=== PATIENT | female | born 1980 | race Caucasian/White ===

== ENCOUNTER 2019-08-09 13:34 | Emergency (ER) | payer MEDICAID, SELFPAY ==
[2019-08-09 13:36] VITALS: BP 127/89; PULSE 105; RESP 20; TEMP 36.6; O2SAT 99
--- NOTE | 2019-08-09 13:45 | DI.RAD_ITS ---
EXAM: XR CHEST 2V PA LATERAL CLINICAL HISTORY: cough, right sided CP, SOb TECHNIQUE: 2D digital imaging was performed. COMPARISON: No exams were available for comparison FINDINGS: MEDIASTINUM: Normal. HEART: Normal. PULMONARY VASCULATURE: Normal. LUNGS: Clear. PLEURAL SPACE: No pleural effusion or pneumothorax. BONE:Normal. OTHER FINDINGS:Normal. IMPRESSION: No acute pulmonary findings. DATA REPOSITORY: RADIATION DOSE DELIVERED:
[2019-08-09 14:00] VITALS: PULSE 96; RESP 16; O2SAT 0
[2019-08-09] MEDS: Albuterol/Ipratropium 3 ML UPD VIAL UPD (14:00)
--- NOTE | 2019-08-09 14:15 | W.ED.GENAD ---
Discharge Plan Disposition Patient Disposition: HOME Condition: Good Discharge Details Chief Complaint: RespSymp Clinical Impression: URI (upper respiratory infection), Cough, Viral URI with cough Primary Care Provider: Aneta Perez ED Provider: Connor Kern Home Meds and New Rx's Prescriptions: New ipratropium-albuterol 0.5 mg-3 mg(2.5 mg base)/3 mL solution for nebulization 3 ml IH Q6H Qty: 90 RF: 0 No Action metformin 500 mg Tablet 500 mg PO BID RF: 0 lamotrigine [Lamictal] 200 mg Tablet 275 mg PO DAILY RF: 0 clonazepam [Klonopin] 0.5 mg Tablet 0.25 mg PO QHS RF: 0 clonidine HCl 0.3 mg Tablet 0.3 mg PO QHS RF: 0 Discharge Instructions Instructions: Upper Respiratory Infection (ED), Acute Cough (ED) Additional Instructions: At this time your symptoms are consistent with a viral upper respiratory infection. It is very unlikely that this is from coronavirus. Your influenza test is negative. At this time you do not have the indications that the CDC would recommend for testing for coronavirus. Please use the breathing treatments every 4-6 hours for the next 2 to 3 days. It would be prudent to wear a mask at all times, always wash your hands frequently, follow-up closely with your primary care provider. You can always call their office first. If you notice any worsening of your symptoms, or any new symptoms such as vomiting, diarrhea, fever, chills, shortness of breath, chest pain, numbness, weakness, or fainting , please CALL and then return immediately to the emergency department for reevaluation. Please CALL first and then follow up with your primary care provider as soon as possible for reassessment and reevaluation. As always, it was a pleasure participating in your medical care today. Stand Alone Forms: Work Release Referrals: Aneta Perez [Primary Care Provider] - Discharge Data Discharge Date/Time-TO BE ENTERED AT DEPARTURE: 08/09/19 16:16 Medical Decision Making 38-year-old female with no significant past medical history except for tobacco abuse, who did get her flu shot this year, who presents today for evaluation of cough, chills, fatigue and myalgias. Patient states that for the last 3 to 4 days she has been having these symptoms. She does currently smoke, she does have occasional clear or yellow sputum. She denies any headache, she denies any neck pain. The patient denies any recent foreign travel or contact with recent immigrants, Travelers, or peoples of [place] or [facility]. The patient denies any recent travel to high risk countries, or other areas of noted or significant coronavirus infection. 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 They have seen a tremendous amount of influenza recently. Patient denies any other complaints at this time. Denies PE risk factors such as recent long car rides, immobilization, recent surgery, prior history of DVT or PE, family history of PE or DVT, morbid obesity, exogenous estrogen and smoking, hemoptysis, history of cancer. Physical exam demonstrates minimal wheezes in the bases, no crackles or rhonchi, vital signs stable. No signs of hypoxemia or significant respiratory distress. Patient does not appear to be at risk for coronavirus at this time. Based on CDC recommendations no indication for testing. I am certainly concerned for influenza. Will give a breathing treatment, get a chest x-ray to rule out pneumonia, EKG is unremarkable. Symptoms inconsistent with cardiac ischemia. Will monitor closely. Suspect viral etiology. 4 PM Patient's vital signs have completely normalized, she is feeling much better after the breathing treatments. Chest x-ray results demonstrate no acute pulmonary process or evidence of pneumonia. Patient's wheezes have resolved with breathing treatments. She continues to demonstrate no signs of hypoxemia, respiratory distress. Influenza testing is negative. Currently the patient denies any concerning travel history to a high risk area, direct or known indirect exposure to an area and/or patient's with known coronavirus activity. The patient has none of the concerning red flags recommended by the CDC for coronavirus including fever, cough, or shortness of breath. The patient looks notably clinically well, and does not demonstrate evidence of respiratory distress, significant or severe illness, or sepsis. At this time with the patient's history, clinical exam, and clinical symptoms, they are not in line or congruent with current CDC recommendations for testing. Additionally patient currently does not demonstrate symptoms indicative of admission or further observation here. At this time based on the patient's current clinical picture symptoms are likely secondary to a non-coronavirus viral illness. Out of an abundance of precaution taking into account the current level of national concern, the patient's entire clinical picture, and CDC recommendations, the patient can be discharged home. The option will be given for a 14-day quarantine, however at this time there is no clinical indication for this is the patient's clinical picture is not consistent with coronavirus. I do feel that if the patient symptoms improve she can return to work in the next 72 hours. She has elected for this course. I have recommended to the patient wearing of a mask for the next 14 days, as well as good handwashing techniques. I have extensively reviewed the treatment plan and discharge instructions with the patient. I have addressed all patient concerns at this time. The patient was made aware of what symptoms to monitor for that would warrant a return to the emergency department. I also discussed the importance of calling the patient's PCP, as well as the ED for any concerns or prior to return. Discussed the plan with the patient, they demonstrate verbal understanding and agreement with our assessment and plan at this time. EKG 14: 03 Rate 89, intervals normal, sinus rhythm, no significant ST elevations or depression, no concerning significant T wave inversions, no evidence of STEMI. FINDINGS: MEDIASTINUM: Normal. HEART: Normal. PULMONARY VASCULATURE: Normal. LUNGS: Clear. PLEURAL SPACE: No pleural effusion or pneumothorax. BONE:Normal. OTHER FINDINGS:Normal. IMPRESSION: No acute pulmonary findings. HPI General Date/Time Provider Initiated Documentation: 08/09/19 13:37. HPI Narrative: 38-year-old female with no significant past medical history except for tobacco abuse, who did get her flu shot this year, who presents today for evaluation of cough, chills, fatigue and myalgias. Patient states that for the last 3 to 4 days she has been having these symptoms. She does currently smoke, she does have occasional clear or yellow sputum. She denies any headache, she denies any neck pain. The patient denies any recent foreign travel or contact with recent immigrants, Travelers, or peoples of [place] or [facility]. The patient denies any recent travel to high risk countries, or other areas of noted or significant coronavirus infection. 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 They have seen a tremendous amount of influenza recently. Patient denies any other complaints at this time. Denies PE risk factors such as recent long car rides, immobilization, recent surgery, prior history of DVT or PE, family history of PE or DVT, morbid obesity, exogenous estrogen and smoking, hemoptysis, history of cancer. Related Data Home Medications Medication Instructions Recorded Confirmed clonazepam [Klonopin] 0.25 mg PO QHS 08/09/19 08/09/19 clonidine HCl 0.3 mg PO QHS 08/09/19 08/09/19 ipratropium-albuterol 3 ml IH Q6H #90 ml 08/09/19 lamotrigine [Lamictal] 275 mg PO DAILY 08/09/19 08/09/19 metformin 500 mg PO BID 08/09/19 08/09/19 Previous Rx's Medication Instructions Recorded ipratropium-albuterol 3 ml IH Q6H #90 ml 08/09/19 Allergies Allergy/AdvReac Type Severity Reaction Status Date / Time Penicillins Allergy Skin Rash Unverified 08/09/19 13:38 General Stated Complaint: RespSymp HAYLEY: 4 Review of Systems All systems reviewed & are unremarkable except as noted in HPI and below PFSH Medical History (Updated 08/09/19 @ 16:06 by Connor Kern DO) Anxiety (Chronic) Arthritis (Acute) Depression (Chronic) Diabetes mellitus, type 2 (Acute) Surgical History (Updated 08/09/19 @ 13:39 by Isela Joseph) H/O tubal ligation (Chronic) Social History Smoking/Tobacco Use Status: Current every day Tobacco Type: cigarettes Alcohol Intake: never Drug use: Never Substance use type: does not use Do you feel safe at home: Yes Do you feel safe in your relationship?: Yes Exam Narrative Exam Narrative: 1.Const: Well-nourished, Well-developed, appearing stated age 2.Eyes: PERRL, no conjunctival injection, and symmetrical lids. 3.ENT: Atraumatic external nose and ears. Moist MM. Neck: Symmetric, trachea midline, No thyromegaly. Patient demonstrates good movement of cervical neck. There is no nuchal rigidity, no nuchal tenderness. Patient is able to flex the neck without any difficulty or significant pain. Negative Kernig's and Brudzinski sign. 4.CVS: +S1/S2, No murmurs or gallops. Peripheral pulses 2+ and equal in all extremities. Brisk capillary refill in all extremities. 5.RESP: Unlabored respiratory effort. Minimal wheezes in the bases, no rhonchi or rales. 6.GI: Soft, Nontender/Nondistended, No hepatosplenomegaly. No guarding or rebound. 7.MSK: Normocephalic/Atraumatic, Extremities w/o deformity or ttp No cyanosis or clubbing, Normal movement of all extremities 8.Skin: Warm, Dry. No rashes or lesions. 9.Neuro: payment manager II-XII grossly intact. Sensation grossly intact, no focal neurologic deficits. 10.Psych: (AAO) x3. Appropriate mood and affect Course Vital Signs Vital signs: Vital Signs Temperature 36.6 C 08/09/19 13:36 Pulse 105 H 08/09/19 13:36 Respiratory Rate 20 08/09/19 13:36 Blood Pressure 127/89 08/09/19 13:36 Pulse Oximetry 99 08/09/19 13:36 Temperature 36.6 C 08/09/19 13:36 Temperature Source Skin 08/09/19 13:36 Pulse 96 H 08/09/19 14:00 Respiratory Rate 16 08/09/19 14:00 Respiratory Effort Non-Labored 08/09/19 13:44 Blood Pressure 127/89 08/09/19 13:36 Blood Pressure Position Sitting 08/09/19 13:36 Pulse Oximetry 0 L 08/09/19 14:00 Oxygen Delivery Method Room Air 08/09/19 14:00 Oxygen Flow Rate 0 08/09/19 14:00 Pain Level 4 08/09/19 13:36 Lab/Test Results Lab/Test Results: 08/09/19 14:00 Nasopharynx Influenza Types A,B Antigen - Pending
[2019-08-09 14:36] VITALS: BP 104/57; PULSE 91; RESP 18; TEMP 36.8; O2SAT 96
[2019-08-09 16:15] VITALS: BP 120/81; PULSE 87; RESP 18; TEMP 36.8; O2SAT 98
== END 2019-08-09 16:16 | disposition home or self-care (01) ==
PROVIDERS: Emergency Provider Student in an Organized Health Care Education/Training Program; PCP Physician Assistant Medical
DX: J06.9 Acute upper respiratory infection, unspecified (principal); R05 Cough; M79.10 Myalgia, unspecified site; E11.9 Type 2 diabetes mellitus without complications; Z79.84 Long term (current) use of oral hypoglycemic drugs; F17.210 Nicotine dependence, cigarettes, uncomplicated
CPT/HCPCS: 87449; 93005; 94640; 99284; 71046; 93010; J7620

== ENCOUNTER 2019-11-16 19:44 | Emergency (ER) | payer MEDICAID, SELFPAY ==
[2019-11-16 19:44] VITALS: BP 136/87; PULSE 117; RESP 29; O2SAT 96
--- NOTE | 2019-11-16 19:53 | ED.GENADUL_ITS ---
Discharge Plan Disposition Patient Disposition: HOME Condition: Improving Discharge Details Chief Complaint: PsychEval Clinical Impression: Suicidal behavior Primary Care Provider: Aneta Perez ED Provider: Yessica Luna Home Meds and New Rx's Prescriptions: No Action metformin 500 mg Tablet 500 mg PO BID RF: 0 clonazepam [Klonopin] 0.5 mg Tablet 0.25 mg PO QHS RF: 0 clonidine HCl 0.3 mg Tablet 0.3 mg PO QHS RF: 0 ipratropium-albuterol 0.5 mg-3 mg(2.5 mg base)/3 mL solution for nebulization 3 ml IH Q6H Qty: 90 RF: 0 lamotrigine [Lamictal] 25 mg Tablet 50 mg PO DAILY RF: 0 lamotrigine [Lamictal] 25 mg Tablet 75 mg PO HS RF: 0 amitriptyline 100 mg Tablet 100 mg PO QHS RF: 0 Discharge Instructions Instructions: Depression (ED), Suicide Prevention (ED) Additional Instructions: Please return to the ED or call emergency suicide prevention hotline if any recurrence of suicidal thoughts. Call [facility] emergency hotline at for any worsening or concerns. Follow up with primary care provider in 3-5 days. Return to ED sooner if any worsening suicidal thoughts or concerns. Increase oral fluids. Stay with someone tonight keep your appointment tomorrow. Stand Alone Forms: Work Release Referrals: Aneta Perez [Primary Care Provider] - Discharge Data Discharge Date/Time-TO BE ENTERED AT DEPARTURE: 11/17/19 00:20 Medical Decision Making <Yessica Luna - Last Filed: 11/19/19 16:14> 39-year-old female presents via EMS for overdose. Patient allegedly took eight 0.5 mg tablets of clonazepam, two 0.25 mg half tablets of clonazepam. And drinks 612 ounce beers prior to arrival. Patient was combative, and uncooperative on scene. Patient was given 250 mg ketamine prior to arrival by EMS. She is answering questions somewhat appropriately. When asked about suicidal ideations patient states what is the point of living. Unknown if took any other medications. She is tachycardic mildly upon arrival at 117. No significant signs of trauma noted. 2057: EKG was reviewed by Dr. Chris Estevez MD ER attending, sinus tachycardia, no ST elevation or depression, no ectopy rate of 110 MO interval 156, QT 348 QTC 471. Old EKG was available for review from July [id number]: 2 restraints taken off per staff mechanical engineer, patient is more alert and oriented, is talking, is tearful. Is able to answer questions appropriately. Restraint debriefing performed. Patient [id number] reevaluation, discussed removal of all restraints at this time, instructed that patient is not able to leave at this time and verbalized understanding if patient does attempt to leave that we will re-restrain her. Verbalized understanding. staff mechanical engineer to let patient up to the bedside commode and patient is requesting to call her family which will be allowed at this time. At this time plan is to admit patient, pending metabolization of substances, medical clearance, and behavioral health eval in a.m. 2132: Spoke with [place] at poison control center regarding patient, she recommends observation for at least 5 to 6 hours. Repeating a salicylate level now, since for salicylate level is 6.5. Poison control's recommendation is to repeat Tylenol level in 2 to 4 hours. Plan is to admit patient to the hospital for overdose and observation with repeat serial salicylate levels and behavioral health eval after patient is more sober. 2144: Spoke with Dr. Damian who is on-call for hospitalist at this time, discussed patient case in details, he agrees to come down and perform patient evaluation bedside for possible admission. 2158: Dr. Damian at bedside for patient evaluation. 2250: Patient getting more and more agitated and is demanding to leave. When asked why she took these medications patient states I have been asking for help for a long time, I been battling depression for a long time, there is only so much person can take what else was I supposed to do?. She is alert and oriented x3. States I want to go home. Spoke with Maria Elena with [facility] who agrees to do patient evaluation now. Discussed patient case and details with her. 2331: Spoke again Maria Elena with [facility], patient is displaying some future thinking and states that she does not want to lose her job, she has a doctor's appointment tomorrow, plan is to possibly have her discharged with a friend. At this time, a care plan is in place to have her friend Matias come and pick her up. Scott with [facility] spoke with friend on the phone, and friend did verify that she will call them with any change in patient condition, will make sure that she follows up with her doctor tomorrow, and [facility] human services will follow up with her tomorrow as well. At this time patient is to be discharged home in care of a friend. Will give suicide precautions and emergency hotline and strict return instructions. <Yogesh Estevez MD - Last Filed: 11/17/19 00:41> Patient seen and evaluated by me. Case discussed and plan made with nurse practitioner Jeremy. Agree with note and management as documented. Plan for admission overnight for mental status to clear and then be evaluated by mental health in morning. Lab Data Lab results reviewed: Yes I reviewed the patient's lab results. HPI <Yessica Luna - Last Filed: 11/19/19 16:14> General Mode of arrival: EMS . Date/Time Provider Initiated Documentation: 11/16/19 19:52 . Limitations to Documentation: altered mental status . Information obtained by: EMS . HPI Narrative: 39-year-old female presents via EMS for overdose. Patient allegedly took eight 0.5 mg tablets of clonazepam, two 0.25 mg half tablets of clonazepam. And drinks 612 ounce beers prior to arrival. Patient was combative, and uncooperative on scene. Patient was given 250 mg ketamine prior to arrival by EMS. She is answering questions somewhat appropriately. When asked about suicidal ideations patient states what is the point of living. Unknown if took any other medications. She is tachycardic mildly upon arrival at 117. No significant signs of trauma noted. Related Data Home Medications Medication Instructions Recorded Confirmed clonazepam [Klonopin] 0.25 mg PO QHS 08/09/19 11/16/19 clonidine HCl 0.3 mg PO QHS 08/09/19 11/16/19 ipratropium-albuterol 3 ml IH Q6H #90 ml 08/09/19 11/16/19 metformin 500 mg PO BID 08/09/19 11/16/19 amitriptyline 100 mg PO QHS 11/16/19 11/16/19 lamotrigine [Lamictal] 50 mg PO DAILY 11/16/19 11/16/19 lamotrigine [Lamictal] 75 mg PO HS 11/16/19 11/16/19 Previous Rx's Medication Instructions Recorded ipratropium-albuterol 3 ml IH Q6H #90 ml 08/09/19 Allergies Allergy/AdvReac Type Severity Reaction Status Date / Time Penicillins Allergy Skin Rash Unverified 08/09/19 13:38 General Stated Complaint: PsychEval HAYLEY: 2 Review of Systems <Yessica [place] Last Filed: 11/19/19 16:14> All systems reviewed & are unremarkable except as noted in HPI and below and Unobtainable due to mental status (Intoxicated and sedated upon arrival) Psychiatric Psychiatric: Reports suicidal ideation [facility] <Yessicashelby [place] Last Filed: 11/19/19 16:14> Medical History Anxiety (Chronic) Arthritis (Acute) Depression (Chronic) Diabetes mellitus, type 2 (Acute) Surgical History H/O tubal ligation (Chronic) Social History Smoking/Tobacco Use Status: Current every day Tobacco Type: cigarettes Alcohol Intake: current Drug use: Never Substance use type: does not use Do you feel safe at home: Yes Do you feel safe in your relationship?: Yes Exam <Yessica Luna Last Filed: 11/19/19 16:14> Const General: well developed, combative (Asking to go home) and intoxicated appearing Nutritional Appearance: average body habitus and well nourished Orientation: awake Limitations: altered mental status Eyes Eyelids: eyelid abnormality (Bilateral upper eyelid swollen) Pupils: pupil size bilaterally 5 (Round bilaterally, sluggish) EOM: nystagmus (Most likely due to ketamine) Chest Chest: normal inspection of the chest and no tenderness Resp Effort & Inspection: normal respiratory effort Auscultation: clear to auscultation bilaterally, no rhonchi and no wheezes Cardio Palpation: normal PMI Rate: tachycardic Rhythm: regular rhythm Heart Sounds: S1 normal and S2 normal GI Inspection: normal to inspection Palpation: soft Auscultation: normal bowel sounds Neuro Cranial Nerves: nystagmus (Most likely due to ketamine) Psych Speech and Movement: slowed movement and slurred speech Affect: sad Attitude: belligerent Thought Content: suicidality (Suicide attempt via overdose) Insight: poor Judgment: poor Course <Yessica Luna - Last Filed: 11/19/19 16:14> Vital Signs Vital signs: Vital Signs Pulse 117 H 11/16/19 19:44 Respiratory Rate 29 H 11/16/19 19:44 Blood Pressure 136/87 11/16/19 19:44 Pulse Oximetry 96 11/16/19 19:44 Pulse 117 H 11/16/19 19:44 Respiratory Rate 29 H 11/16/19 19:44 Blood Pressure 136/87 11/16/19 19:44 Blood Pressure Position Supine 11/16/19 19:44 Pulse Oximetry 96 11/16/19 19:44 Oxygen Delivery Method Room Air 11/16/19 19:44 Oxygen Flow Rate 0 11/16/19 19:44 <Yogesh Estevez MD - Last Filed: 11/17/19 00:41> Time of Face to Face 2nd Face to Face: Time of Face to Face: 21:10 Patient's Immediate Situation Requiring Restraints/Seclusion: Harm to Staff & Others Patient Response to Restraints: Tolerating without Problems Patient's Medical & Behavioral Condition: Patient taken down from four- point restraints to two-point restraints. Patient requesting to be discharged. Discussed with patient that her attempt at harming herself as well as the medications and alcohol she has on board precludes discharge or even mental health eval. Explained to patient that if she can stay calm and cooperative we will plan on removing rest of restraints within 30 minutes. Patient made aware that she will be admitted to the ICU until mental status clears and then will need mental health evaluation. Need for Continuation of Restraints Has Been Assessed: Restraints Continued
--- NOTE | 2019-11-16 19:53 | PDOC.CMSAFED ---
- If Service Date Differs Date of service: 11/16/19 Time of Service: 19:53 Care Management Safety Plan Chief complaint: Suhail is a 39 year old female who resides in [place], [place]. A review of her medical records reveal a history of anxiety and depression. This evening, she presents in the ED via EMS after taking an overdose of medications and drinking several beers. Her SKIP shortly after her arrival at hospital is 113.9. Suhail was given ketamine by EMS due to being combative and uncooperative on scene. She continued to be agitated at the hospital and had to be placed in restraints. CM will respond to ED to assess patient after patient has been medically cleared and assessed by screener. If screener deems patient meets criteria for psychiatric stabilization CM will facilitate interdepartmental huddle with [facility] screener for safety planning considerations and meet with patient to review [facility] policy and safety plan, establish individual wishes for treatment and maintain patient rights. In the interim; please note safety plan below to guide patient care while awaiting further assessment in the ED. SAFETY PLAN: 1. Will remain on suicide precautions and in paper clothes. 2. Will remain in room under direct supervision of one-on-one staff at all times provided by [employer], [employer], [employer] social staff worker. 3. May have paper cups, plates, finger foods as well as a cardboard spoon with which to eat meals. 4. Follow [facility] Management of the Admitted Behavioral Health Patient policy. 5. Comfort bath system only. 6. No personal belongings 7. No visitors. 8. Activities: None at this time. 8. No telephone privileges at this time. 9. Due to VOLUNTARY status, if patient wishes to leave [facility], the [facility] rebar worker must be contacted to evaluate patient prior to patient exiting the building. If deemed appropriate for inpatient psychiatric care, safety plan will be established with patient, and care team, to adhere to patient goals, identify restrictions based on behavioral status, address nutrition, and determine allowed personal belongings, tools for hygiene and personal care. As well plan will determine level of activity including ambulation, level of supervision, visitors, and determine privileges based on level of acuity, behaviors and level of engagement by patient.
[2019-11-16 20:06] VITALS: BP 136/87; PULSE 112; RESP 18
[2019-11-16 20:26] LABS: Abs Immature Grans 0.01 k/cumm (0.0-0.09); Absolute Basophil Count 0.07 k/cumm (0.0-0.2); Absolute Eosinophil Count 0.84 k/cumm (0.0-0.7); Absolute Lymphocyte Count 2.91 k/cumm (1.2-3.4); Absolute Monocyte Count 0.61 k/cumm (0.11-0.7); Absolute Neutrophil Count 5.52 k/cumm (1.2-6.7); Basophils % 0.7; Eosinophils % 8.4; HCT 39.4 % (36.0-46.0); HGB 13.7 g/dL (12.0-15.5); Immature Grans % 0.1 %; Lymphocytes % 29.2; Mean Corp. HGB Concentration 34.8 g/dL (32.0-36.0); Mean Corpuscular Hemoglobin 32.4 pg (27.0-33.0); Mean Corpuscular Volume 93.1 fL (80-95); Mean Platelet Volume 9.5 fL (8.0-11.0); Monocytes % 6.1; Neutrophils % 55.5; Platelet Count 423 x1000/uL (130-400); RBC 4.23 m/cumm (4.00-5.20); RBC Distribution Width 13.6 % (11.7-14.6); White Blood Cell Count 9.96 k/cumm (4.4-10.8)
[2019-11-16 20:33] VITALS: BP 125/91; PULSE 109; RESP 23; O2SAT 97
[2019-11-16 20:46] LABS: ALT 25 U/L (14-59); AST 14 U/L (15-37); Albumin 3.8 g/dL (3.4-5.0); Alkaline Phosphatase 107 U/L (46-116); Anion Gap 12.7 mmol/L (3-11); BUN 7 mg/dL (7-18); Bilirubin, Total 0.3 mg/dL (0.2-1.0); CO2 23.3 mmol/L (21.0-32.0); CREATININE 0.81 mg/dL (0.55-1.02); Calcium 8.7 mg/dL (8.5-10.1); Chloride 101 mmol/L (98-107); ETHANOL BLOOD 113.9 mg/dL (<3); Glucose 116 mg/dL (74-106); Potassium 3.4 mmol/L (3.5-5.1); Sodium 137 mmol/L (136-145); Total Protein 7.6 g/dL (6.4-8.2)
[2019-11-16 21:04] LABS: Salicylate 6.5 mg/dL (2.8-20.0)
[2019-11-16 21:17] LABS: Acetaminophen < 2 ug/mL (10-30)
[2019-11-16] MEDS: Normal Saline 1,000 ML 1000 ML IV (21:30)
[2019-11-16 21:57] LABS: Bilirubin Negative (Negative); Blood Negative (Negative); Clarity Clear (Clear); Glucose Negative (Negative); Ketones Negative (Negative); Leukocyte Esterase Negative (Negative); Nitrite Negative (Negative); Urobilinogen 0.2 EU/dL (Up TO 0.2)
[2019-11-16 21:58] VITALS: BP 139/97; PULSE 102; RESP 17; O2SAT 97
--- NOTE | 2019-11-16 22:10 | W.PM.HP.N ---
Date of service: 11/16/19 Time of Service: 22:10 Assessment and Plan Assessment and plan (1) Suicidal behavior: Status: Acute Assessment and plan: Suicidal ideation with drug OD. Effects appear modest at present, and apparently abating. I otherwise see no specific medical issues at present (I cannot account for salicycylates in tox screen, but will be rechecking to assure stable). Will monitor overnight, hydrate and plan on eval in AM. History of Present Illness History of Present Illness Chief Complaint: overdose Narrative: 39 female with h/o depression, anxiety. Brought by EMS for combative behavior, Ketamine in field. Reports took eight 0.5 Klonopin, plus alcohol. Stated to ER no point to living. Tells me there is a lot going on but does not elaborate. In ER w/u of note for EtOH 113, +salicylates 6.5 (denies taking) and neg Tylenol; remainder of tox screen pending. Was initially groggy, now alert and demanding to go home. Advised will not be able to leave until cleared by , and will not be able to do so until medically cleared and sober. Review of Systems All systems reviewed & are unremarkable except as noted in HPI and below PFSH Medical History Anxiety (Chronic) Arthritis (Acute) Depression (Chronic) Diabetes mellitus, type 2 (Acute) Surgical History H/O tubal ligation (Chronic) Social History Smoking/Tobacco Use Status: Current every day Tobacco Type: cigarettes Alcohol Intake: current Drug use: Never Substance use type: does not use Do you feel safe at home: Yes Do you feel safe in your relationship?: Yes Meds Home Medications and Allergies Home Medications Medication Instructions Recorded Confirmed Type clonazepam [Klonopin] 0.25 mg PO QHS 08/09/19 11/16/19 History clonidine HCl 0.3 mg PO QHS 08/09/19 11/16/19 History ipratropium-albuterol 3 ml IH Q6H #90 ml 08/09/19 11/16/19 Rx metformin 500 mg PO BID 08/09/19 11/16/19 History amitriptyline 100 mg PO QHS 11/16/19 11/16/19 History lamotrigine [Lamictal] 50 mg PO DAILY 11/16/19 11/16/19 History lamotrigine [Lamictal] 75 mg PO HS 11/16/19 11/16/19 History Allergies Allergy/AdvReac Type Severity Reaction Status Date / Time Penicillins Allergy Skin Rash Unverified 08/09/19 13:38 Exam Narrative Exam Narrative: 1239/97, 102; 17, 36.8, 97% RA. HEENT atraumatic; neck supple; lunhs clear5; heart RRR w/o MRG; abdomen soft and NT; extremities w/o edema; neuro alert, on phone, moves all 4s. Results EKG sinus tach, otherwise WNL Labs Result diagrams: 11/16/19 19:45 11/16/19 19:45 Labs: Laboratory Results - last 24 hr 11/16/19 11/16/19 11/16/19 19:45 19:45 19:45 WBC 9.96 RBC 4.23 Hgb 13.7 Hct 39.4 MCV 93.1 MCH 32.4 MCHC 34.8 RDW 13.6 Plt Count 423 H MPV 9.5 Immature Gran % 0.1 Neutrophils % 55.5 Lymphocytes % 29.2 Monocytes % 6.1 Eosinophils % 8.4 Basophils % 0.7 Absolute Neutrophils 5.52 Absolute Lymphocytes 2.91 Absolute Monocytes 0.61 Absolute Eosinophils 0.84 H Absolute Basophils 0.07 Sodium 137 Potassium 3.4 L Chloride 101 Carbon Dioxide 23.3 Anion Gap 12.7 H BUN 7 Creatinine 0.81 Estimated GFR/1.73 m2 >= 60.00 Glucose 116 H Calcium 8.7 Total Bilirubin 0.3 AST 14 L ALT 25 Alkaline Phosphatase 107 Total Protein 7.6 Albumin 3.8 TSH 1.20 Urine Color Urine Clarity Urine pH Ur Specific [place] Urine Protein Urine Ketones Urine Blood Urine Nitrite Urine Bilirubin Urine Urobilinogen Ur Leukocyte Esterase Urine Glucose Salicylates 6.5 Acetaminophen < 2 Ethyl Alcohol 113.9 11/16/19 21:15 WBC RBC Hgb Hct MCV MCH MCHC RDW Plt Count MPV Immature Gran % Neutrophils % Lymphocytes % Monocytes % Eosinophils % Basophils % Absolute Neutrophils Absolute Lymphocytes Absolute Monocytes Absolute Eosinophils Absolute Basophils Sodium Potassium Chloride Carbon Dioxide Anion Gap BUN Creatinine Estimated GFR/1.73 m2 Glucose Calcium Total Bilirubin AST ALT Alkaline Phosphatase Total Protein Albumin TSH Urine Color Yellow Urine Clarity Clear Urine pH 6.0 Ur Specific [place] 1.010 Urine Protein Negative Urine Ketones Negative Urine Blood Negative Urine Nitrite Negative Urine Bilirubin Negative Urine Urobilinogen 0.2 Ur Leukocyte Esterase Negative Urine Glucose Negative Salicylates Acetaminophen Ethyl Alcohol Last Vital Signs Pulse 102 H 11/16/19 21:58 Resp 17 11/16/19 21:58 BP 139/97 H 11/16/19 21:58 Pulse Ox 97 11/16/19 21:58
[2019-11-16 22:14] LABS: *AMPHETAMINES SCREEN URINE Negative (Negative); *BARBITURATES SCREEN URINE Negative (Negative); *BENZODIAZEPINES SCREEN URINE Negative (Negative); Cannabinoids THC Negative (Negative); Cocaine Screen,Urine Negative (Negative); METHADONE URINE SCREEN Negative (Negative); OPIATES URINE SCREEN Negative (Negative)
[2019-11-16 22:17] LABS: Salicylate 6.4 mg/dL (2.8-20.0)
[2019-11-16 22:18] LABS: Tricyclic Antidepressants POSITIVE (Negative)
[2019-11-16 22:30] VITALS: BP 129/90; PULSE 99; RESP 16; O2SAT 97
--- NOTE | 2019-11-16 22:35 | NUR.NOTE ---
Pt refusing IVF. APPRENTICESHIP TRAINING REPRESENTATIVE Jeremy aware. Pt states she wants to leave. Discussed multiple times with pt that she is unable to leave.
--- NOTE | 2019-11-16 23:42 | PDOC.MHCN ---
Date of service: 11/16/19 Time of Service: 23:42 Mental Health Crisis Note Presenting Issue How did you arrive at the ED and why did you come: Client arrived at ED by ambulance after son called 911 reporting client took 10 clonazepam and drinking 6 beers. Precipitating Factors Client reports no SI or HI. Client reported that she took the clonazepam to kill herself because what is the point of living. Client feels like she is reaching out for support, but is unable to get the support she needs. Client would like counseling and some help getting her on the right meds. Client reported seeing her PCP on Thursday, and has an appointment tomorrow. Client does not want hospitalization but would like outreach support moving forward. Disposition BEHAVIOR: slightly agitated but cooperative EYE CONTACT: minimal eye contact over the ipad MOOD: irritable AFFECT: normal APPETITE: not good SLEEP(trouble falling/staying asleep: none reported Plan This clinician and client came up with a safety plan. This clinician spoke to clients friend who was going to pick her up and stay with her for the night. Client will call ES when she wakes in the morning to check in. [facility] will contact clients PCP before her appointment tomorrow afternoon to inform them of her hospital stay and coordinate supports moving forward. This rfp writer spoke to Yessica and it was agreed that client would be discharged following the safety plan. Client will be given the ES number to call if she needs support. Signature Clinician's Name/Title: Lynette Levin [facility] Emergency Clinician
[2019-11-16 23:52] VITALS: BP 119/83; PULSE 99; RESP 16; TEMP 36.8; O2SAT 100
--- NOTE | 2019-11-16 23:52 | NUR.NOTE ---
Pt A&Ox3, requeting to go home. eval by NESTOR Luna. Pt cleared for mental health eval. Mental health spoke with pt, cleared for DC home. Friend Neda to picker and packer and take home. IV removed. Pt denies SI. Feels safe to go home. Belongings returned.
[2019-11-17 12:27] LABS: COVID-19 RT-PCR UVMMC Result Negative (Negative)
== END 2019-11-17 00:20 | disposition home or self-care (01) ==
PROVIDERS: Emergency Medicine; Emergency Provider Registered Nurse Emergency; PCP Physician Assistant Medical
DX: T42.4X2A Poisoning by benzodiazepines, intentional self-harm, initial encounter (principal); F41.8 Other specified anxiety disorders; E11.9 Type 2 diabetes mellitus without complications; Z79.84 Long term (current) use of oral hypoglycemic drugs; Z78.1 Physical restraint status; R45.1 Restlessness and agitation
CPT/HCPCS: 36415; 80053; 80307; 81025; 93005; 99222; 99283; 99285; U0003; 80320; 80329; 81003; 84443; 85025; 93010; 99284

== ENCOUNTER 2020-01-31 14:19 | Emergency (ER) | payer MEDICAID, SELFPAY ==
[2020-01-31 14:27] VITALS: BP 129/99; PULSE 95; RESP 16; TEMP 36.5; O2SAT 96
--- NOTE | 2020-01-31 14:45 | DI.CT_ITS ---
EXAM: CT ABDOMEN PELVIS W CLINICAL HISTORY: epigastric abd pain, constipation, r/o SBO TECHNIQUE: Imaging Protocol: Axial computed tomography images with coronal and sagittal reformatted images were created and reviewed CONTRAST MATERIAL: Intravenous: Omnipaque 350 Contrast volume:100 mL Oral: No COMPARISON: No exams were available for comparison FINDINGS: ABDOMEN: Lung Bases: Basilar atelectasis. Liver: Normal density. No measurable mass. Portal, Superior Mesenteric, and Splenic Veins: Unremarkable. Gallbladder and Biliary Tract: No radiodense calculus or dilation. Pancreas: Normal density, no abnormal calcifications or inflammatory process. Spleen: Normal. Adrenals: No masses seen. Kidneys: Normal size, contour and axis. No radiodense stones or obstructive uropathy. No masses seen. Abdominal Aorta: Abdominal portion non-dilated. Bowel: No obstruction. There is bowel wall thickening seen in the distal stomach duodenum and proxim al small bowel. The findings are suspicious for gastroenteritis. Appendix is unremarkable. Peritoneal Cavity: No ascites, collection or mesenteric inflammatory response. Lymph Nodes: Within normal limits. Bones: Unremarkable. Soft Tissues: Unremarkable. PELVIS: Bladder: Symmetric distention, no gross wall thickening. Reproductive Organs: Unremarkable as visualized. Lymph Nodes: Within normal limits. Bones: Within normal limits. IMPRESSION: Bowel wall thickening involving the stomach duodenum and proximal small bowel suspicious for gastroen teritis. Findings were discussed with the emergency department on the date of the examination. RADIATION DOSE DELIVERED: 888.63mGy.cm Total DLP DATA REPOSITORY: All CT scans at this facility are submitted to the National Radiology Data Registry (NRDR) Dose Index Registry (DIR) with the [employer] (ACR). RADIATION OPTIMIZATION: All CT scans at this facility use at least one of these dose optimization te chniques: automated exposure control; mA and/or kV adjustment per patient size (includes targeted exa ms where dose is matched to clinical indication); or iterative reconstruction.
--- NOTE | 2020-01-31 14:45 | DI.US_ITS ---
EXAM: US ABDOMEN LIMITED CLINICAL HISTORY: epigastric abdominal pain/r/o cholecystitis TECHNIQUE: Ultrasound abdomen performed using standard protocol. COMPARISON: No exams were available for comparison FINDINGS: IVC: Visualized portions normal caliber. PANCREAS: Normal where visualized. LIVER: Normal. Hepatopedal flow in the Portal Vein. GALLBLADDER: No evidence of cholelithiasis. No evidence of wall thickening. No pericholecystic fluid identified. BILIARY SYSTEM: Common bile duct measures < 7 mm. No intrahepatic biliary ductal dilation. TREVINO'S SIGN: Negative. Right kidney: No evidence of renal calculi. No evidence of hydronephrosis. No renal mass or cyst iden tified. ASCITES: None seen. IMPRESSION: Normal sonographic appearance of the upper abdomen. DATA REPOSITORY:
--- NOTE | 2020-01-31 14:45 | RT.EKG_ITS ---
APPROVED REPORT Exam: Resting ECG Patient Location: E HR:81 bpm ECG Measurements Heart Rate 81 AXIS SD 161 P 57 QRSd 86 QRS -7 QT 379 T 23 QTc 442 Conclusion Sinus rhythm...normal P axis, V-rate 60- 99 Low voltage, precordial leads...precordial leads <1.0mV. No STEMI. Nondiagnostic.
--- NOTE | 2020-01-31 14:59 | W.ED.GENAD ---
Discharge Plan Disposition Patient Disposition: HOME Condition: Improving Discharge Details Chief Complaint: Abd Prob Clinical Impression: Epigastric abdominal pain, NSAID long-term use, Gastroenteritis Primary Care Provider: Aneta Perez ED Provider: Sylwia Zheng Home Meds and New Rx's Prescriptions: Continued metformin 500 mg Tablet 500 mg PO BID RF: 0 clonazepam [Klonopin] 0.5 mg Tablet 0.25 mg PO QHS RF: 0 clonidine HCl 0.3 mg Tablet 0.3 mg PO QHS RF: 0 ipratropium-albuterol 0.5 mg-3 mg(2.5 mg base)/3 mL solution for nebulization 3 ml IH Q6H Qty: 90 RF: 0 lamotrigine [Lamictal] 25 mg Tablet 50 mg PO DAILY RF: 0 lamotrigine [Lamictal] 25 mg Tablet 75 mg PO HS RF: 0 amitriptyline 100 mg Tablet 100 mg PO QHS RF: 0 Discharge Instructions Instructions: Gastroenteritis (ED), Epigastric Pain (ED) Additional Instructions: Hold on taking your naproxen until follow-up with general surgery. Take no more than 3000 mg of Tylenol and call your arthritis doctor for any other recommendations for your chronic arthritis pain. You can try [id number] Pepcid or Prilosec or Prevacid to help for protection against a possible ulcer. Call the general surgery office tomorrow to schedule a follow-up appointment for reevaluation within the next 1 to 2 weeks. Return immediately to the emergency department if you develop any worsening or new concerning symptoms. Referrals: Micaela Abraham DO [OSTEOPATHIC DOCTOR] - Discharge Data Discharge Date/Time-TO BE ENTERED AT DEPARTURE: 01/31/20 17:05 Discharge Physician: Sylwia Zheng Medical Decision Making [id number] -- 39-year-old female with a history of anxiety, diabetes, depression who presents for epigastric gas like pain and a sensation of a lump in her upper abdomen for the past week. She admits to an episode of loose stools the other day as well as intermittent nausea. EKG notes a rate of 81, sinus with no acute ST-T wave ischemic changes. Her vitals are within normal limits and she appears nontoxic. She has right upper quadrant, epigastric and left upper quadrant tenderness but her abdomen is otherwise soft without guarding or rigidity. Differential diagnosis includes GERD, PUD, gastritis, cholelithiasis, cholecystitis, gastroenteritis or less likely small bowel obstruction. Will place an IV, bolus IV fluids, screening labs, urine and obtain gallbladder ultrasound and CT abdomen and pelvis and give a GI cocktail and Pepcid and Zofran and reassess. 1600 -- Labs and imaging reviewed. Ultrasound negative. CT notes findings consistent with possible gastroenteritis. No other acute findings on work-up. Patient reassessed and her pain is significantly improved. Patient placed on surgery follow-up list for further evaluation and consideration for outpatient endoscopy if symptoms persist. She was advised to hold her naproxen until follow-up with surgery and to start an [id number] H2 alejandro or PPI. Usual and customary return precautions given prior to discharge. Medical Records Medical records reviewed: Yes I reviewed the patient's medical records. Imaging Data Radiologic Study: Radiologist's impression: US ABDOMEN LIMITED CLINICAL HISTORY: epigastric abdominal pain/r/o cholecystitis TECHNIQUE: Ultrasound abdomen performed using standard protocol. COMPARISON: No exams were available for comparison FINDINGS: IVC: Visualized portions normal caliber. PANCREAS: Normal where visualized. LIVER: Normal. Hepatopedal flow in the Portal Vein. GALLBLADDER: No evidence of cholelithiasis. No evidence of wall thickening. No pericholecystic fluid identified. BILIARY SYSTEM: Common bile duct measures < 7 mm. No intrahepatic biliary ductal dilation. TREVINO'S SIGN: Negative. Right kidney: No evidence of renal calculi. No evidence of hydronephrosis. No renal mass or cyst identified. ASCITES: None seen. IMPRESSION: Normal sonographic appearance of the upper abdomen. CT ABDOMEN PELVIS W CLINICAL HISTORY: epigastric abd pain, constipation, r/o SBO TECHNIQUE: Imaging Protocol: Axial computed tomography images with coronal and sagittal reformatted images were created and reviewed CONTRAST MATERIAL: Intravenous: Omnipaque 350 Contrast volume:100 mL Oral: No COMPARISON: No exams were available for comparison FINDINGS: ABDOMEN: Lung Bases: Basilar atelectasis. Liver: Normal density. No measurable mass. Portal, Superior Mesenteric, and Splenic Veins: Unremarkable. Gallbladder and Biliary Tract: No radiodense calculus or dilation. Pancreas: Normal density, no abnormal calcifications or inflammatory process. Spleen: Normal. Adrenals: No masses seen. Kidneys: Normal size, contour and axis. No radiodense stones or obstructive uropathy. No masses seen. Abdominal Aorta: Abdominal portion non-dilated. Bowel: No obstruction. There is bowel wall thickening seen in the distal stomach duodenum and proximal small bowel. The findings are suspicious for gastroenteritis. Appendix is unremarkable. Peritoneal Cavity: No ascites, collection or mesenteric inflammatory response. Lymph Nodes: Within normal limits. Bones: Unremarkable. Soft Tissues: Unremarkable. PELVIS: Bladder: Symmetric distention, no gross wall thickening. Reproductive Organs: Unremarkable as visualized. Lymph Nodes: Within normal limits. Bones: Within normal limits. IMPRESSION: Bowel wall thickening involving the stomach duodenum and proximal small bowel suspicious for gastroenteritis. Lab Data Lab results reviewed: Yes I reviewed the patient's lab results. Labs: Laboratory Tests Range/Units 01/31/20 01/31/20 01/31/20 15:14 15:14 15:14 WBC (4.4-10.8) 10^3/uL 8.83 RBC (3.93-5.22) 10^6/uL 3.85 L Hgb (11.2-15.7) g/dL 12.9 Hct (36.0-46.0) % 37.5 MCV (80-95) fL 97.4 H MCH (27.0-33.0) pg 33.5 H MCHC (32.0-36.0) % 34.4 RDW (11.7-14.6) % 12.4 Plt Count (130-400) 10^3/uL 383 MPV (8.0-11.0) fL 9.2 Immature Gran % 0.2 Neutrophils % 62.9 Lymphocytes % 21.9 Monocytes % 6.0 Eosinophils % 7.9 Basophils % 1.1 Nucleated RBC % % 0 Absolute Neutrophils (1.2-6.7) 10^3/uL 5.55 Absolute Lymphocytes (1.2-3.4) 10^3/uL 1.93 Absolute Monocytes (0.1-0.8) 10^3/uL 0.53 Absolute Eosinophils (0.0-0.7) 10^3/uL 0.70 Absolute Basophils (0.0-0.2) 10^3/uL 0.10 Sodium (136-145) mmol/L 135 L Potassium (3.5-5.1) mmol/L 3.8 Chloride (98-107) mmol/L 102 Carbon Dioxide (21.0-32.0) mmol/L 22.1 Anion Gap (3-11) mmol/L 10.9 BUN (7-18) mg/dL 21 H Creatinine (0.55-1.02) mg/dL 0.86 Estimated GFR/1.73 m2 (mL/min/1.73m2) >= 60.00 Glucose (74-106) mg/dL 132 H Calcium (8.5-10.1) mg/dL 8.5 Magnesium (1.8-2.4) mg/dL 1.8 Total Bilirubin (0.2-1.0) mg/dL 0.2 AST (15-37) U/L 11 L ALT (14-59) U/L 17 Alkaline Phosphatase (46-116) U/L 118 H Troponin I (<0.06) ng/mL < 0.05 Total Protein (6.4-8.2) g/dL 6.9 Albumin (3.4-5.0) g/dL 3.4 Lipase (73-393) U/L 101 ECG Data Attestation: I personally reviewed and interpreted this ECG (s) as follows: Interpretation: Rate of 81, sinus, no acute ST elevation or depression. NC 161. QRS 86. QTc 442. HPI General Mode of arrival: ambulatory. Date/Time Provider Initiated Documentation: 01/31/20 14:26. Limitations to Documentation: no limitations. Information obtained by: patient. HPI Narrative: Patient is a 39-year-old female with a history of arthritis, anxiety, depression, diabetes who presents with upper abdominal pain for the past week. Patient states the pain is constant, aching without radiation. She also describes feeling a lump within her upper abdomen and epigastric region for the past week. She denies any aggravating or alleviating factors. She states she takes naproxen twice daily for the past several years for her chronic arthritis. She denies any fever, cough, chest pain, shortness of breath, nausea, vomiting or urinary symptoms. She states she normally has constipation with a small hard bowel movement every few days and that her last bowel movement was watery and brown a few days ago. She denies any recent travel, known sick contacts, rectal bleeding or change in appetite or diet. Related Data Home Medications Medication Instructions Recorded Confirmed clonazepam [Klonopin] 0.25 mg PO QHS 08/09/19 01/31/20 clonidine HCl 0.3 mg PO QHS 08/09/19 01/31/20 ipratropium-albuterol 3 ml IH Q6H #90 ml 08/09/19 01/31/20 metformin 500 mg PO BID 08/09/19 01/31/20 amitriptyline 100 mg PO QHS 11/16/19 01/31/20 lamotrigine [Lamictal] 50 mg PO DAILY 11/16/19 01/31/20 lamotrigine [Lamictal] 75 mg PO HS 11/16/19 01/31/20 Previous Rx's Medication Instructions Recorded ipratropium-albuterol 3 ml IH Q6H #90 ml 08/09/19 Allergies Allergy/AdvReac Type Severity Reaction Status Date / Time acetaminophen Allergy Unverified 01/31/20 14:30 [From Tylenol-Codeine] amoxicillin Allergy Unverified 01/31/20 14:30 codeine Allergy Unverified 01/31/20 14:30 [From Tylenol-Codeine] Penicillins Allergy Skin Rash Unverified 08/09/19 13:38 General Stated Complaint: Abd Prob HAYLEY: 3 Review of Systems All systems reviewed & are unremarkable except as noted in HPI and below Constitutional Constitutional: Reports as per HPI, Denies chills and Denies fever(s) Eyes Eyes: Denies blurry vision ENT Ears, Nose, Mouth, and Throat: Denies dizziness, Denies sore throat and Denies throat swelling Cardiovascular Cardiovascular: Denies chest pain and Denies dyspnea Respiratory Respiratory: Denies cough and Denies dyspnea Gastrointestinal Gastrointestinal: Reports abdominal pain, Reports diarrhea and Denies vomiting Genitourinary Genitourinary: Denies hematuria and Denies dysuria Musculoskeletal Musculoskeletal: Denies back pain and Denies numbness Integumentary/Breasts Skin/Breast: Denies lesions and Denies rash Neurologic Neurologic: Denies dizziness, Denies localized weakness and Denies numbness Allergic/Immunologic Allergic/Immunologic: Denies throat swelling [facility] Medical History (Updated 01/31/20 @ 16:48 by Sylwia Zheng DO) Anxiety (Chronic) Arthritis (Acute) Depression (Chronic) Diabetes mellitus, type 2 (Acute) Surgical History H/O tubal ligation (Chronic) Social History Smoking/Tobacco Use Status: Current every day Tobacco Type: cigarettes Alcohol Intake: never Drug use: Never Substance use type: does not use Do you feel safe at home: Yes Do you feel safe in your relationship?: Yes Exam Const General: cooperative, healthy appearing and no acute distress HENMT Head: normal to inspection Face and sinus: normal facial exam Eyes General: appearance normal, both eyes and all related structures EOM: EOM intact bilaterally Neck Neck: normal visual inspection and No submandibular swelling Lymphatic: no lymphadenopathy noted Chest Chest: normal inspection of the chest and no tenderness Resp Effort & Inspection: normal respiratory effort and able to speak in complete sentences Auscultation: clear to auscultation bilaterally Cardio Rate: regular rate Rhythm: regular rhythm GI Inspection: normal to inspection Palpation: soft, not firm, not rigid and tender in the epigastrum, in the LUQ and in the RUQ Auscultation: normal bowel sounds Skin General skin exam: no rashes or lesions noted Neuro General: patient alert, patient awake and patient oriented x3 Cognition: normal cognition Speech: speech normal Motor: muscle tone normal throughout Sensory Exam: no sensory deficits noted Extrem General: normal to inspection, full ROM, capillary refill normal, no calf tenderness bilaterally and no edema Psych Appearance: grossly normal Mental Status: mental status grossly normal Speech and Movement: speech and movement normal Affect: normal affect Course Vital Signs Vital signs: Vital Signs Temperature 97.7 F 01/31/20 14:27 Pulse 95 H 01/31/20 14:27 Respiratory Rate 16 01/31/20 14:27 Blood Pressure 129/99 H 01/31/20 14:27 Pulse Oximetry 96 01/31/20 14:27 Temperature 97.7 F 01/31/20 14:27 Temperature Source Tympanic 01/31/20 14:27 Pulse 95 H 01/31/20 14:27 Respiratory Rate 16 01/31/20 14:27 Respiratory Effort Non-Labored 01/31/20 14:29 Blood Pressure 129/99 H 01/31/20 14:27 Blood Pressure Position Sitting 01/31/20 14:27 Pulse Oximetry 96 01/31/20 14:27 Oxygen Delivery Method Room Air 01/31/20 14:27 Oxygen Flow Rate 0 01/31/20 14:27 Pain Level 5 01/31/20 14:27
[2020-01-31 15:19] LABS: Abs Immature Grans 0.02 10^3/uL (0.0-0.06); Absolute Lymphocyte Count 1.93 10^3/uL (1.2-3.4); Absolute Monocyte Count 0.53 10^3/uL (0.1-0.8); Absolute Neutrophil Count 5.55 10^3/uL (1.2-6.7); Basophils % 1.1; Eosinophils % 7.9; HCT 37.5 % (36.0-46.0); HGB 12.9 g/dL (11.2-15.7); Immature Grans % 0.2; Lymphocytes % 21.9; MCH 33.5 pg (27.0-33.0); MCHC 34.4 % (32.0-36.0); MCV 97.4 fL (80-95); MPV 9.2 fL (8.0-11.0); Neutrophils % 62.9; Nucleated RBC 0 %; Platelet Count 383 10^3/uL (130-400); RBC 3.85 10^6/uL (3.93-5.22); RDW 12.4 % (11.7-14.6); RDW-SD 44.3 fL; WBC 8.83 10^3/uL (4.4-10.8)
[2020-01-31 15:51] LABS: Lipase 101 U/L (73-393); Magnesium 1.8 mg/dL (1.8-2.4)
[2020-01-31] MEDS: Normal Saline 1,000 ML 1000 ML IV (16:05)
[2020-01-31] MEDS: Ondansetron 4 MG/2 ML VIAL IVP (16:05)
[2020-01-31] MEDS: FAMOTIDINE 20 MG/50 ML BAG 200 MG IVPB (16:06)
[2020-01-31 16:14] LABS: ALT 17 U/L (14-59); AST 11 U/L (15-37); Albumin 3.4 g/dL (3.4-5.0); Alkaline Phosphatase 118 U/L (46-116); Anion Gap 10.9 mmol/L (3-11); BUN 21 mg/dL (7-18); Bilirubin, Total 0.2 mg/dL (0.2-1.0); CO2 22.1 mmol/L (21.0-32.0); CREATININE 0.86 mg/dL (0.55-1.02); Calcium 8.5 mg/dL (8.5-10.1); Chloride 102 mmol/L (98-107); Glucose 132 mg/dL (74-106); Potassium 3.8 mmol/L (3.5-5.1); Sodium 135 mmol/L (136-145); Total Protein 6.9 g/dL (6.4-8.2); Troponin I < 0.05 ng/mL (<0.06)
[2020-01-31 16:22] VITALS: BP 127/90; PULSE 79; RESP 16; O2SAT 100
--- NOTE | 2020-01-31 17:01 | NUR.NOTE ---
Nursing Note: Referral sent to [facility] for follow up faxed. Velia Griffith
== END 2020-01-31 17:05 | disposition home or self-care (01) ==
PROVIDERS: Emergency Provider Physician Assistant; PCP Physician Assistant Medical
DX: K52.89 Other specified noninfective gastroenteritis and colitis (principal); R10.13 Epigastric pain; R11.0 Nausea; E11.9 Type 2 diabetes mellitus without complications; Z79.84 Long term (current) use of oral hypoglycemic drugs
CPT/HCPCS: 36415; 80053; 81025; 83690; 93005; 96361; 96365; 96375; 99285; 74177; 76705; 83735; 84484; 85025; 93010; J2405

== ENCOUNTER 2020-02-06 15:10 | Emergency (ER) | payer MEDICAID, SELFPAY ==
--- NOTE | 2020-02-06 15:00 | RT.EKG_ITS ---
APPROVED REPORT Exam: Resting ECG Patient Location: E HR:100 bpm ECG Measurements Heart Rate 100 AXIS TX 143 P 57 QRSd 91 QRS 5 QT 373 T 46 QTc 480 Conclusion Sinus tachycardia...rate> 99 Probable left atrial enlargement...P >50mS, <-0.10mV V1 Low voltage, precordial leads...precordial leads <1.0mV non-specific ST changes, no STEMI, non-diagnostic EKG
[2020-02-06 15:07] VITALS: BP 135/93; PULSE 100; RESP 20; TEMP 36.5; O2SAT 97
--- NOTE | 2020-02-06 15:15 | DI.CT_ITS ---
EXAM: CT ABDOMEN PELVIS W CLINICAL HISTORY: epigastric abd pain, severe. TECHNIQUE: Imaging Protocol: Axial computed tomography images with coronal and sagittal reformatted images were created and reviewed CONTRAST MATERIAL: Intravenous: Omnipaque 350 Contrast volume:91 cc Oral: no COMPARISON: CT CT ABDOMEN PELVIS W from 01/31/2020 FINDINGS: ABDOMEN: Lung Bases: Mild dependent changes. Liver: Normal density. No measurable mass. Gallbladder and biliary tract: No radiodense calculus or dilation. Pancreas: Normal density, no abnormal calcifications or inflammatory process. Spleen: Normal. Kidneys: Normal size, contour and axis. No radiodense stones or obstructive uropathy. No masses seen. Adrenal glands: No masses seen. Abdominal Aorta: Abdominal portion non-dilated. PELVIS: Bladder: Symmetric distention, no gross wall thickening. Bowel: Some interval improvement of the previously noted wall thickening of the antrum of the stomach . Large quantity of stool. Normal appendix. Peritoneal cavity: No ascites, collection or mesenteric inflammatory response. Bones: Within normal limits. Reproductive organs: Within normal limits. Lymph nodes: Unremarkable. Impression: Some interval improvement in gastric wall thickening. Increased stool. RADIATION DOSE DELIVERED: Total DLP DATA REPOSITORY: All CT scans at this facility are submitted to the National Radiology Data Registry (NRDR) Dose Index Registry (DIR) with the [employer] (A[employer]). RADIATION OPTIMIZATION: All CT scans at this facility use at least one of these dose optimization te chniques: automated exposure control; mA and/or kV adjustment per patient size (includes targeted exa ms where dose is matched to clinical indication); or iterative reconstruction.
--- NOTE | 2020-02-06 15:39 | ED.GENADUL_ITS ---
Discharge Plan Disposition Patient Disposition: HOME Discharge Details Clinical Impression: Epigastric abdominal pain, Gastric wall thickening Primary Care Provider: Aneta Perez ED Provider: Fab Weaver Home Meds and New Rx's Prescriptions: New famotidine [Pepcid] 20 mg tablet 20 mg PO BID Qty: 30 RF: 0 pantoprazole 40 mg tablet,delayed release (DR/EC) 40 mg PO DAILY Qty: 30 RF: 0 Continued metformin 500 mg Tablet 500 mg PO BID RF: 0 clonazepam [Klonopin] 0.5 mg Tablet 0.25 mg PO QHS RF: 0 ipratropium-albuterol 0.5 mg-3 mg(2.5 mg base)/3 mL solution for nebulization 3 ml IH Q6H Qty: 90 RF: 0 clonidine HCl 0.2 mg Tablet 0.2 mg PO QHS RF: 0 lamotrigine [Lamictal] 100 mg Tablet 225 mg PO HS RF: 0 amitriptyline 100 mg Tablet 100 mg PO QHS RF: 0 No Action fluoxetine [Prozac] 20 mg capsule 20 mg PO DAILY RF: 0 sucralfate [Carafate] 1 gram tablet 1 g PO QACHS Qty: 120 RF: 12 Discharge Instructions Instructions: Gastritis (ED), Diet for Stomach Ulcers and Gastritis (ED) Additional Instructions: There is wall thickening of your stomach wall and proximal duodenum with inflammation of the surrounding tissue. Please follow-up with general surgery this week. Call tomorrow to schedule/confirm appointment. Please take medication both Pepcid and pantoprazole as prescribed. Maintain a clear liquid diet today. You may advance to a bland diet tomorrow as tolerated. Please avoid alcoholic beverages, caffeinated beverages, spicy or acidic foods. Please contact your primary care physician to arrange follow-up. Return to the ER for any worsening or new concerning symptoms. Referrals: Aneta Perez [Primary Care Provider] - Micaela Abraham DO [OSTEOPATHIC DOCTOR] - Discharge Data Discharge Date/Time-TO BE ENTERED AT DEPARTURE: 02/06/20 18:35 Medical Decision Making 1540??39-year-old female here with severe epigastric abdominal pain. Was seen here 1 week ago and had negative CT and ultrasound of her abdomen. She was diagnosed with gastritis and does have follow-up scheduled with general surgery for likely endoscopy. She has not been taking PPI or H2 alejandro. Pain is persisting, worse when she sits up. Today she has focal tenderness in her epigastrium with guarding. Turn for gastric ulcer and consider perforation or other acute surgical pathology. Plan to obtain CT of the abdomen pelvis. I will give Pepcid 20 mg IV as well as Protonix 40 mg IV. Patient will be given Dilaudid 1 mg IV for analgesia for severe pain. --Labs reviewed and nondiagnostic. CT of the abdomen pelvis was interpreted by radiology: FINDINGS: Lungs: Mild bibasilar atelectasis. Mediastinal space: Hiatal hernia. Liver: Normal. No mass. Gallbladder and bile ducts: Normal. No calcified stones. No ductal dilation. Pancreas: Normal. No ductal dilation. Spleen: Normal. No splenomegaly. Adrenals: Normal. No mass. Kidneys and ureters: Normal. No hydronephrosis. Stomach and bowel: Food and fluid distended stomach. Large solid stool volume similar to prior study. Similar to prior study January 31 2020 again noted is mild thickening of the gastric wall with infiltration of the perigastric fat of the antrum. Thickening of the proximal duodenum similar to prior study. Mild thickening of the proximal small bowel wall left upper quadrant. Appendix: No evidence of appendicitis. Intraperitoneal space: Unremarkable. No free air. No significant fluid collection. Vasculature: Unremarkable. No abdominal aortic aneurysm. Lymph nodes: Unremarkable. No enlarged lymph nodes. Bladder: Unremarkable as visualized. Reproductive: Unremarkable as visualized. Bones/joints: Partial sacralization of L5 on the left. Soft tissues: Umbilical hernia with omental fat. IMPRESSION: 1. No significant interval change compared with prior study January 31, 2020. Again seen is gastric wall thickening of the distal stomach and proximal duodenum with mild the infiltration of the surrounding mesenteric fat. 2. Constipation with large solid stool volume. 3. Additional findings as discussed above. Patient reassessed and is remained stable. Plan to discharge on Pepcid and Protonix and have her follow-up with surgery as scheduled later this week for likely endoscopy. HPI General Mode of arrival: EMS . Date/Time Provider Initiated Documentation: 02/06/20 15:16 . Limitations to Documentation: no limitations . Information obtained by: EMS . HPI Narrative: 39-year-old female presents with chief complaint of abdominal pain. Patient notes epigastric abdominal pain started over a week ago and has persisted. Pain is severe. Patient notes it feels like a golf ball is being shoved into her epigastric area. Pain is worse sitting up. No associated fever. No shortness of breath. Patient states that she has been somewhat constipated. No bright red blood per rectum or melena. Patient was seen here in the emergency department 1 week ago for same abdominal complaint and had CT of her abdomen pelvis as well as ultrasound of her abdomen and was discharged with concern for gastritis and plan for follow-up for endoscopy. She has been taking Maalox and Tums but is not regularly taking H2 alejandro or PPI. Related Data Home Medications Medication Instructions Recorded Confirmed clonazepam [Klonopin] 0.25 mg PO QHS 08/09/19 02/13/20 ipratropium-albuterol 3 ml IH Q6H #90 ml 08/09/19 02/10/20 metformin 500 mg PO BID 08/09/19 02/13/20 amitriptyline 100 mg PO QHS 11/16/19 02/13/20 clonidine HCl 0.2 mg PO QHS 02/06/20 02/13/20 famotidine [Pepcid] 20 mg PO BID #30 tab 02/06/20 02/13/20 lamotrigine [Lamictal] 225 mg PO HS 02/06/20 02/13/20 pantoprazole 40 mg PO DAILY #30 tab 02/06/20 02/13/20 fluoxetine 20 mg capsule 20 mg PO DAILY 02/10/20 02/13/20 sucralfate 1 gram tablet 1 g PO QACHS #120 tab 02/10/20 02/13/20 Previous Rx's Medication Instructions Recorded ipratropium-albuterol 3 ml IH Q6H #90 ml 08/09/19 famotidine [Pepcid] 20 mg PO BID #30 tab 02/06/20 pantoprazole 40 mg PO DAILY #30 tab 02/06/20 sucralfate 1 gram tablet 1 g PO QACHS #120 tab 02/10/20 Allergies Allergy/AdvReac Type Severity Reaction Status Date / Time amoxicillin Allergy Intermediate rash Unverified 02/13/20 08:21 Penicillins Allergy Skin Rash Unverified 02/13/20 08:21 codeine AdvReac hallucinati Unverified 02/13/20 08:21 [From Tylenol-Codeine] ons General Stated Complaint: Abd Prob HAYLEY: 3 Review of Systems All systems reviewed & are unremarkable except as noted in HPI and below Constitutional Constitutional: Denies fever(s) Gastrointestinal Gastrointestinal: Reports as per HPI, Reports nausea and Denies vomiting PFSH Medical History Acute duodenitis Anxiety Arthritis Chemical gastritis Depression Diabetes mellitus, type 2 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 Intractable nausea and vomiting Postprandial RUQ pain Rheumatoid aortitis Rheumatoid arthritis Smoker Surgical History H/O tubal ligation Social History Smoking/Tobacco Use Status: Current every day Tobacco Type: cigarettes Alcohol Intake: current Drug use: Never Substance use type: does not use Do you feel safe at home: Yes Do you feel safe in your relationship?: Yes Exam Const General: cooperative and no acute distress HENMT Mouth: moist mucous membranes Eyes Conjunctivae: normal conjunctivae Sclera: normal sclerae Neck Neck: trachea midline and supple Resp Auscultation: clear to auscultation bilaterally, no rales, no rhonchi and no wheezes Cardio Jugular venous pressure: no JVD Rate: regular rate and not tachycardic Rhythm: regular rhythm GI Palpation: soft, not firm, guarding other (Epigastric), no masses, not rigid and tender in the epigastrum Auscultation: normal bowel sounds Skin General skin exam: no rashes or lesions noted Neuro General: patient alert, patient awake and tone normal Extrem General: no edema Psych Appearance: grossly normal Mental Status: mental status grossly normal Course Vital Signs Vital signs: Vital Signs Temperature 36.5 C 02/06/20 15:07 Pulse 100 H 02/06/20 15:07 Respiratory Rate 02/06/20 15:07 Blood Pressure 135/93 H 02/06/20 15:07 Pulse Oximetry 97 02/06/20 15:07 Temperature 36.5 C 02/06/20 15:07 Temperature Source Temporal Artery Scan 02/06/20 15:07 Pulse 100 H 02/06/20 15:07 Respiratory Rate 02/06/20 15:07 Respiratory Effort Non-Labored 02/06/20 15:18 Blood Pressure 135/93 H 02/06/20 15:07 Blood Pressure Position Supine 02/06/20 15:07 Pulse Oximetry 97 02/06/20 15:07 Oxygen Delivery Method Room Air 02/06/20 15:07 Oxygen Flow Rate 0 02/06/20 15:07 Pain Level 7 02/06/20 15:07
[2020-02-06 15:49] LABS: Bilirubin Negative (Negative); Blood Negative (Negative); Clarity Clear (Clear); Glucose Negative (Negative); Ketones Negative (Negative); Leukocyte Esterase Negative (Negative); Nitrite Negative (Negative); Specific Gravity 1.015 (1.005-1.025); Urobilinogen 0.2 EU/dL (Up TO 0.2); pH 6.5 (5-8)
[2020-02-06 16:09] LABS: Abs Immature Grans 0.02 10^3/uL (0.0-0.06); Absolute Basophil Count 0.17 10^3/uL (0.0-0.2); Absolute Eosinophil Count 0.74 10^3/uL (0.0-0.7); Absolute Lymphocyte Count 2.43 10^3/uL (1.2-3.4); Absolute Monocyte Count 0.63 10^3/uL (0.1-0.8); Absolute Neutrophil Count 6.24 10^3/uL (1.2-6.7); Basophils % 1.7; Eosinophils % 7.2; HGB 14.3 g/dL (11.2-15.7); Immature Grans % 0.2; Lymphocytes % 23.8; MCH 32.9 pg (27.0-33.0); MCV 96.6 fL (80-95); MPV 9.3 fL (8.0-11.0); Monocytes % 6.2; Neutrophils % 60.9; Nucleated RBC 0 %; Platelet Count 399 10^3/uL (130-400); RBC 4.35 10^6/uL (3.93-5.22); RDW-SD 42.7 fL; WBC 10.23 10^3/uL (4.4-10.8)
[2020-02-06] MEDS: FAMOTIDINE 20 MG/50 ML BAG 200 MG IVPB (16:12)
[2020-02-06] MEDS: Lactated Ringers 1,000 ML 125 ML IV (16:12)
[2020-02-06] MEDS: Pantoprazole 40 MG VIAL IVP (16:12)
[2020-02-06] MEDS: HYDROmorphone 2 MG/ML VIAL 1 MG IVP (16:13)
[2020-02-06 16:22] LABS: ALT 20 U/L (14-59); AST 15 U/L (15-37); Albumin 3.8 g/dL (3.4-5.0); Alkaline Phosphatase 130 U/L (46-116); Anion Gap 9.3 mmol/L (3-11); BUN 11 mg/dL (7-18); Bilirubin, Total 0.2 mg/dL (0.2-1.0); CO2 26.7 mmol/L (21.0-32.0); CREATININE 0.89 mg/dL (0.55-1.02); Calcium 9.4 mg/dL (8.5-10.1); Chloride 97 mmol/L (98-107); Glucose 164 mg/dL (74-106); Lipase 104 U/L (73-393); Potassium 4.2 mmol/L (3.5-5.1); Sodium 133 mmol/L (136-145); Total Protein 7.8 g/dL (6.4-8.2)
[2020-02-06 16:24] LABS: Troponin I < 0.05 ng/mL (<0.06)
[2020-02-06] MEDS: Omnipaque 350 MG/ML 100 ML BTL IJ (16:31)
[2020-02-06] MEDS: Normal Saline Flush 10 ML SYR IVP (16:33)
[2020-02-06] MEDS: Normal Saline - Diluent 50 ML VIAL IV (16:33)
--- NOTE | 2020-02-06 17:39 | DI.VRAD_ITS ---
PROCEDURE INFORMATION: Exam: CT Abdomen And Pelvis With Contrast Exam date and time: 02/06/2020 3:21 PM Age: 39 years old Clinical indication: Abdominal pain TECHNIQUE: Imaging protocol: Computed tomography of the abdomen and pelvis with intravenous contrast. COMPARISON: CT ABDOMEN PELVIS W 06/09/2019 15:42 FINDINGS: Lungs: Mild bibasilar atelectasis. Mediastinal space: Hiatal hernia. Liver: Normal. No mass. Gallbladder and bile ducts: Normal. No calcified stones. No ductal dilation. Pancreas: Normal. No ductal dilation. Spleen: Normal. No splenomegaly. Adrenals: Normal. No mass. Kidneys and ureters: Normal. No hydronephrosis. Stomach and bowel: Food and fluid distended stomach. Large solid stool volume similar to prior study. Similar to prior study January 31 2020 again noted is mild thickening of the gastric wall with infiltration of the perigastric fat of the antrum. Thickening of the proximal duodenum similar to prior study. Mild thickening of the proximal small bowel wall left upper quadrant. Appendix: No evidence of appendicitis. Intraperitoneal space: Unremarkable. No free air. No significant fluid collection. Vasculature: Unremarkable. No abdominal aortic aneurysm. Lymph nodes: Unremarkable. No enlarged lymph nodes. Bladder: Unremarkable as visualized. Reproductive: Unremarkable as visualized. Bones/joints: Partial sacralization of L5 on the left. Soft tissues: Umbilical hernia with omental fat. IMPRESSION: 1. No significant interval change compared with prior study January 31, 2020. Again seen is gastric wall thickening of the distal stomach and proximal duodenum with mild the infiltration of the surrounding mesenteric fat. 2. Constipation with large solid stool volume. 3. Additional findings as discussed above. Dictated and Authenticated by: Jeanine Shine MD. Ordering:LELAND Sanon MD
[2020-02-06 18:28] VITALS: BP 129/82; PULSE 101; RESP 18; TEMP 36.1; O2SAT 98
== END 2020-02-06 18:35 | disposition home or self-care (01) ==
PROVIDERS: Emergency Provider Student in an Organized Health Care Education/Training Program; PCP Physician Assistant Medical
DX: R10.13 Epigastric pain (principal); K31.89 Other diseases of stomach and duodenum; E11.9 Type 2 diabetes mellitus without complications; Z79.84 Long term (current) use of oral hypoglycemic drugs
CPT/HCPCS: 80053; 81025; 83690; 93005; 96361; 96365; 96375; 99285; 74177; 81003; 84484; 85025; 93010; 99284; J3490

== ENCOUNTER 2020-02-10 10:37 | Outpatient (CLI) | payer MEDICAID, SELFPAY ==
[2020-02-11 18:13] LABS: COVID-19 RT-PCR Result NEGATIVE (Negative)
== END 2020-02-10 10:57 ==
PROVIDERS: PCP Physician Assistant Medical; Visit Provider Surgery
DX: Z01.818 Encounter for other preprocedural examination (principal)
CPT/HCPCS: U0003

== ENCOUNTER 2020-02-13 08:14 | Day surgery (SDC) | payer MEDICAID, SELFPAY ==
[2020-02-13 08:25] VITALS: BP 118/88; PULSE 87; RESP 16; TEMP 36.4; O2SAT 99
[2020-02-13] MEDS: Lactated Ringers 1,000 ML 80 ML IV (08:43)
--- NOTE | 2020-02-13 10:56 | STOM_PTH ---
PATIENT: Caryl Hager LOC: [facility] U#:[id number] AGE/SX: 39/F ROOM: RE02/13/[address]: Micaela Abraham : 1980 BED: DIS: 02/13/2020 SPEC #: [id number] RECD: 02/13/20 12:45 STATUS: MAYDA RE #: [id number] HITESH: 02/13/20 10:[address]: Micaela Abraham DEPT: Surgical Specimen RECD BY: Concetta Guevara ENTERED: 02/13/20 12:48 SP TYPE: STOMACH OTHR DR: Aneta Perez Tissues: 1 - BIOPSY BOWEL 2 - STOMACH BIOPSY 3 - STOMACH BIOPSY 4 - STOMACH BIOPSY 5 - ESOPHAGUS BIOPSY 6 - ESOPHAGUS BIOPSY Procedures: GROSS AND MICRO LEVEL 4 IMMUNOPEROXIDASE STAIN Comments: [id number]
--- NOTE | 2020-02-13 11:07 | ENDO_ITS ---
Date of service: 02/13/20 Time of Service: 11:07 Endoscopy Report DATE OF PROCEDURE: 02/13/20 PRE-OP DIAGNOSIS: epigsatric pain POST-OP DIAGNOSIS: other (Duodenitis, gastritis, gastric ulcer) PROCEDURE: EGD with biopsy SURGEON: Micaela Abraham ANESTHESIA: MAC ESTIMATED BLOOD LOSS: 1 PATHOLOGY: other COMPLICATIONS: None DISPOSITION: same day PROCEDURE DESCRIPTION: After informed consent was obtained the patient was take to the procedure room and placed in a supine position. Monitors were applied and a time out was done. The patients name, date of , procedure type, allergies to medications and metal in their body was reviewed. A bite block was placed and the patient was sedated. Once sedated and comfortable the gastroscope was advanced through the oropharynx which was grossly normal into the esophagus. The proximal and mid-esophagus were normal . In the distal esophagus there was nomral noted. There is no esophageal ulcers strictures diverticulum or varices noted. The scope was advanced into the stomach and through the pylorus into the 3rd portion of the duodenum. The duodenum was noted to be severe duodenitis. There are no ulcers. No active or old bleeding.. Biopsies were done. All specimens retrieved and no bleeding is noted. The scope was retracted back into the stomach and biopsies were done to rule out H. pylori. She has severe gastritis in the antrum and distal one third of the stomach. She has a small ulcer on the dependent portion of the stomach/greater curve?3 mm. It has a white eschar on it appears to be in the processes of healing. There is no signs of active bleeding. Biopsies taken of the antrum near the ulcer crater and of the cardia. All specimen is retrieved and no bleeding is noted. The scope was retroflexed. The cardia and fundus were noted to be normal. There no a hiatal hernia noted. The scope was retracted back into the esophagus and biopsies were done of the GE junction to rule out De Jesus's. The scope was removed and the patient was woken up and taken back to [facility] in stable condition. Follow up: 2 wks time
--- NOTE | 2020-02-13 11:11 | W.PM.DSUDISC ---
Discharge Plan Disposition Patient Disposition: HOME Condition: Good Discharge Details Reason For Visit: EPIGASTRIC PAIN + NAUSEA Attending Provider: Micaela Abraham Primary Care Provider: Aneta Perez Home Meds and New Rx's Prescriptions: No Action fluoxetine [Prozac] 20 mg capsule 20 mg PO DAILY RF: 0 sucralfate [Carafate] 1 gram tablet 1 g PO QACHS Qty: 120 RF: 12 metformin 500 mg Tablet 500 mg PO BID RF: 0 clonazepam [Klonopin] 0.5 mg Tablet 0.25 mg PO QHS RF: 0 ipratropium-albuterol 0.5 mg-3 mg(2.5 mg base)/3 mL solution for nebulization 3 ml IH Q6H Qty: 90 RF: 0 clonidine HCl 0.2 mg Tablet 0.2 mg PO QHS RF: 0 lamotrigine [Lamictal] 100 mg Tablet 225 mg PO HS RF: 0 famotidine [Pepcid] 20 mg tablet 20 mg PO BID Qty: 30 RF: 0 pantoprazole 40 mg tablet,delayed release (DR/EC) 40 mg PO DAILY Qty: 30 RF: 0 amitriptyline 100 mg Tablet 100 mg PO QHS RF: 0 Discharge Instructions Additional Instructions: Findings: Duodenitis, gastritis, gastric ulcer -stop smoking -no ASA/NSAID's -Continue with lifestyle modifications: no alcohol, tobacco products, Aspirin or NSAID's (ibuprofen, Motrin, Naprosyn, aleve, etc), soda pop/any carbonated beverages, caffeine (including tea & chocolate), and acidic foods, (tomatoes, citrus, onions, peppermints) spicy or fried/fatty foods. Do not lie down for 30 minutes after eating, and do not eat 2 hours prior to bedtime. Avoid wearing tight fitting clothing/ belts Follow up: 2 weeks Please call if you develop: fevers >101.5 Nausea or Vomiting Abdominal pain that is not transient DAY SURGERY UNIT POST COLONOSCOPY INSTRUCTIONS 1. Because there will be medication in your system for the next 24 hours, you may feel a little sleepy. Your coordination will be affected. Therefore: a. Do not drive or operate dangerous equipment for 24 hours. b. Do not drink alcohol beverages for 24 hours (not even beer). c. Plan to go home and rest for the day. 2. Generally there are no restrictions on your activity after a day or so has gone by, but you may feel a bit fatigued for a few days. 3 After you arrive home you may have a light meal and return to a normal diet as you can tolerate it without feeling sick to your stomach. 4. After surgery, you may feel pain or discomfort. This should be only transient, but if it persists please contact your doctor. 5. If there are any questions regarding the findings of your procedure, please feel free to contact your doctor. 6. If you are unable to contact your doctor with a problem, contact the hospital at [phone]. 7. Continue all your regular medications unless directed otherwise. I understand the above instructions and have no questions. 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
[2020-02-13 11:45] VITALS: BP 120/94; PULSE 74; RESP 16; TEMP 36; O2SAT 98
[2020-02-13] MEDS: Sucralfate 1 GM TAB PO (12:25)
[2020-02-13] MEDS: Normal Saline Flush 10 ML SYR IV (12:25)
[2020-02-13] MEDS: Pantoprazole 40 MG VIAL IVP (12:25)
== END 2020-02-13 12:45 | disposition home or self-care (01) ==
PROVIDERS: PCP Physician Assistant Medical; Visit Provider Surgery
PROC: 0DJ68ZZ Inspection of Stomach, Via Natural or Artificial Opening Endoscopic (ICD-10-PCS; CPT 43235; principal; 2020-02-13 09:00)
DX: K29.60 Other gastritis without bleeding (principal); F17.210 Nicotine dependence, cigarettes, uncomplicated; R11.2 Nausea with vomiting, unspecified; R10.13 Epigastric pain; K29.80 Duodenitis without bleeding; K25.9 Gastric ulcer, unspecified as acute or chronic, without hemorrhage or perforation
CPT/HCPCS: 43239; 81025; 88305; 88361; J2001

== ENCOUNTER 2020-07-31 11:27 | Emergency (ER) | payer MEDICAID, SELFPAY ==
--- NOTE | 2020-07-31 11:23 | ED.GENADUL_ITS ---
Discharge Plan Disposition Patient Disposition: HOME Condition: Stable Discharge Details Clinical Impression: Chronic pain, Depression, Hx of rheumatoid arthritis, Difficulty coping with pain Primary Care Provider: Aneta Perez ED Provider: Sylwia Zheng Home Meds and New Rx's Prescriptions: New tramadol 50 mg tablet 50 mg PO TID PRN (Reason: pain) Qty: 7 RF: 0 Continued sucralfate [Carafate] 1 gram tablet 1 g PO QACHS Qty: 120 RF: 12 pantoprazole 40 mg tablet,delayed release (DR/EC) 40 mg PO DAILY Qty: 30 RF: 12 metformin 500 mg Tablet 500 mg PO BID RF: 0 clonazepam [Klonopin] 0.5 mg Tablet 0.25 mg PO QHS RF: 0 ipratropium-albuterol 0.5 mg-3 mg(2.5 mg base)/3 mL solution for nebulization 3 ml IH Q6H Qty: 90 RF: 0 clonidine HCl 0.2 mg Tablet 0.2 mg PO QHS RF: 0 lamotrigine [Lamictal] 100 mg Tablet 200 mg PO HS RF: 0 amitriptyline 100 mg Tablet 100 mg PO QHS RF: 0 trazodone 100 mg Tablet 200 mg PO QHS RF: 0 Discharge Instructions Instructions: Chronic Pain (ED), Depression (ED) Additional Instructions: Call your primary care doctor and nurse practitioner today to schedule a follow- up appointment for reevaluation. You will receive a call from [facility] [employer] regarding a follow-up appointment. You are given 2 tabs of tramadol to go, take these as needed and directed for pain. Do not take more than 4000 mg of Tylenol daily. That means do not take more than 2 tabs of 500 mg extra strength tylenol every 6 hours in a 24-hour period. Follow-up with pain management for further evaluation of your chronic pain. Return immediately to the emergency department if you develop any worsening or new concerning symptoms. Discharge Data Discharge Date/Time-TO BE ENTERED AT DEPARTURE: 07/31/20 15:08 Discharge Physician: Sylwia Zheng Medical Decision Making 39-year-old female with a history of rheumatoid arthritis with chronic pain in her bilateral hands knees and back, depression, gastric ulcer secondary to long- term NSAID use, previous suicide attempt in May who presents for feeling like she is better off due to her chronic pain and need for continual surgery for her rheumatoid arthritis. Vitals within normal limits. Left hand flexor tendon contracted but no evidence of cellulitis or trauma. Knees normal to inspection bilaterally. Back normal to inspection. Patient had resistance to getting into paper close. She also threatened to leave. She states she does not want a change because she is cold. She eventually got into a gown with warm blankets. CPSO outside of room to monitor pt. Case discussed with mental health who will evaluate at bedside. We will check screening labs in addition to Tylenol level due to her long-term overuse of Tylenol. Labs reviewed. Alcohol level negative. Normal acetaminophen level. Salicylate level 5.1, has been 6.4 and 6.5 in October 2019, do not see any aspirin or salicylate derivatives on her list but as this is decreased and with normal renal function, no acute recommendations at this time. Case discussed with mental health who cleared patient for discharge. They found that patient was appropriate and is not currently suicidal. Patient had expressed frustration with her pain in addition to her phone not working today. She agrees she has no coping skills. Plan will be for [facility] human services to set up follow-up appointment. I also called patient's flight readiness technician at [facility] Dr. Lee and he agreed with plan for a prescription for tramadol and will follow up with her for reevaluation and additional pain medication. Patient placed on care management's list to help arrange for a follow-up appointment with pain management. Medical Records Medical records reviewed: Yes I reviewed the patient's medical records. Lab Data Lab results reviewed: Yes I reviewed the patient's lab results. Labs: Laboratory Tests Range/Units 07/31/20 07/31/20 07/31/20 12:00 12:55 12:55 WBC (4.4-10.8) 10^3/uL RBC (3.93-5.22) 10^6/uL Hgb (11.2-15.7) g/dL Hct (36.0-46.0) % MCV (80-95) fL MCH (27.0-33.0) pg MCHC (32.0-36.0) % RDW (11.7-14.6) % Plt Count (130-400) 10^3/uL MPV (8.0-11.0) fL Immature Gran % Neutrophils % Lymphocytes % Monocytes % Eosinophils % Basophils % Nucleated RBC % % Absolute Neutrophils (1.2-6.7) 10^3/uL Absolute Lymphocytes (1.2-3.4) 10^3/uL Absolute Monocytes (0.1-0.8) 10^3/uL Absolute Eosinophils (0.0-0.7) 10^3/uL Absolute Basophils (0.0-0.2) 10^3/uL Sodium (136-145) mmol/L 136 Potassium (3.5-5.1) mmol/L 4.0 Chloride (98-107) mmol/L 100 Carbon Dioxide (21.0-32.0) mmol/L 25.4 Anion Gap (3-11) mmol/L 10.6 BUN (7-18) mg/dL 10 Creatinine (0.55-1.02) mg/dL 0.8 Estimated GFR/1.73 m2 (mL/min/1.73m2) >= 60.00 Glucose (74-106) mg/dL 133 H Calcium (8.5-10.1) mg/dL 8.5 Total Bilirubin (0.2-1.0) mg/dL 0.3 AST (15-37) U/L 9 L ALT (14-59) U/L 18 Alkaline Phosphatase (46-116) U/L 112 Total Protein (6.4-8.2) g/dL 7.5 Albumin (3.4-5.0) g/dL 3.5 Salicylates (<2.8) mg/dL 5.1 Urine Opiates Screen (Negative) Negative Urine Methadone Screen (Negative) Negative Acetaminophen (10-30) ug/mL < 2 Ur Barbiturates Screen (Negative) Negative Ur Tricyclics Screen (Negative) Positive A Ur Amphetamines Screen (Negative) Negative U Benzodiazepines Scrn (Negative) Negative Urine Cocaine Screen (Negative) Negative Ur THC Screen (Negative) Negative Ethyl Alcohol (<3) mg/dL < 3.0 Range/Units 07/31/20 12:55 WBC (4.4-10.8) 10^3/uL 11.23 H RBC (3.93-5.22) 10^6/uL 4.04 Hgb (11.2-15.7) g/dL 13.0 Hct (36.0-46.0) % 38.2 MCV (80-95) fL 94.6 MCH (27.0-33.0) pg 32.2 MCHC (32.0-36.0) % 34.0 RDW (11.7-14.6) % 11.7 Plt Count (130-400) 10^3/uL 364 MPV (8.0-11.0) fL 9.0 Immature Gran % 0.3 Neutrophils % 65.1 Lymphocytes % 22.4 Monocytes % 5.1 Eosinophils % 6.1 Basophils % 1.0 Nucleated RBC % % 0 Absolute Neutrophils (1.2-6.7) 10^3/uL 7.31 H Absolute Lymphocytes (1.2-3.4) 10^3/uL 2.52 Absolute Monocytes (0.1-0.8) 10^3/uL 0.57 Absolute Eosinophils (0.0-0.7) 10^3/uL 0.69 Absolute Basophils (0.0-0.2) 10^3/uL 0.11 Sodium (136-145) mmol/L Potassium (3.5-5.1) mmol/L Chloride (98-107) mmol/L Carbon Dioxide (21.0-32.0) mmol/L Anion Gap (3-11) mmol/L BUN (7-18) mg/dL Creatinine (0.55-1.02) mg/dL Estimated GFR/1.73 m2 (mL/min/1.73m2) Glucose (74-106) mg/dL Calcium (8.5-10.1) mg/dL Total Bilirubin (0.2-1.0) mg/dL AST (15-37) U/L ALT (14-59) U/L Alkaline Phosphatase (46-116) U/L Total Protein (6.4-8.2) g/dL Albumin (3.4-5.0) g/dL Salicylates (<2.8) mg/dL Urine Opiates Screen (Negative) Urine Methadone Screen (Negative) Acetaminophen (10-30) ug/mL Ur Barbiturates Screen (Negative) Ur Tricyclics Screen (Negative) Ur Amphetamines Screen (Negative) U Benzodiazepines Scrn (Negative) Urine Cocaine Screen (Negative) Ur THC Screen (Negative) Ethyl Alcohol (<3) mg/dL HPI General Mode of arrival: EMS . Date/Time Provider Initiated Documentation: 07/31/20 11:32 . Limitations to Documentation: no limitations . Information obtained by: patient . HPI Narrative: Patient is a 39-year-old female with a history of rheumatoid arthritis and chronic bilateral hand, bilateral knee and back pain, diabetes, depression, gastric ulcer secondary to long-term NSAID use, multiple hand surgeries secondary to her rheumatoid arthritis who presents for feeling I am better off due to her chronic pain associated with her rheumatoid arthritis. Patient states he was diagnosed with rheumatoid arthritis 4 years ago and has had continual pain since then. She states she is about to have her 6 surgery on her left hand soon and is tired of the pain. She states she has been on oxycodone or percocet but this was stopped in March. She states she saw her primary care doctor a week ago and he referred her to pain management but she has not seen them yet. She states she has been on naproxen but developed a gastric ulcer due to this. She states he has been taking 2000 mg of Tylenol 3-4 times daily for the past 8 months. She denies taking any Tylenol today. She denies any alcohol or drug use. She states she does not feel actively suicidal but feels that she is better off due to the pain. She states she feels she cannot go on if this pain continues. She became so frustrated with the pain today that she started breaking little Knick Knacks on her phone today at home when she began throwing them. She states her daughter became concerned and called 911. She denies any homicidal ideation. She denies any visual or auditory hallucinations. Related Data Home Medications Medication Instructions Recorded Confirmed clonazepam [Klonopin] 0.25 mg PO QHS 08/09/19 07/31/20 ipratropium-albuterol 3 ml IH Q6H #90 ml 08/09/19 07/31/20 metformin 500 mg PO BID 08/09/19 07/31/20 amitriptyline 100 mg PO QHS 11/16/19 07/31/20 clonidine HCl 0.2 mg PO QHS 02/06/20 07/31/20 lamotrigine [Lamictal] 200 mg PO HS 02/06/20 07/31/20 sucralfate 1 gram tablet 1 g PO QACHS #120 tab 02/10/20 07/31/20 pantoprazole 40 mg tablet,delayed 40 mg PO DAILY #30 tab 02/29/20 07/31/20 release tramadol 50 mg PO TID PRN #7 tab 07/31/20 trazodone 200 mg PO QHS 07/31/20 07/31/20 Previous Rx's Medication Instructions Recorded ipratropium-albuterol 3 ml IH Q6H #90 ml 08/09/19 sucralfate 1 gram tablet 1 g PO QACHS #120 tab 02/10/20 pantoprazole 40 mg tablet,delayed 40 mg PO DAILY #30 tab 02/29/20 release tramadol 50 mg PO TID PRN #7 tab 07/31/20 Allergies Allergy/AdvReac Type Severity Reaction Status Date / Time amoxicillin Allergy Intermediate rash Unverified 07/31/20 11:40 Penicillins Allergy Skin Rash Unverified 07/31/20 11:40 naproxen AdvReac Intermediate That's Verified 07/31/20 11:40 how I ended up with an ulcer codeine AdvReac hallucinati Unverified 07/31/20 11:40 [From Tylenol-Codeine] ons General HAYLEY: 3 Review of Systems All systems reviewed & are unremarkable except as noted in HPI and below Constitutional Constitutional: Reports as per HPI, Denies chills and Denies fever(s) Eyes Eyes: Denies blurry vision ENT Ears, Nose, Mouth, and Throat: Denies dizziness, Denies sore throat and Denies throat swelling Cardiovascular Cardiovascular: Denies chest pain and Denies dyspnea Respiratory Respiratory: Denies cough and Denies dyspnea Gastrointestinal Gastrointestinal: Denies abdominal pain, Denies diarrhea and Denies vomiting Genitourinary Genitourinary: Denies hematuria and Denies dysuria Musculoskeletal Musculoskeletal: Reports back pain, Denies numbness and Reports other (b/l hand pain, b/l knee pain) Integumentary/Breasts Skin/Breast: Denies lesions and Denies rash Neurologic Neurologic: Denies dizziness, Denies localized weakness and Denies numbness Allergic/Immunologic Allergic/Immunologic: Denies throat swelling PFSH Medical History Acute duodenitis Anxiety Arthritis Chemical gastritis Depression Diabetes mellitus, type 2 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 Intractable nausea and vomiting Postprandial RUQ pain Rheumatoid aortitis Rheumatoid arthritis Smoker Surgical History (Updated 04/12/20 @ 10:08 by Kamilla Schulz RN) H/O tubal ligation History of esophagogastroduodenoscopy (EGD) (~02/13/20) Social History Smoking/Tobacco Use Status: Current every day Tobacco Type: cigarettes Smoking risk assessment performed?: Yes Alcohol Intake: never Drug use: Never Substance use type: does not use Do you feel safe at home: Yes Do you feel safe in your relationship?: Yes Exam Const General: cooperative, healthy appearing and no acute distress HENMT Head: normal to inspection Face and sinus: normal facial exam Eyes General: appearance normal, both eyes and all related structures EOM: EOM intact bilaterally Neck Neck: normal visual inspection and No submandibular swelling Lymphatic: no lymphadenopathy noted Chest Chest: normal inspection of the chest and no tenderness Resp Effort & Inspection: normal respiratory effort and able to speak in complete sentences Auscultation: clear to auscultation bilaterally Cardio Rate: regular rate Rhythm: regular rhythm GI Inspection: normal to inspection Palpation: soft, not firm, not rigid and nontender Auscultation: normal bowel sounds Back/Spine/Pelvis Thoracic/Lumbar Spine: thoracic and lumbar spine normal to inspection Pelvis: no pain with anterior-posterior compression Skin General skin exam: no rashes or lesions noted Neuro General: patient alert, patient awake and patient oriented x3 Cognition: normal cognition Speech: speech normal Motor: muscle tone normal throughout Sensory Exam: no sensory deficits noted Extrem General: capillary refill normal Other: Contracted flexor tendon L 2nd volar finger. No erythema, edema, ecchymosis, crepitus. Bilateral knees normal to inspection without erythema, edema, ecchymosis, with normal range of motion. Psych Appearance: grossly normal Mental Status: mental status grossly normal Speech and Movement: speech and movement normal Affect: normal affect
[2020-07-31 11:33] VITALS: BP 117/87; PULSE 99; RESP 16; TEMP 36.8; O2SAT 99
--- NOTE | 2020-07-31 12:06 | CMSP_ITS ---
- If Service Date Differs Date of service: 07/31/20 Time of Service: 12:06 Care Management Safety Plan Status: Voluntary DISPOSITION: Muriel is assessed via zoom by [facility] crisis screener. She is able to enter in a safety plan, so she is being discharged home. She will follow up outpatient with [facility], her PCP, and the Pain Clinic. Chief Complaint: Muriel is a 39 year old female who presents to the ED via EMS. Per RN note, family called EMS because Muriel was making suicidal statements, destroying things in the home, and throwing herself around. Muriel reportedly has Rheumatoid Arthritis and is frustrated with the ongoing pain and her inability to find relief. Per patient, the naproxen she was prescribed for pain was recently discontinued, as it caused a gastric ulcer. She additionally was prescribed either oxycodone or percocet but the pain medication was discontinued in March by the provider. CM will respond to ED to assess patient after patient has been medically cleared and assessed by screener. If screener deems patient meets criteria for psychiatric stabilization CM will facilitate interdepartmental huddle with [facility] screener for safety planning considerations and meet with patient to review [facility] policy and safety plan, establish individual wishes for treatment and maintain patient rights. In the interim; please note safety plan below to guide patient care while awaiting further assessment in the ED. SAFETY PLAN: 1. Will remain on suicide precautions and in paper clothes. 2. Will remain in room under direct supervision of one-on-one staff at all times provided by [employer], RISK CONSULTING TREASURY DIRECTOR, GRAIN ELEVATOR MOTOR STARTER disc recordist. 3. May have paper cups, plates, finger foods as well as a cardboard spoon with which to eat meals. 4. Follow [facility] Management of the Admitted Behavioral Health Patient policy. 5. Comfort bath system only. 6. No personal belongings 7. No visitors. 8. Phone use at nursing discretion. 9. Due to VOLUNTARY status, if patient wishes to leave [facility], staff will contact [facility] Crisis Screener ([phone]) and On-Call [employer] Production Liaison ([phone]) as soon as possible. In the event of elopement, notify [facility] Police ([phone]). If deemed appropriate for inpatient psychiatric care, safety plan will be established with patient, and care team, to adhere to patient goals, identify restrictions based on behavioral status, address nutrition, and determine allowed personal belongings, tools for hygiene and personal care. As well plan will determine level of activity including ambulation, level of supervision, visitors, and determine privileges based on level of acuity, behaviors and level of engagement by patient.
[2020-07-31 12:39] LABS: *AMPHETAMINES SCREEN URINE Negative (Negative); *BARBITURATES SCREEN URINE Negative (Negative); *BENZODIAZEPINES SCREEN URINE Negative (Negative); Cannabinoids THC Negative (Negative); Cocaine Screen,Urine Negative (Negative); METHADONE URINE SCREEN Negative (Negative); OPIATES URINE SCREEN Negative (Negative)
[2020-07-31 12:44] LABS: Tricyclic Antidepressants POSITIVE (Negative)
[2020-07-31 12:58] LABS: Abs Immature Grans 0.03 10^3/uL (0.0-0.06); Absolute Basophil Count 0.11 10^3/uL (0.0-0.2); Absolute Eosinophil Count 0.69 10^3/uL (0.0-0.7); Absolute Monocyte Count 0.57 10^3/uL (0.1-0.8); Eosinophils % 6.1; HCT 38.2 % (36.0-46.0); Immature Grans % 0.3; Lymphocytes % 22.4; MCH 32.2 pg (27.0-33.0); MCV 94.6 fL (80-95); Monocytes % 5.1; Neutrophils % 65.1; Nucleated RBC 0 %; Platelet Count 364 10^3/uL (130-400); RBC 4.04 10^6/uL (3.93-5.22); RDW 11.7 % (11.7-14.6); RDW-SD 40.6 fL; WBC 11.23 10^3/uL (4.4-10.8)
[2020-07-31 13:03] LABS: Absolute Lymphocyte Count 2.52 10^3/uL (1.2-3.4); Absolute Neutrophil Count 7.31 10^3/uL (1.2-6.7)
[2020-07-31 13:09] LABS: ALT 18 U/L (14-59); AST 9 U/L (15-37); Albumin 3.5 g/dL (3.4-5.0); Alkaline Phosphatase 112 U/L (46-116); Anion Gap 10.6 mmol/L (3-11); BUN 10 mg/dL (7-18); Bilirubin, Total 0.3 mg/dL (0.2-1.0); CO2 25.4 mmol/L (21.0-32.0); CREATININE 0.8 mg/dL (0.55-1.02); Calcium 8.5 mg/dL (8.5-10.1); Chloride 100 mmol/L (98-107); Glucose 133 mg/dL (74-106); Sodium 136 mmol/L (136-145); Total Protein 7.5 g/dL (6.4-8.2)
[2020-07-31 13:17] LABS: ETHANOL BLOOD < 3.0 mg/dL (<3)
[2020-07-31 13:26] LABS: Acetaminophen < 2 ug/mL (10-30); Salicylate 5.1 mg/dL (<2.8)
[2020-07-31] MEDS: traMADol 50 MG TAB PO (14:30)
--- NOTE | 2020-07-31 14:54 | PDOC.MHCN ---
Date of service: 07/31/20 Time of Service: 14:55 Mental Health Crisis Note Presenting Issue How did you arrive at the ED and why did you come: Pt arrived via ambulance after her boyfriend called because she was flipping out. Precipitating Factors Pt denied SI and HI. She is not showing any signs of delusions. Disposition BEHAVIOR: Pt is cooperative but anxious that she is going to be held involuntarily. EYE CONTACT: Pt makes eye contact but does so with looking down at the screen as she lays in bed. MOOD: Pt is anxious and depressed. She reports she has anger issues because of the physical pain she is in. AFFECT: Her affect is hard to family advocate based on how she is holding the screen. APPETITE: Pt reports her appetite is good. SLEEP(trouble falling/staying asleep: Pt reported her sleep is poor. Plan Pt engaged in a proactive plan for safety, noted to be as follows: Pt reported that she knows she is in crisis when she gets angry, has jumbled thoughts and shuts down. She handles these crisis' by having angry outbursts. Pt identified her daughter as her natural support and her professional ones are her therapist and psychiatrist in [place]. She cancelled her follow up appointments for them this morning when she got angry. She also identified her primary care doctor as a professional support as well as her plastic surgeon who is planning on her 4th surgery on her hand to repair damage. She reported that she has not self-care skills/activities initially then said she does play games on her phone. She identified my kids as one thing worth living for. Pt agrees to re-schedule her appointments she cancelled this morning. She will talk with the ER doctor about her questions regarding medications she is already on and if they contribute to anger. She was informed that [facility] has a 24/7 crisis line and if she feels she is struggling or in crisis she can outreach to [facility] at [phone] for support and guidance. She will follow up with her primary care doctor about when she is going to get in with the pain clinic. Dr. Zheng the ER doctor serving the Pt today is outreaching to her primary doctor to see if there is any medication changes that could be made to give the Pt some relief from her pain. Signature Clinician's Name/Title: Nidhi Lawton MS, [facility] Emergency Services Clinician
--- NOTE | 2020-07-31 16:38 | NUR.NOTE ---
Nursing Note: Referral to Care Management to assist pt to get an appt with pain clinic. Velia Griffith
--- NOTE | 2020-08-20 18:23 | PDOC.ERCMACT ---
- If Service Date Differs Date of service: 08/02/20 Time of Service: 18:23 Care Management Activity Note CM receives a request from ED provider to assist patient in obtaining an appointment with the pain clinic. CM telephones Muriel to offer assistance but patient is on her way to an appointment and cannot talk. CM provides her with contact information and requests that she call me at a time that is more convenient for her.
== END 2020-07-31 15:08 | disposition home or self-care (01) ==
LOC: ER 14:53
PROVIDERS: Emergency Provider Physician Assistant; PCP Physician Assistant Medical
DX: F43.23 Adjustment disorder with mixed anxiety and depressed mood (principal); M06.89 Other specified rheumatoid arthritis, multiple sites; G89.29 Other chronic pain
CPT/HCPCS: 36415; 80053; 80307; 81025; 99283; 80320; 80329; 85025

== ENCOUNTER 2020-08-02 22:11 | Emergency (ER) | payer MEDICAID, SELFPAY ==
[2020-08-02 22:15] VITALS: BP 109/82; PULSE 107; RESP 16; TEMP 36.1; O2SAT 96
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
== END 2020-08-02 23:03 | disposition home or self-care (01) ==
PROVIDERS: Emergency Provider Student in an Organized Health Care Education/Training Program; PCP Physician Assistant Medical
DX: F41.8 Other specified anxiety disorders (principal)
CPT/HCPCS: 99285; 99283

== ENCOUNTER 2020-08-23 09:14 | Outpatient (CLI) | payer MEDICAID, SELFPAY ==
[2020-08-23 10:04] LABS: Source Nasal/Nares
[2020-08-23 14:32] LABS: COVID-19 PCR Negative (Negative)
== END 2020-08-23 09:15 | disposition home or self-care (01) ==
PROVIDERS: PCP Physician Assistant Medical; Visit Provider Surgery
DX: Z20.822 Contact with and (suspected) exposure to COVID-19 (principal); Z01.818 Encounter for other preprocedural examination
CPT/HCPCS: 87635

== ENCOUNTER 2020-08-24 06:11 | Day surgery (SDC) | payer MEDICAID, SELFPAY ==
[2020-08-24 06:34] VITALS: BP 107/77; PULSE 97; RESP 16; TEMP 36.6; O2SAT 95
[2020-08-24] MEDS: Lactated Ringers 1,000 ML 80 ML IV (07:16)
--- NOTE | 2020-08-24 07:39 | STOM_PTH ---
PATIENT: Caryl Hager LOC: [facility] U#:[id number] AGE/SX: 39/F ROOM: RE08/24/[address]: Micaela Abraham : 1980 BED: DIS: 08/24/2020 SPEC #: [id number] RECD: 08/24/20 12:33 STATUS: MAYDA RE #: [id number] HITESH: 08/24/20 07:[address]: Micaela Abraham DEPT: Surgical Specimen RECD BY: Concetta Guevara ENTERED: 08/24/20 12:34 SP TYPE: STOMACH OTHR DR: Aneta Perez Tissues: 1 - BIOPSY BOWEL 2 - STOMACH BIOPSY 3 - STOMACH BIOPSY 4 - ESOPHAGUS BIOPSY Procedures: GROSS AND MICRO LEVEL 4 Comments: [id number]
--- NOTE | 2020-08-24 07:53 | W.PM.ENDDOP ---
Date of service: 08/24/20 Time of Service: 07:53 Endoscopy Report DATE OF PROCEDURE: 08/24/20 PRE-OP DIAGNOSIS: hx of duodenal ulcer POST-OP DIAGNOSIS: other (hiatal hernia/schatzkis ring ) SURGEON: Micaela Abraham ANESTHESIA TYPE: General:No Airway ESTIMATED BLOOD LOSS: 1 PATHOLOGY: other COMPLICATIONS: None DISPOSITION: same day PROCEDURE DESCRIPTION: After informed consent was obtained the patient was take to the procedure room and placed in a supine position. Monitors were applied and a time out was done. The patients name, date of , procedure type, allergies to medications and metal in their body was reviewed. A bite block was placed and the patient was sedated. Once sedated and comfortable the gastroscope was advanced through the oropharynx which was grossly normal into the esophagus. The proximal and mid-esophagus were nl. In the distal esophagus there was: No esophageal erosions varices, diverticula, or strictures apparent. She does have a small hiatal hernia. She does have a Schatzki's ring but it is not causing any obstruction/stenosis. Gastric mucosa is pink and healthy. There is no polyps. There is no gastritis. There is no ulcers. There is no mass.. The scope was advanced into the stomach and through the pylorus into the 3rd portion of the duodenum. The duodenum was noted to be nl. Biopsies were done-all specimens are retrieved and no bleeding is noted.. The scope was retracted back into the stomach and biopsies were done to rule out H. pylori. The scope was retroflexed. The cardia and fundus were noted to be normal. There is a small a hiatal hernia noted. The scope was retracted back into the esophagus and biopsies were done of the GE junction to rule out De Jesus's. The Z line was regular. The scope was removed and the patient was woken up and taken back to [facility] in stable condition. Follow up:
--- NOTE | 2020-08-24 07:55 | W.PM.DSUDISC ---
Discharge Plan Disposition Patient Disposition: HOME Condition: Good Discharge Details Reason For Visit: stomach scope Attending Provider: Micaela Abraham Primary Care Provider: Aneta Perez Home Meds and New Rx's Prescriptions: No Action sucralfate [Carafate] 1 gram tablet 1 g PO QACHS Qty: 120 RF: 12 pantoprazole 40 mg tablet,delayed release (DR/EC) 40 mg PO DAILY Qty: 30 RF: 12 metformin 500 mg Tablet 1,000 mg PO BID RF: 0 ipratropium-albuterol 0.5 mg-3 mg(2.5 mg base)/3 mL solution for nebulization 3 ml IH Q6H Qty: 90 RF: 0 clonidine HCl 0.2 mg Tablet 0.1 mg PO QHS RF: 0 lamotrigine [Lamictal] 100 mg Tablet 100 mg PO BID RF: 0 venlafaxine 75 mg Capsule,Extended Release 24hr 75 mg PO DAILY RF: 0 atorvastatin 20 mg Tablet 20 mg PO DAILY RF: 0 clonazepam 1 mg tablet 1 mg PO BID PRN (Reason: Anxiety) RF: 0 ondansetron 4 mg Tablet,Disintegrating 4 mg PO PRN PRNRF: 0 benzocaine-allantoin 20 % Gel 1 applic MUCOUS MEMBRANE QID PRNRF: 0 amitriptyline 100 mg Tablet 150 mg PO QHS RF: 0 trazodone 100 mg Tablet 200 mg PO QHS RF: 0 tramadol 50 mg tablet 50 mg PO TID PRN (Reason: pain) Qty: 7 RF: 0 Discharge Instructions Additional Instructions: Findings:small hiatal hernia. No active ulcers or bleeding Follow up: will send a copy of the biopsy in 2-3 weeks Please call if you develop: fevers >101.5 Nausea or Vomiting Abdominal pain that is not transient DAY SURGERY UNIT POST EGD INSTRUCTIONS 1. Because there will be medication in your system for the next 24 hours, you may feel a little sleepy. Your coordination will be affected. Therefore: a. Do not drive or operate dangerous equipment for 24 hours. b. Do not drink alcohol beverages for 24 hours (not even beer). c. Plan to go home and rest for the day. 2. Generally there are no restrictions on your activity after a day or so has gone by, but you may feel a bit fatigued for a few days. 3 After you arrive home you may have a light meal and return to a normal diet as you can tolerate it without feeling sick to your stomach. 4. After surgery, you may feel pain or discomfort. This should be only transient, but if it persists please contact your doctor. 5. If there are any questions regarding the findings of your procedure, please feel free to contact your doctor. 6. If you are unable to contact your doctor with a problem, contact the hospital at [phone]. 7. Continue all your regular medications unless directed otherwise. I understand the above instructions and have no questions. Signature of Patient or Responsible Adult Escort Date/Time Name of Responsible Adult Escort Signature of Nurse Date/Time Activity:: No strenuous activity or heavy lifting x24 hours Diet:: Small light meals x24 hours. 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
[2020-08-24 08:22] VITALS: BP 86/51; PULSE 82; RESP 16; TEMP 36.9; O2SAT 96
== END 2020-08-24 08:43 | disposition home or self-care (01) ==
PROVIDERS: PCP Physician Assistant Medical; Visit Provider Surgery
PROC: 0DJ68ZZ Inspection of Stomach, Via Natural or Artificial Opening Endoscopic (ICD-10-PCS; CPT 43235; principal; 2020-08-24 07:30)
DX: Z87.19 Personal history of other diseases of the digestive system (principal); K44.9 Diaphragmatic hernia without obstruction or gangrene; K22.2 Esophageal obstruction; K31.89 Other diseases of stomach and duodenum
CPT/HCPCS: 43239; 81025; 88305; J2001

== ENCOUNTER 2020-09-05 01:41 | Outpatient (CLI) | payer OTHER, MEDICAID, SELFPAY ==
--- NOTE | 2020-09-05 | DI.RAD_ITS ---
EXAM: XR LUMBAR SPINE AP, LAT CLINICAL HISTORY: DISABILITY DETERMINATION, LOW BACK PAIN, ARTHRITIS. TECHNIQUE: 2D digital imaging was performed. COMPARISON: CT CT ABDOMEN PELVIS W from 02/06/[address] ABDOMEN PELVIS W from 02/06/2020 FINDINGS: BONES: There is a transitional type vertebral body at the lumbosacral junction. There is sacralizati on of the L5 transverse processes. There is sclerosis at the articulation between the left transvers e process and the sacrum. No fracture or destructive lesion. Vertebral bodies are unremarkable. No f acet hypertrophy identified. Mild degenerative changes are visible in SI joints. DISKS: Intervertebral disc spaces are maintained. ALIGNMENT: Lumbar spinal alignment is within normal limits. SOFT TISSUE: Normal. IMPRESSION: Partial sacralization of L5 with degenerative changes present between the left L5 transverse process and sacrum. DATA REPOSITORY: RADIATION DOSE DELIVERED:
== END 2020-09-05 02:01 ==
PROVIDERS: PCP Physician Assistant Medical; Visit Provider Pediatrics Pediatric Rheumatology
DX: M54.5 Low back pain (principal); M53.3 Sacrococcygeal disorders, not elsewhere classified; Z02.71 Encounter for disability determination
CPT/HCPCS: 72100

== ENCOUNTER 2021-02-04 19:33 | Emergency (ER) | payer MEDICAID, SELFPAY ==
--- NOTE | 2021-02-04 19:15 | RT.EKG_ITS ---
APPROVED REPORT Exam: Resting ECG Reason for Exam: overdose Patient Location: E HR:94 bpm ECG Measurements Heart Rate 94 AXIS NH 155 P 51 QRSd 90 QRS -9 QT 360 T 52 QTc 450 Conclusion Sinus rhythm...normal P axis, V-rate 60- 99 Low voltage, precordial leads...precordial leads <1.0mV Physician: intervals stable, no stemi.
[2021-02-04 19:34] VITALS: BP 115/87; PULSE 100; RESP 16; O2SAT 98
--- NOTE | 2021-02-04 20:07 | NUR.NOTE ---
Pt arrived via EMS [place] at approx 1930. Per report from EMS pt had 60tabs of clonazepam rx filled on 01/28. When EMS arrived there were 6 tabs left in the bottle. Per pt spouse, pt had her medications changed last week and since then she has been acting erratic. Pt demanding her cell phone upon being placed into a safe room. Initially pt was refusing to be changed into paper scrubs. multiple staff into discuss policy with pt. LOI Agudelo and Shanda discussed hospital policy and attempted to have pt change into safety scrubs. Pt making statements to LOI Land Why the fuck do I need to change, my clothes arent going to hurt anyone. Pt noted to be increasingly agitated with staff and swearing, pt blankets removed until more cooperative. Pt then decided to throw the rest of the bedding on the floor and walked out to the hallway, only to be redirected by LOI Escobar and LOI Agudelo. After ~45min and the DO Concha in to discuss POC, pt was willing to allow for blood work and specimens to be obtained. LOI Land in to place IV and draw labs, pt then stated No, you are not putting an IV in me, I do not want it! RN out to grab a straight stick kit, in once again to obtain labs. Pt again agitated and swearing You only get one fucking shot at this, no digging around! RN asked to look at the patients other arm for labs. Pt stated I had fucking surgeries on the other arm, so no you are not using it! RN requested to utilize the patients hand and once again yelled at staff. Staff was able to obtain blood specimens and urine. VSP called to assist staff. Pt refused covid swab, again staff attempted to redirect and discuss the plan of care. Pt then stated Fine! this is fucking it! you have poked me enough. Will continue to monitor. VSP remained during MH evaluation. Awaiting plan of care. Nursing Note:
[2021-02-04 20:26] LABS: BE (Venous) 4 mmol/L (-2-3); HCO3 (Venous) 29 mmol/L (23-28); O2 Sat (Venous) 50 %; TCO2 (Venous) 26 mmol/L (24-29); pCO2 (Venous) 44 mmHg (41-51); pH (Venous) 7.42 (7.31-7.41); pO2 (Venous) 23 mmHg
[2021-02-04 20:30] LABS: Abs Immature Grans 0.05 10^3/uL (0.0-0.06); Absolute Basophil Count 0.09 10^3/uL (0.0-0.2); Absolute Eosinophil Count 0.76 10^3/uL (0.0-0.7); Absolute Lymphocyte Count 3.17 10^3/uL (1.2-3.4); Absolute Monocyte Count 0.68 10^3/uL (0.1-0.8); Basophils % 0.7; Eosinophils % 5.7; HCT 41.9 % (36.0-46.0); Immature Grans % 0.4; Lymphocytes % 23.8; MCH 31.6 pg (27.0-33.0); MCHC 33.4 % (32.0-36.0); MCV 94.6 fL (80-95); MPV 9.2 fL (8.0-11.0); Monocytes % 5.1; Neutrophils % 64.3; Nucleated RBC 0 %; Platelet Count 402 10^3/uL (130-400); RBC 4.43 10^6/uL (3.93-5.22); RDW 11.8 % (11.7-14.6); RDW-SD 41.3 fL; WBC 13.34 10^3/uL (4.4-10.8)
[2021-02-04 20:32] LABS: Absolute Neutrophil Count 8.58 10^3/uL (1.2-6.7)
[2021-02-04 20:36] LABS: Source Nasal/Nares
[2021-02-04 20:51] LABS: Bilirubin Negative (Negative); Blood Negative (Negative); Clarity Clear (Clear); Glucose >=1000 mg/dL (Negative); Ketones Negative (Negative); Leukocyte Esterase Trace (Negative); Nitrite Negative (Negative); Urobilinogen 0.2 EU/dL (Up TO 0.2); pH 5.5 (5-8)
--- NOTE | 2021-02-04 20:55 | W.ED.GENAD ---
Discharge Plan Disposition Patient Disposition: OTHER Condition: Good Discharge Details Clinical Impression: Depression Primary Care Provider: Aneta Perez ED Provider: Connor Kern Home Meds and New Rx's Prescriptions: Continued sucralfate [Carafate] 1 gram tablet 1 g PO QACHS Qty: 120 RF: 12 pantoprazole 40 mg tablet,delayed release (DR/EC) 40 mg PO DAILY Qty: 30 RF: 12 metformin 500 mg Tablet 1,000 mg PO BID RF: 0 ipratropium-albuterol 0.5 mg-3 mg(2.5 mg base)/3 mL solution for nebulization 3 ml IH Q6H Qty: 90 RF: 0 clonidine HCl 0.2 mg Tablet 0.1 mg PO QHS RF: 0 lamotrigine [Lamictal] 100 mg Tablet 100 mg PO BID RF: 0 venlafaxine 75 mg Capsule,Extended Release 24hr 75 mg PO DAILY RF: 0 atorvastatin 20 mg Tablet 20 mg PO DAILY RF: 0 clonazepam 1 mg tablet 1 mg PO BID PRN (Reason: Anxiety) RF: 0 ondansetron 4 mg Tablet,Disintegrating 4 mg PO PRN PRNRF: 0 benzocaine-allantoin 20 % Gel 1 applic MUCOUS MEMBRANE QID PRNRF: 0 amitriptyline 100 mg Tablet 150 mg PO QHS RF: 0 trazodone 100 mg Tablet 200 mg PO QHS RF: 0 tramadol 50 mg tablet 50 mg PO TID PRN (Reason: pain) Qty: 7 RF: 0 Discharge Instructions Instructions: Depression (ED) Additional Instructions: Please utilize the resources that you have with your mental health advocate. Please go directly with them to the crisis care bed. If you notice any worsening of your symptoms, or any new symptoms such as vomiting, diarrhea, fever, chills, shortness of breath, chest pain, numbness, weakness, or fainting , please return immediately to the emergency department for reevaluation. Please follow up with your primary care provider as soon as possible for reassessment and reevaluation. As always, it was a pleasure participating in your medical care today. Referrals: Aneta Perez [Primary Care Provider] - Medical Decision Making 40-year-old female with past medical history of Graves' disease, type 2 diabetes, anxiety, depression, rheumatoid arthritis, tubal ligation, who presents today for evaluation for mental health reasons. Patient is uncooperative with history. To me only states that she took some clonazepam, and just wanted to get my head right. She states that there have been recent changes in her medications, and aside for the clonazepam she is not sure which one. Currently she denies any auditory or visual hallucinations. She denies any homicidal ideations. She does not specifically say she wants to end her life. She did also cut herself earlier this evening on her left arm. Patient has attempted suicide before by overdosing on clonazepam. Additionally she has had episodes of notable depression and suicidal ideation in the past. Per nursing initial assessment, the patient stated that she was trying to get more intimate with her significant other, this was not reciprocated, and this led to a notable confrontation and discord that brought her to the point of taking her extra medications. Patient otherwise has no other complaints. She denies taking any extra Tylenol, Motrin, or other medications. Her bilateral for clonazepam was filled 1 week ago with a count of 60, now currently there are only pills left. The patient is unwilling to discuss how many she took specifically. She denies any IV or illicit drug use. She denies any alcohol use. Physical exam demonstrates superficial abrasions over the left forearm. No abdominal tenderness, no neurologic deficits. On my initial assessment the patient with flat affect, stated that she just wanted help getting her mind right again, and stated that she wants to go home. When I did ask about her attempt of ending her life by taking all the medication she does not want to speak any further about this. Patient initially after multiple requests refused changing to blue scrubs or get wanded down. Eventually we made it clear to the patient that for her own safety and the safety of the staff of the department this was part of our protocol. She eventually agreed, after which point she refused all other interventions including EKG and labs. It was at this point that the patient became notably confrontational, began screaming, yelling, and hitting various things in the room. Since no security is present at [facility] at this time, the [facility] police were called. By the time they did arrive we are able to verbally redirect the patient and she did not require chemical or physical restraints. I made it clear to the patient that with the medication that she took and the uncertainty if she took anything else that could be potentially life-threatening or harmful to her self we did need to medically evaluate her with labs and EKG to determine if she is safe for herself medically, and otherwise clear of potentially life-threatening intoxicants or overdose from other medications. Patient did have a sheet covering her at this time, and demanded more blankets. We offered additional blankets but stated that we needed to make sure she was safe to medically clear first. She then agreed to allow the blood draw and EKG to be performed. Mental health was contacted and they have come to evaluate the patient. We will continue to monitor the patient closely. EKG demonstrates normal intervals, no significant abnormalities. QRS normal. QTc stable/unremarkable 5:46 PM Laboratory work-up has returned, patient does demonstrate a mild white count of 13, urinalysis is negative for infection, lungs are clear, no clinical evidence of pneumonia. No fever. Symptoms appear inconsistent with infectious etiology, elevated white count likely reactive at this stage clinically. pH stable, bicarb minimally elevated. Electrolytes normal, magnesium minimally low at 1.4, thyroid function normal. Drug screen is negative aside for being positive for TCAs, however EKG shows no QRS prolongation. Drug screen is also negative for benzodiazepines. Acetaminophen level negative, alcohol negative, salicylates minimal at 6. Patient states that she did take 1 NSAID and potential aspirin earlier, but denies any additional ones. She states that this is much earlier in the day which would correlate well with that value. We were able to discuss again some of the details of the initial assessment when the patient was seen by her boyfriend and EMS. It appears that the patient had some pills in her mouth which were the Klonopin, and the boyfriend took these out, and when EMS arrived they also found a few more pills in her mouth that they took out. With her UDS being negative for benzos, and it being greater than 1 to 2 hours since she potentially would have taken them, I feel that significant overdose from benzodiazepines is unlikely, especially given the clinical outburst that she had earlier here today which certainly did not show evidence of a sedated individual from taking over 40 clonazepam. At this time we had a long discussion with the mental health colleagues, and they have had a significant discussion with the patient. Currently the patient is now denying any homicidal or suicidal ideations, she regrets what she did, she would like help and support. At this time mental health does feel this patient is safe for discharge, and would like to bring her to the crisis bed where she can continue to be monitored and supported and help. Patient agrees to this. Patient will be discharged per safety plan and mental health plan. Patient medically cleared at this time. I have addressed all patient concerns at this time. The patient was made aware of what symptoms to monitor for that would warrant a return to the emergency department. Discussed the plan with the patient, they demonstrate verbal understanding and agreement with our assessment and plan at this time. The documentation in this chart was dictated using [employer] dictation software. Please excuse any dictation errors. HPI General Date/Time Provider Initiated Documentation: 02/04/21 19:36. HPI Narrative: 40-year-old female with past medical history of Graves' disease, type 2 diabetes, anxiety, depression, rheumatoid arthritis, tubal ligation, who presents today for evaluation for mental health reasons. Patient is uncooperative with history. To me only states that she took some clonazepam, and just wanted to get my head right. She states that there have been recent changes in her medications, and aside for the clonazepam she is not sure which one. Currently she denies any auditory or visual hallucinations. She denies any homicidal ideations. She does not specifically say she wants to end her life. She did also cut herself earlier this evening on her left arm. Patient has attempted suicide before by overdosing on clonazepam. Additionally she has had episodes of notable depression and suicidal ideation in the past. Per nursing initial assessment, the patient stated that she was trying to get more intimate with her significant other, this was not reciprocated, and this led to a notable confrontation and discord that brought her to the point of taking her extra medications. Patient otherwise has no other complaints. She denies taking any extra Tylenol, Motrin, or other medications. Her bilateral for clonazepam was filled 1 week ago with a count of 60, now currently there are only pills left. The patient is unwilling to discuss how many she took specifically. She denies any IV or illicit drug use. She denies any alcohol use. Related Data Home Medications Medication Instructions Recorded Confirmed ipratropium-albuterol 3 ml IH Q6H #90 ml 08/09/19 08/24/20 metformin 1,000 mg PO BID 08/09/19 08/24/20 amitriptyline 150 mg PO QHS 11/16/19 08/24/20 clonidine HCl 0.1 mg PO QHS 02/06/20 08/24/20 lamotrigine [Lamictal] 100 mg PO BID 02/06/20 08/24/20 sucralfate 1 gram tablet 1 g PO QACHS #120 tab 02/10/20 08/24/20 pantoprazole 40 mg tablet,delayed 40 mg PO DAILY #30 tab 02/29/20 08/24/20 release tramadol 50 mg PO TID PRN #7 tab 07/31/20 08/24/20 trazodone 200 mg PO QHS 07/31/20 08/24/20 atorvastatin 20 mg PO DAILY 08/02/20 08/24/20 benzocaine-allantoin 1 applic MUCOUS MEMBRANE QID PRN 08/02/20 08/24/20 clonazepam 1 mg PO BID PRN 08/02/20 08/24/20 ondansetron 4 mg PO PRN PRN 08/02/20 08/24/20 venlafaxine 75 mg PO DAILY 08/02/20 08/24/20 Previous Rx's Medication Instructions Recorded ipratropium-albuterol 3 ml IH Q6H #90 ml 08/09/19 sucralfate 1 gram tablet 1 g PO QACHS #120 tab 02/10/20 pantoprazole 40 mg tablet,delayed 40 mg PO DAILY #30 tab 02/29/20 release tramadol 50 mg PO TID PRN #7 tab 07/31/20 Allergies Allergy/AdvReac Type Severity Reaction Status Date / Time amoxicillin Allergy Intermediate rash Unverified 08/24/20 06:23 Penicillins Allergy Skin Rash Unverified 08/24/20 06:23 naproxen AdvReac Intermediate That's Verified 08/24/20 06:23 how I ended up with an ulcer codeine AdvReac hallucinati Unverified 08/24/20 06:23 [From Tylenol-Codeine] ons General Stated Complaint: PsychEval HAYLEY: 2 Review of Systems All systems reviewed & are unremarkable except as noted in HPI and below PFSH Medical History Acute duodenitis Anxiety Arthritis Chemical gastritis Depression Diabetes mellitus, type 2 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 Intractable nausea and vomiting pt. denies this Postprandial RUQ pain Rheumatoid aortitis Rheumatoid arthritis Smoker Surgical History H/O tubal ligation History of esophagogastroduodenoscopy (EGD) (~02/13/20) History of surgery x4 surgeries to left hand Social History Smoking/Tobacco Use Status: Current every day Tobacco Type: cigarettes Smoking risk assessment performed?: Yes Alcohol Intake: never Drug use: Never Substance use type: does not use Do you feel safe at home: Yes (Unable to assess privately) Do you feel safe in your relationship?: Yes Exam Narrative Exam Narrative: 1.Const: Well-nourished, Well-developed, appearing stated age 2.Eyes: PERRL, no conjunctival injection, and symmetrical lids. 3.ENT: Atraumatic external nose and ears. Moist MM. Neck: Symmetric, trachea midline, No thyromegaly. 4.CVS: +S1/S2, No murmurs or gallops. Peripheral pulses 2+ and equal in all extremities. Brisk capillary refill in all extremities. 5.RESP: Unlabored respiratory effort. Clear to auscultation bilaterally. No wheezes rales or rhonchi 6.GI: Soft, Nontender/Nondistended, No hepatosplenomegaly. No guarding or rebound. 7.MSK: Normocephalic/Atraumatic, Extremities w/o deformity or ttp No cyanosis or clubbing, Normal movement of all extremities 8.Skin: Warm, Dry. Small superficial abrasions over the left forearm, no deep lacerations or cuts requiring suturing or bandaging. 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 Sensation grossly intact, no focal neurologic deficits. 10.Psych: (AAO) x3. Patient has a notably flat affect. Course Vital Signs Vital signs: Vital Signs Pulse 100 H 02/04/21 19:34 Respiratory Rate 16 02/04/21 19:34 Blood Pressure 115/87 02/04/21 19:34 Pulse Oximetry 98 02/04/21 19:34 Pulse 100 H 02/04/21 19:34 Respiratory Rate 16 02/04/21 19:34 Respiratory Effort Non-Labored 02/04/21 19:40 Blood Pressure 115/87 02/04/21 19:34 Blood Pressure Position Sitting 02/04/21 19:34 Pulse Oximetry 98 02/04/21 19:34 Oxygen Delivery Method Room Air 02/04/21 19:34 Oxygen Flow Rate 0 02/04/21 19:34 Pain Level 0 02/04/21 19:34 Lab/Test Results Lab/Test Results: Laboratory Tests Range/Units 02/04/21 02/04/21 02/04/21 20:20 20:20 20:25 WBC (4.4-10.8) 10^3/uL 13.34 H RBC (3.93-5.22) 10^6/uL 4.43 Hgb (11.2-15.7) g/dL 14.0 Hct (36.0-46.0) % 41.9 MCV (80-95) fL 94.6 MCH (27.0-33.0) pg 31.6 MCHC (32.0-36.0) % 33.4 RDW (11.7-14.6) % 11.8 Plt Count (130-400) 10^3/uL 402 H MPV (8.0-11.0) fL 9.2 Immature Gran % 0.4 Neutrophils % 64.3 Lymphocytes % 23.8 Monocytes % 5.1 Eosinophils % 5.7 Basophils % 0.7 Nucleated RBC % % 0 Absolute Neutrophils (1.2-6.7) 10^3/uL 8.58 H Absolute Lymphocytes (1.2-3.4) 10^3/uL 3.17 Absolute Monocytes (0.1-0.8) 10^3/uL 0.68 Absolute Eosinophils (0.0-0.7) 10^3/uL 0.76 H Absolute Basophils (0.0-0.2) 10^3/uL 0.09 VBG pH (7.31-7.41) 7.42 H VBG pCO2 (41-51) mmHg 44 VBG pO2 mmHg 23 VBG HCO3 (23-28) mmol/L 29 H VBG Total CO2 (24-29) mmol/L 26 VBG O2 Saturation % 50 VBG Base Excess (-2-3) mmol/L 4 H COVID-19 Source Nasal/Nares
[2021-02-04 20:56] LABS: Magnesium 1.4 mg/dL (1.8-2.4)
[2021-02-04 20:56] LABS: *AMPHETAMINES SCREEN URINE Negative (Negative); *BARBITURATES SCREEN URINE Negative (Negative); *BENZODIAZEPINES SCREEN URINE Negative (Negative); Cannabinoids THC Negative (Negative); Cocaine Screen,Urine Negative (Negative); METHADONE URINE SCREEN Negative (Negative); OPIATES URINE SCREEN Negative (Negative)
[2021-02-04 21:02] LABS: Tricyclic Antidepressants Positive (Negative)
[2021-02-04 21:02] LABS: ALT 33 U/L (14-59); AST 12 U/L (15-37); Albumin 3.8 g/dL (3.4-5.0); Alkaline Phosphatase 130 U/L (46-116); Anion Gap 7.9 mmol/L (3-11); BUN 17 mg/dL (7-18); Bilirubin, Total 0.3 mg/dL (0.2-1.0); CO2 28.1 mmol/L (21.0-32.0); CREATININE 0.9 mg/dL (0.55-1.02); Calcium 9.5 mg/dL (8.5-10.1); Chloride 101 mmol/L (98-107); Glucose 241 mg/dL (74-106); Sodium 137 mmol/L (136-145)
[2021-02-04 21:03] LABS: Bacteria Few HPF (Negative); C & S Indicated? Yes; Casts Negative LPF (Negative); Crystals Negative HPF (Negative); Epithelial Cells Few HPF (Negative); Mucus Negative (Negative); RBC Negative HPF (0-2); WBC 0-2 HPF (0-5)
[2021-02-04 21:24] LABS: ETHANOL BLOOD < 3.0 mg/dL (<3)
[2021-02-04 21:28] LABS: Acetaminophen < 2 ug/mL (10-30)
[2021-02-04 21:32] LABS: TSH (W/Ref FT4) 1.46 uIU/mL (0.36-3.74)
[2021-02-04 21:34] LABS: HCG Quant, Pregnancy < 1 mIU/mL (1-3)
--- NOTE | 2021-02-04 21:34 | PDOC.MHCN ---
Date of service: 02/04/21 Time of Service: 20:30 Mental Health Crisis Note Presenting Issue How did you arrive at the ED and why did you come: [facility] paged this screener to evaluate the patient. THis com writer arrived at [facility] at 8:30 p.m. to assess the patient. Precipitating Factors Patient stated that they have been struggling with fleeting suicidal thoughts since a recent medication change - patient reported that this happened on January 18, 2021. They reported that Seun Aronld, their provider added a new medication and the patient believes that the new med has been increasing thoughts of SI and SIB. The patient stated that she just wants to get help, for her and her relationship. Patient reported that their plan was to overdose on prescribed medications but, the labs indicate that despite self reporting taking a vial of their Clonazepam, however their was no evidence of benzodiazepines in the patients system. Disposition BEHAVIOR: Patient was tearful, apologetic and cooperative. MOOD: Expansive AFFECT: Anxious APPETITE: Patient reported to have decreased appetite over the last few weeks but, reported to normally eat one meal a day. SLEEP(trouble falling/staying asleep: Patient reported that they sleep a lot and lay in bed most of the day when they are not working. Plan Once patient is medically cleared the patient will be admitted to the [facility] bed (Hospital diversion bed/Crisis bed). Provisional Diagnosis Patient Reports: Major Depressive Disorder, Anxiety and PTSD Signature Clinician's Name/Title: Liss Kerr -Emergency Services Screener (after hours)
[2021-02-04 21:46] LABS: COVID-19 PCR Negative (Negative)
[2021-02-04 22:23] VITALS: BP 115/87; PULSE 100; RESP 16; TEMP 36.4; O2SAT 98
== END 2021-02-04 22:24 | disposition other institution (70) ==
PROVIDERS: Emergency Medicine; Emergency Provider Student in an Organized Health Care Education/Training Program; PCP Physician Assistant Medical
DX: F32.9 Major depressive disorder, single episode, unspecified (principal); R45.851 Suicidal ideations
CPT/HCPCS: 80053; 80307; 82805; 87635; 93005; 99285; 80320; 80329; 81003; 81015; 83735; 84443; 84702; 85025; 87086; 93010; 99284

== ENCOUNTER 2021-02-12 01:30 | Outpatient (CLI) | payer MEDICAID, SELFPAY ==
[2021-02-12 11:31] LABS: Abs Immature Grans 0.03 10^3/uL (0.0-0.06); Absolute Eosinophil Count 0.75 10^3/uL (0.0-0.7); Absolute Lymphocyte Count 2.33 10^3/uL (1.2-3.4); Absolute Monocyte Count 0.58 10^3/uL (0.1-0.8); Absolute Neutrophil Count 7.23 10^3/uL (1.2-6.7); Basophils % 0.9; Eosinophils % 6.8; HCT 39.1 % (36.0-46.0); HGB 13.5 g/dL (11.2-15.7); Immature Grans % 0.3; Lymphocytes % 21.1; MCH 31.9 pg (27.0-33.0); MCHC 34.5 % (32.0-36.0); MCV 92.4 fL (80-95); MPV 9.6 fL (8.0-11.0); Monocytes % 5.3; Neutrophils % 65.6; Nucleated RBC 0 %; Platelet Count 368 10^3/uL (130-400); RBC 4.23 10^6/uL (3.93-5.22); RDW 11.4 % (11.7-14.6); RDW-SD 38.6 fL; WBC 11.02 10^3/uL (4.4-10.8)
[2021-02-12 12:36] LABS: ALT 37 U/L (14-59); AST 9 U/L (15-37); Albumin 3.7 g/dL (3.4-5.0); Alkaline Phosphatase 181 U/L (46-116); Anion Gap 12.1 mmol/L (3-11); BUN 13 mg/dL (7-18); Bilirubin, Total 0.2 mg/dL (0.2-1.0); CO2 25.9 mmol/L (21.0-32.0); Calcium 9.1 mg/dL (8.5-10.1); Calculated LDL 103 mg/dL (<100); Chloride 101 mmol/L (98-107); Cholesterol 184 mg/dL (<200); Glucose 205 mg/dL (74-106); HDL Cholesterol 62 mg/dL (40-60); Potassium 4.2 mmol/L (3.5-5.1); Sodium 139 mmol/L (136-145); Total Protein 7.3 g/dL (6.4-8.2); Triglyceride 99 mg/dL (<150)
== END 2021-02-12 01:31 | disposition home or self-care (01) ==
LOC: LBO 01:30
PROVIDERS: Nurse Practitioner Psychiatric/Mental Health; PCP Physician Assistant Medical
DX: F43.23 Adjustment disorder with mixed anxiety and depressed mood (principal)
CPT/HCPCS: 36415; 80053; 80061; 85025

== ENCOUNTER 2021-02-13 03:17 | Outpatient (CLI) | payer MEDICAID, SELFPAY ==
[2021-02-15 17:18] LABS: Nortriptyline 94 ng/mL (70-170)
== END 2021-02-13 03:18 | disposition home or self-care (01) ==
LOC: LBO 03:18
PROVIDERS: PCP Physician Assistant Medical; Visit Provider Nurse Practitioner Psychiatric/Mental Health
DX: F43.23 Adjustment disorder with mixed anxiety and depressed mood (principal)
CPT/HCPCS: 80335

== ENCOUNTER 2021-05-06 10:45 | Outpatient (REF) | payer MEDICAID, SELFPAY ==
--- NOTE | 2021-05-06 10:30 | PAPFT_PTH ---
PATIENT: Caryl Hager LOC: [facility] U#:[id number] AGE/SX: 40/F ROOM: RE05/06/[address]: Do Parisi APRN : 1980 BED: DIS: 05/06/2021 SPEC #: [id number] RECD: 05/06/21 18:39 STATUS: MAYDA REQ #: [id number] HITESH: 05/06/21 10:[address]: Do Parisi DEPT: [facility] Cytology RECD BY: Concetta Guevara Tissues: 1 - CX/ENDOCX FOR PAP SMEARS Procedures: PAP THIN PREP/UVM Screening HPV DNA PROBE Comments: [id number]
== END 2021-05-06 10:46 | disposition home or self-care (01) ==
LOC: LBN 10:45
PROVIDERS: PCP Nurse Practitioner Adult Health; Visit Provider Nurse Practitioner Adult Health
DX: Z12.4 Encounter for screening for malignant neoplasm of cervix (principal); Z11.51 Encounter for screening for human papillomavirus (HPV)
CPT/HCPCS: 88142; 87624

== ENCOUNTER 2021-05-10 15:09 | Outpatient (REF) | payer MEDICAID, SELFPAY ==
[2021-05-13 15:27] LABS: Chlamydia Result Negative (Negative); GC Result Negative (Negative)
== END 2021-05-10 15:10 | disposition home or self-care (01) ==
LOC: NCHCN 15:09
PROVIDERS: PCP Nurse Practitioner Adult Health; Visit Provider Nurse Practitioner Adult Health
DX: N76.0 Acute vaginitis (principal); Z11.3 Encounter for screening for infections with a predominantly sexual mode of transmission
CPT/HCPCS: 87491; 87591; 87480; 87510; 87660

== ENCOUNTER 2021-07-31 01:41 | Outpatient (CLI) | payer MEDICAID, SELFPAY ==
[2021-07-31 14:05] LABS: Microalb ug/mg Crea 22.3 ug/mg Cr
[2021-07-31 14:16] LABS: ALT 60 U/L (14-59); AST 30 U/L (15-37); Albumin 4.1 g/dL (3.4-5.0); Alkaline Phosphatase 133 U/L (46-116); Anion Gap 12.9 mmol/L (3-11); BUN 15 mg/dL (7-18); Bilirubin, Total 0.4 mg/dL (0.2-1.0); CO2 25.1 mmol/L (21.0-32.0); CREATININE 0.8 mg/dL (0.55-1.02); Calcium 9.5 mg/dL (8.5-10.1); Calculated LDL 127 mg/dL (<100); Chloride 97 mmol/L (98-107); Cholesterol 205 mg/dL (<200); Glucose 161 mg/dL (74-106); HDL Cholesterol 53 mg/dL (40-60); Sodium 135 mmol/L (136-145); TSH (W/Ref FT4) 0.73 uIU/mL (0.36-3.74); Total Protein 7.9 g/dL (6.4-8.2); Triglyceride 128 mg/dL (<150)
[2021-08-01 10:11] LABS: Hepatitis C Ab w Rflx HCV PCR Negative (Negative)
[2021-08-01 10:36] LABS: HIV-1/2 Ag & Ab Screen Negative (Negative)
== END 2021-07-31 01:42 | disposition home or self-care (01) ==
LOC: LBO 01:41
PROVIDERS: PCP Nurse Practitioner Adult Health; Visit Provider Nurse Practitioner Adult Health
DX: E11.9 Type 2 diabetes mellitus without complications (principal); Z86.39 Personal history of other endocrine, nutritional and metabolic disease; Z11.4 Encounter for screening for human immunodeficiency virus [HIV]; Z11.59 Encounter for screening for other viral diseases
CPT/HCPCS: 36415; 80053; 80061; 86803; 87389; 82043; 82570; 83036; 84443

== ENCOUNTER 2021-08-16 01:02 | Outpatient (CLI) | payer MEDICAID, SELFPAY ==
--- NOTE | 2021-08-16 11:00 | NS.NUTBLAN_ITS ---
Liset Mcmillan was referred for diabetes self management education. 5'4 138 lbs BMI: 23. Stable weight. with long standing hx of Rheumatoid Arthritis (s/p multiple surgeries), Dm2, Graves Disease, Depression. Was diagnosed with Dm about 4 years ago after being on daily prednisone. Unable to check her blood sugars due to dexterity issues with hands secondary to RA. DM meds: 1000 mg metformin BID, 10 mg jardiance qd. Most recent A1C: 10% (07/31/21) indicating sugars averaging 250 mg/dl most days. Uncontrolled diabetes contributing to increased inflammation and pain for Liset Mcmillan. In view of dexterity issues, will need a continuous glucose monitor. Currently has iphone that can communicate with a Dexcom G6 sensor/transmitter. Liset Mcmillan reports stopping Jardiance as it made her feel tired. Referred Liset Mcmillan to Marvin Starkey, AnaliD to recommend ideal insulin dosage for glycemic management. Current Diet Plan contributing to high blood sugars. Tends to eat 2 donuts for breakfast and have take out for dinner, skips lunch. Today's session reviewed how to follow an anti inflammatory diet with complex carbs, lean protein and healthy fats. Provided meal plan. ALso, encouraged her to continue to take medications as prescribed as it will take time for her body to get used to blood sugars wnl. Fatigue is expected as blood sugars normalize. Plan: Liset Mcmillan to follow up next week with meal plan changes Will place Dexcom 6 continuous glucose monitor and help program iphone at next meeting Liset Mcmillan to follow up with Dr. Montero for medication adjustment and script for Dexcom G6
--- NOTE | 2021-08-23 13:51 | W.DIABETESNO ---
Date of service: 08/23/21 Time of Service: 13:52 Diabetes Note Reason for Visit: dm NOTE: Liset Mcmillan came back to outpatient counseling to have training on how to place a Dexcom 6 continuous glucose monitor. Reports no hypoglycemic events, however, continues to have blood sugars > 250 mg/dl much of the time. Iphone programed to read sensors. Agreed to remote monitoring by [facility]. will follow up on Thursday08/27/21 for data. Expect she will need basal insulin to help lower blood sugars. Time Spent in Nutritional Counseling and Treatment: 15
== END 2021-08-16 01:03 | disposition home or self-care (01) ==
LOC: DS 01:02
PROVIDERS: PCP Nurse Practitioner Adult Health; Visit Provider Dietitian, Registered
DX: E11.69 Type 2 diabetes mellitus with other specified complication (principal); Z79.84 Long term (current) use of oral hypoglycemic drugs; Z71.3 Dietary counseling and surveillance
CPT/HCPCS: 97802

== ENCOUNTER 2021-09-02 05:12 | Outpatient (CLI) | payer MEDICAID, SELFPAY ==
--- NOTE | 2021-09-02 14:00 | NS.NUTBLAN_ITS ---
Liset Mcmillan returns for diabetes self management education. Brings in her Tresiba pen for education. She also needs to replace her Dexcom 6 sensor. Current DM medication: 1 g metformin am, 1.5 g metformin pm. Jardiance discontinued, 10 units Tresiba qd Provided education on how inject long acting insulin. Liset Mcmillan demonstrated her ability to place needle on pen, prime and inject. Ambulatory Glucose Profile 09/02/20-August 23, 2001 Average Glucose: 188 mg/dl Time in Range (70-180 mg/dl): 46.8% Goal= >70% Below ideal range 180-250 mg/dl: 53% Goal = <25% of time >250 mg/dl: 11% of time Goal = <5% Blood sugars currently not at target but has not started tresiba until today during our session. Liset Mcmillan placed another sensor and linked to her phone. Has agreed to remote monitoring by consumer loan underwriter. Reports a lot of stress as kicked out her boy friend due to drinking. Reports not eating and has lost 4 lbs. Reviewed foods she is able to eat for glycemic regulation with long acting insulin. Willing to drink 3 muscle milks dailya nd 3 cups almond millk. Dexcom will alert her if she starts to trend down. Follow up scheduled for 09/09/21 at 2 pm via phone.
--- NOTE | 2021-09-03 09:36 | W.NUTRFU ---
Date of service: 09/03/21 Time of Service: 09:36 Nutrition Note NOTE: Spoke to Liset Mcmillan on phone. She reports frequent low blood sugars overnight, however, no symptoms of hypoglycemia. Did not take her blood sugar to verify hypoglycemia. Started 10 units Tresiba yesterday. Requested that she take her blood sugars when CGM alerts hypoglycemia. Requested that she reduce evening Tresiba dose tonight to 5 units and increase by 1 unit per day until fasting sugars are < 140 mg/dl. Will follow in next couple of days. Time Spent in Nutritional Counseling and Treatment: 5
--- NOTE | 2021-09-12 12:15 | W.DIABETESNO ---
Date of service: 09/12/21 Time of Service: 12:15 Diabetes Note Reason for Visit: dm NOTE: Liset Mcmillan returns to receive another sample Dexcom 6 CGM sensor, awaiting approval for insurance coverage. DM meds: 1000 mg metformin Am/1500 mg metformin PM, Tresiba 5 units qd. In last 14 days, average blood sugars: 166 mg/dl. Time in Range improved to 58.9% with frequent hyperglycemia (38% 180-250, 6.5% > 250 mg/dl). No hypoglycemia at this time. Blood sugars improving over all, CGM has been a great tool for Liset Mcmillan. Recommend that Liset Mcmillan increase her Tresiba by 1 unit every 3 days until fasting blood sugars < 140 mg/dl. Liset Mcmillan reports extreme fatigue as her blood sugars get into better control. Reassurred her that was expected. Will continue to follow and support. Time Spent in Nutritional Counseling and Treatment: 10
== END 2021-09-02 05:13 | disposition home or self-care (01) ==
PROVIDERS: PCP Nurse Practitioner Adult Health; Visit Provider Dietitian, Registered
DX: E11.9 Type 2 diabetes mellitus without complications (principal); Z79.84 Long term (current) use of oral hypoglycemic drugs; Z71.3 Dietary counseling and surveillance
CPT/HCPCS: 97803

== ENCOUNTER 2021-09-12 23:27 | Outpatient (CLI) | payer MEDICAID, SELFPAY | END 2021-09-12 23:28 | disposition home or self-care (01) | LOC: DS 23:27 | PROVIDERS: PCP Nurse Practitioner Adult Health; Visit Provider Dietitian, Registered ==

== ENCOUNTER 2021-10-29 02:43 | Outpatient (CLI) | payer MEDICAID, SELFPAY ==
[2021-10-29 09:07] LABS: ALT 44 U/L (14-59); AST 20 U/L (15-37); Albumin 3.3 g/dL (3.4-5.0); Alkaline Phosphatase 160 U/L (46-116); Bilirubin, Direct 0.1 mg/dL (0.0-0.2); Bilirubin, Total 0.2 mg/dL (0.2-1.0); Calculated LDL 93 mg/dL (<100); Cholesterol 165 mg/dL (<200); HDL Cholesterol 54 mg/dL (40-60); Total Protein 6.7 g/dL (6.4-8.2); Triglyceride 93 mg/dL (<150)
[2021-10-30 17:14] LABS: C-Peptide 0.6 ng/mL (1.1 - 4.4)
[2021-10-30 18:05] LABS: Hemoglobin A1C 7.1 % (<5.7)
[2021-11-05 13:02] LABS: Anti GAD65 Abs 20.8 nmol/L (<= 0.02); IA-2 Autoantibodies 0.45 nmol/L (<=0.02); ZnT8 Antibodies 284 U/mL (<15.0)
== END 2021-10-29 02:44 | disposition home or self-care (01) ==
LOC: LBO 02:43
PROVIDERS: PCP Nurse Practitioner Adult Health; Referring Provider Nurse Practitioner Adult Health; Visit Provider Nurse Practitioner Adult Health
DX: E11.65 Type 2 diabetes mellitus with hyperglycemia (principal); E78.5 Hyperlipidemia, unspecified; R74.01 Elevation of levels of liver transaminase levels
CPT/HCPCS: 36415; 80061; 80076; 86337; 86341; 83036; 84681

== ENCOUNTER → 2022-05-23 00:28 | Outpatient (CLI) | payer MEDICAID, SELFPAY ==
--- NOTE | 2022-05-23 | DI.RAD_ITS ---
Exam(s) XR THORACIC SPINE COMPLETE EXAM: XR THORACIC SPINE COMPLETE CLINICAL HISTORY: UPPER BACK PAIN, M54.9, MID T SPINE TO LOWER CERVICAL, ? COMP FX. TECHNIQUE: 2D digital imaging was performed of the thoracic spine. Three views were obtained. AP, swimmer's and lateral views were obtained. COMPARISON: CR XR CHEST 2V PA LATERAL from 08/09/2019 FINDINGS: BONES: There is no fracture or destructive lesion. The vertebral bodies and posterior elements are un remarkable. DISKS:Alignment is within normal limits. Interverebral disc spaces are maintained. SOFT TISSUE: Visualized lungs are clear. IMPRESSION: Unremarkable radiographs of the thoracic spine. DATA REPOSITORY: RADIATION DOSE DELIVERED:
--- NOTE | 2022-05-23 | DI.RAD_ITS ---
Exam(s) XR CERVICAL SP GAMBLE TRAUMA 2-3V EXAM: XR CERVICAL SP GAMBLE TRAUMA 2-3V CLINICAL HISTORY: UPPER BACK PAIN, M54.9, MID T SPINE TO LOWER CERVICAL, ? COMP FX. TECHNIQUE: 2D digital imaging was performed. Four images were obtained. COMPARISON: No exams were available for comparison FINDINGS: BONES: No fracture or destructive lesion. Vertebral bodies are unremarkable. DISKS: Intervertebral disc spaces are maintained. ALIGNMENT: Cervical spinal alignment is within normal limits. The odontoid and atlantoaxial articulat ions are normal. SOFT TISSUE: Normal. The lung apices are clear. IMPRESSION: Unremarkable radiographs of the cervical spine. DATA REPOSITORY: RADIATION DOSE DELIVERED:
== END ==
PROVIDERS: PCP Nurse Practitioner Adult Health; Visit Provider Internal Medicine Rheumatology
DX: M54.6 Pain in thoracic spine (principal); M54.2 Cervicalgia
CPT/HCPCS: 72040; 72072

== ENCOUNTER 2022-11-03 03:35 | Outpatient (CLI) | payer MEDICARE, SELFPAY ==
[2022-11-03 07:55] LABS: Hemoglobin A1C 7.1 % (<5.7)
[2022-11-03 08:08] LABS: Microalb ug/mg Crea 6.3 ug/mg Cr
[2022-11-03 08:21] LABS: Anion Gap 11.2 mmol/L (3-11); BUN 20 mg/dL (7-18); CO2 22.8 mmol/L (21.0-32.0); CREATININE 0.8 mg/dL (0.55-1.02); Calcium 8.7 mg/dL (8.5-10.1); Calculated LDL 80 mg/dL (<100); Chloride 101 mmol/L (98-107); Cholesterol 144 mg/dL (<200); Estimated GFR 94.87 (mL/min/1.73m2); Glucose 85 mg/dL (74-106); HDL Cholesterol 50 mg/dL (40-60); Potassium 3.8 mmol/L (3.5-5.1); Sodium 135 mmol/L (136-145); TSH (W/Ref FT4) 1.92 uIU/mL (0.36-3.74); Triglyceride 73 mg/dL (<150)
== END 2022-11-03 03:36 | disposition home or self-care (01) ==
LOC: LBO 03:35
PROVIDERS: PCP Nurse Practitioner Adult Health; Visit Provider Nurse Practitioner Adult Health
DX: E13.9 Other specified diabetes mellitus without complications (principal); E78.2 Mixed hyperlipidemia; F32.A Depression, unspecified; F41.9 Anxiety disorder, unspecified; K21.00 Gastro-esophageal reflux disease with esophagitis, without bleeding; M06.9 Rheumatoid arthritis, unspecified
CPT/HCPCS: 80048; 80061; 82043; 82570; 83036; 84443

== ENCOUNTER 2022-12-26 01:23 | Outpatient (CLI) | payer MEDICARE, SELFPAY ==
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
[2022-12-26 07:42] LABS: Abs Immature Grans 0.05 10^3/uL (0.0-0.06); Absolute Basophil Count 0.14 10^3/uL (0.0-0.2); Absolute Eosinophil Count 0.72 10^3/uL (0.0-0.7); Absolute Lymphocyte Count 1.82 10^3/uL (1.2-3.4); Absolute Monocyte Count 0.72 10^3/uL (0.1-0.8); Absolute Neutrophil Count 9.35 10^3/uL (1.2-6.7); Basophils % 1.1; Eosinophils % 5.6; HCT 38.4 % (36.0-46.0); HGB 13.3 g/dL (11.2-15.7); Immature Grans % 0.4; Lymphocytes % 14.2; MCH 31.2 pg (27.0-33.0); MCHC 34.6 % (32.0-36.0); MCV 90 fL (80-95); MPV 9.1 fL (8.0-11.0); Monocytes % 5.6; Neutrophils % 73.1; Platelet Count 435 10^3/uL (130-400); RBC 4.26 10^6/uL (3.93-5.22); RDW 13.3 % (11.7-14.6); RDW-SD 43.9 fL; WBC 12.79 10^3/uL (4.4-10.8)
[2022-12-26 08:00] LABS: ESR 29 mm/hr (0-20)
[2022-12-26 08:35] LABS: Hemoglobin A1C 7.1 % (<5.7)
[2022-12-26 08:53] LABS: ALT 39 U/L (14-59); AST 16 U/L (15-37); Albumin 3.6 g/dL (3.4-5.0); Alkaline Phosphatase 164 U/L (46-116); Anion Gap 11.7 mmol/L (3-11); BUN 11 mg/dL (7-18); Bilirubin, Total 0.4 mg/dL (0.2-1.0); CO2 24.3 mmol/L (21.0-32.0); CREATININE 0.8 mg/dL (0.55-1.02); Calculated LDL 78 mg/dL (<100); Chloride 101 mmol/L (98-107); Cholesterol 143 mg/dL (<200); Estimated GFR 94.87 (mL/min/1.73m2); Glucose 178 mg/dL (74-106); HDL Cholesterol 44 mg/dL (40-60); Potassium 3.8 mmol/L (3.5-5.1); Sodium 137 mmol/L (136-145); T4 7.2 ug/dL (4.7-13.3); TSH 1.02 uIU/mL (0.36-3.74); Total Protein 7.1 g/dL (6.4-8.2); Triglyceride 109 mg/dL (<150); Vitamin B12 681 pg/mL (193-986)
[2022-12-26 09:09] LABS: C-Reactive Protein 0.21 mg/dL (0.0-0.3); FREE T4 1.01 ng/dL (0.76-1.46)
[2022-12-29 10:08] LABS: IgG 734 mg/dL (610-1616)
[2022-12-29 11:25] LABS: C-Peptide 1.6 ng/mL (1.1 - 4.4)
[2022-12-29 15:48] LABS: CD19 <1 % (6-24); CD20 <1 % (6-24)
== END 2022-12-26 01:24 | disposition home or self-care (01) ==
LOC: LBO 01:23
PROVIDERS: PCP Nurse Practitioner Adult Health; Visit Provider Counselor Addiction (Substance Use Disorder)
DX: M05.79 Rheumatoid arthritis with rheumatoid factor of multiple sites without organ or systems involvement (principal); Z79.899 Other long term (current) drug therapy; E05.00 Thyrotoxicosis with diffuse goiter without thyrotoxic crisis or storm; F43.23 Adjustment disorder with mixed anxiety and depressed mood; F41.1 Generalized anxiety disorder; F43.10 Post-traumatic stress disorder, unspecified; F06.4 Anxiety disorder due to known physiological condition; F06.34 Mood disorder due to known physiological condition with mixed features
CPT/HCPCS: 36415; 80053; 80061; 82784; 85652; 88184; 88185; 82607; 83036; 84436; 84439; 84443; 84681; 85025; 86140

== ENCOUNTER 2023-01-27 13:00 | Outpatient (REF) | payer MEDICARE, MEDICAID, SELFPAY ==
[2023-01-28 13:53] LABS: Chlamydia Result Negative (Negative); GC Result Negative (Negative)
== END 2023-01-27 13:01 | disposition home or self-care (01) ==
LOC: LBN 13:00
PROVIDERS: PCP Nurse Practitioner Adult Health; Visit Provider Nurse Practitioner Family
DX: N89.8 Other specified noninflammatory disorders of vagina (principal); A59.01 Trichomonal vulvovaginitis
CPT/HCPCS: 87491; 87591; 87480; 87510; 87660

== ENCOUNTER 2023-05-03 07:28 | Emergency (ER) | payer MEDICARE, SELFPAY ==
[2023-05-03 07:31] VITALS: BP 119/83; PULSE 109; RESP 18; TEMP 37.2; O2SAT 99
[2023-05-03 07:38] VITALS: RESP 18
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
== END 2023-05-03 08:11 | disposition home or self-care (01) ==
LOC: ER 08:07
PROVIDERS: Emergency Provider Student in an Organized Health Care Education/Training Program; PCP Nurse Practitioner Adult Health
DX: U07.1 COVID-19 (principal)
CPT/HCPCS: 87426; 99282; 99283

== ENCOUNTER 2023-07-15 19:07 | Outpatient (REF) | payer MEDICARE, SELFPAY | END 2023-07-15 19:08 | disposition home or self-care (01) | LOC: NCHCN 19:07 | PROVIDERS: PCP Nurse Practitioner Adult Health; Referring Provider Nurse Practitioner Family; Visit Provider Nurse Practitioner Family | DX: N89.8 Other specified noninflammatory disorders of vagina (principal) | CPT/HCPCS: 87480; 87510; 87660 ==

== ENCOUNTER 2023-07-17 21:23 | Outpatient (REF) | payer MEDICARE, SELFPAY ==
[2023-07-19 14:26] LABS: Chlamydia Result Negative (Negative); GC Result Negative (Negative)
== END 2023-07-17 21:24 | disposition home or self-care (01) ==
LOC: LBN 21:23
PROVIDERS: PCP Nurse Practitioner Adult Health; Visit Provider Physician Assistant Medical
DX: N89.8 Other specified noninflammatory disorders of vagina (principal); A59.01 Trichomonal vulvovaginitis
CPT/HCPCS: 87491; 87591; 87480; 87510; 87660

== ENCOUNTER 2023-11-20 14:21 | Emergency (ER) | payer MEDICARE, SELFPAY ==
[2023-11-20 14:24] VITALS: BP 116/84; PULSE 95; RESP 16; TEMP 36.3; O2SAT 98
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
--- NOTE | 2023-11-20 14:45 | RT.EKG_ITS ---
APPROVED REPORT Exam: Resting ECG Reason for Exam: Epigastric pain Patient Location: E HR:84 bpm ECG Measurements Heart Rate 84 AXIS NJ 162 P 45 QRSd 91 QRS -6 QT 366 T 30 QTc 433 Conclusion Sinus rhythm...normal P axis, V-rate 60- 99 Low voltage, precordial leads...precordial leads <1.0mV Narrow complex normal sinus rhythm at a rate of 84. Left axis deviation no signs of LVH. Intervals within normal limits. Low voltage chest wall leads. Inferior T wave flattening. Compared to prior dated 3 years ago inferior T wave flattening is persistent. Low voltage is also persistent. No acut e injury pattern. no ST segment abnormalities.
--- NOTE | 2023-11-20 14:45 | DI.CT_ITS ---
Exam(s) CT ABDOMEN PELVIS W EXAM: CT ABDOMEN PELVIS W CLINICAL HISTORY: Right lower quadrant tenderness. TECHNIQUE: Imaging Protocol: Axial computed tomography images with coronal and sagittal reformatted images were created and reviewed CONTRAST MATERIAL: Intravenous: Omnipaque-350 100cc Oral: None COMPARISON: CT CT ABDOMEN PELVIS W from 02/06/2020 FINDINGS: VISUALIZED LUNG BASES: Mild increased subpleural markings in both lung bases slightly further increas ed from 2020. No associated pleural effusions. No rib destruction.. ABDOMEN: There is no ascites. LIVER: There are no focal hepatic lesions evident. No dilated intrahepatic ducts. GALLBLADDER/BILIARY: No obvious gallbladder pathology. CBD is not dilated. PANCREAS: No evidence of pancreatic mass nor dilatation of the pancreatic duct. SPLEEN: Spleen is not enlarged. No obvious intrasplenic lesions. Splenic and portal veins are paten t. ADRENALS: There are no significant adrenal masses. KIDNEYS:No cysts evident. No solid renal masses. No calculi nor hydronephrosis.. ABDOMINAL AORTA: Incidentally noted is independent origin of the splenic and common hepatic arteries off the anterior wall of the aorta instead of a common celiac trunk. The superior mesenteric artery appears unremarkable. DARRELL is also patent. No aneurysms. Iliac arteries unremarkable. LYMPH NODES:There is no retroperitoneal nor paraaortic adenopathy. ABDOMINAL WALL: There is a fat only containing umbilical hernia. No inguinal hernias evident. GI: There fluid-filled small bowel loops which exhibit normal diameters. There is circumferential thickening of the wall of most of the sigmoid, possibly significant. No lia rounding streaking. No adjacent lymphadenopathy. PELVIS: GI: Appendix is not seen and may be surgically absent.No evidence of sigmoid diverticulitis. LYMPH NODES: There is no intrapelvic nor inguinal adenopathy. REPRODUCTIVE: Uterus size normal.. There is a cyst in the right ovary which measures 2.3 by 2.2 cm. Left adnexa appears unremarkable. URINARY BLADDER: No calculi nor obvious masses evident OSSEOUS: No fractures and no significant osseous lesions. Partial sacralization of the L5 segment with articulation to the sacrum on the left side again noted IMPRESSION: 1. Appendix not able to be identified. No evidence of obvious appendicitis. 2. There appears to be uniform circumferential thickening of the wall of the recto sigmoid length. T his may be related to under distension but cannot exclude colitis pattern. There is no evidence of d iverticular disease in the sigmoid. 3. No evidence of bowel obstruction, free air, nor abscess. 4. Some increased subpleural markings are again noted in the bilateral lung bases. No associated ple ural effusions. Discussed by phone with ER physician. RADIATION DOSE DELIVERED: 1,009.44mGy.cm Total DLP DATA REPOSITORY: All CT scans at this facility are submitted to the National Radiology Data Registry (NRDR) Dose Index Registry (DIR) with the [employer] (ACR). RADIATION OPTIMIZATION: All CT scans at this facility use at least one of these dose optimization te chniques: automated exposure control; mA and/or kV adjustment per patient size (includes targeted exa ms where dose is matched to clinical indication); or iterative reconstruction.
[2023-11-20 15:39] LABS: Abs Immature Grans 0.05 10^3/uL (0.0-0.06); Absolute Eosinophil Count 0.95 10^3/uL (0.0-0.7); Absolute Lymphocyte Count 2.98 10^3/uL (1.2-3.4); Absolute Monocyte Count 0.58 10^3/uL (0.1-0.8); Basophils % 0.9 %; Eosinophils % 8.5 %; HCT 42.8 % (36.0-46.0); HGB 14.8 g/dL (11.2-15.7); Immature Grans % 0.4 %; Lymphocytes % 26.7 %; MCHC 34.6 % (32.0-36.0); MCV 92 fL (80-95); Monocytes % 5.2 %; Neutrophils % 58.3 %; Platelet Count 330 10^3/uL (130-400); RBC 4.63 10^6/uL (3.93-5.22); RDW 12.3 % (11.7-14.6); RDW-SD 41.7 fL; WBC 11.15 10^3/uL (4.4-10.8)
[2023-11-20] MEDS: Normal Saline 500 ML IV (15:46)
[2023-11-20] MEDS: Mylanta Suspension 30 ML CUP PO (15:46)
[2023-11-20] MEDS: Famotidine 20 MG/2 ML VIAL 40 MG IVP (15:46)
[2023-11-20 15:49] LABS: ALT 44 U/L (14-59); AST 22 U/L (15-37); Albumin 3.5 g/dL (3.4-5.0); Alkaline Phosphatase 185 U/L (46-116); Anion Gap 9.3 mmol/L (3-11); BUN 11 mg/dL (7-18); Bilirubin, Total 0.25 mg/dL (0.2-1.0); CO2 26.7 mmol/L (21.0-32.0); CREATININE 0.8 mg/dL (0.55-1.02); Calcium 8.6 mg/dL (8.5-10.1); Chloride 101 mmol/L (98-107); Estimated GFR 94.28 (mL/min/1.73m2); Glucose 194 mg/dL (74-106); Lipase 35 U/L (16-77); Potassium 4.6 mmol/L (3.5-5.1); Sodium 137 mmol/L (136-145); Total Protein 7.4 g/dL (6.4-8.2)
[2023-11-20 15:53] LABS: HCG Qual (Serum) Negative
[2023-11-20 17:00] VITALS: BP 145/60; PULSE 68; RESP 18; O2SAT 96
[2023-11-20] MEDS: Omnipaque 350 MG/ML 100 ML BTL IJ (17:05)
[2023-11-20] MEDS: Normal Saline - Diluent 50 ML VIAL IJ (17:05)
[2023-11-20] MEDS: Ketorolac 15 MG/ML VIAL IVP (17:19)
[2023-11-20 17:20] LABS: Troponin I < 50 ng/L (< or =60)
[2023-11-20 18:54] VITALS: BP 130/68; PULSE 72; RESP 18; O2SAT 96
== END 2023-11-20 19:20 | disposition home or self-care (01) ==
PROVIDERS: Emergency Provider Emergency Medicine; PCP Nurse Practitioner Adult Health
DX: R10.31 Right lower quadrant pain (principal); E11.9 Type 2 diabetes mellitus without complications; F17.210 Nicotine dependence, cigarettes, uncomplicated; Z79.4 Long term (current) use of insulin; Z79.84 Long term (current) use of oral hypoglycemic drugs
CPT/HCPCS: 80053; 81025; 83690; 93005; 96360; 96361; 99285; 74177; 84484; 84703; 85025; 93010; 99284; J1885; J3490

== ENCOUNTER → 2023-12-02 13:19 | Outpatient (BNVA) | payer MEDICARE, SELFPAY | PROVIDERS: PCP Nurse Practitioner Adult Health; Referring Provider Nurse Practitioner Adult Health; Visit Provider Surgery | DX: K25.9 Gastric ulcer, unspecified as acute or chronic, without hemorrhage or perforation (principal); K21.00 Gastro-esophageal reflux disease with esophagitis, without bleeding; R10.31 Right lower quadrant pain; K22.2 Esophageal obstruction; K44.9 Diaphragmatic hernia without obstruction or gangrene | CPT/HCPCS: 99214 ==

== ENCOUNTER → 2023-12-11 00:07 | Outpatient (CLI) | payer MEDICARE, SELFPAY ==
--- OUTSIDE RECORDS SUMMARY | 2023-12-11 00:09 | XMS_ITS | Encounter Summary ---
Author Organization [facility] [place] [address] Care Team Providers Care Creative Perfumer Name Role Phone Aneta Perez Primary Care Provider [phone] Encounter Details Date Type Department Care Team (Late st Contact Info) Description 01/14/2023 [place] [phone] Juan Manuel Sapp RN Social History Tobacco Use Types Packs/Day Years Used Date Smoking Tobacco: Every Day Cigarettes 1 15 Smokeless Tobacco: Never Alcohol Use Standard Drinks/Week Comments Not Currently 0 (1 standard drink = 0.6 oz pur e alcohol) Sex and Gender Information Value Date Recorded Sex Assigned at Not on file Gender Identity Not on file Sexual Orientation Not on file documented as of this encounter Miscellaneous Notes * Telephone Encounter - Juan Manuel Sapp RN - 01/14/2023 11:11 AM EDT Enrique Corado/Zak Lee are unavailable on line. This patient did not show for appointment [facility] or at [facility] in [facility]. I am notifying you. I wrote a note in [facility]. NOTE ABOVE BY ZACARIAS ARBOLEDA RN documented in this encounter Plan of Treatment Not on file documented as of this encounter Visit Diagnoses Not on filedocumented in this encounter Care Teams Creative Perfumer Relationship Specialty Start Date End Date Aneta Perez PA [address] [place] [address] [id number] PCP - General Family Medicine 10/17/19 documented as of this encounter
--- OUTSIDE RECORDS SUMMARY | 2023-12-11 00:09 | XMS_ITS | Encounter Summary ---
Author Organization [facility] [place] [address] Care Team Providers Care Corn Detasseler Name Role Phone Aneta Perez Primary Care Provider [phone] Encounter Details Date Type Department Care Team (Latest Contact Info) Description 08/20/2022 Travel Social History Tobacco Use Types Packs/Day Years [...] on file documented as of this encounter Plan of Treatment Not on file documented as of this encounter Visit Diagnoses Not on filedocumented in this encounter Care Teams Corn Detasseler Relationship Specialty Start Date End Date Aneta Perez PA [address] [place] [id number] PCP - General Family Medicine 10/17/19 documented as of this encounter
--- OUTSIDE RECORDS SUMMARY | 2023-12-11 00:09 | XMS_ITS | Data Portability ---
Author Organization [place] [facility] Address [place] [address] Care Team Providers Care Extruder Tender Name Role Phone TERRA OCASIOICA Primary Care Provider Assessment No assessment recorded. Plan of Treatment Reminders Order Date Submit Date Provider Last Modified By Organization Details Last Modified Time Details Appointments None recorded. Lab urinalysis, dipstick [email or web address], [facility] [address], [address], 4 15:06:32 test, urine 2023 [email or web address], [address], [address], 4 15:06:32 bacterial vaginosis + vaginitis panel, vaginal 2023 024 ALONZO [facility] (Registration ), [address] [place] [address] [place], [address], 4 13:55:37 urinalysis, dipstick 2023 [email or web address], [facility] [address], [address], 4 16:23:38 bacterial vaginosis + vaginitis panel, vaginal 2023 [facility] (Registration ), [address] [place] [address] [place], [address], 4 10:13:57 CT + NG RNA, PCR, unspecified specimen 2023 [facility] (Registration ), [address] [place] [address] [place], [address], 4 08:58:36 influenza virus A + B + SARS-CoV-2 (COVID19) Ag panel, rapid IA, upper respiratory specimen 2023 024 [email or web address] [facility], [address] [place] [address], [facility] [address], [place], [address], 4 18:02:42 rapid strep group A, throat 2023 024 [email or web address] [facility], [address] [place] [address], [address], [place], [address], 4 18:02:43 Referral None recorded. Procedures None recorded. Surgeries None recorded. Imaging None recorded. Medication Orders azithromyci n 250 mg tablet 2023 [place] [facility], [address] [place], [address], 4 18:02:42 Patient TargetsNo targets recorded. Patient Instructions Encounter Date Encounter Id Patient Instructions Last Modified By Organization Details Last Modified Time 07/17/2023 [id number] 1. Today we did a vaginal exam and I sent 2 swabs for testing. I will have the vaginal pathogen screen back tomorrow and I will communicate those results as soon as we are available to do so. This test is for yeast, bacterial vaginosis and trichomonas. 2. The other test was for gonorrhea chlamydia. That is a send out to [facility] and back and does take an additional few days. As soon as that returns we will communicate results to you as well. [email or web address] Not available 07/17/2023 16:29:58 09/14/2023 [id number] strep throat: care instructions Not available 09/14/2023 18:10:40 Reason for Referral None Reported. Results Created Date Observation Date Name Description Value Unit Range Abnormal Flag LastModifiedBy Organization Detail LastModifiedTime 07/15/19 24 07/15/2023 VAGIN AL PATHO GEN SCREE N vaginal pathogen screen Not Available [facility] (Registration ) [address], [place], [address], 07/15/2023 22:40:20 07/15/19 24 07/15/2023 urina lysis , dipst ick Leukocytes Modera te Not Available [address] [address], [place], [address], 07/15/2023 14:39:24 07/15/19 24 07/15/2023 urina lysis , dipst ick Nitrite negati ve Not Available [address] [address], [place], [address], 07/15/2023 14:39:24 07/15/19 24 07/15/2023 urina lysis , dipst ick Urobilinogen .2 Not Available [address] [address], [place], [address], 07/15/2023 14:39:24 07/15/19 24 07/15/2023 urina lysis , dipst ick Protein Negati ve Not Available [address] [address], [place], [address], 07/15/2023 14:39:24 07/15/19 24 07/15/2023 urina lysis , dipst ick pH 5.0 Not Available [address] [address], [place], [address], 07/15/2023 14:39:24 07/15/19 24 07/15/2023 urina lysis , dipst ick Blood Negati ve Not Available [address], [place], [address], 07/15/2023 14:39:24 07/15/19 24 07/15/2023 urina lysis , dipst ick Specific Machias 1.005 Not Available [address], [place], [address], 07/15/2023 14:39:24 07/15/19 24 07/15/2023 urina lysis , dipst ick Ketone Negati ve Not Available [address], [place], [address], 07/15/2023 14:39:24 07/15/19 24 07/15/2023 urina lysis , dipst ick Bilirubin Negati ve Not Available [address], [place], [address], 07/15/2023 14:39:24 07/15/19 24 07/15/2023 urina lysis , dipst ick Glucose Negati ve Not Available [address], [place], [address], 07/15/2023 14:39:24 07/15/19 24 07/15/2023 urina lysis , dipst ick Appearance Clear Not Available [address], [place], [address], 07/15/2023 14:39:24 07/15/19 24 07/15/2023 urina lysis , dipst ick Color Yellow Not Available [address], [place], [address], 07/15/2023 14:39:24 07/15/19 24 07/15/2023 pregn alex test, urine HCG negati ve Not Available [address], [place], [address], 07/15/2023 14:39:25 07/17/19 24 07/17/2023 VAGIN AL PATHO GEN SCREE N vaginal pathogen screen abnormal Not Available [facility] (Registration ) [address] [place] [address] [place], [address], 07/17/2023 23:09:00 07/17/19 24 07/19/2023 CHLAM YDIA/ GC AMPLI FIED RNA chlamydia result Negati ve negati ve Not Available [facility] (Registration ) [address] [place] [address] [place], [address], 07/20/2023 08:48:10 07/17/19 24 07/19/2023 CHLAM YDIA/ GC AMPLI FIED RNA GC result Negati ve negati ve Not Available [facility] (Registration ) [address] [place] [address] [place], [address], 07/20/2023 08:48:10 07/17/19 24 07/17/2023 urina lysis , dipst ick Leukocytes Large Not Available [address], [place], [address], 07/17/2023 15:40:32 07/17/19 24 07/17/2023 urina lysis , dipst ick Nitrite negati ve Not Available [address], [place], [address], 07/17/2023 15:40:32 07/17/19 24 07/17/2023 urina lysis , dipst ick Urobilinogen .2 Not Available Hilario taylor[address], [place], [address], 07/17/2023 15:40:32 07/17/19 24 07/17/2023 urina lysis , dipst ick Protein Trace Not Available Fernanda rodriguez [address], [place], [address], 07/17/2023 15:40:32 07/17/19 24 07/17/2023 urina lysis , dipst ick pH 5.0 Not Available Fernanda rodriguez [address], [place], [address], 07/17/2023 15:40:32 07/17/19 24 07/17/2023 urina lysis , dipst ick Blood Small Not Available [facility] [address], [place], [address], 07/17/2023 15:40:32 07/17/19 24 07/17/2023 urina lysis , dipst ick Specific Machias 1.005 Not Available [address], [place], [address], 07/17/2023 15:40:32 07/17/19 24 07/17/2023 urina lysis , dipst ick Ketone Negati ve Not Available [address], [place], [address], 07/17/2023 15:40:32 07/17/19 24 07/17/2023 urina lysis , dipst ick Bilirubin Negati ve Not Available [address], [place], [address], 07/17/2023 15:40:32 07/17/19 24 07/17/2023 urina lysis , dipst ick Glucose 250 Not Available [facility] [address], [place], [address], 07/17/2023 15:40:32 07/17/19 24 07/17/2023 urina lysis , dipst ick Appearance Cloudy Not Available Gennaro schneider [address], [place], [address], 07/17/2023 15:40:32 07/17/19 24 07/17/2023 urina lysis , dipst ick Color Yellow Not Available [facility] [address] [address], [place], [address], 07/17/2023 15:40:32 09/14/19 24 09/14/2023 influ olivia virus A + B + SARS- CoV-2 (COVI D19) Ag panel , rapid IA, upper respi rator y speci men Influenza A negati ve Not Available [address] [address], [place], [address], 09/14/2023 17:39:51 09/14/19 24 09/14/2023 influ olivia virus A + B + SARS- CoV-2 (COVI D19) Ag panel , rapid IA, upper respi rator y speci men Influenza B negati ve Not Available [address], [place], [address], 09/14/2023 17:39:51 09/14/19 24 09/14/2023 influ olivia virus A + B + SARS- CoV-2 (COVI D19) Ag panel , rapid IA, upper respi rator y speci men SARS-COV-2 negati ve Not Available [address], [place], [address], 09/14/2023 17:39:51 09/14/19 24 09/14/2023 rapid strep group A, throa t Strep positi ve Not Available [address], [place], [address], 09/14/2023 17:40:19 Result Notes None recorded. Problems Name Status Onset Date Resolution Date Notes Provider Name and Address Organization Details Recorded Time Otitis externa of right ear Active 021 Problem Code: H60.91; Problem Code Type: ICD-10; Not Available [facility] 3 06:00:40 Acute sinusitis Active 022 Problem Code: J01.90; Problem Code Type: ICD-10; Not Available [facility] 3 06:00:40 Disorder of nasal sinus Active 023 Not Available [facility] 3 06:00:40 Noninflammatory disorder of the vagina Completed 023 02/27/2023 Problem Code: N89.8; Problem Code Type: ICD-10; Not Available [facility] 3 06:00:40 Acute vaginitis Completed 023 02/03/2023 Problem Code: N76.0; Problem Code Type: ICD-10; Not Available [facility] 3 06:00:41 Vaginal discharge Active [address], [place], [address] , [facility] 4 16:45:08 Problem Notes None recorded. Medical Equipment None Reported. Allergies Allergen ID Allergen Name Allergen Category Reaction Reaction Severity Criticality Documentation Date Start Date Code Code System Note Provider Name and Address Organization Details Recorded Time 03714 amoxicill in trihydrat e medicatio n rash mild Not available 04/10/20232020 11644 8 RxNorm Bethany Pabon RN [facility], [facility] 4 14:32:51 52186 Medicinal product containin g penicilli n and acting as antibacte rial agent (product) medicatio n rash mild Not available 04/10/20232020 17012 05 SNOMED Bethany Pabon RN null, [facility] 4 14:32:48 01291 codeine medicatio n hallucina tions severe Not available 04/10/20232020 2670 RxNorm Bethany Pabon RN null, [facility] 4 14:32:43 32697 naproxen medicatio n other mild low 07/15/2023 7258 RxNorm Ulcer s Bethany Pabon RN null, [facility] 4 14:33:13 Medications Name Sig Start Date Stop Date Status Note LastModified by Organization Details LastModified Time atorvastati n 40 mg tablet active Not Available Not Available Not Available metformin 500 mg tablet TAKE ONE TABLET BY MOUTH TWICE DAILY active Not Available Not Available No t Available atorvastati n 20 mg tablet TAKE ONE TABLET BY MOUTH EVERY DAY FOR CHOLESTER OL 05/22 completed Not Available Not Available Not Available lamotrigine 200 mg tablet TAKE ONE TABLET BY MOUTH TWICE DAILY active Not Available Not Available No t Available amitriptyli ne 150 mg tablet TAKE ONE TABLET BY MOUTH AT BEDTIME 05/22 completed Not Available Not Available Not Available azithromyci n 250 mg tablet TAKE 2 TABLETS (500 MG) BY ORAL ROUTE ONCE DAILY FOR 1 DAY THEN 1 TABLET (250 MG) BY ORAL ROUTE ONCE DAILY FOR 4 DAYS 2023 active Not Available Not Available Not Avai lable prazosin 1 mg capsule active Not Available Not Available N ot Available Ativan 1 mg tablet Take 1 tablet twice a day by oral route. active Not Available Not Available No t Available clonazepam 1 mg tablet take one tablet by mouth twice daily as needed for anxiety. Administe r 30 minutes before bed 05/22 completed Not Available Not Available Not Available pseudoephed rine ER 120 mg tablet,exte nded release Take 1 tablet by mouth every morning as needed 10/15 completed Not Available Not Available Not Available metronidazo le 500 mg tablet Take 1 tablet every 12 hours by oral route for 7 days. 2023 active Not Available Not Available Not Avai lable amitriptyli ne 25 mg tablet active Not Available Not Available Not Available trazodone 100 mg tablet take two tablets by mouth at bedtime as needed for sleep active Not Available Not Available No t Available esomeprazol e magnesium 40 mg capsule,del ayed release active Not Available Not Available Not Available ziprasidone 40 mg capsule TAKE ONE CAPSULE BY MOUTH TWICE DAILY. TAKE WITH FOOD, MEAL OR SNACK 05/22 completed Not Available Not Available Not Available fluticasone propionate 50 mcg/actuati on nasal spray,suspe nsion [place] 1 spray into both nostrils twice a day 10/08 completed Not Available Not Available Not Available amitriptyli ne 100 mg tablet active Not Available Not Available Not Available acetaminoph en 500 mg capsule Take 2 capsule by mouth every six hours as needed for pain 03/07 completed Not Available Not Available Not Available neomycin-po lymyxin-hyd rocort 3.5 mg-10,000 unit/mL-1 % ear drops,susp Instill 4 drop into affected ear four times a day for 7 to 10 days. May discontin ue in 7 days if has complete resolutio n. 02/17 completed Not Available Not Available Not Available Bactrim DS 800 mg-160 mg tablet Take 1 tablet by mouth twice a day 01/27 completed Not Available Not Available Not Available aripiprazol e 2 mg tablet 01/27 completed Not Available Not Available Not Available quetiapine 50 mg tablet TAKE TWO TABLETS BY MOUTH DAILY AT BEDTIME NEEDED FOR INSOMNIA active Not Available Not Available No t Available BD Ultra-Fine Yajaira Pen Needle 32 gauge x active Not Available Not Available Not Available Vitals Date Recorded Body height Body mass index (BMI) Body weight Body temperature Respiratory rate Oxygen saturation Oxygen saturation in Arterial blood by Pulse oximetry Heart rate Systolic blood pressure Diastolic blood pressure Provider Name and Address Organization Details Last Updated DateTime 4 162.56 cm 27.5 kg/m2 98839.7 8 g 97.7 [degF] 17 /min 99 % 99 % 97 /min 127 mm[Hg] 88 mm[Hg] Bethany Pabon RN [facility] 4 14:32:26 Date Recorded Body height Body mass index (BMI) Body weight Respiratory rate Oxygen saturation Oxygen saturation in Arterial blood by Pulse oximetry Heart rate Body temperature Systolic blood pressure Diastolic blood pressure Provider Name and Address Organization Details Last Updated DateTime 4 162.56 cm 27.5 kg/m2 86235.7 8 g 20 /min 98 % 98 % 96 /min 97.7 [degF] 123 mm[Hg] 88 mm[Hg] Jerman Sargent MA [facility] 4 15:38:40 Date Recorded Body height Body mass index (BMI) Body weight Body temperature Oxygen saturation Oxygen saturation in Arterial blood by Pulse oximetry Heart rate Respiratory rate Systolic blood pressure Diastolic blood pressure Provider Name and Address Organization Details Last Updated DateTime 162.56 cm 26.9 kg/m2 14268 g 98.5 [degF] 99 % 99 % 97 /min 18 /min 109 mm[Hg] 73 mm[Hg] Alie Dudley MA [facility] 4 17:19:54 Social History Question Answer Notes LastModified by Organizat ion Details LastModified Time Tobacco Smoking Status Current Every Day Smoker Bethany Pabon RN [facility], [facility] 07/15/2023 14:35:48 What Was The Date Of Your Most Recent Tobacco Screening? 07/15/2023 Information not available 07/15/2023 How Much Tobacco Do You Smoke? 1 PPD Information not available 07/15/2023 Has Tobacco Cessation Counseling Been Provided? Yes Information not available 07/15/2023 On What Date Was Tobacco Cessation Counseling Provided? 07/15/2023 Information not available 07/15/2023 Do You Or Have You Ever Used Any Other Forms Of Tobacco Or Nicotine? No Information not available 07/15/2023 Sex: Female Functional Status None recorded. Mental Status None recorded. Family History Nothing Reported. Medical History No medical history recorded. Gynecological HistoryNo gynecological history recorded. Obstetrics History GPAL:G 0 P 0 0 0 0 Immunizations Vaccine Type Date Status Provider Name and Address Organization Details Recorded Time Tdap 04/20/2014 completed Not Available [facility] 06:11:15 pneumococcal polysaccharide PPV23 04/01/2021 completed Not Available [facility] 2022 06:11:16 influenza, unspecified formulation 06/30/2022 completed Not Available [facility] 04/10/2023 06:11:16 influenza, unspecified formulation 02/27/2023 completed Bethany Pabon RN [facility], [place] [facility] 07/15/2023 14:18:05 Past Encounters Encounter ID Performer Location Encounter Start Date Encounter Closed Date Diagnosis/Indication Diagnosis SNOMED-CT Code [id number] JERMAN HUYNH [employer] [address] [place] [address] 07/15/2023 14:12:42 07/15/2023 15:37:29 Vaginal irritation [id number] JOON PERAZA PA-C [address] [place] [address] 07/17/2023 14:14:57 07/17/2023 16:33:37 Vaginal discharge [id number] JERMAN HUYNH [address] [place] [address] 09/14/2023 16:51:45 09/14/2023 18:36:33 Streptococcal sore throat [id number] Health Concerns Section Related Observation LastModified by Organization Detai ls LastModified Time None Recorded Concern Status LastModified by Organization Details LastModified Time None Recorded Advance Directives Directive None Recorded Payers Encounter Date Sequence Insurance Name Policy Number Policy [place] Covered Member ID [place] Member ID Guarantor Name 07/15/2023 1 [place] [employer] Bobbijo L Fissette [id number] 2 Bobbijo Fissette 07/17/2023 1 [place] [employer] Bobbijo L Fissette [id number] 2 Bobbijo Fissette 09/14/2023 1 [place] [id number] 2 Muriel Hager Notes Date Note Type Note Provider Name and Address Organization Details Recorded Time 07/15/2023 text/html HPI Notes: Patie nt with new onset vaginal discharge, per patient, very light green in color, more discharge than normal, but no odor, and vulvar/labial itching, with redness to R inguinal fold. Denies pelvic pain, dysuria, urinary frequency. Patient recently completed antibiotic treatment (Zithromax) for sinus infection in the last few weeks. No new sexual partners. Has had tubal ligation for contraception. Reports amenorrhea X 1 year, had uterine ablation 10 years ago. Patient reports she had what she thinks was BV diagnosed 6 months ago, treated with oral Flagyl X 7 days, and did seem to be completely resolved. Upon review, patient was seen at this clinic 12/2022, and tested + for trichomoniasis, and completed PO Flagyl treatment. TOI KING [address], [place], [address], [facility]. 07/15/2023 15:22:46 07/17/2023 text/html HPI Notes: Liset is a 42-year-old female who presents for reevaluation of continued vaginal irritation despite negative vaginal pathogen screen obtained 2 days ago. She states on Thursday she noted some sludgy green vaginal discharge which was itchy but has improved a bit. States it feels similar to when she had BV. She has not had fevers or chills. No nausea or vomiting. No urinary complaints. She does endorse she did not have vaginal exam done 2 days ago would prefer to have that done today. She does not think she has had any recent exposures to sexually transmitted infections but is agreeable to testing. JOON PERAZA PA-C [address], [place], [address], [facility]. 07/17/2023 16:45:26 09/14/2023 text/html HPI Notes: Patie nt with onset of symptoms approximately 1 week ago, with facial/sinus pressure, with post nasal drip, worse when laying down. Has had some ear aching, and decreased hearing, but no ear drainage. Does report some mild anterior neck tenderness. Denies sore throat, no cough. No fevers, body aches, sweats, or chills. Patient has taken OTC Benadryl for symptoms. Has not used any nasal saline rinses. Patient is current smoker, she reports a history of sinus infections. JERMAN HUYNH, TOI [address], [place], [address], [facility]. 09/14/2023 18:11:23 OBGyn Episode No OBEpisode recorded.
--- OUTSIDE RECORDS SUMMARY | 2023-12-11 00:09 | XMS_ITS | Continuity of Care Document ---
Author Organization [place] [facility], [facility] Address [address] [place] [address] Care Team Providers Care Call Center Support Representative Name Role Phone JERMAN OCASIO Primary Care Provider Assessment No assessment recorded. Plan of Treatment Reminders Order Date Submit Date Provider Last Modified By Organization Details Last Modified Time Details Appointments None recorded. Lab influenza virus A + B + SARS-CoV-2 (COVID19) Ag panel, rapid IA, upper respiratory specimen 2023 024 [email or web address] [facility], [address] [place] [address], [address] [address], [place], [address], 18:02:42 rapid strep group A, throat 2023 024 [facility], [address] [place] [address], [address] [address], [place], [address], 18:02:43 Referral None recorded. Procedures None recorded. Surgeries None recorded. Imaging None recorded. Medication Orders azithromyci n 250 mg tablet 2023 024 [facility], [address] [place], [address], 18:02:42 Patient TargetsNo targets recorded. Patient Instructions Encounter Date Encounter Id Patient Instructions Last Modified By Organization Details Last Modified Time 09/14/2023 [id number] strep throat: care instructions [email or web address] Not available 09/14/2023 18:10:40 Reason for Referral None Reported. Results Created Date Observation Date Name Description Value Unit Range Abnormal Flag LastModifiedBy Organization Detail LastModifiedTime 09/14/19 24 09/14/2023 influ olivia virus A + B + SARS- CoV-2 (COVI D19) Ag panel , rapid IA, upper respi rator y speci men Influenza A negati ve Not Available [address] [address], [place], [address], 09/14/2023 17:39:51 09/14/19 24 09/14/2023 influ olivia virus A + B + SARS- CoV-2 (COVI D19) Ag panel , rapid IA, upper respi rator y speci men Influenza B negati ve Not Available [address] [address], [place], [address], 09/14/2023 17:39:51 09/14/19 24 09/14/2023 influ olivia virus A + B + SARS- CoV-2 (COVI D19) Ag panel , rapid IA, upper respi rator y speci men SARS-COV-2 negati ve Not Available [address], [place], [address], 09/14/2023 17:39:51 09/14/19 24 09/14/2023 rapid strep group A, throa t Strep positi ve Not Available [address] [address], [place], [address], 09/14/2023 17:40:19 Result Notes None recorded. Problems Name Status Onset Date Resolution Date Notes Provider Name and Address Organization Details Recorded Time Otitis externa of right ear Active 021 Problem Code: H60.91; Problem Code Type: ICD-10; Not Available [facility] 06:[facility]:40 Acute sinusitis Active 022 Problem Code: J01.90; Problem Code Type: ICD-10; Not Available [facility] 3 06:00:40 Disorder of nasal sinus Active 023 Not Available [facility] 3 06:00:40 Noninflammatory disorder of the vagina Completed 023 02/27/2023 Problem Code: N89.8; Problem Code Type: ICD-10; Not Available [facility] 3 06:00:40 Acute vaginitis Completed 023 02/03/2023 Problem Code: N76.0; Problem Code Type: ICD-10; Not Available [facility] 3 06:00:41 Vaginal discharge Active [address], [place], [address] [facility] 4 16:45:08 Problem Notes None recorded. Medical Equipment None Reported. Allergies Allergen ID Allergen Name Allergen Category Reaction Reaction Severity Criticality Documentation Date Start Date Code Code System Note Provider Name and Address Organization Details Recorded Time 07185 amoxicill in trihydrat e medicatio n rash mild Not available 04/10/20232020 22991 8 RxNorm Bethany Pabon RN null, [facility] 4 14:32:51 20822 Medicinal product containin g penicilli n and acting as antibacte rial agent (product) medicatio n rash mild Not available 04/10/20232020 97442 05 SNOMED Bethany Pabon RN null, [facility] 4 14:32:48 42181 codeine medicatio n hallucina tions severe Not available 04/10/20232020 2670 RxNorm Bethany Pabon RN null, [facility] 4 14:32:43 87463 naproxen medicatio n other mild low 07/15/2023 7258 RxNorm Ulcer s Bethany Pabon RN null, [facility] 4 14:33:13 Medications Name Sig [...] propionate 50 mcg/actuati on nasal spray,suspe nsion [facility] 1 spray into both nostrils twice a [...] Last Updated DateTime 162.56 cm 26.9 kg/m2 83414 g 98.5 [degF] 99 % 99 % 97 /min 18 /min 109 mm[Hg] 73 mm[Hg] Alie Dudley MA [facility] 17:19:54 Social History Question Answer Notes LastModified by Organizat ion Details LastModified Time Tobacco Smoking Status Current Every Day Smoker Bethany Pabon RN null, [facility] 07/15/2023 14:35:48 What Was The [...] Recorded Time Tdap 04/20/2014 completed Not Available [facility] 06:11:15 pneumococcal polysaccharide PPV23 04/01/2021 completed Not Available [facility] 2022 06:11:16 influenza, unspecified formulation 06/30/2022 completed Not Available [facility] 04/10/2023 06:11:16 influenza, unspecified formulation 02/27/2023 completed Bethany Pabon RN [facility] 07/15/2023 14:18:05 Past Encounters Encounter ID Performer Location Encounter Start Date Encounter Closed Date Diagnosis/Indication Diagnosis SNOMED-CT Code [id number] [facility]TI [facility]ING [address] [place] [address] 09/14/2023 16:51:45 09/14/2023 18:36:33 Streptococcal sore throat 43720067 Health Concerns Section Related Observation LastModified by Organization Detai ls LastModified Time None Recorded Concern Status LastModified by Organization Details LastModified Time None Recorded Payers Encounter Date Sequence Insurance Name Policy Number Policy Dupont Covered Member ID Dupont Member ID Guarantor Name 09/14/2023 1 MEDICARE [place]: [employer] Bobaaron L Fissette [id number] 2 Muriel Fissette Notes Date Note Type Note Provider Name and Address Organization Details Recorded Time 09/14/2023 text/html HPI Notes: Patie nt with [...] infections. JERMAN HUYNH, TOI [address], [place], [address], [facility]. 09/14/2023 18:11:23 OBGyn Episode No OBEpisode recorded.
--- OUTSIDE RECORDS SUMMARY | 2023-12-11 00:09 | XMS_ITS | Encounter Summary ---
Author Organization [facility] Address [facility] [place] [address] Care Team Providers Care Top Tile Decorator Name Role Phone Aneta Perez Primary Care Provider [phone] Reason for Visit * Reason Comments Follow Up Surgery Encounter Details Date Type Department Care Team (Late st Contact Info) Description 08/20/2022 10:45 AM EDT Office Visit Plastic Surgery at [facility] [address] [place] [address] Ulises Parry MD [facility] [place] [address] Surgery follow-up Social History Tobacco Use Types Packs/Day Years [...] on file documented as of this encounter Progress Notes * Ulises Parry MD - 08/20/2022 10:45 AM EDT Plastic Surgery Follow Up Note Provider: Ulises Parry MD Reason for visit: F/U status post procedure Date of surgery: 07/22/22 Procedure(s): kat reconstruction, redo FTP (Sohan) Complications: None reported Date of surgery: 10/02/20 Procedure(s): A1 kat reconstructed with PL tendon from R wrist. Dense scar tissue in palm released. Z-plasty performed. Complications: None reported Date of surgery: 03/27/2020 Procedure(s): Left FDP tendon transfer from middle to index finger performed at wrist.??Index lumbricals released with Dr. Parry/Rachel Complications: None reported ?? Date of surgery: 12/05/2019 Procedure(s): Left index finger tenolysis. Complications: None reported ?? HPI: Pt reports she still hasn't been able to get more motion in her left hand. Examination: There were no vitals taken for this visit. Patient is alert, conversant, comfortable, ambulating Splint removed. Incision: CDI, healing well. No collection, no erythema, no evidence of cellulitis. Long finger in more flexion that index, minimal motion at index PIP/DIP. Hand n/v intact. Impression: Liset Hager is a 41 y.o. female who was seen today for follow- up after the above procedure. Please see the operative note for details. She is recovering, she cannot take NSIADs due to her hx of gastric ulcers. I recommend that the patient see Dr. Berger to get a second opinion, I have tried all the surgical maneuvers that I can think of to improve her motion. I feel her case is in need of a new perspective. Plan: Follow up with Dr. Berger Patient may apply lotion to her hand Patient may discontinue use of the brace OT to continue for Lala DELGADO, have performed the documentation for this encounter in the presence of and acting as a scribe for Ulises Parry MD. documented in this encounter Plan of Treatment Not on file documented as of this encounter Visit Diagnoses Diagnosis Surgery follow-up Follow-up examination, following unspecified surgery documented in this encounter Care Teams Top Tile Decorator Relationship Specialty Start Date End Date Aneta Perez PA [address] [place], [place] [id number] PCP - General Family Medicine 10/17/19 documented as of this encounter
--- OUTSIDE RECORDS SUMMARY | 2023-12-11 00:09 | XMS_ITS | Encounter Summary ---
Author Organization [facility] [place] [address] Care Team Providers Care Unionmelt Operator Name Role Phone Aneta Perez Primary Care Provider [phone] Encounter Details Date Type Department Care Team (Late st Contact Info) Description 07/28/2022 Telephone [place] [phone] Krissy De Leon RN Social History Tobacco Use Types Packs/Day [...] encounter Miscellaneous Notes * Telephone Encounter - Krissy De Leon RN - 07/29/2022 4:32 PM EST TC from August at the [facility] asking for new orders and PA for the Rituxan. Fax to Facility. documented in this encounter Plan of Treatment Not on file documented as of this encounter Visit Diagnoses Not on filedocumented in this encounter Care Teams Unionmelt Operator Relationship Specialty Start Date End Date Aneta Perez PA [address] [place] [address] PCP - General Family Medicine 10/17/19 documented as of this encounter
--- OUTSIDE RECORDS SUMMARY | 2023-12-11 00:09 | XMS_ITS | Clinical Summary ---
Author Organization [facility] Address [facility] [place] [address] Care Team Providers Care Customizer Name Role Phone Aneta Perez Primary Care Provider [phone] Allergies Active Allergy Reactions Criticality Noted Date Comments Amoxicillin Rash 10/05/2019 Doxycycline 04/30/2020 Other reaction(s): unknown Egg Nausea Only 07/15/2016 Milk Other (See Comments) High 07/15/2016 Upset stomach Naproxen Other (See Comments) 02/16/2020 Gastric ulcer Nitrofurantoin 04/30/2020 Other reaction(s): unknown Omeprazole 04/30/2020 Other reaction(s): unknown Penicillin V Potassium 04/30/2020 Other reaction(s): rash Penicillins Rash 07/15/2016 Acetaminophen-Codeine Other (See Comments) 07/02 Don't know where I am, or what I'm doing Medications Medication Sig Dispensed Refills Start Date End Date Status metFORMIN (GLUCOPHAGE) 500 mg Tablet Take 500 mg by mouth 2 times daily (with meals). Active amitriptyline (ELAVIL) 100 mg Tablet Take 1 tablet by mouth daily. 05/13/2018 Active ONETOUCH ULTRA BLUE TEST STRIP Strip as needed. 01/25/2018 Active ONETOUCH ULTRA2 Kit as needed. 01/25/2018 Activ e lamoTRIgine (LAMICTAL) 100 mg Tablet Take 200 mg by mouth 2 times daily. In am 04/28/2018 Active lamoTRIgine (LAMICTAL) 25 mg Tablet Take 50 mg by mouth every evening. 05/13/2018 Active albuterol (PROVENTIL) 2.5 mg /3 mL (0.083 %) Solution for Nebulization prn 09/29/2018 Active rituximab (RITUXAN IV) Inject into the vein. Active diclofenac (Voltaren) 1 % Gel Apply 2 g topically 4 times daily. 1 Tube 11 04/03/2020 Active acetaminophen (Tylenol) 325 mg Tablet 2 tabs Active esomeprazole (NexIUM) 40 mg Capsule, Delayed Release(E.C.) 05/13/2022 Active Insulin Tresiba FlexTouch U-100 100 unit/mL (3 mL) Insulin Pen 03/11/2022 Active LORazepam (Ativan) 1 mg Tablet 1 mg. 05/06/2022 Active QUEtiapine (SEROquel) 50 mg Tablet 05/05/2022 Active traZODone (Desyrel) 100 mg Tablet Take 200 mg by mouth nightly. 05/06/2022 Active amitriptyline (Elavil) 25 mg Tablet 05/06/2022 Active atorvastatin (Lipitor) 40 mg Tablet 05/06/2022 Active lamoTRIgine (LaMICtal) 200 mg Tablet Take 200 mg by mouth 2 times daily. 05/06/2022 Active metFORMIN XR (Glucophage XR) 500 mg Tablet Sustained Release 24 hr Take 500 mg by mouth 2 times daily. 3 tablets at night, 2 tablets in AM, pt reported 05/06/2022 Active traMADoL (Ultram) 50 mg TabletIndications:Rh eumatoid arthritis involving multiple sites with positive rheumatoid factor,Other secondary osteoarthritis of multiple sites Take 1-2 tablets by mouth every 8 hours as needed for Pain. 100 tablet 1 05/23/2022 Active ondansetron ODT (Zofran-ODT) 4 mg Tablet, Rapid DissolveIndications: High risk medication use,Infusion reaction, subsequent encounter,Drug-induc ed nausea and vomiting Take 1 tablet by mouth every 8 hours as needed for Nausea. 20 tablet 3 07/17/2022 Active oxyCODONE (Roxicodone) 5 mg TabletIndications:H/ O hand surgery Take 1 tablet by mouth every 4 hours as needed for Pain. 10 tablet 07/30/2022 Active Additional Information Patient not taking.Reported on 08/20/2022 Active Problems Problem Noted Date Diagnosed Date Rupture of flexor tendon of finger 05/26/2022 Pain in finger of left hand 10/03/2020 Surgery follow-up 09/06/2020 Overview (09/06/2020): Added automatically from request for surgery [id number] Other specified diabetes gennaro litus with other specified complication 08/18/2020 Chronic pain of both knees 08/18/2020 Tendon rupture of wrist 02/16/2020 Overview (02/16/2020): Added automatically from request for surgery [id number] Tendon dysfunction 10/06/2019 Rheumatoid arthritis involvi ng multiple sites with positive rheumatoid factor 06/02/2018 High risk medication use 06/02/2018 Degenerative joint disease involving multiple mari ints 06/02/2018 Cigarette smoker 06/02/2018 Graves disease 06/02/2018 Depression 01/04/2011 Anxiety 01/04/2011 Social History Tobacco Use Types Packs/Day Years Used Date Smoking Tobacco: Every Day Cigarettes 1 15 Smokeless Tobacco: Never Tobacco Cessation:Ready to Q uit: No; Counseling Given: Not Answered Alcohol Use Standard Drinks/Week Comments Not Currently 0 (1 standard drink = 0.6 oz pur e alcohol) DH IPV Inpatient Questions Answer Date Recorded Prevent Contact with Others no 07/02 Feels Threatened by Someone no 07/02 Feels Unsafe at Home no 07/11/2023 Physical Signs of Abuse Present no 07/11/2023 Sex and Gender Information Value Date Recorded Sex Assigned at Not on file Gender Identity Not on file Sexual Orientation Not on file Last Filed Vital Signs Vital Sign Reading Time Taken Comments Blood Pressure 109/63 07/22/2022 1:00 PM EST Pulse 91 07/22/2022 1:00 PM EST Temperature 36.5 ??C (97.7 ??F) 07/22/2022 12:[address] Respiratory Rate 16 07/22/2022 1:00 PM EST Oxygen Saturation 94% 07/22/2022 1:00 PM EST Inhaled Oxygen Concentration - - Weight 63.5 kg (140 lb) 07/22/2022 9:52 AM EST Height 157.5 cm (5' 2) 07/22/2022 9:52 AM EST Body Mass Index 25.61 07/22/2022 9:52 AM EST Plan of Treatment Health Maintenance Due Date Last Done Comments Pneumococcal Vaccine: At-Ris k 5-64yrs (1 of 2 - PCV) 09/23/1987 DM Opthalmology Exam 09/23/1991 DM Urine Microalbumin yearly 09/23/1991 HIV screen 09/23/1999 Hepatitis C Screening 09/23/1999 Tdap adult 2000 Tetanus vaccine 2000 HPV test 09/23/2011 PAP Smear 09/23/2011 DM Hemoglobin A1c 07/12/2020 04/11/2020 DM Creatinine yearly 04/11/2021 04/11/2020, 06/02/19 Breast Cancer Share Decision Needed 2021 Breast Cancer screening 2021 Covid-19 Vaccine ( - season) 2023 Influenza (Flu) vaccine (1 o f 1 - Influenza standard series) 01/31/2024 Procedures Procedure Name Priority Date/Time Associated Diagnosis Comments HC HEMOGLOBIN A1C Routine 04/11/2020 1:1 0 PM EST Other specified diabetes mellitus with other specified complication, unspecified whether bed bug exterminator insulin use COMPREHENSIVE METABOLIC PANEL (NON-FASTING) Routine 04/11/2020 1:10 PM EST High risk medication use Rheumatoid arthritis involving multiple sites with positive rheumatoid factor Other specified diabetes mellitus with other specified complication, unspecified whether residential insulin use from Last 3 Months or Most Recently Relevant to Health Maintenance Results * (ABNORMAL) Hemoglobin A1c (04/11/2020 1:10 PM EST) Hemoglobin A1C 7.5(H) 4.3 - 5.6 % [facility] Comment: Reference Range: 4.3 - 5.6% 5.7 - 6.4% - Increased Risk of Developing Diabetes Mellitus >= 6.5% - Consistent with diagnosis of Diabetes Mellitus In the absence of hyperglycemia (i.e. plasma glucose > 200 mg/dL) or classic symptoms of hyperglycemia a repeat measurement of HbA1c should be performed on a separate sample to confirm the diagnosis. Diagnosis and Classification of Diabetes Mellitus, Diabetes Care 2013; 36: Suppl. 1, A57-24 Est Avg Gluc 168 mg/dL [facility] Comment: eAG equivalents for HbA1c percentages: HbA1c(%) ?eAG(mg/dL) 6.0 ?126 6.5 ?140 7.0 ?154 7.5 ?169 8.0 ?183 8.5 ?197 9.0 ?212 9.5 ?226 10.0 ? 240 Limitations: The eAG calculation has not been validated on women, individuals below 18 years old and above 70 years old, and individuals with hemoglobinopathies. Additional resources are available on the ADA website. Christian LOPEZ, Jerman J, Ara R, et al. ??Translating the A1C assay into estimated average glucose values. ??Diabetes Care 2008:31(8):4821-6546. Blood specimen (specimen) 04/11/2020 1:10 PM EST 04/11/2020 1:15 PM EST Narrative Resulting Agency Comment Spec In Lab Zak Lee MD CHEMISTRY ORDERAB LES [facility] [place] [address] * (ABNORMAL) Comprehensive metabolic panel (non-fasting) (04/11/2020 1:10 PM EST) Glucose Lvl 312(H) 65 - 199 mg/dL [facility] Comment:Diabetes: >=200 mg/d L plus symptoms BUN 10 8 - 18 mg/dL [facility] Creatinine 0.81 0.70 - 1.20 mg/dL [facility] Sodium 136 135 - 145 mmol/L [facility] Potassium 3.9 3.5 - 5.0 mmol/L [facility] Comment: Please note: ??Patients with WBC >100,000 may have falsely elevated Potassium levels. ??For accurate Potassium quantification in these patients send serum separator tube (gold top) for subsequent determinations. ??Contact the Clinical Chemistry Laboratory if there are any questions. Chloride 99 98 - 107 mmol/L [facility] CO2 21(L) 22 - 31 mmol/L [facility] Anion Gap 16(H) 5 - 15 mmol/L [facility] Calcium 9.7 8.5 - 10.5 mg/dL [facility] Total Protein 8.1(H) 6.1 - 8.0 gm/dL [facility] Albumin 4.6 3.2 - 5.2 gm/dL [facility] AST 12 0 - 30 unit/L [facility] ALT 24 0 - 30 unit/L [facility] Alk Phos 148(H) 35 - 105 unit/L [facility] Total Bilirubin 0.2 0.2 - 1.3 mg/dL [facility] Estimated GFR 92 >=60 mL/min/1. 73 m?? [facility] Comment: The eGFR was calculated using the CKD-EPI equation. As with all creatinine based estimates of kidney function, eGFR values calculated with the CKD-EPI equation are not accurate in patients with acute kidney failure, extremes of body mass or the acutely ill. [email or web address]/[facility] CITYnkf eGFR 107 >=60 mL/min/1. 73 m?? [facility] Comment: The eGFR was calculated using the CKD-EPI equation. As with all creatinine based estimates of kidney function, eGFR values calculated with the CKD-EPI equation are not accurate in patients with acute kidney failure, extremes of body mass or the acutely ill. [email or web address]/[facility] CITYnkf Blood specimen (specimen) 04/11/2020 1:10 PM EST 04/11/2020 1:15 PM EST Narrative Resulting Agency Comment Spec In Lab Zak Lee MD [place] [address] from Last 3 Months or Most Recently Relevant to Health Maintenance Care Teams Customizer Relationship Specialty Start Date End Date Aneta Perez PA [address] [place] [address] PCP - General Family Medicine 10/17/19
--- OUTSIDE RECORDS SUMMARY | 2023-12-11 00:09 | XMS_ITS | Encounter Summary ---
Author Organization [facility] [address] Care Team Providers Care Email Marketing Processor Name Role Phone Aneta Perez Primary Care Provider [phone] Encounter Details Date Type Department Care Team (Latest Contact Info) Description 03/10/2023 Travel Social History Tobacco Use Types Packs/Day [...] on filedocumented in this encounter Care Teams Email Marketing Processor Relationship Specialty Start Date End Date Aneta Perez PA [address] [place] [address] PCP - General Family Medicine 10/17/19 documented as of this encounter
--- OUTSIDE RECORDS SUMMARY | 2023-12-11 00:09 | XMS_ITS | Encounter Summary ---
Author Organization [facility] Address [facility] [place] [address] Care Team Providers Care Youth Nutritional Monitor Name Role Phone Aneta Perez Primary Care Provider [phone] Reason for Visit * Occupational Therapy (Routine) - Closed Specialty Diagnoses / Procedures Referred By Roberto palomares Referred To Contact Occupational Therapy Diagnoses Surgery follow-up DOS Pending Ulises Parry MD [facility] [address] [place] [address] [address] Rehab [address] [place] [address] Referral ID Status Reason Start Date Expiration Date V isits Requested Visits Authorized [id number] Closed Evaluate and Treat 06/25/2022 06/25/2023 30 30 Encounter Details Date Type Department Care Team (Late st Contact Info) Description 07/30/2022 2:30 PM EST Office Visit Occupational Therapy at [facility] [address] [place] [address] Shyanne Brar OT Pain in finger of left hand Social History Tobacco Use Types Packs/Day Years [...] as of this encounter Miscellaneous Notes * Initial Evaluation - Shyanne Brar OT - 07/30/2022 2:30 PM EST OCCUPATIONAL THERAPY ORTHOTIC EVALUATION Referral Source: Dr. Sohan Christian MD Follow-up: 3/wks Total Treatment time: 60 Minutes Timed Code Treatment Time: 0 minutes OCCUPATIONAL PROFILE: Liset Hager is a 41 y.o. year old Right hand dominant female who underwent L A4 kat reconstruction and revision of FDP tendon transfer. Liset Hager is referred toOupational Therapy for evaluation and treatment to include fabrication of a custom orthosis. Patient presents today accompanied by patient and friend. Date of onset of symptoms: Progressive Date of surgery: 07/22/22 03/27/2020: L FDP tendon transfer from MF to IF performed at the wrist with index lumbricals released (Dr. Parry) 12/05/2019: L IF tenolysis (Dr. Parry) Pertinent History and/or Co-morbidities: 1. 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 Global Mental Function: With gross screening of patient???s global mental functions, patient demonstrates orientation to person, place, time, and situation. Patient???s affect/behavior is appropriateand cooperative today. Disabilities of the Arm, Shoulder, and Hand (DASH): THE DISABILITIES OF THE ARM,SHOULDER AND HAND SCORE (DASH) 07/30/2022 1. Open a tight or new jar Unable 2. Write No difficulty 3. Turn a albert No difficulty 4. Prepare a meal Unable 5. Push open a heavy door Moderate difficulty 6. Place an object on a shelf above your head No difficulty 7. Do heavy on air personality (eg wash morrison, wash floors) Unable 8. Garden or do yard work Unable 9. Make a bed Unable 10. Carry a shopping bag or briefcase Moderate difficulty 11. Carry a heavy object (over 10 lbs) Severe difficulty 12. Change a lightbulb overhead Mild difficulty 13. Wash or blow dry your hair Unable 14. Wash your back Unable 15. Put on a pullover sweater Severe difficulty 16. Use a knife to cut food Unable 17. Recreational activities which require little effort (eg cardplaying, knitting, etc) Unable 18. Recreational activities in which you take some force or impact through your arm, shoulder or hand (eg golf, hammering, tennis, etc) Unable 19. Recreational activities in which you move your arm freely (eg playing frisbee, badTeachernowton, etc) Unable 20. Manage transportation needs (getting from one place to another) No difficulty 21. Sexual activities No difficulty 22. During the past week, to what extent has your arm, shoulder or hand problem interfered with your normal social activities with family, friends, neighbours or groups? Not at all 23. During the past week, were you limited in your work or other regular daily activities as a result of your arm, shoulder or hand problem? Unable 24. Arm, shoulder or hand pain Moderate 25. Arm, shoulder or hand pain when you performed any specific activity Severe 26. Tingling (pins and needles) in your arm, shoulder or hand None 27. Weakness in your arm, shoulder or hand Severe 28. Stiffness in your arm, shoulder or hand Moderate 29. During the past week, how much difficulty have you had sleeping because of the pain in your arm, shoulder or hand? Moderate difficulty 30. I feel less capable, less confident or less useful because of my arm, shoulder or hand problem Agree If you play more than one sport or instrument (or play both), please answer with respect to that activity which is most important to you. Do you currently play a sport or an instrument? No DASH Score 61.67 Standardized measurement of functional limitation related to an upper extremity disability, using 0-100 scale indicating percent of perceived functional impairment. Pain: (Assessed using the Visual Analog Pain Scale) At Rest: 10 With Activity: 12/08 Treatment Today: Orthosis - Aikwx-Nvtr-Gxiwlb Orthotic, Rigid, WO Jts, Custom Fit & Adj (L3690) Educated patient in etiology and biomechanics as related to patient's symptoms Fabricated forearm based dorsal blocking orthosis for digits 2-5, thumb free Instructed in orthosis wear and care real time analyst Range of Motion Exercises: PROM DIP flex/ext PROM PIP flex/ext PROM MP flex/ext PROM composite fist Active scratching across IF with * Have timoteo straps to the MF in place during the exercises and only extend back to the orthosis CLINICAL DECISION MAKING: Liset Hager has a well fitting orthosis post therapy. Liset Hager is able to independently verbalize and demonstrate the recommended home program following instructions today. Liset Hager has fair potential for gains with therapy/home program use. Patientknows to call with any questions or concerns. Short Term Goals (to be met by end of the visit today): Date Goal Met: Today 1. Liset Hager will demonstrate independence with donning and doffing of her orthosis and verbalization of purpose. Goal Status: Meets. Today 2. Liset Hager will be independent with home exercises as evident with demonstration intherapy. Goal Status: Meets PLAN: Pt is planning to f/u with outpatient hand therapy at [facility] ([facility]) Liset Hager participated in the evaluation, collaborated on treatment goals, and agrees to the treatment plan. documented in this encounter Plan of Treatment Scheduled Referrals Name Type Priority Associated Diagnoses Order Schedule Referral to Occupational Therapy Outpatient Referral Routine Surgery follow-up Ordered: 06/25/2022 documented as of this encounter Visit Diagnoses Diagnosis Pain in finger of left hand Pain in limb documented in this encounter Care Teams Youth Nutritional Monitor Relationship Specialty Start Date End Date Aneta Perez PA [address] [place] [id number] PCP - General Family Medicine 10/17/19 documented as of this encounter
--- OUTSIDE RECORDS SUMMARY | 2023-12-11 00:09 | XMS_ITS | Encounter Summary ---
[place] [address] Care Team Providers Care Restoration Officer Name Role Phone Aneta Perez Primary Care Provider [phone] Reason for Visit * Reason Onset Date Comments Medication Problem 01/09/2023 Encounter Details Date Type Department Care Team (Late st Contact Info) Description 01/09/2023 Telephone [place] [phone] Juan Manuel Sapp platform architect Problem Social History Tobacco Use Types Packs/Day Years [...] Encounter - Juan Manuel Sapp RN - 01/09/2023 10:39 AM EDT Call received from Lubna @ [facility] stating she is having problems getting any information on infusions for patient after leaving several messages for Rheumatology staff. Lubna states that she was never advised this patient was changed to [facility] for Rituxan infusions, states she place 5 calls and no one ever called her back. documented in this encounter Plan of Treatment Not on file documented as of this encounter Visit Diagnoses Not on filedocumented in this encounter Care Teams Restoration Officer Relationship Specialty Start Date End Date Aneta Perez PA [address] [place] [phone] PCP - General Family Medicine 10/17/19 documented as of this encounter
--- OUTSIDE RECORDS SUMMARY | 2023-12-11 00:09 | XMS_ITS | Encounter Summary ---
Author Organization [facility] Address [facility] [place] [address] Care Team Providers Care Cold Roll Packer Sheet Iron Name Role Phone Aneta Perez Primary Care Provider [phone] Encounter Details Date Type Department Care Team (Late st Contact Info) Description 09/05/2022 12:00 PM EDT TH Visit (TeleHealth) [place] [address] Zak Lee MD [facility] [place] [address] High risk medication use; Rheumatoid arthritis involving multiple sites with positive rheumatoid factor; Upper back pain; Other secondary osteoarthritis of multiple sites; Rupture of flexor tendon of finger; Cigarette smoker; Chronic pain of both knees; Other specified diabetes mellitus with other specified complication, unspecified whether terminal superintendent insulin use Social History Tobacco Use Types Packs/Day Years [...] as of this encounter Progress Notes * Zak Lee MD - 09/05/2022 12:00 PM EDT Rheumatology Clinic: Dr. Lee 09/05/2022 [id number] This is a TeleHealth telephone visit for Liset Hager in follow-up ofher difficult rheumatoid arthritis. At her most recent visit on 05/21/2022, she felt that she was breaking through early on her every 6-month cycle of Rituxan, 2 infusions each. We therefore had her go to a single infusion every 4 months. She tells me today that that was delayed and it was only until recently that she received that four month single infusion, about a month ago, and by her estimate probably more like 6 months since her last infusion. Unfortunately she feels it was inadequate. In particular, she is having a lot of trouble with her knees lately. They're not warm or swollen, but they are very painful and stiff in the morning and it takes a while for them to loosen up. She has a particular hard time when she goes from sitting to standing position, when they are very painful. She also notices that there is a popping sensation in the right knee. She has some problems with her other joints, but the knee are clearly the biggest issue. She has underlying diabetes, and because of the that and a varietyof other concerns, she does not like going on corticosteroids, although they are generally effective for calming things down. Her sugars have been in reasonable control lately, by her account. She now wonders if it would be possible to get another Rituxan infusion quickly. She would like to get that done up in [place], where she generally has her infusions. We'll will look into whether that is possible and how quickly it can be done. She is also due for lab work and we will have that done in [place] as well. Finally, we decided to get knee x-rays at [place]. However, if it appears that it is going to take a while to get the Rituxan infusion done in [place], we'll probably have her come down here for an in-person visit, get the labs and x-rays here, do a good exam, and possibly inject both knees. She brought up the possibility of getting the next Rituxan infusion down here, but I told her it was extremely unlikely that they would be able to get it done here more quickly than at [place]. In terms of her other medications, at her last visit because of her residual pain and desire to avoid NSAIDs because she had a previous NSAID-induced ulcer, we recommended that she liberalize her useof tramadol. She was only taking one a day with only minor efficacy. She now reports that as we hadsuggested she increased that to 2 tablets twice a day and it does work better. She tolerates that well. At her last visit, her upper back and neck were bothering her. We had x-rays that showed some mild degenerative changes. Fortunately, the back and neck have been relatively quiet lately. She continues to have problems with her left hand related to a ruptured tendon. She has had a number of procedures by Dr. Parry here. After her last visit with him on 08/20/2022, he referred her to Dr. Rudi Berger for another opinion as to where to go from here. It is a difficult situation, obviously. Patient Active Problem List Diagnosis Code ??? Depression F32.A ??? Anxiety F41.9 ??? Rheumatoid arthritis involving multiple sites with positive rheumatoid factor M05.79 ??? High risk medication use Z79.899 ??? Degenerative joint disease involving multiple joints M15.9 ??? Cigarette smoker F17.210 ??? Graves disease E05.00 ??? Tendon dysfunction M67.90 ??? Tendon rupture of wrist S66.919A ??? Other specified diabetes mellitus with other specified complication E13.69 ??? Chronic pain of both knees M25.561, M25.562, G89.29 ??? Surgery follow-up Z09 ??? Pain in finger of left hand M79.645 ??? Rupture of flexor tendon of finger S56.119A Medications 08/20/22 1106 Medication Sig Taking? oxyCODONE (Roxicodone) 5 mg Tablet Take 1 tablet by mouth every 4 hours as needed for Pain. Patient not taking: Reported on 08/20/2022 ondansetron ODT (Zofran-ODT) 4 mg Tablet, Rapid Dissolve Take 1 tablet by mouth every 8 hours as needed for Nausea. traMADoL (Ultram) 50 mg Tablet Take 1-2 tablets by mouth every 8 hours as needed for Pain. acetaminophen (Tylenol) 325 mg Tablet 2 tabs esomeprazole (NexIUM) 40 mg Capsule, Delayed Release(E.C.) Insulin Tresiba FlexTouch U-100 100 unit/mL (3 mL) Insulin Pen LORazepam (Ativan) 1 mg Tablet 1 mg. QUEtiapine (SEROquel) 50 mg Tablet traZODone (Desyrel) 100 mg Tablet Take 200 mg by mouth nightly. amitriptyline (Elavil) 25 mg Tablet atorvastatin (Lipitor) 40 mg Tablet lamoTRIgine (LaMICtal) 200 mg Tablet Take 200 mg by mouth 2 times daily. metFORMIN XR (Glucophage XR) 500 mg Tablet Sustained Release 24 hr Take 500 mg by mouth 2 times daily. 3 tablets at night, 2 tablets in AM, pt reported diclofenac (Voltaren) 1 % Gel Apply 2 g topically 4 times daily. rituximab (RITUXAN IV) Inject into the vein. albuterol (PROVENTIL) 2.5 mg /3 mL (0.083 %) Solution for Nebulization prn amitriptyline (ELAVIL) 100 mg Tablet Take 1 tablet by mouth daily. ONETOUCH ULTRA BLUE TEST STRIP Strip as needed. ONETOUCH ULTRA2 Kit as needed. lamoTRIgine (LAMICTAL) 100 mg Tablet Take 200 mg by mouth 2 times daily. In am lamoTRIgine (LAMICTAL) 25 mg Tablet Take 50 mg by mouth every evening. metFORMIN (GLUCOPHAGE) 500 mg Tablet Take 500 mg by mouth 2 times daily (with meals). Physical Exam: Phone visit only. She sounds well on the phone. Assessment: After a discussion, we decided to move ahead with another Rituxan infusion. Part of theproblem here is timing. When we tried to go to a single infusion every 4 months, that was approved,but it ended up being 6 months before that effusion went in, so she was basically underdosed. We'llsee if we can get her another dose now and then 4 months from now try the single dose experiment again. Meantime we'll check labs and the x-rays at [place]. We may have her come down here for further evaluation and possible knee injections depending on how long it takes to get the next infusion of Rituxan scheduled in [place]. She understood the plan. I'll see her in follow-up in 6 months regardless. Patient recommendations: 1. Single RTX infusion at [place] as soon as can be arranged. 2. Labs and knee x-rays while there. 3. No prednisone. 4. Consider cortisone injections if delay for RTX or if knees don't respond to RTX. 5. Consider adding Arava if ongoing issues. 6. Follow-up in 3 months. Total visit time: 50 minutes. Visit level: 82205. Visit Diagnoses: 1. High risk medication use 2. Rheumatoid arthritis involving multiple sites with positive rheumatoid factor 3. Upper back pain 4. Other secondary osteoarthritis of multiple sites 5. Rupture of flexor tendon of finger 6. Cigarette smoker 7. Chronic pain of both knees documented in this encounter Plan of Treatment Not on file documented as of this encounter Visit Diagnoses Diagnosis High risk medication use Encounter for long-term (current) use of other medications Rheumatoid arthritis involving multiple sites with positive rheumatoid factor Upper back pain Other secondary osteoarthritis of multiple sites Rupture of flexor tendon of finger Cigarette smoker Tobacco use disorder Chronic pain of both knees Other specified diabetes mellitus with other specified complication, unspecified whether terminal superintendent insulin use documented in this encounter Care Teams Cold Roll Packer Sheet Iron Relationship Specialty Start Date End Date Aneta Perez PA [address] [place] [id number] PCP - General Family Medicine 10/17/19 documented as of this encounter
--- OUTSIDE RECORDS SUMMARY | 2023-12-11 00:09 | XMS_ITS | Encounter Summary ---
Author Organization [facility] [place] [address] Care Team Providers Care Domestic Technician Name Role Phone Aneta Perez Primary Care Provider [phone] Encounter Details Date Type Department Care Team (Late st Contact Info) Description 09/05/2022 Telephone [place] [phone] Krissy De Leon RN Social History Tobacco [...] Encounter - Krissy De Leon RN - 09/05/2022 1:[address] Lee: Hi, I would like to schedule her for a rituximab infusion up in [facility]. Would you please contact their infusion suite and see if we can just schedule it or do we need another PA. When was her last infusion up there AND when was the one prior to that? I think we've talked with [facility] up there before. Used to be able to message them, but can't find them in Epic right now. Thanks, Krzysztof documented in this encounter Plan of Treatment Not on file documented as of this encounter Visit Diagnoses Not on filedocumented in this encounter Care Teams Domestic Technician Relationship Specialty Start Date End Date Aneta Perez PA [address] [place] [id number] PCP - General Family Medicine 10/17/19 documented as of this encounter
--- OUTSIDE RECORDS SUMMARY | 2023-12-11 00:09 | XMS_ITS | Encounter Summary ---
Author Organization [facility] [place] [address] Care Team Providers Care Tassel Clipper Name Role Phone Aneta Perez Primary Care Provider [phone] Encounter Details Date Type Department Care Team (Late st Contact Info) Description 09/30/2022 Telephone [place] [phone] Krissy De Leon RN Social History Tobacco [...] Encounter - Krissy De Leon RN - 09/30/2022 2:10 PM EDT TC to the patient to check on how she was and status of infusions from Facility up [place]. Asked the patient to return my call. documented in this encounter Plan of Treatment Not on file documented as of this encounter Visit Diagnoses Not on filedocumented in this encounter Care Teams Tassel Clipper Relationship Specialty Start Date End Date Aneta Perez PA [address] [place] [id number] PCP - General Family Medicine 10/17/19 documented as of this encounter
--- OUTSIDE RECORDS SUMMARY | 2023-12-11 00:09 | XMS_ITS | Encounter Summary ---
[place] [address] Care Team Providers Care Medical Billing Clerk Name Role Phone Aneta Perez Primary Care Provider [phone] Encounter Details Date Type Department Care Team (Late st Contact Info) Description 09/26/2022 Telephone [place] [phone] Krissy De Leon RN Social History Tobacco [...] Encounter - Krissy De Leon RN - 10/08/2022 1:30 PM EDT Images from the original note were not included. Zak Lee MD to [facility] Rheumatology Nurse ?? 9:53 PM Labs look fine. Hgb-A1c is 7.6, though. Knee x-rays normal. That and the fact that the knees are better with the Rituxan makes me think it was the RA causing her knee pain. Thanks, Nurse reviewed with the patient above message from Dr Lee. Patient very thankful for the information. * Telephone Encounter - Krissy De Leon RN - 10/07/2022 10:48 AM EDT TC to patient. Patient is doing okay and had the Rituxan Infusion. States her knees feel much better. We have the results from labs and X-rays from [place]. Patient would like to know if any changes needed based on results. Message sent to Dr Lee to review. * Telephone Encounter - Krissy De Leon RN - 09/26/2022 4:51 PM EDT TC from patient asking for the results of the labs/xrays done [place]. Message sent to Dr Lee/junior legal secretary for results. documented in this encounter Plan of Treatment Not on file documented as of this encounter Visit Diagnoses Not on filedocumented in this encounter Care Teams Medical Billing Clerk Relationship Specialty Start Date End Date Aneta Perez PA [address] [place] [id number] PCP - General Family Medicine 10/17/19 documented as of this encounter
--- OUTSIDE RECORDS SUMMARY | 2023-12-11 00:09 | XMS_ITS | Encounter Summary ---
Author Organization [facility] [place] [address] Care Team Providers Care Senior System Operator Name Role Phone Aneta Perez Primary Care Provider [phone] Encounter Details Date Type Department Care Team (Late st Contact Info) Description 01/14/2023 Notes Only [address] [place] [address] Funmi Parker RN Social History Tobacco Use Types Packs/Day [...] as of this encounter Progress Notes * Funmi Parker RN - 01/14/2023 10:47 AM EDT [facility] Outreach Treatment Note - [place] Babitaabhijit Hager [id number] [phone] Allergies Allergen Reactions Milk Other (See Comments) Upset stomach Amoxicillin Rash Doxycycline Other reaction(s): unknown Egg Nausea Only Naproxen Other (See Comments) Gastric ulcer Nitrofurantoin Other reaction(s): unknown Omeprazole Other reaction(s): unknown Penicillin V Potassium Other reaction(s): rash Penicillins Rash Tylenol W Codeine [Acetaminophen-Codeine] Other (See Comments) Don't know where I am, or what I'm doing 0900-Patient scheduled for Appointment in Oncology Infusion for Rituxan 0945-Patient has not arrived for appointment-Call placed to patient no answer/voicemail left 1050-No return call from patient, [facility] Enrique Corado MD/Zak carrasco, Juan Manuel Juarez RNnotified & patient removed from schedule. documented in this encounter Plan of Treatment Not on file documented as of this encounter Visit Diagnoses Not on filedocumented in this encounter Care Teams Senior System Operator Relationship Specialty Start Date End Date Aneta Perez PA [address] [place] [id number] PCP - General Family Medicine 10/17/19 documented as of this encounter
--- OUTSIDE RECORDS SUMMARY | 2023-12-11 00:09 | XMS_ITS | Encounter Summary ---
Author Organization [place] [address] Care Team Providers Care Utilities Estimator And Drafter Name Role Phone Aneta Perez Primary Care Provider [phone] Encounter Details Date Type Department Care Team (Late st Contact Info) Description 09/04/2022 [place] [phone] Krissy De Leon RN Social History Tobacco [...] Encounter - Krissy De Leon RN - 09/04/2022 3:08 PM EDT 3 months this has gone on. Both knees bothering her, Right is worse than left. They pop when sitting and then when she brings them up in the air. Patient says it feels like its burning, no swelling, no warmth nor redness. No rashes. Denied f/c/n/v/d. Has RA everywhere.Mainly her knees are the issue. Have tried Tramadol, Tylenol, but not able to take Naproxen products. Patient wonder if the Rituxan needs to be done. Had one infusion, but not the othjer 16 days later. Patient also wants to know if she could take other things, like to restart the Celebrex. She was not told she could from the hand surgery MD. Message sent to Dr Lee for review. documented in this encounter Plan of Treatment Not on file documented as of this encounter Visit Diagnoses Not on filedocumented in this encounter Care Teams Utilities Estimator And Drafter Relationship Specialty Start Date End Date Aneta Perez PA [address] [place] [address] PCP - General Family Medicine 10/17/19 documented as of this encounter
--- OUTSIDE RECORDS SUMMARY | 2023-12-11 00:09 | XMS_ITS | Encounter Summary ---
[facility] [place] [address] Care Team Providers Care Pharmaceutical Worker Name Role Phone Aneta Perez Primary Care Provider [phone] Encounter Details Date Type Department Care Team (Latest Contact Info) Description 07/30/2022 Travel Social History Tobacco Use Types Packs/Day [...] on filedocumented in this encounter Care Teams Pharmaceutical Worker Relationship Specialty Start Date End Date Aneta Perez PA [address] [place] [address] PCP - General Family Medicine 10/17/19 documented as of this encounter
--- OUTSIDE RECORDS SUMMARY | 2023-12-11 00:09 | XMS_ITS | Encounter Summary ---
[place] [address] Care Team Providers Care Evening Anchor Name Role Phone Aneta Perez Primary Care Provider [phone] Encounter Details Date Type Department Care Team (Late st Contact Info) Description 09/03/2022 Telephone [place] [phone] Lala Holloway Social History Tobacco Use Types Packs/Day Years [...] on filedocumented in this encounter Care Teams Evening Anchor Relationship Specialty Start Date End Date Aneta Perez PA [address] [place] [id number] PCP - General Family Medicine 10/17/19 documented as of this encounter
--- OUTSIDE RECORDS SUMMARY | 2023-12-11 00:09 | XMS_ITS | Encounter Summary ---
Author Organization [facility] Address [facility] [place] [address] Care Team Providers Care Farm Crops Teacher Name Role Phone Aneta Perez Primary Care Provider [phone] Encounter Details Date Type Department Care Team (Late st Contact Info) Description 07/30/2022 2:30 PM EST Office Visit Plastic Surgery at [facility] [address] [place] [address] Ulises Parry MD [facility] [place] [address] H/O hand surgery Social History Tobacco Use Types Packs/Day Years [...] as of this encounter Progress Notes * Lala Holloway - 07/30/2022 2:30 PM EST Plastic Surgery Post Op Note Provider: Ulises Parry MD Reason for visit: F/U status post procedure; coordinated with OT--Maria T Date of surgery: 07/22/22 Procedure(s): kat reconstruction, redo FTP (Sohan) Complications: None reported Date of surgery: 03/27/2020 Procedure(s): Left FDP tendon transfer from middle to index finger performed at wrist.??Index lumbricals released with Dr. Parry/Zamudio-Gilbert Complications: None reported ?? Date of surgery: 12/05/2019 Procedure(s): Left index finger tenolysis. Complications: None reported HPI: Pt reports she had has more pain after this surgery and request more narcotic pain medication. Examination: LMP 07/02/2022 (Approximate) Comment: denies chance of being Patient is alert, conversant, comfortable, ambulating Splint removed. Incision: CDI, healing well. No collection, no erythema, no evidence of cellulitis. Long finger in more flexion that index, minimal motion at index limited by pain. Impression: Liset Hager is a 41 y.o. female who was seen today for follow- up after the above procedure. Please see the operative note for details. She is recovering, she cannot take NSIADs due to her hx of gastric ulcers. Plan: 10 more oxycodone OT for AAROM Follow up: 3 weeks I, Lala Holloway, have performed the documentation for this encounter in the presence of and acting as a scribe for Ulises Parry MD. documented in this encounter Plan of Treatment Not on file documented as of this encounter Visit Diagnoses Diagnosis H/O hand surgery Personal history of surgery to other organs documented in this encounter Care Teams Farm Crops Teacher Relationship Specialty Start Date End Date Aneta Perez PA [address] [place] [address] PCP - General Family Medicine 10/17/19 documented as of this encounter
--- OUTSIDE RECORDS SUMMARY | 2023-12-11 00:09 | XMS_ITS | Encounter Summary ---
[place] [address] Care Team Providers Care Nuclear Weapons Mechanical Specialist Name Role Phone Aneta Perez Primary Care Provider [phone] Encounter Details Date Type Department Care Team (Late st Contact Info) Description 11/25/2022 Telephone [place] [phone] Krissy De Leon RN Social History Tobacco [...] encounter Miscellaneous Notes * Telephone Encounter - Tamara Domingo - 12/04/2022 11:16 AM EDT Reaching out to [place] for last infusion note. Will send to [facility] at [phone] once I get it to get it scheduled at [facility] for pt. * Telephone Encounter - Krissy De Leon RN - 11/25/2022 4:20 PM EDT Call from [facility] Infusion asking for the dates of the last Infusion of Rituxam/Ruxience and if a PA is required? Has infusions every 4 months? Perla asking for call back with the information at [phone]. Message sent to Tamara Domingo, Pay Clerk who handles infusions. documented in this encounter Plan of Treatment Not on file documented as of this encounter Visit Diagnoses Not on filedocumented in this encounter Care Teams Nuclear Weapons Mechanical Specialist Relationship Specialty Start Date End Date Aneta Perez PA [address] [place] [address] PCP - General Family Medicine 10/17/19 documented as of this encounter
--- OUTSIDE RECORDS SUMMARY | 2023-12-11 00:10 | XMS_ITS | Encounter Summary ---
Author Organization [facility] Address [facility] [place] [address] Care Team Providers Care Research Attorney Name Role Phone Aneta Perez Primary Care Provider [phone] Reason for Referral * Occupational Therapy (Routine) - Closed Specialty Diagnoses / Procedures Referred By Roberto palomares Referred To Contact Occupational Therapy Diagnoses Surgery follow-up DOS Pending Ulises Parry MD [facility] [address] [facility] [address] [place] [address] Referral ID Status Reason Start Date Expiration Date V isits Requested Visits Authorized [id number] Closed Evaluate and Treat 06/25/2022 06/25/2023 30 30 Reason for Visit * Consultation (Routine) - Closed Specialty Diagnoses / Procedures Referred By Roberto palomares Referred To Contact Plastic Surgery Diagnoses Rheumatoid arthritis involving multiple sites with positive rheumatoid factor Rupture of extensor tendon of hand, unspecified laterality, sequela LeeZak MD [facility] [place] [address] Ulises Parry MD [facility] [place] [address] Referral ID Status Reason Start Date Expiration Date V isits Requested Visits Authorized [id number] Closed Consult, Test & Treat 05/26/2022 05/26/2023 1 1 Encounter Details Date Type Department Care Team (Late st Contact Info) Description 06/25/2022 1:30 PM EST Office Visit Plastic Surgery at [address] [place] [address] Ulises Parry MD [facility] [place] [address] Surgery follow-up Social History Tobacco Use Types Packs/Day Years Used Date Smoking Tobacco: Every Day Cigarettes Smokeless Tobacco: Never Alcohol Use Standard Drinks/Week Comments Yes 3 (1 standard drink = 0.6 oz pur e alcohol) Sex and Gender Information Value Date Recorded Sex Assigned at Not on file Gender Identity Not on file Sexual Orientation Not on file documented as of this encounter Patient Instructions * Patient Instructions* Lubna Edward, Ayah - 06/25/2022 1:30 PM EST Preoperative Instructions You have been scheduled to have plast a mammogram with in one year prior to your upcoming breast reduction surgery as we advise not having one for at least six months after surgery.ic surgery. The instructions below are specific to your procedure. If you are a smoker, we ask that you stop at least 2 months prior to your surgical date and remain nicotine free for at least a month after surgery. Smoking can impair healing and increase your chance of infection. One Month prior to Surgery Schedule a pre-operative physical with your primary care doctor YOU DO NOT NEED TO STOP any aspirin or ibuprofen products before your surgery. If you need medication for pain, you may take Tylenol or extra strength Tylenol during this two week period. Medication Specific Instructions One Week prior to Surgery Do not take any Aspirin or aspirin containing products for the 1 week leading up to surgery. You may resume taking 48 hours after surgery. Please call if you feel ill, have cold or fever, have a rash or breaks in the skin near your surgical site. Stay hydrated. Avoid alcohol and recreational drugs Three Days before Surgery Do not shave near your surgical site One Day before Surgery Hand Surgery - Scrub your hand with an antibacterial soap for several minutes the night before and morning of surgery. Trim your fingernails and scrub them with a nail brush. DO NOT wear any rings, nail albanian or artifical nails. The Same Day Surgery Team will call you the business day before your surgery to give you instructions specific to your procedure and your surgical time. Generally, you will be asked not to eat any solids after midnight. You are allowed clear liquids (water, lowell henrik, apple juice, black coffee andplain tea) until 2 hours prior to your surgery. Day of Surgery A rail car driver is required at time of discharge. If you are a Same Day procedure and do not have a driveryour surgery will be canceled. DO NOT wear any jewelry, makeup or artificial nails the day of surgery. DO NOT apply any lotions, powders or deodorants on or near the surgical site the day of surgery. Do wear comfortable, loose fitting clothes. Anesthesia will meet with you the morning of surgery. They will perform an assessment and review your history with you. Contact Information: During regular office hours (Thursday- Thursday, non-holiday 8:00 am- 5:00 pm) For an appointment or insurance questions For questions pertaining to your surgical date [phone] For nursing related questions [phone] On weekends, holidays or after office hours: Call and ask the grinder setup operator to page the Plastic Surgery Resident fabrication engineer. documented in this encounter Progress Notes * Do Esposito H - 06/25/2022 1:30 PM EST Plastic Surgery Follow Up Note Provider: Ulises Parry M.D. Reason for visit: F/U status post procedure Date of surgery: 10/02/20 Procedure(s): A1 kat [...] tenolysis. Complications: None reported ?? HPI: Pt returns to clinic for a follow up visit. She would like to consider surgery for her right hand. Patient reports that she's been told that her hand contractures are from the arthritis and it blew the tendons. On a previous surgery, it was performed while she was semi-conscious. Patient genaro like to proceed again with surgery on her left hand and then latter move forward with surgery on the right. Examination Patient is alert, conversant, comfortable, ambulating R wrist: PL harvest site healing well, mild hand swelling from tight PRACHI at wrist. L hand: Incision: CDI, healing well. Scar band relieved by z-plasty. No bowstringing, no PIP or DIPactive flexion, good MP flexion. Fingertips warm/pink/grossly intact sensation. No collection, no erythema, no evidence of cellulitis. No AROM at PIP, PROM near full. Impression: Liset Hager is a 41 y.o. 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 Plan: Schedule surgery for left hand: exploration and tenolysis possible revision of FDP index to long plan to do under MAC with local tumescent technique. Follow with surgery on right hand 3-6 months Surgical Grid Surgeon: Sohan Duration: 60 min Timeframe: elective (mid-July) Procedure: kat reconstruction, redo FTP CPT: 07032, 99633 Surgical site: hand Side: left Anesthesia: Mac Follow up: 7 Days THHF: Y/N: yes H&P: Yes Implants needed: tendon harvester OT needed at post op visit: yes hand base splint No covid testing ?? I, Lala Holloway, have performed the documentation [...] surgery documented in this encounter Care Teams Research Attorney Relationship Specialty Start Date End Date Aneta Perez PA [address] [place] [address] PCP - General Family Medicine 10/17/19 documented as of this encounter
--- OUTSIDE RECORDS SUMMARY | 2023-12-11 00:10 | XMS_ITS | Encounter Summary ---
Author Organization [facility] [place] [address] Care Team Providers Care Waterside Worker Name Role Phone Aneta Perez Primary Care Provider [phone] Encounter Details Date Type Department Care Team (Late st Contact Info) Description 07/31/2020 [place] [phone] Zak Lee MD [facility] DR RHEUMAT[place]Y [place] [address] Social History Tobacco Use Types Packs/Day Years Used Date Smoking Tobacco: Every Day Cigarettes Smokeless Tobacco: Never Sex and Gender Information Value Date Recorded Sex Assigned at Not on file Gender Identity Not on file Sexual Orientation Not on file documented as of this encounter Miscellaneous Notes * Telephone Encounter - Zak Lee MD - 07/31/2020 2:42 PM EST Spoke with Sylwia Jackson MD, ER doctor at [facility], . Patient presented with a lot of pain, especially hands, back, and knee. RA apparently out of control, but also has pain from secondary damage. Can't take NDAIDs due to gastric ulcer. Has been taking a lot of Tylenol, but blood level low in ED. Was positive for salicylates, surprisingly. Has had worsening depression, some suicidal thoughts, but no plan. Pysch risk cleared by Dr. Jackson.Pt sees [address] Jackson gave her a few tramadol for pain, which patient accepted without complaint. She has already taken one and is waiting on effect. She saw Dr. Parry in plastic surgery here on 07/25/2020. He referred her to the pain clinic. No appt on record yet. He also noted patient's frustration, depression, and anxiety, and her history of [facility] admit for attempted suicide. Last round of Rituxan in [place] In April, so at least 4 months out. Currently, hands bothering, low back, right knee cap pops. ? How much is RA. After discussion, she agreed to a follow-up tomorrow at [address] [facility]. I sent in Rx for tramadol, #30, 1 refill to [facility] in [place]. Further recommendations after visit tomorrow. Will probably switch Rituxan to single infusion every4 months. She would be due around now. Consider adding leflunomide as well if most of this current pain is related to active RA.. 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 We'll discuss steroid bridging tomorrow. She understood the plan. documented in this encounter Plan of Treatment Not on file documented as of this encounter Visit Diagnoses Diagnosis Other secondary osteoarthritis of multiple sites Rheumatoid arthritis involving multiple sites with positive rheumatoid factor documented in this encounter Care Teams Waterside Worker Relationship Specialty Start Date End Date Aneta Perez PA [address] [place] [address] PCP - General Family Medicine 10/17/19 documented as of this encounter
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
--- OUTSIDE RECORDS SUMMARY | 2023-12-11 00:10 | XMS_ITS | Encounter Summary ---
Author Organization [facility] Address [facility] [place] [address] Care Team Providers Care Energy Manager Name Role Phone Aneta Perez Primary Care Provider [phone] Encounter Details Date Type Department Care Team (Late st Contact Info) Description 10/03/2020 10:30 AM EDT Office Visit Plastic Surgery at [facility] [address] [place] [address] Ulises Parry MD [facility] [place] [address] Surgery follow-up Social History Tobacco Use Types [...] Progress Notes * Ulises Parry MD - 10/03/2020 10:30 AM EDT Plastic Surgery Post Op Note Provider: Ulises Parry M.D. Reason for visit: F/U status post procedure Date of surgery: 10/02/20 Procedure(s): A1 kat reconstructed with PL tendon from R wrist. Dense scar tissue in palm released. Z-plasty performed. Complications: None reported Reason for visit: F/U status post procedure Date of surgery: 03/27/2020 Procedure(s): Left FDP tendon transfer from middle to index finger performed at wrist.??Index lumbricals released with Dr. Parry/Rachel Complications: None reported ?? Reason for visit: F/U status post procedure Date of surgery: 12/05/2019 Procedure(s): Left index finger tenolysis. Complications: None reported ?? HPI: Pt returns to clinic for her first post operative follow up. Primarily here to have her dressings removed and begin working with OT. Examination: Patient is alert, conversant, comfortable, ambulating R wrist: PL harvest site healing well, mild hand swelling from tight PRACHI at wrist. L hand: Incision: CDI, healing well. Scar band relieved by z-plasty. Some paraesthesias at tip of index and long fingers. Fingertips warm/pink/grossly intact sensation. No collection, no erythema, no evidence of cellulitis. Impression: Liset Hager is a 40 y.o. female who was seen today for follow- up after the above procedure. Please see the operative note for details. Healing well, no signs or concerns for infection. Plan: OT L hand based splint to allow PIP ROM, MP at neutral. May begin AROM May washing hands daily. Follow up 3-4 weeks coordinate with OT. IDo, have performed the documentation for this encounter in the presence of and acting as a scribe for Ulises Parry MD. documented in this encounter Plan of Treatment Not on file documented as of this encounter Visit Diagnoses Diagnosis Surgery follow-up Follow-up examination, following unspecified surgery documented in this encounter Care Teams Energy Manager Relationship Specialty Start Date End Date Aneta Perez PA [address] [place] [id number] PCP - General Family Medicine 10/17/19 documented as of this encounter
--- OUTSIDE RECORDS SUMMARY | 2023-12-11 00:10 | XMS_ITS | Encounter Summary ---
Author Organization [facility] [place] [address] Care Team Providers Care Practice Performance Manager Name Role Phone Aneta Perez Primary Care Provider [phone] Encounter Details Date Type Department Care Team (Late st Contact Info) Description 02/11/2021 Telephone [place] [phone] Juan Manuel Sapp RN Social History Tobacco [...] Encounter - Juan Manuel Sapp RN - 02/11/2021 10:51 AM EDT Call received from [facility] asking if Liset can start Celebrex. RTC and spoke with Liset, she states she is in a [facility] Institution. Liset states her and Dr. Leespjarrett about the Celebrex and reports that the ulcer is healed and she is taking Prilosec 20 mg daily. I advised I will check with Dr. Lee and get back to her. Liset sates if ordered it will need to be faxed to facility @ [phone]. Rx Faxed REQUESTED. documented in this encounter Plan of Treatment Not on file documented as of this encounter Visit Diagnoses Not on filedocumented in this encounter Care Teams Practice Performance Manager Relationship Specialty Start Date End Date Aneta Perez PA [address] [place] [id number] PCP - General Family Medicine 10/17/19 documented as of this encounter
--- OUTSIDE RECORDS SUMMARY | 2023-12-11 00:10 | XMS_ITS | Encounter Summary ---
Author Organization [facility] [place] [address] Care Team Providers Care Machine Fastener Name Role Phone Aneta Perez Primary Care Provider Reason for Visit * Reason Onset Date Comments Medication Refill 05/22/2021 Encounter Details Date Type Department Care Team (Late st Contact Info) Description 05/22/2021 [place] [address] Zak Lee MD [facility] [place] [address] High risk medication use; Infusion reaction, subsequent encounter; Drug-induced nausea and vomiting Social History Tobacco Use Types Packs/Day Years [...] for long-term (current) use of other medications Infusion reaction, subsequent encounter Drug-induced nausea and vomiting Nausea with vomiting documented in this encounter Care Teams Machine Fastener Relationship Specialty Start Date End Date Aneta Perez PA [address] [place] [phone] PCP - General Family Medicine 10/17/19 documented as of this encounter
--- OUTSIDE RECORDS SUMMARY | 2023-12-11 00:10 | XMS_ITS | Encounter Summary ---
[place] [address] Care Team Providers Care Environmental Maintenance Worker Name Role Phone Aneta Perez Primary Care Provider [phone] Encounter Details Date Type Department Care Team (Late st Contact Info) Description 05/23/2022 5:05 PM EST Ancillary Procedure [place] [address] Aneta Perez PA [address] [place] [phone] Social History Tobacco Use Types Packs/Day Years [...] on file documented as of this encounter Procedures Procedure Name Priority Date/Time Associated Diagnosis Comments FILM LIBRARY STORAGE ONLY DX SPINE Routine 05/23/2022 5:00 PM EST documented in this encounter Results * Film Library- Storage Only DX Spine (05/23/2022 5:00 PM EST) Narrative RAD - 05/23/2022 5:00 PM EST This exam is auto-finalizing. It's purpose is for storage only. Aneta [place] [facility]RARY ORD ERABLES [facility] [place], [place] documented in this encounter Visit Diagnoses Not on filedocumented in this encounter Care Teams Environmental Maintenance Worker Relationship Specialty Start Date End Date Aneta Perez PA [address] [place] [id number] PCP - General Family Medicine 10/17/19 documented as of this encounter
--- OUTSIDE RECORDS SUMMARY | 2023-12-11 00:10 | XMS_ITS | Encounter Summary ---
Author Organization [facility] [place] [address] Care Team Providers Care Nail Kegger Name Role Phone Aneta Perez Primary Care Provider [phone] Reason for Visit * Auth/Cert (Routine) Specialty Diagnoses / Procedures Referred By Roberto t Referred To Contact Diagnoses Encounter for follow-up examination after completed treatment for conditions other than malignant neoplasm tendon/flexor rupture Procedures PRO TRANSPLANT PALM TENDON PRO RELEASE MUSCLES OF HAND TRANSFER OR TRANSPLANT TENDON, PALMAR, W/O FREE TENDON GRAFT, EACH (WRVU 7.89) RELEASE, INTRINSIC MUSCLES OF HAND, EACH MUSCLE (WRVU 5.5) Ulises Parry MD [facility] [place] [address] [facility] Referral ID Status Reason Start Date Expiration Date Visits Re quested Visits Authorized [id number] 1 1 Encounter Details Date Type Department Care Team (Late st Contact Info) Description 07/22/2022 10:40 AM EST Anesthesia Event [place] [address] Haley Taylor MD [facility] [address] Nelsy Sanches CRNA [facility] [address] Anesthesia Record Procedure Summary Procedure Name Responsible Anesthesiologist Anesthesia Start Time Anesthesia Stop Time TRANSFER OR TRANSPLANT TENDON, PALMAR, W/O FREE TENDON GRAFT, EACH (WRVU 7.89) (Left: Hand) Haley Taylor MD 07/22/22 1040 07/22/22 1221 Events Date Time Event Comment 07/22/2022 1002 1040 Start 1043 AN Verify 1043 An Start Data 1049 Anesthesia Ready 1058 Procedure Start 1058 Skin Incision 1203 Break/Relief In I assumed ca re for Break Relief before which we: 1. Identified the patient 2. Identified the responsible provider(s) 3. Reviewed the pertinent medical history 4. Discussed the surgical plan and course 5. Reviewed intra-op anesthesia management and issues during anesthesia 6. Set expectations for the relief (and/or post-procedure) period 7. Allowed opportunity for questions and acknowledgement of understanding Susana Castañeda CRNA 1221 an stop data 1221 Recovery or ICU Handoff Rosa ent care was transferred to the destination unit staff after review of the patient's medical history, current anesthetic/surgical status and plan, according to the Provider Handoff Checklist. 1221 Stop Meds Name Total Midazolam 4 mg fentaNYL 100 mcg IV Lidocaine 50 mg Propofol 250 mg Propofol INF 323.85 mg Dexmedetomidine INF 30.9 mcg Dexmedetomidine 12 mcg Ketamine 10 mg/mL 10 mg Dexamethasone 4 mg Ondansetron 4 mg lactated ringers infusion 0 mL * Agents Name O2 Air N2O O2 Auxiliary Flowmeter 1 * Blood No blood administrations on file. Lines, Drains, and Airways Type Details Placement Removal Incision 07/22/22; 1104; Left ; hand 07/22/22 1104 by Yudelka Escobar RN (RETIRED) Peripheral IV Line - Single Lumen 07/22/22; 1000; metacarpal vein (top of hand), right; [id number] catheter system; 22 gauge; Ashkan Caballero RN; intradermal injection, tolerated well, appears comfortable; 07/22/22; 1311 07/22/22 1000 by Kenia Caballero RN 07/22/22 1311 by Sandrine Ritchie RN documented in this encounter Social History Tobacco Use Types Packs/Day Years [...] on file documented as of this encounter OR Notes * Anesthesia Postprocedure Evaluation - Haley Taylor MD - 07/22/2022 3:44 PM EST Department of Anesthesiology Post-procedure Note Patient: Liset Hager Procedure Summary Date: 07/22/22 Room / Location: [address] Anesthesia Start: 1040 Anesthesia Stop: 1221 Procedures: TRANSFER OR TRANSPLANT TENDON, PALMAR, W/O FREE TENDON GRAFT, EACH (WRVU 7.89) (Left: Hand) RELEASE, INTRINSIC MUSCLES OF HAND, EACH MUSCLE (WRVU 5.5) (Left: Hand) Diagnosis: Surgery follow-up (tendon/flexor rupture) Surgeons: Ulises Parry MD Responsible Provider: Haley Taylor MD Anesthesia Type: MAC ASA Status: 2 All Anesthesia Providers: Anesthesiologist: Haley Taylor MD SENIOR DESIGN ENGINEER: Nelsy Sanches CRNA Vitals Value Taken Time BP 109/63 07/22/22 1300 Temp 36.5 ??C (97.7 ??F) 07/22/22 1224 Pulse 90 07/22/22 1305 Resp 16 07/22/22 1300 SpO2 95 % 07/22/22 1305 Pain Level 0 07/22/22 1300 Vitals shown include unvalidated device data. Patient Location: PACU/[facility] Level of Consciousness: Awake and Alert Pain Management: Satisfactory Analgesia PONV: None Cardiovascular Status: At Baseline Respiratory Status: Room Air and Stable Respiratory Status Postoperative Fluid Status: Intravascular EUvolemia Possible Anesthetic Complications: NONE apparent at time of evaluation Final Primary Anesthesia Type: MAC (The anesthetic type performed was the same as planned.) Comments: Ms. Hager tolerated the procedure well and without complication. VSS. * Anesthesia Preprocedure Evaluation - Haley Taylor MD - 07/22/2022 9:47 AM EST Pre-Anesthesia Evaluation for: Liset Hager a 41 y.o. female. Procedure(s): TRANSFER OR TRANSPLANT TENDON, PALMAR, W/O FREE TENDON GRAFT, EACH (WRVU 7.89) RELEASE, INTRINSIC MUSCLES OF HAND, EACH MUSCLE (WRVU 5.5) Patient Active Problem List Diagnosis Date Noted ??? Rupture of flexor tendon of finger 05/26/2022 ??? Pain in finger of left hand 10/03/2020 ??? Surgery follow-up 09/06/2020 ??? Other specified diabetes mellitus with other specified complication 08/18/2020 ??? Chronic pain of both knees 08/18/2020 ??? Tendon rupture of wrist 02/16/2020 ??? Tendon dysfunction 10/06/2019 ??? Rheumatoid arthritis involving multiple sites with positive rheumatoid factor 06/02/2018 ??? High risk medication use 06/02/2018 ??? Degenerative joint disease involving multiple joints 06/02/2018 ??? Cigarette smoker 06/02/2018 ??? Graves disease 06/02/2018 ??? Depression 01/04/2011 ??? Anxiety 01/04/2011 History reviewed. No pertinent past medical history. Past Surgical History: Procedure Laterality Date ? ? PRO ADJ TISS XFER HEAD, FAC, HAND <10SQCM Left 03/26/2020 ADJ.TISSUE TRANSFER, REARRANGEMENT, 10SQ.CM OR LESS, HANDS (WRVU 8.6) performed by Monique Parry MD at [facility] ? ? PRO ADJ TISS XFER HEAD, FAC, HAND <10SQCM Left 10/01/2020 ADJ.TISSUE TRANSFER, REARRANGEMENT, 10SQ.CM OR LESS, HANDS (WRVU 8.6) performed by Monique Parry MD at [facility] ??? PRO HAND TENDON KETTY RECONST, GRAFT Left 10/01/2020 RECONSTRUCT TENDON KETTY, EA TENDON, W/ TENDON OR FASCIAL GRAFT (WRVU 7.31) performed by Ulises Parry MD at [facility] ? ? PRO TENOLYSIS FLEX TENDON, PALM & FINGER, EA Left 12/05/2019 TENOLYSIS, FLEXOR TENDON, PALM AND FINGER EACH (WRVU 9.75) performed by Ulises Parry MD at [facility] ??? PRO TENOLYSIS, FLEX TENDON, PALM/FINGER, EA Left 03/26/2020 TENOLYSIS, FLEXOR TENDON, PALM OR FINGER, EACH (WRVU 5.16) performed by Ulises Parry MD at [facility] ??? PRO TRANSPLANT FOREARM/WRIST TENDON Left 03/26/2020 TENDON TRANSPLANT OR TRANSFER, FOREARM &,OR WRIST, SINGLE; EA (WRVU 8.08) performed by Ulises Parry MD at [facility] Social History Tobacco Use ??? Smoking status: Every Day Packs/day: 1.00 Years: 15.00 Pack years: 15.00 Types: Cigarettes ??? Smokeless tobacco: Never Substance Use Topics ??? Alcohol use: Not Currently Social History Substance and Sexual Activity Drug Use Not Currently Allergies Allergen Reactions ??? Milk Other (See Comments) Upset stomach ??? Amoxicillin Rash ??? Doxycycline Other reaction(s): unknown ??? Egg Nausea Only ??? Naproxen Other (See Comments) Gastric ulcer ??? Nitrofurantoin Other reaction(s): unknown ??? Omeprazole Other reaction(s): unknown ??? Penicillin V Potassium Other reaction(s): rash ??? Penicillins Rash ??? Tylenol W Codeine [Acetaminophen-Codeine] Other (See Comments) Don't know where I am, or what I'm doing Medications: MAR and/or home medications have been reviewed. Physical Exam: Preprocedure Vitals Current as of 07/22/22 0947 No BP, pulse, respiration, SpO2, or temperature recorded. Height: 157.5 cm (5' 2) (07/22/22) Weight: 63.5 kg (140 lb) (07/22/22) BMI: 25.6 IBW: 50.1 kg (110 lb 7.8 oz) Airway Assessment: Mallampati: II TM distance: >3 FB Neck ROM: full Cardiovascular Assessment: system normal Pulmonary Assessment: pulmonary exam normal Dental Assessment: - normal exam Misc Assessment: Patient is wearing No contact(s). IV access: Peripheral line Last Filed Perioperative Cognitive Screening None Anesthesia Plan: ASA 2 MAC, with a(n) intravenous induction Ms. Hager is a 41 year old female with PMhx of RA, tobacco abuse, anxiety, depression, Graves disease, and tendon/flexor rupture scheduled for tendon transfer. Allergies reviewed. Plan for preoperative Tylenol, MAC. Risks were discussed at length, and all questions and concerns were addressed. Consent was obtained, and the appropriate paperwork was placed in the patient's chart. Region - Other Informed Consent: Anesthetic plan and risks discussed with patient. Plan discussed with SENIOR DESIGN ENGINEER. Anesthesia Screening documented in this encounter Plan of Treatment Not on file documented as of this encounter Visit Diagnoses Not on filedocumented in this encounter Administered Medications Inactive Administered Medications - up to 3 most recent administrations Medication Order MAR Action Action Date Dose Rate Site dexAMETHasone (Decadron) injection Intravenous, PRN, Starting on Thu07/22/22 at 1104, Until Thu07/22/22 at 1221, Anesthesia Intra-op, Routine Given 07/22/2022 11:04 AM EST 4 mg dexmedeTOMIDine (Precedex) (4 mcg/mL) bolus injection (Anesthsia) Intravenous, PRN, Starting on Thu07/22/22 at 1058, Until Thu07/22/22 at 1221, Anesthesia Intra-op, Routine Given 07/22/2022 11:17 AM EST 8 mcg Given 07/22/2022 10:58 AM EST 4 mcg dexmedeTOMIDine (Precedex) (4 mcg/mL) in sodium chloride 0.9% 50 mL infusion Intravenous, CONTINUOUS PRN, Starting on Thu07/22/22 at 1046, Until Thu07/22/22 at 1221, Anesthesia Intra-op New Bag 07/22/2022 10:46 AM EST 0.4 mcg/kg/hr 6.35 mL/hr fentaNYL (pf) (50 mcg/mL) multi-dose injection Intravenous, PRN, Starting on Thu07/22/22 at 1045, Until Thu07/22/22 at 1221, Anesthesia Intra-op, Routine Given 07/22/2022 11:15 AM EST 25 mcg Given 07/22/2022 11:04 AM EST 25 mcg Given 07/22/2022 10:45 AM EST 50 mcg ketamine (Ketalar) (10 mg/mL) IV bolus injection (Anesthesia) Intravenous, PRN, Starting on Thu07/22/22 at 1149, Until Thu07/22/22 at 1221, Anesthesia Intra-op Given 07/22/2022 11:49 AM EST 10 mg lactated ringers infusion 1,000 mL, at 100 mL/hr, Intravenous, CONTINUOUS, Starting on Thu07/22/22 at 0945, Until Thu07/22/22 at 1310, Day of Surgery (Day of Procedure) New Bag 07/22/2022 10:43 AM EST lidocaine (pf) (Xylocaine) (20 mg/mL) 2% injection syringe Intravenous, PRN, Starting on Thu07/22/22 at 1046, Until Thu07/22/22 at 1221, Anesthesia Intra-op, Routine Given 07/22/2022 10:46 AM EST 50 mg midazolam (pf) (Versed) (1 mg/mL) multi-dose injection Intravenous, PRN, Starting on Thu07/22/22 at 1043, Until Thu07/22/22 at 1221, Anesthesia Intra-op, Routine Given 07/22/2022 11:47 AM EST 2 mg Given 07/22/2022 10:43 AM EST 2 mg ondansetron (pf) (Zofran) (2 mg/mL) injection Intravenous, PRN, Starting on Thu07/22/22 at 1217, Until Thu07/22/22 at 1221, Anesthesia Intra-op, Routine Given 07/22/2022 12:17 PM EST 4 mg propofoL (Diprivan) (10 mg/mL) infusion Intravenous, CONTINUOUS PRN, Starting on Thu07/22/22 at 1117, Until Thu07/22/22 at 1221, Anesthesia Intra-op, Routine Restarted 07/22/2022 11:47 AM EST 100 mcg/kg/min 38.1 mL/hr New Bag 07/22/2022 11:17 AM EST 100 mcg/kg/min 38.1 mL/ hr propofoL (Diprivan) 10 mg/mL bolus injection (Anesthesia) Intravenous, PRN, Starting on Thu07/22/22 at 1046, Until Thu07/22/22 at 1221, Anesthesia Intra-op Given 07/22/2022 11:17 AM EST 50 mg Given 07/22/2022 10:58 AM EST 50 mg Given 07/22/2022 10:56 AM EST 50 mg documented in this encounter Care Teams Nail Kegger Relationship Specialty Start Date End Date Aneta Perez PA [address] [place] [id number] PCP - General Family Medicine 10/17/19 documented as of this encounter
--- OUTSIDE RECORDS SUMMARY | 2023-12-11 00:10 | XMS_ITS | Encounter Summary ---
Author Organization [facility] [place] [address] Care Team Providers Care Kennel Worker Name Role Phone Aneta Perez Primary Care Provider [phone] Encounter Details Date Type Department Care Team (Late st Contact Info) Description 02/22/2021 [place] [address] Zak Lee MD [facility] [place] [address] Rheumatoid arthritis involving multiple sites with positive rheumatoid factor Social History Tobacco Use Types Packs/Day Years [...] factor documented in this encounter Care Teams Kennel Worker Relationship Specialty Start Date End Date Aneta Perez PA [address] [place] [id number] PCP - General Family Medicine 10/17/19 documented as of this encounter
--- OUTSIDE RECORDS SUMMARY | 2023-12-11 00:10 | XMS_ITS | Encounter Summary ---
Author Organization [facility] [place] [address] Care Team Providers Care University Librarian Name Role Phone Aneta Perez Primary Care Provider Encounter Details Date Type Department Care Team (Late st Contact Info) Description 02/11/2021 Orders [place] [address] Zak Lee MD [facility] [place] [address] Rheumatoid arthritis involving multiple sites with positive [...] factor documented in this encounter Care Teams University Librarian Relationship Specialty Start Date End Date Aneta Perez PA [address] [place] [address] PCP - General Family Medicine 10/17/19 documented as of this encounter
--- OUTSIDE RECORDS SUMMARY | 2023-12-11 00:10 | XMS_ITS | Encounter Summary ---
Author Organization [facility] [place] [address] Care Team Providers Care Climatology Teacher Name Role Phone Aneta Perez Primary Care Provider [phone] Reason for Visit * Reason Onset Date Comments Medication Refill 07/17/2022 Encounter Details Date Type Department Care Team (Late st Contact Info) Description 07/17/2022 Refill [place] [address] Zak Lee MD [facility] DR [place] [address] High risk medication use; Infusion reaction, subsequent [...] vomiting documented in this encounter Care Teams Climatology Teacher Relationship Specialty Start Date End Date Aneta Perez PA [address] [place] [id number] PCP - General Family Medicine 10/17/19 documented as of this encounter
--- OUTSIDE RECORDS SUMMARY | 2023-12-11 00:10 | XMS_ITS | Encounter Summary ---
Author Organization [facility] [place] [address] Care Team Providers Care Precinct Commanding Officer Name Role Phone Aneta Perez Primary Care Provider [phone] Encounter Details Date Type Department Care Team (Late st Contact Info) Description 10/08/2020 Telephone [place] [phone] Do Esposito Social History Tobacco Use Types Packs/Day Years [...] encounter Miscellaneous Notes * Telephone Encounter - Do Esposito - 10/08/2020 3:06 PM EDT Faxed referral to [facility] for patient to have OT closer to home. documented in this encounter Plan of Treatment Not on file documented as of this encounter Visit Diagnoses Not on filedocumented in this encounter Care Teams Precinct Commanding Officer Relationship Specialty Start Date End Date Aneta Perez PA [address] [place] [id number] PCP - General Family Medicine 10/17/19 documented as of this encounter
--- OUTSIDE RECORDS SUMMARY | 2023-12-11 00:10 | XMS_ITS | Encounter Summary ---
Author Organization [facility] Address [facility] [place] [address] Care Team Providers Care Trencher Driver Name Role Phone Aneta Perez Primary Care Provider [phone] Reason for Visit * Reason Comments Follow Up Surgery left hand Encounter Details Date Type Department Care Team (Late st Contact Info) Description 10/31/2020 8:00 AM EDT Office Visit Plastic Surgery at [facility] [address] [place] [address] Ulises Parry MD [facility] [place] [address] Postop check Social History Tobacco Use Types Packs/Day Years [...] Progress Notes * Ulises Parry MD - 10/31/2020 8:00 AM EDT Plastic Surgery Post Op Note [...] returns to clinic for a follow up visit since proceeding with surgery back in early September. She has seen some improvement since her last visit. She continues to have decrease ROM with her index finger. She has been actively working with OT and wearing her custom molded splint. She is wondering about the timing of her next surgery to address her right index finger. She has questions about why both of her index fingers have difficulty with bending. As she approaches proceeding with surgery she is hoping to delay this until next year. She has thought about possibly proceeding with amputation but isn't sure. Examination Patient is alert, conversant, comfortable, ambulating [...] near full. Impression: Liset Hager is a 40 y.o. female who was seen today for follow- up after the above procedure. Please see the operative note for details. Since her last visit, there has been overall improvement with the contour and less bow stringing. She continues to have decreased AROM likey from adhesions to the kat reconstruction. Discussed with patient that when it comes time to proceed with repairing her FDS/FDP rupture to theright index finger that my overall goal is to help gain improvement with her function and decrease her discomfort. May consider muscle transfer/tendon balancing/possible ray amputation. As for now, she will continue focusing on PROM and gliding. She will contact my office when she is ready to proceed. Plan: May increased AAROM of index and wean from brace. Patient will call to schedule a follow up when ready to proceed with surgery. I, Do Esposito, have performed the documentation for this encounter in the presence of and acting as a scribe for Ulises Parry MD. documented in this encounter Plan of Treatment Not on file documented as of this encounter Visit Diagnoses Diagnosis Postop check Follow-up examination, following unspecified surgery documented in this encounter Care Teams Trencher Driver Relationship Specialty Start Date End Date Aneta Perez PA [address] [place] [id number] PCP - General Family Medicine 10/17/19 documented as of this encounter
--- OUTSIDE RECORDS SUMMARY | 2023-12-11 00:10 | XMS_ITS | Encounter Summary ---
[facility] [place] [address] Care Team Providers Care Supervisor Nurse Name Role Phone Aneta Perez Primary Care Provider [phone] Encounter Details Date Type Department Care Team (Late st Contact Info) Description 05/22/2021 Telephone [place] [phone] Brandee Francis Social History Tobacco Use Types Packs/Day Years [...] * Telephone Encounter - Tamara Domingo - 05/28/2021 2:41 PM EST She still has [place] Medicaid so no PA is needed! (From [facility]) * Telephone Encounter - Brandee Francis - 05/22/2021 11:20 AM EST Call from [facility] stating a new auth is required for patient's Rituxan order documented in this encounter Plan of Treatment Not on file documented as of this encounter Visit Diagnoses Not on filedocumented in this encounter Care Teams Supervisor Nurse Relationship Specialty Start Date End Date Aneta Perez PA [address] [place] [address] PCP - General Family Medicine 10/17/19 documented as of this encounter
--- OUTSIDE RECORDS SUMMARY | 2023-12-11 00:10 | XMS_ITS | Encounter Summary ---
Author Organization [facility] [place] [address] Care Team Providers Care Miniature Set Builder Name Role Phone Aneta Perez Primary Care Provider [phone] Encounter Details Date Type Department Care Team (Late st Contact Info) Description 07/25/2021 Telephone [place] [phone] Juan Manuel Sapp RN Social History Tobacco [...] Encounter - Juan Manuel Sapp RN - 07/25/2021 4:10 PM EST Liset calls to advise that [facility] does not have her infusion and they were advised it will not be delivered until next Thursday. Wants Rheumatology to do something about this. RTC to Liset and the infusion arrived today sooner than expected. documented in this encounter Plan of Treatment Not on file documented as of this encounter Visit Diagnoses Not on filedocumented in this encounter Care Teams Miniature Set Builder Relationship Specialty Start Date End Date Aneta Perez PA [address] [place] [address] PCP - General Family Medicine 10/17/19 documented as of this encounter
--- OUTSIDE RECORDS SUMMARY | 2023-12-11 00:10 | XMS_ITS | Encounter Summary ---
Author Organization [facility] [place] [address] Care Team Providers Care Picture Frames Inspector Name Role Phone Aneta Perez Primary Care Provider [phone] Encounter Details Date Type Department Care Team (Late st Contact Info) Description 10/17/2020 Orders [place] [address] Zak Lee MD [facility] [place] [address] Social History Tobacco Use Types Packs/Day Years [...] on filedocumented in this encounter Care Teams Picture Frames Inspector Relationship Specialty Start Date End Date Aneta Perez PA [address] [place] [id number] PCP - General Family Medicine 10/17/19 documented as of this encounter
--- OUTSIDE RECORDS SUMMARY | 2023-12-11 00:10 | XMS_ITS | Encounter Summary ---
Author Organization [facility] [place] [address] Care Team Providers Care Rental Clerk Tool And Equipment Name Role Phone Aneta Perez Primary Care Provider [phone] Encounter Details Date Type Department Care Team (Late st Contact Info) Description 09/06/2020 Orders Only [place] [address] Zak Lee MD [facility] [place] [address] Social History Tobacco Use Types Packs/Day Years [...] on filedocumented in this encounter Care Teams Rental Clerk Tool And Equipment Relationship Specialty Start Date End Date Aneta Perez PA [address] [place] [address] PCP - General Family Medicine 10/17/19 documented as of this encounter
--- OUTSIDE RECORDS SUMMARY | 2023-12-11 00:10 | XMS_ITS | Encounter Summary ---
Author Organization [facility] Address [facility] [place] [address] Care Team Providers Care Heel Cementer Machine Name Role Phone Aneta Perez Primary Care Provider [phone] Reason for Visit * Occupational Therapy (Routine) - Closed Specialty Diagnoses / Procedures Referred By Roberto palomares Referred To Contact Occupational Therapy Diagnoses Surgery follow-up Surgery follow-up Procedures Evaluate and Treat Ulises Parry MD [facility] [place] [address] [facility] [address] [place] [address] Referral ID Status Reason Start Date Expiration Date V isits Requested Visits Authorized [id number] Closed Evaluate and Treat 09/06/2020 09/06/2021 30 30 Encounter Details Date Type Department Care Team (Late st Contact Info) Description 10/03/2020 10:30 AM EDT Office Visit Occupational Therapy at [facility] [address] [place] [address] Tucker Wiggins OT [facility] [place] [address] Pain in finger of left hand Social [...] encounter Miscellaneous Notes * Initial Evaluation - Tucker Wiggins, OT - 10/03/2020 10:30 AM EDT OCCUPATIONAL THERAPY ORTHOTIC EVALUATION Certification Period: 07/25/20-10/21/20 Referral Source: Dr. Ulises Christian MD Follow-up: 3-4 weeks Total Treatment time: 30 Minutes Timed Code Treatment Time: 30 minutes OCCUPATIONAL PROFILE: Liset Hager is a 40 y.o. year old Right hand dominant female who has rheumatoid arthritis impacting multiple body joints, but both hands it has impacted her flexor tendonsto her index fingers. She has had 4 surgeries to her left hand to address the index finger function. Most recently she had a tendon transfer to address FDS function. Due to years of flexion occurringfrom the MP from Lumbrical function she is still posturing with in a resting MP flexion position. MD referred to OT today to attain a custom molded orthosis to increase extension at the MP joint. Liset has had previous splinting to position her hand and reports her dog ate the splint. Liset Hager is referred to Occupational Therapy for evaluation and treatment to include fabrication of a custom orthosis. Patient presents today alone. Liset requested the orthosis incorporate all of her fingers as in the past it was uncomfortable to the ones not supported in the orthosis. 10/03/20: Liset Mcmillan returns to OT today post op her left hand index finger A1 kat reconstruction and lumbrical release. Liset is familiar to this therapist from other orhtosis fabrication needs. Today she is referred for a hand based orthosis to block the MP and allow IP to be free. She lives far away from this facility and has received OT from [facility]. The MD will set up an external OT referral for her to attain follow up OT services. Liset reports she is pretty sore at theleft index finger, and the donor tendon site on her right wrist is sore as well. She was wearing anace wrap that appears to have been a bit too tight, as her right hand is moderately swollen. Date of onset of symptoms: Ongoing gradually getting worse for years Date of surgery: 10/01/20 Pertinent History and/or Co-morbidities: 1. Pain in finger of left hand Occupation: Currently not working and has applied for disability Vocational status: not working Avocational Activities: Time with her teenage daughter and new puppy OCCUPATIONAL PERFORMANCE DEFICITS: Liset Hager is limited with current performance due to swelling, stiffness, limited mobility/range of motion and limited strength. Global Mental Function: With gross screening of patient???s global mental functions, patient demonstrates orientation to person, place, time, and situation. Patient???s affect/behavior is appropriateand cooperative today. Pain: (Assessed using the Visual Analog Pain Scale) At Rest: 5-6/10 With Activity: 5-6/10 Treatment Today: Orthosis - Hand Finger Orthotic, W/O Jts, Custom, Fit & Adj ([id number]) Educated patient in etiology and biomechanics as related to patient's symptoms Fabricated hand based orthosis with MP's in neutral and IP joints free for her left index finger Instructed in orthosis wear and care to wear all the time except for hand hygiene and exercise CLINICAL DECISION MAKING: Liset Hager has a well fitting orthosis post therapy. Liset Hager is able to independently verbalize and demonstrate the recommended home program following instructions today. Liset Hager has good to fair potential for gains with therapy/home program use.Patient knows to call with any questions or concerns. Short Term Goals (to be met by end of the visit today): Date Goal Met: Today 1. Liset Hager will demonstrate independence with donning and doffing of her orthosis and verbalization of purpose. Goal Status: Meets. PLAN: one time visit for orthotic fabrication. Zulema Mcmillan will call this clinic if she needs an orthosis adjustment. She plans to return to her hand therapist in her home town. MD will send external hand therapy referral. She will follow up with hand surgeon in 3-4 weeks. (X) Liset Hager participated in the evaluation, collaborated on treatment goals, and agrees to the treatment plan. documented in this encounter Plan of Treatment Not on file documented as of this encounter Visit Diagnoses Diagnosis Pain in finger of left hand Pain in limb documented in this encounter Care Teams Heel Cementer Machine Relationship Specialty Start Date End Date Aneta Perez PA [address] [place] [id number] PCP - General Family Medicine 10/17/19 documented as of this encounter
--- OUTSIDE RECORDS SUMMARY | 2023-12-11 00:10 | XMS_ITS | Encounter Summary ---
Author Organization [facility] [place] [address] Care Team Providers Care Case Therapist Name Role Phone Aneta Perez Primary Care Provider [phone] Encounter Details Date Type Department Care Team (Late st Contact Info) Description 07/11/2022 Telephone [place] [id number] Uzma Ocasio Social History Tobacco Use Types Packs/Day Years [...] encounter Miscellaneous Notes * Telephone Encounter - Uzma Ocasio - 07/11/2022 10:37 AM EST Call to pt to confirm Pre op was done- pt said she had it done at the end of Jun- provided the fax number. She is having PCP fax over today. CI documented in this encounter Plan of Treatment Not on file documented as of this encounter Visit Diagnoses Not on filedocumented in this encounter Care Teams Case Therapist Relationship Specialty Start Date End Date Aneta Perez PA [address] [place] [id number] PCP - General Family Medicine 10/17/19 documented as of this encounter
--- OUTSIDE RECORDS SUMMARY | 2023-12-11 00:10 | XMS_ITS | Encounter Summary ---
Author Organization [facility] [place] [address] Care Team Providers Care Model Making Supervisor Name Role Phone Aneta Perez Primary Care Provider [phone] Encounter Details Date Type Department Care Team (Late st Contact Info) Description 08/17/2020 External Results [place] [address] Zak Lee MD [facility] [place] [address] Social History Tobacco Use Types Packs/Day Years [...] Procedure Name Priority Date/Time Associated Diagnosis Comments INFUSION THERAPY Routine 08/17/2020 documented in this encounter Results * Infusion therapy (08/17/2020) Zak Lee MD INFUSION - IV ORD ERABLES documented in this encounter Visit Diagnoses Not on filedocumented in this encounter Care Teams Model Making Supervisor Relationship Specialty Start Date End Date Aneta Perez PA [address] [place] [id number] PCP - General Family Medicine 10/17/19 documented as of this encounter
--- OUTSIDE RECORDS SUMMARY | 2023-12-11 00:10 | XMS_ITS | Encounter Summary ---
Author Organization [facility] Address [facility] [place] [address] Care Team Providers Care Valve Inserter Name Role Phone Aneta Perez Primary Care Provider [phone] Encounter Details Date Type Department Care Team (Late st Contact Info) Description 08/14/2020 10:30 AM EDT TH Visit (TeleHealth) [place] [address] Zak Lee MD [facility] [place] [address] Rheumatoid arthritis involving multiple sites with positive rheumatoid factor; Other secondary osteoarthritis of multiple sites; High risk medication use; Tendon dysfunction; Other specified diabetes mellitus with other specified complication, unspecified whether mcc insulin use; Depression, unspecified depression type; Anxiety; Chronic pain of both knees Social History Tobacco Use Types Packs/Day Years Used Date Smoking Tobacco: Every Day Cigarettes Smokeless Tobacco: Never Sex and Gender Information Value Date Recorded Sex Assigned at Not on file Gender Identity Not on file Sexual Orientation Not on file documented as of this encounter Patient Instructions * Patient Instructions* Zak Lee MD - 08/14/2020 10:30 AM EDT 1. We will see her in the clinic next 08/24/2020 to get a better idea of the status of her joint issues. 2. We will continue to try and get the Rituxan infusion scheduled as quickly as possible up at [facility]. Again, we will be giving her 1 infusion every 4 months going forward. As before, we will not give her any steroids with the infusion as that spikes her blood sugars. 3. We will continue to prescribe the tramadol for her pain, which has been effective and she is notabusing it. 4. She will contact her GI specialist about a possible repeat of her EGD to make sure she has healed her ulcers before we resume NSAIDs, specifically Celebrex. We would still keep her on gastroprotective's, either omeprazole or sucralfate or both. 5. We will fill out her disability forms to the best of our ability. 6. She will continue to work with Dr. Arnold on her mental health issues. They are still in the process of adjusting her medications. Again, Dr. Arnold is okay with her being on tramadol. 7. We did not have a chance to talk about her COVID-19 vaccination status. We will discuss that next week. documented in this encounter Progress Notes * Zak Lee MD - 08/14/2020 10:30 AM EDT Rheumatology Clinic: Dr. Lee 08/14/2020 [id number] This is a TeleHealth telephone visit for Liset Hager in follow-up of her seropositive rheumatoid arthritis with quite a bit of secondary damage already. When we assumed her care, we started brad Rituxan, 2 infusions every 6 months. That has worked well for her, but after her last set of infusions done at [facility] about 4 months ago, she has broken through early. She has had a lot of pain, particularly in her hands, shoulders, low back, and knee caps. When I specifically asked her today which of these pains does she expect to get better with the Rituxan based on her previous experience, she said all of them except the kneecaps. This sounds like more mechanical pain. She describes a lot of popping and cracking and pain when she stands up. She denies any swelling, erythema,warmth, or any other indication of inflammation in the knees. Unfortunately, she has been having a very difficult time in terms of psychosocial issues. Her 17-year-old daughter just became . Her son has been combative. Her has been helpful and supportive, but the situation seems overwhelming at times. In fact, she was recently in her local hospital for 16 days for a suicide attempt. We did not know about this until we got a call from an ER physician, Dr. Sylwia Jackson, up but [facility] on 07/31/2020 when the patient came back there after discharge with increasing pain and some suicidal ideation. We discussed with Dr. Jackson that it would be okay to have her go on tramadol once she was cleared psychiatrically. Since then, the patient has s poken to her counselor, Dr. Arnold, who agreed with that assessment. We talked to her after she wenthome from the emergency room that evening and sent in a prescription for tramadol and also set up an appointment for the following day here at [facility] with the intention of switching her Rituxan infusions to every 4 weeks. Unfortunately she canceled the appointment early the following day. We have still been communicating with her and have begun the process for getting her another infusion of Rituxan up at [facility] as soon as possible. We went over that again today and she wants to proceed. In the meantime, she has found the tramadol to be very helpful. She is only taking 1 a day, so she has been good about that. She has been using Voltaren gel with some benefit. We also brought up possibly of going on Celebrex, something I had brought up at her last visit in early April. The storythere was she was taking naproxen regularly and developed a gastric ulcer by EGD. Of course, the naproxen was stopped and she was put on sucralfate and omeprazole and her symptoms are better. She told me that the outside maintenance worker did not want to repeat her EGD unless we wanted to resume anti-inflammatories. We decided today that she will contact her GI person and let them know that were thinking about starting her on Celebrex, which will definitely be more GI safe than naproxen, but it still might be best to confirm that she's healed her ulcers before doing that. No matter what that shows,we would keep her on one or both of her antiacid medications, omeprazole and sucralfate. A couple of new issues have come up. She has some deformity and swelling to her right first and second toe. She does not remember any trauma there. Oddly enough, this is not at all painful. There areno signs of infection. She is a diabetic. I told her it was difficult to diagnose this over the phone. We agreed to an in-person visit next week. The other thing we discussed is that Dr. Parry says she is going to need another operation on herright hand, where she has had some problem with her left index finger. With all of these issues, she has been out of work and she is now applying for disability. She has some forms she would like me to fill out and I asked her to send them along or bring them in next week. She also reports that sheis going to have a brain MRI soon. She is waiting for that to be scheduled. This is in follow-up ofa cyst that was seen in her left brain back in 2010. She has been having more headaches lately and her primary wants to make sure nothing has changed there. This will be done at [facility]. Patient Active Problem List Diagnosis Code ??? Depression F32.9 ??? Anxiety F41.9 ??? Rheumatoid arthritis involving multiple sites with positive rheumatoid factor M05.79 ??? High risk medication use Z79.899 ??? Degenerative joint disease involving multiple joints M15.9 ??? Cigarette smoker F17.210 ??? Graves disease E05.00 ??? Tendon dysfunction M67.90 ??? Tendon rupture of wrist S66.919A Medications 07/25/20 0833 Medication Sig Taking? traMADoL (Ultram) 50 mg Tablet Take 1 tablet by mouth every 8 hours as needed for Pain. venlafaxine XR (Effexor-XR) 75 mg Capsule, Sust. Release 24 hr Take 75 mg by mouth daily. ondansetron ODT (Zofran-ODT) 4 mg Tablet, Rapid Dissolve Take 1 tablet by mouth every 8 hours as needed for Nausea. diclofenac (Voltaren) 1 % Gel Apply 2 g topically 4 times daily. omeprazole (PriLOSEC) 20 mg Capsule, Delayed Release(E.C.) Take 20 mg by mouth daily. Indications: gastroesophageal reflux disease atorvastatin (Lipitor) 20 mg Tablet rituximab (RITUXAN IV) Inject into the vein. albuterol (PROVENTIL) 2.5 mg /3 mL (0.083 %) Solution for Nebulization prn clonazePAM (KLONOPIN) 0.5 mg Tablet Take 1/2 tablet nightly amitriptyline (ELAVIL) 100 mg Tablet Take 1 tablet by mouth daily. ONETOUCH ULTRA BLUE TEST STRIP Strip as needed. ONETOUCH ULTRA2 Kit as needed. clonazePAM (KLONOPIN) 0.125 mg Tablet, Rapid Dissolve Take 1 tablet by mouth daily. cloNIDine (CATAPRES) 0.1 mg Tablet Take 1 tablet by mouth daily. lamoTRIgine (LAMICTAL) 100 mg Tablet Take 1 tablet by mouth 2 times daily. In am lamoTRIgine (LAMICTAL) 25 mg Tablet Take 50 mg by mouth every evening. cholecalciferol, Vitamin D3, (CHOLECALCIFEROL, VITAMIN D3,) 2,000 unit Capsule Take 2,000 Units by mouth daily. metFORMIN (GLUCOPHAGE) 500 mg Tablet Take 500 mg by mouth daily. cloNIDine (CATAPRES) 0.2 mg tablet Take 0.2 mg by mouth 3 times daily. Physical Exam: Phone visit only. She sounds well on the phone her although a little bit sleepy. Assessment: We had a long discussion about her situation. She is describing a combination of activerheumatoid arthritis, particularly in her hands and shoulders, but also some mechanical/degenerative type pain in the low back and knees. I am not sure what to make of the right first and second toe.We agreed to the following course of action. She understood the plan. I will see her next 08/24/2020. We gave the patient the following specific instructions: 1. We will see her in the clinic next 08/24/2020 to get a better idea of the status of her joint issues. 2. We will continue to try and get the Rituxan infusion scheduled as quickly as possible up at [facility]. Again, we will be giving her 1 infusion every 4 months going forward. As before, we will not give her any steroids with the infusion as that spikes her blood sugars. 3. We will continue to prescribe the tramadol for her pain, which has been effective and she is notabusing it. 4. She will contact her GI specialist about a possible repeat of her EGD to make sure she has healed her ulcers before we resume NSAIDs, specifically Celebrex. We would still keep her on gastroprotective's, either omeprazole or sucralfate or both. 5. We will fill out her disability forms to the best of our ability. 6. She will continue to work with Dr. Arnold on her mental health issues. They are still in the process of adjusting her medications. Again, Dr. Arnold is okay with her being on tramadol. 7. We did not have a chance to talk about her COVID-19 vaccination status. We will discuss that next week. Total phone time: 16 min, 47 sec. Total visit time: 40 minutes. Visit level: 22068. Visit Diagnoses: 1. Rheumatoid arthritis involving multiple sites with positive rheumatoid factor 2. Other secondary osteoarthritis of multiple sites 3. High risk medication use 4. Tendon dysfunction 5. Other specified diabetes mellitus with other specified complication, unspecified whether mcc insulin use 6. Depression, unspecified depression type 7. Anxiety 8. 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
--- OUTSIDE RECORDS SUMMARY | 2023-12-11 00:10 | XMS_ITS | Encounter Summary ---
Author Organization [facility] Address [facility] [place] [address] Care Team Providers Care Assistant Producer Name Role Phone Aneta Perez Primary Care Provider [phone] Reason for Referral * Occupational Therapy (Routine) - Closed Specialty Diagnoses / Procedures Referred By Roberto palomares Referred To Contact Diagnoses Tendon rupture of wrist, left, initial encounter Ulises Parry MD [facility] [place] [address] Unknown None Referral ID Status Reason Start Date Expiration Date V isits Requested Visits Authorized [id number] Closed Evaluate and Treat 10/04/2020 04/02/2021 12 12 Encounter Details Date Type Department Care Team (Late st Contact Info) Description 10/04/2020 Orders [place] [address] Ulises Parry MD [facility] [address] Tendon rupture of wrist, left, initial encounter Social History Tobacco Use Types Packs/Day [...] as of this encounter Plan of Treatment Scheduled Referrals Name Type Priority Associated Diagnoses Order Schedule Referral to Occupational Therapy Outpatient Referral Routine Tendon rupture of wrist, left, initial encounter Ordered: 10/04/2020 documented as of this encounter Visit Diagnoses Diagnosis Tendon rupture of wrist, left, initial encounter documented in this encounter Care Teams Assistant Producer Relationship Specialty Start Date End Date Aneta Perez PA [address] [place] [id number] PCP - General Family Medicine 10/17/19 documented as of this encounter
--- OUTSIDE RECORDS SUMMARY | 2023-12-11 00:10 | XMS_ITS | Encounter Summary ---
Author Organization [facility] Address [facility] [place] [address] Care Team Providers Care Gore Stitcher Name Role Phone Aneta Perez Primary Care Provider [phone] Reason for Referral * Occupational Therapy (Routine) - Closed Specialty Diagnoses / Procedures Referred By Roberto palomares Referred To Contact Occupational Therapy Diagnoses Surgery follow-up Surgery follow-up Procedures Evaluate and Treat Ulises Parry MD [facility] [place] [address] [facility] [address] [address] [place] [address] Referral ID Status Reason Start Date Expiration Date V isits Requested Visits Authorized [id number] Closed Evaluate and Treat 09/06/2020 09/06/2021 30 30 Reason for Visit * Reason Comments Follow Up Surgery Encounter Details Date Type Department Care Team (Late st Contact Info) Description 09/06/2020 8:45 AM EDT Office [place] [address] Ulises Parry MD [facility] [place] [address] Surgery follow-up Social History Tobacco Use Types Packs/Day Years Used Date Smoking Tobacco: Every Day Cigarettes Smokeless Tobacco: Never Sex and Gender Information Value Date Recorded Sex Assigned at Not on file Gender Identity Not on file Sexual Orientation Not on file documented as of this encounter Patient Instructions * Patient Instructions* Charlene Taylor RN - 09/06/2020 8:45 AM EDT Preoperative Instructions You have been scheduled to have plastic surgery. The instructions below are specific to your procedure. If you are a smoker, we ask that you stop at least 2 months prior to your surgical date and remain nicotine free for at least a month after surgery. Smoking can impair healing and increase your chance of infection. Two Weeks prior to Surgery YOU DO NOT NEED TO STOP any aspirin or ibuprofen products before your surgery. If you need medication for pain, you may take Tylenol or extra strength Tylenol during this two week period. One Week prior to Surgery Please call if you feel ill, have [...] brush. DO NOT wear any rings, nail danish or artifical nails. The Same Day Surgery [...] to your surgery. Day of Surgery A services delivery driver is required at time of discharge. [...] For questions pertaining to your surgical date [phone] For nursing related questions [phone] On weekends, holidays or after office hours: Call and ask the paper cap machine operator to page the Plastic Surgery Resident provider relations manager. documented in this encounter Progress Notes * Ulises Parry MD - 09/06/2020 8:45 AM EDT Plastic Surgery Post Op Note Reason for visit: F/U status post procedure Date of surgery: 03/27/2020 Procedure(s): Left FDP tendon transfer from middle to index finger performed at wrist. Index lumbricals released with Dr. Parry/Rachel Complications: None reported Reason for visit: F/U status post procedure Date of surgery: 12/05/2019 Procedure(s): Left index finger tenolysis. Complications: None reported ?? HPI: Pt returns to clinic for follow up s/p left FDP tendon transfer from middle to index finger and index lumbricals release. She reports no new changes since her last visit. She has had some personal difficulties in the last few months but is still wanting to proceed with kat reconstruction and zplasty. She continues to work with Rheumatology and has been proceeding with infusions due to her seropositive rheumatoid arthritis. Examination: There were no vitals taken for this visit. Patient is alert, conversant, comfortable, ambulating Left upper extremity Incision: CDI, healing well. No collection, no erythema, no evidence of cellulitis. Still in lumbrical + position, bowstringing at A2, PIP AROM with MP in extension 0-50, tender with passive index finger extension. Impression: Liset Hager is a 39 y.o. female who was seen today for follow- up after the above procedure please see op note for details. Revisited with patient the next stage of surgery which consists of a A2 kat reconstruction/zplasty however, I did express that I am a bit concerned about th e timing of her procedure with all of her recent life challenges but she does indicate that she hasproper post op help. I will touch base with her [employer] in regards to her infusions and pre- op/post op planning. Surgical Grid Surgeon: Sohan Duration: 60 min Timeframe: next available Procedure: kat reconstruction/zplasty CPT: 72783,19698 Surgical site: hand Side: left Anesthesia: General Follow up: 7 Days THHF: Y/N: yes H&P: no Implants needed: tendon harvester OT needed at post op visit: yes hand base splint No covid testing Plan: Proceed with kat reconstruction and zplasty Follow up in one week coordinate with OT for hand base splint. IDo, have performed the documentation for this encounter in the presence of and acting as a scribe for Ulises Parry MD. documented in this encounter Plan of Treatment Scheduled Referrals Name Type Priority Associated Diagnoses Order Schedule Referral to Occupational Therapy Outpatient Referral Routine Surgery follow-up Ordered: 09/06/2020 documented as of this encounter Visit Diagnoses Diagnosis Surgery follow-up Follow-up examination, following unspecified surgery documented in this encounter Care Teams Gore Stitcher Relationship Specialty Start Date End Date Aneta Perez PA [address] [place] [id number] PCP - General Family Medicine 10/17/19 documented as of this encounter
--- OUTSIDE RECORDS SUMMARY | 2023-12-11 00:10 | XMS_ITS | Encounter Summary ---
[place] [address] Care Team Providers Care Manual Training Teacher Name Role Phone Aneta Perez Primary Care Provider Encounter Details Date Type Department Care Team ([facility] st Contact Info) Description 05/20/2022 Telephone [place] [phone] Anna Rodriguez MA Social History Tobacco Use Types Packs/Day Years [...] encounter Miscellaneous Notes * Telephone Encounter - Anna Rodriguez RMA - 05/20/2022 4:09 PM EST Called patient for pre-charting, no answer. FREDRICK RAI documented in this encounter Plan of Treatment Not on file documented as of this encounter Visit Diagnoses Not on filedocumented in this encounter Care Teams Manual Training Teacher Relationship Specialty Start Date End Date Aneta Perez PA [address] [place] [id number] PCP - General Family Medicine 10/17/19 documented as of this encounter
--- OUTSIDE RECORDS SUMMARY | 2023-12-11 00:10 | XMS_ITS | Encounter Summary ---
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 Name Role Phone Aneta Perez Primary Care Provider [phone] Reason for Visit * Auth/Cert Specialty Diagnoses / Procedures Referred By Roberto t Referred To Contact Diagnoses finger issue Procedures PRO HAND TENDON KETTY RECONST, GRAFT RECONSTRUCT TENDON KETTY, EA TENDON, W/ TENDON OR FASCIAL GRAFT (WRVU 7.31) Referral ID Status Reason Start Date Expiration Date Visits Re quested Visits Authorized [id number] 1 1 Encounter Details Date Type Department Care Team (Late st Contact Info) Description 10/01/2020 8:50 AM EDT - 10/01/2020 10:10 AM EDT Surgery [place] [address] Ulises Parry MD [facility] [place] [address] RECONSTRUCT TENDON KETTY, EA TENDON, W/ TENDON OR FASCIAL GRAFT (WRVU 7.31) Social History Tobacco Use Types Packs/Day Years [...] Sign Reading Time Taken Comments Blood Pressure 132/90 10/01/2020 7:39 AM EDT Pulse 104 10/01/2020 7:39 AM EDT Temperature 36.4 ??C (97.5 ??F) 10/01/2020 7:39 AM ED T Respiratory Rate 18 10/01/2020 7:39 AM EDT Oxygen Saturation 97% 10/01/2020 7:39 AM EDT Inhaled Oxygen Concentration - - Weight 69.9 kg (154 lb) 10/01/2020 7:39 AM EDT Height 162.6 cm (5' 4) 10/01/2020 7:39 AM EDT Body Mass Index 26.43 10/01/2020 7:39 AM EDT documented in this encounter Discharge Instructions * Discharge Instructions* Kim Rascon RN - 10/01/2020 7:55 AM EDT General Anesthesia Discharge Instructions Go home and rest. You may be sleepy for several hours. Take it easy as sudden position changes may cause nausea and/or dizziness. Use caution on stairs. Do not smoke if you are alone. Follow a light to regular diet as tolerated today. If nausea occurs, start with clear liquids, and progress slowly to a regular diet. Do not drive, operate machinery, drink alcoholic beverages or make any legal decisions after havinggeneral anesthesia. The medications given change your reaction time and alter your judgement. IV site -- slight redness is normal, you can use warm compresses. If tenderness and redness increases or foul drainage occurs, please contact your M.D. Patients who have had endotracheal tubes/LMA (tubes used by the anesthesia staff to ensure a safe airway during your operation) may have a sore throat. This is normal and cold liquids or soothing lozenges will help ease this discomfort. Narcotic pain medications can cause constipation, please ask the surgeons office what they recommend for prevention of this. Some non-pharmaceutical means of constipation prevention include increasing intake of fluids, eating more fruits and vegetables as well as fruit juices. If you are uncomfortable and/or unable to urinate within 8 hours of discharge and it is before 5 pm, call your physician. If it is after 5pm go to the closest emergency room or call the hospital cable operator at [phone] and ask for physician admissions manager rn covering for your physician. Questions or problems after 5pm or on a weekend: Call the [facility] cable operator at and ask for the physician admissions manager rn covering for your doctor. At 0800 am you received 1000 mg of acetaminophen- Your next dose should not be taken before 8 hourshave passed. Next dose not before- 4:00 pm You should not take more than a total of 3000 mg of acetaminophen in a 24 hour period. * Patient Instructions* Molly Ramos MD - 10/01/2020 10:17 AM EDT Images from the original note were not included. Hand Discharge Instructions: Keep dressings on and dry at all times until your follow-up appointment. Cover dressings with a plastic bag to shower. Ok to move fingers on right hand. Avoid heavy lifting or strenuous activity until cleared by your surgeon. Do not use left hand until cleared by Dr. Parry. Keep hands elevated at all times until your follow-up appointment. We recommend you take tylenol for pain. You may take 1000 mg every 6 hours as needed. Do not take more than 3000 mg in a 24 hour period. Be careful if you are taking tylenol and a narcotic medication, as some narcotics contain tylenol. You may also take motrin/ibuprofen/aleve for pain. You may hyft958 mg of motrin every 6-8 hours for pain. If your pain is still not controlled, you may take the narcotic pain medication prescribed for you. Do not drive or operate machinery while taking narcotic pain medications. If taking narcotics, we recommend taking an [id number] stool softener to prevent constipation. Call our office if: ??? Fingers in splint are white, numb or cold. ??? You have signs of infection o A temperature over 100.4 F. o Redness of the incision lines that is beginning to spread away from the incision. o Yellow pus-like or foul smelling drainage from the incision or drain site. o Increase pain/discomfort that is not relieved by your pain medication. To make an appointment or for questions about scheduling, please contact our administrative officesat [phone] For clinical questions, please call our nurses at [phone] Both offices are open Thursday thru Thursday 8a - 5p. With emergencies after hours, call the hospital cable operator at [phone] and ask for the Plastic Surgery Resident admissions manager rn. Our office will contact you to schedule a follow up appointment for this Thursday. MEDICATIONS: Your Medications New Medications Dose Details oxyCODONE 5 mg Tab Commonly known as: Roxicodone Take 1 tablet by mouth every 4 hours as needed. 5 mg Quantity: 8 tablet Refills: 0 Continued medications, unchanged Dose Details albuteroL 2.5 mg /3 mL (0.083 %) Nebu Commonly known as: PROVENTIL prn Refills: 0 amitriptyline 100 mg Tab Commonly known as: Elavil Take 1 tablet by mouth daily. 1 tablet Refills: 0 atorvastatin 20 mg Tab Commonly known as: Lipitor Refills: 0 cholecalciferol (Vitamin D3) 50 mcg (2,000 unit) Cap Take 2,000 Units by mouth daily. Generic drug: cholecalciferol (Vitamin D3) 2,000 Units Refills: 0 * clonazePAM 0.125 mg Tbdl Commonly known as: KlonoPIN Take 1 tablet by mouth daily. 1 tablet Refills: 0 * clonazePAM 0.5 mg Tab Commonly known as: KlonoPIN Take 1/2 tablet nightly Refills: 0 * cloNIDine 0.2 mg Tab Commonly known as: Catapres Take 0.2 mg by mouth 3 times daily. 0.2 mg Refills: 0 * cloNIDine 0.1 mg Tab Commonly known as: Catapres Take 1 tablet by mouth daily. 1 tablet Refills: 0 diclofenac 1 % Gel Commonly known as: Voltaren Apply 2 g topically 4 times daily. 2 g Quantity: 1 Tube Refills: 11 * lamoTRIgine 100 mg Tab Commonly known as: LaMICtal Take 1 tablet by mouth 2 times daily. In am 1 tablet Refills: 0 * lamoTRIgine 25 mg Tab Commonly known as: LaMICtal Take 50 mg by mouth every evening. 50 mg Refills: 0 metFORMIN 500 mg Tab Commonly known as: Glucophage Take 500 mg by mouth daily. 500 mg Refills: 0 omeprazole 20 mg Cpdr Commonly known as: PriLOSEC Take 20 mg by mouth daily. Indications: gastroesophageal reflux disease 20 mg Refills: 0 ondansetron ODT 4 mg Tbdl Commonly known as: Zofran-ODT Take 1 tablet by mouth every 8 hours as needed for Nausea. 4 mg Quantity: 20 tablet Refills: 0 OneTouch Ultra Blue Test Strip Strp as needed. Generic drug: blood sugar diagnostic strips Refills: 0 OneTouch Ultra2 Meter Kit as needed. Generic drug: blood-glucose meter Refills: 0 RITUXAN IV Inject into the vein. Refills: 0 traMADoL 50 mg Tab Commonly known as: Ultram Take 1 tablet by mouth every 8 hours as needed for Pain. 50 mg Quantity: 30 tablet Refills: 1 venlafaxine XR 75 mg Cp24 Commonly known as: Effexor-XR Take 75 mg by mouth daily. 75 mg Refills: 0 * This list has 6 medication(s) that are the same as other medications prescribed for you. Read thedirections carefully, and ask your doctor or other care provider to review them with you. documented in this encounter Medications at Time of Discharge Medication Sig Dispensed Refills Start Date End Date diclofenac (Voltaren) 1 % Gel Apply 2 g topically 4 times daily. 1 Tube 11 04/03/2020 rituximab (RITUXAN IV) Inject into the vein. albuterol (PROVENTIL) 2.5 mg /3 mL (0.083 %) Solution for Nebulization prn 09/29/2018 amitriptyline (ELAVIL) 100 mg Tablet Take 1 tablet by mouth daily. 05/13/2018 ONETOUCH ULTRA BLUE TEST STRIP Strip as needed. 01/25/2018 ONETOUCH ULTRA2 Kit as needed. 01/25/2018 lamoTRIgine (LAMICTAL) 100 mg Tablet Take 200 mg by mouth 2 times daily. In am 04/28/2018 lamoTRIgine (LAMICTAL) 25 mg Tablet Take 50 mg by mouth every evening. 05/13/2018 metFORMIN (GLUCOPHAGE) 500 mg Tablet Take 500 mg by mouth 2 times daily (with meals). oxyCODONE (Roxicodone) 5 mg Tablet Take 1 tablet by mouth every 4 hours as needed. 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 30 tablet 1 07/31/2020 05/21/2022 venlafaxine XR (Effexor-XR) 75 mg Capsule, Sust. Release 24 hr Take 75 mg by mouth daily. 06/25/2022 ondansetron ODT (Zofran-ODT) 4 mg Tablet, Rapid DissolveIndications:H igh risk medication use,Infusion reaction, subsequent encounter,Drug-induce d nausea and vomiting Take 1 tablet by mouth every 8 hours as needed for Nausea. 20 tablet 05/03/2020 05/22/2021 omeprazole (PriLOSEC) 20 mg Capsule, Delayed Release(E.C.)Indicati ons:gastroesophageal reflux disease Take 20 mg by mouth daily. Indications: gastroesophageal reflux disease 07/22/2022 atorvastatin (Lipitor) 20 mg Tablet Take 40 mg by mouth daily. 09/27/2019 07/22/2022 clonazePAM (KLONOPIN) 0.5 mg Tablet Take 1/2 tablet nightly 11/29/2018 clonazePAM (KLONOPIN) 0.125 mg Tablet, Rapid Dissolve Take 1 tablet by mouth daily. 05/04/2018 06/25/2022 cloNIDine (CATAPRES) 0.1 mg Tablet Take 1 tablet by mouth daily. 04/13/2018 06/25/2022 cholecalciferol, Vitamin D3, 50 mcg (2,000 unit) Capsule Take 2,000 Units by mouth daily. 07/22/2022 cloNIDine (CATAPRES) 0.2 mg tablet Take 0.2 mg by mouth 3 times daily. 06/25/2022 documented as of this encounter Progress Notes * Kim Rascon RN - 10/01/2020 12:07 PM EDT Pt denies pain, reports numbness/tingling in bilateral forearms/hands. Forearm dressings CDI, fingers pink, warm on both hands. All D/C instructions reviewed with pt and her partner Everett; both verbalized understanding. Call to Dr. Parry' s office to confirm appt on 10/01 at 10:15 am. Pt to home in good condition. Patient ambulated to car for discharge accompanied by [facility] staff member. 1215: Pt aborted D/C as she reported she was not able to void. Requested her partner to assist her in the bathroom. Still unable. Returned to the room, bladder scanned for 350 cc. Discussion re staying to monitor vs D/C to home with understanding that if she is not able to void by 2:00 pm she may require I&O catheterization and a visit to the local ER. Both pt and her boyfriend elect to head home. Both verbalize understanding of plan * Allie Robb RN - 09/28/2020 4:06 PM EDT During this call the patient was questioned regarding travel outside of [place], fever, cough, SOB or other illness in the last 14 days. Patient also questioned regarding any exposure to aCOVID positive person, a person awaiting results from testing or a person in quarantine.Patient also denies attending a gathering of 50 people indoors or 100 people outdoors where a mask was unable to be worn.Patient denies any positive responses to the above questions for themselves or their escort for the day of procedure. Patient informed of procedure to be followed upon arrival to the [facility]. That being, COVID questions will be asked again, temperature will be taken, patient and caregiver/tank driver will be given a mask to wear the entire time they are in the [facility] building. * Yudelka Toro RN - 09/24/2020 3:57 PM EDT During this call the patient was questioned regarding travel outside of [place], fever, cough, SOB or other illness in the last 14 days. Patient also questioned regarding any exposure to aCOVID positive person, a person awaiting results from testing or a person in quarantine.Patient also denies attending a gathering of 50 people indoors or 100 people outdoors where a mask was unable to be worn.Patient denies any positive responses to the above questions for themselves or their escort for the day of procedure. Patient informed of procedure to be followed upon arrival to the [facility]. That being, COVID questions will be asked again, temperature will be taken, patient and caregiver/tank driver will be given a mask to wear the entire time they are in the [facility] building. documented in this encounter H&P Notes * Molly Ramos MD - 10/01/2020 8:23 AM EDT Plastic Surgery Preoperative H&P: Patient Name: Liset Hager Patient : [id number] Today's Date: 10/01/2020 Liset Hager is a 40 y.o. female here for ketty reconstruction of left index finger. No changes since last seen. History reviewed. No pertinent past medical history. Past Surgical History: Procedure Laterality Date ? ? PRO ADJ TISS XFER HEAD, FAC, HAND <10SQCM Left 03/26/2020 ADJ.TISSUE TRANSFER, REARRANGEMENT, 10SQ.CM OR LESS, HANDS (WRVU 8.6) performed by Monique Parry MD at [facility] ? ? PRO TENOLYSIS FLEX TENDON, PALM & FINGER, EA Left 12/05/2019 TENOLYSIS, FLEXOR TENDON, PALM AND FINGER EACH (WRVU 9.75) performed by Ulises Parry MD at [facility] ??? PRO TENOLYSIS, FLEX TENDON, PALM/FINGER, EA Left 03/26/2020 TENOLYSIS, FLEXOR TENDON, PALM OR FINGER, EACH (WRVU 5.16) performed by Ulises Parry MD at [facility] ??? PRO TRANSPLANT FOREARM/WRIST TENDON Left 03/26/2020 TENDON TRANSPLANT OR TRANSFER, FOREARM &,OR WRIST, SINGLE; EA (WRVU 8.08) performed by Ulises Parry MD at [facility] History reviewed. No pertinent family history. Social History Socioeconomic History ??? Marital status: Spouse name: Not on file ??? Number of children: Not on file ??? Years of education: Not on file ??? Highest education level: Not on file Occupational History ??? Not on file Tobacco Use ??? Smoking status: Current Every Day Smoker Packs/day: 1.00 Types: Cigarettes ??? Smokeless tobacco: Never Used Substance and Sexual Activity ??? Alcohol use: Yes Alcohol/week: 3.0 standard drinks Types: 3 Cans of beer per week ??? Drug use: Not Currently ??? Sexual activity: Not on file Other Topics Concern ??? Do You live alone? Not Asked ??? Tobacco in Home Not Asked Social History Narrative ??? Not on file Social Determinants of Health Financial Resource Strain: ??? Difficulty of Paying Living Expenses: Food Insecurity: ??? Worried About Running Out of Food in the Last Year: ??? Ran Out of Food in the Last Year: Transportation Needs: ??? Lack of Transportation (Medical): ??? Lack of Transportation (Non-Medical): Physical Activity: ??? Days of Exercise per Week: ??? Minutes of Exercise per Session: Stress: ??? Feeling of Stress : Social Connections: ??? Frequency of Communication with Friends and Family: ??? Frequency of Social Gatherings with Friends and Family: ??? Attends Sikhism Services: ??? Active Member of Clubs or Organizations: ??? Attends Club or Organization Meetings: ??? Marital Status: Intimate Partner Violence: ??? Fear of Current or Ex-Partner: ??? Emotionally Abused: ??? Physically Abused: ??? Sexually Abused: Allergies Allergen Reactions ??? Milk Other (See Comments) Upset stomach ??? Amoxicillin Rash ??? Egg Nausea Only ??? Naproxen Other (See Comments) Gastric ulcer ??? Penicillins Rash ??? Tylenol W Codeine [Acetaminophen-Codeine] Other (See Comments) Don't know where I am, or what I'm doing Review of systems: As per HPI, otherwise non-contributory. Exam: General: NAD, alert, oriented Resp: CTAB CV: normal rate, regular rhythm A/P: Liset Hager is a 40 y.o. female here for ketty reconstruction of left index finger. - Proceed to OR. The risks, benefits and indications were reviewed with the patient and there remains an indication for surgery. Consent signed. Molly Ramos MD Plastic Surgery Resident P# [id number] documented in this encounter Miscellaneous Notes * Brief Op Note - Molly Ramos MD - 10/01/2020 10:19 AM EDT Brief Operative Note Patient Name: Liset Hager : [id number] MR#: [id number] Case Date: 10/01/2020 Surgeon: Surgeon(s) and Role: * Ulises Parry MD - Primary * Molly Ramos MD - Resident Preoperative diagnosis: finger issue Postoperative diagnosis: finger issue Procedure(s) (LRB): RECONSTRUCT TENDON KETTY, EA TENDON, W/ TENDON OR FASCIAL GRAFT (WRVU 7.31) (Left) ADJ.TISSUE TRANSFER, REARRANGEMENT, 10SQ.CM OR LESS, HANDS (WRVU 8.6) (Left) Anesthesia: General Local Findings: tourniquet time 58 minutes. A2 ketty intact. A1 ketty reconstructed with PL tendon fromR wrist. Dense scar tissue in palm released and radial lumbrical released. Z-plasty performed. Complications: none Estimated Blood Loss: 2 cc Specimens removed during surgery: None Fluids: 800 cc crystalloid PRBCs: none (See Anesthesia Record/Report for Other Blood Products) Urine Output: (no urine output recorded) Drains: none Disposition: awakened from anesthesia, extubated and taken to the recovery room in a stable condition, having suffered no apparent untoward event. Condition: doing well without problems (Please see the Surgical Encounter Summary for any Implant and Specimen details pertinent to this patient.) Infection Bundle used? N/A Post-Op Plan: - Follow up in: 10/[address] Parry/OT - Wound Check - Suture removal: None - Dressings: remove dressings - OT coordinating appointments needed: eval * Op Note - Ulises Parry MD - 10/01/2020 9:07 AM EDT [facility] [place] Patient Name: Liset Hager : [id number] MR#: [id number] Case Date: 10/01/2020 Surgeon: Surgeon(s) and Role: * Ulises Parry MD - Primary * Molly Ramos MD - Resident Preoperative diagnosis: bowstringing of left index finger Postoperative diagnosis: same Procedure(s) (LRB): RECONSTRUCT TENDON KETTY, EA TENDON, W/ TENDON OR FASCIAL GRAFT (WRVU 7.31) (Left) ADJ.TISSUE TRANSFER, REARRANGEMENT, 10SQ.CM OR LESS, HANDS (WRVU 8.6) (Left) Findings: tourniquet time 58 minutes. A2 ketty intact. A1 ketty reconstructed with PL tendon fromR wrist. Dense scar tissue in palm released. Z-plasty performed. Anesthesia: General Estimated Blood Loss: 2 cc Specimens removed during surgery: None Drains: none Surgical Closure: Primary Closure - skin incision is completely closed without any wires, kristi, drains or other devices Disposition: awakened from anesthesia, extubated and taken to the recovery room in a stable condition, having suffered no apparent untoward event. Condition: doing well without problems (Please see the Surgical Encounter Summary for any Implant and Specimen details pertinent to this patient.) HPI/Surgical Indications: Liset Hager is a 40 y.o. F who presented today for left index finger tendon ketty reconstruction with Z-plasty. The risks, benefits, and indications were reviewed andinformed consent was obtained. Procedure Description: The patient was brought to the operating room after informed consent was obtained. She was placed supine on the OR table, SCDs were applied and anesthesia was induced. She was prepped and draped in the usual sterile fashion and a timeout was held. An Esmarch was used to exsanguinate the left arm and a tourniquet was inflated to 250 mmHg. A z-plasty incision was made over her prior surgical scar on the left index finger. The skin flaps were elevated and tacked back. There was dense scar over and around the flexor tendon and a tenolysis in the palm was performed. Care wastaken to identify and protect the digital nerves. The radial lumbrical muscle was identified and released. On further exploration, the A2 ketty was identified and did appear to be intact. There was no A1 ketty present and with passive range of motion, there was some bowstringing present in this area. At this point, we then proceeded to the right wrist PL tendon harvest for A1 ketty reconstruction. Two transverse incisions were made proximally and distally over the PL tendon location on the right wrist. Dissection proceeded until the PL tendon was identified and freed along its length. The tendon was then divided proximally and distally and the incisions were closed with 4-0 Vicryl and 5-0 Chromic suture. The PL tendon was then used to reconstruct the A1 ketty on the left index finger.Two 3-0 Fiber wire sutures were secured to remnant volar plate on either side of the flexor tendon.Each suture was then passed in a Magaña-type fashion through the PL tendon graft to recreate the ketty in two layers. The sutures were secured and appropriate tension was ensured in the ketty. Theflexor tendon passed without restriction with passive range of motion. At this point the wounds were closed with 4-0 Vicryl and 4-0 Chromic, transposing the z-plasty flaps and correcting the soft tissue contracture. The tourniquet was released after 58 minutes. A dressing of band-aids and an PRACHI was applied to the right hand and xeroform, fluffs and PRACHI wrap were applied to the left. The patient tolerated the procedure well. Instrument and needle counts were correct at the end of the procedure. The patient was awakened from anesthesia and taken to recovery in stable condition. Dr. Parry was present throughout. Infection Bundle used? N/A Attestation: Case Date: 10/01/2020 I was present and I participated during the entire procedure (does not need to include opening and closing). Ulises Parry MD 10/01/2020 documented in this encounter Plan of Treatment Not on file documented as of this encounter Procedures Procedure Name Priority Date/Time Associated Diagnosis Comments ADJ.TISSUE TRANSFER, REARRANGEMENT, 10SQ.CM OR LESS, HANDS Routine 10/01/2020 10:20 AM EDT Surgery follow-up Adj Tiss Transfer Head, Fac, Hand <10Sqcm ([id number]) 10/01/2020 8:44 AM EDT Surgery follow-up Hand Tendon Ketty Reconst, Graft ([id number]) 10/01/2020 8:44 AM EDT Surgery follow-up RECONSTRUCT TENDON KETTY, EA TENDON, W/ TENDON OR FASCIAL GRAFT Routine 10/01/2020 7:36 AM EDT Surgery follow-up documented in this encounter Visit Diagnoses Diagnosis Surgery follow-up- Primary Follow-up examination, following unspecified surgery Surgery follow-up Follow-up examination, following unspecified surgery documented in this encounter Admitting Diagnoses Diagnosis Surgery follow-up Follow-up examination, following unspecified surgery documented in this encounter Administered Medications Inactive Administered Medications - up to 3 most recent administrations Medication Order MAR Action Action Date Dose Rate Site acetaminophen (Tylenol) tablet 1,000 mg 1,000 mg, Oral, ONCE, 1 dose, On Thu10/01/20 at 0800, Day of Surgery (Day of Procedure), Routine Given 10/01/2020 7:53 AM EDT 1,000 mg BUpivacaine (pf) (Marcaine) (2.5 mg/mL) 0.25% injection ONCE PRN, Starting on Thu10/01/20 at 1010, Until Thu10/01/20 at 1417, Intra-Operative (Intra-Procedure), Routine Given 10/01/2020 10:10 AM EDT 8 mLs 19- Surgical Site ketorolac (Toradol) (30 mg/mL) injection 30 mg 30 mg, Intravenous, EVERY 6 HOURS PRN, Starting on Thu10/01/20 at 1043, Until Thu10/01/20 at 1211, Pain, Day of Surgery (Day of Procedure), Routine Given 10/01/2020 10:46 AM EDT 30 mg lactated ringers infusion 1,000 mL, at 100 mL/hr, Intravenous, CONTINUOUS, Starting on Thu10/01/20 at 0800, Until Thu10/01/20 at 1211, Day of Surgery (Day of Procedure) Restarted 10/01/2020 10:28 AM EDT New Bag 10/01/2020 8:09 AM EDT 1,000 mLs 100 mL/hr lidocaine-EPINEPHrine (1% - 1:100,000) injection ONCE PRN, Starting on Thu10/01/20 at 0945, Until Thu10/01/20 at 1417, Intra-Operative (Intra-Procedure), Routine Given 10/01/2020 9:45 AM EDT 5 mLs 19- Surgical Site documented in this encounter Active and Recently Administered Medications Times are shown in EDT. Scheduled Medication Order 09/29/2020 09/30/2020 10/01/2020 acetaminophen (Tylenol) tablet 1,000 mg (COMPLETED) 1,000 mg, Oral, ONCE, 1 dose, On Thu10/01/20 at 0800, Day of Surgery (Day of Procedure), Routine 0753 (Given - Provid er: Kim Rascon RN) Continuous Medication Order 09/29/2020 09/30/2020 10/01/2020 lactated ringers infusion (CANCELED) 1,000 mL, at 100 mL/hr, Intravenous, CONTINUOUS, Starting on Thu10/01/20 at 0800, Until Thu10/01/20 at 1211, Day of Surgery (Day of Procedure) 0809 (New Bag - Prov ider: Kim Rascon RN)1027 (Paused - Provider: Nelsy Sanches CRNA - Comment: Switch to gravity)1028 (Restarted - Provider: Nelsy Sanches CRNA) PRN Medication Order 09/29/2020 09/30/2020 10/01/2020 BUpivacaine (pf) (Marcaine) (2.5 mg/mL) 0.25% injection (CANCELED) ONCE PRN, Starting on Thu10/01/20 at 1010, Until Thu10/01/20 at 1417, Intra-Operative (Intra-Procedure), Routine 1010 (Given - Provid er: Ulises Parry MD - Comment: given to left finger/hand surgical site) ketorolac (Toradol) (30 mg/mL) injection 30 mg (CANCELED) 30 mg, Intravenous, EVERY 6 HOURS PRN, Starting on Thu10/01/20 at 1043, Until Thu10/01/20 at 1211, Pain, Day of Surgery (Day of Procedure), Routine 1046 (Given - Provid er: Kim Rascon RN) lidocaine-EPINEPHrine (1% - 1:100,000) injection (CANCELED) ONCE PRN, Starting on Thu10/01/20 at 0945, Until Thu10/01/20 at 1417, Intra-Operative (Intra-Procedure), Routine 0945 (Given - Provid er: Ulises Parry MD - Comment: administered to right distal arm surgical site) documented in this encounter Care Teams Weaving Machine Operator Relationship Specialty Start Date End Date Aneta Perez PA [address] [place] [address] PCP - General Family Medicine 10/17/19 documented as of this encounter
--- OUTSIDE RECORDS SUMMARY | 2023-12-11 00:10 | XMS_ITS | Encounter Summary ---
Author Organization [facility] [place] [address] Care Team Providers Care Coding Coordinator Name Role Phone Aneta Perez Primary Care Provider [phone] Encounter Details Date Type Department Care Team (Late st Contact Info) Description 10/04/2020 Telephone [place] [phone] Do Esposito Social History Tobacco Use Types [...] * Telephone Encounter - Do Esposito - 10/04/2020 7:37 AM EDT Tucker from [facility] (Occupational Therapy) asked if we could place a referral for patient to have OT closer to home per pt request. ([facility] pt) I have sent an inbasket to our nurses asking to place an external referral. documented in this encounter Plan of Treatment Not on file documented as of this encounter Visit Diagnoses Not on filedocumented in this encounter Care Teams Coding Coordinator Relationship Specialty Start Date End Date Aneta Perez PA [address] [place] [id number] PCP - General Family Medicine 10/17/19 documented as of this encounter
--- OUTSIDE RECORDS SUMMARY | 2023-12-11 00:10 | XMS_ITS | Encounter Summary ---
[facility] Organization [facility] [place] [address] Care Team Providers Care Crimp Setter Name Role Phone Aneta Perez Primary Care Provider [phone] Encounter Details Date Type Department Care Team (Latest Contact Info) Description 05/21/2022 Travel Social History Tobacco Use Types Packs/Day [...] on filedocumented in this encounter Care Teams Crimp Setter Relationship Specialty Start Date End Date Aneta Perez PA [address] [place] [id number] PCP - General Family Medicine 10/17/19 documented as of this encounter
--- OUTSIDE RECORDS SUMMARY | 2023-12-11 00:10 | XMS_ITS | Encounter Summary ---
[place] [address] Care Team Providers Care Medical Concierge Name Role Phone Aneta Perez Primary Care Provider [phone] Reason for Visit * Auth/Cert Specialty Diagnoses / Procedures Referred By Roberto palomares Referred To Contact Diagnoses finger issue Procedures PRO HAND TENDON KETTY RECONST, GRAFT RECONSTRUCT TENDON KETTY, EA TENDON, W/ TENDON OR FASCIAL GRAFT (WRVU 7.31) Referral ID Status Reason Start Date Expiration Date Visits Re quested Visits Authorized [id number] 1 1 Encounter Details Date Type Department Care Team (Late st Contact Info) Description 10/01/2020 8:45 AM EDT Anesthesia Event [place] [address] Rianna Ramírez DO [facility] [place] [address] Mariano Soares MD [facility] [place] [address] Anesthesia Record Procedure Summary Procedure Name Responsible Anesthesiologist Anesthesia Start Time Anesthesia Stop Time RECONSTRUCT TENDON KETTY, EA TENDON, W/ TENDON OR FASCIAL GRAFT (WRVU 7.31) (Left: Hand) Rianna Ramírez DO 10/01/20 0845 10/01/20 1028 Events Date Time Event Comment 10/01/2020 0759 0845 AN Verify 0845 Start 0845 An Start Data 0848 An Induction 0849 An Intubation 0851 Anesthesia Ready 0856 Break/Relief In I assumed ca re for Break Relief before which we: 1. Identified the patient 2. Identified the responsible provider(s) 3. Reviewed the pertinent medical history 4. Discussed the surgical plan and course 5. Reviewed intra-op anesthesia management and issues during anesthesia 6. Set expectations for the relief (and/or post-procedure) period 7. Allowed opportunity for questions and acknowledgement of understanding T Walker, DO 0906 An Tourn Inflated 0908 Procedure Start 0913 Break/Relief Out 0938 Quick Note Local injection , 1% lidocaine with epi, right wrist 1003 Quick Note Local injection , 0.25% marcaine plain, left hand 1005 An Tourn Deflated 1021 Extubation/LMA Out 1021 an stop data 1028 Recovery or ICU Handoff Rosa ent care was transferred to the destination unit staff after review of the patient's medical history, current anesthetic/surgical status and plan, according to the Provider Handoff Checklist. 1028 Stop Meds Name Total Midazolam 2 mg fentaNYL 100 mcg IV Lidocaine 30 mg Propofol 200 mg Propofol INF 322 mg Dexmedetomidine 12 mcg Dexamethasone 8 mg Ondansetron 8 mg HYDROmorphone 1 mg lactated ringers infusion 800 mL * Agents Name O2 Air N2O Sevoflurane (et) * Blood No blood administrations on file. Lines, Drains, and Airways Type Details Placement Removal Incision 12/05/19; 1128; [place] finger; 01/27/22 (LDA cleanup utility RA#[id number]); 1715 (LDA cleanup utility RA#[id number]) 12/05/19 1128 by Verna Oliver RN 01/27/22 1715 by Heidy Kearns Incision 12/05/19; 1140; wris t; 01/27/22 (LDA cleanup utility RA#[id number]); 1715 (LDA cleanup utility RA#[id number]) 12/05/19 1140 by Verna Oliver RN 01/27/22 1715 by Heidy Kearns Incision 03/26/20; 1221; hand ; 01/27/22 (LDA cleanup utility RA#[id number]); 1715 (LDA cleanup utility RA#[id number]) 03/26/20 1221 by Johnathon Watt RN 01/27/22 1715 by Heidy Kearns (RETIRED) Peripheral IV Line - Single Lumen 05/03/21; 0808; cephalic vein (lateral side of arm), right; [id number] catheter system; Anatomical Landmarks; 22 gauge, 3/4 in length; Sheila Ramírez MD; intradermal injection, distraction, tolerated well; 10/01/20; 1210 10/01/20 0808 by Kim Rascon RN 10/01/20 1210 by Kim Rascon RN Supraglottic Mask Ventilation: Ea sy (1); LMA Type: iGel; LMA Size: 3; Inserted by: CAMILA Esquivel; Removal Date: 10/01/20; Removal Time: 1021 10/01/20 0849 by Nelsy Sanches EDITORIAL MANAGER 10/01/20 1021 by Nelsy Sanches CRNA Incision 10/01/20; 0908; Left , anterior; second finger; 01/27/22 (LDA cleanup utility RA#[id number]); 1715 (LDA cleanup utility RA#[id number]) 10/01/20 0908 by Rashmi Antoine RN 01/27/22 1715 by Heidy Kearns Incision 10/01/20; 0945; anterior, distal, lower; arm (two small incisions); 01/27/22 (LDA cleanup utility RA#[id number]); 1715 (LDA cleanup utility RA#[id number]) 10/01/20 0945 by Rashmi Antoine RN 01/27/22 1715 by Heidy Kearns documented in this encounter Social History Tobacco [...] OR Notes * Anesthesia Postprocedure Evaluation - Rianna Ramírez DO - 10/01/2020 2:54 PM EDT Department of Anesthesiology Post-procedure Note Patient: Liset Hager Procedure Summary Date: 10/01/20 Room / Location: [address] [facility] Anesthesia Start: 844 Anesthesia Stop: 1028 Procedures: RECONSTRUCT TENDON KETTY, EA TENDON, W/ TENDON OR FASCIAL GRAFT (WRVU 7.31) (Left Hand) ADJ.TISSUE TRANSFER, REARRANGEMENT, 10SQ.CM OR LESS, HANDS (WRVU 8.6) (Left Hand) Diagnosis: Surgery follow-up (finger issue) Surgeons: Ulises Parry MD Responsible Provider: Rianna Ramírez DO Anesthesia Type: general ASA Status: 2 All Anesthesia Providers: Anesthesiologist: Rianna Ramírez DO EDITORIAL MANAGER: Nelsy Sanches CRNA Vitals Value Taken Time BP 144/79 10/01/20 1145 Temp Pulse 87 10/01/20 1156 Resp 20 10/01/20 1030 SpO2 95 % 10/01/20 1156 Pain Level 0 10/01/20 1200 Vitals shown include unvalidated device data. Patient Location: PACU/[facility] Level of Consciousness: Awake and Alert Pain Management: Satisfactory Analgesia PONV: None Cardiovascular Status: At Baseline and Hemodynamically Stable Respiratory Status: At Baseline and Room Air Postoperative Fluid Status: Intravascular EUvolemia Possible Anesthetic Complications: NONE apparent at time of evaluation Final Primary Anesthesia Type: General (The anesthetic type performed was the same as planned.) Comments: Rianna Ramírez DO * Anesthesia Preprocedure Evaluation - Rianan Ramírez DO - 10/01/2020 7:17 AM EDT Pre-Anesthesia Evaluation for: Liset Hager a 40 y.o. female. Procedure(s): RECONSTRUCT TENDON KETTY, EA TENDON, W/ TENDON OR FASCIAL GRAFT (WRVU 7.31) Patient Active Problem List Diagnosis ??? Surgery follow-up Added automatically from request for surgery [id number] ??? Other specified diabetes mellitus with other specified complication ??? Chronic pain of both knees ??? Tendon rupture of wrist Added automatically from request for surgery [id number] ??? Tendon dysfunction ??? Rheumatoid arthritis involving multiple sites with positive rheumatoid factor ??? High risk medication use ??? Degenerative joint disease involving multiple joints ??? Cigarette smoker ??? Graves disease ??? Depression ??? Anxiety History reviewed. No pertinent past medical history. Past Surgical History: Procedure Laterality Date ? ? PRO ADJ TISS XFER HEAD, FAC, HAND <10SQCM Left 03/26/2020 ADJ.TISSUE TRANSFER, REARRANGEMENT, 10SQ.CM OR LESS, HANDS (WRVU 8.6) performed by Monique Parry MD at [facility] ? ? PRO TENOLYSIS FLEX TENDON, PALM & FINGER, EA Left 12/05/2019 TENOLYSIS, FLEXOR TENDON, PALM AND FINGER EACH (WRVU 9.75) performed by Ulises Parry MD at [facility] ??? PRO TENOLYSIS, FLEX TENDON, PALM/FINGER, EA Left 03/26/2020 TENOLYSIS, FLEXOR TENDON, PALM OR FINGER, EACH (WRVU 5.16) performed by Ulises Parry MD at [facility] ??? PRO TRANSPLANT FOREARM/WRIST TENDON Left 03/26/2020 TENDON TRANSPLANT OR TRANSFER, FOREARM &,OR WRIST, SINGLE; EA (WRVU 8.08) performed by Ulises Parry MD at [facility] Social History Tobacco Use ??? Smoking status: Current Every Day Smoker Packs/day: 1.00 Types: Cigarettes ??? Smokeless tobacco: Never Used Substance Use Topics ??? Alcohol use: Not on file Social History Substance and Sexual Activity Drug Use Not on file Allergies Allergen Reactions ??? Milk Other (See Comments) Upset stomach ??? Amoxicillin Rash ??? Egg Nausea Only ??? Naproxen Other (See Comments) Gastric ulcer ??? Penicillins Rash ??? Tylenol W Codeine [Acetaminophen-Codeine] Other (See Comments) Don't know where I am, or what I'm doing Medications: MAR and/or home medications have been reviewed. Physical Exam: Preprocedure Vitals Current as of 10/01/20 0717 No BP, pulse, respiration, SpO2, or temperature recorded. Height: Weight: BMI: IBW: Airway Assessment: Mallampati: II TM distance: >3 FB Neck ROM: full Cardiovascular Assessment: Rhythm: regular Pulmonary Assessment: breath sounds clear to auscultation Dental Assessment: - normal exam Misc Assessment: Patient is wearing No contact(s). IV access: Peripheral line Last Filed Perioperative Cognitive Screening None Anesthesia Plan: ASA 2 general, with a(n) intravenous induction 40 Y/o female for Reconstruction Tendon L Hand No hx of difficulty w anesthesia Hx sig for Depression/Anxiety, RA, Tob use, Graves Dz Denies CP/SOB/Orthopnea/Active DAMON ss/Acute illness or direct COVID19 exposure Appears and feels well today Plan GA/LMA/EVA/VA and IV maint/p op pacu care and IV pain control w local per surgical service. Antiemetics The patient was informed of the risks, benefits and alternatives of anesthesia. These risks included, but were not limited to, post-operative nausea and/or vomiting, pain, sore throat, dental/lip trauma, and other rare but serious complications such as major organ damage, awareness, severe allergicreactions, position-related nerve injuries, and need blood transfusions. All questions were sought and answered. Consent was signed and placed in chart. Region - Other Informed Consent: Anesthetic plan and risks discussed with patient. Plan discussed with EDITORIAL MANAGER. PAT Clinic Note documented in this encounter Plan of Treatment Not on file documented as of this encounter Visit Diagnoses Not on filedocumented in this encounter Administered Medications Inactive Administered Medications - up to 3 most recent administrations Medication Order MAR Action Action Date Dose Rate Site dexamethasone (Decadron) injection Intravenous, PRN, Starting on Thu10/01/20 at 0849, Until Thu10/01/20 at 1030, Anesthesia Intra-op, Routine Given 10/01/2020 8:49 AM EDT 8 mg dexmedetomidine (Precedex) (4 mcg/mL) bolus injection (Anesthsia) Intravenous, PRN, Starting on Thu10/01/20 at 0921, Until Thu10/01/20 at 1030, Anesthesia Intra-op, Routine Given 10/01/2020 9:29 AM EDT 4 mcg Given 10/01/2020 9:24 AM EDT 4 mcg Given 10/01/2020 9:21 AM EDT 4 mcg fentaNYL (pf) (50 mcg/mL) multi-dose injection Intravenous, PRN, Starting on Thu10/01/20 at 0845, Until Thu10/01/20 at 1030, Anesthesia Intra-op, Routine Given 10/01/2020 8:55 AM EDT 50 mcg Given 10/01/2020 8:45 AM EDT 50 mcg HYDROmorphone (Dilaudid) (2 mg/mL) multi-dose injection solution Intravenous, PRN, Starting on Thu10/01/20 at 0915, Until Thu10/01/20 at 1030, Anesthesia Intra-op, Routine Given 10/01/2020 9:37 AM EDT 0.5 mg Given 10/01/2020 9:15 AM EDT 0.5 mg lactated ringers infusion 1,000 mL, at 100 mL/hr, Intravenous, CONTINUOUS, Starting on Thu10/01/20 at 0800, Until Thu10/01/20 at 1211, Day of Surgery (Day of Procedure) Restarted 10/01/2020 10:28 AM EDT New Bag 10/01/2020 8:09 AM EDT 1,000 mLs 100 mL/hr lidocaine (pf) (Xylocaine) (20 mg/mL) 2% injection syringe Intravenous, PRN, Starting on Thu10/01/20 at 0848, Until Thu10/01/20 at 1030, Anesthesia Intra-op, Routine Given 10/01/2020 8:48 AM EDT 30 mg midazolam (pf) (Versed) (1 mg/mL) multi-dose injection Intravenous, PRN, Starting on Thu10/01/20 at 0845, Until Thu10/01/20 at 1030, Anesthesia Intra-op, Routine Given 10/01/2020 8:46 AM EDT 1 mg Given 10/01/2020 8:45 AM EDT 1 mg ondansetron (pf) (Zofran) (2 mg/mL) injection Intravenous, PRN, Starting on Thu10/01/20 at 0856, Until Thu10/01/20 at 1030, Anesthesia Intra-op, Routine Given 10/01/2020 10:09 AM EDT 8 mg propofoL (Diprivan) 10 mg/mL bolus injection (Anesthesia) Intravenous, PRN, Starting on Thu10/01/20 at 0848, Until Thu10/01/20 at 1030, Anesthesia Intra-op Given 10/01/2020 8:48 AM EDT 200 mg propofoL (Diprivan) infusion Intravenous, CONTINUOUS PRN, Starting on Thu10/01/20 at 0851, Until Thu10/01/20 at 1030, Anesthesia Intra-op, Routine Rate/Dose Change 10/01/2020 9:39 AM EDT 50 mcg/kg/min 21 mL/hr Rate/Dose Change 10/01/2020 9:11 AM EDT 75 mcg/kg/min 31.5 mL/hr New Bag 10/01/2020 8:51 AM EDT 50 mcg/kg/min 21 mL/hr documented in this encounter Care Teams Medical Concierge Relationship Specialty Start Date End Date Aneta Perez PA [address] [place] [address] PCP - General Family Medicine 10/17/19 documented as of this encounter
--- OUTSIDE RECORDS SUMMARY | 2023-12-11 00:10 | XMS_ITS | Encounter Summary ---
[facility] [place] [address] Care Team Providers Care Pipe Recovery Specialist Name Role Phone Aneta Perez Primary Care Provider [phone] Encounter Details Date Type Department Care Team (Latest Contact Info) Description 06/25/2022 Travel Social History Tobacco Use Types Packs/Day [...] on filedocumented in this encounter Care Teams Pipe Recovery Specialist Relationship Specialty Start Date End Date Aneta Perez PA [address] [place] [id number] PCP - General Family Medicine 10/17/19 documented as of this encounter
--- OUTSIDE RECORDS SUMMARY | 2023-12-11 00:10 | XMS_ITS | Encounter Summary ---
Author [place] [address] Care Team Providers Care Mine Administrator Supervisor Name Role Phone Aneta Perez Primary Care Provider [phone] Encounter Details Date Type Department Care Team (Late st Contact Info) Description 07/23/2022 Telephone [place] [phone] Adrianna Castillo Social History Tobacco Use Types Packs/Day Years [...] on filedocumented in this encounter Care Teams Mine Administrator Supervisor Relationship Specialty Start Date End Date Aneta Perez PA [address] [place] [id number] PCP - General Family Medicine 10/17/19 documented as of this encounter
--- OUTSIDE RECORDS SUMMARY | 2023-12-11 00:10 | XMS_ITS | Encounter Summary ---
Author Organization [facility] Address [facility] [place] [address] Care Team Providers Care Blind Aide Name Role Phone Aneta Perez Primary Care Provider [phone] Reason for Visit * Auth/Cert (Routine) Specialty [...] EACH MUSCLE (WRVU 5.5) Ulises Parry MD [facility] [place] [address] [facility] Referral ID Status Reason Start Date Expiration Date Visits Re quested Visits Authorized [id number] 1 1 Encounter Details Date Type Department Care Team (Latest Contact Info) Description 07/22/2022 8:45 AM EST - 07/22/2022 1:20 PM EST Hospital Encounter [place] [address] Ulises Parry MD [facility] [place] [address] Surgery follow-up Discharge Disposition: Home Social History Tobacco Use Types Packs/Day Years [...] Mass Index 25.61 07/22/2022 9:52 AM EST documented in this encounter Discharge Instructions * Discharge Instructions* Sandrine Ritchie RN - 07/22/2022 12:45 PM EST General Anesthesia Discharge Instructions Go home and [...] closest emergency room or call the hospital needle punch machine operator at [phone] operations clerk covering for your physician. Questions or problems after 5pm or on a weekend: Call the [facility] needle punch machine operator at and ask for the physician court operations clerk covering for your doctor. At 10:00 am you received 1000 mg of acetaminophen- Your next dose should not be taken before 8 hours have passed. Next dose not before- 6:00 p.m. You should not take more than a total of 3000 mg of acetaminophen in a 24 hour period. * Patient Instructions* Ulises Steel MD - 07/22/2022 12:27 PM EST Hand Discharge Instructions Keep splint on and dry at all times until your follow-up appointment. For fingers not included in the splint: OK to move your fingers. Do not use your fingers. Keep hand elevated at all times until your follow-up appointment. Take Ibuprofen (Motrin, Advil) and acetaminophen (Tylenol) around the clock for pain relief. Take narcotic pain medication as needed for breakthrough pain. Call our office if: Fingers in splint are white, numb or cold. You have signs of infection A temperature over 100.4 F. Redness of the incision lines that is beginning to spread away from the incision. Yellow pus-like or foul smelling drainage from the incision. Increase pain/discomfort that is not relieved by your pain medication. To make an appointment or for questions about scheduling, please contact our administrative officesat [phone] For clinical questions, please call our nurses at [phone] Both offices are open Thursday thru Thursday 8a - 5p. With emergencies after hours, call the hospital needle punch machine operator at [phone] and ask for the Plastic Surgery Resident court operations clerk. DISCHARGE INSTRUCTIONS CONTACT INFORMATION: During office hours (Thursday through Thursday 8 am to 5 pm): Call [phone]. On weekends or after hours: Call [phone] and ask the needle punch machine operator to speak to the Plastic Surgery Resident on-call. FOLLOW-UP APPOINTMENTS: You follow-up appointment has been scheduled. Please call [phone] if you have not received a phone call or letter with your appointment in a timely fashion. Your follow-up has been scheduled: Future Appointments Date Time Provider Department Center 07/30/2022 2:30 PM Ulises Parry MD [facility] 07/30/2022 2:30 PM Shyanne Brar, MARIA L [facility] OT [facility] 11/25/2022 10:30 AM Zak Lee MD [facility] documented in this encounter Medications at Time of Discharge Medication Sig Dispensed Refills Start Date End Date ondansetron ODT (Zofran-ODT) 4 mg Tablet, Rapid DissolveIndications:High risk medication use,Infusion reaction, subsequent encounter,Drug-induced nausea and vomiting Take 1 tablet by mouth every 8 hours as needed for Nausea. 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 100 tablet 1 05/23/2022 acetaminophen (Tylenol) 325 mg Tablet 2 tabs esomeprazole (NexIUM) 40 mg Capsule, Delayed Release(E.C.) 05/13/2022 Insulin Tresiba FlexTouch U-100 100 unit/mL (3 mL) Insulin Pen 03/11/2022 LORazepam (Ativan) 1 mg Tablet 1 mg. 05/06/2022 QUEtiapine (SEROquel) 50 mg Tablet 05/05/2022 traZODone (Desyrel) 100 mg Tablet Take 200 mg by mouth nightly. 05/06/2022 amitriptyline (Elavil) 25 mg Tablet 05/06/2022 atorvastatin (Lipitor) 40 mg Tablet 05/06/2022 lamoTRIgine (LaMICtal) 200 mg Tablet Take 200 mg by mouth 2 times daily. 05/06/2022 metFORMIN XR (Glucophage XR) 500 mg Tablet Sustained Release 24 hr Take 500 mg by mouth 2 times daily. 3 tablets at night, 2 tablets in AM, pt reported 05/06/2022 diclofenac (Voltaren) 1 % Gel Apply 2 [...] hours as needed for Pain. 10 tablet 07/22/2022 07/30/2022 documented as of this encounter Progress Notes * Sandrine Ritchie RN - 07/22/2022 12:22 PM EST Discharge instructions and medications reviewed with patient and Jills. All questions answered and written copy sent home with patient. Refreshments, snacks, bathroom offered prior to discharge. Patient has sling as needed. Patient ambulated to car for discharge accompanied by [facility] staff member. documented in this encounter H&P Notes * Ulises Steel MD - 07/22/2022 10:35 AM EST Patient Name: Liset Hager Patient Age: 41 y.o. Birthdate: 1980 Admit date: 07/22/2022 Attending Physician: Ulises Parry MD Plastic Surgery Preoperative H&P: Patient Name: Liset Hager Patient : 1980 Today's Date: 07/22/2022 Liset Hager is a 41 y.o. female who presents today for left index finger tenolysis and possible tendon transfer No changes since last seen. History reviewed. No pertinent past medical history. Past Surgical History: Procedure Laterality Date ? ? PRO ADJ TISS XFER HEAD, FAC, HAND <10SQCM Left 03/26/2020 ADJ.TISSUE TRANSFER, REARRANGEMENT, 10SQ.CM OR LESS, HANDS (WRVU 8.6) performed by Monique Parry MD at [facility] ? ? PRO ADJ TISS XFER HEAD, FAC, HAND <10SQCM Left 10/01/2020 ADJ.TISSUE TRANSFER, REARRANGEMENT, 10SQ.CM OR LESS, HANDS (WRVU 8.6) performed by Monique Parry MD at [facility] ??? PRO HAND TENDON KETTY RECONST, GRAFT Left 10/01/2020 RECONSTRUCT TENDON KETTY, EA TENDON, W/ TENDON OR FASCIAL GRAFT (WRVU 7.31) performed by Ulises Parry MD at [facility] ? ? PRO TENOLYSIS FLEX TENDON, PALM & FINGER, EA Left 12/05/2019 TENOLYSIS, FLEXOR TENDON, PALM AND FINGER EACH (WRVU 9.75) performed by Ulises Parry MD at [facility] ??? PRO TENOLYSIS, FLEX TENDON, PALM/FINGER, EA Left 03/26/2020 TENOLYSIS, FLEXOR TENDON, PALM OR FINGER, EACH (WRVU 5.16) performed by Ulises Parry MD at [facility] ??? PRO TRANSPLANT FOREARM/WRIST TENDON Left 03/26/2020 TENDON TRANSPLANT OR TRANSFER, FOREARM &,OR WRIST, SINGLE; EA (WRVU 8.08) performed by Ulises Parry MD at [facility] History reviewed. No pertinent family history. Social History Socioeconomic History ??? Marital status: Spouse name: Not on file ??? Number of children: Not on file ??? Years of education: Not on file ??? Highest education level: Not on file Occupational History ??? Not on file Tobacco Use ??? Smoking status: Every Day Packs/day: 1.00 Years: 15.00 Pack years: 15.00 Types: Cigarettes ??? Smokeless tobacco: Never Substance and Sexual Activity ??? Alcohol use: Not Currently ??? Drug use: Not Currently ??? Sexual activity: Not on file Other Topics Concern ??? Do You live alone? Not Asked ??? Tobacco in Home Not Asked Social History Narrative ??? Not on file Social Determinants of Health Financial Resource Strain: Not on file Food Insecurity: Not on file Transportation Needs: Not on file Physical Activity: Not on file Housing Stability: Not on file Allergies Allergen Reactions ??? [...] As per HPI, otherwise non-contributory. Exam: General: NAD Resp: CTAB CV: normal rate, regular rhythm A/P: Liset Hager is a 41 y.o. female who presents today for left index finger tenolysis and possible tendon transfer No changes since last seen. - Proceed to OR. The risks, benefits and indications were reviewed with the patient and there remains an indication for surgery. Consent signed. - Preoperative abx not required - Surgical site marked Ulises Steel MD Plastic Surgery Resident documented in this encounter Miscellaneous Notes * Brief Op Note - Ulises Parry MD - 07/22/2022 12:19 PM EST Brief Operative Note Patient Name: Liset Hager : [id number] MR#: [id number] Case Date: 07/22/2022 Surgeon: Surgeon(s) and Role: * Ulises Parry MD - Primary * Ulises Steel MD - Resident - Assisting Preoperative diagnosis: tendon/flexor rupture Postoperative diagnosis: tendon/flexor rupture Procedure(s) (LRB): TRANSFER OR TRANSPLANT TENDON, PALMAR, W/O FREE TENDON GRAFT, EACH (WRVU 7.89) (Left)-FDS long to FDP index (side to side) Tenolysis flexor tendon finger and palm Anesthesia: Local , Conscious sedation Findings: Left index finger FDP tenolysis, tenodesis of left index FDP to long FDS, A2 ketty recon, severe amount of scar tissue encountered, prior A1 ketty recon intact Complications: None Estimated Blood Loss: 2 mL Specimens removed during surgery: None Fluids: Intraprocedure Crystalloid Total Output Blood Loss 2 mL Total Output 2 mL PRBCs: none (See Anesthesia Record/Report for Other Blood Products) Urine Output: (no urine output recorded) Drains: None Disposition: aroused from sedation, and taken to the recovery room in a stable condition Condition: doing well without problems (Please see the Surgical Encounter Summary for any Implant and Specimen details pertinent to this patient.) Surgical Infection Prevention Bundle Used? No Post-Op Plan: - Follow up in: 3/ days with attending - Wound Check - Suture removal: None - Dressings: remove dressings - Casting Needs: OT for thermoplastic dorsal blocking splint - Other coordinating appointments needed: OT Future Appointments Date Time Provider Department Center 07/30/2022 2:30 PM Ulises Parry MD [facility] 07/30/2022 2:30 PM Shyanne Brar OT [facility] 11/25/2022 10:30 AM Zak Lee MD [facility] * Op Note - Ulises Parry MD - 07/22/2022 10:57 AM EST [facility] Operative Note Patient Name: Liset Hager : [id number] MR#: [id number] Case Date: 07/22/2022 Surgeon: Surgeon(s) and Role: * Ulises Parry MD - Primary * Ulises Steel MD - Resident - Assisting Preoperative diagnosis: tendon/flexor rupture L index finger Postoperative diagnosis: tendon/flexor rupture L index finger Procedure(s) (LRB): TRANSFER OR TRANSPLANT TENDON, PALMAR, W/O FREE TENDON GRAFT, EACH (WRVU 7.89) (Left) Tenolysis flexor tendon A2 ketty repair Anesthesia: MAC Estimated Blood Loss: 2 mL Specimens removed during surgery: None Drains: * No LDAs found * Surgical Closure: Primary Closure - skin incision is completely closed without any wires, kristi, drains or other devices Disposition: awakened from anesthesia, extubated and taken to the recovery room in a stable condition, having suffered no apparent untoward event. Condition: doing well without problems (Please see the Surgical Encounter Summary for any Implant and Specimen details pertinent to this patient.) HPI/Surgical Indications: 41-year-old female status post multiple procedures of the left hand with left index finger FDP tenolysis and FDP to FDP transfer and prior A1 ketty repair. She continues to have poor motion at the index finger PIP and DIP joints, risks, benefits, alternatives of exploration tenolysis and revision tendon transfer were discussed with the patient and informed consent obtained. Procedure Description: Once informed consent has been obtained the left hand was marked for surgery. Patient desired to proceed. She was subsequently back to the operating room, placed supine operating table, and after adequate sedation infiltration of the left index finger palm and carpal tunnel was performed. After adequate time was allowed for numbing and hemostasis we began opening the prior incisions in the distalpalm and base of the index finger. The radial ulnar neurovascular bundles were identified and protected. The profundus tendon was identified the previous A1 ketty reconstruction had held and was intact. There is dense scarring of the profundus tendon at the level of the A2 ketty. Extensive tenolysis revealed dense adhesions to the ketty and required full release which we did an oblique manner.Once this was done traction of the profundus tendon in the palm led to flexion of the PIP joint. Since the A2 ketty was divided in oblique manner was repaired with 4-0 Tycron suture. Once again traction was applied at the profundus tendon to the level of the mid palm and good PIP flexion was noted. No bowstringing was noted at the A1 or A2 pulleys. The patient was lightened from her sedation andattempt to flex the index finger revealed an adequate motion of the profundus tendon therefore an incision was made at the prior carpal tunnel extending into the proximal forearm with the previous FDP along the FDP of index repair was performed this repair was completely intact full motion was noted at both these tendons. Many of the profundus tendons appear to be weakened. Therefore decision wasmade to do a FDS of the long the FDP of the index transfer. Unfortunately the patient was unable tofully tolerate lying of the sedation and therefore was unable to comply with commands. The tension was set with the index finger and slight increase flexion to parents's into the long. This was done in a cytocide fashion utilizing 3-0 FiberWire suture. All wounds were then copiously irrigated with saline solution. Skin was closed with deep 4- 0 Vicryl and superficial 4-0 Chromic Gut suture. The end the case all fingers warm pink with decent cap refill. She was placed on dorsal blocking splint and delivered to PACU in stable condition. I was present for and performed entire procedure with the resident. Surgical Infection Prevention Bundle Used? No Attestation: Case Date: 07/22/2022 I was present and I participated during the entire procedure (does not need to include opening and closing). Ulises Parry MD 07/23/2022 documented in this encounter Plan of Treatment Not on file documented as of this encounter Procedures Procedure Name Priority Date/Time Associated Diagnosis Comments Release Muscles Of Hand (42194) 07/22/2022 10:39 AM EST Surgery follow-up Transplant Palm Tendon (42951) 07/22/2022 10:39 AM EST Surgery follow-up POCT FINGERSTICK GLUCOSE Routine 07/22/2022 9:54 AM EST POCT GLUCOSE Routine 07/22/2022 9:34 AM EST RELEASE, INTRINSIC MUSCLES OF HAND, EACH MUSCLE Routine 07/22/2022 9:25 AM EST Surgery follow-up TRANSFER OR TRANSPLANT TENDON, PALMAR, W/O FREE TENDON GRAFT, EACH Routine 07/22/2022 9:25 AM EST Surgery follow-up documented in this encounter Results * POCT Fingerstick Glucose (07/22/2022 9:54 AM EST) POC Glucose 83 60 - 199 mg/dl Comment:RN notified HH 07/22/2022 9:54 AM EST Ulises Parry MD POINT OF CARE TEST ORDERABLES * POCT Glucose (07/22/2022 9:34 AM EST) POC Glucose 83 65 - 199 mg/dL [facility] Comment: Supplemental ranges: <140 mg/dL before meals <180 mg/dL all other times of the day Blood 07/22/2022 9:34 AM EST 07/22/2022 9:34 AM EST Ulises Parry MD POINT OF CARE TEST ORDERABLES [facility] [place] [address] documented in this encounter Visit Diagnoses Diagnosis Surgery follow-up Follow-up examination, following unspecified surgery documented in this encounter Administered Medications Inactive Administered Medications - up to 3 most recent administrations Medication Order MAR Action Action Date Dose Rate Site acetaminophen (Tylenol) tablet 1,000 mg 1,000 mg, Oral, ONCE, 1 dose, On Thu07/22/22 at 0945, Maximum dose of acetaminophen is 4000 mg from all sources in 24 hours. When ordered for pain, acetaminophen should be given even when other ordered pain medications are indicated. , Day of Surgery (Day of Procedure), Routine Given 07/22/2022 9:47 AM EST 1,000 mg documented in this encounter Active and Recently Administered Medications Times are shown in EST. Scheduled Medication Order 07/20/2022 07/21/2022 07/22/2022 acetaminophen (Tylenol) tablet 1,000 mg (COMPLETED) 1,000 mg, Oral, ONCE, 1 dose, On Thu07/22/22 at 0945, Maximum dose of acetaminophen is 4000 mg from all sources in 24 hours. When ordered for pain, acetaminophen should be given even when other ordered pain medications are indicated. , Day of Surgery (Day of Procedure), Routine 0947 (Given - Provid er: Kenia Caballero RN) Continuous Medication Order 07/20/2022 07/21/2022 07/22/2022 lactated ringers infusion (CANCELED) 1,000 mL, at 100 mL/hr, Intravenous, CONTINUOUS, Starting on Thu07/22/22 at 0945, Until Thu07/22/22 at 1310, Day of Surgery (Day of Procedure) 1043 (New Bag - Prov ider: Nelsy Sanches CRNA) PRN Medication Order 07/20/2022 07/21/2022 07/22/2022 lidocaine-EPINEPHrine (1% - 1:100,000) injection (CANCELED) ONCE PRN, Starting on Thu07/22/22 at 1058, Until Thu07/22/22 at 1525, Intra-Operative (Intra-Procedure), Routine 1058 (Given - Provid er: Ulsies Parry MD)1110 (Given - Provider: Ulises Parry MD) oxyCODONE (Roxicodone) tablet 5 mg 5 mg, Oral, EVERY 4 HOURS PRN, Starting on Thu07/22/22 at 1231, Until Thu07/22/22 at 1525, Pain, Routine documented in this encounter Care Teams Blind Aide Relationship Specialty Start Date End Date Aneta Perez PA [address] [place] [id number] PCP - General Family Medicine 10/17/19 documented as of this encounter
--- OUTSIDE RECORDS SUMMARY | 2023-12-11 00:10 | XMS_ITS | Encounter Summary ---
Author Organization [facility] [place] [address] Care Team Providers Care Health And Safety Trainer Name Role Phone Aneta Perez Primary Care Provider [phone] Reason for Visit * Reason Onset Date Comments New Medication Request 02/20/2021 Encounter Details Date Type Department Care Team (Late st Contact Info) Description 02/20/2021 [place] [phone] Juan Manuel Sapp RN New Medication Request Social History Tobacco Use Types Packs/Day Years [...] Encounter - Juan Manuel Sapp RN - 03/04/2021 8:31 PM EDT Mailed Rx to Liset. * Telephone Encounter - Juan Manuel Sapp RN - 02/20/2021 1:12 PM EDT Call received from [facility] asking for increased dose of Celebrex. States current dose not very effective. Zak Lee MD sent to Juan Manuel Sapp RN Caller: Unspecified (5 days ago, ??9:12 AM) Okay, I signed off on it as a FAX Rx. Just remind them that she had an ulcer on naproxen before andto make sure she's still on omeprazole. Thanks, Krzysztof ?? Called and spoke with Jammie and Liset has been discharged to home. Called and spoke with Liset and she is taking Omeprazole. Liset would like the prescription mailed to her home address. Will mail once signed by . documented in this encounter Plan of Treatment Not on file documented as of this encounter Visit Diagnoses Not on filedocumented in this encounter Care Teams Health And Safety Trainer Relationship Specialty Start Date End Date Aneta Perez PA [address] [place] [id number] PCP - General Family Medicine 10/17/19 documented as of this encounter
--- OUTSIDE RECORDS SUMMARY | 2023-12-11 00:10 | XMS_ITS | Encounter Summary ---
[place] [address] Care Team Providers Care Investigator Name Role Phone Aneta Perez Primary Care Provider [phone] Encounter Details Date Type Department Care Team (Late st Contact Info) Description 05/27/2022 [place] [phone] Bethany Watts Social History Tobacco Use Types Packs/Day Years [...] on filedocumented in this encounter Care Teams Investigator Relationship Specialty Start Date End Date Aneta Perez PA [address] [place] [id number] PCP - General Family Medicine 10/17/19 documented as of this encounter
--- OUTSIDE RECORDS SUMMARY | 2023-12-11 00:10 | XMS_ITS | Encounter Summary ---
Author Organization [facility] [place] [address] Care Team Providers Care Business Segment Manager Name Role Phone Aneta Perez Primary Care Provider [phone] Reason for Visit * Auth/Cert (Routine) Specialty Diagnoses / Procedures Referred By Roberto palomares Referred To Contact Diagnoses Encounter for follow-up examination after completed treatment for conditions other than malignant neoplasm tendon/flexor rupture Procedures PRO TRANSPLANT PALM TENDON PRO RELEASE MUSCLES OF HAND TRANSFER OR TRANSPLANT TENDON, PALMAR, W/O FREE TENDON GRAFT, EACH (WRVU 7.89) RELEASE, INTRINSIC MUSCLES OF HAND, EACH MUSCLE (WRVU 5.5) Ulises Parry MD [facility] [place] [address] [facility] Referral ID Status Reason Start Date Expiration Date Visits Re quested Visits Authorized [id number] 1 1 Encounter Details Date Type Department Care Team (Late st Contact Info) Description 07/22/2022 9:55 AM EST - 07/22/2022 11:15 AM EST Surgery [place] [address] Ulises Parry MD [facility] [place] [address] TRANSFER OR TRANSPLANT TENDON, PALMAR, W/O FREE TENDON GRAFT, EACH (WRVU 7.89) Social History Tobacco Use Types Packs/Day Years [...] Sign Reading Time Taken Comments Blood Pressure 124/90 07/22/2022 9:52 AM EST Pulse 95 07/22/2022 9:52 AM EST Temperature 36.3 ??C (97.3 ??F) 07/22/2022 9:52 AM ES T Respiratory Rate 16 07/22/2022 9:52 AM EST Oxygen Saturation 99% 07/22/2022 9:52 AM EST Inhaled Oxygen Concentration - - Weight [...] closest emergency room or call the hospital header setup operator at [phone] and ask for physician admissions manager rn covering for your physician. Questions or problems after 5pm or on a weekend: Call the [facility] header setup operator at and ask for the physician admissions manager rn covering for your doctor. At 10:00 am [...] about scheduling, please contact our administrative officesat [phone] For clinical questions, please call our nurses at [phone] Both offices are open Thursday thru Thursday 8a - 5p. With emergencies after hours, call the hospital header setup operator at [phone] and ask for the Plastic Surgery Resident admissions manager rn. DISCHARGE INSTRUCTIONS CONTACT INFORMATION: During office hours (Thursday through Thursday 8 am to 5 pm): Call [phone]. On weekends or after hours: Call [phone] and ask the header setup operator to speak to the Plastic Surgery Resident on-call. FOLLOW-UP APPOINTMENTS: You follow-up appointment has been scheduled. Please call [phone] if you have not received a phone call or letter with your appointment in a timely fashion. Your follow-up has been scheduled: Future Appointments Date Time Provider Department Center 07/30/2022 2:30 PM Ulises Parry MD [facility] [address] 07/30/2022 2:30 PM Shyanne Barr OT [facility] 11/25/2022 10:30 AM Zak Lee MD [facility] documented in this encounter Medications at Time [...] 8.6) performed by Monique Parry MD at [facility] ? ? PRO ADJ TISS XFER HEAD, FAC, HAND <10SQCM Left 10/01/2020 ADJ.TISSUE TRANSFER, REARRANGEMENT, 10SQ.CM OR LESS, HANDS (WRVU 8.6) performed by Monique Parry MD at [facility] ??? PRO HAND TENDON KETTY RECONST, GRAFT Left 10/01/2020 RECONSTRUCT TENDON KETTY, EA TENDON, W/ TENDON OR FASCIAL GRAFT (WRVU 7.31) performed by Ulises Parry MD at [facility] ? ? PRO TENOLYSIS FLEX TENDON, PALM & FINGER, EA Left 12/05/2019 TENOLYSIS, FLEXOR TENDON, PALM AND FINGER EACH (WRVU 9.75) performed by Ulises Parry MD at [facility] ??? PRO TENOLYSIS, FLEX TENDON, PALM/FINGER, EA Left 03/26/2020 TENOLYSIS, FLEXOR TENDON, PALM OR FINGER, EACH (WRVU 5.16) performed by Ulises Parry MD at [facility] ??? PRO TRANSPLANT FOREARM/WRIST TENDON Left 03/26/2020 TENDON TRANSPLANT OR TRANSFER, FOREARM &,OR WRIST, SINGLE; EA (WRVU 8.08) performed by Ulises Parry MD at [facility] History reviewed. No pertinent family history. [...] Operative Note Patient Name: Liset Hager : [id number] MR#: [id number] Case Date: 07/22/2022 Surgeon: Surgeon(s) and Role: [...] Center 07/30/2022 2:30 PM Ulises Parry MD [facility] 07/30/2022 2:30 PM Shyanne Brar OT [facility] 11/25/2022 10:30 AM Zak Lee MD [facility] * Op Note - Ulises Parry MD - 07/22/2022 10:57 AM EST [facility] Operative Note Patient Name: Liset Hager : [id number] MR#: [id number] Case Date: 07/22/2022 Surgeon: Surgeon(s) and Role: [...] Associated Diagnosis Comments Release Muscles Of Hand (06527) 07/22/2022 10:39 AM EST Surgery follow-up Transplant Palm Tendon (76721) 07/22/2022 10:39 AM EST Surgery follow-up POCT [...] POC Glucose 83 65 - 199 mg/dL [facility] Comment: Supplemental ranges: <140 mg/dL before meals <180 mg/dL all other times of the day Blood 07/22/2022 9:34 AM EST 07/22/2022 9:34 AM EST Ulises Parry MD POINT OF CARE TEST ORDERABLES [facility] [place] [address] documented in this encounter Visit Diagnoses Diagnosis Surgery follow-up Follow-up examination, following unspecified surgery Surgery follow-up [...] Given 07/22/2022 9:47 AM EST 1,000 mg lidocaine-EPINEPHrine (1% - 1:100,000) injection ONCE PRN, Starting on Thu07/22/22 at 1058, Until Thu07/22/22 at 1525, Intra-Operative (Intra-Procedure), Routine Given 07/22/2022 11:10 AM EST 16 mLs 19- Surgical Site Given 07/22/2022 10:58 AM EST 20 mLs 1 9- Surgical Site documented in this encounter Active [...] (Intra-Procedure), Routine 1058 (Given - Provid er: Ulises Parry MD)1110 (Given - Provider: Ulises Parry MD) oxyCODONE (Roxicodone) tablet 5 mg 5 mg, Oral, EVERY 4 HOURS PRN, Starting on Thu07/22/22 at 1231, Until Thu07/22/22 at 1525, Pain, Routine documented in this encounter Care Teams Business Segment Manager Relationship Specialty Start Date End Date Aneta Perez PA [address] [place] [address] PCP - General Family Medicine 10/17/19 documented as of this encounter
--- OUTSIDE RECORDS SUMMARY | 2023-12-11 00:10 | XMS_ITS | Encounter Summary ---
[facility] [address] Care Team Providers Care Stratigrapher Name Role Phone Aneta Perez Primary Care Provider [phone] Reason for Visit * Auth/Cert Specialty Diagnoses / Procedures Referred By Roberto t Referred To Contact Diagnoses finger issue Procedures PRO HAND TENDON KETTY RECONST, GRAFT RECONSTRUCT TENDON KETTY, EA TENDON, W/ TENDON OR FASCIAL GRAFT (WRVU 7.31) Referral ID Status Reason Start Date Expiration Date Visits Re quested Visits Authorized [id number] 1 1 Encounter Details Date Type Department Care Team (Latest Contact Info) Description 10/01/2020 7:17 AM EDT - 10/01/2020 12:10 PM EDT Hospital Encounter [place] [address] Ulises Parry MD [facility] [place] [address] Surgery follow-up; Surgery follow-up Discharge Disposition: Home Social History [...] Sign Reading Time Taken Comments Blood Pressure 144/79 10/01/2020 11:45 AM EDT Pulse 88 10/01/2020 11:45 AM EDT Temperature 36.4 ??C (97.5 ??F) 10/01/2020 7:39 AM ED T Respiratory Rate 20 10/01/2020 10:30 AM EDT Oxygen Saturation 95% 10/01/2020 11:45 AM EDT Inhaled Oxygen Concentration - - [...] closest emergency room or call the hospital self propelled dredge operator at [phone] and ask for physician trail construction worker covering for your physician. Questions or problems after 5pm or on a weekend: Call the [facility] self propelled dredge operator at and ask for the physician trail construction worker covering for your doctor. At 0800 am [...] also take motrin/ibuprofen/aleve for pain. You may ptnm437 mg of motrin every 6-8 hours for pain. If your pain is still not controlled, you may take the narcotic pain medication prescribed for you. Do not drive or operate machinery while taking narcotic pain medications. If taking narcotics, we recommend taking an [id number] stool softener to prevent constipation. Call our [...] about scheduling, please contact our administrative officesat [phone] For clinical questions, please call our nurses at [phone] Both offices are open Thursday thru Thursday 8a - 5p. With emergencies after hours, call the hospital self propelled dredge operator at [phone] and ask for the Plastic Surgery Resident trail construction worker. Our office will contact you to schedule [...] patient was questioned regarding travel outside of [place], fever, cough, SOB or other illness [...] again, temperature will be taken, patient and caregiver/services delivery driver will be given a mask to wear the entire time they are in the [facility] building. * Yudelka Toro RN - 09/24/2020 3:57 PM EDT During this call the patient was questioned regarding travel outside of [place], fever, cough, SOB or other illness [...] again, temperature will be taken, patient and caregiver/services delivery driver will be given a mask to [...] 8.6) performed by Monique Parry MD at [facility] ? ? PRO TENOLYSIS FLEX TENDON, PALM & FINGER, EA Left 12/05/2019 TENOLYSIS, FLEXOR TENDON, PALM AND FINGER EACH (WRVU 9.75) performed by Ulises Parry MD at [facility] ??? PRO TENOLYSIS, FLEX TENDON, PALM/FINGER, EA Left 03/26/2020 TENOLYSIS, FLEXOR TENDON, PALM OR FINGER, EACH (WRVU 5.16) performed by Ulises Parry MD at [facility] ??? PRO TRANSPLANT FOREARM/WRIST TENDON Left 03/26/2020 TENDON TRANSPLANT OR TRANSFER, FOREARM &,OR WRIST, SINGLE; EA (WRVU 8.08) performed by Ulises Parry MD at [facility] History reviewed. No pertinent family [...] Gatherings with Friends and Family: ??? Attends Restorationism Services: ??? Active Member of Clubs or [...] Molly Ramos MD Plastic Surgery Resident P# [id number] documented in this encounter Miscellaneous Notes * Brief Op Note - Molly Ramos MD - 10/01/2020 10:19 AM EDT Brief Operative Note Patient Name: Liset Hager : [id number] MR#: [id number] Case Date: 10/01/2020 Surgeon: Surgeon(s) and Role: [...] Parry MD - 10/01/2020 9:07 AM EDT [facility] Operative Note Patient Name: Liset Hager : [id number] MR#: [id number] Case Date: 10/01/2020 Surgeon: Surgeon(s) and Role: [...] Adj Tiss Transfer Head, Fac, Hand <10Sqcm (78233) 10/01/2020 8:44 AM EDT Surgery follow-up Hand Tendon Ketty Reconst, Graft ([id number]) 10/01/2020 8:44 AM EDT Surgery follow-up RECONSTRUCT TENDON KETTY, EA TENDON, W/ TENDON OR FASCIAL GRAFT Routine 10/01/2020 7:36 AM EDT Surgery follow-up documented in this encounter Visit Diagnoses Diagnosis Surgery follow-up- Primary Follow-up examination, following unspecified surgery documented in [...] Given 10/01/2020 7:53 AM EDT 1,000 mg ketorolac (Toradol) (30 mg/mL) injection 30 mg [...] 8:09 AM EDT 1,000 mLs 100 mL/hr documented in this encounter Active and Recently [...] site) documented in this encounter Care Teams Stratigrapher Relationship Specialty Start Date End Date Aneta Perez PA [address] [place] [phone] PCP - General Family Medicine 10/17/19 documented as of this encounter
--- OUTSIDE RECORDS SUMMARY | 2023-12-11 00:11 | XMS_ITS | Encounter Summary ---
Author Organization [facility] Address [facility] [place] [address] Care Team Providers Care Regroover Name Role Phone Aneat Perez Primary Care Provider [phone] Reason for Visit * Auth/Cert Specialty Diagnoses / Procedures Referred By Contdacia t Referred To Contact Diagnoses tendon rupture Procedures PRO TRANSPLANT/GRAFT PALM TENDON TRANSFER OR TRANSPLANT TENDON, PALMAR, W/ FREE TENDON GRAFT, EA (WRVU 9.86) Referral ID Status Reason Start Date Expiration Date Visits Re quested Visits Authorized [id number] 1 1 Encounter Details Date Type Department Care Team (Late st Contact Info) Description 12/05/2019 10:20 AM EDT - 12/05/2019 12:40 PM EDT Surgery [place] [address] Ulises Parry MD [facility] [place] [address] TENOLYSIS, FLEXOR TENDON, PALM AND FINGER EACH (WRVU 9.75) Social History Tobacco Use Types Packs/Day Years Used Date Smoking Tobacco: Every Day Cigarettes Smokeless Tobacco: Never Sex and Gender Information Value Date Recorded Sex Assigned at Not on file Gender Identity Not on file Sexual Orientation Not on file documented as of this encounter Last Filed Vital Signs Vital Sign Reading Time Taken Comments Blood Pressure 141/65 12/05/2019 12:33 PM EDT Pulse 88 12/05/2019 12:33 PM EDT Temperature 36.4 ??C (97.5 ??F) 12/05/2019 12:21 PM E DT Respiratory Rate 17 12/05/2019 12:33 PM EDT Oxygen Saturation 100% 12/05/2019 12:33 PM EDT Inhaled Oxygen Concentration - - Weight 62.6 kg (138 lb) 12/05/2019 8:59 AM EDT Height 157.5 cm (5' 2) 12/05/2019 8:59 AM EDT Body Mass Index 25.24 12/05/2019 8:59 AM EDT documented in this encounter Discharge Instructions * Patient Instructions* Ulises Steel MD - 12/05/2019 12:47 PM EDT DISCHARGE INSTRUCTIONS WOUND CARE: Keep dressing clean dry and intact. You may remove dressings in 24 hours or earlier if it becomes soiled. You must avoid sunlight exposure to your incision(s). Do not use any over the counter ointments on the incisions postoperatively unless instructed by your provider. SHOWERING: OK to shower two days after surgery and get incisions wet. Gently wash your incisions with soap andwater. Pat dry with a clean towel. Do not submerge your surgical site under water until cleared by your provider. MEDICATIONS: You should resume your home medications. You do not need any antibiotics. ACTIVITIES: Minimize contact to affected area(s). No heavy lifting until seen by MD. You should begin range of motion of the finger 24 hours after surgery. No driving or operating heavy machinery when on narcotics. Keep left hand elevated to decrease swelling. DIET: Regular healthy diet. DO???S AND DON???TS FOR THE NEXT 6 WEEKS: Do not drive a motor vehicle for 1-2 weeks or until you can handle the steering wheel without discomfort. Do not drive while taking your narcotic. Do not smoke or be around anyone who smokes for 2 weeks after your surgery this is because smoking delays healing and can lead to infection. Do not lift more than 5 pounds for 6 weeks. Do not participate in strenuous activities such as running or aerobics for 6 weeks. Do resume walking at a gentle pace. Protect your incisions from the sun for 6 months to 1 year. CALL MD IF: - Your incision opens up. - You have signs of infection such as: - temperature over 100.4F or 38C - redness or warmth spreading away from the incision lines after the first 48 hours - yellow pus-like or foul smelling drainage larger than dime size from the incisions - increased swelling or pain During office hours: Thursday - Thursday 8am-5pm call [phone]. On weekends or after hours call [phone] and ask the box printing machine operator to page the plastic surgery resident rn bone marrow transplant. PAIN MEDICATION: You were given a prescription for a narcotic medication immediately following your surgery. Narcotics are prescribed for short-term use to help treat your pain. Surgical pain requiring narcotics willusually be greatly decreased 2-3 days after surgery & should be mild to absent by 10-14 days. We will prescribe a narcotic pain reliever for no longer than 1 week following your surgery. This will be determined by your surgeon. Narcotics do not reduce inflammation and it is inflammation that is usually a major cause of pain after surgery. Narcotics have many side effects such as constipation, lightheadedness, dizziness, sedation, confusion, nausea and vomiting. Driving and the use of alcohol are not recommended while you are using narcotic pain medications. Non-steroidal anti-inflammatories (NSAIDS) such as aspirin, Aleve and ibuprofen (Advil, Motrin) aremedications that reduce pain and inflammation. If you find your pain is not adequately controlled with the prescribed dose of your narcotic pain medication, NSAIDS may be used immediatly after surgery with your narcotic to help alleviate the paincaused by inflammation. As you progress through your post-operative period, your pain should decrease and the use of narcotic medications should be less necessary. To reduce your chance of side effects, it is recommended that you save your narcotic medication for nighttime use and switch to NSAIDS or Acetaminophen (Tylenol) during the day. Alternative means of pain relief such as rest and relaxation, positioning, as well as decreasing stimulants such as coffee, tea, soft drinks, and nicotine may also help to alleviate pain. If you continue to experience significant pain 4-5 days after your procedure, it may be necessary to be re-evaluated by your physician. Prescription Renewals: Narcotic renewals may be requested from 8am-4pm Thursday through Thursday by calling the clinic. Due to patient safety, narcotic renewals will not be honored after hours or on weekends. It is best to make your request 2-3 days before you run out of your medication as it will takeat least 24 hours for physician approval and nurse follow-up. Note that certain prescriptions, suchas Percocet, Oxycodone, Vicodin, & Hydrocodone can not be called in to a pharmacy and must be picked up or mailed to you. If mailed to you, expect 2-5 business days prior to arrival. CONTACT INFORMATION: During office hours (Thursday through Thursday 8 am to 5 pm): Call [phone]. On weekends or after hours: Call [phone] and ask the box printing machine operator to speak to the Plastic Surgery Resident on-call. FOLLOW-UP APPOINTMENTS: You follow-up appointment has been scheduled. You should have an appointment in on 12/15/19 with in Plastic Surgery clinic for a postoperative follow- up. Please call [phone] if you have not received a phone call or letter with your appointment in a timely fashion. You have been requested to be seen in occupational therapy clinic as soon as possible and should receive a call from them regarding the details of the day and time of your appointment. Your follow-up has been scheduled: Future Appointments Date Time Provider Department Center 12/15/2019 1:00 PM Ulises Parry MD [facility] [address] [place] [address] 12/15/2019 2:45 PM Tucker Wiggins, OT [facility] OT [facility] 04/03/2020 11:30 AM Zak Lee MD [facility] documented in this encounter Medications at Time of Discharge Medication Sig Dispensed Refills Start Date End Date rituximab (RITUXAN IV) Inject into the vein. [...] by mouth 2 times daily (with meals). FLUoxetine (PROzac) 10 mg Tablet Take 10 mg by mouth daily. 01/04/2020 oxyCODONE (Roxicodone) 5 mg Tablet Take 1 tablet by mouth every 4 hours as needed for Pain. 15 tablet 12/05/2019 01/04/2020 atorvastatin (Lipitor) 20 mg Tablet Take 40 mg by mouth daily. 09/27/2019 07/22/2022 naproxen (NAPROSYN) 500 mg Tablet Take 1 tablet by mouth 2 times daily (with meals). 60 tablet 12 09/30/2019 02/16/2020 clonazePAM (KLONOPIN) 0.5 mg Tablet Take 1/2 tablet nightly 11/29/2018 06/25/2022 clonazePAM (KLONOPIN) 0.125 mg Tablet, Rapid Dissolve Take 1 tablet by mouth daily. 05/04/2018 06/25/2022 lovastatin (MEVACOR) 10 mg Tablet Take 1 tablet by mouth daily. 04/24/2018 03/26/2020 cloNIDine (CATAPRES) 0.1 mg Tablet Take 1 tablet by mouth daily. 04/13/2018 06/25/2022 cholecalciferol, Vitamin D3, 50 mcg (2,000 unit) Capsule Take 2,000 Units by mouth daily. 07/22/2022 cloNIDine (CATAPRES) 0.2 mg tablet Take 0.2 mg by mouth 3 times daily. 06/25/2022 documented as of this encounter Progress Notes * Hetal Machado RN - 12/05/2019 12:56 PM EDT Discharge instructions and medications reviewed with patient and friend Luzmaria. All questions answered and written copy sent home with patient.Sling placed for elevation. Patient ambulated to car for discharge accompanied by [facility] staff member. * Allie Robb RN - 11/29/2019 8:42 AM EDT During this call the patient was questioned regarding travel, fever, cough, SOB or other illness inthe last 14 days. Patient also questioned regarding any exposure to a COVID positive person, a person awaiting results from testing or a person in quarantine. Patient denies any positive responses to the above questions for themselves or their escort for theday of procedure. Patient informed of procedure to be followed upon arrival to the [facility]. 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 documented in this encounter H&P Notes * Ulises Parry MD - 12/05/2019 10:42 AM EDT Patient Name: Liset Hager Patient Age: 39 y.o. Birthdate: 1980 Admit date: 12/05/2019 Attending Physician: Ulises Parry MD Plastic Surgery H&P HPI: Liset Hager is a 39 y.o. female here for left index FDP to long FDP transfer PMH: RA, Depression PSH: s/p prior L wrist/finger synovectomy. History reviewed. No pertinent surgical history. Social History Socioeconomic History ??? Marital status: Spouse name: Not on file ??? Number of children: Not on file ??? Years of education: Not on file ??? Highest education level: Not on file Occupational History ??? Not on file Social Needs ??? Financial resource strain: Not on file ??? Food insecurity Worry: Not on file Inability: Not on file ??? Transportation needs Medical: Not on file Non-medical: Not on file Tobacco Use ??? Smoking status: Current Every Day Smoker Packs/day: 1.00 Types: Cigarettes ??? Smokeless tobacco: Never Used Substance and Sexual Activity ??? Alcohol use: Not on file ??? Drug use: Not on file ??? Sexual activity: Not on file Lifestyle ??? Physical activity Days per week: Not on file Minutes per session: Not on file ??? Stress: Not on file Relationships ??? Social connections Talks on phone: Not on file Gets together: Not on file Attends yazidi service: Not on file Active member of club or organization: Not on file Attends meetings of clubs or organizations: Not on file Relationship status: Not on file ??? Intimate partner violence Fear of current or ex partner: Not on file Emotionally abused: Not on file Physically abused: Not on file Forced sexual activity: Not on file Other Topics Concern ??? Do You live alone? Not Asked ??? Tobacco in Home Not Asked Social History Narrative ??? Not on file Allergies Allergen Reactions ??? Milk Other (See Comments) Upset stomach ??? Amoxicillin ??? Egg Nausea Only ??? Penicillins Rash ??? Tylenol W Codeine [Acetaminophen-Codeine] Other (See Comments) Don't know where I am, or what I'm doing No current facility-administered medications on file prior to encounter. Current Outpatient Medications on File Prior to Encounter Medication Sig Dispense Refill ??? FLUoxetine (PROzac) 10 mg Tablet Take 10 mg by mouth daily. ??? atorvastatin (Lipitor) 20 mg Tablet ??? naproxen (NAPROSYN) 500 mg Tablet Take 1 tablet by mouth 2 times daily (with meals). 60 tablet 12 ??? clonazePAM (KLONOPIN) 0.5 mg Tablet Take 1/2 tablet nightly ??? amitriptyline (ELAVIL) 100 mg Tablet Take 1 tablet by mouth daily. ??? clonazePAM (KLONOPIN) 0.125 mg Tablet, Rapid Dissolve Take 1 tablet by mouth daily. ??? lovastatin (MEVACOR) 10 mg Tablet Take 1 tablet by mouth daily. ??? cloNIDine (CATAPRES) 0.1 mg Tablet Take 1 tablet by mouth daily. ??? lamoTRIgine (LAMICTAL) 100 mg Tablet Take 1 tablet by mouth 2 times daily. In am ??? lamoTRIgine (LAMICTAL) 25 mg Tablet Take 50 mg by mouth every evening. ??? cholecalciferol, Vitamin D3, (CHOLECALCIFEROL, VITAMIN D3,) 2,000 unit Capsule Take 2,000 Unitsby mouth daily. ??? metFORMIN (GLUCOPHAGE) 500 mg Tablet Take 500 mg by mouth daily. ??? cloNIDine (CATAPRES) 0.2 mg tablet Take 0.2 mg by mouth 3 times daily. ??? rituximab (RITUXAN IV) Inject into the vein. ??? albuterol (PROVENTIL) 2.5 mg /3 mL (0.083 %) Solution for Nebulization prn ??? ONETOUCH ULTRA BLUE TEST STRIP Strip as needed. ??? ONETOUCH ULTRA2 Kit as needed. Examination: BP 123/81 Pulse 81 Temp 36.6 ??C (97.9 ??F) (Temporal) Resp 18 Ht 157.5 cm (5' 2) Wt 62.6 kg (138 lb) LMP 11/19/2019 SpO2 98% BMI 25.24 kg/m?? Constitutional: No acute distress CV:RRR PUL: CTA iza. Abd: soft, non-tender, non-distended L hand: Wrist: Full range of motion (flexion, extension, pronation/supination), no focal tenderness, No dorsal or volar synovitis, DRUJ stable, no pain over scaphoid, negative Hernandez's, negative Mark's, palpable radial and ulnar pulses Hand: Thumb CMC joint with mild subluxation, thumb MP joint with mild effusion and diffuse laxity, no thenar/intrinsic atrophy, volar index scar and extended CT scar without palpable synovitis, mild scar contracture at index MP, no active flexion at PIP flicker of flexion at DIP with PIP blocked, no improvement with wrist extension, small PL palpated, all fingers warm/pink/sensate to LT, no nail abnormality Impression: Liset Hager 39 y.o. female patient with L index tendon rupture due to RA Plan: Exploration and FDP index to FDP long repair/transfer, possible tendon graft Risk, benefits, alternative, complications of the procedure to include anesthesia plan and recoverywere discussed with the patient and informed consent obtained. Ulises Parry MD documented in this encounter Miscellaneous Notes * Op Note - Ulises Parry MD - 12/05/2019 1:21 PM EDT [facility] [place] Patient Name: Liset Hager : [id number] MR#: [id number] Case Date: 12/05/2019 Surgeon: Surgeon(s) and Role: * Ulises Parry MD - Primary * Ulises Steel MD - Resident * Lubna Dotson MD - Resident Preoperative diagnosis: tendon rupture Postoperative diagnosis: tendon rupture Procedure(s) (LRB): TENOLYSIS, FLEXOR TENDON, PALM AND FINGER EACH (WRVU 9.75) (Left) Findings: Left index finger tenolysis Anesthesia: General Estimated Blood Loss: 5 mL Specimens removed during surgery: None Drains: None Surgical Closure: Primary Closure - skin incision is completely closed without any wires, kristi, drains or other devices Disposition: awakened from anesthesia, extubated and taken to the recovery room in a stable condition, having suffered no apparent untoward event. Condition: doing well without problems (Please see the Surgical Encounter Summary for any Implant and Specimen details pertinent to this patient.) HPI/Surgical Indications: Left index finger tendon rupture due to RA. Procedure Description: The patient was identified and marked in the preoperative holding area. We reviewed the surgical plan and potential risks and complications. She expressed understanding and wished to proceed. The patient was brought to the operating room and positioned supine on the operating table with theleft arm out. Anesthetic monitors and SCDs were applied. General anesthesia was induced and a time-out was performed. Pre-operative antibiotics were not administered. A tourniquet was placed on the upper arm and the hand and forearm were prepped and draped in the usual sterile fashion. A miguel a incision was designed from just proximal to the DIP extending into the mid-palm utilizing the prior scar lines. A second incision was designed in a carpal tunnel fashion which followed the patient's previous incision. The left arm was exsanguinated with an eschmar and the tourniquet was turned up to 250 mmhg. A #15 blade was then used at the planned index finger incision and carried down to the subcutaneous tissue. Iris scissors were then used to bluntly and sharply dissect the FDP from dense scar tissue. At this time it was noted that the patient did not have an intact FDS tendon or A1 kat. The A2 kat was noted to be intact but heavily scarred to the FDP tendon and a tenolysis performed. The neurovascular bundles were noted and protected during dissection. Attention was then directed atthe planned carpal tunnel incision. Again a #15 blade was carried down to the subcutaneous tissue. Iris scissors were then used to dissect through the remaining transverse carpal ligament tissue and then to bluntly and sharply dissect more dense scar tissue from the FDP to the index finger. The palmaris tendon and median nerve were both noted to be intact. The median nerve also appeared to be surrounded by scar tissue which was minimally dissected. On dissection it was again noted that FDS to the index was not seen. The FPL, FDS, and FDP to the remaining digits were noted to appear healthy and intact. After dissection was completed at both incisions the FDP was noted to glide freely and near complete flexion of the index finger was obtained. The tourniquit was then let down and hemostasiswas obtained. Total tourniquet time was 39 minutes. 10cc Sensorcaine with epi was then infiltrated into the wound edges. The incisions were then closed with interrupted 4-0 Vicryl suture for the deeplayer and a running 4-0 chromic suture for the skin. A sterile dressing was applied, consisting of xerofrom, web roll, and Dany bandage. All counts were correct at the end of the case. The attending surgeon was present for the entire case.The patient was awoken from anesthesia with no apparent complications and transported to the recovery room in stable condition. Infection Bundle used? No Attestation: Case Date: 12/05/2019 I was present and I participated during the entire procedure (does not need to include opening and closing). Ulises Parry MD 12/06/2019 * Brief Op Note - Ulises Steel MD - 12/05/2019 12:38 PM EDT Brief Operative Note Patient Name: Liset Hager : [id number] MR#: [id number] Case Date: 12/05/2019 Surgeon: Surgeon(s) and Role: * Ulises Parry MD - Primary * Ulises Steel MD - Resident * Lubna Dotson MD - Resident Preoperative diagnosis: tendon rupture Postoperative diagnosis: tendon rupture Procedure(s) (LRB): TENOLYSIS, FLEXOR TENDON, PALM AND FINGER EACH (WRVU 9.75) (Left) Anesthesia: General Findings: Left index finger tenolysis of FDP Complications: None Estimated Blood Loss: 5 mL Specimens removed during surgery: None Fluids: Intraprocedure Crystalloid Total Anesthesia Output Blood Loss 5 mL lactated ringers infusion Volume (mL) 800 mL PRBCs: none (See Anesthesia Record/Report for Other Blood Products) Urine Output: (no urine output recorded) Drains: None Disposition: awakened from anesthesia, extubated and taken to the recovery room in a stable condition, having suffered no apparent untoward event. Condition: doing well without problems (Please see the Surgical Encounter Summary for any Implant and Specimen details pertinent to this patient.) Infection Bundle used? No Post-Op Plan: - Follow up in: 12/15/19 with attending - Wound Check - Suture removal: None - Dressings: remove dressings - Other coordinating appointments needed: OT as soon as possible Future Appointments Date Time Provider Department Center 12/15/2019 1:00 PM Ulises Parry MD [facility] [address] [place] [address] 12/15/2019 2:45 PM Tucker Wiggins OT [facility] 04/03/2020 11:30 AM Zak Lee MD [facility] documented in this encounter Plan of Treatment Scheduled Referrals Name Type Priority Associated Diagnoses Orde r Schedule Referral to Occupational Therapy Outpatient Referral Routine Tendon dysfunction Ordered: 12/05/2019 documented as of this encounter Procedures Procedure Name Priority Date/Time Associated Diagnosis Comments TENOLYSIS, FLEXOR TENDON, PALM AND FINGER EACH Routine 12/05/2019 12:40 PM EDT Tendon rupture of wrist, left, initial encounter Tenolysis Flex Tendon, Palm & Finger, Ea ([id number]) 12/05/2019 11:12 AM EDT Tendon rupture of wrist, left, initial encounter documented in this encounter Visit Diagnoses Diagnosis Tendon rupture of wrist, left, initial encounter Tendon dysfunction Unspecified disorder of synovium, tendon, and bursa Tendon rupture of wrist, left, initial encounter documented in this encounter Administered Medications Inactive Administered Medications - up to 3 most recent administrations Medication Order MAR Action Action Date Dose Rate Site BUpivacaine-EPINEPHr ine 0.25 %-1:200,000 injection ONCE PRN, Starting on Thu12/05/19 at 1222, Until Thu12/05/19 at 1522, Intra-Operative (Intra-Procedure), Routine Given 12/05/2019 12:22 PM EDT 10 mLs 19- Surgical Site lactated ringers infusion 1,000 mL, at 100 mL/hr, Intravenous, CONTINUOUS, Starting on Thu12/05/19 at 0930, Until Thu12/05/19 at 1321, Day of Surgery (Day of Procedure) New Bag 12/05/2019 9:55 AM EDT 1,000 mLs 100 mL/hr documented in this encounter Active and Recently Administered Medications Times are shown in EDT. Continuous Medication Order 12/03/2019 12/04/2019 12/05/2019 lactated ringers infusion (CANCELED) 1,000 mL, at 100 mL/hr, Intravenous, CONTINUOUS, Starting on Thu12/05/19 at 0930, Until Thu12/05/19 at 1321, Day of Surgery (Day of Procedure) 0955 (New Bag - Prov ider: Lubna Brody RN)1222 (Anesthesia Volume Adjustment - Provider: Nelsy Allen CRNA) PRN Medication Order 12/03/2019 12/04/2019 12/05/2019 BUpivacaine-EPINEPHrine 0.25 %-1:200,000 injection (CANCELED) ONCE PRN, Starting on Thu12/05/19 at 1222, Until Thu12/05/19 at 1522, Intra-Operative (Intra-Procedure), Routine 1222 (Given - Provid er: Ulises Parry MD) documented in this encounter Care Teams Regroover Relationship Specialty Start Date End Date Aneta Perez PA [address] [place] [id number] PCP - General Family Medicine 10/17/19 documented as of this encounter
--- OUTSIDE RECORDS SUMMARY | 2023-12-11 00:11 | XMS_ITS | Encounter Summary ---
[place] [address] Care Team Providers Care Medical Radiation Therapist Name Role Phone Aneta Perez Primary Care Provider Encounter Details Date Type Department Care Team (Late st Contact Info) Description 03/28/2020 [place] [phone] Do Esposito Social History Tobacco Use Types Packs/Day Years Used Date Smoking Tobacco: Every Day Cigarettes Smokeless Tobacco: Never Sex and Gender Information Value Date Recorded Sex Assigned at Not on file Gender Identity Not on file Sexual Orientation Not on file documented as of this encounter Miscellaneous Notes * Telephone Encounter - Do Esposito - 03/28/2020 12:10 PM EDT LM for patient that we had to cxl her post op visit with Dr. Parry tomorrow 03/29/2020 due to being in the OR. documented in this encounter Plan of Treatment Not on file documented as of this encounter Visit Diagnoses Not on filedocumented in this encounter Care Teams Medical Radiation Therapist Relationship Specialty Start Date End Date Aneta Perez PA [address] [place] [id number] PCP - General Family Medicine 10/17/19 documented as of this encounter
--- OUTSIDE RECORDS SUMMARY | 2023-12-11 00:11 | XMS_ITS | Encounter Summary ---
[place] [address] Care Team Providers Care Line Dancer Name Role Phone Aneta Perez Primary Care Provider [phone] Reason for Visit * Auth/Cert Specialty Diagnoses / Procedures Referred By Contac t Referred To Contact Diagnoses tendon injury Procedures PRO TENOLYSIS, FLEX TENDON, PALM/FINGER, EA TENOLYSIS, FLEXOR TENDON, PALM OR FINGER, EACH (WRVU 5.16) Referral ID Status Reason Start Date Expiration Date Visits Re quested Visits Authorized [id number] 1 1 Encounter Details Date Type Department Care Team (Late st Contact Info) Description 03/26/2020 12:10 PM EDT - 03/26/2020 1:30 PM EDT Surgery [place] [address] Ulises Parry MD [facility] [place] [address] TENOLYSIS, FLEXOR TENDON, PALM OR FINGER, EACH (WRVU 5.16) Social History Tobacco Use Types Packs/Day Years Used Date Smoking Tobacco: Every Day Cigarettes Smokeless Tobacco: Never Sex and Gender Information Value Date Recorded Sex Assigned at Not on file Gender Identity Not on file Sexual Orientation Not on file documented as of this encounter Last Filed Vital Signs Vital Sign Reading Time Taken Comments Blood Pressure 130/85 03/26/2020 11:17 AM EDT Pulse 85 03/26/2020 11:17 AM EDT Temperature 36.5 ??C (97.7 ??F) 03/26/2020 11:17 AM E DT Respiratory Rate 16 03/26/2020 11:17 AM EDT Oxygen Saturation 98% 03/26/2020 11:17 AM EDT Inhaled Oxygen Concentration - - Weight 62.6 kg (138 lb) 03/26/2020 11:17 AM EDT Height 162.6 cm (5' 4) 03/26/2020 11:17 AM EDT Body Mass Index 23.69 03/26/2020 11:17 AM EDT documented in this encounter Discharge Instructions * Patient Instructions* Molly Ramos MD - 03/26/2020 11:58 AM EDT Hand Discharge Instructions: Keep dressing on and dry at all times until your follow-up appointment. For fingers not included in the splint: OK to move your fingers. Do not use your fingers. Keep hand elevated at all times until your follow-up appointment. We recommend you take tylenol and/or motrin for pain. Be careful if you are taking tylenol and a narcotic medication, as some narcotics contain tylenol. If your pain is still not controlled, you may take the narcotic pain medication prescribed for you. Do not drive or operate machinery while taking narcotic pain medications. If taking narcotics, we recommend taking an fzkk-kep-yuncgjz stool softener to prevent constipation. Call our [...] about scheduling, please contact our administrative officesat [phone] For clinical questions, please call our nurses at [phone] Both offices are open Thursday thru Thursday 8a - 5p. With emergencies after hours, call the hospital screen printing machine operator at [phone] and ask for the Plastic Surgery Resident environmental engineering aide. FOLLOW UP: Future Appointments and Orders Future Appointments and Orders Future Appointments Provider Department Dept Phone 04/03/2020 11:30 AM Zak Lee [place] [facility] [place] at: [facility] Area [phone] 04/03/2020 1:00 PM Ulises Parry MD [place]astic [place] [facility] [place]rive at: [facility] Area [phone] 04/03/2020 1:30 PM Tucker Wiggins OT Occupational Therapy at [facility] Arrive at: [facility] Wheel [facility] 1 [facility] [phone] documented in this encounter Medications at Time [...] by mouth 2 times daily (with meals). omeprazole (PriLOSEC) 20 mg Capsule, Delayed Release(E.C.)Indicat ions:gastroesophagea l reflux disease Take 20 mg by mouth daily. Indications: gastroesophageal reflux disease 07/22/2022 oxyCODONE (Roxicodone) 5 mg Tablet Take 1 tablet by mouth every 4 hours as needed. 10 tablet 03/26/2020 07/25/2020 FLUoxetine (PROzac) 20 mg Tablet Take 20 mg by mouth daily. 07/25/2020 atorvastatin (Lipitor) 20 mg Tablet Take 40 mg by mouth daily. 09/27/2019 07/22/2022 clonazePAM (KLONOPIN) 0.5 mg Tablet Take 1/2 tablet nightly 11/29/201806/02 clonazePAM (KLONOPIN) 0.125 mg Tablet, Rapid Dissolve [...] as of this encounter Progress Notes * Angélica Painter RN - 03/26/2020 2:46 PM EDT Pt states she is having pain. She has been taking Tylenol, and only one Oxycodone 5 mg in the middle of the night. Pt states she has been elevating and icing her hand. The wrap feels tight, but pt states she has good circulation and no discoloration. Pt encouraged to have something to eat and take a dose of Oxycodone, then take her Tylenol 4 hrs later when her dose is due. Pt encouraged to call back if pain is not manageable. * Chao Keller RN - 03/26/2020 2:29 PM EDT Discharge instructions and medications reviewed with patient and . All questions answered and written copy sent home with patient. Patient ambulated to car for discharge accompanied by [facility] staff member. * Allie Robb RN - 03/23/2020 8:21 AM EDT During this call the patient was questioned regarding travel outside of [facility], fever, cough, SOB or other illness in the last 14 days. Patient also questioned regarding any exposure to aCOVID positive person, a person awaiting results from testing or a person in quarantine.Patient denies any positive responses to the above questions for themselves or their escort for the day of procedure. Patient informed of procedure to be followed upon arrival to the [facility]. That being, COVID questions will be asked again, temperature will be taken, patient and caregiver/highway truck driver will be given a mask to wear the entire time they are in the [facility] building. documented in this encounter H&P Notes * Molly Ramos MD - 03/26/2020 11:59 AM EDT Plastic Surgery Preoperative H&P: Patient Name: Liset Hager Patient : [id number] Today's Date: 03/26/2020 Liset Hager is a 39 y.o. female here for left index finger tenolysis. No changes since last seen. History reviewed. No pertinent past medical history. Past Surgical History: Procedure Laterality Date ? ? PRO TENOLYSIS FLEX TENDON, PALM & FINGER, EA Left 12/05/2019 TENOLYSIS, FLEXOR TENDON, PALM AND FINGER EACH (WRVU 9.75) performed by Ulises Parry MD at [facility] History reviewed. No pertinent family history. [...] file Gets together: Not on file Attends jewish service: Not on file Active member of [...] regular rhythm A/P: Liset Hager is a 39 y.o. female here for left index finger tenolysis. - Proceed to OR. The risks, benefits and indications were reviewed with the patient and there remains an indication for surgery. Consent signed. Molly Ramos MD Plastic Surgery Resident P# [id number] documented in this encounter Miscellaneous Notes * Op Note - Ulises Parry MD - 03/26/2020 1:43 PM EDT [facility] [place] Note Patient Name: Liset Hager : [id number] MR#: [id number] Case Date: 03/26/2020 Surgeon: Surgeon(s) and Role: * Ulises Parry MD - Primary * Molly Ramos MD - Resident Preoperative diagnosis: tendon injury Postoperative diagnosis: tendon injury Procedure(s) (LRB): TENOLYSIS, FLEXOR TENDON, PALM OR FINGER, EACH (WRVU 5.16) (Left) TENDON TRANSPLANT OR TRANSFER, FOREARM &,OR WRIST, SINGLE; EA (WRVU 8.08) (Left) ADJ.TISSUE TRANSFER, REARRANGEMENT, 10SQ.CM OR LESS, HANDS (WRVU 8.6) (Left) Findings: FDP intact distally, but unable to flex intraoperatively. Therefore, FDP tendon transfer from middle to index finger performed at wrist with improved flexion noted. Index lumbricals released. Anesthesia: General Estimated Blood Loss: 5cc Specimens removed during surgery: None Drains: none Surgical Closure: Primary Closure - skin incision is completely closed without any wires, kristi, drains or other devices Disposition: aroused from sedation, and taken to the recovery room in a stable condition Condition: doing well without problems (Please see the Surgical Encounter Summary for any Implant and Specimen details pertinent to this patient.) HPI/Surgical Indications: Liset Hager is a 39 y.o. F with RA and inability to flex left indexfinger. She previously underwent tenolysis with minimal improvement and presented today for awake tenolysis and exploration. The risks, benefits, and indications were reviewed and informed consent was obtained. Procedure Description: The patient was brought to the operating room after informed consent was obtained. She was placed supine on the OR table and anesthesia was induced. She was prepped and draped in the usual sterile fashion and a timeout was held. An incision was made through her prior index finger scar. Dissection proceeded until the FDP tendon was identified proximally to the A1 kat and distally along the length of the index finger. The tendon appeared intact, but was densely adhesed. Tenolysis was performed and the lumbricals were released. The A2 and A4 pulleys were preserved. Traction on the FPD at the A1 kat resulted in flexion of the PIP and DIP with good tendon glide. The p brittani was aroused from sedation and was unable to flex her index finger, no tension on the FDP to the index was obsured despite good flexion of other digits. At this point, we made an incision proximally at the wrist. The index FDPs were identified and did appear to glide to all digits but the index, suggesting discontinuity proximally. At this point we proceeded with a gqaa-di-alnx middle finger to index finger FDP transfer. Using 3-0 fiberwire, the tendons were secured together with [id number] sutures so that the index FDP was flexed tighter than the middle finger FDP. A z-plasty was then performed on the palm at the proximal end of her index finger incision to allow for decreased tension. She was now noted to have improved active flexion of the index finger. Hemostasis was ensured and the wounds were irrigated and closed with 4-0 Vicryl and 4-0 Prolene. Xeroform and a soft dressing were applied. The patient tolerated the procedure well. Instrument and needle counts were correct at the end of the procedure. The patient was awakened from anesthesia and taken to recovery in stable condition. ?? Dr. Parry was present throughout. Infection Bundle used? N/A Attestation: Case Date: 03/26/2020 I was present and I participated during the entire procedure (does not need to include opening and closing). Ulises Parry MD 03/27/2020 * Brief Op Note - Molly Ramos MD - 03/26/2020 1:41 PM EDT Brief Operative Note Patient Name: Liset Hager : [id number] MR#: [id number] Case Date: 03/26/2020 Surgeon: Surgeon(s) and Role: * Ulises Parry MD - Primary * Molly Ramos MD - Resident Preoperative diagnosis: tendon injury Postoperative diagnosis: tendon injury Procedure(s) (LRB): TENOLYSIS, FLEXOR TENDON, PALM OR FINGER, EACH (WRVU 5.16) (Left) TENDON TRANSPLANT OR TRANSFER, FOREARM &,OR WRIST, SINGLE; EA (WRVU 8.08) (Left) ADJ.TISSUE TRANSFER, REARRANGEMENT, 10SQ.CM OR LESS, HANDS (WRVU 8.6) (Left) Anesthesia: General Findings: FDP intact distally, but unable to flex intraoperatively. Therefore, FDP tendon transfer from middle to index finger performed at wrist with improved flexion noted. Complications: none Estimated Blood Loss: 5cc Specimens removed during surgery: None Fluids: Intraprocedure Crystalloid Total Intake lactated ringers infusion 500.00 mL Total Intake 500 mL PRBCs: none (See Anesthesia Record/Report for Other Blood Products) Urine Output: (no urine output recorded) Drains: none Disposition: aroused from sedation, and taken to the recovery room in a stable condition Condition: doing well without problems (Please see the Surgical Encounter Summary for any Implant and Specimen details pertinent to this patient.) Infection Bundle used? N/A Post-Op Plan: - Follow up in: [address] Parry and OT for ROM - Suture removal 10-14 days - dressing removal in 2 days in clinic Future Appointments Date Time Provider Department Center 04/03/2020 11:30 AM Zak Lee MD [facility] 04/03/2020 1:30 PM Tucker Wiggins, OT [facility] OT [facility] documented in this encounter Plan of Treatment Not on file documented as of this encounter Procedures Procedure Name Priority Date/Time Associated Diagnosis Comments TENDON TRANSPLANT OR TRANSFER, FOREARM &,OR WRIST, SINGLE; EA Routine 03/26/2020 1:41 PM EDT Tendon rupture of wrist, left, initial encounter ADJ.TISSUE TRANSFER, REARRANGEMENT, 10SQ.CM OR LESS, HANDS Routine 03/26/2020 1:41 PM EDT Tendon rupture of wrist, left, initial encounter Adj Tiss Transfer Head, Fac, Hand <10Sqcm ([id number]) 03/26/2020 12:13 PM EDT Tendon rupture of wrist, left, initial encounter Transplant Forearm/Wrist Tendon ([id number]) 03/26/2020 12:13 PM EDT Tendon rupture of wrist, left, initial encounter Tenolysis, Flex Tendon, Palm/Finger, Ea ([id number]) 03/26/2020 12:13 PM EDT Tendon rupture of wrist, left, initial encounter TENOLYSIS, FLEXOR TENDON, PALM OR FINGER, EACH Routine 03/26/2020 11:12 AM EDT Tendon rupture of wrist, left, initial encounter documented in this encounter Visit Diagnoses Diagnosis Tendon rupture of wrist, left, initial encounter Tendon rupture of wrist, left, initial encounter documented in this encounter Administered Medications Inactive Administered Medications - up to 3 most recent administrations Medication Order MAR Action Action Date Dose Rate Site fentaNYL 50 mcg/mL multi-dose injection 25-50 mcg, Intravenous, EVERY 5 MIN PRN, Starting on Thu03/26/20 at 1335, Until Thu03/26/20 at 1647, Pain, Give 25 mcg every 5 minutes PRN for mild to moderate pain (1-5) Give 50 mcg every 5 minutes PRN for moderate to severe pain (6-10). Hold for respiratory rate less than 10 per minute. Maximum dose 250 mcg over one hour. If ordered with hydromorphone or morphine, give hydromorphone or morphine first and use fentanyl for breakthrough pain., Routine lactated ringers infusion 1,000 mL, at 100 mL/hr, Intravenous, CONTINUOUS, Starting on Thu03/26/20 at 1130, Until Thu03/26/20 at 1431, Day of Surgery (Day of Procedure) New Bag 03/26/2020 12:01 PM EDT New Bag 03/26/2020 11:45 AM EDT 1,000 mLs 100 mL/hr lidocaine-EPINEPHrine 1 %-1:100,000 injection ONCE PRN, Starting on Thu03/26/20 at 1222, Until Thu03/26/20 at 1647, Intra-Operative (Intra-Procedure), Routine Given 03/26/2020 1:27 PM EDT 22 mLs 19- Surgical Site Given 03/26/2020 12:22 PM EDT 9 mLs 1 9- Surgical Site documented in this encounter Active and Recently Administered Medications Times are shown in EDT. Continuous Medication Order 03/24/2020 03/25/2020 03/26/2020 lactated ringers infusion (CANCELED) 1,000 mL, at 100 mL/hr, Intravenous, CONTINUOUS, Starting on Thu03/26/20 at 1130, Until Thu03/26/20 at 1431, Day of Surgery (Day of Procedure) 1145 (New Bag - Prov ider: Monae Hollis RN)1201 (New Bag - Provider: Danica Bell CRNA)1224 (Anesthesia Volume Adjustment - Provider: Danica Bell CRNA)1334 (Anesthesia Volume Adjustment - Provider: Danica Bell CRNA) PRN Medication Order 03/24/2020 03/25/2020 03/26/2020 fentaNYL 50 mcg/mL multi-dose injection 25-50 mcg, Intravenous, EVERY 5 MIN PRN, Starting on Thu03/26/20 at 1335, Until Thu03/26/20 at 1647, Pain, Give 25 mcg every 5 minutes PRN for mild to moderate pain (1-5) Give 50 mcg every 5 minutes PRN for moderate to severe pain (6-10). Hold for respiratory rate less than 10 per minute. Maximum dose 250 mcg over one hour. If ordered with hydromorphone or morphine, give hydromorphone or morphine first and use fentanyl for breakthrough pain., Routine lidocaine-EPINEPHrine 1 %-1:100,000 injection (CANCELED) ONCE PRN, Starting on Thu03/26/20 at 1222, Until Thu03/26/20 at 1647, Intra-Operative (Intra-Procedure), Routine 1222 (Given - Provid er: Ulises Parry MD)1327 (Given - Provider: Ulises Parry MD) documented in this encounter Care Teams Line Dancer Relationship Specialty Start Date End Date Aneta Perez PA [address] [place] [id number] PCP - General Family Medicine 10/17/19 documented as of this encounter
--- OUTSIDE RECORDS SUMMARY | 2023-12-11 00:11 | XMS_ITS | Encounter Summary ---
Author Organization [facility] Address [facility] [place] [address] Care Team Providers Care Residential Director Name Role Phone Aneta Perez Primary Care Provider [phone] Reason for Visit * Occupational Therapy (Routine) - Closed Specialty Diagnoses / Procedures Referred By Roberto palomares Referred To Contact Occupational Therapy Diagnoses Trigger middle finger of left hand Ulises Parry MD [facility] [place] [address] [facility] [address] [place] [address] Referral ID Status Reason Start Date Expiration Date V isits Requested Visits Authorized [id number] Closed Evaluate and Treat 07/25/2020 07/25/2021 30 30 Encounter Details Date Type Department Care Team (Late st Contact Info) Description 07/25/2020 8:30 AM EST Office Visit Occupational Therapy at [facility] [address] [place] [address] Tucker Wiggins OT [facility] PHYSICAL MEDICINE & [place] [address] Tendon dysfunction Social History Tobacco Use Types Packs/Day Years Used Date Smoking Tobacco: Every Day Cigarettes Smokeless Tobacco: Never Sex and Gender Information Value Date Recorded Sex Assigned at Not on file Gender Identity Not on file Sexual Orientation Not on file documented as of this encounter Miscellaneous Notes * Initial Evaluation - Tucker Wiggins OT - 07/25/2020 8:30 AM EST OCCUPATIONAL THERAPY ORTHOTIC EVALUATION Certification Period: 07/25/20-10/21/20 Referral Source: Dr. Ulises Christian MD Follow-up: Anticipated to be seen in August with a kat reconstruction surgery Total Treatment time: 25 Minutes Timed Code Treatment Time: 25 minutes OCCUPATIONAL PROFILE: Liset Hager is a 39 y.o. year old Right hand dominant female [...] with in a resting MP flexion position. referred to OT today to attain a [...] the ones not supported in the orthosis. Date of onset of symptoms: Ongoing gradually getting worse for years Date of surgery: 03/26/20 most recent tendon transfer surgery Pertinent History and/or Co-morbidities: 1. Tendon dysfunction Occupation: Currently not working and has applied [...] the Visual Analog Pain Scale) At Rest: 0/10 With Activity: 0/10 Treatment Today: Orthosis - Xtdgz-Gnck-Xrozhs Orthotic, Rigid, WO Jts, Custom Fit & Adj ([id number]) Educated patient in etiology and biomechanics as related to patient's symptoms Fabricated forearm based resting hand splint orthosis with MP's in as much extension as she can tolerate Instructed in orthosis wear and care to wear for night time and occasionally during the day CLINICAL DECISION MAKING: Liset Hager has a [...] with demonstration intherapy. Goal Status: Meets PLAN: one time visit for orthotic fabrication. Zulema Mcmillan will call this clinic if she needs an orthosis adjustment. She plans to return to hand surgeon in August to consider another surgery for the left hand for kat reconstruction. (X) Liset Hager participated in the evaluation, collaborated on treatment goals, and agrees to the treatment plan. documented in this encounter Plan of Treatment Scheduled Referrals Name Type Priority Associated Diagnoses Order Schedule Referral to Occupational Therapy Outpatient Referral Routine Trigger middle finger of left hand Ordered: 07/25/2020 documented as of this encounter Visit Diagnoses Diagnosis Tendon dysfunction Unspecified disorder of synovium, tendon, and bursa documented in this encounter Care Teams Residential Director Relationship Specialty Start Date End Date Aneta Perez PA [address] [place] [id number] PCP - General Family Medicine 10/17/19 documented as of this encounter
--- OUTSIDE RECORDS SUMMARY | 2023-12-11 00:11 | XMS_ITS | Encounter Summary ---
[place] [address] Care Team Providers Care Oral Surgery Physician Name Role Phone Aneta Perez Primary Care Provider [phone] Reason for Visit * Auth/Cert Specialty Diagnoses / Procedures Referred By Contdacia t Referred To Contact Diagnoses tendon injury Procedures PRO TENOLYSIS, FLEX TENDON, PALM/FINGER, EA TENOLYSIS, FLEXOR TENDON, PALM OR FINGER, EACH (WRVU 5.16) Referral ID Status Reason Start Date Expiration Date Visits Re quested Visits Authorized [id number] 1 1 Encounter Details Date Type Department Care Team (Late st Contact Info) Description 03/26/2020 12:13 PM EDT Anesthesia Event Outpatient [place] [address] Rianna Ramírez DO [facility] [place] [address] John López MD [facility] [place] [address] Anesthesia Record Procedure Summary Procedure Name Responsible Anesthesiologist Anesthesia Start Time Anesthesia Stop Time TENOLYSIS, FLEXOR TENDON, PALM OR FINGER, EACH (WRVU 5.16) (Left: Hand) Rianna Ramírez DO 03/26/20 1213 03/26/20 1345 Events Date Time Event Comment 03/26/2020 1213 AN Verify 1213 Start 1213 An Start Data 1213 Anesthesia Ready 1226 Break/Relief In I assumed ca re for Break Relief before which we: 1. Identified the patient 2. Identified the responsible provider(s) 3. Reviewed the pertinent medical history 4. Discussed the surgical plan and course 5. Reviewed intra-op anesthesia management and issues during anesthesia 6. Set expectations for the relief (and/or post-procedure) period 7. Allowed opportunity for questions and acknowledgement of understanding T DO Darrell 1246 Break/Relief Out 1259 1340 an stop data 1345 Recovery or ICU Handoff Rosa ent care was transferred to the destination unit staff after review of the patient's medical history, current anesthetic/surgical status and plan, according to the Provider Handoff Checklist. 1345 Stop Meds Name Total Midazolam 4 mg fentaNYL 100 mcg IV Lidocaine 60 mg Propofol 350 mg Propofol INF 303.61 mg ketorolac (Toradol) (30 mg/mL) injection 30 mg lactated ringers infusion 800 mL * Agents Name O2 Air N2O * Blood No blood administrations on file. Lines, Drains, and Airways Type Details Placement Removal Supraglottic Mask Ventilation: No t Attempted (0); LMA Type: Unique; LMA Size: 3; Inserted by: ; Removal Date: 10/01/20; Removal Time: 0808 12/05/19 1123 by Nelsy Allen, BABY STROLLER RENTAL CLERK 10/01/20 0808 by Kim Rascon RN Incision 12/05/19; 1128; seco nd finger; 01/27/22 (LDA cleanup utility RA#[id number]); 1715 (LDA cleanup utility RA#[id number]) 12/05/19 1128 by Verna Oliver RN 01/27/22 1715 by Heidy Kearns Incision 12/05/19; 1140; wris t; 01/27/22 (LDA cleanup utility RA#[id number]); 1715 (LDA cleanup utility RA#[id number]) 12/05/19 1140 by Verna Oliver RN 01/27/22 1715 by Heidy Kearns (RETIRED) Peripheral IV Line - Single Lumen 03/26/20; 1144; median vein (underside of arm), right; cdvy-iwj-egyavh catheter system; 22 gauge; BB; distraction, intradermal injection, tolerated well; 0; 03/26/20; 1430 03/26/20 1144 by Monae Hollis RN 03/26/20 1430 by Chao Keller RN Incision 03/26/20; 1221; hand ; 01/27/22 (LDA cleanup utility RA#[id number]); 1715 (LDA cleanup utility RA#[id number]) 03/26/20 1221 by Johnathon Watt RN 01/27/22 1715 by Heidy Kearns documented [...] Postprocedure Evaluation - Rianna Ramírez DO - 03/27/2020 4:44 PM EDT Department of Anesthesiology Post-procedure Note Patient: Liset Hager Procedure Summary Date: 03/26/20 Room / Location: [facility] [place] [address] [place] [address] Anesthesia Start: 1213 Anesthesia Stop: 1345 Procedures: TENOLYSIS, FLEXOR TENDON, PALM OR FINGER, EACH (WRVU 5.16) (Left Hand) TENDON TRANSPLANT OR TRANSFER, FOREARM &,OR WRIST, SINGLE; EA (WRVU 8.08) (Left Hand) ADJ.TISSUE TRANSFER, REARRANGEMENT, 10SQ.CM OR LESS, HANDS (WRVU 8.6) (Left Hand) Diagnosis: Tendon rupture of wrist, left, initial encounter (tendon injury) Surgeon: Ulises Parry MD Responsible Provider: Rianna Ramírez DO Anesthesia Type: general ASA Status: 2 All Anesthesia Providers: Anesthesiologist: Rianna Ramírez DO BABY STROLLER RENTAL CLERK: Danica Bell CRNA Vitals Value Taken Time BP 136/78 03/26/20 1415 Temp 36.4 ??C (97.5 ??F) 03/26/20 1344 Pulse 101 03/26/20 1420 Resp 16 03/26/20 1415 SpO2 99 % 03/26/20 1419 Pain Level 0 03/26/20 1415 Vitals shown include unvalidated device data. Patient Location: PACU/[facility] Level of Consciousness: Awake and Alert [...] Ramírez DO * Anesthesia Preprocedure Evaluation - Rianna Ramírez DO - 03/26/2020 10:41 AM EDT Pre-Anesthesia Evaluation for: Liset Hager a 39 y.o. female. Procedure(s): TRANSFER OR TRANSPLANT TENDON, PALMAR, W/ FREE TENDON GRAFT, EA (WRVU 9.86) Patient Active Problem List Diagnosis ??? Tendon rupture of wrist Added automatically from request for surgery [id number] ??? Tendon dysfunction ??? Rheumatoid arthritis involving multiple sites with positive rheumatoid factor ??? High risk medication use ??? Degenerative joint disease involving multiple joints ??? Cigarette smoker ??? Graves disease ??? Depression ??? Anxiety No past medical history on file. Past Surgical History: Procedure Laterality Date ? ? PRO TENOLYSIS FLEX TENDON, PALM & FINGER, EA Left 12/05/2019 TENOLYSIS, FLEXOR TENDON, PALM AND FINGER EACH (WRVU 9.75) performed by Ulises Parry MD at [facility] Social History Tobacco Use ??? Smoking status: Current Every Day Smoker Packs/day: 1.00 Types: Cigarettes ??? Smokeless tobacco: Never Used Substance Use Topics ??? Alcohol use: Not on file Social History Substance and Sexual Activity Drug Use Not on file Allergies Allergen Reactions ??? Milk Other (See Comments) Upset stomach ??? Amoxicillin ??? Egg Nausea Only ??? Naproxen ??? Penicillins Rash ??? Tylenol W Codeine [Acetaminophen-Codeine] Other (See Comments) Don't know where I am, or what I'm doing Medications: MAR and/or home medications have been reviewed. Physical Exam: No data found. There is no height or weight on file to calculate BMI. Airway Assessment: Mallampati: II TM distance: >3 FB Neck ROM: full Cardiovascular Assessment: Rhythm: regular Pulmonary Assessment: breath sounds clear to auscultation Dental Assessment: - normal exam Misc Assessment: Patient is wearing No contact(s). IV access: Peripheral line Anesthesia Plan: ASA 2 MAC, with a(n) intravenous induction 39 Y/o female for Tenolysis, flexor tendon L hand No hx of difficulty w anesthesia Hx sig for Depression/Anxiety, RA, Tob use, Graves Dz Denies CP/SOB/Orthopnea/Active DAMON ss/Acute illness or direct COVID19 exposure Appears and feels well today Plan MAC with movement of her finger. GA if needed. The patient was informed of the risks, [...] Consent: Anesthetic plan and risks discussed with patient and spouse. Plan discussed with BABY STROLLER RENTAL CLERK. PAT Clinic Note documented in this encounter Plan of Treatment Not on file documented as of this encounter Visit Diagnoses Not on filedocumented in this encounter Administered Medications Inactive Administered Medications - up to 3 most recent administrations Medication Order MAR Action Action Date Dose Rate Site fentaNYL 50 mcg/mL multi-dose injection PRN, Starting on Thu03/26/20 at 1216, Until Thu03/26/20 at 1345, Anesthesia Intra-op, Routine Given 03/26/2020 12:18 PM EDT 50 mcg Given 03/26/2020 12:16 PM EDT 50 mcg ketorolac (Toradol) (30 mg/mL) injection PRN, Starting on Thu03/26/20 at 1338, Until Thu03/26/20 at 1345, Anesthesia Intra-op, Routine Given 03/26/2020 1:38 PM EDT 30 mg lactated ringers infusion 1,000 mL, at 100 mL/hr, Intravenous, CONTINUOUS, Starting on Thu03/26/20 at 1130, Until Thu03/26/20 at 1431, Day of Surgery (Day of Procedure) New Bag 03/26/2020 12:01 PM EDT New Bag 03/26/2020 11:45 AM EDT 1,000 mLs 100 mL/hr lidocaine (PF) (XYLOCAINE) 100 mg/5 mL (2 %) injection PRN, Starting on Thu03/26/20 at 1221, Until Thu03/26/20 at 1345, Anesthesia Intra-op, Routine Given 03/26/2020 12:21 PM EDT 60 mg midazolam (PF) (VERSED) multi-dose injection PRN, Starting on Thu03/26/20 at 1211, Until Thu03/26/20 at 1345, Anesthesia Intra-op, Routine Given 03/26/2020 12:14 PM EDT 2 mg Given 03/26/2020 12:11 PM EDT 2 mg propofoL (Diprivan) 10 mg/mL bolus injection (Anesthesia) PRN, Starting on Thu03/26/20 at 1222, Until Thu03/26/20 at 1345, Anesthesia Intra-op Given 03/26/2020 12:55 PM EDT 5 0 mg Given 03/26/2020 12:53 PM EDT 50 mg Given 03/26/2020 12:45 PM EDT 50 mg propofoL (Diprivan) infusion CONTINUOUS PRN, Starting on Thu03/26/20 at 1253, Until Thu03/26/20 at 1345, Anesthesia Intra-op, Routine Rate/Dose Change 03/26/2020 1:00 PM EDT 100 mcg/kg/min 37.6 mL/hr New Bag 03/26/2020 12:53 PM EDT 50 mcg/kg/min 18.8 mL/h r documented in this encounter Care Teams Oral Surgery Physician Relationship Specialty Start Date End Date Aneta Perez PA [address] [place] [id number] PCP - General Family Medicine 10/17/19 documented as of this encounter
--- OUTSIDE RECORDS SUMMARY | 2023-12-11 00:11 | XMS_ITS | Encounter Summary ---
[place] [address] Care Team Providers Care Rn Employee Health Name Role Phone Aneta Perez Primary Care Provider [phone] Reason for Visit * Reason Onset Date Comments Other 04/18/2020 Encounter Details Date Type Department Care Team ([facility] st Contact Info) Description 04/18/2020 [place] [phone] Kvng Rust RN Other Social History Tobacco Use Types Packs/Day Years Used Date Smoking Tobacco: Every Day Cigarettes Smokeless Tobacco: Never Sex and Gender Information Value Date Recorded Sex Assigned at Not on file Gender Identity Not on file Sexual Orientation Not on file documented as of this encounter Miscellaneous Notes * Telephone Encounter - Kvng Rust RN - 04/18/2020 10:45 AM EST Faxed Caitlyn @ [facility] the request for a height of Liset Mcmillan. documented in this encounter Plan of Treatment Not on file documented as of this encounter Visit Diagnoses Not on filedocumented in this encounter Care Teams Rn Employee Health Relationship Specialty Start Date End Date Aneta Perez PA [address] [place] [address] PCP - General Family Medicine 10/17/19 documented as of this encounter
--- OUTSIDE RECORDS SUMMARY | 2023-12-11 00:11 | XMS_ITS | Encounter Summary ---
[place] [address] Care Team Providers Care Farebox Repairer Name Role Phone Aneta Perez Primary Care Provider [phone] Encounter Details Date Type Department Care Team (Late st Contact Info) Description 04/12/2020 [place] [id number] Lidia Vale Social History Tobacco Use Types Packs/Day Years Used Date Smoking Tobacco: Every Day Cigarettes Smokeless Tobacco: Never Sex and Gender Information Value Date Recorded Sex Assigned at Not on file Gender Identity Not on file Sexual Orientation Not on file documented as of this encounter Miscellaneous Notes * Telephone Encounter - Lidia Vale - 04/12/2020 3:26 PM EST Called pt to determine what facility she would like to have her infusion at. Cell number has no vm set up. Tried work number, was transferred a few times then call disc. Unable to reach pt at this time, will call again documented in this encounter Plan of Treatment Not on file documented as of this encounter Visit Diagnoses Not on filedocumented in this encounter Care Teams Farebox Repairer Relationship Specialty Start Date End Date Aneta Perez PA [address] [place] [address] PCP - General Family Medicine 10/17/19 documented as of this encounter
--- OUTSIDE RECORDS SUMMARY | 2023-12-11 00:11 | XMS_ITS | Encounter Summary ---
Author Organization [facility] [place] [address] Care Team Providers Care Fast Brim Pouncer Name Role Phone Aneta Perez Primary Care Provider [phone] Reason for Referral * Occupational Therapy (JENS) - Specialty Diagnoses / Procedures Referred By Roberto palomares Referred To Contact Occupational Therapy Diagnoses Tendon dysfunction Ulises Steel MD [facility] [place] [address] Tucker Wiggins, OT [facility] PHYSICAL MEDICINE & [place] [address] Referral ID Status Reason Start Date Expiration Date V isits Requested Visits Authorized [id number] Evaluate and Treat 12/05/2019 12/04/2020 12 12 Reason for Visit * Auth/Cert Specialty Diagnoses / Procedures Referred By Robreto palomares Referred To Contact Diagnoses tendon rupture Procedures PRO TRANSPLANT/GRAFT PALM TENDON TRANSFER OR TRANSPLANT TENDON, PALMAR, W/ FREE TENDON GRAFT, EA (WRVU 9.86) Referral ID Status Reason Start Date Expiration Date Visits Re quested Visits Authorized [id number] 1 1 Encounter Details Date Type Department Care Team (Latest Contact Info) Description 12/05/2019 8:39 AM EDT - 12/05/2019 1:21 PM EDT Hospital Encounter [place]patient [place] [address] Ulises Parry MD [facility] [place] [address] Tendon rupture of wrist, left, initial encounter; Tendon dysfunction Discharge Disposition: Home Social History Tobacco Use Types Packs/Day Years Used Date Smoking Tobacco: Every Day Cigarettes Smokeless Tobacco: Never Sex and Gender Information Value Date Recorded Sex Assigned at Not on file Gender Identity Not on file Sexual Orientation Not on file documented as of this encounter Last Filed Vital Signs Vital Sign Reading Time Taken Comments Blood Pressure 151/70 12/05/2019 1:00 PM EDT Pulse 85 12/05/2019 1:00 PM EDT Temperature 36.4 ??C (97.5 ??F) 12/05/2019 12:21 PM E DT Respiratory Rate 17 12/05/2019 1:00 PM EDT Oxygen Saturation 97% 12/05/2019 1:00 PM EDT Inhaled Oxygen Concentration - - [...] office hours: Thursday - Thursday 8am-5pm call [phone]. On weekends or after hours call [phone] and ask the dredge pump operator to page the plastic surgery resident client application support specialist. PAIN MEDICATION: You were given a prescription [...] Thursday 8 am to 5 pm): Call [phone]. On weekends or after hours: Call [phone] and ask the dredge pump operator to speak to the Plastic Surgery Resident on-call. FOLLOW-UP APPOINTMENTS: You follow-up appointment has been scheduled. You should have an appointment in on 12/15/19 with in Plastic Surgery clinic for a postoperative follow- up. Please call [phone] if you have not received a phone [...] Center 12/15/2019 1:[address] [facility] [address] [place] [address] 12/15/2019 2:45 PM Tucker Wiggins, MARIA L [facility] 04/03/2020 11:30 AM Zak Lee MD [facility] documented in this encounter Medications at Time [...] again, temperature will be taken, patient and caregiver/pile driver engineer will be given a mask to wear [...] file Gets together: Not on file Attends confucianism service: Not on file Active member of [...] Parry MD - 12/05/2019 1:[address] [facility] Operative Note Patient Name: Liset Hager : [id number] MR#: [id number] Case Date: 12/05/2019 Surgeon: Surgeon(s) and Role: [...] Operative Note Patient Name: Liset Hager : [id number] MR#: [id number] Case Date: 12/05/2019 Surgeon: Surgeon(s) and Role: [...] Center 12/15/2019 1:[address] [facility] [address] [place] [address] 12/15/2019 2:45 PM Tucker Wiggins OT [facility] 04/03/2020 11:30 AM Zak Lee MD [facility] documented in this encounter Plan of Treatment [...] Tenolysis Flex Tendon, Palm & Finger, Ea ([id number]) 12/05/2019 11:12 AM EDT Tendon rupture of wrist, left, initial encounter documented in this encounter Visit Diagnoses Diagnosis Tendon rupture of wrist, left, initial encounter Tendon dysfunction Unspecified disorder of synovium, tendon, and bursa documented in this encounter Administered Medications Inactive Administered Medications - up to 3 most recent administrations Medication Order MAR Action Action Date Dose Rate Site lactated ringers infusion 1,000 mL, at [...] MD) documented in this encounter Care Teams Fast Brim Pouncer Relationship Specialty Start Date End Date Aneta Perez PA [address] [place] [id number] PCP - General Family Medicine 10/17/19 documented as of this encounter
--- OUTSIDE RECORDS SUMMARY | 2023-12-11 00:11 | XMS_ITS | Encounter Summary ---
[place] [address] Care Team Providers Care Campground Manager Name Role Phone Aneta Perez Primary Care Provider Reason for Visit * Reason Onset Date Comments New Medication Request 02/01/2020 Encounter Details Date Type Department Care Team (Late st Contact Info) Description 02/01/2020 Tele[place] [phone] Juan Manuel Sapp RN New Medication Request Social History Tobacco Use Types Packs/Day Years Used Date Smoking Tobacco: Every Day Cigarettes Smokeless Tobacco: Never Sex and Gender Information Value Date Recorded Sex Assigned at Not on file Gender Identity Not on file Sexual Orientation Not on file documented as of this encounter Miscellaneous Notes * Telephone Encounter - Juan Manuel Sapp RN - 02/13/2020 9:12 AM EDT No RTC will close encounter for now. Sent BringMeThat message as well. * Telephone Encounter - Juan Manuel Sapp RN - 02/01/2020 3:14 PM EDT Call received from Liset and her PCP asking for a RTC in regards to Liset stopping the Naprosyn andhaving pain. RTC and LM for Liset to RTC to nurse. * Telephone Encounter - Juan Manuel Sapp RN - 02/01/2020 12:12 PM EDT Liset calls to report she was seen in ER yestserday for her stomach. Reports Naprosyn was stopped and wants to know if there is anything else she can take for pain. RTC to Liset to discuss her situation. LM for her to RTC t nurse. documented in this encounter Plan of Treatment Not on file documented as of this encounter Visit Diagnoses Not on filedocumented in this encounter Care Teams Campground Manager Relationship Specialty Start Date End Date Aneta Perez PA [address] [place], [place] [id number] PCP - General Family Medicine 10/17/19 documented as of this encounter
--- OUTSIDE RECORDS SUMMARY | 2023-12-11 00:11 | XMS_ITS | Encounter Summary ---
Author Organization [facility] Address [facility] [place] [address] Care Team Providers Care Dye Colorist Formulator Name Role Phone Aneta Perez Primary Care Provider [phone] Reason for Referral * Occupational Therapy (Routine) - Specialty Diagnoses / Procedures Referred By Roberto palomares Referred To Contact Occupational Therapy Diagnoses Tendon rupture of wrist, left, initial encounter No surgery date Ulises Parry MD [facility] [place] [address] [facility] [address] [place] [address] Referral ID Status Reason Start Date Expiration Date V isits Requested Visits Authorized [id number] Evaluate and Treat 02/16/2020 02/15/2021 12 12 Reason for Visit * Reason Comments Follow Up Surgery s/p left index finge r tenolysis Encounter Details Date Type Department Care Team (Late st Contact Info) Description 02/16/2020 8:30 AM EDT Office [place] [address] Ulises Parry MD [facility] [place] [address] Tendon rupture of wrist, left, initial encounter; Trigger middle finger of left hand Social History Tobacco Use Types Packs/Day Years Used Date Smoking Tobacco: Every Day Cigarettes Smokeless Tobacco: Never Sex and Gender Information Value Date Recorded Sex Assigned at Not on file Gender Identity Not on file Sexual Orientation Not on file documented as of this encounter Patient Instructions * Patient Instructions* Lubna Edward, [facility] - 02/16/2020 8:30 AM EDT You were given written and verbal preoperative instructions today. You have been scheduled to have plastic surgery. The instructions below are specific to your procedure. You were also given a Perioperative Care Program brochure. This booklet provides a general overview for all procedures. Please review this brochure to help you prepare. If you are a smoker, we ask that you stop at least 2 months prior to your surgical date and remain nicotine free for at least a month after surgery. Smoking can impair healing and increase your chance of infection. Two Weeks prior to Surgery YOU DO NOT NEED TO STOP any aspirin or ibuprofen products before your surgery. Stop Garlic supplements, Ginseng, Ginkgo, Tumeric and Ron's Wort and any other herbals. You mayresume taking 48 hours after surgery. If you need medication for pain, [...] brush. DO NOT wear any rings, nail citizen of the [place] or artifical nails. The Same Day Surgery [...] prior to your surgery. Day of Surgery You will need a jeep driver. If you do not have a jeep driver, your surgery will be canceled. DO NOT wear any jewelry, makeup or artificial nails. Do wear comfortable, loose fitting clothes. Anesthesia will meet with you the morning of surgery. They will perform an assessment and review your history with you. Contact Information: During regular office hours (Thursday- Thursday, non-holiday 8:00 am- 5:00 pm) For an appointment or insurance questions For questions pertaining to your surgical date [phone] For nursing related questions [phone] On weekends, holidays or after office hours: Call [phone] and ask the dip lube operator to page the Plastic Surgery Resident orthotic practitioner. A corticosteroid, or steroid, injection is used to reduce inflammation in tendons or joints. It is often used to treat problems such as arthritis, tendinitis, and bursitis. These medicines can be injected directly into a painful, inflamed joint. They can also help reduce inflammation of a bursa, a s ac of fluid that cushions and lubricates areas where tendons, ligaments, skin, muscles, or bones rub against each other. A steroid injection can sometimes help with short-term pain relief when other treatments haven't worked. If steroid injections help, symptoms may improve for weeks or months. After Your Injection: Some people may feel more pain after being injected. This is normal, and it will go away soon. It may take 2-3 days to notice the effects of the injection. 1. Avoid activities that may strain the area for the next few days, but keep your fingers moving asinstructed. 2. Taking an anti-inflammatory medicine to reduce pain, swelling, or inflammation may help in the next few days. These include ibuprofen (Advil, Motrin) and naproxen (Aleve). Read and follow all instructions on the label. 3. If you have dressings over the injection site, keep them clean and dry. You may remove them whenyour doctor tells you to. Call your doctor now or seek immediate medical care if: You have signs of infection, such as: Increased pain, swelling, warmth, or redness. Red streaks leading from the site. Pus draining from the site. Swollen lymph nodes in your neck, armpits, or groin. A fever. Watch closely for changes in your health, and be sure to contact your doctor if you have any problems. documented in this encounter Progress Notes * Ulises Parry MD - 02/16/2020 8:30 AM EDT Plastic Surgery Post Op Note Reason for visit: F/U status post procedure Date of surgery: 12/05/2019 Procedure(s): Left index finger tenolysis. Complications: None reported HPI: Pt returns to clinic for follow up s/p left index tenolysis. She continues to have discomfort at the base of the index. She complains that her middle finger seems to be sticking on her, feeling as if this may be a trigger finer. She has discomfort mainly with her middle, ring and small finger. Examination: There were no vitals taken for this visit. Patient is alert, conversant, comfortable, ambulating Left upper extremity Incision: CDI, healing well. Mild scar contracture at volar MP at 15 deg.. PROM at the index PIP joints intact, AROM at DIP 0-30 with PIP blocking. No collection, no erythema, no evidence of cellulitis. With blocking has no active flexion at PIP and she still has significant intrinsic discoordination. Long finger actively triggering. Procedure: after verbal informed consent, under sterile conditions Kenalog 20 mg (0.5 cc of 40 mg/cc) mixed with 0.5cc lidocaine plain was instilled into the left middle finger A1 kat. Patient tolerated well, no immediate complication. Kenalog expiration date: 05/2021 Lot number: [id number] Xylocaine expiration date: 09/21 Lot number: [id number] Impression: Liset Hager is a 39 y.o. female who was seen today for follow- up after the above procedure. Please see the operative note for details. Reassured patient that her tendon is intact. At this time, there should be significant improvement but at this point there has been a delay. I spoke briefly about proceeding with a revision but I would like to have her semi awake during the procedure to evaluate for active flexion at FDP and possible intrinsic release/tighness. She is anxious to proceed with a revision as soon as possible but I expressed that she still has scar remolding. As far as her trigger finger, I discussed proceeding with steroid injection to help with her inflammation. Patient understands the plan and would like to move forth. Surgical Grid Surgeon: Sohan Duration: 60 min Timeframe: one month Procedure: Tenolysis flexor CPT: 75795 Surgical site: index finger Side: left Anesthesia: MAC Follow up: 7 Days THHF: Y/N: no H&P: no Implants needed: no OT needed at post op visit: no/ OT ROM Plan: Proceed with steroid injection, left long finger A1. Schedule tenolysis Follow up with OT for ROM s/p procedure. I, Do Esposito, have performed the documentation for this encounter in the presence of and acting as a scribe for Ulises Parry MD. documented in this encounter Procedure Notes * Ulises Parry MD - 02/16/2020 8:30 AM EDTAssociated Order(s): STEROID INJECTION Pre-Procedure Diagnose(s): Trigger middle finger of left hand Procedure: after verbal informed consent, under sterile conditions Kenalog 20 mg (0.5 cc of 40 mg/cc) mixed with 0.5cc lidocaine plain was instilled into the left long finger A1 kat. Patient tolerated well, no immediate complication. documented in this encounter Plan of Treatment Scheduled Referrals Name Type Priority Associated Diagnoses Order Schedule Referral to Occupational Therapy Outpatient Referral Routine Tendon rupture of wrist, left, initial encounter Ordered: 02/16/2020 documented as of this encounter Procedures Procedure Name Priority Date/Time Associated Diagnosis Comments STEROID INJECTION Routine 02/16/2020 8:3 0 AM EDT Trigger middle finger of left hand documented in this encounter Results * STEROID INJECTION (02/16/2020 8:30 AM EDT) Narrative Ulises Parry MD - 02/16/2020 8:30 AM EDT Ulises Parry MD ? 02/16/2020 ??8:49 AM Procedure: after verbal informed consent, under sterile conditions Kenalog 20 mg (0.5 cc of 40 mg/cc) mixed with 0.5cc lidocaine plain was instilled into the left long ??finger A1 kat. Patient tolerated well, no immediate complication. Ulises Parry MD PROCEDURE/MINOR VIVIAN GICAL ORDERABLES documented in this encounter Visit Diagnoses Diagnosis Tendon rupture of wrist, left, initial encounter Trigger middle finger of left hand Trigger finger (acquired) documented in this encounter Administered Medications Inactive Administered Medications - up to 3 most recent administrations Medication Order MAR Action Action Date Dose Rate Site triamcinolone acetonide (KENALOG-40) injection 20 mg 20 mg, Intramuscular, ONCE, 1 dose, On Vivian 02/16/20 at 0900, Routine Given 02/16/2020 8:33 AM EDT 20 mg 20-Other (document in comment section) documented in this encounter Care Teams Dye Colorist Formulator Relationship Specialty Start Date End Date Aneta Perez PA [address] [place] [address] PCP - General Family Medicine 10/17/19 documented as of this encounter
--- OUTSIDE RECORDS SUMMARY | 2023-12-11 00:11 | XMS_ITS | Encounter Summary ---
[facility] [place] [address] Care Team Providers Care Veneer Puller Name Role Phone Aneta Perez Primary Care Provider [phone] Reason for Visit * Reason Onset Date Comments Other 05/01/2020 Encounter Details Date Type Department Care Team (Late st Contact Info) Description 05/01/2020 [place] [phone] Kvng Rust RN Other Social History Tobacco Use Types Packs/Day Years Used Date Smoking Tobacco: Every Day Cigarettes Smokeless Tobacco: Never Sex and Gender Information Value Date Recorded Sex Assigned at Not on file Gender Identity Not on file Sexual Orientation Not on file documented as of this encounter Miscellaneous Notes * Telephone Encounter - Kvng Rust RN - 05/04/2020 9:55 AM EST Zak Lee MD sent to Kvng Rust RN Caller: Unspecified (3 days ago, 12:04 PM) ?? Sounds good. Does he want the patient to pick it up at her pharmacy or will they administer it at the infusion suite? If the latter, what kind of order form do they need or do we just sen them a script? Thanks, RTC to [facility] and they want it sent to her to take prior to the infusion. I called Liset Mcmillan and she agreed, and I see that Dr. Lee has already sent it to her pharmacy, thank you. * Telephone Encounter - Kvng Rust RN - 05/01/2020 4:12 PM EST RTC to Chelsie at [facility] and she reports that Liset Mcmillan had some nausea in the middle of her infusion, andthat it has happened before. Wanting to know if we could write a script for Zofran, or some anti nausea med.I let her know that I would send this message to Dr. Lee. documented in this encounter Plan of Treatment Not on file documented as of this encounter Visit Diagnoses Not on filedocumented in this encounter Care Teams Veneer Puller Relationship Specialty Start Date End Date Aneta Perez PA [address] [place] [address] PCP - General Family Medicine 10/17/19 documented as of this encounter
--- OUTSIDE RECORDS SUMMARY | 2023-12-11 00:11 | XMS_ITS | Encounter Summary ---
[place] [address] Care Team Providers Care Elastic Cutter Name Role Phone Aneta Perez Primary Care Provider [phone] Encounter Details Date Type Department Care Team (Late st Contact Info) Description 04/30/2020 [place] [phone] Dong Roldan Social History Tobacco Use Types Packs/Day Years Used Date Smoking Tobacco: Every Day Cigarettes Smokeless Tobacco: Never Sex and Gender Information Value Date Recorded Sex Assigned at Not on file Gender Identity Not on file Sexual Orientation Not on file documented as of this encounter Miscellaneous Notes * Telephone Encounter - Dong Roldan - 04/30/2020 1:56 PM EST LMOAM X1 to schedule 6 month f/u with Dr. Lee. documented in this encounter Plan of Treatment Not on file documented as of this encounter Visit Diagnoses Not on filedocumented in this encounter Care Teams Elastic Cutter Relationship Specialty Start Date End Date Aneta Perez PA [address] [place] [address] PCP - General Family Medicine 10/17/19 documented as of this encounter
--- OUTSIDE RECORDS SUMMARY | 2023-12-11 00:11 | XMS_ITS | Encounter Summary ---
Author Organization [facility] Address [facility] [place] [address] Care Team Providers Care Windows Migration Technician Name Role Phone Aneta Perez Primary Care Provider [phone] Reason for Visit * Reason Comments Follow Up Surgery s/p tendon transfer dos 12/05/19 Encounter Details Date Type Department Care Team (Late st Contact Info) Description 12/15/2019 1:00 PM EDT Office [place] [address] Ulises Parry MD [facility] [place] [address] Follow-up exam Social History Tobacco Use Types Packs/Day Years Used Date Smoking Tobacco: Every Day Cigarettes Smokeless Tobacco: Never Sex and Gender Information Value Date Recorded Sex Assigned at Not on file Gender Identity Not on file Sexual Orientation Not on file documented as of this encounter Progress Notes * Do Esposito H - 12/15/2019 1:00 PM EDT Plastic Surgery Post Op Note Reason for visit: F/U status post procedure Date of surgery: 12/05/2019 Procedure(s): Left index finger tenolysis. Complications: None reported HPI: Pt reports to clinic for her first post operative visit s/p left index tendolysis Examination: LMP 11/19/2019 Patient is alert, conversant, comfortable, ambulating Dressing removed. Incision: CDI, healing well. No collection, no erythema, no evidence of cellulitis. With blocking has Active flexion at PIP but she still has significant intrinsic tightness/discoordination. Impression: Liset Hager is a 39 y.o. female who was seen today for follow- up after the above procedure. Please see the operative note for details. She is doing well without complaints. Plan: OT to do aggressive ROM with MP blocked in extension. Intrinsic stretching Follow up: 1 month Ulises Parry MD documented in this encounter Plan of Treatment Not on file documented as of this encounter Visit Diagnoses Diagnosis Follow-up exam Unspecified follow-up examination documented in this encounter Care Teams Windows Migration Technician Relationship Specialty Start Date End Date Aneta Peerz PA [address] [place], [place] [id number] PCP - General Family Medicine 10/17/19 documented as of this encounter
--- OUTSIDE RECORDS SUMMARY | 2023-12-11 00:11 | XMS_ITS | Encounter Summary ---
[place] [address] Care Team Providers Care Groover And Turner Name Role Phone Aneta Perez Primary Care Provider [phone] Encounter Details Date Type Department Care Team ([facility] st Contact Info) Description 01/06/2020 Telephone [place] [phone] Do Esposito Social History Tobacco Use Types Packs/Day Years Used Date Smoking Tobacco: Every Day Cigarettes Smokeless Tobacco: Never Sex and Gender Information Value Date Recorded Sex Assigned at Not on file Gender Identity Not on file Sexual Orientation Not on file documented as of this encounter Miscellaneous Notes * Telephone Encounter - Do Esposito - 01/06/2020 11:00 AM EDT Faxed most recent office note as well as the Operative report to her OT provider (Mena Gunn) over at [place]. To begin E-Stem treatment. I called patient to alert her. documented in this encounter Plan of Treatment Not on file documented as of this encounter Visit Diagnoses Not on filedocumented in this encounter Care Teams Groover And Turner Relationship Specialty Start Date End Date Aneta Perez PA [address] [place] [id number] PCP - General Family Medicine 10/17/19 documented as of this encounter
--- OUTSIDE RECORDS SUMMARY | 2023-12-11 00:11 | XMS_ITS | Encounter Summary ---
[place] [address] Care Team Providers Care Pharmacogeneticist Name Role Phone Aneta Perez Primary Care Provider [phone] Encounter Details Date Type Department Care Team (Late st Contact Info) Description 03/26/2020 Telephone [place] [phone] Fabiola Batista RN Social History Tobacco Use Types Packs/Day Years Used Date Smoking Tobacco: Every Day Cigarettes Smokeless Tobacco: Never Sex and Gender Information Value Date Recorded Sex Assigned at Not on file Gender Identity Not on file Sexual Orientation Not on file documented as of this encounter Miscellaneous Notes * Telephone Encounter - Fabiola Batista RN - 03/26/2020 4:56 PM EDT Patient called and wanted to know when her next appointment was. In encounters it says the 04/04 appointment was canceled. In her brief op note it stated the patient should come to clinic 2 days aftersurgery for dressing removal. She is now scheduled with Dr. Parry on . documented in this encounter Plan of Treatment Not on file documented as of this encounter Visit Diagnoses Not on filedocumented in this encounter Care Teams Pharmacogeneticist Relationship Specialty Start Date End Date Aneta Perez PA [address] [place] [address] PCP - General Family Medicine 10/17/19 documented as of this encounter
--- OUTSIDE RECORDS SUMMARY | 2023-12-11 00:11 | XMS_ITS | Encounter Summary ---
[place] [address] Care Team Providers Care Pattern Illustrator Name Role Phone Aneta Perez Primary Care Provider [phone] Encounter Details Date Type Department Care Team ([facility] st Contact Info) Description 04/20/2020 Telephone [place] [phone] Mel Sevilla Social History Tobacco Use Types Packs/Day Years Used Date Smoking Tobacco: Every Day Cigarettes Smokeless Tobacco: Never Sex and Gender Information Value Date Recorded Sex Assigned at Not on file Gender Identity Not on file Sexual Orientation Not on file documented as of this encounter Miscellaneous Notes * Telephone Encounter - Mel Sevilla - 04/20/2020 8:44 AM EST Caitlyn calls from [facility] to ask for a PA for Liset Mcmillan's rituxan. Per Haley, this medication does not need a PA. Caitlyn at [facility] is requesting a reference number with initials of the person who obtained reference number. documented in this encounter Plan of Treatment Not on file documented as of this encounter Visit Diagnoses Not on filedocumented in this encounter Care Teams Pattern Illustrator Relationship Specialty Start Date End Date Aneta Perez PA [address] [place] [address] PCP - General Family Medicine 10/17/19 documented as of this encounter
--- OUTSIDE RECORDS SUMMARY | 2023-12-11 00:11 | XMS_ITS | Encounter Summary ---
Author Organization [facility] [place] [address] Care Team Providers Care Collar Trimmer Name Role Phone Aneta Perez Primary Care Provider [phone] Reason for Referral * Consultation (Routine) - Closed Specialty Diagnoses / Procedures Referred By Roberto t Referred To Contact [facility] Diagnoses Trigger middle finger of left hand (concepcion) pending rheumatology appt Ulises Parry MD [facility] [place] [address] [facility] [place] [address] Referral ID Status Reason Start Date Expiration Date V isits Requested Visits Authorized [id number] Closed Consult, Test & Treat 07/25/2020 07/25/2021 1 1 * Occupational Therapy (Routine) - Closed Specialty Diagnoses / Procedures Referred By Roberto palomares Referred To Contact Occupational Therapy Diagnoses Trigger middle finger of left hand Ulises Parry MD [facility] [place] [address] [facility] [address] [place] [address] Referral ID Status Reason Start Date Expiration Date V isits Requested Visits Authorized [id number] Closed Evaluate and Treat 07/25/2020 07/25/2021 30 30 Reason for Visit * Reason Comments Follow-up left hand contractur e Encounter Details Date Type Department Care Team (Late st Contact Info) Description 07/25/2020 8:30 AM EST Office Visit Plastic Surgery at [facility] [address] [place] [address] Ulises Parry MD [facility] [place] [address] Trigger middle finger of left hand Social History Tobacco Use Types Packs/Day Years Used Date Smoking Tobacco: Every Day Cigarettes Smokeless Tobacco: Never Sex and Gender Information Value Date Recorded Sex Assigned at Not on file Gender Identity Not on file Sexual Orientation Not on file documented as of this encounter Progress Notes * Ulises Parry MD - 07/25/2020 8:30 AM EST Plastic Surgery Post Op Note Reason for [...] index finger and index lumbricals release. She continues to express no significant improvement since her last visit. She mentions several times through out the visit that she is frustrated, that she doesn't know what to do in regards to her finger. At times, she wonders of amputating the finger would help in some capacity. She has been going through a lot lately. She shares that recently two of her uncles oneweek a part and admits that she did try committing suicide and was admitted for 16 days to the hospital. She has been seeing 2 different providers that have been working with her regarding her depression and anxiety closely, once a week visits. She is very sensitive and complains of having significant discomfort especially downward the bottomof the wrist and into the arm slightly. She is concerned about her long and ring finger of the left hand. She is worried about the overall strength. Examination: There were no vitals taken for [...] Please see the operative note for details. Right now, the priority is for her to get to agood place with her mental health. I have confirmed with her that she is seeing someone to help with her anxiety and depression. She does have a follow up appt with her Parks Recreation Coordinator, and I will make a referral to pain, and if more surgery/rehab is planned we will need to get a solution prior as she cannot take NSAIDs I Looking forward may consider scare contracture release and possible kat reconstruction sometime in August/September Plan: Referral placed for extension splint Follow up early August Referral to Pain Clinic I, Do Esposito, have performed the documentation for this encounter in the presence of and acting as a scribe for Ulises Parry MD. documented in this encounter Plan of Treatment Scheduled Referrals Name Type Priority Associated Diagnoses Order Schedule Referral to Occupational Therapy Outpatient Referral Routine Trigger middle finger of left hand Ordered: 07/25/2020 Referral to Pain Management Outpatient Referral Routine Trigger middle finger of left hand Ordered: 07/25/2020 documented as of this encounter Visit Diagnoses Diagnosis Trigger middle finger of left hand Trigger finger (acquired) documented in this encounter Care Teams Collar Trimmer Relationship Specialty Start Date End Date Aneta Perez PA [address] [place] [id number] PCP - General Family Medicine 10/17/19 documented as of this encounter
--- OUTSIDE RECORDS SUMMARY | 2023-12-11 00:11 | XMS_ITS | Encounter Summary ---
Author Organization [facility] Address [facility] [place] [address] Care Team Providers Care City Tax Auditor Name Role Phone Aneta Perez Primary Care Provider [phone] Reason for Visit * Occupational Therapy (Routine) - Specialty Diagnoses / Procedures Referred By Roberto palomares Referred To Contact Occupational Therapy Diagnoses Tendon rupture of wrist, left, initial encounter No surgery date Ulises Parry MD [facility] [place] [address] [facility] [address] [place] [address] Referral ID Status Reason Start Date Expiration Date V isits Requested Visits Authorized [id number] Evaluate and Treat 02/16/2020 02/15/2021 12 12 Encounter Details Date Type Department Care Team (Late st Contact Info) Description 04/04/2020 9:00 AM EST Office Visit Occupational Therapy at [facility] [address] [place] [phone] Liss Armstrong OT [facility] PHYSICAL MEDICINE & [place] [address] Tendon dysfunction Social History Tobacco Use Types Packs/Day Years Used Date Smoking Tobacco: Every Day Cigarettes Smokeless Tobacco: Never Sex and Gender Information Value Date Recorded Sex Assigned at Not on file Gender Identity Not on file Sexual Orientation Not on file documented as of this encounter Progress Notes * Liss Armstrong OT - 04/04/2020 9:00 AM EST OCCUPATIONAL THERAPY ORTHOTIC EVALUATION Referral Source: Dr. Sohan Christian MD Follow-up: One week for suture removal Total Treatment time: 45 Minutes Timed Code Treatment Time: 45 minutes OCCUPATIONAL PROFILE: Liset Hager is a 39 y.o. year old Right hand dominant female who is seen today at one week s/p surgery for her LEFT index finger lack of digit flexion. Exploration surgeryfound her profundus tendon to be non-functional and was corrected with tendon transfer to her long finger profundus muscle belly. Liset Hager is referred to Occupational Therapy for evaluation and treatment to include fabrication of a custom orthosis. Patient presents today alone. Date of onset of symptoms: chronic Date of surgery: 03/26/20 Pertinent History and/or Co-morbidities: 1. Tendon dysfunction 2. 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 Patienthas not been using her left hand for any activity or movement. She has been out of work since surgery last Thursday. She is queasy with dressing change and asked for wound to not be touched/cleaned up. Global Mental Function: With gross screening of patient???s global mental functions, patient demonstrates orientation to person, place, time, and situation. Patient???s affect/behavior is appropriateand cooperative today. Patient Specific Functional Scale (PSFS) (unable to perform 0/10 - Able to perform without difficulty 10/10) Activity At Evaluation 1.) use of left hand /10 2.) driving 10/08 3.) sleeping /10 4.) self-care 5/10 Disabilities of the Arm, Shoulder, and Hand (DASH): THE DISABILITIES OF THE ARM,SHOULDER AND HAND SCORE (DASH) 12/15/2019 1. Open a tight or new jar Severe Difficulty 2. Write Severe difficulty 3. Turn a albert No difficulty 4. Prepare a meal Moderate difficulty 5. Push open a heavy door Mild difficulty 6. Place an object on a shelf above your head Mild difficulty 7. Do heavy bellows tester (eg wash morrison, wash floors) Severe difficulty 8. Garden or do yard work Moderate difficulty 9. Make a bed Severe difficulty 10. Carry a shopping bag or briefcase Severe difficulty 11. Carry a heavy object (over 10 lbs) Severe difficulty 12. Change a lightbulb overhead Severe difficulty 13. Wash or blow dry your hair Severe difficulty 14. Wash your back Unable 15. Put on a pullover sweater Severe difficulty 16. Use a knife to cut food Severe difficulty 17. Recreational activities which require little effort (eg cardplaying, knitting, etc) Mild difficulty 18. Recreational activities in which you take some force or impact through your arm, shoulder or hand (eg golf, hammering, tennis, etc) Severe difficulty 19. Recreational activities in which you move your arm freely (eg playing zPerfectGifte, ServiceNow, etc) Severe difficulty 20. Manage transportation needs (getting from one place to another) Moderate difficulty 21. Sexual activities Severe difficulty 22. During the past week, to what extent has your arm, shoulder or hand problem interfered with your normal social activities with family, friends, neighbours or groups? Quite a bit 23. During the past week, were you limited in your work or other regular daily activities as a result of your arm, shoulder or hand problem? Unable 24. Arm, shoulder or hand pain Moderate 25. Arm, shoulder or hand pain when you performed any specific activity Moderate 26. Tingling (pins and needles) in your arm, shoulder or hand Extreme 27. Weakness in your arm, shoulder or hand Severe 28. Stiffness in your arm, shoulder or hand Severe 29. During the past week, how much difficulty have you had sleeping because of the pain in your arm, shoulder or hand? Moderate difficulty 30. I feel less capable, less confident or less useful because of my arm, shoulder or hand problem Strongly agree If you play more than one sport or instrument (or play both), please answer with respect to that activity which is most important to you. Do you currently play a sport or an instrument? No DASH Score 65.83 Standardized measurement of functional limitation related to an upper extremity disability, using 0-100 scale indicating percent of perceived functional impairment. Pain: (Assessed using the Visual Analog Pain Scale) At Rest: 4/10 With Activity: 10/08 She requests pain meds with Dr. Parry today Treatment Today: Assessment of her hand at one week s/p surgery of tendon transfer to allow for active flexion and extension of her index finger Removal of dressings; light cleaning to volar incision but patient was queasy and so only minimal touching Patient seen with Dr. Parry: review surgery findings and procedure: instructions for sutures for one more week, initiate local therapy for a. Passive mobility of her index finger into palmar flexion and facilitate extension to tolerance at her MCP joint B. 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 Has good relationship with her OT from previous surgery. CLINICAL DECISION MAKING: Liset Hager has a well fitting orthosis post therapy. Liset Hager is able to independently verbalize and demonstrate the recommended home program following instructions today. Liset Hager has good potential for gains with therapy/home program use. Her finger is quite tight but she seems motivated for recovery and active use. Patient knows to call with any questions or concerns. Short Term Goals (to be met by end of the visit today): Date Goal Met: Today 1. Liset Hager will demonstrate independence with donning and doffing of her orthosis and verbalization of purpose. Goal Status: Meets. Today 2. Liset Hager will be independent with home exercises as evident with demonstration intherapy. Goal Status: Meets PLAN: RTC in one week for above (X) Liset Hager participated in the evaluation, collaborated on treatment goals, and agrees to the treatment plan. documented in this encounter Plan of Treatment Scheduled Referrals Name Type Priority Associated Diagnoses Order Schedule Referral to Occupational Therapy Outpatient Referral Routine Tendon rupture of wrist, left, initial encounter Ordered: 02/16/2020 documented as of this encounter Visit Diagnoses Diagnosis Tendon dysfunction Unspecified disorder of synovium, tendon, and bursa documented in this encounter Care Teams City Tax Auditor Relationship Specialty Start Date End Date Aneta Perez PA [address] [place] [id number] PCP - General Family Medicine 10/17/19 documented as of this encounter
--- OUTSIDE RECORDS SUMMARY | 2023-12-11 00:11 | XMS_ITS | Encounter Summary ---
[place] [address] Care Team Providers Care Photographer News Name Role Phone Aneta Perez Primary Care Provider [phone] Reason for Visit * Reason Onset Date Comments Follow-up 04/16/2020 Encounter Details Date Type Department Care Team (Late st Contact Info) Description 04/16/2020 Tele[place] [phone] Juan Manuel Sapp RN Follow-up Social History Tobacco Use Types Packs/Day Years Used Date Smoking Tobacco: Every Day Cigarettes Smokeless Tobacco: Never Sex and Gender Information Value Date Recorded Sex Assigned at Not on file Gender Identity Not on file Sexual Orientation Not on file documented as of this encounter Miscellaneous Notes * Telephone Encounter - Juan Manuel Sapp RN - 04/18/2020 3:20 PM EST Lidia Vale sent to Juan Manuel Sapp RN Caller: Unspecified (2 days ago, ??1:03 PM) ?? Linda faxed a cover sheet stating no pa needed and the demographics of the patient to [place]. Height is 157.5 cm Given to nursing at [facility]. Called to advise of message above and was told that writing that a PA is not needed is not acceptable. They are requesting a reference # indicating this. Please fax to [phone] * Telephone Encounter - Juan Manuel Sapp RN - 04/17/2020 11:25 AM EST Call received from Caitlyn at [facility]. She states she received a referral but she is missing information. RTC to Caitlyn and she would like the PA, Demographics and Height faxed to [phone]. Caitlyn states they will schedule once the information is received. * Telephone Encounter - Juan Manuel Sapp RN - 04/16/2020 4:10 PM EST Liset calls to state that she does not know when she will receive her infusions. She is waiting to hear from [facility] about appointment. Liset reports her pain is in her Back, Knees, and Neck. Denies any red, hot, swollen joints, feversor chills. States Infusions usually help. Wants to know if Dr. Lee can give her something else for pain while she is waiting to get scheduled? Not fond of Prednisone as it increases her blood sugars. documented in this encounter Plan of Treatment Not on file documented as of this encounter Visit Diagnoses Not on filedocumented in this encounter Care Teams Photographer News Relationship Specialty Start Date End Date Aneta Perez PA [address] [place] [id number] PCP - General Family Medicine 10/17/19 documented as of this encounter
--- OUTSIDE RECORDS SUMMARY | 2023-12-11 00:11 | XMS_ITS | Encounter Summary ---
Author Organization [facility] [place] [address] Care Team Providers Care Household Appliances Salesperson Name Role Phone Aneta Perez Primary Care Provider [phone] Reason for Visit * Occupational Therapy ([facility]) - Specialty Diagnoses / Procedures Referred By Roberto palomares Referred To Contact Occupational Therapy Diagnoses Tendon dysfunction Ulises Steel MD [facility] [place] [address] Tucker Wiggins, OT [facility] PHYSICAL MEDICINE & [place] [address] Referral ID Status Reason Start Date Expiration Date V isits Requested Visits Authorized [id number] Evaluate and Treat 12/05/2019 12/04/2020 12 12 Encounter Details Date Type Department Care Team (Late st Contact Info) Description 12/15/2019 2:30 PM EDT Office Visit Occupational Therapy at [place] [address] [place] [address] Tucker Wiggins, OT [facility] PHYSICAL MEDICINE & [place] [address] Tendon dysfunction Social History Tobacco Use Types Packs/Day Years Used Date Smoking Tobacco: Every Day Cigarettes Smokeless Tobacco: Never Sex and Gender Information Value Date Recorded Sex Assigned at Not on file Gender Identity Not on file Sexual Orientation Not on file documented as of this encounter Miscellaneous Notes * Initial Evaluation - Tucker Wiggins, OT - 12/15/2019 2:30 PM EDT OCCUPATIONAL THERAPY ORTHOTIC EVALUATION Referral Source:: Ulises Christian MD Follow-up: 3 weeks - not scheduled to date Total Treatment time: 60 Minutes Timed Code Treatment Time: 60 minutes OCCUPATIONAL PROFILE: Liset Hager is a 39 y.o. year old Right hand dominant female who has had a total of 3 surgical procedurs on her Left hand for tendon repair/tenolysis. Liset Mcmillan has a medical diagnosis of Seropositive rheumatoid Arthritis that was diagnosed about 3-4 years ago. She has begun infusion treatments which occur every 6 months for pain. Zulema has this most recent surgical procedure to her LEFT hand where the FDP was freed from scar tissue, as well as, the median nerve cleaned from scar tissue. The surgeon identified She was noted to not have an intact FDS tendon nor A1 kat, due to previous rupture from her arthritis. Liset Mcmillan's right index finger is potentially the same as it presents with no activity of the FDS, she reports she plans to have surgery on this finger next year. Liset Hager is referred to Occupational Therapy for evaluation and treatment to include fabrication of a custom orthosis to work on extension of the index finger for night time wearing, and to begin range of motion post the tenolysis procedure. Patient presents today alone. Date of onset of symptoms: Gradual onset over the past 3-4 years Date of surgery: 12/05/19 Pertinent History and/or Co-morbidities: 1. Tendon dysfunction Occupation: [employer] Vocational status: off work now due to surgery Avocational Activities: Hang with friends, swimming OCCUPATIONAL PERFORMANCE DEFICITS: Liset Hager is limited with current performance due to pain, swelling, stiffness, limited mobility/range of motion, limited strength and open wound. Liset Mcmillan reports she has really had no pain each day, however with movement for range of motion and stretching into extension of the index finger she does experience a level of pain. Liset Mcmillan has been adapting around the lack of function for flexion at her PIP joints for years now, so she is limited in tasks to begin with. She does have assistance at home of her boyfriend. 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 Global Mental Function: With gross screening of patient???s global mental functions, patient demonstrates orientation to person, place, time, and situation. Patient???s affect/behavior is appropriateand cooperative today. Patient Specific Functional Scale (PSFS) (unable to perform 0/10 - Able to perform without difficulty 10/10) Activity At Evaluation 1.) bathing 7 2.) dressing - buttons, snaps, zippers 0 3.) work tasks 0 4.) home management/dooking 0 5.) driving 0 Average Score: 1.4 Disabilities of the Arm, Shoulder, and Hand [...] your head Mild difficulty 7. Do heavy assembler dielectric heater (eg wash morrison, wash floors) Severe difficulty [...] move your arm freely (eg playing frisbee, badminton, etc) Severe difficulty 20. Manage transportation needs [...] Scale) At Rest: 0/10 With Activity: 0/10 ACTIVE RANGE OF MOTION: Measured in degrees of active motion with goniometer and/or distance measured from finger tip to the distal palmar crease (DPC) DIGITS LEFT: MP PIP DIP DPC Index Finger -62/87 0/0 0/14 NT Treatment Today: Orthosis - Finger Orthotic, W/O Jts, Custom, Fit & Adj ([id number]) Educated patient in etiology and biomechanics as related to patient's symptoms Fabricated hand based index finger extension orthosis Instructed in orthosis wear and care to wear at night time to work on stretching MP joint into extension Range of Motion Exercises: Wrist flexion/extension, wrist radial and ulnar deviation, forearm supination/pronation for stiffness post immobilization of post op cast Lumbricals - MP flexion/extension Composite fisting for flexion and full extension Stretch of finger intrinsics - see scanned documents Educated for scar massage to begin post dissolvable sutures falling out CLINICAL DECISION MAKING: Liset Hager has a well fitting orthosis post therapy. Liset Hager is able to independently verbalize and demonstrate the recommended home program following instructions today. Liset Hager has good potential for gains with therapy/home program use. Patientknows to call with any questions or concerns. Liset Mcmillan lives an hour and a half away and would liketo participate in therapy closer to her home. Provided Liset Mcmillan with contact name and number [facility]. Short Term Goals (to be met by end of the visit today): Date Goal Met: Today 1. Liset Hager will demonstrate independence with donning and doffing of her orthosis and verbalization of purpose. Goal Status: Meets. Today 2. Liset Hager will be independent with home exercises as evident with demonstration intherapy. Goal Status: Meets PLAN: one time visit for orthosis fabrication. Zulema Mcmillan has a follow up appointment with her MD in3 weeks. She was provided with hard copy 's orders today for her OT evaluation and treatment, asshe will call her local hand therapy clinic today or tomorrow to set up an initial evaluation to begin treatment. Operative note hard copy was also provided for her therapist to review as part of theevaluation and treatment planning. Provided contact information for this therapist should her therapist have any further questions. (X) Liset Hager participated in the evaluation, collaborated on treatment goals, and agrees to the treatment plan. documented in this encounter Plan of Treatment Scheduled Referrals Name Type Priority Associated Diagnoses Orde r Schedule Referral to Occupational Therapy Outpatient Referral Routine Tendon dysfunction Ordered: 12/05/2019 documented as of this encounter Visit Diagnoses Diagnosis Tendon dysfunction Unspecified disorder of synovium, tendon, and bursa documented in this encounter Care Teams Household Appliances Salesperson Relationship Specialty Start Date End Date Aneta Perez PA [address] [place] [id number] PCP - General Family Medicine 10/17/19 documented as of this encounter
--- OUTSIDE RECORDS SUMMARY | 2023-12-11 00:11 | XMS_ITS | Encounter Summary ---
Author Organization [facility] [place] [address] Care Team Providers Care Heading And Priming Operator Name Role Phone Aneta Perez Primary Care Provider [phone] Encounter Details Date Type Department Care Team ([facility] st Contact Info) Description 05/03/2020 Orders [place] [address] Zak Lee MD [facility] DR [place] [address] High risk medication use; Infusion reaction, subsequent encounter; Drug-induced nausea and vomiting Social History Tobacco Use Types Packs/Day Years Used Date Smoking Tobacco: Every Day Cigarettes Smokeless Tobacco: Never Sex and Gender Information Value Date Recorded Sex Assigned at Not on file Gender Identity Not on file Sexual Orientation Not on file documented as of this encounter Miscellaneous Notes * Addendum Note - Tylor Roberson RPH - 05/03/2020 9:43 AM ESTAddended by: TYLOR ROBERSON on: 08/28/2020 02:09 PM Modules accepted: Orders documented in this encounter Plan of Treatment Not on file documented as of this encounter Visit Diagnoses Diagnosis High risk medication use Encounter for long-term (current) use of other medications Infusion reaction, subsequent encounter Drug-induced nausea and vomiting Nausea with vomiting documented in this encounter Care Teams Heading And Priming Operator Relationship Specialty Start Date End Date Aneta Perez PA [address] [place] [phone] PCP - General Family Medicine 10/17/19 documented as of this encounter
--- OUTSIDE RECORDS SUMMARY | 2023-12-11 00:11 | XMS_ITS | Encounter Summary ---
[place] [address] Care Team Providers Care Bridge Construction Inspector Name Role Phone Aneta Perez Primary Care Provider [phone] Encounter Details Date Type Department Care Team (Latest Contact Info) Description 04/11/2020 1:00 PM EST Laboratory Appointment Lab [address] [place] [id number] High risk medication use; Rheumatoid arthritis involving multiple sites with positive rheumatoid factor; Other specified diabetes mellitus with other specified complication, unspecified whether assisted insulin use Social History Tobacco Use Types [...] Name Priority Date/Time Associated Diagnosis Comments HC C-REACTIVE PROTEIN Routine 04/11/2020 1:10 PM EST Rheumatoid arthritis involving multiple sites with positive rheumatoid factor HEMOGRAM Routine 04/11/2020 1:10 PM EST High risk medication use Rheumatoid arthritis involving multiple sites with positive rheumatoid factor DIFFERENTIAL, AUTOMATED Routine 04/11/2020 1:10 PM EST High risk medication use Rheumatoid arthritis involving multiple sites with positive rheumatoid factor HC ESR-SEDIMENTATION RATE, BLOOD Routine 04/11/2020 1:10 PM EST Rheumatoid arthritis involving multiple sites with positive rheumatoid factor HC CBC,PLT & AUTO DIFF Routine 0 1:10 PM EST High risk medication use Rheumatoid arthritis involving multiple sites with positive rheumatoid factor HC HEMOGLOBIN A1C Routine 04/11/2020 1:1 0 PM EST Other specified diabetes mellitus with other specified complication, unspecified whether assisted insulin use HC IGG, SERUM Routine 04/11/2020 1:10 PM EST High risk medication use Rheumatoid arthritis involving multiple sites with positive rheumatoid factor COMPREHENSIVE METABOLIC PANEL (NON-FASTING) Routine 04/11/2020 1:10 PM EST High risk medication use Rheumatoid arthritis involving multiple sites with positive rheumatoid factor Other specified diabetes mellitus with other specified complication, unspecified whether terminal press operator insulin use documented in this encounter Results * (ABNORMAL) Differential, Automated (04/11/2020 1:10 PM EST) Neutrophils % 73.7 % [facility] Neutr Abs (ANC) 9.27(H) 1.70 - 6.10 x10(3)/ L [facility] Lymphocytes % 18.1 % [facility] Lymphocytes Abs 2.3 0.9 - 3.2 x10(3)/[facility] Monocytes % 4.0 % [facility] Monocyte Abs 0.5 0.3 - 0.9 x10(3)/[facility] Eosinophils % 3.1 % [facility] Eosinophils Abs 0.4 0.0 - 0.4 x10(3)/ L [facility] Basophils % 0.9 % [facility] Basophils Abs 0.1 0.0 - 0.1 x10(3)/ L [facility] Immature Gran % 0.20 % [facility] Comment: Immature granulocytes(IG's)percentage and absolute count will include metamyelocytes, myelocytes, and promyelocytes. Blood smears from CBCs yielding IG's will be scanned manually for concordance. If this scan disagrees with the automated IG or if promyelocytes are noted, a manual differential will be performed. Yanni Gran Abs 0.03 0.00 - 0.04 x10(3)/mc L [facility] Blood specimen (specimen) 04/11/2020 1:10 PM EST 04/11/2020 1:15 PM EST Narrative Resulting Agency Comment Spec In Lab Zak Lee MD HEMATOLOGY ORDERA BLES [facility] [place] [address] * (ABNORMAL) Hemogram (04/11/2020 1:10 PM EST) WBC 12.6(H) 4.0 - 9.5 x10(3)/[facility] RBC 4.31 4.00 - 5.21 x10(6)/[facility] Hemoglobin 14.0 11.7 - 15.5 gm/dL [facility] Hematocrit 41.3 35.7 - 45.8 % [facility] MCV 95.8(H) 82.6 - 94.4 fL [facility] MCH 32.5(H) 27.1 - 32.0 pg [facility] MCHC 33.9 31.7 - 35.0 gm/dL [facility] Platelets 444(H) 145 - 357 x10(3)/[facility] RDWSD 41.3 37.0 - 46.0 [facility] RDWCV 11.9 11.5 - 14.1 % [facility] MPV 9.1 7.6 - 12.9 fL [facility] nRBC % Auto 0.0 % [facility] nRBC Abs Auto 0.000 0.000 - 0.000 x10(3)/[facility] Blood specimen (specimen) 04/11/2020 1:10 PM EST 04/11/2020 1:15 PM EST Narrative Resulting Agency Comment Spec In Lab Zak Lee MD HEMATOLOGY ORDERA BLES Performing Organization Address [facility] Co de Phone Number [facility] [place] [address] * (ABNORMAL) Sedimentation rate (04/11/2020 1:10 PM EST) Sed Rate 55(H) 2 - 37 mm/hr [facility] Comment: Effective May 11, 2019 new capillary photometric technology has resulted in a change in reference ranges. It is recommended that each ESR result be reviewed with its own age appropriate reference range. Blood specimen (specimen) 04/11/2020 1:10 PM EST 04/11/2020 1:15 PM EST Narrative Resulting Agency Comment Spec In Lab Zak Lee MD HEMATOLOGY ORDERA BLES Performing Organization Address [facility] de Phone Number [facility] [place] [address] * (ABNORMAL) Hemoglobin A1c (04/11/2020 1:10 PM EST) [facility] Hemoglobin A1C 7.5(H) 4.3 - 5.6 % [facility] Comment: Reference Range: 4.3 - [...] Mellitus, Diabetes Care 2013; 36: Suppl. 1, S67-74 Est Avg Gluc 168 mg/dL [facility] Comment: eAG equivalents for HbA1c [...] into estimated average glucose values. ??Diabetes Care 2008:31(8):9752-5024. Blood specimen (specimen) 04/11/2020 1:10 PM EST 04/11/2020 1:15 PM EST Narrative Resulting Agency Comment Spec In Lab Zak Lee MD CHEMISTRY ORDERAB LES [facility] [place] [address] * (ABNORMAL) Comprehensive metabolic panel (non-fasting) (04/11/2020 1:10 PM EST) Glucose Lvl 312(H) 65 - 199 mg/dL [facility] Comment:Diabetes: >=200 mg/d L plus symptoms BUN 10 8 - 18 mg/dL [facility] Creatinine 0.81 0.70 - 1.20 mg/dL [facility] Sodium 136 135 - 145 mmol/L [facility] Potassium 3.9 3.5 - 5.0 mmol/L [facility] Comment: Please note: ??Patients with WBC >100,000 may have falsely elevated Potassium levels. ??For accurate Potassium quantification in these patients send serum separator tube (gold top) for subsequent determinations. ??Contact the Clinical Chemistry Laboratory if there are any questions. Chloride 99 98 - 107 mmol/L [facility] CO2 21(L) 22 - 31 mmol/L [facility] Anion Gap 16(H) 5 - 15 mmol/L [facility] Calcium 9.7 8.5 - 10.5 mg/dL [facility] Total Protein 8.1(H) 6.1 - 8.0 gm/dL [facility] Albumin 4.6 3.2 - 5.2 gm/dL [facility] AST 12 0 - 30 unit/L [facility] ALT 24 0 - 30 unit/L [facility] Alk Phos 148(H) 35 - 105 unit/L [facility] Total Bilirubin 0.2 0.2 - 1.3 mg/dL [facility] Estimated GFR 92 >=60 mL/min/1. 73 m?? [facility] Comment: The eGFR was calculated using the CKD-EPI equation. As with all creatinine based estimates of kidney function, eGFR values calculated with the CKD-EPI equation are not accurate in patients with acute kidney failure, extremes of body mass or the acutely ill. http://Beatsy/[facility] TULSAnkf eGFR 107 >=60 mL/min/1. 73 m?? [facility] Comment: The eGFR was calculated using the CKD-EPI equation. As with all creatinine based estimates of kidney function, eGFR values calculated with the CKD-EPI equation are not accurate in patients with acute kidney failure, extremes of body mass or the acutely ill. http://Beatsy/DHnkf Blood specimen (specimen) 04/11/2020 1:10 PM EST 04/11/2020 1:15 PM EST Narrative Resulting Agency Comment Spec In Lab Zak Lee MD CHEMISTRY ORDERAB LES [facility] [place] [address] * CRP, acute inflammation (04/11/2020 1:10 PM EST) CRP 3.0 <=4.9 mg/L [facility] Blood specimen (specimen) 04/11/2020 1:10 PM EST 04/11/2020 1:15 PM EST Narrative Resulting Agency Comment Spec In Lab Zak Lee MD CHEMISTRY ORDERAB LES Performing Organization Address [facility]/ZIP Co de Phone Number [facility] [place] [address] * IgG (04/11/2020 1:10 PM EST) IgG 889 700 - 1,600 mg/dL [facility] Comment: Pediatric Reference Intervals obtained from the Caliper Reference Interval project. http://www.[employer].ca/caliperproject/index.html Blood specimen (specimen) 04/11/2020 1:10 PM EST 04/11/2020 1:15 PM EST Narrative Resulting Agency Comment Spec In Lab Zak Lee MD IMMUNOLOGY ORDERA BLES Performing Organization Address [facility] Co de Phone Number [facility] [place] [address] documented in this encounter Visit Diagnoses Diagnosis High risk medication use Encounter for long-term (current) use of other medications Rheumatoid arthritis involving multiple sites with positive rheumatoid factor Other specified diabetes mellitus with other specified complication, unspecified whether terminal press operator insulin use documented in this encounter Care Teams Bridge Construction Inspector Relationship Specialty Start Date End Date Aneta Perez PA [address] [place] [address] PCP - General Family Medicine 10/17/19 documented as of this encounter
--- OUTSIDE RECORDS SUMMARY | 2023-12-11 00:11 | XMS_ITS | Encounter Summary ---
Author Organization [facility] [place] [address] Care Team Providers Care Farm Demonstrator Name Role Phone Aneta Perez Primary Care Provider [phone] Reason for Visit * Auth/Cert Specialty Diagnoses / Procedures Referred By Contac t Referred To Contact Diagnoses tendon injury Procedures PRO TENOLYSIS, FLEX TENDON, PALM/FINGER, EA TENOLYSIS, FLEXOR TENDON, PALM OR FINGER, EACH (WRVU 5.16) Referral ID Status Reason Start Date Expiration Date Visits Re quested Visits Authorized [id number] 1 1 Encounter Details Date Type Department Care Team (Latest Contact Info) Description 03/26/2020 10:38 AM EDT - 03/26/2020 2:46 PM EDT Hospital Encounter [place] [address] Ulises Parry MD [facility] [place] [address] Tendon rupture of wrist, left, initial encounter Discharge Disposition: Home Social History Tobacco Use Types Packs/Day Years Used Date Smoking Tobacco: Every Day Cigarettes Smokeless Tobacco: Never Sex and Gender Information Value Date Recorded Sex Assigned at Not on file Gender Identity Not on file Sexual Orientation Not on file documented as of this encounter Last Filed Vital Signs Vital Sign Reading Time Taken Comments Blood Pressure 136/78 03/26/2020 2:15 PM EDT Pulse 100 03/26/2020 2:15 PM EDT Temperature 36.4 ??C (97.5 ??F) 03/26/2020 1:44 PM ED T Respiratory Rate 16 03/26/2020 2:15 PM EDT Oxygen Saturation 99% 03/26/2020 2:15 PM EDT Inhaled Oxygen Concentration - - [...] If taking narcotics, we recommend taking an lrrg-[id number] stool softener to prevent constipation. Call our [...] about scheduling, please contact our administrative officesat [phone] For clinical questions, please call our nurses at [phone] Both offices are open Thursday thru Thursday 8a - 5p. With emergencies after hours, call the hospital chief operator reformer at [phone] and ask for the Plastic Surgery Resident diamond sawer. FOLLOW UP: Future Appointments and Orders Future Appointments and Orders Future Appointments Provider Department Dept Phone 04/03/2020 11:30 AM Zak Lee MD Rheumatology at [facility] Arrive at: Residential Property Tax Appraiser Area [phone] 04/03/2020 1:00 PM Ulises Parry MD Plastic Surgery at [facility] Arrive at: Residential Property Tax Appraiser Area [phone] 04/03/2020 1:30 PM Tucker Wiggins OT Occupational Therapy at [facility] Arrive at: Residential Property Tax Appraiser [facility] [phone] documented in this encounter Medications at Time of Discharge Medication Sig Dispensed Refills Start Date End Date rituximab (RITUXAN IV) Inject into the vein. albuterol (PROVENTIL) 2.5 mg /3 mL (0.083 %) Solution for Nebulization prn 09/29/2018 amitriptyline (ELAVIL) 100 mg Tablet Take 1 tablet by mouth daily. 05/13/2018 ONETOUCH ULTRA BLUE TEST STRIP Strip as needed. 01/25/2018 CartilixTOUCH ULTRA2 Kit as needed. 01/25/2018 lamoTRIgine (LAMICTAL) [...] patient was questioned regarding travel outside of [facility], fever, cough, SOB or other illness in [...] again, temperature will be taken, patient and caregiver/restaurant delivery driver will be given a mask [...] performed by Ulises Parry MD at [facility] History reviewed. No pertinent [...] file Gets together: Not on file Attends orthodoxy service: Not on file Active member of [...] Molly Ramos MD Plastic Surgery Resident P# [id number] documented in this encounter Miscellaneous Notes * Op Note - Ulises Parry MD - 03/26/2020 1:43 PM EDT [facility] Operative Note Patient Name: Liset Hager : [id number] MR#: [id number] Case Date: 03/26/2020 Surgeon: Surgeon(s) and Role: [...] DIP with good tendon glide. The p atjasmin was aroused from sedation and was unable [...] At this point we proceeded with a zhee-hr-opze middle finger to index finger FDP transfer. Using 3-0 fiberwire, the tendons were secured together with [id number] sutures so that the index FDP was [...] Operative Note Patient Name: Liset Hager : [id number] MR#: [id number] Case Date: 03/26/2020 Surgeon: Surgeon(s) and Role: [...] Center 04/03/2020 11:30 AM Zak Lee MD [facility] RHEUM [facility] 04/03/2020 1:30 PM Tucker Wiggins, OT [facility] Re[facility] OT [facility] documented in this encounter Plan of Treatment [...] Adj Tiss Transfer Head, Fac, Hand <10Sqcm ([id number]) 03/26/2020 12:13 PM EDT Tendon rupture of wrist, left, initial encounter Transplant Forearm/Wrist Tendon ([id number]) 03/26/2020 12:13 PM EDT Tendon rupture of wrist, left, initial encounter Tenolysis, Flex Tendon, Palm/Finger, Ea ([id number]) 03/26/2020 12:13 PM EDT Tendon rupture of [...] 11:45 AM EDT 1,000 mLs 100 mL/hr documented [...] MD) documented in this encounter Care Teams Farm Demonstrator Relationship Specialty Start Date End Date Aneta Perez PA [address] [place] [address] PCP - General Family Medicine 10/17/19 documented as of this encounter
--- OUTSIDE RECORDS SUMMARY | 2023-12-11 00:11 | XMS_ITS | Encounter Summary ---
Author Organization [facility] Address [facility] [place] [address] Care Team Providers Care Inserting Machine Operator Name Role Phone Aneta Perez Primary Care Provider [phone] Reason for Visit * Reason Comments Follow Up Surgery s/p tendon transfer Encounter Details Date Type Department Care Team (Late st Contact Info) Description 01/04/2020 8:30 AM EDT Office [place] [address] Ulises Parry MD [facility] [place] [address] Follow-up exam Social History Tobacco Use Types Packs/Day Years Used Date Smoking Tobacco: Every Day Cigarettes Smokeless Tobacco: Never Sex and Gender Information Value Date Recorded Sex Assigned at Not on file Gender Identity Not on file Sexual Orientation Not on file documented as of this encounter Progress Notes * Ulises Parry MD - 01/04/2020 8:30 AM EDT Plastic Surgery Post Op Note Reason for visit: F/U status post procedure Date of surgery: 12/05/2019 Procedure(s): Left index finger tenolysis. Complications: None reported HPI: Pt returns to clinic for follow up s/p left index tenolysis. She expresses that she is very sore at today's visit. She has been working with OT but states that t has been challenging and painful. She is a little discouraged, she feels that she is currently stuck and has not seen significant improvement She has been taking tylenol, naproxen and or OxyContin for her discomfort. She is wondering about her work status. Her goal is to be able to open her hand and straighten her finger fully. Examination: There were no vitals taken for this visit. Patient is alert, conversant, comfortable, ambulating Incision: CDI, healing well. Scar contracture at volar MP. She is very tender at the scar and with PROM at the index MP and PIP joints. No collection, no erythema, no evidence of cellulitis. With blocking has no active flexion at PIP and she still has significant intrinsic discoordination. Impression: Liset Hager is a 39 y.o. female who was seen today for follow- up after the above procedure. Please see the operative note for details. She continues healing. I expressed the importance of her continuing with OT and really start focus on passive motion. I encourage her to move the finger as much as possible to encourage tendon gliding She does have adhesion but I did reassure her that at this time OT should be able to break the adhesions. I discussed with patient that since her incisions are well healed that she can proceed with working when she is ready. I would like to suggest that she try proceeding with E-stem treatment during her OT treatments. May consider a rotational flap in the future. Plan: Follow up with Dr. Parry in one month Consider E-Stem treatment with - [facility]. Focus on PROM I, Do Esposito, have performed the documentation for this encounter in the presence of and acting as a scribe for Ulises Parry MD. documented in this encounter Plan of Treatment Not on file documented as of this encounter Visit Diagnoses Diagnosis Follow-up exam Unspecified follow-up examination documented in this encounter Care Teams Inserting Machine Operator Relationship Specialty Start Date End Date Aneta Perze PA [address] [place] [address] PCP - General Family Medicine 10/17/19 documented as of this encounter
--- OUTSIDE RECORDS SUMMARY | 2023-12-11 00:11 | XMS_ITS | Encounter Summary ---
Author Organization [facility] [place] [address] Care Team Providers Care Plasterer Spray Gun Name Role Phone Aneta Perez Primary Care Provider [phone] Reason for Visit * Reason Onset Date Comments Prior Authorization 04/20/2020 Encounter Details Date Type Department Care Team (Late st Contact Info) Description 04/20/2020 [place] [id number] Cynthia Partida Prior Authorization Social History Tobacco Use Types Packs/Day Years Used Date Smoking Tobacco: Every Day Cigarettes Smokeless Tobacco: Never Sex and Gender Information Value Date Recorded Sex Assigned at Not on file Gender Identity Not on file Sexual Orientation Not on file documented as of this encounter Miscellaneous Notes * Telephone Encounter - Cynthia Partida - 04/20/2020 9:01 AM EST Medication Prior Authorization Lee Medication name/dose/directions: Rituxan (Karl) Rationale for request: RA Health plan: [place] Medicaid ([facility]) Authorizing signs and displays sales representative name: Haley Sent to health plan on: 04/20/20 Health plan decision: Not required Quantity approved: Authorization number: Start date: End date: documented in this encounter Plan of Treatment Not on file documented as of this encounter Visit Diagnoses Not on filedocumented in this encounter Care Teams Plasterer Spray Gun Relationship Specialty Start Date End Date Aneta Perez PA [address] [place] [id number] PCP - General Family Medicine 10/17/19 documented as of this encounter
--- OUTSIDE RECORDS SUMMARY | 2023-12-11 00:11 | XMS_ITS | Encounter Summary ---
Author Organization [facility] [place] [address] Care Team Providers Care Rock Breaker Name Role Phone Aneta Perez Primary Care Provider [phone] Reason for Visit * Reason Onset Date Comments Questions 05/16/2020 Encounter Details Date Type Department Care Team ([facility] st Contact Info) Description 05/16/2020 [place] [phone] Momo Knight, RN Questions Social History Tobacco Use Types Packs/Day Years Used Date Smoking Tobacco: Every Day Cigarettes Smokeless Tobacco: Never Sex and Gender Information Value Date Recorded Sex Assigned at Not on file Gender Identity Not on file Sexual Orientation Not on file documented as of this encounter Miscellaneous Notes * Telephone Encounter - Momo Knight RN - 05/16/2020 2:25 PM EST Merline from [facility] calls. Patient receives rtx day 1 and day 15. Merline asks if patient to be scheduled 6 months from day 1 or 6 months from day 15? documented in this encounter Plan of Treatment Not on file documented as of this encounter Visit Diagnoses Not on filedocumented in this encounter Care Teams Rock Breaker Relationship Specialty Start Date End Date Antea Perez PA [address] [place] [id number] PCP - General Family Medicine 10/17/19 documented as of this encounter
--- OUTSIDE RECORDS SUMMARY | 2023-12-11 00:11 | XMS_ITS | Encounter Summary ---
Author Organization Formerly [facility] Address [facility] [place] [address] Care Team Providers Care Compliance Field Technician Name Role Phone Aneta Perez Primary Care Provider [phone] Reason for Referral * Occupational Therapy (Routine) - Closed Specialty Diagnoses / Procedures Referred By Roberto palomares Referred To Contact Diagnoses Tendon rupture of wrist, left, initial encounter Ulises Parry MD [facility] [place] [address] Unknown None Referral ID Status Reason Start Date Expiration Date V isits Requested Visits Authorized [id number] Closed Evaluate and Treat 04/04/2020 10/01/2020 12 12 Encounter Details Date Type Department Care Team (Late st Contact Info) Description 04/04/2020 8:45 AM EST Office Visit Plastic Surgery at [address] [address] Ulises Parry MD [facility] [place] [address] Tendon rupture of wrist, left, initial encounter Social History Tobacco Use Types Packs/Day Years Used Date Smoking Tobacco: Every Day Cigarettes Smokeless Tobacco: Never Sex and Gender Information Value Date Recorded Sex Assigned at Not on file Gender Identity Not on file Sexual Orientation Not on file documented as of this encounter Progress Notes * Ulises Parry MD - 04/04/2020 8:45 AM EST Plastic Surgery Post Op Note [...] clinic for her first post operative follow up s/p left FDP tendon transfer from middle to index finger and index lumbricals release. Patient is doing well. This is a coordinated visit with OT. Patient reports that she has been having some discomfort and pain post surgery. Examination: There were no vitals taken for this visit. Patient is alert, conversant, comfortable, ambulating Left upper extremity Incision: CDI, healing well. No collection, no erythema, no evidence of cellulitis. Still in lumbrical + position with stiff PIP PROM, AROM intact to DIP Impression: Liset Hager is a 39 y.o. female who was seen today for follow- up after the above procedure. Please see the operative note for details. Healing as to be expected. No signs or concerns for infection. Discussed with patient that her sutures will need to remain in for another week, I will prescribe a short course of narcotic quantity of 6 pills to help with her post op discomfort. PDMP inquiry performed on 04/04/2020 Plan: Follow up next week for suture removal Letter given to patient with the following restrictions: may return to work, no use of left hand External referral for OT to begin with AROM/PROM with focus on PROM due to her persisting stiffness. IDo, have performed the documentation for this encounter in the presence of and acting as a scribe for Ulises Parry MD. documented in this encounter Plan of Treatment Scheduled Referrals Name Type Priority Associated Diagnoses Order Schedule Referral to Occupational Therapy Outpatient Referral Routine Tendon rupture of wrist, left, initial encounter Ordered: 04/04/2020 documented as of this encounter Visit Diagnoses Diagnosis Tendon rupture of wrist, left, initial encounter documented in this encounter Care Teams Compliance Field Technician Relationship Specialty Start Date End Date Aneta Perez PA [address] [place] [id number] PCP - General Family Medicine 10/17/19 documented as of this encounter
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
--- OUTSIDE RECORDS SUMMARY | 2023-12-11 00:11 | XMS_ITS | Encounter Summary ---
Author Organization [facility] [place] [address] Care Team Providers Care Agile Java Developer Name Role Phone Aneta Perez Primary Care Provider [phone] Encounter Details Date Type Department Care Team (Late st Contact Info) Description 04/11/2020 11:45 AM EST Office Visit Occupational Therapy at [address] [phone] iLss Armstrong, OT [facility] PHYSICAL MEDICINE & [place] [address] Tendon dysfunction Social History Tobacco Use Types Packs/Day Years Used Date Smoking Tobacco: Every Day Cigarettes Smokeless Tobacco: Never Sex and Gender Information Value Date Recorded Sex Assigned at Not on file Gender Identity Not on file Sexual Orientation Not on file documented as of this encounter Progress Notes * Liss Armstrong OT - 04/11/2020 11:45 AM EST OCCUPATIONAL THERAPY TREATMENT NOTE Referral Source: Dr. Sohan Christian MD Follow-up: Seen today for suture removal - recheck in 3 weeks Total Treatment time: 40 Minutes Timed Code Treatment Time: 40 minutes OCCUPATIONAL PROFILE: Liset Hager is a [...] a custom orthosis. Patient presents today alone. 04/11/20: seen today with Dr. Parry for suture removal: she has good healing and is able to tolerate increased passive mobility of her index finger into MCP joint extension and flexion into the palm of her hand. Date of onset of symptoms: chronic Date of surgery: 03/26/20 Pertinent History and/or Co-morbidities: 1. Tendon dysfunction 2. 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 She has not returned to work as an PRIVATE INVESTIGATOR. Global Mental Function: With gross screening of patient???s global mental functions, patient demonstrates orientation to person, place, time, and situation. Patient???s affect/behavior is appropriateand cooperative today. Patient Specific Functional Scale (PSFS) (unable to perform 0/10 - Able to perform without difficulty 10/10) Activity At Evaluation 1.) use of left hand 07/11 2.) driving 10/08 3.) sleeping 10/08 4.) self-care 10/08 Disabilities of the Arm, Shoulder, and Hand [...] your head Mild difficulty 7. Do heavy buncher machine (eg wash morrison, wash floors) Severe difficulty [...] you move your arm freely (eg playing Earneste, Catmoji, etc) Severe difficulty 20. Manage transportation needs [...] the Visual Analog Pain Scale) At Rest: 2/10 With Activity: 2/10- a bit painful with suture removal but overall did very well and tolerated exercises very well today. Treatment Today: Assessment of her hand at 2 weeks s/p surgery of tendon transfer to allow for active flexion and extension of her index finger Wound is fully healed Removal of sutures by and able to begin manual massage to wrist incision Patient seen with Dr. Parry: followed with passive stretching of her digit into MCP extension andflexion into the palm of her hand She does not have active motion of her index yet; initiate local therapy( [facility]) for Passive mobility of her index finger into palmar flexion and facilitate extension to tolerance at her MCP joint PROM MP to -50 of extension and ability to flex to touch her palm Fabricated new volar forearm based resting splint for her index-long fingers in MCP flexion of 45 degrees and leaving her IP's free for active movement She is also released for one-handed duty to work as an PRIVATE INVESTIGATOR but has not returned to work [employer] (92893) 20 min Therex: Strength/Endurance/ROM (99048) 20 min Educated patient in etiology and biomechanics as related to patient's symptoms Referral provided for her to initiate OT locally/ [facility]. Has good relationship with her OT from previous surgery. CLINICAL DECISION MAKING: Liset Hager has a well fitting orthosis post therapy and tolerated her motion very well today. Expect she will have good progress with recovery of her motion . Liset Hager is able to independently verbalize [...] demonstration intherapy. Goal Status: Meets PLAN: RTC [address] Parry (X) Liset Hager participated in the evaluation, collaborated on treatment goals, and agrees to the treatment plan. documented in this encounter Plan of Treatment Not on file documented as of this encounter Visit Diagnoses Diagnosis Tendon dysfunction Unspecified disorder of synovium, tendon, and bursa documented in this encounter Care Teams Agile Java Developer Relationship Specialty Start Date End Date Aneta Perez PA [address] [place] [id number] PCP - General Family Medicine 10/17/19 documented as of this encounter
--- OUTSIDE RECORDS SUMMARY | 2023-12-11 00:11 | XMS_ITS | Encounter Summary ---
[place] [address] Care Team Providers Care Marketing Services Specialist Name Role Phone Aneta Perez Primary Care Provider [phone] Reason for Visit * Auth/Cert Specialty Diagnoses / Procedures Referred By Roberto t Referred To Contact Diagnoses tendon rupture Procedures PRO TRANSPLANT/GRAFT PALM TENDON TRANSFER OR TRANSPLANT TENDON, PALMAR, W/ FREE TENDON GRAFT, EA (WRVU 9.86) Referral ID Status Reason Start Date Expiration Date Visits Re quested Visits Authorized [id number] 1 1 Encounter Details Date Type Department Care Team (Late st Contact Info) Description 12/05/2019 11:12 AM EDT Anesthesia Event [place] [address] Rianna Ramírez DO [facility] [address] Sagar Iqbal MD [facility] [place] [address] Anesthesia Record Procedure Summary Procedure Name Responsible Anesthesiologist Anesthesia Start Time Anesthesia Stop Time TENOLYSIS, FLEXOR TENDON, PALM AND FINGER EACH (WRVU 9.75) (Left: Hand) Rianna Ramírez DO 12/05/19 1112 12/05/19 1239 Events Date Time Event Comment 12/05/2019 0919 1112 Start 1114 AN Verify 1114 An Start Data 1117 An Induction 1118 An Intubation 1119 Anesthesia Ready 1234 an stop data 1238 Recovery or ICU Handoff Rosa ent care was transferred to the destination unit staff after review of the patient's medical history, current anesthetic/surgical status and plan, according to the Provider Handoff Checklist. 1239 Stop Meds Name Total Propofol 200 mg Propofol INF 194.06 mg fentaNYL 100 mcg Midazolam 2 mg IV Lidocaine 60 mg Dexamethasone 8 mg Ondansetron 8 mg Dexmedetomidine 20 mcg Ketorolac 30 mg BUpivacaine 0.25% with Epi 1:200K 10 mL lactated ringers infusion 800 mL * Agents Name O2 Air N2O Sevoflurane (et) * Blood No blood administrations on file. Lines, Drains, and Airways Type Details Placement Removal (RETIRED) Peripheral IV Line - Single Lumen 12/05/19; 0954; median vein (underside of arm), right; 20 gauge; distraction, intradermal injection, tolerated well, appears comfortable; 3; metacarpal vein (top of hand), right; no longer indicated, removed per policy/procedure; 12/05/19; 1310 12/05/19 0954 by Lubna Brody RN 12/05/19 1310 by Hetal Machado RN Supraglottic Mask Ventilation: No t Attempted (0); LMA Type: Unique; LMA Size: 3; Inserted by: HW; Removal Date: 10/01/20; Removal Time: 0812/05/19 1123 by Nelsy Allen, EXTRUDER OPERATOR HELPER 10/01/20 0808 by Kim Rascon RN Incision 12/05/19; 1128; seco nd finger; 01/27/22 (LDA cleanup utility RA#[id number]); 1715 (LDA cleanup utility RA#[id number]) 12/05/19 1128 by Verna Oliver RN 01/27/22 1715 by Heidy Kearns Incision 12/05/19; 1140; wris t; 01/27/22 (LDA cleanup utility RA#[id number]); 1715 (LDA cleanup utility RA#[id number]) 12/05/19 1140 by Verna Oliver RN 01/27/22 1715 by Heidy Kearns documented [...] Postprocedure Evaluation - Rianna Ramírez DO - 12/05/2019 1:09 PM EDT Department of Anesthesiology Post-procedure Note Patient: Liset Hager Procedure Summary Date: 12/05/19 Room / Location: [address] Anesthesia Start: 1112 Anesthesia Stop: 1239 Procedure: TENOLYSIS, FLEXOR TENDON, PALM AND FINGER EACH (WRVU 9.75) (Left Hand) Diagnosis: Tendon rupture of wrist, left, initial encounter (tendon rupture) Surgeon: Ulises Parry MD Responsible Provider: Rianna Ramírez DO Anesthesia Type: general ASA Status: 2 All Anesthesia Providers: Anesthesiologist: Rianna Ramírez DO EXTRUDER OPERATOR HELPER: Nelsy Allen CRNA Vitals Value Taken Time BP 141/66 12/05/2019 12:48 PM Temp Pulse 78 12/05/2019 12:48 PM Resp 17 12/05/2019 12:48 PM SpO2 100 % 12/05/2019 12:48 PM Pain Level 4 12/05/2019 12:48 PM Patient Location: PACU/[facility] Level of Consciousness: Awake and Alert Pain [...] Preprocedure Evaluation - Rianna Ramírez DO - 12/05/2019 7:00 AM EDT Pre-Anesthesia Evaluation for: Liset Hager a 39 y.o. female. Procedure(s): TRANSFER OR TRANSPLANT TENDON, PALMAR, W/ FREE TENDON GRAFT, EA (WRVU 9.86) Patient Active Problem List Diagnosis ??? Tendon dysfunction ??? Rheumatoid arthritis involving multiple sites with positive rheumatoid factor ??? High risk medication use ??? Degenerative joint disease involving multiple joints ??? Cigarette smoker ??? Graves disease ??? Depression ??? Anxiety History reviewed. No pertinent past medical history. History reviewed. No pertinent surgical history. Social History Tobacco Use ??? Smoking status: [...] home medications have been reviewed. Physical Exam: There were no vitals filed for this visit. There is no height or weight on file to calculate BMI. Airway Assessment: Mallampati: II TM distance: >3 FB Neck ROM: full Cardiovascular Assessment: Rhythm: regular Pulmonary Assessment: breath sounds clear to auscultation Dental Assessment: - normal exam Misc Assessment: Patient is wearing No contact(s). IV access: Peripheral line Anesthesia Plan: ASA 2 general, with a(n) intravenous induction 39 Y/o female for Tendon Transfer/Transplant L Index Finger No hx of difficulty w anesthesia Hx sig for Depression/Anxiety, RA, Tob use, Graves Dz BG this AM 137 Denies CP/SOB/Orthopnea/Active DAMON ss/Acute illness Appears and feels well today Plan GA/LMA/EVA/VA and IV maint/p op pacu care and IV pain control as needed w local provided by surgicals service. Antiemetics The patient was informed of [...] risks discussed with patient. Plan discussed with EXTRUDER OPERATOR HELPER. PAT Clinic Note documented in this encounter Plan of Treatment Not on file documented as of this encounter Visit Diagnoses Not on filedocumented in this encounter Administered Medications Inactive Administered Medications - up to 3 most recent administrations Medication Order MAR Action Action Date Dose Rate Site BUpivacaine-EPINEPHrine 0.25 %-1:200,000 injection PRN, Starting on Thu12/05/19 at 1230, Until Thu12/05/19 at 1241, Anesthesia Intra-op, Routine Given 12/05/2019 12:30 PM EDT 10 mLs dexamethasone (Decadron) injection Intravenous, PRN, Starting on Thu12/05/19 at 1120, Until Thu12/05/19 at 1241, Anesthesia Intra-op, Routine Given 12/05/2019 11:20 AM EDT 8 mg dexmedetomidine (PRECEDEX) injection PRN, Starting on Thu12/05/19 at 1125, Until Thu12/05/19 at 1241, Anesthesia Intra-op, Routine Given 12/05/2019 11:46 AM EDT 4 mcg Given 12/05/2019 11:38 AM EDT 8 mcg Given 12/05/2019 11:25 AM EDT 8 mcg fentaNYL 50 mcg/mL multi-dose injection Intravenous, PRN, Starting on Thu12/05/19 at 1125, Until Thu12/05/19 at 1241, Anesthesia Intra-op, Routine Given 12/05/2019 11:46 AM EDT 25 mcg Given 12/05/2019 11:25 AM EDT 75 mcg ketorolac (TORADOL) injection PRN, Starting on Thu12/05/19 at 1212, Until Thu12/05/19 at 1241, Anesthesia Intra-op, Routine Given 12/05/2019 12:12 PM EDT 30 mg lidocaine (PF) (XYLOCAINE) 100 mg/5 mL (2 %) injection Intravenous, PRN, Starting on Thu12/05/19 at 1117, Until Thu12/05/19 at 1241, Anesthesia Intra-op, Routine Given 12/05/2019 11:17 AM EDT 60 mg midazolam (PF) (VERSED) multi-dose injection Intravenous, PRN, Starting on Thu12/05/19 at 1114, Until Thu12/05/19 at 1241, Anesthesia Intra-op, Routine Given 12/05/2019 11:14 AM EDT 2 mg ondansetron (ZOFRAN) injection Intravenous, PRN, Starting on Thu12/05/19 at 1221, Until Thu12/05/19 at 1241, Anesthesia Intra-op, Routine Given 12/05/2019 12:21 PM EDT 8 mg propofol (DIPRIVAN) 10 mg/mL bolus injection (Anesthesia) Intravenous, PRN, Starting on Thu12/05/19 at 1117, Until Thu12/05/19 at 1241, Anesthesia Intra-op Given 12/05/2019 11:17 AM EDT 200 mg propofol (DIPRIVAN) infusion Intravenous, CONTINUOUS PRN, Starting on Thu12/05/19 at 1119, Until Thu12/05/19 at 1241, Anesthesia Intra-op, Routine New Bag 12/05/2019 11:19 AM EDT 50 mcg/kg/min 18.8 mL/hr documented in this encounter Care Teams Marketing Services Specialist Relationship Specialty Start Date End Date Aneta Perez PA [address] [place] [id number] PCP - General Family Medicine 10/17/19 documented as of this encounter
--- OUTSIDE RECORDS SUMMARY | 2023-12-11 00:11 | XMS_ITS | Encounter Summary ---
[place] [address] Care Team Providers Care Connie Scratcher Name Role Phone Aneta Perez Primary Care Provider [phone] Reason for Visit * Reason Onset Date Comments Follow-up 04/16/2020 Encounter Details Date Type Department Care Team (Late st Contact Info) Description 04/16/2020 [place] [id number] Juan Manuel Sapp RN Follow-up Social History Tobacco Use Types Packs/Day Years Used Date Smoking Tobacco: Every Day Cigarettes Smokeless Tobacco: Never Sex and Gender Information Value Date Recorded Sex Assigned at Not on file Gender Identity Not on file Sexual Orientation Not on file documented as of this encounter Miscellaneous Notes * Telephone Encounter - Juan Manuel Sapp RN - 04/16/2020 11:26 AM EST RTC to Liset and MAILBOX IS FULL. I sent her a Hudl message. documented in this encounter Plan of Treatment Not on file documented as of this encounter Visit Diagnoses Not on filedocumented in this encounter Care Teams Connie Scratcher Relationship Specialty Start Date End Date Aneta Perez PA [address] [place] [id number] PCP - General Family Medicine 10/17/19 documented as of this encounter
--- OUTSIDE RECORDS SUMMARY | 2023-12-11 00:11 | XMS_ITS | Encounter Summary ---
Author Organization [facility] [place] [address] Care Team Providers Care Square Cutter Name Role Phone Aneta Perez Primary Care Provider [phone] Encounter Details Date Type Department Care Team (Late st Contact Info) Description 04/11/2020 11:45 AM EST Office Visit Plastic Surgery at [address] [phone] Ulises Parry MD [facility] [place] [address] Surgery follow-up Social History Tobacco Use Types Packs/Day Years Used Date Smoking Tobacco: Every Day Cigarettes Smokeless Tobacco: Never Sex and Gender Information Value Date Recorded Sex Assigned at Not on file Gender Identity Not on file Sexual Orientation Not on file documented as of this encounter Progress Notes * Ulises Parry MD - 04/11/2020 11:45 AM EST Plastic Surgery Post Op Note [...] HPI: Pt returns to clinic for her a post operative follow up s/p left FDP tendon transfer from middle to index finger and index lumbricals release. Primarily here for suture removal and a coordinatedOT visit. She reports some trouble with her brace as it places pressure on he index finger (this isby design) Examination: There were no vitals taken for this visit. Patient is alert, conversant, comfortable, ambulating Left upper extremity Incision: CDI, healing well. Sutures removed No collection, no erythema, no evidence of cellulitis. Still in lumbrical + position with she actively maintains as a maladaptive appter with stiff PIP PROM, No AROM to DIP today although I can feel repair is intact at volar wrist. Impression: Liset Hager is a 39 y.o. female who was seen today for follow- up after the above procedure. Please see the operative note for details. Healing as to be expected. No signs or concerns for infection. Due to her longstanding use of her lumbrical as a finger flexor we are having trouble getting her to use her reconstructed FDP and not overpowering it with her ulnar lateral band as the radial was released. Plan: OT for focus on PIP PROM/AAROM Lumbrical minus splinting Follow up in one month with Dr. Parry. I, Do Esposito, have performed the documentation for this encounter in the presence of and acting as a scribe for Ulises Parry MD. documented in this encounter Plan of Treatment Not on file documented as of this encounter Visit Diagnoses Diagnosis Surgery follow-up Follow-up examination, following unspecified surgery documented in this encounter Care Teams Square Cutter Relationship Specialty Start Date End Date Aneta Perez PA [address] [place] [id number] PCP - General Family Medicine 10/17/19 documented as of this encounter
--- OUTSIDE RECORDS SUMMARY | 2023-12-11 00:11 | XMS_ITS | Encounter Summary ---
Author Organization [facility] Address [facility] [place] [address] Care Team Providers Care Zigzag Elastic Attacher Name Role Phone Aneta Perez Primary Care Provider [phone] Encounter Details Date Type Department Care Team (Late st Contact Info) Description 04/03/2020 11:30 AM EST TH Visit (TeleHealth) [place] [address] Zak Lee MD [facility] [place] [address] High risk medication use; Rheumatoid arthritis involving multiple sites with positive rheumatoid factor; Graves disease; Tendon dysfunction; Other specified diabetes mellitus with other specified complication, unspecified whether rn integrity insulin use Social History Tobacco Use Types Packs/Day Years Used Date Smoking Tobacco: Every Day Cigarettes Smokeless Tobacco: Never Sex and Gender Information Value Date Recorded Sex Assigned at Not on file Gender Identity Not on file Sexual Orientation Not on file documented as of this encounter Progress Notes * Zak Lee MD - 04/03/2020 11:30 AM EST Rheumatology Clinic: Dr. Lee 04/03/2020 [id number] This is a TeleHealth telephone visit for Liset Hager in follow-up of her rheumatoid arthritis. This was a scheduled video visit, but due to technical issues, ended up being a phone visit. She is doing pretty well. But she is getting progressively more achy as the time for her next cycle of Rituxan approaches. In fact, she is due right around now. Her last 2 infusion cycle was back in September. She would like her next round of infusions done in [place] or [facility]. A lot has happened since that last visit. She has been diagnosed with a gastric ulcer by endoscopy up at [facility]. She became very symptomatic. She was on naproxen 500 mg twice a day for her arthritis. She was put on omeprazole and sucralfate by the sheet metal worker maintenance. Her sheet metal worker maintenance has no plan to rescope her unless we plan on putting her back on an anti-inflammatory, according to her. Since this was only diagnosed in January, it is still too early to consider that. Over the messaging system we put her on Tylenol 2 extra strength twice a day, but that does not do much. If she is careful with her diet now, she will not have any upper GI symptoms. She is found on her own that she cannot eat spaghetti sauce or potatoes, etc. The other important news is that she has had [address] Parry in plastic surgery here onher left index finger. This is her fourth total surgery on that finger, having had 2 prior procedures done close to home in [place]. She will be seeing Dr. Parry tomorrow. She says that after thelast procedure, she was able to get some motion in that joint. So hopefully she will have a good outcome there. In terms of the pandemic, she is following the mitigation recommendations. No one she knows has contracted COVID-19. She is not working as she recovers from the surgery. Both she and her do the shopping and they both wear masks. She did have a UTI recently and was on antibiotics. Patient Active Problem List Diagnosis Code ??? Depression F32.9 ??? Anxiety F41.9 ??? Rheumatoid arthritis involving multiple sites with positive rheumatoid factor M05.79 ??? High risk medication use Z79.899 ??? Degenerative joint disease involving multiple joints M15.9 ??? Cigarette smoker F17.210 ??? Graves disease E05.00 ??? Tendon dysfunction M67.90 ??? Tendon rupture of wrist S66.919A Medications 03/26/20 1122 Medication Sig Taking? omeprazole (PriLOSEC) 20 mg Capsule, Delayed Release(E.C.) Take 20 mg by mouth daily. Indications: gastroesophageal reflux disease oxyCODONE (Roxicodone) 5 mg Tablet Take 1 tablet by mouth every 4 hours as needed. FLUoxetine (PROzac) 20 mg Tablet Take 20 mg by mouth daily. atorvastatin (Lipitor) 20 mg Tablet rituximab (RITUXAN [...] mouth 3 times daily. Physical Exam: She sounds well on the phone. She is in good spirits. Assessment: We had a long discussion about her situation but the bottom line is that she needs her Rituxan. She would like to get these infusions up in either [facility] or [place]. We will try and arrange that for her. In terms of the ulcer, she is going to continue on omeprazole and sucralfate. She can continue to take the Tylenol, although that does not seem to be doing much. I told her somewhere down the road we might try her on Celebrex, the most GI-safe NSAID. We will also have her check labs close to home. Most the pain she is having joint forbes is in the hands and a significant portion of that is postop pain index finger. She will be seeing Dr. Parry tomorrow and he may want to prescribe meds. Of course that is. We will have her try Voltaren gel on her hands for her arthritic pain. Finally, she is no longer getting any steroids with her Rituxan infusions because that really bumped her sugars. Despite holding the steroid pretreatment, she continues to tolerate the infusions well, thankfully. I will see her in follow-up in 6 months. Total phone time: 17 min, 31 sec. Total visit time: 25 min. Visit level: 55019. documented in this encounter Plan of Treatment Not on file documented as of this encounter Results * (ABNORMAL) Hemoglobin A1c (04/11/2020 1:10 PM EST) Hemoglobin A1C 7.5(H) 4.3 - 5.6 % [facility] Comment: Reference Range: 4.3 - [...] Mellitus, Diabetes Care 2013; 36: Suppl. 1, S67-12 Est Avg Gluc 168 mg/dL [facility] Comment: eAG equivalents for HbA1c [...] into estimated average glucose values. ??Diabetes Care 2008:31(8):8534-9405. Blood specimen (specimen) 04/11/2020 1:10 PM EST 04/11/2020 1:15 PM EST Narrative Resulting Agency Comment Spec In Lab Zak Lee MD CHEMISTRY ORDERAB LES Performing Organization Address [facility] Co de Phone Number [facility] [place] [address] * IgG (04/11/2020 1:10 PM EST) IgG 889 700 - 1,600 mg/dL [facility] Comment: Pediatric Reference Intervals obtained from the Caliper Reference Interval project. http://www.[employer].ca/caliperproject/index.html Blood specimen (specimen) 04/11/2020 1:10 PM EST 04/11/2020 1:15 PM EST Narrative Resulting Agency Comment Spec In Lab Zak Lee MD IMMUNOLOGY ORDERA BLES Performing Organization Address [facility] Co de Phone Number [facility] [place] [address] * CRP, acute inflammation (04/11/2020 1:10 PM EST) CRP 3.0 <=4.9 mg/L [facility] Blood specimen (specimen) 04/11/2020 1:10 PM EST 04/11/2020 1:15 PM EST Narrative Resulting Agency Comment Spec In Lab Zak Lee MD CHEMISTRY ORDERAB LES Performing Organization Address [facility] Co de Phone Number [facility] [place] [address] * (ABNORMAL) Sedimentation rate (04/11/2020 1:10 PM EST) Sed Rate 55(H) 2 - 37 mm/hr [facility] Comment: Effective May 11, 2019 new capillary photometric technology has resulted in a change in reference ranges. It is recommended that each ESR result be reviewed with its own age appropriate reference range. Blood specimen (specimen) 04/11/2020 1:10 PM EST 04/11/2020 1:15 PM EST Narrative Resulting Agency Comment Spec In Lab Zak Lee MD HEMATOLOGY ORDERA BLES [facility] [place] [address] * (ABNORMAL) Comprehensive metabolic panel (non-fasting) (04/11/2020 1:10 PM EST) Glucose Lvl 312(H) 65 - 199 mg/dL [facility] Comment:Diabetes: >=200 mg/d L plus symptoms BUN 10 8 - 18 mg/dL [facility] Creatinine 0.81 0.70 - 1.20 mg/dL [facility] Sodium 136 135 - 145 mmol/L [facility] Potassium 3.9 3.5 - 5.0 mmol/L [facility] Comment: Please note: ??Patients with WBC >100,000 may have falsely elevated Potassium levels. ??For accurate Potassium quantification in these patients send serum separator tube (gold top) for subsequent determinations. ??Contact the Clinical Chemistry Laboratory if there are any questions. Chloride 99 98 - 107 mmol/L [facility] CO2 21(L) 22 - 31 mmol/L [facility] Anion Gap 16(H) 5 - 15 mmol/L [facility] Calcium 9.7 8.5 - 10.5 mg/dL [facility] Total Protein 8.1(H) 6.1 - 8.0 gm/dL [facility] Albumin 4.6 3.2 - 5.2 gm/dL [facility] AST 12 0 - 30 unit/L [facility] ALT 24 0 - 30 unit/L [facility] Alk Phos 148(H) 35 - 105 unit/L [facility] Total Bilirubin 0.2 0.2 - 1.3 mg/dL [facility] Estimated GFR 92 >=60 mL/min/1. 73 m?? [facility] Comment: The eGFR was calculated using the CKD-EPI equation. As with all creatinine based estimates of kidney function, eGFR values calculated with the CKD-EPI equation are not accurate in patients with acute kidney failure, extremes of body mass or the acutely ill. [email or web address]/[email or web address] eGFR 107 >=60 mL/min/1. 73 m?? [facility] Comment: The eGFR was calculated using the CKD-EPI equation. As with all creatinine based estimates of kidney function, eGFR values calculated with the CKD-EPI equation are not accurate in patients with acute kidney failure, extremes of body mass or the acutely ill. [email or web address]://[email or web address] Blood specimen (specimen) 04/11/2020 1:10 PM EST 04/11/2020 1:15 PM EST Narrative Resulting Agency Comment Spec In Lab Zak Lee MD CHEMISTRY ORDERAB LES Performing Organization Address City/State/[facility] Co de Phone Number [facility] [place] [address] documented in this encounter Visit Diagnoses Diagnosis High risk medication use Encounter for long-term (current) use of other medications Rheumatoid arthritis involving multiple sites with positive rheumatoid factor Graves disease Toxic diffuse goiter without mention of thyrotoxic crisis or storm Tendon dysfunction Unspecified disorder of synovium, tendon, and bursa Other specified diabetes mellitus with other specified complication, unspecified whether residential insulin use documented in this encounter Care Teams Zigzag Elastic Attacher Relationship Specialty Start Date End Date Aneta Perez PA [address] [place] [id number] PCP - General Family Medicine 10/17/19 documented as of this encounter
--- OUTSIDE RECORDS SUMMARY | 2023-12-11 00:11 | XMS_ITS | Encounter Summary ---
Author Organization [facility] [place] [address] Care Team Providers Care Computational Biologist Name Role Phone Aneta Perez Primary Care Provider [phone] Reason for Visit * High Dollar Medication (Routine) - Closed Specialty Diagnoses / Procedures Referred By Contac t Referred To Contact Med Infusion Diagnoses Rheumatoid arthritis involving multiple sites with positive rheumatoid factor Zak Lee MD [facility] [place] [address] [facility] Med Infusion [address] [place] [phone] Referral ID Status Reason Start Date Expiration Date V isits Requested Visits Authorized [id number] Closed Consult, Test & Treat 10/03/2019 10/01/2020 2 2 Encounter Details Date Type Department Care Team (Latest Contact Info) Description 10/17/2019 10:28 AM EDT - 10/17/2019 11:59 PM EDT Hospital [place] [address] Rheumatoid arthritis involving multiple sites with positive rheumatoid factor Discharge Disposition: Home Social History Tobacco Use Types Packs/Day Years Used Date Smoking Tobacco: Every Day Cigarettes Smokeless Tobacco: Never Sex and Gender Information Value Date Recorded Sex Assigned at Not on file Gender Identity Not on file Sexual Orientation Not on file documented as of this encounter Last Filed Vital Signs Vital Sign Reading Time Taken Comments Blood Pressure 113/67 10/17/2019 10:33 AM EDT Pulse 108 10/17/2019 10:33 AM EDT Temperature 36.2 ??C (97.1 ??F) 10/17/2019 10:33 AM E DT Respiratory Rate - - Oxygen Saturation 99% 10/17/2019 10:33 AM EDT Inhaled Oxygen Concentration - - Weight - - Height - - Body Mass Index - - documented in this encounter Medications at Time of Discharge Medication Sig Dispensed Refills Start Date End Date rituximab (RITUXAN IV) Inject into the vein. albuterol (PROVENTIL) 2.5 mg /3 mL (0.083 %) Solution for Nebulization prn 09/29/2018 amitriptyline (ELAVIL) 100 mg Tablet Take 1 tablet by mouth daily. 05/13/2018 [employer] ULTRA BLUE TEST STRIP Strip as needed. 01/25/2018 [employer] ULTRA2 Kit as needed. 01/25/2018 lamoTRIgine (LAMICTAL) [...] of this encounter Progress Notes * Do Barriga RN - 10/17/2019 11:04 AM EDT INFUSION THERAPY ADMINISTRATION NOTES DIAGNOSIS: The encounter diagnosis was Rheumatoid arthritis involving multiple sites with positive rheumatoid factor. REASON FOR VISIT: Rituxan day # 15 SUBJECTIVE: Offers no complaints. OBJECTIVE: Last dose received on 10/03/2019. Liset Mcmillan states that she always gets an upset stomach after her infusions. Dr. Lee contacted and an order for Pepcid was given. Liset Mcmillan will communicate with us at her next infusion as to whether this was effective or not. VITALS: BP 113/67 (BP Location (NBP): Left arm, Patient Position: Sitting, BP Cuff Sizes: Adult (25-34 cm)) Pulse (!) 108 Temp 36.2 ??C (97.1 ??F) (Temporal) SpO2 99% IF PAIN >5, INTERVENTION AND EFFECTIVENESS: na IV ACCESS: Peripheral IV Line - Single Lumen 10/17/19 1045 median vein (underside of arm), right 24 gauge;3/4 in length (Active) Indication/Daily Review of Necessity medication therapy continuous 10/17/2019 10:45 AM Site Preparation/Maintenance site cleansed: 70% alcohol;dressing: transparent semipermeable applied10/17/2019 10:45 AM Securement sterile tape strips, secured with 10/17/2019 10:45 AM Patency/Maintenance flushed without difficulty;blood return, able to obtain 10/17/2019 10:45 AM Infiltration 0-->no symptoms 10/17/2019 10:45 AM HYDRATION: N/A ANTIEMETICS/PREMEDS, Medrol 16 mg PO @ declined (patient is diabetic and it negatively impacts her blood glucose) Benadryl 25 mg PO @ given, see MAR Pepcid 20 mg IV @ given, see JERROD Patient identification and orders checked against actual dose given at bedside by Do Barriga RN TREATMENT Rituxan 1000 mg IV Administration times: See JUL 31 day dosing schedule used. REACTIONS None. ASSESSMENT: Tolerated infusion well. PLAN: Return to clinic as ordered by your provider. documented in this encounter Plan of Treatment Not on file documented as of this encounter Visit Diagnoses Diagnosis Rheumatoid arthritis involving multiple sites with positive rheumatoid factor documented in this encounter Administered Medications Inactive Administered Medications - up to 3 most recent administrations Medication Order MAR Action Action Date Dose Rate Site diphenhydrAMINE (Benadryl) capsule 25 mg 25 mg, Oral, ONCE, 1 dose, On Thu10/17/19 at 1045, SUBSEQUENT INFUSION Upon arrival prior to rituximab, Outpatient Transfusion, Routine Given 10/17/2019 10:45 AM EDT 25 mg famotidine (PEPCID) injection 20 mg 20 mg, Intravenous, EVERY 12 HOURS SCHEDULED (2 times per day), First dose on Thu10/17/19 at 1115, Until Discontinued Given 10/17/2019 11:00 AM EDT 20 mg riTUXimab (RITUXAN) 1,000 mg in sodium chloride 0.9% 500 mL infusion 1,000 mg, Intravenous, ONCE, 1 dose, On Thu10/17/19 at 1045, SUBSEQUENT INFUSION Administer intravenously at an initial rate of 50 mg/hour. If no hypersensitivity or infusion-related events occur, increase infusion rate in 50 mg/hour increments every 30 minutes, to a maximum of 400 mg/hour. If hypersensitivity or an infusion-related event develops, the infusion should be temporarily slowed or interrupted. Upon improvement of the patient's symptoms, the infusion can be continued at one-half the previous rate., Outpatient Transfusion New Bag 10/17/2019 11:10 AM EDT 1,000 mg documented in this encounter Care Teams Computational Biologist Relationship Specialty Start Date End Date Aneta Perez PA [address] [place] [id number] PCP - General Family Medicine 10/17/19 documented as of this encounter
--- OUTSIDE RECORDS SUMMARY | 2023-12-11 00:12 | XMS_ITS | Encounter Summary ---
Author Organization [facility] Address [address] [place] [address] Care Team Providers Care Servicer Coin Machines Name Role Phone Aneta Perez Primary Care Provider [phone] Encounter Details Date Type Department Care Team (Late st Contact Info) Description 07/31/2021 Lab Requisition [facility] Pathology & Laboratory Medicine - [facility] [address] [place] [address] Outr Resulting Lab, Provider Social History Tobacco Use Types Packs/Day Years Used Date Smoking Tobacco: Never Assessed Interpersonal Safety Answer Date Record ed Physically Hurt Never 01/01/2020 Verbally Threaten Not on file 01/01/2020 Sex and Gender Information Value Date Recorded Sex Assigned at Not on file Gender Identity Not on file Sexual Orientation Not on file documented as of this encounter Plan of Treatment Not on file documented as of this encounter Procedures Procedure Name Priority Date/Time Associated Diagnosis Comments HEPATITIS C AB W REFLEX TO HCV RNA BY PCR Routine 07/31/2021 11:50 EST documented in this encounter Results * HEPATITIS C AB W REFLEX TO HCV RNA BY PCR (07/31/2021 11:50 EST) Hep C Antibody Negative Negative 08/01/2021 10:07 EST [facility] Blood VENOUS BLOOD / Unknown 07/31/2021 11:50 EST 07/31/2021 21:30 EST Provider Outr Resulting Lab CHEMISTRY & BLOOD GAS ORDERABLES Performing Organization Address [facility]/State/ZIP Co de Phone Number [facility] [address] [place] [address] documented in this encounter Visit Diagnoses Not on filedocumented in this encounter Care Teams Servicer Coin Machines Relationship Specialty Start Date End Date Aneta Perez PA [address] [place] [id number] PCP - General 11/12/18 documented as of this encounter
--- OUTSIDE RECORDS SUMMARY | 2023-12-11 00:12 | XMS_ITS | Encounter Summary ---
Author Organization [facility] Address [address] [place] [address] Care Team Providers Care J2Ee Architect Name Role Phone Aneta Perez Primary Care Provider [phone] Encounter Details Date Type Department Care Team (Late st Contact Info) Description 12/26/2022 Lab Requisition [facility] Pathology & Laboratory Medicine - [facility] [address] [place] [address] Outr Resulting Lab, Provider Social History Tobacco [...] Procedure Name Priority Date/Time Associated Diagnosis Comments IGG Routine 12/26/2022 7:35 EDT documented in this encounter Results * IGG (12/26/2022 7:35 EDT) IgG 734 610 - 1,616 mg/dL 12/29/2022 10:03 EDT [facility] Blood VENOUS BLOOD / Unknown 12/26/2022 7:35 EDT 12/26/2022 17:36 EDT Provider Outr Resulting Lab CHEMISTRY & BLOOD GAS ORDERABLES [facility] [address] [place] [address] documented in this encounter Visit Diagnoses Not on filedocumented in this encounter Care Teams J2Ee Architect Relationship Specialty Start Date End Date Aneta Perez PA [address] [place] [id number] PCP - General 11/12/18 documented as of this encounter
--- OUTSIDE RECORDS SUMMARY | 2023-12-11 00:12 | XMS_ITS | Encounter Summary ---
Author Organization [facility] [place] [id number] Care Team Providers Care Apprentice Painter Brush Name Role Phone Yanique Mandujano MARIAH Primary Care Provider [phone] Reason for Visit * Reason Comments IV Medication * High Dollar Medication (Routine) - Closed Specialty Diagnoses / Procedures Referred By Contac t Referred To Contact Med Infusion Diagnoses Rheumatoid arthritis involving multiple sites with positive rheumatoid factor Procedures TC RITUXIMAB, 10MG INJECTION Zak Lee MD [facility] [place] [address] [facility] Med Infusion [address] [place] [phone] Referral ID Status Reason Start Date Expiration Date V isits Requested Visits Authorized [id number] Closed Consult, Test & Treat 06/02/2018 06/02/2019 2 2 Encounter Details Date Type Department Care Team (Latest Contact Info) Description 07/01/2018 8:17 AM EST - 07/01/2018 11:59 PM EST Hospital Encounter [place] [address] Rheumatoid arthritis involving multiple sites [...] Sign Reading Time Taken Comments Blood Pressure 120/65 07/01/2018 8:33 AM EST Pulse 97 07/01/2018 8:33 AM EST Temperature 36.8 ??C (98.2 ??F) 07/01/2018 8:33 AM ES T Respiratory Rate 20 07/01/2018 8:33 AM EST Oxygen Saturation 100% 07/01/2018 8:33 AM EST Inhaled Oxygen Concentration - - Weight - - Height - - Body Mass Index - - documented in this encounter Medications at Time of Discharge Medication Sig Dispensed Refills Start Date End Date amitriptyline (ELAVIL) 100 mg Tablet Take 1 tablet by mouth daily. 05/13/2018 [employer] ULTRA BLUE TEST STRIP Strip as needed. 01/25/2018 [employer] ULTRA2 Kit as needed. 01/25/2018 lamoTRIgine (LAMICTAL) 100 mg Tablet Take 200 mg by mouth 2 times daily. In am 04/28/2018 lamoTRIgine (LAMICTAL) 25 mg Tablet Take 50 mg by mouth every evening. 05/13/2018 metFORMIN (GLUCOPHAGE) 500 mg Tablet Take 500 mg by mouth 2 times daily (with meals). clonazePAM (KLONOPIN) 0.125 mg Tablet, Rapid Dissolve Take 1 tablet by mouth daily. 05/04/2018 06/25/2022 lovastatin (MEVACOR) 10 mg Tablet Take 1 tablet by mouth daily. 04/24/2018 03/26/2020 valsartan (DIOVAN) 80 mg Tablet Take 1 tablet by mouth daily. 04/28/2018 10/05/2019 cloNIDine (CATAPRES) 0.1 mg Tablet Take 1 tablet by mouth daily. 04/13/2018 06/25/2022 cholecalciferol, Vitamin D3, 50 mcg (2,000 unit) Capsule Take 2,000 Units by mouth daily. 07/22/2022 magnesium 250 mg Tablet Take 250 mg by mouth daily. 10/05/2019 Adalimumab 40 mg/0.8 mL Pen Injector Kit Inject subcutaneously every 14 days. 10/05/2019 cloNIDine (CATAPRES) 0.2 mg tablet Take 0.2 mg by mouth 3 times daily. 06/25/2022 documented as of this encounter Progress Notes * Parish March RN - 07/01/2018 8:51 AM EST INFUSION THERAPY ADMINISTRATION NOTES DIAGNOSIS: 1. Rheumatoid arthritis involving multiple sites with positive rheumatoid factor REASON FOR VISIT: Rituxan day # 15 SUBJECTIVE: Offers no complaints. OBJECTIVE: Last dose received on 06/16/18 VITALS: BP 120/65 (Patient Position: Sitting) Pulse 97 Temp 36.8 ??C (98.2 ??F) (Oral) Resp 20 [id number]% IF PAIN >5, INTERVENTION AND EFFECTIVENESS: na IV ACCESS: Peripheral IV Line - Single Lumen 07/01/18 0840 median vein (underside of arm), left 24 gauge;3/4 in length (Active) Indication/Daily Review of Necessity medication therapy intermittent 07/01/2018 8:47 AM Site Preparation/Maintenance site cleansed: chlorhexidine solution;dressing: transparent semipermeable applied 07/01/2018 8:47 AM Patency/Maintenance flushed without difficulty;blood return, able to obtain 07/01/2018 8:47 AM Phlebitis 0-->no symptoms 07/01/2018 8:47 AM Infiltration 0-->no symptoms 07/01/2018 8:47 AM HYDRATION: N/A ANTIEMETICS/PREMEDS, Methylprednisolone 100 mg IV @ See MAR Benadryl 25 mg PO See MAR Patient identification and orders checked against actual dose given at bedside by Parish March RN TREATMENT Rituxan 1000 mg IV Administration times: See MAR second day dosing schedule used. REACTIONS None. ASSESSMENT: Tolerated infusion well. PLAN: Return to clinic on 12/14/18. documented in this encounter Plan of Treatment Not on file documented as of this encounter Visit Diagnoses Diagnosis Rheumatoid arthritis involving multiple sites with positive rheumatoid factor documented in this encounter Administered Medications Inactive Administered Medications - up to 3 most recent administrations Medication Order MAR Action Action Date Dose Rate Site diphenhydrAMINE (BENADRYL) capsule 25 mg 25 mg, Oral, ONCE, 1 dose, On Vivian 07/01/18 at 0845, SUBSEQUENT INFUSION Upon arrival prior to rituximab, Outpatient Transfusion, Routine Given 07/01/2018 8:30 AM EST 25 mg methylPREDNISolone sodium succinate (PF) (SOLU-Medrol) injection 100 mg 100 mg, Intravenous, ONCE, 1 dose, On Vivian 07/01/18 at 0845, SUBSEQUENT INFUSION Upon arrival prior to rituximab., Outpatient Transfusion Given 07/01/2018 8:40 AM EST 100 mg riTUXimab (RITUXAN) 1,000 mg in sodium chloride 0.9% 500 mL infusion 1,000 mg, Intravenous, ONCE, 1 dose, On Vivian 07/01/18 at 0845, SUBSEQUENT INFUSION Administer intravenously at an initial [...] at one-half the previous rate., Outpatient Transfusion Restarted 07/01/2018 11:45 AM EST 1,000 mg New Bag 07/01/2018 9:22 AM EST 1,000 mg documented in this encounter Care Teams Apprentice Painter Brush Relationship Specialty Start Date End Date Yanique Mandujano APRN [address] [place] [phone] PCP - General 04/23/10 10/16/19 documented as of this encounter
--- OUTSIDE RECORDS SUMMARY | 2023-12-11 00:12 | XMS_ITS | Encounter Summary ---
Author Organization [facility] Address [address] [place] [address] Care Team Providers Care Youth Liaison Officer Name Role Phone Aneta Perez Primary Care Provider [phone] Encounter Details Date Type Department Care Team (Late st Contact Info) Description 07/18/2023 Lab Requisition [facility] Pathology & Laboratory Medicine - [facility] [address] [place] [address] Outr Resulting Lab, Provider Social History Tobacco [...] Procedure Name Priority Date/Time Associated Diagnosis Comments CHLAMYDIA/N. GONORRHOEAE AMPLIFIED NUCLEIC ACID Routine 07/17/2023 16:20 EST documented in this encounter Results * CHLAMYDIA/N. GONORRHOEAE AMPLIFIED RNA (07/17/2023 16:20 EST) Neisseria gonorrhoeae Result Negative Negative 07/19/2023 14:21 EST [facility] Chlamydia trachomatis Result Negative Negative 07/19/2023 14:21 EST [facility] Swab VAGINAL STRUCTURE / Unknown 07/17/2023 16:20 EST 07/18/2023 21:32 EST Provider Outr Resulting Lab MICROBIOLOGY - GENERAL ORDERABLES [facility] [address] [place] [address] documented in this encounter Visit Diagnoses Not on filedocumented in this encounter Care Teams Youth Liaison Officer Relationship Specialty Start Date End Date Aneta Perez PA [address] [place], [place] [id number] PCP - General 11/12/18 documented as of this encounter
--- OUTSIDE RECORDS SUMMARY | 2023-12-11 00:12 | XMS_ITS | Encounter Summary ---
Author Organization [facility] [place] [address] Care Team Providers Care Claims Support Specialist Name Role Phone Yanique Mandujano APRN Primary Care Provider [phone] Encounter Details Date Type Department Care Team (Late st Contact Info) Description 12/08/2018 Ancillary Procedure [place] [address] Yanique Mandujano APRN [address] [place] [phone] Social History Tobacco Use Types Packs/Day Years [...] Diagnosis Comments FILM LIBRARY STORAGE ONLY DX HAND Routine 12/08/2018 12:00 AM EDT documented in this encounter Results * Film Library- Storage Only DX Hand (12/08/2018 12:00 AM EDT) Narrative [facility] - 10/05/2019 2:40 PM EDT This exam is auto-finalizing. It's purpose is for storage only. Yanique Mandujano APRN IMG FILM LIBRARY O RDERABLES [place], [place] documented in this encounter Visit Diagnoses Not on filedocumented in this encounter Care Teams Claims Support Specialist Relationship Specialty Start Date End Date Yanique Mandujano, ECOMMER[employer] MANAGER [address] [place] [address] PCP - General 04/23/10 10/16/19 documented as of this encounter
--- OUTSIDE RECORDS SUMMARY | 2023-12-11 00:12 | XMS_ITS | Encounter Summary ---
Author Organization [facility] Address [facility] [place] [address] Care Team Providers Care Print And Pattern Designer Name Role Phone Yanique Mandujano APRN Primary Care Provider [phone] Reason for Visit * Reason Comments IV Medication * High Dollar Medication (Routine) - Specialty Diagnoses / Procedures Referred By Contac t Referred To Contact Med Infusion Diagnoses Rheumatoid arthritis involving multiple sites with positive rheumatoid factor Procedures TC RITUXIMAB, 10MG INJECTION RITUXAN Zak Lee MD [facility] DR [place] [address] [facility] Med Infusion [address] [place] [phone] Referral ID Status Reason Start Date Expiration Date V isits Requested Visits Authorized [id number] Consult, Test & Treat 12/08/2018 12/30/2018 2 2 Encounter Details Date Type Department Care Team (Latest Contact Info) Description 12/29/2018 7:59 AM EDT - 12/29/2018 11:59 PM EDT Hospital Encounter [place] [address] Rheumatoid arthritis, involving unspecified site, unspecified rheumatoid factor presence Discharge Disposition: Home Social History Tobacco Use Types Packs/Day Years Used Date Smoking Tobacco: Every Day Cigarettes Smokeless Tobacco: Never Sex and Gender Information Value Date Recorded Sex Assigned at Not on file Gender Identity Not on file Sexual Orientation Not on file documented as of this encounter Last Filed Vital Signs Vital Sign Reading Time Taken Comments Blood Pressure 118/74 12/29/2018 8:44 AM EDT Pulse 58 12/29/2018 8:44 AM EDT Temperature 36.6 ??C (97.9 ??F) 12/29/2018 8:44 AM ED T Respiratory Rate 18 12/29/2018 8:44 AM EDT Oxygen Saturation 98% 12/29/2018 8:44 AM EDT Inhaled Oxygen Concentration - - Weight - - Height - - Body Mass Index - - documented in this encounter Medications at Time of Discharge Medication Sig Dispensed Refills Start Date End Date albuterol (PROVENTIL) 2.5 mg /3 mL (0.083 %) Solution for Nebulization prn 09/29/2018 amitriptyline (ELAVIL) 100 mg Tablet Take 1 tablet by mouth daily. 05/13/2018 [employer] ULTRA BLUE TEST STRIP Strip as needed. 01/25/2018 [employer] ULTRA2 Kit as needed. 01/25/2018 lamoTRIgine (LAMICTAL) 100 mg Tablet Take 200 mg by mouth 2 times daily. In am 04/28/2018 lamoTRIgine (LAMICTAL) 25 mg Tablet Take 50 mg by mouth every evening. 05/13/2018 metFORMIN (GLUCOPHAGE) 500 mg Tablet Take 500 mg by mouth 2 times daily (with meals). oxyCODONE-acetaminophe n (PERCOCET) 5-325 mg Tablet as needed. 11/29/2018 10/05/2019 clonazePAM (KLONOPIN) 0.5 mg Tablet Take 1/2 [...] as of this encounter Progress Notes * Simona Frey RN - 12/29/2018 8:44 AM EDT INFUSION THERAPY ADMINISTRATION NOTES DIAGNOSIS: 1. Rheumatoid arthritis, involving unspecified site, unspecified rheumatoid factor presence REASON FOR VISIT: Rituxan day # 15 SUBJECTIVE: Offers no complaints. OBJECTIVE: Last dose received on 12/14/18 VITALS: There were no vitals taken for this visit. IF PAIN >5, INTERVENTION AND EFFECTIVENESS: na IV ACCESS: Peripheral IV Line - Single Lumen 12/29/18 0828 cephalic vein (lateral side of arm), right 24 gauge;3/4 in length (Active) Indication/Daily Review of Necessity medication therapy intermittent 12/29/2018 8:42 AM Site Preparation/Maintenance site cleansed: chlorhexidine solution;dressing: dry and intact 12/29/2018 8:42 AM Patency/Maintenance flushed without difficulty;blood return, able to obtain 12/29/2018 8:42 AM Phlebitis 0-->no symptoms 12/29/2018 8:42 AM Infiltration 0-->no symptoms 12/29/2018 8:42 AM HYDRATION: N/A ANTIEMETICS/PREMEDS, Benadryl 25 mg PO. See MAR Patient identification and orders checked against actual dose given at bedside by [facility] MONSIVA[facility] TREATMENT Rituxan 1000 mg IV Administration times: See JUL 31 day dosing schedule used. REACTIONS None. ASSESSMENT: Tolerated infusion well. PLAN: Return to clinic as directed. documented in this encounter Plan of Treatment Not on file documented as of this encounter Visit Diagnoses Diagnosis Rheumatoid arthritis, involving unspecified site, unspecified rheumatoid factor presence documented in this encounter Administered Medications Inactive Administered Medications - up to 3 most recent administrations Medication Order MAR Action Action Date Dose Rate Site diphenhydrAMINE (BENADRYL) capsule 25 mg 25 mg, Oral, ONCE, 1 dose, On Thu12/29/18 at 0830, SUBSEQUENT INFUSION Upon arrival prior to rituximab, Outpatient Transfusion, Routine Given 12/29/2018 8:15 AM EDT 25 mg riTUXimab (RITUXAN) 1,000 mg in sodium chloride 0.9% 500 mL infusion 1,000 mg, Intravenous, ONCE, 1 dose, On Thu12/29/18 at 0830, SUBSEQUENT INFUSION Administer intravenously at an initial [...] the previous rate., Outpatient Transfusion New Bag 12/29/2018 8:37 AM EDT 1,000 mg documented in this encounter Care Teams Print And Pattern Designer Relationship Specialty Start Date End Date Yanique Mandujano APRN [address] [place] [phone] PCP - General 04/23/10 10/16/19 documented as of this encounter
--- OUTSIDE RECORDS SUMMARY | 2023-12-11 00:12 | XMS_ITS | Encounter Summary ---
Author Organization [facility] [place] [address] Care Team Providers Care Assorter Laundry Name Role Phone Yanique Mandujano APRN Primary Care Provider [phone] Encounter Details Date Type Department Care Team (Late st Contact Info) Description 07/15/2016 Telephone [place] [phone] Shruthi Mai MD [facility] DR [place] [address] Social History Tobacco Use Types Packs/Day Years Used Date Smoking Tobacco: Every Day Cigarettes Smokeless Tobacco: Never Sex and Gender Information Value Date Recorded Sex Assigned at Not on file Gender Identity Not on file Sexual Orientation Not on file documented as of this encounter Miscellaneous Notes * Telephone Encounter - Shruthi Mai MD - 07/15/2016 11:16 AM EST Unable to contact patient at numbers provided documented in this encounter Plan of Treatment Not on file documented as of this encounter Visit Diagnoses Not on filedocumented in this encounter Care Teams Assorter Laundry Relationship Specialty Start Date End Date Yanique Mandujano APRN [address] [place] [phone] PCP - General 04/23/10 10/16/19 documented as of this encounter
--- OUTSIDE RECORDS SUMMARY | 2023-12-11 00:12 | XMS_ITS | Encounter Summary ---
[place] [address] Care Team Providers Care Auto Parts Delivery Driver Name Role Phone Yanique Mandujano APRN Primary Care Provider [phone]- [phone] Encounter Details Date Type Department Care Team (Late st Contact Info) Description 09/07/2018 Ancillary Procedure [place] [address] Yanique Mandujano APRN [address] [place] [phone] Social History Tobacco Use Types Packs/Day Years [...] Associated Diagnosis Comments FILM LIBRARY STORAGE ONLY MR WRIST Routine 09/07/2018 12:00 AM EDT documented in this encounter Results * Film Library- Storage Only MR Wrist (09/07/2018 12:00 AM EDT) Narrative [facility] - 10/05/2019 2:41 PM EDT This exam is auto-finalizing. It's purpose is for storage only. Yanique Mandujano APRN IMG FILM LIBRARY O RDERABLES [place], [place] documented in this encounter Visit Diagnoses Not on filedocumented in this encounter Care Teams Auto Parts Delivery Driver Relationship Specialty Start Date End Date Yanique Mandujano, TAXI TRUCK DRIVER [address] [place] [address] PCP - General 04/23/10 10/16/19 documented as of this encounter
--- OUTSIDE RECORDS SUMMARY | 2023-12-11 00:12 | XMS_ITS | Encounter Summary ---
Author Organization [facility] Address [facility] [place] [address] Care Team Providers Care Academic Intern Name Role Phone Yanique Mandujano AMRIAH Primary Care Provider [phone]- [phone] Reason for Referral * High Dollar Medication (Routine) - Closed Specialty Diagnoses / Procedures Referred By Contac t Referred To Contact Med Infusion Diagnoses Rheumatoid arthritis involving multiple sites with positive rheumatoid factor Zak Lee MD [facility] DR RHEUMATOLOG[place] [address] [facility] Med Infusion [address] [place] [address] Referral ID Status Reason Start Date Expiration Date V isits Requested Visits Authorized [id number] Closed Consult, Test & Treat 10/03/2019 10/01/2020 2 2 Encounter Details Date Type Department Care Team (Late st Contact Info) Description 09/16/2019 [place] [address] Zak Lee MD [facility] RHEUMATOLOGY [place] [address] Rheumatoid arthritis involving multiple sites with positive [...] Name Type Priority Associated Diagnoses Order Schedule Auth Request for Infusion Medication Outpatient Referral Routine Rheumatoid arthritis involving multiple sites with positive rheumatoid factor Ordered: 09/16/2019 documented as of this encounter Visit Diagnoses Diagnosis Rheumatoid arthritis involving multiple sites with positive rheumatoid factor documented in this encounter Care Teams Academic Intern Relationship Specialty Start Date End Date Yanique Mandujano APRN [address] [place] [address] PCP - General 04/23/10 10/16/19 documented as of this encounter
--- OUTSIDE RECORDS SUMMARY | 2023-12-11 00:12 | XMS_ITS | Referral Summary ---
Author Organization [facility] Address [address] [place] [address] Care Team Providers Care Fiber Optic Assembly Worker Name Role Phone Aneta Perez Primary Care Provider [phone] Social History Tobacco Use Types Packs/Day Years Used Date Smoking Tobacco: Never Assessed Interpersonal Safety Answer Date Record ed Physically Hurt Never 01/01/2020 Verbally Threaten Not on file 01/01/2020 Sex and Gender Information Value Date Recorded Sex Assigned at Not on file Gender Identity Not on file Sexual Orientation Not on file Plan of Treatment Not on file Procedures Procedure Name Priority Date/Time Associated Diagnosis Comments HEPATITIS C AB W REFLEX TO HCV RNA BY PCR Routine 07/31/2021 11:50 EST from Last 3 Months or Most Recently Relevant to Health Maintenance Results * HEPATITIS C AB W REFLEX TO HCV RNA BY PCR (07/31/2021 11:50 EST) Hep C Antibody Negative Negative 08/01/2021 10:07 EST [facility] Blood VENOUS BLOOD / Unknown 07/31/2021 11:50 EST 07/31/2021 21:30 EST Provider Outr Resulting Lab CHEMISTRY & BLOOD GAS ORDERABLES [facility] [address] [place] [address] from Last 3 Months or Most Recently Relevant to Health Maintenance Care Teams Fiber Optic Assembly Worker Relationship Specialty Start Date End Date Aneta Perez PA [address] [place] [address] PCP - General 11/12/18
--- OUTSIDE RECORDS SUMMARY | 2023-12-11 00:12 | XMS_ITS | Encounter Summary ---
Author Organization [facility] Address [address] [place] [address] Care Team Providers Care Lead Sewage Plant Operator Name Role Phone Aneta Peerz Primary Care Provider [phone] Encounter Details Date Type Department Care Team (Late st Contact Info) Description 01/27/2023 Lab Requisition [facility] Pathology & Laboratory Medicine - [facility] [address] [place] [address] Outr Resulting Lab, Provider Social History Tobacco [...] Comments CHLAMYDIA/N. GONORRHOEAE AMPLIFIED NUCLEIC ACID Routine 01/27/2023 11:40 EDT documented in this encounter Results * CHLAMYDIA/N. GONORRHOEAE AMPLIFIED RNA (01/27/2023 11:40 EDT) Neisseria gonorrhoeae Result Negative Negative 01/28/2023 13:47 EDT [facility] Chlamydia trachomatis Result Negative Negative 01/28/2023 13:47 EDT [facility] Swab VAGINAL STRUCTURE / Unknown 01/27/2023 11:40 EDT 01/27/2023 22:29 EDT Provider Outr Resulting Lab MICROBIOLOGY - GENERAL ORDERABLES [facility] [address] [place] [address] documented in this encounter Visit Diagnoses Not on filedocumented in this encounter Care Teams Lead Sewage Plant Operator Relationship Specialty Start Date End Date Aneta Perez PA [address] [place] [address] PCP - General 11/12/18 documented as of this encounter
--- OUTSIDE RECORDS SUMMARY | 2023-12-11 00:12 | XMS_ITS | Encounter Summary ---
Author Organization [facility] Address [facility] [place] [address] Care Team Providers Care Nurse Ortho Name Role Phone Yanique Mandujano MARIAH Primary Care Provider [phone] Reason for Referral * High Dollar Medication (Routine) - Closed Specialty Diagnoses / Procedures Referred By Contac t Referred To Contact Med Infusion Diagnoses Rheumatoid arthritis, involving unspecified site, unspecified rheumatoid factor presence Zak Lee MD [facility] [address] [place] [address] [facility] Med Infusion [address] [place] [address] Referral ID Status Reason Start Date Expiration Date V isits Requested Visits Authorized [id number] Closed Consult, Test & Treat 12/16/2018 12/16/2019 2 2 Encounter Details Date Type Department Care Team (Late st Contact Info) Description 12/16/2018 Orders [place] [address] [facility] [address] [place] [address] Rheumatoid arthritis, involving unspecified site, unspecified rheumatoid factor presence Social History Tobacco Use Types Packs/Day Years Used Date Smoking Tobacco: Every Day Cigarettes Smokeless Tobacco: Never Sex and Gender Information Value Date Recorded Sex Assigned at Not on file Gender Identity Not on file Sexual Orientation Not on file documented as of this encounter Plan of Treatment Scheduled Referrals Name Type Priority Associated Diagnoses Orde r Schedule Auth Request for Infusion Medication Outpatient Referral Routine Rheumatoid arthritis, involving unspecified site, unspecified rheumatoid factor presence Ordered: 12/16/2018 documented as of this encounter Visit Diagnoses Diagnosis Rheumatoid arthritis, involving unspecified site, unspecified rheumatoid factor presence documented in this encounter Care Teams Nurse Ortho Relationship Specialty Start Date End Date Yanique Mandujano APRN [address] [place] [phone] PCP - General 04/23/10 10/16/19 documented as of this encounter
--- OUTSIDE RECORDS SUMMARY | 2023-12-11 00:12 | XMS_ITS | Encounter Summary ---
Author [facility] [place] [address] Care Team Providers Care Desk Pen Set Assembler Name Role Phone Yanique Mandujano TOBACCO SCRAP SIFTER Primary Care Provider [phone]- [phone] Encounter Details Date Type Department Care Team (Late st Contact Info) Description 06/02/2018 Ancillary Procedure Radiology Library at [facility] [place] [address] Yanique Mandujano APRN [address] [place] [phone] Social History Tobacco Use Types Packs/Day Years [...] FILM LIBRARY STORAGE ONLY DX HAND Routine 06/02/2018 12:00 AM EST documented in this encounter Results * Film Library- Storage Only DX Hand (06/02/2018 12:00 AM EST) Narrative [facility] - 10/05/2019 2:38 PM EDT This exam is auto-finalizing. It's purpose is for storage only. Yanique Mandujano APRN IMG FILM LIBRARY O RDERABLES [place], [place] documented in this encounter Visit Diagnoses Not on filedocumented in this encounter Care Teams Desk Pen Set Assembler Relationship Specialty Start Date End Date Yanique Mandujano, MARIAH [address] [place] [address] PCP - General 04/23/10 10/16/19 documented as of this encounter
--- OUTSIDE RECORDS SUMMARY | 2023-12-11 00:12 | XMS_ITS | Encounter Summary ---
Author Organization [facility] [place] [address] Care Team Providers Care Calender Operator Helper Name Role Phone Yanique Mandujano APRN Primary Care Provider [phone] Encounter Details Date Type Department Care Team (Late st Contact Info) Description 11/30/2018 10:30 AM EDT Office [place] [address] Zak Lee MD [facility] [place] [address] Rheumatoid arthritis involving multiple sites with positive rheumatoid factor; High risk medication use Social History Tobacco Use Types Packs/Day Years Used Date Smoking Tobacco: Every Day Cigarettes Smokeless Tobacco: Never Sex and Gender Information Value Date Recorded Sex Assigned at Not on file Gender Identity Not on file Sexual Orientation Not on file documented as of this encounter Last Filed Vital Signs Vital Sign Reading Time Taken Comments Blood Pressure 118/80 11/30/2018 10:23 AM EDT Pulse 100 11/30/2018 10:23 AM EDT Temperature 36.7 ??C (98 ??F) 11/30/2018 10:23 AM EDT Respiratory Rate - - Oxygen Saturation 99% 11/30/2018 10:23 AM EDT Inhaled Oxygen Concentration - - Weight 65.3 kg (144 lb) 11/30/2018 10:23 AM EDT Height 157.5 cm (5' 2) 11/30/2018 10:23 AM EDT Body Mass Index 26.34 11/30/2018 10:23 AM EDT documented in this encounter Patient Instructions * Patient Instructions* Zak Lee MD - 11/30/2018 10:30 AM EDT Get labs near home. Speak with Patient Financial Services today about the bills. Ask them whether you might be eligiblefor a company program to help with the Rituxan costs. Let me know what they say. We'll reduce the amount of steroids you get with the infusions. Keep track of your sugars after the infusions. Follow up in 6 months. Call if problems. documented in this encounter Progress Notes * Zak Lee MD - 11/30/2018 10:30 AM EDT Rheumatology Clinic: Dr. Lee 11/30/2018 [id number] Liset Hager is seen in follow-up of her seropositive rheumatoid arthritis. We saw her one andonly one time back on 06/02/2018. She has been followed by Dr. Morgan in [place] for about 2 yearsbefore she retired. The patient was treated with methotrexate, but had elevated LFTs and that had to be stopped. She eventually was tried on Humira and that was a reasonable drug for her, but she still had progression in her hands and wrists. After reviewing various options, we elected to go with Rituxan and she received her first cycle shortly after that visit in June. She now returns reporting that she has absolutely no pain. The Rituxan has turned out to be a very good drug for her. She did well with the infusions, although she had a little bit of nausea and she felt like Jell-O immediately after the infusion. We did give her 100 mg of Medrol for each of the infusions and she does have underlying diabetes. We may cut that back this time around. Despite this very positive news, there were 2 disappointing events. First of all, she was charged $12,000 for the cycle of Rituxan. Second of all, a mass that we noted on her exam last visit on the dorsum of the left wrist that we thought represented true synovitis and less likely a ganglion ended up increasing in size and interfering with her left wrist function. It got to the point where Dr. Delgado, her orthopedic surgeon, took her to the OR on 11/09/2018 and dissected out a lot of synovial proliferation, not only in the wrist, but up into the flexor tendons apparently. She is healing up from that operation. She also notes that she has had a nodule on the left fifth MTP. She had a previous rheumatoid nodule in her right olecranon area. But all in all, she seems to be very happy with the way things are going. She is getting some financial assistance from the hospital to cover the Rituxan costs. Patient Active Problem List Diagnosis Code ??? Depression F32.9 ??? Anxiety F41.9 ??? Rheumatoid arthritis involving multiple sites with positive rheumatoid factor M05.79 ??? High risk medication use Z79.899 ??? Degenerative joint disease involving multiple joints M15.9 ??? Cigarette smoker F17.210 ??? Graves disease E05.00 Medications 11/30/18 1029 Medication Sig Taking? albuterol (PROVENTIL) 2.5 mg /3 mL (0.083 %) Solution for Nebulization prn Yes oxyCODONE-acetaminophen (PERCOCET) 5-325 mg Tablet as needed. Yes clonazePAM (KLONOPIN) 0.5 mg Tablet Take 1/2 tablet nightly Yes amitriptyline (ELAVIL) 100 mg Tablet Take 1 tablet by mouth daily. Yes ONETOUCH ULTRA BLUE TEST STRIP Strip as needed. Yes ONETOUCH ULTRA2 Kit as needed. Yes lovastatin (MEVACOR) 10 mg Tablet Take 1 tablet by mouth daily. Yes valsartan (DIOVAN) 80 mg Tablet Take 1 tablet by mouth daily. Yes cloNIDine (CATAPRES) 0.1 mg Tablet Take 1 tablet by mouth daily. Yes lamoTRIgine (LAMICTAL) 100 mg Tablet Take 1 tablet by mouth 2 times daily. In am Yes lamoTRIgine (LAMICTAL) 25 mg Tablet Take 50 mg by mouth every evening. Yes magnesium 250 mg Tablet Take 250 mg by mouth daily. Yes metFORMIN (GLUCOPHAGE) 500 mg Tablet Take 500 mg by mouth daily. Yes cloNIDine (CATAPRES) 0.2 mg tablet Take 0.2 mg by mouth 3 times daily. Yes clonazePAM (KLONOPIN) 0.125 mg Tablet, Rapid Dissolve Take 1 tablet by mouth daily. cholecalciferol, Vitamin D3, (CHOLECALCIFEROL, VITAMIN D3,) 2,000 unit Capsule Take 2,000 Units by mouth daily. Adalimumab 40 mg/0.8 mL Pen Injector Kit Inject subcutaneously every 14 days. Physical Exam: She looks well and healthy. She is in very good spirits today. She seems very upbeat. Blood pressure 118/80, pulse 100, temperature 36.7 ??C (98 ??F), height 157.5 cm (5' 2), weight 65.3 kg (144 lb), SpO2 99 %. Skin: Clear. HEENT: Unremarkable. Lungs: Clear. Heart: Regular rhythm and rate without murmur, gallop, or rub. Abdomen: Benign. No masses, tenderness, or organomegaly. Extremities: No edema. Good distal pulses. Musculoskeletal: She still has low-grade synovitis in her right MCPs and her right wrist although she is not tender there and the exam is significantly better than on her first visit. We could not examine the left hand and wrist because she was in the removable cast from the orthopedic procedure there. Right elbow has a small rheumatoid nodule right in the olecranon bursa at the tip of the olecranon. The left elbow is fine. Shoulders move well. Her hips move well. Her knees move well today. Ankles are fine. She has significant improvement in the synovial thickening at the MTPs, although thereis still some present at the left second and third and some deformity there with splaying of those 2 toes. At #5 on the left, she has a lateral mass which may be a bunionette with callus, but more likely is a rheumatoid nodule. Neuro: Grossly intact. Assessment: She is doing remarkably better on the Rituxan. She also likes the way that it is dosed in that she is generally phobic about self-injectables. The long interval between treatments is alsoto her liking. She will have some lab work done close to home. She does have her next round of Rituxan scheduled. I encouraged her to go down to patient financial services today and discuss the billing issues. I also told her to ask them whether she might be eligible for a company program to help with the Rituxan costs. If not, I asked her to let me know and we will speak with the pharmacists here in the clinic and see if they might be able to help her in that regard. We will reduce the Medrol with her Rituxan down to 50 mg/inf. I recommend that she keep track of her sugars after the infusions to see how high they are going from the Medrol. I will see her back in 6 months, but we will be in touch to discuss the results of her lab tests and her financial situation. She understood the plan. We gave the patient the following specific instructions: Patient Instructions Get labs near home. Speak with Patient Financial Services today about the bills. Ask them whether you might be eligiblefor a company program to help with the Rituxan costs. Let me know what they say. We'll reduce the amount of steroids you get with the infusions. Keep track of your sugars after the infusions. Follow up in 6 months. Call if problems. Over 20 minutes of the 25 minute follow-up were spent discussing these problems and their treatmentoptions in [id number] counseling. Orders Placed This Encounter Procedures ??? CBC (with Diff) ??? Comprehensive metabolic panel (non-fasting) ??? Sedimentation rate ??? CRP, acute inflammation ??? IgG Visit Diagnoses: 1. Rheumatoid arthritis involving multiple sites with positive rheumatoid factor 2. High risk medication use documented in this encounter Plan of Treatment Not on file documented as of this encounter Visit Diagnoses Diagnosis Rheumatoid arthritis involving multiple sites with positive rheumatoid factor High risk medication use Encounter for long-term (current) use of other medications documented in this encounter Care Teams Calender Operator Helper Relationship Specialty Start Date End Date Yanique Mandujano APRN [address] [place] [phone] PCP - General 04/23/10 10/16/19 documented as of this encounter
--- OUTSIDE RECORDS SUMMARY | 2023-12-11 00:12 | XMS_ITS | Encounter Summary ---
[place] [address] Care Team Providers Care Patent Litigation Associate Name Role Phone Yanique Mandujano APRN Primary Care Provider +1- [phone] Encounter Details Date Type Department Care Team (Late st Contact Info) Description 09/30/2019 Specialty [place] [phone] Maude Byrd, HUMAN FACTORS ERGONOMIST Social History Tobacco Use Types Packs/Day Years [...] on filedocumented in this encounter Care Teams Patent Litigation Associate Relationship Specialty Start Date End Date Yanique Mandujano APRN [address] [place] [phone] PCP - General 04/23/10 10/16/19 documented as of this encounter
--- OUTSIDE RECORDS SUMMARY | 2023-12-11 00:12 | XMS_ITS | Encounter Summary ---
Author Organization [facility] Address [facility] [place] [address] Care Team Providers Care Police Captain Senior Name Role Phone Yanique Mandujano APRN Primary Care Provider [phone]- [phone] Reason for Referral * High Dollar Medication (Routine) - Specialty Diagnoses / Procedures Referred By Contac t Referred To Contact Med Infusion Diagnoses Rheumatoid arthritis involving multiple sites with positive rheumatoid factor Procedures TC RITUXIMAB, 10MG INJECTION RITUXAN Zak Lee MD [facility] [place] [address] [facility] Med Infusion [address] [place] [address] Referral ID Status Reason Start Date Expiration Date V isits Requested Visits Authorized [id number] Consult, Test & Treat 12/08/2018 12/30/2018 2 2 Encounter Details Date Type Department Care Team (Late st Contact Info) Description 12/08/2018 Orders [place] [address] Zak Lee MD [facility] [place] [address] Rheumatoid arthritis involving multiple sites with positive [...] multiple sites with positive rheumatoid factor Ordered: 12/08/2018 documented as of this encounter Visit Diagnoses Diagnosis Rheumatoid arthritis involving multiple sites with positive rheumatoid factor documented in this encounter Care Teams Police Captain Senior Relationship Specialty Start Date End Date Yanique Mandujano APRN [address] [place] [address] PCP - General 04/23/10 10/16/19 documented as of this encounter
--- OUTSIDE RECORDS SUMMARY | 2023-12-11 00:12 | XMS_ITS | Encounter Summary ---
[facility] Address [facility] [place] [address] Care Team Providers Care Status Controller Name Role Phone Yanique Mandujano APRN Primary Care Provider [phone] Reason for Visit * Reason Comments Headache Encounter Details Date Type Department Care Team (Late st Contact Info) Description 01/04/2011 3:04 PM EDT - 01/04/2011 7:53 PM EDT [place] [address] Rodney Luna MD [facility] [place] [address] Yanique Cast MD [facility] [place] [address] Headache Discharge Disposition: Home Social History Tobacco Use Types Packs/Day Years Used Date Smoking Tobacco: Every Day Sex and Gender Information Value Date Recorded Sex Assigned at Not on file Gender Identity Not on file Sexual Orientation Not on file documented as of this encounter Last Filed Vital Signs Vital Sign Reading Time Taken Comments Blood Pressure 104/76 01/04/2011 7:23 PM EDT Pulse 66 01/04/2011 7:23 PM EDT Temperature 36.7 ??C (98.1 ??F) 01/04/2011 7:23 PM ED T Respiratory Rate 18 01/04/2011 7:23 PM EDT Oxygen Saturation 99% 01/04/2011 7:23 PM EDT Inhaled Oxygen Concentration - - Weight 60.3 kg (133 lb) 01/04/2011 3:11 PM EDT Height - - Body Mass Index - - documented in this encounter Discharge Instructions * Discharge Instructions* Yanique Cast MD - 01/04/2011 7:35 PM EDT Talk with your primary care doctor about your follow up - there are no further appointments in our system at this time. It would be helpful if you brought the MRI from 2 years ago when you see the specialist Return for increasing pressure, fevers, weakness, vomiting or other medical concerns * Attachments The following attachments cannot be sent through Care Everywhere. * HEADACHE: AFTER YOUR VISIT (MALAYSIAN) documented in this encounter Medications at Time of Discharge Medication Sig Dispensed Refills Start Date End Date cloNIDine (CATAPRES) 0.2 mg tablet Take 0.2 mg by mouth 3 times daily. 06/25/2022 lamoTRIgine (LAMICTAL) 150 mg tablet Take 150 mg by mouth daily. Reported on 07/15/2016 07/15/2016 TRAZODONE HCL (TRAZODONE ORAL) Take by mouth. Reported on 07/15/2016 07/15/2016 documented as of this encounter ED Notes * Brooke Berry RN - 01/04/2011 7:52 PM EDT Pt received copy of discharge instructions and verbalizes understanding. Pt discharge home accompanied by boyfriend. * Yanique Cast MD - 01/04/2011 7:32 PM EDT No chief complaint on file. Patient is a 30 y.o. female presenting with headaches. Headache The primary symptoms include headaches, visual change and nausea. Primary symptoms do not include syncope, loss of consciousness, altered mental status, focal weakness, speech change, fever or vomiting. The symptoms began more than 1 week ago. The symptoms are worsening. The neurological symptoms are diffuse. The headache is associated with photophobia and visual change. The headache is not associated with neck stiffness or weakness. The visual change includes photophobia. Additional symptoms include photophobia. Additional symptoms do not include neck stiffness, weakness or hearing loss. Medical issues do not include seizures. This headache started 2 weeks ago and she describes it as a pressure not a pain it hasn't significantly impacted her day-to-day life. Weakness she is nauseated and does describe it as a pressure . Nothing has made it better she is on Lamictal trazodone and clonidine and has not missed any doses of her medications. Nothing makes her headache worse either. Not on File Review of Systems Constitutional: Positive for activity change. Negative for fever. HENT: Negative for hearing loss, trouble swallowing and neck stiffness. Eyes: Positive for photophobia. Respiratory: Negative. Cardiovascular: Negative. Negative for syncope. Gastrointestinal: Positive for nausea. Negative for vomiting. Genitourinary: Negative for difficulty urinating. Musculoskeletal: Positive for back pain. Skin: Negative. Neurological: Positive for headaches. Negative for speech change, focal weakness, loss of consciousness and weakness. Psychiatric/Behavioral: Negative for altered mental status. The patient is nervous/anxious. Physical Exam Nursing note and vitals reviewed. Constitutional: She is oriented to person, place, and time. She appears well- developed and well-nourished. No distress. HENT: Head: Normocephalic and atraumatic. Head is without raccoon's eyes. Mouth/Throat: Oropharynx is clear and moist and mucous membranes are normal. Eyes: Conjunctivae and EOM are normal. Neck: Neck supple. Cardiovascular: Normal rate, regular rhythm and normal heart sounds. Pulmonary/Chest: Effort normal and breath sounds normal. No respiratory distress. She exhibits no bony tenderness. Abdominal: Soft. She exhibits no distension. No tenderness. Genitourinary: No CVAT Musculoskeletal: Normal range of motion. She exhibits no tenderness. No extremity deformity Neurological: She is alert and oriented to person, place, and time. She has normal strength. No cranial nerve deficit. Coordination and gait normal. Skin: Skin is warm, dry and intact. No bruising, no ecchymosis and no laceration noted. Psychiatric: She has a normal mood and affect. Her speech is normal and behavior is normal. Procedures MDM Number of Diagnoses or Management Options Headache: new, needed workup Amount and/or Complexity of Data Reviewed Tests in the radiology section of CPT??: ordered and reviewed Obtain history from someone other than the patient: yes Independent visualization of images, tracings, or specimens: yes Risk of Complications, Morbidity, and/or Mortality Presenting problems: high Management options: moderate ED Course: Ms. 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 She is very worried that something is caught ongoingwith that cyst. Her symptoms to be worse lying down versus standing up she does not have morning headaches compared the evening headaches but rather this pressure sensation all of the time. Is reassuring normal. She has no meningismus. I ordered a head CT with the history of the cyst to make sure she didn't have an obstructing type of hydrocephalus causing her to have pressure headaches. Her reviewed her head CT and it is I gave her Toradol and Phenergan for her headache which make it completely go away discussed an LP with her which she said she didn't want. Him completely after the Toradol and Phenergan. Looked in our record to see if she had appointment scheduled in the future however she does not. She tells me at the end of her visit that she received a letter from her primary care doctor on Thursday saying she needed to see a specialist. Outside MRI for comparison when she has hernew MRI and is referred to what I assume will be a neurosurgeon but I'm don't have the MRI so I'm not completely sure with her primary care doctor I encouraged her to call to arrange this followup and return for worsening Yanique Cast MD 01/04/111939 Yanique Cast MD 01/04/111941 * Brooke Berry RN - 01/04/2011 6:52 PM EDT Pt returned from Ct. * Brooke Berry RN - 01/04/2011 5:41 PM EDT Patient is resting comfortably, awaiting update from Kristi Cast notified of pt's request. * Brooke Berry, LOI - 01/04/2011 3:26 PM EDT Pt reporting that she was diagnosed with cyst in head 2 years ago that was 8 cm in [place], [place]. Pt states she was supposed to see specialist but hasn't yet. Pt reports no f/u care since diagnosis. Pt unwilling to cooperate with neuro check to eyes, pulling sweat shirt over face, reporting thatlight uncomfortable. Pt denies n/v, good appetite, reports tired and dizzy all the time. Boyfriend @ bedside. documented in this encounter Miscellaneous Notes * Discharge Summary - Provider, Scanning - 01/06/2011 8:29 AM EDT * Miscellaneous - Provider, Scanning - 01/04/2011 4:11 PM EDT * ED Triage - Jordan Mcgee RN - 01/04/2011 3:14 PM EDT Pt holdering head but she is alert oriented resp are regular unlabored abd is soft nontender pt denies nausea at this time puples are equal round and react to light documented in this encounter Plan of Treatment Not on file documented as of this encounter Procedures Procedure Name Priority Date/Time Associated Diagnosis Comments CT HEAD WO CONTRAST (GENERIC) Routine 01/04/2011 6:47 PM EDT documented in this encounter Results * CT HEAD WO CONTRAST (01/04/2011 6:47 PM EDT) Anatomical Region Laterality Modality Head Computed Tomogra phy 01/04/2011 6:47 PM EDT Impressions 01/06/2011 10:42 PM EDT IMPRESSION: ?? 1. ??No mass or ventriculomegaly. 2. ??Mucosal thickening of ethmoidal air cells, which may reflect sinus inflammatory disease. Film and interpretation reviewed by the attending Narrative 01/06/2011 10:[address] OF THE HEAD: CLINICAL HISTORY: ??Head pressure with blurred vision. COMPARISON: ??None available. TECHNIQUE: ??Noncontrast CT of the head. ??There was motion artifact through the skull base, and this section was repeated. FINDINGS: ??There is no intracranial hemorrhage, mass, or extraaxial fluid collection. ??The ventricles are symmetrically normal in size. ??The basal cisterns are patent. ??There is mucosal thickening of scattered bilateral ethmoidal air cells consistent with sinusitis. ??No air-fluid level is seen within the visualized paranasal sinuses. ??No skull fracture is identified. Procedure Note Keenan Goel MD - 01/06/[address] OF THE HEAD: CLINICAL HISTORY: Head pressure with blurred vision. COMPARISON: None available. TECHNIQUE: Noncontrast CT of the head. There was motion artifact throughthe skull base, and this section was repeated. FINDINGS: There is no intracranial hemorrhage, mass, or extraaxial fluid collection. The ventricles are symmetrically normal in size. The basal cisterns are patent. There is mucosal thickening of scattered bilateral ethmoidal air cells consistent with sinusitis. No air-fluid level is seen within the visualized paranasal sinuses. No skull fracture isidentified. IMPRESSION IMPRESSION: 1. No mass or ventriculomegaly. 2. Mucosal thickening of ethmoidal air cells, which may reflect sinus inflammatory disease. Film and interpretation reviewed by the attending Yanique Cast MD IM CT ORDERABLES documented in this encounter Visit Diagnoses Diagnosis Headache(784.0) Headache Depression Depressive disorder, not elsewhere classified Anxiety Anxiety state, unspecified documented in this encounter Administered Medications Inactive Administered Medications - up to 3 most recent administrations Medication Order MAR Action Action Date Dose Rate Site ketorolac (TORADOL) injection 30 mg 30 mg, Intravenous, ONCE, 1 dose, On 01/04/11 at 1615, Routine Given 01/04/2011 4:15 PM EDT 30 mg sodium chloride 0.9% 1,000 mL IV bolus 1 L, Intravenous, ONCE, 1 dose, On 01/04/11 at 1615 Given 01/04/2011 4:15 PM EDT 1 L documented in this encounter Active and Recently Administered Medications Times are shown in EDT. Scheduled Medication Order 01/02/2011 01/03/2011 01/04/2011 ketorolac (TORADOL) injection 30 mg (COMPLETED) 30 mg, Intravenous, ONCE, 1 dose, On 01/04/11 at 1615, Routine 1615 (Given - Provid er: Brooke Berry RN) sodium chloride 0.9% 1,000 mL IV bolus (COMPLETED) 1 L, Intravenous, ONCE, 1 dose, On 01/04/11 at 1615 1615 (Given - Provid er: Brooke Berry RN) documented in this encounter Care Teams Status Controller Relationship Specialty Start Date End Date Yanique Mandujano APRN [address] [place] [id number] PCP - General 04/23/10 10/16/19 documented as of this encounter
--- OUTSIDE RECORDS SUMMARY | 2023-12-11 00:12 | XMS_ITS | Encounter Summary ---
Author Organization [facility] Address [address] [place] [address] Care Team Providers Care Print Shop Assistant Name Role Phone Aneta Perez Primary Care Provider [phone] Encounter Details Date Type Department Care Team (Late st Contact Info) Description 07/31/2021 Lab Requisition [facility] Pathology & Laboratory Medicine - [facility] [address] [place] [address] Outr Resulting Lab, Provider Social History Tobacco [...] Procedure Name Priority Date/Time Associated Diagnosis Comments HIV 1/2 ANTIGEN AND ANTIBODY, 4TH GENERATION Routine 07/31/2021 11:50 EST documented in this encounter Results * HIV 1/2 ANTIGEN AND ANTIBODY, 4TH GENERATION (07/31/2021 11:50 EST) HIV 1 and 2 Antibody/p24 Antigen, 4th Generation Negative Negative 08/01/2021 10:31 EST [facility] Comment:If acute HIV-1 infec tion is suspected in a high risk patient, submit plasma specimen for HIV-1 RNA quantitation test. Blood VENOUS BLOOD / Unknown 07/31/2021 11:50 EST 07/31/2021 21:30 EST Narrative [facility] - 08/01/2021 10:31 EST Fourth Generation assay performed on the Siemens Datalotaur XPT. Provider Outr Resulting Lab IMMUNOLOGY A ND SEROLOGY ORDERABLES [facility] [address] [place] [address] documented in this encounter Visit Diagnoses Not on filedocumented in this encounter Care Teams Print Shop Assistant Relationship Specialty Start Date End Date Aneta Perez PA [address] [place] [address] PCP - General 11/12/18 documented as of this encounter
--- OUTSIDE RECORDS SUMMARY | 2023-12-11 00:12 | XMS_ITS | Encounter Summary ---
Author Organization [facility] Address [address] [place] [address] Care Team Providers Care Pipe Wrapping Machine Operator Name Role Phone Aneta Perez Primary Care Provider [phone] Encounter Details Date Type Department Care Team (Latest Contact Info) Description 05/07/2021 Lab Requisition [facility] Pathology & Laboratory Medicine - [facility] [address] [place] [address] Do Parisi, SUPERVISOR PLASMA [address] [place] [address] Encounter for screening for malignant neoplasm of cervix; Encounter for screening for human papillomavirus (HPV) Social History Tobacco Use Types Packs/Day Years [...] Procedure Name Priority Date/Time Associated Diagnosis Comments PAP TEST Today 05/06/2021 10:30 EST Encounter for screening for malignant neoplasm of cervix Encounter for screening for human papillomavirus (HPV) HPV DNA DETECTION WITH GENOTYPING, PCR Today 05/06/2021 10:30 EST Encounter for screening for malignant neoplasm of cervix Encounter for screening for human papillomavirus (HPV) documented in this encounter Results * HUMAN PAPILLOMAVIRUS (HPV) DETECTION-HIGH RISK TYPES (05/06/2021 10:30 EST) HPV other High Risk types, PCR Negative Negative 05/15/2021 8:42 [facility] Comment:No E6 or E7 mRNA is detected from HPV types 16,18,31,33,35,39,45,51,52,56,58,59,66, and 68 by actuarial mathematician mediated amplification. Papanicolaou smear specimen (specimen) CERVIX UTERI STRUCTURE / Unknown 05/06/2021 10:30 EST 05/13/2021 14:53 EST Do Roel Parisi SUPERVISOR PLASMA MICROBIOLOGY - GE NERAL ORDERABLES [facility] [address] [place] [address] * PAP TEST (05/06/2021 10:30 EST) Specimens A. Cervix and/or Endocervix , ThinPrep Imaging System with Manual Evaluation 05/15/2021 8:42 [facility] Specimen Adequacy Satisfactory for Evaluation - transformation zone component present 05/15/2021 8:42 [facility] General Categorization Negative for intraepithelial lesion or malignancy 05/15/2021 8:42 [facility] Descriptive Diagnosis Shift in sona present suggestive of bacterial vaginosis. 05/15/2021 8:42 [facility] Attestation . 05/15/2021 8:42 [facility] at 0842 Clinical History See below 05/15/20 8:42 [facility] HPV The result for the Human Papillomavirus (HPV) Detection-High Risk Types is Negative. No E6 or E7 mRNA is detected from HPV types 16,18,31,33,35,39 ,45,51,52,56,58,5 9,66, and 68 by actuarial mathematician mediated amplification.Allie ting was performed on specimen [id number] and was resulted on 05/15/2021 0838 EST by MICHELLE, LAB INSTRUMENT RESULTS IN 05/15/2021 8:42 EST [facility] Performing Lab [facility] 05/15/2021 8:42 EST [facility] Scanned Images 05/15/2021 8:42 EST [facility] Papanicolaou smear specimen (specimen) CERVIX UTERI STRUCTURE / Unknown 05/06/2021 10:30 EST 05/07/2021 15:02 EST Do Parisi SUPERVISOR PLASMA PATHOLOGY ORDERAB LES [facility] [address] [place] [address] documented in this encounter Visit Diagnoses Diagnosis Encounter for screening for malignant neoplasm of cervix Screening for malignant neoplasm of the cervix Encounter for screening for human papillomavirus (HPV) Special screening examination for human papillomavirus (HPV) documented in this encounter Care Teams Pipe Wrapping Machine Operator Relationship Specialty Start Date End Date Aneta Perez PA [address] [place] [address] PCP - General 11/12/18 documented as of this encounter
--- OUTSIDE RECORDS SUMMARY | 2023-12-11 00:12 | XMS_ITS | Encounter Summary ---
Author Organization [facility] Address [address] [place] [address] Care Team Providers Care Supply Assistant Name Role Phone Aneta Perez Primary Care Provider [phone] Encounter Details Date Type Department Care Team (Late st Contact Info) Description 12/26/2022 Lab Requisition [facility] Pathology & Laboratory Medicine - [facility] [address] [place] [address] Outr Resulting Lab, Provider Social History Tobacco [...] Procedure Name Priority Date/Time Associated Diagnosis Comments CD19 CD20 STUDY Routine 12/26/2022 7:35 EDT documented in this encounter Results * (ABNORMAL) CD19 CD20 PANEL (12/26/2022 7:35 EDT) CD19 <1(L) 6 - 24 % 12/29/2022 15:44 EDT [facility] CD20 <1(L) 6 - 24 % 12/29/2022 15:44 EDT [facility] Blood VENOUS BLOOD / Unknown 12/26/2022 7:35 EDT 12/26/2022 17:37 EDT Narrative [facility] - 12/29/2022 15:44 EDT Analyte Specific Reagent. ??This test was developed and its performance characteristics determined by Laboratory Medicine and Pathology, [facility]. This test has not been cleared or approved by the US Food and Drug Administration. FDA does not require this test to go through premarket FDA review. ??This test is used for clinical purposes. It should not be regarded as investigational or for research. This laboratory is certified under the Clinical Laboratory Improvement Amendments of 1988 (CLIA) as qualified to perform high complexity clinical laboratory testing. B-cells often comprise <1% of total lymphocytes in patients receiving B-cell depletion therapy. Provider Outr Resulting Lab IMMUNOLOGY A ND SEROLOGY ORDERABLES [facility] [address] [place] [address] documented in this encounter Visit Diagnoses Not on filedocumented in this encounter Care Teams Supply Assistant Relationship Specialty Start Date End Date Aneta Perez PA [address] [place] [address] PCP - General 11/12/18 documented as of this encounter
--- OUTSIDE RECORDS SUMMARY | 2023-12-11 00:12 | XMS_ITS | Encounter Summary ---
Author Organization [facility] [place] [address] Care Team Providers Care Die Maintenance Name Role Phone Yanique Mandujano APRN Primary Care Provider [phone] Reason for Visit * Reason Onset Date Comments Other 06/10/2018 Encounter Details Date Type Department Care Team (Late st Contact Info) Description 06/10/2018 [place] [phone] Momo Knight RN Other Social History Tobacco Use Types Packs/Day Years Used Date Smoking Tobacco: Every Day Cigarettes Smokeless Tobacco: Never Sex and Gender Information Value Date Recorded Sex Assigned at Not on file Gender Identity Not on file Sexual Orientation Not on file documented as of this encounter Miscellaneous Notes * Telephone Encounter - Momo Knight RN - 06/11/2018 11:37 AM EST Patient was unable to get into [facility] for labs. She has since reset her password and has no current questions regarding labs. * Telephone Encounter - Momo Knight RN - 06/10/2018 12:26 PM EST Patient calls clinic, leaves message requesting call back. Call returned to patient, unavailable, message left with call back number. documented in this encounter Plan of Treatment Not on file documented as of this encounter Visit Diagnoses Not on filedocumented in this encounter Care Teams Die Maintenance Relationship Specialty Start Date End Date Yanique Mandujano APRN [address] [place] [address] PCP - General 04/23/10 10/16/19 documented as of this encounter
--- OUTSIDE RECORDS SUMMARY | 2023-12-11 00:12 | XMS_ITS | Encounter Summary ---
Author Organization [facility] Address [address] [place] [address] Care Team Providers Care General Production Worker Name Role Phone Aneta Perez Primary Care Provider [phone] Encounter Details Date Type Department Care Team (Latest Contact Info) Description 08/24/2020 Lab Requisition [facility] Pathology & Laboratory Medicine - [facility] [address] [place] [address] Micaela Abraham, DO [address] [place] [address] termite helper (current) use of non-steroidal anti-inflammatories (nsaid); Personal history of other diseases of the musculoskeletal system and connective tissue; Gastric ulcer, unspecified as acute or chronic, without hemorrhage or perforation; Duodenitis without bleeding; Diaphragmatic hernia without obstruction or gangrene; Esophageal obstruction Social History Tobacco Use Types Packs/Day Years [...] Procedure Name Priority Date/Time Associated Diagnosis Comments SURGICAL PATHOLOGY Today 08/24/2020 7: 39 EDT termite helper (current) use of non-steroidal anti-inflammatories (nsaid) Personal history of other diseases of the musculoskeletal system and connective tissue Gastric ulcer, unspecified as acute or chronic, without hemorrhage or perforation Duodenitis without bleeding Diaphragmatic hernia without obstruction or gangrene Esophageal obstruction documented in this encounter Results * SURGICAL PATHOLOGY (08/24/2020 7:39 EDT) Final Diagnosis A. DUODENUM, BIOPSY: - Mild focal peptic duodenitis. B. STOMACH, ANTRUM, BIOPSY: - Antral mucosa with reactive (chemical) gastropathy. - Negative for Helicobacter pylori on H&E stained sections. C. STOMACH, GREATER CURVATURE, BIOPSY: - Gastric fundic mucosa with no significant diagnostic abnormalities. - Negative for Helicobacter pylori on H&E stained sections. D. GASTROESOPHAGEAL JUNCTION, BIOPSY: - Squamous mucosa with no significant diagnostic abnormalities. 08/28/2020 10:59 [facility] Attestation By the signature below, the attending physician certifies that they have 1) personally conducted a gross and/or microscopic examination of the described specimen(s), and/or personally interpreted the results of laboratory testing of the described specimen(s), and 2) personally rendered or confirmed the above diagnosis. 08/28/2020 10:59 [facility] at 1059 Clinical History Hx duodenal ulcer, hiatal hernia 08/28/2020 10:59 [facility] Gross Description A. Received in formalin labelled with proper patient identification (initials F, B) and duodenal bulb Bx is a pale-vargas tissue (0.3 x 0.2 x 0.2 cm). Submitted intact in A1. B. Received in formalin labelled with proper patient identification (initials F, B) and antrum Bx is a pale in tissue (0.4 x 0.2 x 0.2 cm). Submitted intact in B1. C. Received in formalin labelled with proper patient identification (initials F, B) and greater curve Bx is a pale-vargas focally brown tissue (0.5 x 0.3 x 0.3 cm). Submitted intact in C1. D. Received in formalin labelled with proper patient identification (initials F, B) and GE junction Bx is a white tissue (0.4 x 0.3 x 0.2 cm). Submitted intact in D1Noe Zuñiga 08/25/2020 8:14 08/28/2020 10:59 EDT [facility] Performing Lab [facility] 10:59 EDT [facility] Scanned Images 08/28/2020 10:59 EDT [facility] Tissue ENTIRE ESOPHAGO-JOSE JUANCARLOS MUCOSAL JUNCTION / Unknown 08/24/2020 7:39 EDT 08/24/2020 16:27 EDT Tissue specimen (specimen) PYLORIC ANTRUM STRUCTURE / Unknown 08/24/2020 7:39 EDT 08/24/2020 16:27 EDT Tissue specimen (specimen) STOMACH STRUCTURE / Unknown 08/24/2020 7:39 EDT 08/24/2020 16:27 EDT Tissue specimen (specimen) CARDIOESOPHAGEAL JUNCTION STRUCTURE / Unknown 08/24/2020 7:39 EDT 08/24/2020 16:27 EDT Micaela Abraham DO PATHOLOGY ORDERABLES [facility] [address] [place] [address] documented in this encounter Visit Diagnoses Diagnosis skilled nursing (current) use of non-steroidal anti-inflammatories (nsaid) Personal history of other diseases of the musculoskeletal system and connective tissue Gastric ulcer, unspecified as acute or chronic, without hemorrhage or perforation Duodenitis without bleeding Duodenitis without mention of hemorrhage Diaphragmatic hernia without obstruction or gangrene Diaphragmatic hernia without mention of obstruction or gangrene Esophageal obstruction Stricture and stenosis of esophagus documented in this encounter Care Teams General Production Worker Relationship Specialty Start Date End Date Aneta Perez PA [address] [place] [id number] PCP - General 11/12/18 documented as of this encounter
--- OUTSIDE RECORDS SUMMARY | 2023-12-11 00:12 | XMS_ITS | Encounter Summary ---
Author Organization [facility] Address [facility] [place] [address] Care Team Providers Care Auto Seat Cover Installer Name Role Phone Yanique Mandujano MARIAH Primary Care Provider [phone] Reason for Referral * Occupational Therapy (Routine) - Duplicate Referral Specialty Diagnoses / Procedures Referred By Roberto palomares Referred To Contact Occupational Therapy Diagnoses Tendon rupture of wrist, left, initial encounter Ulises Parry MD [facility] [place] [address] [facility] [address] [place] [address] Referral ID Status Reason Start Date Expiration Date Visits Requested Visits Authorized [id number] Duplicate Referral Evaluate and Treat 10/05/2019 10/04/2020 12 12 Reason for Visit * Reason Comments Advice Only RA bilat pain, * Consultation (Routine) - Closed Specialty Diagnoses / Procedures Referred By Contac t Referred To Contact Plastic Surgery Diagnoses Rheumatoid arthritis involving multiple sites with positive rheumatoid factor Tendon dysfunction Zak Lee MD [facility] [place] [address] Ulises Parry MD [facility] [place] [address] Referral ID Status Reason Start Date Expiration Date V isits Requested Visits Authorized [id number] Closed Consult, Test & Treat 09/30/2019 09/29/2020 1 1 Encounter Details Date Type Department Care Team (Late st Contact Info) Description 10/05/2019 9:30 AM EDT Office Visit Plastic Surgery at [facility] [place] [address] Ulises Parry MD [facility] [place] [address] Tendon rupture of wrist, left, initial encounter [...] Sign Reading Time Taken Comments Blood Pressure - - Pulse - - Temperature - - Respiratory Rate - - Oxygen Saturation - - Inhaled Oxygen Concentration - - Weight 66.7 kg (147 lb) 10/05/2019 9:45 AM EDT p er pt Height 157.5 cm (5' 2) 10/05/2019 9:45 AM EDT p er pt Body Mass Index 26.89 10/05/2019 9:45 AM EDT documented in this encounter Patient Instructions * Patient Instructions* Haley Perez RN - 10/05/2019 9:30 AM EDT You were given written and [...] pre-operative physical with your primary care doctor Two Weeks prior to Surgery YOU DO NOT NEED TO STOP any aspirin or ibuprofen products before your surgery. Stop Garlic supplements, Ginseng, Ginkgo, Tumeric and Ron's Wort and any other herbals. You mayresume taking 48 hours after surgery. If you need medication for pain, you may take Tylenol or extra strength Tylenol during this two week period. Medication Specific Instructions n/a One Week prior to Surgery Please call [...] NOT wear any rings, nail citizen of [place] or artifical nails. The Same Day Surgery [...] Day of Surgery You will need a ice cream truck driver. If you do not have a ice cream truck driver, your surgery will be canceled. DO NOT wear any jewelry, makeup or artificial nails. Do wear comfortable, loose fitting clothes. Anesthesia will meet with you the morning of surgery. They will perform an assessment and review your history with you. Contact Information: During regular office hours (Thursday- Thursday, non-holiday 8:00 am- 5:00 pm) For an appointment or insurance questions [phone] For questions pertaining to your surgical date [phone] For nursing related questions [phone] On weekends, holidays or after office hours: Call [phone] and ask the benzol still operator to page the Plastic Surgery Resident wall insulation sprayer. documented in this encounter Progress Notes * Ulises Parry MD - 10/05/2019 9:30 AM EDT Plastic Surgery Hand Consultation Note I have been asked to see the patient by Dr. Zak Lee CC: RA, painful wrists Hand Dominance: Left hand Occupation: [employer] Workers Compensation: no Mechanism of Injury and HPI: Liset Hager is a 39 y.o. female who suffers significantly from seropositive RA. She is being referred to our clinic by Dr. Lee to discuss possible surgical interventions to improve the overall functionality of her index fingers bilaterally. Her left index fingeris most bothersome. She has tried the following treatments which consists of methotrexate and Humira but for reasons had to discontinue both of those medications. She now takes Rituxan which seems most successful. She was diagnosed with RA 3-4 years ago. She started to have pain with her hands, knee joints and shoulder joints which became really bothersome therefore seeing her PCP and was diagnosed with RA. She expresses that she had some sort of procedure to her left hand (likely flexor synovectomy) with in [facility]. Unfortunately, we do not have the operative reports to understand what procedure was preformed. She expresses that she has difficulty with bending her index fingers down bilaterally for the last 2-3 years now. Several times during the visit she expresses that it doesn't matter to her if the finger was removed especially if the finger continues to be non functional. She is an [employer]STRU[employer]. She is a diabetic but doesn't check her sugars regularly. Her last A1C was 7.1. She is a smoker. No past medical history on file. No past surgical history on file. Social History Socioeconomic History ??? Marital status: [...] file Gets together: Not on file Attends adventist service: Not on file Active member of [...] Milk Other (See Comments) Upset stomach ??? Egg Nausea Only ??? Penicillins Rash ??? Tylenol W Codeine [Acetaminophen-Codeine] Other (See Comments) Don't know where I am, or what I'm doing Current Outpatient Medications on File Prior to Visit Medication Sig Dispense Refill ??? naproxen (NAPROSYN) 500 mg Tablet Take 1 tablet by mouth 2 times daily (with meals). 60 tablet 12 ??? albuterol (PROVENTIL) 2.5 mg /3 mL (0.083 %) Solution for Nebulization prn ??? oxyCODONE-acetaminophen (PERCOCET) 5-325 mg Tablet as needed. ??? clonazePAM (KLONOPIN) 0.5 mg Tablet Take 1/2 tablet nightly ??? amitriptyline (ELAVIL) 100 mg Tablet Take 1 tablet by mouth daily. ??? ONETOUCH ULTRA BLUE TEST STRIP Strip as needed. ??? ColosseoEASTOUCH ULTRA2 Kit as needed. ??? clonazePAM (KLONOPIN) 0.125 mg Tablet, Rapid Dissolve Take 1 tablet by mouth daily. ??? lovastatin (MEVACOR) 10 mg Tablet Take 1 tablet by mouth daily. ??? valsartan (DIOVAN) 80 mg Tablet Take 1 [...] Capsule Take 2,000 Unitsby mouth daily. ??? magnesium 250 mg Tablet Take 250 mg by mouth daily. ??? Adalimumab 40 mg/0.8 mL Pen Injector Kit Inject subcutaneously every 14 days. ??? metFORMIN (GLUCOPHAGE) 500 mg Tablet Take 500 mg by mouth daily. ??? cloNIDine (CATAPRES) 0.2 mg tablet Take 0.2 mg by mouth 3 times daily. Current Facility-Administered Medications on File Prior to Visit Medication Dose Route Frequency Provider Last Rate Last Dose ??? [COMPLETED] diphenhydrAMINE (Benadryl) capsule 25 mg 25 mg Oral Once Zak Lee MD 25 mg at 10/03/19 1050 ??? methylPREDNISolone (Medrol) tablet 16 mg 16 mg Oral Daily Zak Lee MD ??? [COMPLETED] riTUXimab (RITUXAN) 1,000 mg in sodium chloride 0.9% 500 mL infusion 1,000 mg Intravenous Once Zak Lee MD Stopped at 10/03/19 1420 Examination: There were no vitals taken for this visit. No acute distress Left Upper extremity: (Index finger) Wrist: Full range of motion (flexion, extension, [...] fingers warm/pink/sensate to LT, no nail abnormality Right: As left, right index without significant flexion at PIP or DIP, no surgical scars on R hand, PL intact, hand NO intact, mild synovitis of thumb MP. Diagnostic Testing: XR hands bilaterally 06/02/2018 IMPRESSION 1. No definite osseous erosions. Rounded lucencies in the head of the first and third metacarpals are new since 2015 and could represent subchondral cysts or osseous erosions. ?? 2. Otherwise, joint spaces are relatively well-preserved. Impression: Liset Hager is a 39 y.o. female patient with RA and bilateral index finger FDS/FDP ruptures.. I discussed with patient that I would like to obtain the operative report to understandwhat was done during her surgical procedure. I reviewed with the patient that I could potentially release any scar tissue within the skin that may be contributing to the tightness.. I discussed with patient that I would need to use a segement of tendon to fill the gap to the damaged area. I expressed that the goal here when proceeding with surgery is for her to bend the index finger. However, we also discussed amputation of the finger if the finger continues to be non functional. She does have some synovitis in her iza thumb MP joints. Post surgery she will need be be out of work for about 6 weeks, she will be splinted post op. She would like to proceed with surgical intervention. I also discussed the importance of her managing her diabetes and checking her A1C prior to surgery. Surgical Grid Surgeon: Sohan Duration: 2 hours Timeframe: Some time in November. (Early November) Procedure: tendon transfer with tendon graft, FPL index to FPL of long. CPT: 66514 Surgical site: index finger Side: left hand Anesthesia: General Follow up: 7 Days H&P: yes Implants needed: tendon harvester and guaman OT needed at post op visit: yes, dorsal blocking splint Plan: Obtain operative notes from Dr. Delgado ([facility]) Obtain MRI and report from [facility] Proceed with tendon transfer with tendon graft IFaviola, have performed the documentation for this encounter in the presence of and acting as a scribe for Ulises Parry MD. documented in this encounter Plan of Treatment Scheduled Referrals Name Type Priority Associated Diagnoses Order Schedule Referral to Occupational Therapy Outpatient Referral Routine Tendon rupture of wrist, left, initial encounter Ordered: 10/05/2019 documented as of this encounter Visit Diagnoses Diagnosis Tendon rupture of wrist, left, initial encounter documented in this encounter Care Teams Auto Seat Cover Installer Relationship Specialty Start Date End Date Yanique Mandujano APRN [address] [place] [phone] PCP - General 04/23/10 10/16/19 documented as of this encounter
--- OUTSIDE RECORDS SUMMARY | 2023-12-11 00:12 | XMS_ITS | Encounter Summary ---
Author Organization [facility] [place] [address] Care Team Providers Care Medication Administration Professional Name Role Phone Yanique Mandujano APRN Primary Care Provider [phone] Reason for Referral * High Dollar Medication (Routine) - Closed Specialty Diagnoses / Procedures Referred By Contac t Referred To Contact Med Infusion Diagnoses Rheumatoid arthritis involving multiple sites with positive rheumatoid factor Procedures TC RITUXIMAB, 10MG INJECTION Zak Lee MD [facility] [place] [address] [facility] Med Infusion [address] [place] [phone] Referral ID Status Reason Start Date Expiration Date V isits Requested Visits Authorized [id number] Closed Consult, Test & Treat 06/02/2018 06/02/2019 2 2 Reason for Visit * Consultation (Routine) - Specialty Diagnoses / Procedures Referred By Contac t Referred To Contact Rheumatology Diagnoses RA Yanique Mandujano, STRUCTURAL METAL FABRICATOR APPRENTICE [address] [place] [address] [facility] Rheumatology [address] [place] [phone] Referral ID Status Reason Start Date Expiration Date V isits Requested Visits Authorized [id number] Consult, Test & Treat [facility] 02/04/2018 02/04/2019 1 1 Encounter Details Date Type Department Care Team (Late st Contact Info) Description 06/02/2018 10:00 AM EST Office [place] [address] Zak Lee MD [facility] [place] [address] Rheumatoid arthritis involving multiple sites with positive rheumatoid factor; High risk medication use; Other secondary osteoarthritis of multiple sites; Cigarette smoker; Graves disease Social History Tobacco Use Types Packs/Day Years Used Date Smoking Tobacco: Every Day Cigarettes Smokeless Tobacco: Never Sex and Gender Information Value Date Recorded Sex Assigned at Not on file Gender Identity Not on file Sexual Orientation Not on file documented as of this encounter Last Filed Vital Signs Vital Sign Reading Time Taken Comments Blood Pressure 119/71 06/02/2018 10:20 AM EST Pulse 109 06/02/2018 10:20 AM EST Temperature 36.7 ??C (98.1 ??F) 06/02/2018 10:[address] Respiratory Rate - - Oxygen Saturation 99% 06/02/2018 10:20 AM EST Inhaled Oxygen Concentration - - Weight 65.8 kg (145 lb) 06/02/2018 10:20 AM EST Height 157.5 cm (5' 2) 06/02/2018 10:20 AM EST Body Mass Index 26.52 06/02/2018 10:20 AM EST documented in this encounter Patient Instructions * Patient Instructions* Zak Lee MD - 06/02/2018 10:00 AM EST Get labs and x-rays today at 3L. Call or myD for results if you don't hear from us by next week. Further recommendations based on test results. We'll start prior authorization process for Rituxan. Read about the medicine on the web ([email or web address]) Continue Humira for now. Follow up in 6 months. Call if problems or concerns. documented in this encounter Progress Notes * Zak Lee MD - 06/02/2018 10:00 AM EST Rheumatology Clinic: Dr. Lee 06/02/2018 [id number] Fabian Mandujano is a 37 y.o. female patient whom we see in consultation for Yanique Mandujano APRN in evaluation of rheumatoid arthritis. She was a woman who was diagnosed with rheumatoid arthritisabout [address] Moragn in [place]. She was tried on prednisone, but that aggravated herdiabetes. She was also treated with methotrexate, but that quickly caused market elevations in her liver function tests and was stopped. Eventually she was tried on Humira and that worked in general well for her shoulders, knees, and feet, but she has continued to have progressive pain and swellingin her hands and her wrists and she is worried about losing function. She is requesting a second opinion. In addition, it is my understanding that Dr. Morgan is giving up her practice in [place]. The patient has had no significant infections while on the Humira. She does feel that she responds to it to some extent. She can always tell when it is coming time for her next Humira injection because her pain and stiffness increase. She also feels better after each injection, but despite that her hands continue to be problematic. She is particularly concerned about her second digits bilaterally where she can no longer flex at the PIP and DIP joints. She wonders what is causing that. She drops a lot of things when grasping with her hands. She feels she is becoming weak in her hands. 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 She is having difficulty doing some of her work assignments there. Her colleagues have been able to help out and do things that she is not capable of, but she would prefer to be able to do them herself, of course. She does recall Dr. Morgan bring up 2 self-injectables that were rejected by her insurance company. According to the patient, Dr. Morgan asked her to talk to the insurance company about getting it covered. The patient did not exactly know how to go about that. When I mentioned some names, she thought Orencia was one of the proposed options. She was not sure about Enbrel, although she did recallthat her insurer refused to cover that. We discussed other alternatives, including Xeljanz and Rituxan. She would really like to go for the Rituxan because of the lack of self-injection and the long interval between dosing. She is phobic about needles and it is very difficult for her to give herself the Humira. Also, with this dramatic reaction to methotrexate, I might be reluctant to put her on Arava in combination with the Humira, which might otherwise be an acceptable choice. She does have a lot of underlying medical problems, despite her young age, including chronic diabetes for which she is now is just on metformin. She also has hypertension, Graves' disease, hyperlipidemia, etc. In addition, she injured her right wrist when a gentleman at work, a patient, twisted her right wrist. She had to have a tendon release, and after the operation with ongoing pain, she hadto undergo a nerve block. Past Medical History Type 2 diabetes. Rheumatoid arthritis. Hypertension. Hyperlipidemia. Hyperthyroidism and Graves' disease. Restless leg syndrome. Asthma. Vitamin D deficiency. Depression and anxiety. Past Surgical History Status post 2 pregnancies. Status post tubal ligation. Status post surgery on right wrist 8-9 years ago. Medications Medications 06/02/18 1028 Medication Sig Taking? amitriptyline (ELAVIL) 100 mg Tablet Take 1 tablet by mouth daily. Yes ONETOUCH ULTRA BLUE TEST STRIP Strip as needed. Yes ONETOUCH ULTRA2 Kit as needed. Yes clonazePAM (KLONOPIN) 0.125 mg Tablet, Rapid Dissolve Take 1 tablet by mouth daily. Yes lovastatin (MEVACOR) 10 mg Tablet Take 1 tablet by mouth daily. Yes valsartan (DIOVAN) 80 mg Tablet Take 1 tablet by mouth daily. Yes cloNIDine (CATAPRES) 0.1 mg Tablet Take 1 tablet by mouth daily. Yes lamoTRIgine (LAMICTAL) 100 mg Tablet Take 1 tablet by mouth 2 times daily. In am Yes lamoTRIgine (LAMICTAL) 25 mg Tablet Take 25 mg by mouth every evening. Yes cholecalciferol, Vitamin D3, (CHOLECALCIFEROL, VITAMIN D3,) 2,000 unit Capsule Take 2,000 Units by mouth daily. Yes magnesium 250 mg Tablet Take 250 mg by mouth daily. Yes Adalimumab 40 mg/0.8 mL Pen Injector Kit Inject subcutaneously every 14 days. Yes metFORMIN (GLUCOPHAGE) 500 mg Tablet Take 500 mg by mouth daily. Yes cloNIDine (CATAPRES) 0.2 mg tablet Take 0.2 mg by mouth 3 times daily. Yes Social History She has just gone through a divorce. She just bought her own house. Previously she had been living with her brother, who has alcohol problems. 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 Unfortunately, she smokes a pack of cigarettes a day. She was interested in trying to quit. She has tried nicotine gum, buthas not tried Wellbutrin or Chantix. She has 2 children, ages 15 and 16. She does not drink alcohol. She does not use drugs. Family History Her mother from COPD. She also had spondylitis. Her father, who accompanied her to the visit, is 72 and has had CVAs. He was a smoker, but stopped many years ago. He has an alcohol problem and he readily admits that. Her brother has alcohol abuse and depression. Her aunt on the father'sside has stroke and diabetes. Her aunt on the maternal side has MS. Her 15-year-old daughter has asthma and ADHD. Her 16-year-old son is in good health. Review of Systems Positive for her needle phobia, large fluctuations in weight related to her thyroid status, anxietythat seems to be in better control now that she has gone through her divorce. Morning stiffness lasting hours. Ongoing problems with her hands, wrists, shoulders, knees, and distal feet. Otherwise, the rheumatology, cardiology, pulmonary, GI, , neurology, dermatology, and hematology review of systems is negative or non-contributory. Physical Exam: She looks well and healthy, despite her many medical problems. She is accompanied byher father, who is very supportive. Blood pressure 119/71, pulse (!) 109, temperature 36.7 ??C (98.1 ??F), height 157.5 cm (5' 2), weight 65.8 kg (145 lb), SpO2 99 %. Skin: Clear. HEENT: PERRL, EOM+, no eye inflammation, no oral ulcers, good moisture. Neck: Supple. No lymphadenopathy or thyromegaly. Lungs: Clear. Heart: Regular rhythm and rate without murmur, gallop, or rub. Abdomen: Benign. No masses, tenderness, or organomegaly. Extremities: No edema. Good distal pulses. Musculoskeletal: She has obvious synovitis in PIPs 2 and 3, and particularly MCPs 2 and 3 on the right. Her first MCP is also involved. All these joints are tender. On the left side, the findings arenot as dramatic but similar. Notably, she has difficulty flexing at the second PIP and DIP joints. One can flex them passively, but that produces pain in the joints. I think this is a tendon issue. She has tendon thickening at the level of the A1 kat on the palmar aspect of MCP #2 bilaterally. She is not experiencing triggering. Her right wrist has obvious swelling and inflammation over the ulnar-carpal joint with soft tissue, spongy prominence at the ulnar styloid. On the left wrist, she has an obvious cystic mass over the carpus which could be a ganglion, but probably represents true synovitis. She has mildly diminished range of motion in both wrists, right worse than left where she had the surgery. Her elbows move well, but she has a definite rheumatoid nodule on the right olecranon. Her shoulders have pain on range of motion bilaterally with some crepitance. Neck motion is okay. Her hips have mildly diminished range of motion bilaterally and range of motion is somewhat painful,although she localizes the pain out to the trochanteric bursa area. Her knees are cool. There may be small bilateral effusions. The knees are not obviously inflamed. Range of motion is painful bilaterally and there is mild crepitance bilaterally. Ankles are fine. She has synovial thickening in virtu ally all her MTPs and she is tender to squeeze there. She may have a rheumatoid nodule versus a bunionette on the left. She has a bunion on the left. She has similar but less dramatic findings at theright first and fifth MTPs. Neuro: 5/5 proximal muscle strength in the upper and lower extremities. DTRs 2+ and symmetrical. Toes downgoing. Negative Romberg. Assessment & Plan: We had a long discussion about her situation, but basically she is on a hostof medications for multiple medical issues. She has already had a dramatic hepatitis related to thefirst doses of methotrexate. I am reluctant to put her on another potentially hepatotoxic drug likeArava which has a much longer half-life than methotrexate and would be difficult to clear her system should she get into trouble. We could consider another TNF inhibitor like Enbrel or possibly Remicade. However the Humira has been a good drug for her, but just does not control things completely asis obvious by her history and by her exam today, where she has evidence of gross synovitis despite just receiving a recent Humira injection. At the end of the day, we decided to see if her insurance will cover Rituxan. In the meantime, she can continue the Humira until we get a decision. We will try and do the first fusions down here, but if there is a big delay, hopefully we can get them done [facility]. Today we will go ahead and check lab work and also obtain x-rays of her hands looking for evidence of erosive disease. The rest of the plan is as per below. She understood. Follow-up in 6 months, but we will stay in touch. We gave the patient the following recommendations: Patient Instructions Get labs and x-rays today at 3L. Call or myDH for results if you don't hear from us by next week. Further recommendations based on test results. We'll start prior authorization process for Rituxan. Read about the medicine on the web ([place]) Continue Humira for now. Follow up in 6 months. Call if problems or concerns. Orders Placed This Encounter Procedures ??? XR Hands Min 3 views Bilat ??? CBC (with Diff) ??? Comprehensive metabolic panel (non-fasting) ??? Sedimentation rate ??? CRP, acute inflammation ??? Rheumatoid factor, quant ??? Cyclic Citrullinated Peptide ??? QuantiFERON-TB Gold ??? Hepatitis B Core Antibody, Total ??? Hepatitis B Surface Antibody ??? Hepatitis B Surface Antigen ??? Hemogram ??? Differential, Automated ??? Auth Request for Infusion Medication Visit Diagnoses: 1. Rheumatoid arthritis involving multiple sites with positive rheumatoid factor 2. High risk medication use 3. Other secondary osteoarthritis of multiple sites 4. Cigarette smoker 5. Graves disease Results for FABIAN MANDUJANO ( ) Ref. Range 06/02/2018 12:05 WBC Latest Ref Range: 4.0 - 9.5 x10(3)/mcL 13.4 (H) RBC Latest Ref Range: 4.00 - 5.21 x10(6)/mcL 4.73 Hemoglobin Latest Ref Range: 11.7 - 15.5 gm/dL 14.8 Hematocrit Latest Ref Range: 35.7 - 45.8 % 44.1 MCV Latest Ref Range: 82.6 - 94.4 fL 93.2 MCH Latest Ref Range: 27.1 - 32.0 pg 31.3 MCHC Latest Ref Range: 31.7 - 35.0 gm/dL 33.6 RDWSD Latest Ref Range: 37.0 - 46.0 fL 40.5 RDWCV Latest Ref Range: 11.5 - 14.1 % 11.6 Platelets Latest Ref Range: 145 - 357 x10(3)/mcL 427 (H) MPV Latest Ref Range: 7.6 - 12.9 fL 9.1 nRBC % Auto Latest Units: % 0.0 nRBC Abs Auto Latest Ref Range: 0.000 - 0.000 x10(3)/mcL 0.000 Neutr Abs (ANC) Latest Ref Range: 1.70 - 6.10 x10(3)/mcL 8.46 (H) Neutrophils % Latest Units: % 63.5 Immature Gran % Latest Units: % 0.30 Lymphocytes % Latest Units: % 25.5 Monocytes % Latest Units: % 4.7 Eosinophils % Latest Units: % 4.9 Basophils % Latest Units: % 1.1 Yanni Gran Abs Latest Ref Range: 0.00 - 0.04 x10(3)/mcL 0.04 Lymphocytes Abs Latest Ref Range: 0.9 - 3.2 x10(3)/mcL 3.4 (H) Monocyte Abs Latest Ref Range: 0.3 - 0.9 x10(3)/mcL 0.6 Eosinophils Abs Latest Ref Range: 0.0 - 0.4 x10(3)/mcL 0.7 (H) Basophils Abs Latest Ref Range: 0.0 - 0.1 x10(3)/mcL 0.2 (H) Sed Rate Latest Ref Range: 0 - 20 mm/hr 18 Sodium Latest Ref Range: 135 - 145 mmol/L 136 Potassium Latest Ref Range: 3.5 - 5.0 mmol/L 4.3 Chloride Latest Ref Range: 98 - 107 mmol/L 97 (L) CO2 Latest Ref Range: 22 - 31 mmol/L 23 Anion Gap Latest Ref Range: 5 - 15 mmol/L 16 (H) BUN Latest Ref Range: 8 - 18 mg/dL 6 (L) Creatinine Latest Ref Range: 0.70 - 1.20 mg/dL 0.76 eGFR Latest Ref Range: >=60 mL/min/1.73 m?? 101 eGFR Latest Ref Range: >=60 mL/min/1.73 m?? 117 Glucose Lvl Latest Ref Range: 65 - 199 mg/dL 94 Calcium Latest Ref Range: 8.5 - 10.5 mg/dL 9.4 Total Protein Latest Ref Range: 6.1 - 8.0 gm/dL 8.3 (H) Albumin Latest Ref Range: 3.2 - 5.2 gm/dL 4.2 Total Bilirubin Latest Ref Range: 0.2 - 1.3 mg/dL 0.3 Alk Phos Latest Ref Range: 40 - 104 unit/L 154 (H) AST Latest Ref Range: 0 - 30 unit/L 14 ALT Latest Ref Range: 0 - 30 unit/L 16 Anti-Cyc Cit Peptide Latest Ref Range: <=4.9 unit/mL 123.2 (H) RF Latest Ref Range: <=14 IU/mL 165 (H) CRP Latest Ref Range: <=4.9 mg/L 3.0 HepB Surface Ab Quant Latest Units: IU/L 641.9 HepB Surface Ab Unknown Positive HepB Surface Ag Latest Ref Range: Negative Negative Hep B Core Ab Latest Ref Range: Negative Negative EXAMINATION: XR HANDS MIN 3 VIEWS BILAT CLINICAL HISTORY: RA. deformities, especially 2,3 digits, wrists. Erosions? TECHNIQUE: PA, oblique, lateral, and ball-catcher's views of bilateral hands. COMPARISON: Left hand radiographs 03/30/2017. Right wrist radiographs 06/09/2017. Bilateral hand radiographs 05/07/2015. ?? FINDINGS: No focal soft tissue swelling. No soft tissue calcification. Joint spaces are relatively well-preserved. No definite osseous erosions. There is a rounded lucency in the head of the thumb metacarpal and head of the third metacarpal, new since 2014, which could represent subchondral cysts or an osseous erosions. ?? IMPRESSION 1. No definite osseous erosions. Rounded lucencies in the head of the first and third metacarpals are new since 2014 and could represent subchondral cysts or osseous erosions. ?? 2. Otherwise, joint spaces are relatively well-preserved. ?? documented in this encounter Plan of Treatment Scheduled Referrals Name Type Priority Associated Diagnoses Order Schedule Auth Request for Infusion Medication Outpatient Referral Routine Rheumatoid arthritis involving multiple sites with positive rheumatoid factor Ordered: 06/02/2018 documented as of this encounter Procedures Procedure Name Priority Date/Time Associated Diagnosis Comments CRP, ACUTE INFLAMMATION Routine 06/02/2018 12:05 PM EST Rheumatoid arthritis involving multiple sites with positive rheumatoid factor QUANTIFERON-TB GOLD Routine 06/02/2018 1 2:05 PM EST Rheumatoid arthritis involving multiple sites with positive rheumatoid factor High risk medication use ANTI-CYCLIC CITRULLINATED PEPTIDE AB Routine 06/02/2018 12:05 PM EST Rheumatoid arthritis involving multiple sites with positive rheumatoid factor HEMOGRAM Routine 06/02/2018 12:05 PM EST Rheumatoid arthritis involving multiple sites with positive rheumatoid factor High risk medication use DIFFERENTIAL, AUTOMATED Routine 06/02/2018 12:05 PM EST Rheumatoid arthritis involving multiple sites with positive rheumatoid factor High risk medication use HEPATITIS B CORE ANTIBODY, TOTAL Routine 06/02/2018 12:05 PM EST High risk medication use HEPATITIS B SURFACE ANTIBODY Routine 06/02/2018 12:05 PM EST High risk medication use HEPATITIS B SURFACE ANTIGEN Routine 06/02/2018 12:05 PM EST High risk medication use SEDIMENTATION RATE Routine 06/02/2018 12 :05 PM EST Rheumatoid arthritis involving multiple sites with positive rheumatoid factor CBC (WITH DIFF) Routine 06/02/2018 12:05 PM EST Rheumatoid arthritis involving multiple sites with positive rheumatoid factor High risk medication use RHEUMATOID FACTOR, QUANT Routine 06/02/2018 12:05 PM EST Rheumatoid arthritis involving multiple sites with positive rheumatoid factor COMPREHENSIVE METABOLIC PANEL (NON-FASTING) Routine 06/02/2018 12:05 PM EST Rheumatoid arthritis involving multiple sites with positive rheumatoid factor High risk medication use documented in this encounter Results * (ABNORMAL) Differential, Automated (06/02/2018 12:05 PM EST) Neutrophils % 63.5 % [facility] Neutr Abs (ANC) 8.46(H) 1.70 - 6.10 x10(3)/[facility] Lymphocytes % 25.5 % [facility] Lymphocytes Abs 3.4(H) 0.9 - 3.2 x10(3)/[facility] Monocytes % 4.7 % [facility] Monocyte Abs 0.6 0.3 - 0.9 x10(3)/[facility] Eosinophils % 4.9 % [facility] Eosinophils Abs 0.7(H) 0.0 - 0.4 x10(3)/[facility] Basophils % 1.1 % [facility] Basophils Abs 0.2(H) 0.0 - 0.1 x10(3)/[facility] Immature Gran % 0.30 % [facility] Comment: Immature granulocytes(IG's)percentage and absolute count will include metamyelocytes, myelocytes, and promyelocytes. Blood smears from CBCs yielding IG's will be scanned manually for concordance. If this scan disagrees with the automated IG or if promyelocytes are noted, a manual differential will be performed. Yanni Gran Abs 0.04 0.00 - 0.04 x10(3)/[facility] Blood specimen (specimen) 06/02/2018 12:05 PM EST 06/02/2018 12:09 PM EST Narrative Resulting Agency Comment Spec In Lab Zak Lee MD HEMATOLOGY ORDERA BLES [facility] [place] [address] * (ABNORMAL) Hemogram (06/02/2018 12:05 PM EST) WBC 13.4(H) 4.0 - 9.5 x10(3)/[facility] RBC 4.73 4.00 - 5.21 x10(6)/[facility] Hemoglobin 14.8 11.7 - 15.5 gm/dL [facility] Hematocrit 44.1 35.7 - 45.8 % [facility] MCV 93.2 82.6 - 94.4 fL [facility] MCH 31.3 27.1 - 32.0 pg [facility] MCHC 33.6 31.7 - 35.0 gm/dL [facility] Platelets 427(H) 145 - 357 x10(3)/[facility] RDWSD 40.5 37.0 - 46.0 fL [facility] RDWCV 11.6 11.5 - 14.1 % [facility] MPV 9.1 7.6 - 12.9 fL [facility] nRBC % Auto 0.0 % [facility] nRBC Abs Auto 0.000 0.000 - 0.000 x10(3)/[facility] Blood specimen (specimen) 06/02/2018 12:05 PM EST 06/02/2018 12:09 PM EST Narrative Resulting Agency Comment Spec In Lab Zak Lee MD HEMATOLOGY ORDERA BLES Performing Organization Address City/[facility]/ZIP Co de Phone Number [facility] [place] [address] * Hepatitis B Surface Antigen (06/02/2018 12:05 PM EST) HepB Surface Ag Negative Negative [facility] Blood specimen (specimen) 06/02/2018 12:05 PM EST 06/02/2018 12:09 PM EST Narrative Resulting Agency Comment Spec In Lab Zak Lee MD CHEMISTRY ORDERAB LES Performing Organization Address City/[facility]/ZIP Co de Phone Number [facility] [place] [address] * Hepatitis B Surface Antibody (06/02/2018 12:05 PM EST) HepB Surface Ab Quant 641.9 IU/L [facility] Comment: HepB Surface Ab Quant: Unvaccinated: < 8.5 IU/L Vaccinated: > 11.5 IU/L HepB Surface Ab Positive [facility] Comment: Patient is considered to be immune to HBV infection. Expected Results: Vaccinated: Positive Unvaccinated: Negative Blood specimen (specimen) 06/02/2018 12:05 PM EST 06/02/2018 12:09 PM EST Narrative Resulting Agency Comment Spec In Lab Zak Lee MD IMMUNOLOGY ORDERA BLES Performing Organization Address City/[facility]/ZIP Co de Phone Number [facility] [place] [address] * Hepatitis B Core Antibody, Total (06/02/2018 12:05 PM EST) Pathologist [facility] Hep B Core Ab Negative Negative [facility] Blood specimen (specimen) 06/02/2018 12:05 PM EST 06/02/2018 12:09 PM EST Narrative Resulting Agency Comment Spec In Lab Zak Lee MD CHEMISTRY ORDERAB LES Performing Organization Address City/[facility]/ZIP Co de Phone Number [facility] [place] [address] * QuantiFERON-TB Gold (06/02/2018 12:05 PM EST) QFT Nil 0.020 IU/mL [facility] QFT TB Ag1-Nil 0.020 IU/mL [facility] QFT TB Ag2-Nil 0.010 IU/mL [facility] QFT Mitogen-Nil >10.000 IU/mL [facility] Quantiferon TB Negative Negative [facility] Quantiferon TB Interp M. tuberculosis infection NOT likely A negative specimen should have a TB1 Ag minus Nil value and TB2 Ag minus Nil value of less than 0.35 IU/mL OR a TB1 Ag minus Nil or TB2 Ag minus Nil value greater than or equal to 0.35 IU/mL AND a TB Ag minus Nil value from the same tube of less than 25% of the Nil value. A negative specimen must also have a mitogen minus Nil value greater than or equal to 0.5 IU/mL. A negative QFT-Plus result does not preclude the possibility of M. tuberculosis infection. False negative results can occur due to stage of infection (specimen obtained prior to the development of immune response), co-morbid conditions which affect immune function, or other immunological factors. [facility] Comment: The performance of the QFT-Plus assay has not been extensively evaluated with specimens from the following individuals: Individuals who have impaired or altered immune functions, such as those who have HIV infection or AIDS, those who have transplantation managed with immunosuppressive treatment or others who receive immunosuppressive drugs (e.g., corticosteroids, methotrexate, azathioprine, cancer chemotherapy), those who have other clinical conditions, such as diabetes, silicosis, chronic renal failure, and hematological disorders (e.g., leukemia and lymphomas), or those with other specific malignancies (e.g., carcinoma of the head or neck and lung). Individuals younger than age 17 years women. Diagnosis of, or the exclusion of tuberculosis disease, and assessment of Latent Tuberculosis Infection (LTBI) requires a combination of epidemiological, historical, Medical and diagnostic findings that should be taken into account when interpreting QFT-Plus results. Blood specimen (specimen) 06/02/2018 12:05 PM EST 06/03/2018 7:39 AM EST Narrative Resulting Agency Comment Spec In Lab Zak Lee MD CHEMISTRY ORDERAB LES [facility] [place] [address] * (ABNORMAL) Cyclic Citrullinated Peptide (06/02/2018 12:05 PM EST) Anti-Cyc Cit Peptide 123.2(H) <=4.9 unit/mL [facility] Comment: An updated CCP assay reagent was implemented 4/13/17. Please note the modified reference interval. Blood specimen (specimen) 06/02/2018 12:05 PM EST 06/02/2018 12:09 PM EST Narrative Resulting Agency Comment Spec In Lab Zak Lee MD CHEMISTRY ORDERAB LES Performing Organization Address [facility] Co de Phone Number [facility] [place] [address] * (ABNORMAL) Rheumatoid factor, quant (06/02/2018 12:05 PM EST) RF 165(H) <=14 IU/mL [facility] Blood specimen (specimen) 06/02/2018 12:05 PM EST 06/02/2018 12:09 PM EST Narrative Resulting Agency Comment Spec In Lab Zak Lee MD IMMUNOLOGY ORDERA BLES Performing Organization Address [facility] Co de Phone Number [facility] [place] [address] * CRP, acute inflammation (06/02/2018 12:05 PM EST) CRP 3.0 <=4.9 mg/L [facility] Blood specimen (specimen) 06/02/2018 12:05 PM EST 06/02/2018 12:09 PM EST Narrative Resulting Agency Comment Spec In Lab Zak Lee MD CHEMISTRY ORDERAB LES Performing Organization Address [facility] Co de Phone Number [facility] [place] [address] * Sedimentation rate (06/02/2018 12:05 PM EST) Sed Rate 18 0 - 20 mm/hr [facility] Blood specimen (specimen) 06/02/2018 12:05 PM EST 06/02/2018 12:09 PM EST Narrative Resulting Agency Comment Spec In Lab Zak Lee MD HEMATOLOGY ORDERA BLES [facility] [place] [address] * (ABNORMAL) Comprehensive metabolic panel (non-fasting) (06/02/2018 12:05 PM EST) Glucose Lvl 94 65 - 199 mg/dL [facility] Comment:Diabetes: >=200 mg/d L plus symptoms BUN 6(L) 8 - 18 mg/dL [facility] Creatinine 0.76 0.70 - 1.20 mg/dL [facility] Sodium 136 135 - 145 mmol/L [facility] Potassium 4.3 3.5 - 5.0 mmol/L [facility] Comment: Please note: ??Patients with WBC >100,000 may have falsely elevated Potassium levels. ??For accurate Potassium quantification in these patients send serum separator tube (gold top) for subsequent determinations. ??Contact the Clinical Chemistry Laboratory if there are any questions. Chloride 97(L) 98 - 107 mmol/L [facility] CO2 23 22 - 31 mmol/L [facility] Anion Gap 16(H) 5 - 15 mmol/L [facility] Calcium 9.4 8.5 - 10.5 mg/dL [facility] Total Protein 8.3(H) 6.1 - 8.0 gm/dL [facility] Albumin 4.2 3.2 - 5.2 gm/dL [facility] AST 14 0 - 30 unit/L [facility] ALT 16 0 - 30 unit/L [facility] Alk Phos 154(H) 40 - 104 unit/L [facility] Total Bilirubin 0.3 0.2 - 1.3 mg/dL [facility] Estimated GFR 101 >=60 mL/min/1. 73 m?? [facility] Comment: The eGFR was calculated using the CKD-EPI equation. As with all creatinine based estimates of kidney function, eGFR values calculated with the CKD-EPI equation are not accurate in patients with acute kidney failure, extremes of body mass or the acutely ill. http://[employer]/[facility] eGFR 117 >=60 mL/min/1. 73 m?? [facility] Comment: The eGFR was calculated using the CKD-EPI equation. As with all creatinine based estimates of kidney function, eGFR values calculated with the CKD-EPI equation are not accurate in patients with acute kidney failure, extremes of body mass or the acutely ill. http://[employer]/[facility] Blood specimen (specimen) 06/02/2018 12:05 PM EST 06/02/2018 12:09 PM EST Narrative Resulting Agency Comment Spec In Lab Zak Lee MD CHEMISTRY ORDERAB LES [facility] [place] [address] * XR Hands Min 3 views Bilat (06/02/2018 11:48 AM EST) Anatomical Region Laterality Modality Hand Bilateral Digital Radiogra phy Impressions 06/02/2018 2:04 PM EST 1. ??No definite osseous erosions. Rounded lucencies in the head of the first and third metacarpals are new since 2014 and could represent subchondral cysts or osseous erosions. 2. ??Otherwise, joint spaces are relatively well-preserved. Narrative 06/02/2018 2:04 PM EST EXAMINATION: XR HANDS MIN 3 VIEWS BILAT CLINICAL HISTORY: RA. deformities, especially 2,3 digits, wrists. Erosions? TECHNIQUE: PA, oblique, lateral, and ball-catcher's views of bilateral hands. COMPARISON: Left hand radiographs 03/30/2017. Right wrist radiographs 06/09/2017. Bilateral hand radiographs 05/07/2015. FINDINGS: No focal soft tissue swelling. No soft tissue calcification. Joint spaces are relatively well-preserved. No definite osseous erosions. There is a rounded lucency in the head of the thumb metacarpal and head of the third metacarpal, new since 2014, which could represent subchondral cysts or an osseous erosions. Procedure Note Do Rincon MD - 06/02/2018 EXAMINATION: XR HANDS MIN 3 VIEWS BILAT CLINICAL HISTORY: RA. deformities, especially 2,3 digits, wrists.Erosions? TECHNIQUE: PA, oblique, lateral, and ball-catcher's views of bilateral hands. COMPARISON: Left hand radiographs 03/30/2017. Right wrist radiographs 06/09/2017.Bilateral hand radiographs 05/07/2015. FINDINGS: No focal soft tissue swelling. No soft tissue calcification. Joint spacesare relatively well-preserved. No definite osseous erosions. There is arounded lucency in the head of the thumb metacarpal and head of the thirdmetacarpal, new since 2014, which could represent subchondral cysts or an osseouserosions. IMPRESSION 1. No definite osseous erosions. Rounded lucencies in the head of thefirst and third metacarpals are new since 2014 and could represent subchondral cystsor osseous erosions. 2. Otherwise, joint spaces are relatively well-preserved. Zak Lee MD IMG DX ORDERABLES documented in this encounter Visit Diagnoses Diagnosis Rheumatoid arthritis involving multiple sites with positive rheumatoid factor High risk medication use Encounter for long-term (current) use of other medications Other secondary osteoarthritis of multiple sites Cigarette smoker Tobacco use disorder Graves disease Toxic diffuse goiter without mention of thyrotoxic crisis or storm Rheumatoid arthritis involving multiple sites with positive rheumatoid factor documented in this encounter Care Teams Medication Administration Professional Relationship Specialty Start Date End Date Yanique Mandujano APRN [address] [place] [phone] PCP - General 04/23/10 10/16/19 documented as of this encounter
--- OUTSIDE RECORDS SUMMARY | 2023-12-11 00:12 | XMS_ITS | Encounter Summary ---
[place] [address] Care Team Providers Care Bullet Slugs Inspector Name Role Phone Yanique Mandujano APRN Primary Care Provider [phone]- [phone] Encounter Details Date Type Department Care Team (Late st Contact Info) Description 06/06/2019 Specialty [place] [phone] Miguel Parra Social History Tobacco Use Types Packs/Day Years [...] on filedocumented in this encounter Care Teams Bullet Slugs Inspector Relationship Specialty Start Date End Date Yanique Mandujano APRN [address] [place] [phone] PCP - General 04/23/10 10/16/19 documented as of this encounter
--- OUTSIDE RECORDS SUMMARY | 2023-12-11 00:12 | XMS_ITS | Encounter Summary ---
Author Organization [facility] [place] [address] Care Team Providers Care Surveillance Observer Name Role Phone Yanique Mandujano APRN Primary Care Provider [phone]- [phone] Encounter Details Date Type Department Care Team (Late st Contact Info) Description 07/18/2016 Tele[place] [phone] Nemo Quiñonez LPN Social History Tobacco Use Types Packs/Day Years Used Date Smoking Tobacco: Every Day Cigarettes Smokeless Tobacco: Never Sex and Gender Information Value Date Recorded Sex Assigned at Not on file Gender Identity Not on file Sexual Orientation Not on file documented as of this encounter Miscellaneous Notes * Telephone Encounter - Nemo Quiñonez LPN - 07/18/2016 11:06 AM EST Images from the original note were not included. Liset Hager?? Female, 35 y.o., 1980 Weight: 65.1 kg (143 lb 9.6 oz) Home: PCP: Yanique Mandujano APRN myD-H: Active Next Appt: None ?? Message Received: Today ? Shruthi Mai MD Isham, Gail, LPN ? Caller: Unspecified (Today, ??9:21 AM) ? Sent a letter to this patient as I could not contact her at numbers provided including emergencycontact. ? Previous Messages * Telephone Encounter - Nemo Quiñonez LPN - 07/18/2016 9:21 AM EST Call from patient asking for results of labs from 07/15/16. documented in this encounter Plan of Treatment Not on file documented as of this encounter Visit Diagnoses Not on filedocumented in this encounter Care Teams Surveillance Observer Relationship Specialty Start Date End Date Yanique Mandujano, MARIAH [address] [place] [phone] PCP - General 04/23/10 10/16/19 documented as of this encounter
--- OUTSIDE RECORDS SUMMARY | 2023-12-11 00:12 | XMS_ITS | Encounter Summary ---
[place] [address] Care Team Providers Care Wan Support Specialist Name Role Phone Yanique Mandujano APRN Primary Care Provider [phone]- [phone] Encounter Details Date Type Department Care Team (Late st Contact Info) Description 09/30/2019 Specialty [place] [phone] Maude Byrd, HOSPITAL EDUCATOR Social History Tobacco Use Types Packs/Day Years [...] on filedocumented in this encounter Care Teams Wan Support Specialist Relationship Specialty Start Date End Date Yanique Mandujano APRN [address] [place] [phone] PCP - General 04/23/10 10/16/19 documented as of this encounter
--- OUTSIDE RECORDS SUMMARY | 2023-12-11 00:12 | XMS_ITS | Encounter Summary ---
Author Organization [facility] Address [facility] [place] [address] Care Team Providers Care Contact Center Representative Name Role Phone Yanique Mandujano MARIAH Primary Care Provider [phone]- [phone] Reason for Visit * Reason Comments IV Medication * High Dollar Medication (Routine) - Closed Specialty Diagnoses / Procedures Referred By Contac t Referred To Contact Med Infusion Diagnoses Rheumatoid arthritis with rheumatoid factor of multiple sites without organ or systems involvement Day 1 RITUXAN:Lee EDH Procedures TC RITUXIMAB, 10MG INJECTION RITUXAN Zak Lee MD [facility] [place] [address] [facility] Med Infusion [address] [place] [phone] Referral ID Status Reason Start Date Expiration Date Visits Re quested Visits Authorized [id number] Closed 12/14/2018 12/30/2018 1 1 Encounter Details Date Type Department Care Team (Latest Contact Info) Description 12/14/2018 8:17 AM EDT - 12/14/2018 11:59 PM EDT Hospital Encounter [place] [phone] Rheumatoid arthritis involving multiple sites [...] Sign Reading Time Taken Comments Blood Pressure 122/83 12/14/2018 8:25 AM EDT Pulse 86 12/14/2018 8:25 AM EDT Temperature 36.6 ??C (97.9 ??F) 12/14/2018 8:25 AM ED T Respiratory Rate 18 12/14/2018 8:25 AM EDT Oxygen Saturation 91% 12/14/2018 8:25 AM EDT Inhaled Oxygen Concentration - - Weight - - Height - - Body Mass Index - - documented in this encounter Medications at Time of Discharge Medication Sig Dispensed Refills Start Date End Date albuterol (PROVENTIL) 2.5 mg /3 mL (0.083 %) Solution for Nebulization prn 09/29/2018 amitriptyline (ELAVIL) 100 mg Tablet Take 1 tablet by mouth daily. 05/13/2018 [employer] ULTRA BLUE TEST STRIP Strip as needed. 01/25/2018 [employer] ULTRA2 Kit as needed. 01/25/2018 lamoTRIgine (LAMICTAL) [...] as of this encounter Progress Notes * Cyndy Pendleton RN - 12/14/2018 9:46 AM EDT INFUSION THERAPY ADMINISTRATION NOTES DIAGNOSIS: The encounter diagnosis was Rheumatoid arthritis involving multiple sites with positive rheumatoid factor. REASON FOR VISIT: Rituxan (Day 1) SUBJECTIVE: Offers no complaints. OBJECTIVE: Last dose received on 07/01/18 VITALS: BP 122/83 (Patient Position: Sitting) Pulse 86 Temp 36.6 ??C (97.9 ??F) (Oral) Resp 18 VsS451% IF PAIN >5, INTERVENTION AND EFFECTIVENESS: N/A IV ACCESS: Peripheral IV Line - Single Lumen 12/14/18 0905 basilic vein (medial side of arm), right 24 gauge;3/4 in length (Active) Indication/Daily Review of Necessity medication therapy intermittent 12/14/2018 9:10 AM Site Preparation/Maintenance dressing: dry and intact 12/14/2018 9:10 AM Patency/Maintenance flushed without difficulty;blood return, able to obtain 12/14/2018 9:10 AM Phlebitis 0-->no symptoms 12/14/2018 9:10 AM ANTIEMETICS/PREMEDS, DOSE, ROUTE, START TIME, STOP TIME Methylprednisolone 50 mg IV @ 0910 Benadryl 25 mg PO @ 0840 Patient identification and orders checked against actual dose given at bedside by Roel Pendleton RN. TREATMENT/BLOOD/OTHER, DOSE, ROUTE, START TIME, STOP TIME ??? diphenhydrAMINE 25 mg Oral Once ### ??? methylPREDNISolone 50 mg Intravenous Once ### ??? riTUXimab (RITUXAN) infusion 1,000 mg Intravenous Once ### Administration times: See JUL 31 schedule used. REACTIONS (DESCRIPTION, TIME, INTERVENTION AND EFFECTIVENESS) None. ASSESSMENT: Tolerated infusion well. PLAN: Return to clinic in 2 weeks. documented in this encounter Plan of Treatment [...] 25 mg, Oral, ONCE, 1 dose, On Thu12/14/18 at 0845, FIRST INFUSION Upon arrival prior to rituximab, Outpatient Transfusion, Routine Given 12/14/2018 8:40 AM EDT 25 mg methylPREDNISolone sodium succinate (PF) (SOLU-Medrol) injection 50 mg 50 mg, Intravenous, ONCE, 1 dose, On Thu12/14/18 at 0845, FIRST INFUSION Upon arrival prior to rituximab., Outpatient Transfusion Given 12/14/2018 9:10 AM EDT 50 mg riTUXimab (RITUXAN) 1,000 mg in sodium chloride 0.9% 500 mL infusion 1,000 mg, Intravenous, ONCE, 1 dose, On Thu12/14/18 at 0845, FIRST INFUSION Administer intravenously at an initial rate [...] the previous rate., Outpatient Transfusion New Bag 12/14/2018 9:30 AM EDT 1,000 mg documented in this encounter Care Teams Contact Center Representative Relationship Specialty Start Date End Date Yanique Mandujano APRN [address] [place] [phone] PCP - General 04/23/10 10/16/19 documented as of this encounter
--- OUTSIDE RECORDS SUMMARY | 2023-12-11 00:12 | XMS_ITS | Clinical Summary ---
Author Organization [facility] Address [address] [place] [address] Care Team Providers Care Associate Of Science In Nursing Name Role Phone Aneta Perez Primary Care Provider [phone] Social History Tobacco Use Types Packs/Day Years Used Date Smoking Tobacco: Never Assessed Interpersonal Safety Answer Date Record ed Physically Hurt Never 01/01/2020 Verbally Threaten Not on file 01/01/2020 Sex and Gender Information Value Date Recorded Sex Assigned at Not on file Gender Identity Not on file Sexual Orientation Not on file Plan of Treatment Health Maintenance Due Date Last Done Comments Hepatitis B Vaccine (1 of 3 - 19+ 3-dose series) 09/22 COVID-19 Vaccine ( season) 2023 Hepatitis C Screen Completed 07/31/2021 Procedures Procedure Name Priority Date/Time Associated Diagnosis Comments HEPATITIS C AB W REFLEX TO HCV RNA BY PCR Routine 07/31/2021 11:50 EST from Last 3 Months or Most Recently Relevant to Health Maintenance Results * HEPATITIS C AB W REFLEX TO HCV RNA BY PCR (07/31/2021 11:50 EST) Hep C Antibody Negative Negative 08/01/2021 10:07 EST [facility] Blood VENOUS BLOOD / Unknown 07/31/2021 11:50 EST 07/31/2021 21:30 EST Provider Outr Resulting Lab CHEMISTRY & BLOOD GAS ORDERABLES [facility] [address] [place] [address] from Last 3 Months or Most Recently Relevant to Health Maintenance Care Teams Associate Of Science In Nursing Relationship Specialty Start Date End Date Aneta Perez PA [address] [place] [phone] PCP - General 11/12/18
--- OUTSIDE RECORDS SUMMARY | 2023-12-11 00:12 | XMS_ITS | Encounter Summary ---
Author Organization Formerly [facility] Address [facility] [place] [address] Care Team Providers Care Manufacturing Technician Name Role Phone Yanique Mandujano MARIAH Primary Care Provider +1- [phone] Reason for Referral * Consultation (Routine) - Closed Specialty Diagnoses / Procedures Referred By Roberto palomares Referred To Contact Plastic Surgery Diagnoses Rheumatoid arthritis involving multiple sites with positive rheumatoid factor Tendon dysfunction Zak Lee MD [facility] [place] [address] Ulises Parry MD [facility] [place] [address] Referral ID Status Reason Start Date Expiration Date V isits Requested Visits Authorized [id number] Closed Consult, Test & Treat 09/30/2019 09/29/2020 1 1 Encounter Details Date Type Department Care Team (Late st Contact Info) Description 09/30/2019 1:30 PM EDT TH Visit (TeleHealth) [place] [address] Zak Lee MD [facility] [place] [address] Rheumatoid arthritis involving multiple sites with positive rheumatoid factor; Graves disease; High risk medication use; Tendon dysfunction Social History Tobacco Use Types Packs/Day Years Used Date Smoking Tobacco: Every Day Cigarettes Smokeless Tobacco: Never Sex and Gender Information Value Date Recorded Sex Assigned at Not on file Gender Identity Not on file Sexual Orientation Not on file documented as of this encounter Progress Notes * Zak Lee MD - 09/30/2019 1:30 PM EDT Rheumatology Clinic: Dr. Lee 09/30/2019 [id number] This is a TeleHealth phone visit for Liset Hager in follow-up of her seropositive rheumatoid arthritis. We have seen her twice, on 06/02/2018 and 11/30/2018. She had previously followed with Dr. Morgan in [place]. She had previously been on methotrexate and Humira, the former with elevated LFTs and the latter with suboptimal response. After reviewing options with her, we decided to go with Rituxan. The Rituxan turned out to be a great drug for her. Unfortunately she had to pay $12,000 for her first infusion. But since then apparently the insurance has covered most of the cost of her subsequent infusions. She had 2 cycles consisting of 2 infusions of Rituxan in June and then in November 2018. Again they both worked well. 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 She contacted us recently flaring and wondered what she shoulddo. We put in an order for another round of Rituxan and she is scheduled to receive her first infusion on 10/03/2019. She now has [facility] medical insurance. To tide her over to the infusions, shewants to go with naproxen 500 twice daily with meals, which has been very helpful for her in the past. Again she reminded me that she would like to avoid steroids during her Rituxan infusions, but would still like to receive Benadryl. We then talked about another problem. She has had 2 surgeries on her left index finger area for tendon problems. These were done in October and March by Dr. Delgado in [place]. The first one was complicated by the need to remove a lot of inflamed synovium. The second procedure in March was to try and correct some persistent problems with tendon motion. But unfortunately she has had ongoing problems there between the index finger and thumb and she wondered if she might get a second opinion from a surgeon here at [facility]. We then talked about the COVID-19 pandemic. 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 Fortunately nobody in that facility has, gotten sick. Her daughter goes back and forth between her home and that of her biological father. Unfortunately her 16-year-old was hospitalized at [facility] for a suicide attempt but she is doing much better now. Her ex- suffered a stroke in01/2019 and is paralyzed on the left side. This is despite the fact that he is only 54 years old. Medications 12/29/18 0845 Medication Sig Taking? albuterol (PROVENTIL) 2.5 mg /3 mL (0.083 %) Solution for Nebulization prn oxyCODONE-acetaminophen (PERCOCET) 5-325 mg Tablet as needed. clonazePAM (KLONOPIN) 0.5 mg Tablet Take 1/2 tablet nightly amitriptyline (ELAVIL) 100 mg Tablet Take 1 tablet by mouth daily. ONETOUCH ULTRA BLUE TEST STRIP Strip as needed. ONETOUCH ULTRA2 Kit as needed. clonazePAM (KLONOPIN) 0.125 mg Tablet, Rapid Dissolve Take 1 tablet by mouth daily. lovastatin (MEVACOR) 10 mg Tablet Take 1 tablet by mouth daily. valsartan (DIOVAN) 80 mg Tablet Take 1 tablet by mouth daily. cloNIDine (CATAPRES) 0.1 mg Tablet Take 1 tablet by mouth daily. lamoTRIgine (LAMICTAL) 100 mg Tablet Take 1 tablet by mouth 2 times daily. In am lamoTRIgine (LAMICTAL) 25 mg Tablet Take 50 mg by mouth every evening. cholecalciferol, Vitamin D3, (CHOLECALCIFEROL, VITAMIN D3,) 2,000 unit Capsule Take 2,000 Units by mouth daily. magnesium 250 mg Tablet Take 250 mg by mouth daily. Adalimumab 40 mg/0.8 mL Pen Injector Kit Inject subcutaneously every 14 days. metFORMIN (GLUCOPHAGE) 500 mg Tablet Take 500 mg by mouth daily. cloNIDine (CATAPRES) 0.2 mg tablet Take 0.2 mg by mouth 3 times daily. Physical Exam: Phone visit only. She sounds in general well and in good spirits. She is of course concerned about her family and the patients at [employer]. Assessment: Her rheumatoid is flaring, but that is not surprising since she is, several months pastwhen her next Rituxan cycle was due. We have already got that scheduled and she will get her first infusion within a few days. In the meantime we sent in a prescription for naproxen 500 mg twice daily to take with food. We will avoid giving her corticosteroids during her Rituxan infusion. We will refer her to Dr. Ulises Parry here in plastic surgery for a second opinion about what might be done to help with her ongoing problems with the left index finger. I will see her in follow-up in 6 months, hopefully [id number] as the pandemic quiets down. Visit Diagnoses: 1. Rheumatoid arthritis involving multiple sites with positive rheumatoid factor 2. Graves disease 3. High risk medication use 4. Tendon dysfunction Orders Placed This Encounter Procedures ??? Referral to Plastic Surgery Total phone time: 14 min, 51 sec. Total visit time: >25 min. Visit level: 69362. 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
--- OUTSIDE RECORDS SUMMARY | 2023-12-11 00:12 | XMS_ITS | Encounter Summary ---
Author Organization [facility]ly [facility] [place] [address] Care Team Providers Care Refractory Furnace Designer Name Role Phone Yanique Mandujano MARIAH Primary Care Provider [phone]- [phone] Reason for Visit * Reason Onset Date Comments Follow-up 12/09/2018 Encounter Details Date Type Department Care Team (Late st Contact Info) Description 12/09/2018 Telephone Rheumatology at [facility] [place] [phone] Juan Manuel Sapp RN Follow-up Social History Tobacco Use Types Packs/Day Years Used Date Smoking Tobacco: Every Day Cigarettes Smokeless Tobacco: Never Sex and Gender Information Value Date Recorded Sex Assigned at Not on file Gender Identity Not on file Sexual Orientation Not on file documented as of this encounter Miscellaneous Notes * Telephone Encounter - Juan Manuel Sapp RN - 12/09/2018 4:37 PM EDT Zak Lee MD sent to Juan Manuel Sapp RN Caller: Unspecified (Yesterday, ??4:52 PM) ?? No problem. CB Left message for Nurse Juarez that NSAID is ok for Liset Mcmillan. * Telephone Encounter - Juan Manuel Sapp RN - 12/09/2018 10:44 AM EDT Call received from Karen Jacome APRN at [facility] asking if there are any contraindications for prescribing an NSAID for Liset Mcmillan. RTC, spoke with nurse Juarez, and Liset Mcmillan had a Radical Left wrist flexor tenosynovectomy, Finger surgery, and CTR on 11/09/2018 and Orthopedic provider would like to give NSAID for pain. Advised I will check with Dr. Lee and call back. documented in this encounter Plan of Treatment Not on file documented as of this encounter Visit Diagnoses Not on filedocumented in this encounter Care Teams Refractory Furnace Designer Relationship Specialty Start Date End Date Yanique Mandujano APRN [address] [place] [phone] PCP - General 04/23/10 10/16/19 documented as of this encounter
--- OUTSIDE RECORDS SUMMARY | 2023-12-11 00:12 | XMS_ITS | Encounter Summary ---
Author Organization [facility] [place] [address] Care Team Providers Care Onion Farmer Name Role Phone Yanique Mandujano APRN Primary Care Provider +1- [phone] Reason for Visit * Reason Onset Date Comments Other 09/14/2019 Encounter Details Date Type Department Care Team (Late st Contact Info) Description 09/14/2019 [place] [phone] Momo Knight RN Other Social History Tobacco Use Types Packs/Day Years Used Date Smoking Tobacco: Every Day Cigarettes Smokeless Tobacco: Never Sex and Gender Information Value Date Recorded Sex Assigned at Not on file Gender Identity Not on file Sexual Orientation Not on file documented as of this encounter Miscellaneous Notes * Telephone Encounter - Momo Knight RN - 09/19/2019 9:11 AM EDT Images from the original note were not included. Zak Lee MD Gavalakis, Rory A, RN Caller: Unspecified (5 days ago, ??2:43 PM) ?? Ordered. * Telephone Encounter - Momo Knight RN - 09/15/2019 10:02 AM EDT Images from the original note were not included. Zak Lee MD Gavalakis, Rory A, RN Caller: Unspecified (Yesterday, ??2:43 PM) ?? Well, what she really needs is another round of Rituxan. She was due in Jun/Jul. Ask her if we can schedule that for her JENS. Did her insurance cover the first cycle well and was it helpful? We can do the 09/30/2019 appt with me by video or phone - that's no big deal. Patient amenable to infusion of Rituxan. Was helpful, insurance covered portion, not all though. She will await infusion appointment and contact clinic next week if she does not hear back. * Telephone Encounter - Momo Knight RN - 09/14/2019 4:49 PM EDT Patient calls clinic regarding appointment on 09/29. Hands are in pain. Swollen and hurt. Not red, not hot to touch. Only hands are bothersome. Tylenol does not help. Has not had infusion since November 2018. Was supposed to have appointment in June,, Rescheduled for September 29 in rheumatology. No fever or chills. No cough or sob. No c/p. No n/v. No gi or gu issues present. BS stable in the 200 and 300's, would like to avoid prednisone. Patient calls regarding 09/29 appointment, asks if that is still occurring. Advised patient to maintain appointment, may transition to appt, will have scheduling contact regarding. Patient also asks if any options are available for managing current hand issues, states prefers to avoid prednisone. Will seek advisement from clinic provider. documented in this encounter Plan of Treatment Not on file documented as of this encounter Visit Diagnoses Not on filedocumented in this encounter Care Teams Onion Farmer Relationship Specialty Start Date End Date Yanique Mandujano APRN [address] [place] [phone] PCP - General 04/23/10 10/16/19 documented as of this encounter
--- OUTSIDE RECORDS SUMMARY | 2023-12-11 00:12 | XMS_ITS | Encounter Summary ---
Author Organization Formerly [facility] Address [facility] [place] [address] Care Team Providers Care Bead Filler Name Role Phone Yanique Mandujano APRN Primary Care Provider +1- [phone] Encounter Details Date Type Department Care Team (Late st Contact Info) Description 06/02/2018 11:40 AM EST - 06/02/2018 11:59 PM EST Hospital Encounter XRay at [address] [place] [address] Zak Lee MD [facility] [place] [address] Rheumatoid arthritis involving multiple sites with positive rheumatoid factor Discharge Disposition: Home Social History Tobacco Use Types Packs/Day Years Used Date Smoking Tobacco: Every Day Cigarettes Smokeless Tobacco: Never Sex and Gender Information Value Date Recorded Sex Assigned at Not on file Gender Identity Not on file Sexual Orientation Not on file documented as of this encounter Medications at Time of Discharge [...] daily. 06/25/2022 documented as of this encounter Plan of Treatment Not on file documented as of this encounter Procedures Procedure Name Priority Date/Time Associated Diagnosis Comments XR HANDS MIN 3 VIEWS BILAT Routine 06/02/2018 11:48 AM EST Rheumatoid arthritis involving multiple sites with positive rheumatoid factor documented in this encounter Results * XR Hands Min 3 views Bilat [...] factor documented in this encounter Care Teams Bead Filler Relationship Specialty Start Date End Date Yanique Mandujano APRN [address] [place] [phone] PCP - General 04/23/10 10/16/19 documented as of this encounter
--- OUTSIDE RECORDS SUMMARY | 2023-12-11 00:12 | XMS_ITS | Encounter Summary ---
Author Organization Formerly [facility] Address [facility] [place] [address] Care Team Providers Care Towel Weaver Name Role Phone Yanique Mandujano MARIAH Primary Care Provider +1- [phone] Reason for Visit * High Dollar Medication (Routine) - Closed Specialty Diagnoses / Procedures Referred By Contdacia t Referred To Contact Med Infusion Diagnoses Rheumatoid arthritis involving multiple sites with positive rheumatoid factor Zak Lee MD [facility] [place] [address] [facility] Med Infusion [address] [place] [phone] Referral ID Status Reason Start Date Expiration Date V isits Requested Visits Authorized [id number] Closed Consult, Test & Treat 10/03/2019 10/01/2020 2 2 Encounter Details Date Type Department Care Team (Latest Contact Info) Description 10/03/2019 10:16 AM EDT - 10/03/2019 11:59 PM EDT Hospital Encounter [place] [phone] Rheumatoid arthritis involving multiple sites with positive [...] Reading Time Taken Comments Blood Pressure 120/65 10/03/2019 10:49 AM EDT Pulse 90 10/03/2019 10:49 AM EDT Temperature 36.2 ??C (97.2 ??F) 10/03/2019 10:49 AM E DT Respiratory Rate - - Oxygen Saturation 97% 10/03/2019 10:49 AM EDT Inhaled Oxygen Concentration - - Weight - - Height - - Body Mass Index - - documented in this encounter Medications at Time of Discharge Medication Sig Dispensed Refills Start Date End Date albuterol (PROVENTIL) 2.5 mg /3 mL (0.083 %) Solution for Nebulization prn 09/29/2018 amitriptyline (ELAVIL) 100 mg Tablet Take 1 tablet by mouth daily. 05/13/2018 [employer] ULTRA BLUE TEST STRIP Strip as needed. 01/25/2018 [employer] ULTRA2 Kit as needed. 01/25/2018 lamoTRIgine (LAMICTAL) 100 mg Tablet Take 200 mg by mouth 2 times daily. In am 04/28/2018 lamoTRIgine (LAMICTAL) 25 mg Tablet Take 50 mg by mouth every evening. 05/13/2018 metFORMIN (GLUCOPHAGE) 500 mg Tablet Take 500 mg by mouth 2 times daily (with meals). atorvastatin (Lipitor) 20 mg Tablet Take 40 mg by mouth daily. 09/27/2019 07/22/2022 naproxen (NAPROSYN) 500 mg Tablet Take 1 tablet by mouth 2 times daily (with meals). 60 tablet 12 09/30/2019 02/16/2020 oxyCODONE-acetaminoph en (PERCOCET) 5-325 mg Tablet as needed. 11/29/2018 [...] as of this encounter Progress Notes * Akanksha Lakhani RN - 10/03/2019 11:06 AM EDT INFUSION THERAPY ADMINISTRATION NOTES DIAGNOSIS: The encounter diagnosis was Rheumatoid arthritis involving multiple sites with positive rheumatoid factor. REASON FOR VISIT: Rituxan day # 1 SUBJECTIVE: offers no complaints. OBJECTIVE: Last dose received on 12/29/18 VITALS: BP 120/65 (BP Location (NBP): Right arm, Patient Position: Sitting, BP Cuff Sizes: Adult (25-34 cm)) Pulse 90 Temp 36.2 ??C (97.2 ??F) SpO2 97% IF PAIN >5, INTERVENTION AND EFFECTIVENESS: na IV ACCESS: Peripheral IV Line - Single Lumen 10/03/19 1055 basilic vein (medial side of arm), right 24 gauge;3/4 in length (Active) HYDRATION, RATE, START TIME, STOP TIME N/A ANTIEMETICS/PREMEDS, DOSE, ROUTE, START TIME, STOP TIME Methylprednisolone 16 mg PO-patient declined Benadryl 25 mg PO-1050 Patient identification and orders checked against actual dose given at bedside by Akanksha Lakhani RN TREATMENT/BLOOD/OTHER, DOSE, ROUTE, START TIME, STOP TIME Rituxan 1000 mg IV Administration times: see MAR 2nd schedule used REACTIONS (DESCRIPTION, TIME, INTERVENTION AND EFFECTIVENESS) None. ASSESSMENT: Tolerated infusion well. PLAN: Return to clinic in 2 weeks on 10/17/2019 Follow up per rheumatology clinic. documented in this encounter Plan of Treatment [...] 25 mg, Oral, ONCE, 1 dose, On 10/03/19 at 1045, FIRST INFUSION Upon arrival prior to rituximab, Outpatient Transfusion, Routine Given 10/03/2019 10:50 AM EDT 25 mg riTUXimab (RITUXAN) 1,000 mg in sodium chloride 0.9% 500 mL infusion 1,000 mg, Intravenous, ONCE, 1 dose, On 10/03/19 at 1045, FIRST INFUSION Administer intravenously at an initial [...] the previous rate., Outpatient Transfusion New Bag 10/03/2019 11:15 AM EDT 1,000 mg documented in this encounter Care Teams Towel Weaver Relationship Specialty Start Date End Date Yanique Mandujano APRN [address] [place] [phone] PCP - General 04/23/10 10/16/19 documented as of this encounter
--- OUTSIDE RECORDS SUMMARY | 2023-12-11 00:12 | XMS_ITS | Encounter Summary ---
Author Organization [facility] [place] [address] Care Team Providers Care Restorative Art Embalmer Name Role Phone Yanique Mandujano MARIAH Primary Care Provider +1- [phone] Encounter Details Date Type Department Care Team (Late st Contact Info) Description 03/01/2014 [place] [phone] Tato Joe MD [address] [place] [address] Social History Tobacco Use Types Packs/Day Years Used Date Smoking Tobacco: Every Day Sex and Gender Information Value Date Recorded Sex Assigned at Not on file Gender Identity Not on file Sexual Orientation Not on file documented as of this encounter Plan of Treatment Not on file documented as of this encounter Procedures Procedure Name Priority Date/Time Associated Diagnosis Comments SURGICAL PATHOLOGY REPORT Routine 03/01/2014 1:40 PM EDT documented in this encounter Results * Surgical Pathology Report (03/01/2014 1:40 PM EDT) Surgical Pathology Report ? [facility] ? Provider: ?? CAMELIA, ? Pt. Name: ?? FABIAN MANDUJANO ?TATO ? Acc #: ?[id number] ?Pt. ? Col Date: ?? 03/01/2014 ? /Sex: ?1980,(33 years),Female ? Rec Date: ?? 03/02/2014 ? LOC: ?[facility] ? SURGICAL PATHOLOGY ? ---Pathologic Diagnosis--- ? A - Cervical biopsy at 12 o'clock: ? 1. Squamous metaplasia. ? 2. No definite evidence of dysplasia or HPV effect. ? B - Endocervical curettings: ? 1. Fragments of benign endocervical mucosa intermixed with cervical ?mucus. ? 2. No evidence of dysplasia or HPV effect. ? CR-0 ? 03/03/14 ? [facility] ? 03/03/14 Verified by: ? Ba CORTES, Nazario Burger ? Pathologist ? (Electronic Signature) ? The attending pathologist whose signature appears on this report has ? reviewed all diagnostic slides and has edited the gross and/or ? microscopic portion of the report in rendering the final pathologic ? diagnosis. ? ---Gross Description--- ? A - Labeled/Fixative : 12 o'clock, formalin. ? Quantity/Size: One, 0.5 x 0.3 x 0.15 cm. ? Tissue Description: Vargas tissue. ? Sections/Process ing: (T1) ? B - Labeled/Fixative : ECC, formalin. ? Quantity/Size: Fragments, 0.3 x 0.3 x 0.1 cm. ? Tissue Description: Soft vargas tissues. ? Sections/Process ing: (T1) ??cjl ? ---Clinical Information--- ? Specimen Submitted: ? A - Cervix at 12:00 ? B - ECC ? Clinical History: ? 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 Clinical Diagnosis: ? 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 [facility] ? Provider: ?? CAMELIA, ? Pt. Name: ?? FABIAN MANDUJANO ?TATO ? Acc #: ?[id number] ?Pt. ? Col Date: ?? 03/01/2014 ? /Sex: ?1980,(33 years),Female ? Rec Date: ?? 03/02/2014 ? LOC: ?[facility] ? SURGICAL PATHOLOGY ? Referring Identifier: ??[id number] YE DUMONT 03/01/2014 1:40 PM EDT Narrative YE DUMONT - 03/03/2014 3:40 PM EDT Spec In Lab / [facility] Tato Joe MD PATHOLOGY/CYTOLO GY ORDERABLES YE DUMONT documented in this encounter Visit Diagnoses Not on filedocumented in this encounter Care Teams Restorative Art Embalmer Relationship Specialty Start Date End Date Yanique Mandujano APRN [address] [place] [address] PCP - General 04/23/10 10/16/19 documented as of this encounter
--- OUTSIDE RECORDS SUMMARY | 2023-12-11 00:12 | XMS_ITS | Encounter Summary ---
Author Organization [facility] Address [address] [place] [address] Care Team Providers Care Capsule Machine Operator Name Role Phone Aneta Perez Primary Care Provider [phone] Encounter Details Date Type Department Care Team (Late st Contact Info) Description 05/10/2021 Lab Requisition [facility] Pathology & Laboratory Medicine - [address] [address] Outr Resulting Lab, Provider Social History Tobacco [...] Comments CHLAMYDIA/N. GONORRHOEAE AMPLIFIED NUCLEIC ACID Routine 05/10/2021 11:55 EST documented in this encounter Results * CHLAMYDIA/N. GONORRHOEAE AMPLIFIED RNA (05/10/2021 11:55 EST) Neisseria gonorrhoeae Result Negative Negative 05/13/2021 15:21 EST [facility] Chlamydia trachomatis Result Negative Negative 05/13/2021 15:21 EST [facility] Swab ENTIRE ENDOCERVIX / Unknown 05/10/2021 11:55 EST 05/10/2021 22:10 EST Provider Outr Resulting Lab MICROBIOLOGY - GENERAL ORDERABLES [facility] [address] [place] [address] documented in this encounter Visit Diagnoses Not on filedocumented in this encounter Care Teams Capsule Machine Operator Relationship Specialty Start Date End Date Aneta Perez PA [address] [place] [phone] PCP - General 11/12/18 documented as of this encounter
--- OUTSIDE RECORDS SUMMARY | 2023-12-11 00:12 | XMS_ITS | Encounter Summary ---
Author Organization [facility] [place] [address] Care Team Providers Care Trust Officer Name Role Phone Yanique Mandujano MARIAH Primary Care Provider [phone] Reason for Visit * High Dollar Medication (Routine) - Closed Specialty Diagnoses / Procedures Referred By Contac t Referred To Contact Med Infusion Diagnoses Rheumatoid arthritis involving multiple sites with positive rheumatoid factor Procedures TC RITUXIMAB, 10MG INJECTION Zak Lee MD [facility] [place] [address] [facility] Med Infusion [address] [place] [id number] Referral ID Status Reason Start Date Expiration Date V isits Requested Visits Authorized [id number] Closed Consult, Test & Treat 06/02/2018 06/02/2019 2 2 Encounter Details Date Type Department Care Team (Latest Contact Info) Description 06/16/2018 8:30 AM EST - 06/16/2018 11:59 PM EST Hospital [place] [address] Rheumatoid arthritis involving multiple sites [...] Sign Reading Time Taken Comments Blood Pressure 122/74 06/16/2018 11:00 AM EST Pulse 107 06/16/2018 11:00 AM EST Temperature 37.1 ??C (98.8 ??F) 06/16/2018 11:[address] Respiratory Rate 18 06/16/2018 8:20 AM EST Oxygen Saturation 98% 06/16/2018 11:00 AM EST Inhaled Oxygen Concentration - - Weight - - Height - - Body Mass Index - - documented in this encounter Medications at Time of Discharge Medication Sig Dispensed Refills Start Date End Date amitriptyline (ELAVIL) 100 mg Tablet Take 1 tablet by mouth daily. 05/13/2018 [employer]OUCH ULTRA BLUE TEST STRIP Strip as needed. 01/25/2018 [employer]. [employer] ULTRA2 Kit as needed. 01/25/2018 lamoTRIgine (LAMICTAL) [...] as of this encounter Progress Notes * Alida Blackman RN - 06/16/2018 8:22 AM EST INFUSION THERAPY ADMINISTRATION NOTES DIAGNOSIS: The encounter diagnosis was Rheumatoid arthritis involving multiple sites with positive rheumatoid factor. REASON FOR VISIT: Rituxan day # 0 SUBJECTIVE: Offers no complaints. OBJECTIVE: First Rituxan dose VITALS: Most Recent Vitals: 06/16/18 0820 BP: 112/73 Pulse: (!) 105 Resp: 18 Temp: 36.7 ??C (98.1 ??F) SpO2: 100% IF PAIN >5, INTERVENTION AND EFFECTIVENESS: na IV ACCESS: Peripheral IV Line - Single Lumen 06/16/18 0830 basilic vein (medial side of arm), left 22 gauge (Active) HYDRATION: 500cc NS as needed. ANTIEMETICS/PREMEDS, Methylprednisolone 100 mg IV Benadryl 25 mg PO Patient identification and orders checked against actual dose given at bedside by Chelsie Blackman RN TREATMENT Rituxan 1000 mg IV Administration times: See JUL 30 dosing schedule used. REACTIONS Around 1100 (1.5 hrs into infusion) patient's throat began to bother her but this was tolerable. She denies all itching and says she feels otherwise fine. Pt got up to use the bathroom and upon returning felt more weak and tired than before she stood up. Vital signs retaken and were all stable/similar to pre- infusion. Infusion paused and pepcid 20mg administered. After about 30 minutes of resting and the fluids finished infusing, the patient reported feeling a little better, just tired. ASSESSMENT: Tolerated infusion well. PLAN: Return to clinic as scheduled. documented in this encounter Plan of Treatment [...] 25 mg, Oral, ONCE, 1 dose, On Thu06/16/18 at 0845, FIRST INFUSION Upon arrival prior to rituximab, Outpatient Transfusion, Routine Given 06/16/2018 8:25 AM EST 25 mg famotidine (PEPCID) 20 mg/2 mL injection 1 dose, Starting on Thu06/16/18 at 1119, Until Thu06/16/18 at 1125, Alida Blackman.: cabinet override famotidine (PEPCID) injection 20 mg 20 mg, Intravenous, ONCE, 1 dose, On Thu06/16/18 at 1145, IV push over 1 minute once., Routine Given 06/16/2018 11:25 AM EST 20 mg methylPREDNISolone sodium succinate (PF) (SOLU-Medrol) injection 100 mg 100 mg, Intravenous, ONCE, 1 dose, On Thu06/16/18 at 0845, FIRST INFUSION Upon arrival prior to rituximab., Outpatient Transfusion Given 06/16/2018 8:35 AM EST 100 mg riTUXimab (RITUXAN) 1,000 mg in sodium chloride 0.9% 500 mL infusion 1,000 mg, Intravenous, ONCE, 1 dose, On Thu06/16/18 at 0845, FIRST INFUSION Administer intravenously at [...] one-half the previous rate., Outpatient Transfusion Restarted 06/16/2018 11:38 AM EST 1,000 mg New Bag 06/16/2018 9:05 AM EST 1,000 mg sodium chloride 0.9% infusion 500 mL, Intravenous, CONTINUOUS, Starting on Thu06/16/18 at 1145, Until Vivian 06/17/18 at 0446, Ensure patent IV access to keep vein open New Bag 06/16/2018 11:00 AM EST 500 mLs documented in this encounter Care Teams Trust Officer Relationship Specialty Start Date End Date Yanique Mandujano APRN [address] [place] [phone] PCP - General 04/23/10 10/16/19 documented as of this encounter
--- OUTSIDE RECORDS SUMMARY | 2023-12-11 00:12 | XMS_ITS | Encounter Summary ---
[facility] [place] [address] Care Team Providers Care Clinical Sociologist Name Role Phone Yanique Mandujano CHIEF WARDEN Primary Care Provider [phone]- [phone] Reason for Visit * Consultation (Routine) - Closed Specialty Diagnoses / Procedures Referred By Roberto palomares Referred To Contact Endocrinology Diagnoses autoimmune thyroiditis Yanique Mandujano, MARIAH [address] [place] [address] [facility] Endocrinology [address] [place] [phone] Referral ID Status Reason Start Date Expiration Date V isits Requested Visits Authorized [id number] Closed Consult, Test & Treat [facility] 06/10/2016 06/10/2017 1 1 Encounter Details Date Type Department Care Team (Late st Contact Info) Description 07/15/2016 8:00 AM EST Office [place] [address] Chao Malik DO [facility] [place] [address] Shruthi Mai MD [facility] [place] [address] Hyperthyroidism Social History Tobacco Use Types Packs/Day Years Used Date Smoking Tobacco: Every Day Cigarettes Smokeless Tobacco: Never Sex and Gender Information Value Date Recorded Sex Assigned at Not on file Gender Identity Not on file Sexual Orientation Not on file documented as of this encounter Last Filed Vital Signs Vital Sign Reading Time Taken Comments Blood Pressure 121/91 07/15/2016 7:48 AM EST Pulse 94 07/15/2016 7:48 AM EST Temperature - - Respiratory Rate - - Oxygen Saturation - - Inhaled Oxygen Concentration - - Weight 65.1 kg (143 lb 9.6 oz) 07/15/2016 7:48 A M EST Height 157.5 cm (5' 2) 07/15/2016 7:48 AM EST Body Mass Index 26.26 07/15/2016 7:48 AM EST documented in this encounter Progress Notes * Shruthi Mai MD - 07/15/2016 8:00 AM EST Images from the original note were not included. NEW PATIENT VISIT - hyperthyroidism 35 year old female noted to have unintentional weight loss of 34lbs over 4 months. She was investigated by her PCP and found to have a suppressed TSH 0.06 however one week later TSH had normalized. Athyroid US was later performed which showed an enlarged, heterogenous and hypervascular gland. She denies use of over the counter supplementation or imaging with contrast. Given results noted previously she was referred to Endocrinology [facility] for further management. Thyroid Compressive symptoms: Globus sensation: No Dysphagia: No Dysphonia: No Dyspnea: No Symptoms of thyroid hormone excess Heat intolerance: No Diarrhea: No Weight loss Appears to have plateaued. Anxiety: Worsened over the past month Jitteriness: Yes. Also going through a divorce. Tremors: No Palpitations: Yes x1 month - provoked by thoughts. Difficulty concentrating: No Goiter: No Hypothyroidism: No Thyroid cancer: No Diabetes mellitus: Yes Other auto-immune diseases: rheumatoid arthritis Vitiligo: No Past Medical History Patient Active Problem List Diagnosis Code ??? Depression F32.9 ??? Anxiety F41.9 DM type II RA Insomnia HTN HLD Hyperthyroidism Rest leg syndrome Vitamin D deficiency Asthma Allergies Allergen Reactions ??? Milk Other (See Comments) Upset stomach ??? Egg Nausea Only ??? Penicillins Rash ??? Tylenol W Codeine [Acetaminophen-Codeine] Other (See Comments) Don't know where I am, or what I'm doing ??? lamoTRIgine (LAMICTAL) 200 mg Tablet ??? cholecalciferol, Vitamin D3, (CHOLECALCIFEROL, VITAMIN D3,) 2,000 unit Capsule ??? magnesium 250 mg Tablet ??? Adalimumab 40 mg/0.8 mL Pen Injector Kit ??? metFORMIN (GLUCOPHAGE) 500 mg Tablet ??? cloNIDine (CATAPRES) 0.2 mg tablet lovastatin Valsartan Surgical history Hand surgery Family History No family history of thyroid disease Mother - COPD, spondyilitis Father- CVA Brother- alcohol abuse, depression Aunt- DM Social History lives with brother. 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 Denies weakness, night sweats. Head: denies headache ENT: denies swelling/puffiness around eyes, denies dysphagia CV: denies chest pain, , denies edema in b/l LE Resp: denies shortness of breath on exertion, denies cough GI: denies constipation, denies abdominal pain, nausea/vomiting : denies dysuria, increased urgency or frequency, denies menrrhagia Musk: joint pain 2/2 to RA Neuro: paresthesia of R hand Skin: denies coarse/cracked skin Physical Exam BP (!) 121/91 Pulse 94 Ht 157.5 cm (5' 2) Wt 65.1 kg (143 lb 9.6 oz) BMI 26.26 kg/m2 GEN: Pleasant , who appears stated age, NAD. No tremor EYES: PERRL B/L, EOMi b/l; no lid lag, no conjunctival injection 98 baseline 19mm b/l NECK: Trachea midline, no neck masses; thyroid 20g, no bruit ; no cervical lymphadenopathy noted CHEST: +air entry b/l CV: +s1, s1 nl RRR ABD: +BS, soft, NT/ND MSK: Normal gailt SKIN: Warm and dry; without lesions or rashes NEURO: AAOX 4, CN II-XII grossly intact. 5/5 strength in b/l UE & LE Results ASSESSMENT 35 year old female noted to have unintentional weight loss of 34lbs over 4 months. She was investigated by her PCP and found to have a suppressed TSH 0.06 however one week later TSH had normalized. Athyroid US was later performed which showed an enlarged, heterogenous and hypervascular gland. She denies use of over the counter supplementation or imaging with contrast. Given results noted previously she was referred to Endocrinology [facility] for further management. Liset's initial labs supports thediagnosis of subclinical hyperthyroidism which can be classified as either exogenous or endogenous.The exogenous category occurs in the setting of consumption of thyroid hormone. Endogenous subclinical hyperthyroidism differentials includes thyroiditis vs Grave's disease vs toxic adenoma vs toxic multinodular goiter. A toxic large adenoma and a toxic multinodular goiter has already been ruled out by thyroid US. It is likely that she has either Graves disease vs thyroiditis that is either in remission or has since resolved. Other labs performed at that time included TPO Ab, TSI and antithyroglobulin Ab which were all elevated. These antibodies can be found in the general population or in patients with underling Graves disease and also autoimmune thyroiditis as shown below: For now we will recheck her TFT's and if they are normal suggest repeating TFT's if symptoms recur/return to Endocrinology. PLAN: -await repeat TFT's today to decide on further management. Patient reviewed with Dr Malik. Shruthi Mai MD PGY-4 Endocrinology Fellow 07/16/16 * Chao Malik DO - 07/15/2016 8:00 AM EST I have seen the patient and reviewed Dr Mai' history and I agree with the details as written. Theassessment and plan were formulated in discussion with me and I agree with them as documented. Chao Malik DO, MS Cast Iron Dipperred mud thickener operator Section of Endocrinology [facility] documented in this encounter Plan of Treatment Not on file documented as of this encounter Procedures Procedure Name Priority Date/Time Associated Diagnosis Comments T3 TOTAL Routine 07/15/2016 9:08 AM EST Hyperthyroidism TSH Routine 07/15/2016 9:08 AM EST Hyperthyroidism T4, FREE Routine 07/15/2016 9:08 AM EST Hyperthyroidism documented in this encounter Results * T3 Total (07/15/2016 9:08 AM EST) T3, Total 157 75 - 170 ng/dL [facility] Blood specimen (specimen) 07/15/2016 9:08 AM EST 07/15/2016 9:17 AM EST Narrative Resulting Agency Comment Spec In Lab Chao Malik DO CHEMISTRY ORDERABLES Performing Organization Address City/[facility]/ZIP Co de Phone Number [facility] [place] [address] * T4, free (07/15/2016 9:08 AM EST) Free T4 1.01 0.93 - 1.70 ng/dL [facility] Blood specimen (specimen) 07/15/2016 9:08 AM EST 07/15/2016 9:17 AM EST Narrative Resulting Agency Comment Spec In Lab Chao Malik DO CHEMISTRY ORDERABLES Performing Organization Address City/[facility]/ZIP Co de Phone Number [facility] [place] [address] * TSH (07/15/2016 9:08 AM EST) TSH 2.72 0.27 - 4.20 mcIU/mL [facility] Blood specimen (specimen) 07/15/2016 9:08 AM EST 07/15/2016 9:17 AM EST Narrative Resulting Agency Comment Spec In Lab Chao Malik DO CHEMISTRY ORDERABLES Performing Organization Address City/[facility]/ZIP Co de Phone Number [facility] [place] [address] documented in this encounter Visit Diagnoses Diagnosis Hyperthyroidism Thyrotoxicosis without mention of goiter or other cause, without mention of thyrotoxic crisis or storm documented in this encounter Care Teams Clinical Sociologist Relationship Specialty Start Date End Date Yanqiue Mandujano APRN [address] [place] [phone] PCP - General 04/23/10 10/16/19 documented as of this encounter
--- OUTSIDE RECORDS SUMMARY | 2023-12-11 00:13 | XMS_ITS | Encounter Summary ---
Author Organization [facility] Address [address] [place] [address] Care Team Providers Care Golf Cart Repairer Name Role Phone Yanique Mandujano APRN Primary Care Provider Encounter Details Date Type Department Care Team (Latest Contact Info) Description 11/09/2018 10:04 EDT - 11/09/2018 23:59 EDT Hospital Encounter [address] [address] Unknown, Provider, Discharge Disposition: Home or Self Care Social History Tobacco Use Types Packs/Day Years Used Date Smoking Tobacco: Never Assessed Sex and Gender Information Value Date Recorded Sex Assigned at Not on file Gender Identity Not on file Sexual Orientation Not on file documented as of this encounter Discharge Disposition Disposition Code Departure Means Destination Home or Self Usp documented in this encounter Plan of Treatment Not on file documented as of this encounter Visit Diagnoses Not on filedocumented in this encounter Care Teams Golf Cart Repairer Relationship Specialty Start Date End Date Yanique Mandujano APRN PCP - General 04/04/15 11/11/18 documented as of this encounter
--- OUTSIDE RECORDS SUMMARY | 2023-12-11 00:13 | XMS_ITS | Encounter Summary ---
Author Organization [facility] Address [address] [place] [address] Care Team Providers Care District Agent Name Role Phone Aneta Perez Primary Care Provider [phone] Encounter Details Date Type Department Care Team (Late st Contact Info) Description 11/16/2019 Lab Requisition [facility] Pathology & Laboratory Medicine - [facility] [address] [place] [address] Outr Resulting Lab, Provider Social History Tobacco [...] Procedure Name Priority Date/Time Associated Diagnosis Comments ZZCOVID-19 TEST [facility] PCR Today 11/16/2019 21:15 EDT COVID-19 TESTING Routine 11/16/2019 21:1 5 EDT documented in this encounter Results * COVID-19 TEST [facility] PCR (11/16/2019 21:15 EDT) Swab ENTIRE NASOPHARYNX / Unknown 11/16/2019 21:15 EDT 11/17/2019 8:41 EDT Provider Outr Resulting Lab MICROBIOLOGY - GENERAL ORDERABLES [facility] [address] [place] [address] * COVID-19 TESTING (11/16/2019 21:15 EDT) COVID-19 rt-PCR Result Negative Negative 11/17/2019 12:22 EDT [facility] Comment: This test has not been FDA cleared or approved. This test has been authorized by FDA under an EUA for use by authorized laboratories. This test has been authorized only for detection of nucleic acid from 2019-nCoV, not for any other viruses or pathogens. This test is only authorized for the duration of the declaration that circumstances exist justifying the authorization of emergency use of in vitro diagnostic tests for detection and/or diagnosis of 2019-nCoV under section 564(b)(1) of Act, 21 U.S.C ?? 360bbb-3(b) (1), unless the authorization is terminated or revoked sooner. Negative results do not preclude 2019-nCoV infection and should not be used as the sole basis for treatment or other patient management decisions. Negative results must be combined with clinical observations, patient history, and epidemiological information. Performed on the [employer] Fusion instrument Performing Lab [place] [facility] Lab 11/17/2019 12:22 EDT [facility] Swab 11/16/2019 21:1 5 EDT 11/17/2019 8:41 EDT Provider Outr Resulting Lab MICROBIOLOGY - GENERAL ORDERABLES [facility] [address] [place] [address] documented in this encounter Visit Diagnoses Not on filedocumented in this encounter Care Teams District Agent Relationship Specialty Start Date End Date Aneta Perez PA [address] [place] [id number] PCP - General 11/12/18 documented as of this encounter
--- OUTSIDE RECORDS SUMMARY | 2023-12-11 00:13 | XMS_ITS | Encounter Summary ---
Author Organization [facility] Address [address] [place] [address] Care Team Providers Care Barrel Raiser Name Role Phone Unavailable Primary Care Provider Unavailabl e Encounter Details Date Type Department Care Team (Late st Contact Info) Description 12/02/2007 Before PRISM Converted Visit (Maple) [facility] - [facility] conversion [address] [place] [address] Anup Javier, DO [address] [place] [address] Social History Tobacco Use Types Packs/Day Years Used Date Smoking Tobacco: Never Assessed Sex and Gender Information Value Date Recorded Sex Assigned at Not on file Gender Identity Not on file Sexual Orientation Not on file documented as of this encounter Plan of Treatment Not on file documented as of this encounter Procedures Procedure Name Priority Date/Time Associated Diagnosis Comments SURGICAL PATHOLOGY Routine 12/02/2007 0:00 EDT documented in this encounter Results * SURGICAL PATHOLOGY (12/02/2007 0:00 EDT) Pathology Report: SURGICAL PATHOLOGY REPORT ? Reports generated via electronic interface contain original data; ? however they are lacking the format of the original report. ? Caution should be taken when reading/interpreting unformatted reports. ? Name: ? FYSH, DIOGENES ? Accession #: ? [id number] ? : ? 1980 (Age: 27) ??F ? Collect Date: ? 12/02/2007 ? Location: ? [facility] ? Receive Date: ? 12/02/2007 ? Provider: ANUP MITZ DO ? Copy to: [employer] ? Final Pathologic Diagnosis: ? A. ?Duodenum, second portion, biopsy: ? 1. ?Duodenal mucosa (four pieces) with focal intraepithelial ? lymphocytosis. ??See comment. ? B. ?Stomach, antrum, biopsy: ? 1. ?Antral-type mucosa with reactive foveolar hyperplasia, ? suggestive of reactive ?gastropathy. ?2. ?Negative for Helicobacter-pylori- like microorganisms on H&E-stained sections. ? C. ?Esophagus, at 34 cm, biopsy: ? 1. ?Reactive squamous mucosa (one piece) with mild chronic inflammation. See comment. ? 2. ?Cardia-type columnar mucosa with reactive epithelial changes. ? Comment: ? Intraepithelial lymphocytosis without villous blunting can be seen in ? celiac sprue. ??Correlation with sprue-specific antibodies (anti-gliadin ? antibody, anti-endomysial antibody, anti-tissue transglutaminase antibody) may ?? be informative. ? Squamous mucosa in specimen (C) shows elongation of epithelial rete and ? capillary congestion. ??Similar features can be seen in gastroesophageal reflux; however, no intraepithelial eosinophils are seen in this specimen. ? This case has been reviewed at intradepartmental consultation conference. ? ()/mpl ? Document reviewed and electronically signed by: ? Eric Barton MD ? Report ??Date: 12/07/2007 15:59 ? By the signature above, the attending physician certifies that he/she has ? personally conducted a gross and/or microscopic examination of the described ? specimens and rendered or confirmed the above diagnosis. ? Specimen(s) Received: ? A. ?2nd portion of duodenum ? B. ? Antrum ? C. ? Esophagus @ 34 cm ? Clinical History: ? Abd pain/GERD ? Gross Description: ? Received in Felixande's fixative labelled Fysh and 2nd portion of ? duodenum are four portions of vargas-pink soft tissue averaging 0.2 x 0.1 x 0.1 ?? cm. ??Submitted in toto as (A). ? Received in Felixande's fixative labelled Fysh and antrum is a 0.2 x 0.2 x ?? 0.1 cm portion of vargas-pink soft tissue. ??Submitted intact as (B). ? Received in Felix[facility] healthe's fixative labelled Fysh and esophagus at 34 cm are two portions of vargas-white soft tissue averaging 0.1 x 0.1 x 0.1 cm. ??Submitted in ?? toto as (C). ??(Corrine Moreno/oscar ? End of Report ? TYRONE VALERIO 12/02/2007 12/02/2007 9:3 3 EDT Anup Javier DO PATHOLOGY ORDERABLES [facility] [address] [place] [address] documented in this encounter Visit Diagnoses Not on filedocumented in this encounter
--- OUTSIDE RECORDS SUMMARY | 2023-12-11 00:13 | XMS_ITS | Encounter Summary ---
Author Organization [facility] Address [address] [place] [address] Care Team Providers Care Carpenter Cradle And Dolly Name Role Phone Yanique Mandujano APRN Primary Care Provider [phone] Encounter Details Date Type Department Care Team (Late st Contact Info) Description 11/09/2018 Results Only [facility] [phone] Chriss Delgado MD [address] [place] [phone] Social History Tobacco Use Types Packs/Day Years Used Date Smoking Tobacco: Never Assessed Sex and Gender Information Value Date Recorded Sex Assigned at Not on file Gender Identity Not on file Sexual Orientation Not on file documented as of this encounter Plan of Treatment Not on file documented as of this encounter Procedures Procedure Name Priority Date/Time Associated Diagnosis Comments SURGICAL PATHOLOGY Routine 11/09/2018 19 :16 EDT documented in this encounter Results * SURGICAL PATHOLOGY (11/09/2018 19:16 EDT) Pathology Report: SURGICAL PATHOLOGY REPORT Reports generated via electronic interface contain original data; however they are lacking the format of the original report. Caution should be taken when reading/interpreting unformatted reports. Name: ? LEANA MANDUJANO ? Accession #: ? [id number] ? : ? 1980 (Age: 38) ??F ? Collect Date: ? 11/09/2018 ? Location: ? [facility] ? Receive Date: ? 11/10/2018 ? Provider: CHRISS DELGADO MD Copy to: REX VILLAFANA ? 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 ??See comment. Comment: Chronic synovitis with lymphoplasmacytic infiltrate raises a possibility of rheumatoid arthritis-associated lesion. Clinical correlation is recommended. This case was presented and reviewed at the intradepartmental consultation conference. Document reviewed and electronically signed by: Eric Barton MD Report ??Date: 11/15/2018 17:33 By the signature above, the attending physician certifies that he/she has personally conducted a gross and/or microscopic examination of the described specimens and rendered or confirmed the above diagnosis. Specimen(s) Received: Tenosynovitis left wrist Clinical History: Nontraumatic rupture of left wrist tendon; clinical diagnosis code: ??M66.832 Gross Description: ? Received in formalin labelled with proper patient identification (initials F, B) and tenosynovitis left wrist is a 2.5 x 2.0 x 1.0 cm irregular fragment of pink-yellow soft tissue. No masses or lesions identified. [facility] sections are submitted in 1. BRODERICK Dill (ASCP) 11/11/2018 7:57 AM End of Report [facility] 11/09/2018 19:1 6 EDT 11/10/2018 19:16 EDT Chriss Delgado MD PATHOLOGY ORDERABLES [facility] [address] [place] [address] documented in this encounter Visit Diagnoses Not on filedocumented in this encounter Care Teams Carpenter Cradle And Dolly Relationship Specialty Start Date End Date Yanique Mandujano APRN PCP - General 04/04/15 11/11/18 documented as of this encounter
--- OUTSIDE RECORDS SUMMARY | 2023-12-11 00:13 | XMS_ITS | Encounter Summary ---
Author Organization [facility] Address [address] [place] [address] Care Team Providers Care Ware Cleaner Name Role Phone Aneta Perez Primary Care Provider [phone] Encounter Details Date Type Department Care Team (Late st Contact Info) Description 02/13/2020 Lab Requisition [facility] Pathology & Laboratory Medicine - [facility] [address] [place] [address] Micaela Abraham, DO [address] [place] [address] Encounter for other general examination Social History Tobacco Use Types Packs/Day Years [...] Date/Time Associated Diagnosis Comments SURGICAL PATHOLOGY Today 02/13/2020 10 :56 EDT Encounter for other general examination documented in this encounter Results * SURGICAL PATHOLOGY (02/13/2020 10:56 EDT) Final Diagnosis A. DUODENUM, BULB, BIOPSY: - Peptic duodenitis. B. STOMACH, ANTRUM, BIOPSY: - Marked active erosive gastritis. - Background pattern of gastric injury: reactive (chemical) gastropathy. C. STOMACH, GREATER CURVE, BIOPSY: - Erosive gastritis. - Background pattern of gastric injury: reactive (chemical) gastropathy. - Immunohistochemical staining for Helicobacter pylori is negative. D. STOMACH, CARDIA, BIOPSY: - Gastric fundic type mucosa with no specific pathologic features. E. GASTROESOPHAGEAL JUNCTION, BIOPSY: - Fundic type mucosa with no specific pathologic features. - Negative for intestinal metaplasia; Negative for dysplasia. F. ESOPHAGUS, DISTAL, BIOPSY: - Squamous mucosa with mild reflux esophagitis. 02/16/2020 12:03 [facility] Diagnosis Comment ANTIBODY(CLONE)(BLOCK ):RESULT H pylori (Rabbit Monoclonal (SP48), Heron) (C1): Negative NOTE: One or more of the reagents used in immunoperoxidase testing in this case may not have been cleared or approved by the U.S. Food and Drug Administration (FDA). The FDA has determined that such clearance or approval is not necessary. These tests are used for clinical purposes. They should not be regarded as investigational or for research. These reagents' performance characteristics have been determined by [facility] and/or by the referring laboratory. The positive and negative controls worked appropriately. If immunoperoxidase staining has been performed on alcohol fixed cytology specimens, which has not been fully validated, the assays should be interpreted with caution and correlated with clinical data. This laboratory is certified under the Clinical Laboratory Improvement Amendments of 1988 (CLIA-88) as qualified to perform high complexity clinical laboratory testing. 02/16/2020 12:03 [facility] Attestation By the signature below, the attending physician certifies that they have 1) personally conducted a gross and/or microscopic examination of the described specimen(s), and/or personally interpreted the results of laboratory testing of the described specimen(s), and 2) personally rendered or confirmed the above diagnosis. 02/16/2020 12:03 [facility] at 1203 Clinical History Epigastric and RUQ pain; nausea/vomiting 02/16/2020 12:03 [facility] Gross Description A. Received in formalin labelled with proper patient identification (initials F, B) and duodenal bulb is a single fragment of pink tissue (0.3 x 0.2 x 0.2 cm). The specimen is submitted entirely in A1. B. Received in formalin labelled with proper patient identification (initials F, B) and antrum Bx is a single fragment of vargas tissue (0.2 x 0.2 x 0.2 cm). The specimen is submitted entirely in B1. C. Received in formalin labelled with proper patient identification (initials F, B) and greater curve Bx is a single fragment of pink tissue (0.3 x 0.3 x 0.2 cm). The specimen is submitted entirely in C1. D. Received in formalin labelled with proper patient identification (initials F, B) and cardia Bx is a single fragment of pink tissue (0.4 x 0.2 x 0.2 cm). The specimen is submitted entirely in D1. E. Received in formalin labelled with proper patient identification (initials F, B) and GE junction Bx is a single fragment of pink tissue (0.3 x 0.2 x 0.2 cm). The specimen is submitted entirely in E1. F. Received in formalin labelled with proper patient identification (initials F, B) and distal esophagus Bx is a single fragment of white tissue (0.2 x 0.2 x 0.2 cm). The specimen is submitted entirely in F1. 02/13/2020 16:08 02/16/2020 12:03 [facility] Performing Lab [facility] 02/16/2020 12:03 T [facility] Scanned Images 02/16/2020 12:03 T [facility] Tissue ENTIRE ESOPHAGUS / Unknown 02/13/2020 10:56 EDT 02/13/2020 15:38 EDT Tissue specimen (specimen) PYLORIC ANTRUM STRUCTURE / Unknown 02/13/2020 10:56 EDT 02/13/2020 15:38 EDT Tissue specimen (specimen) STOMACH STRUCTURE / Unknown 02/13/2020 10:56 EDT 02/13/2020 15:38 EDT Tissue specimen (specimen) CARDIA STRUCTURE / Unknown 02/13/2020 10:56 EDT 02/13/2020 15:38 EDT Tissue specimen (specimen) CARDIOESOPHAGEAL JUNCTION STRUCTURE / Unknown 02/13/2020 10:56 EDT 02/13/2020 15:38 EDT Tissue specimen (specimen) ESOPHAGEAL STRUCTURE / Unknown 02/13/2020 10:56 EDT 02/13/2020 15:38 EDT Micaela Abraham DO PATHOLOGY ORDERABLES [facility] [address] [place] [address] documented in this encounter Visit Diagnoses Diagnosis Encounter for other general examination documented in this encounter Care Teams Ware Cleaner Relationship Specialty Start Date End Date Aneta Perez PA [address] [place], [place] [id number] PCP - General 11/12/18 documented as of this encounter
--- OUTSIDE RECORDS SUMMARY | 2023-12-11 00:13 | XMS_ITS | Encounter Summary ---
Author Organization [facility] Address [address] [place] [address] Care Team Providers Care Odd Shoe Examiner Name Role Phone Aneta Perez Primary Care Provider [phone] Encounter Details Date Type Department Care Team (Late st Contact Info) Description 02/10/2020 Lab Requisition [facility] Pathology & Laboratory Medicine - [facility] [address] [place] [address] Outr Resulting Lab, Provider Social History Tobacco [...] Procedure Name Priority Date/Time Associated Diagnosis Comments DO NOT ORDER STANDALONE - BROAD COVID TEST Today 02/10/2020 10:58 EDT COVID-19 TESTING Routine 02/10/2020 10:5 8 EDT documented in this encounter Results * DO NOT ORDER STANDALONE - BROAD COVID TEST (02/10/2020 10:58 EDT) COVID-19 rt-PCR Result NEGATIVE Negative 02/11/2020 15:36 EDT [facility] Comment: 2019-novel Coronavirus (2019-nCoV) not detected by the qRT-PCR assay. Consider testing for other respiratory viruses or re-collecting for 2019-nCoV testing. Note: Optimum timing for peak viral levels during infections caused by 2019-nCoV have not been determined. Collection of multiple specimens from the same patient may be necessary to detect the virus. Limitations Positive results are indicative of active infection with SARS-CoV-2 but do not rule out bacterial infection or co-infection with other viruses. The agent detected may not be the definite cause of disease. In addition, detection of viral RNA may not indicate the presence of infectious virus or that SARS-CoV-2 is the causative agent for clinical symptoms. Negative results do not preclude SARS-CoV-2 infection and should not be used as the sole basis for patient management decisions. Negative results must be combined with clinical observations, patient history, and epidemiological information. False negative results may also occur if amplification inhibitors are present in the specimen or if inadequate numbers of organisms are present in the specimen. Optimum specimen types and timing for peak viral levels during infections caused by SARS-CoV-2 have not been fully determined. Collection of multiple specimens (types and time points) from the same patient may be necessary to detect the virus. The test was validated for use with upper respiratory specimens obtained via nasopharyngeal or oropharyngeal swabs in VTM, UTM, M4, M5, M6, saline, and MTM media. The performance of this test has not been established for other specimens. Specimens collected using other FDA recommended Specimen Collection Materials listed in the FDA COVID-19 Diagnostic Technologies communication (August 25, 2019) are processed with the caveat that they were not all validated for use with this test and the result must be interpreted in this context. Furthermore, a false negative results may occur if a specimen is improperly collected, transported or handled. If the virus mutates in the RT-PCR target region, SARS-CoV-2 may not be detected or may be detected less predictably. Inhibitors or other types of interference may produce a false negative result. An interference study evaluating the effect of common cold medications was not performed. This test is not FDA-cleared but its performance characteristics were established by our CLIA-certified, CAP-accredited, high complexity laboratory in accordance with CLIA regulations, College of [employer]ologists (CAP) guidelines (Aug 18, 2019), and FDA guidance (Jul 30, 2019). This test is only for use under the Food and Drug Administration's Emergency Use Authorization. Swab ENTIRE NASOPHARYNX / Unknown 02/10/2020 10:58 EDT 02/10/2020 16:13 EDT Provider Outr Resulting Lab MICROBIOLOGY - GENERAL ORDERABLES [facility] [place], [place] * COVID-19 TESTING (02/10/2020 10:58 EDT) COVID-19 rt-PCR Result NEGATIVE Negative 02/11/2020 18:09 EDT [facility] Comment: 2019-novel Coronavirus (2019-nCoV) not detected by the qRT-PCR assay. Consider testing for other respiratory viruses or re-collecting for 2019-nCoV testing. Note: Optimum timing for peak viral levels during infections caused by 2019-nCoV have not been determined. Collection of multiple specimens from the same patient may be necessary to detect the virus. Limitations Positive results are indicative of active infection with SARS-CoV-2 but do not rule out bacterial infection or co-infection with other viruses. The agent detected may not be the definite cause of disease. In addition, detection of viral RNA may not indicate the presence of infectious virus or that SARS-CoV-2 is the causative agent for clinical symptoms. Negative results do not preclude SARS-CoV-2 infection and should not be used as the sole basis for patient management decisions. Negative results must be combined with clinical observations, patient history, and epidemiological information. False negative results may also occur if amplification inhibitors are present in the specimen or if inadequate numbers of organisms are present in the specimen. Optimum specimen types and timing for peak viral levels during infections caused by SARS-CoV-2 have not been fully determined. Collection of multiple specimens (types and time points) from the same patient may be necessary to detect the virus. The test was validated for use with upper respiratory specimens obtained via nasopharyngeal or oropharyngeal swabs in VTM, UTM, M4, M5, M6, saline, and MTM media. The performance of this test has not been established for other specimens. Specimens collected using other FDA recommended Specimen Collection Materials listed in the FDA COVID-19 [employer] communication (August 25, 2019) are processed with the caveat that they were not all validated for use with this test and the result must be interpreted in this context. Furthermore, a false negative results may occur if a specimen is improperly collected, transported or handled. If the virus mutates in the RT-PCR target region, SARS-CoV-2 may not be detected or may be detected less predictably. Inhibitors or other types of interference may produce a false negative result. An interference study evaluating the effect of common cold medications was not performed. This test is not FDA-cleared but its performance characteristics were established by our CLIA-certified, CAP-accredited, high complexity laboratory in accordance with CLIA regulations, College of [employer] Pathologists (CAP) guidelines (Aug 18, 2019), and FDA guidance (Jul 30, 2019). This test is only for use under the Food and Drug Administration's Emergency Use Authorization. Performing Lab [facility] 02/11/2020 18:09 EDT [facility] Swab 02/10/2020 10:5 8 EDT 02/10/2020 16:13 EDT Provider Outr Resulting Lab MICROBIOLOGY - GENERAL ORDERABLES [facility] [address] [place], [place] [id number] [place] [address] LABORATORY [place], [place] documented in this encounter Visit Diagnoses Not on filedocumented in this encounter Care Teams Odd Shoe Examiner Relationship Specialty Start Date End Date Aneta Perez PA [address] [place] [address] PCP - General 11/12/18 documented as of this encounter
--- NOTE | 2023-12-11 07:15 | DI.US_ITS ---
Exam(s) US ABDOMEN LIMITED EXAM: US ABDOMEN LIMITED CLINICAL HISTORY: gallbladder, abd pain,r10.9 TECHNIQUE: Ultrasound abdomen performed using standard protocol. COMPARISON: CT CT ABDOMEN PELVIS W from 11/20/2023 FINDINGS: LIVER: Normal size. Normalechogenicity. No focal liver lesions are seen.. GALLBLADDER: No evidence of cholelithiasis. No evidence of wall thickening. No pericholecystic fluid identified. TREVINO'S SIGN: Negative. BILIARY SYSTEM: No intrahepatic or extrahepatic biliary ductal dilation. RIGHT KIDNEY: Normal size. No evidence of renal calculi. No evidence of hydronephrosis. No suspicious renal mass. No cyst identified. PANCREAS: Normal where visualized. ABDOMINAL AORTA AND IVC: Visualized portions normal caliber. ASCITES: None seen. IMPRESSION: Normal sonographic appearance of the right upper quadrant. DATA REPOSITORY:
== END ==
PROVIDERS: PCP Nurse Practitioner Adult Health; Visit Provider Surgery
DX: E13.9 Other specified diabetes mellitus without complications (principal); R10.9 Unspecified abdominal pain
CPT/HCPCS: 76705

== ENCOUNTER → 2023-12-14 02:23 | Outpatient (CLI) | payer MEDICARE, SELFPAY ==
--- OUTSIDE RECORDS SUMMARY | 2023-12-14 02:27 | XMS_ITS | Continuity of Care Document ---
Author Organization [place] [facility], [facility] Address [address] [place] [id number] Care Team Providers Care Commercial Real Estate Paralegal Name Role Phone JERMAN OCASIO Primary Care Provider [phone] Assessment No assessment recorded. Plan of Treatment Reminders Order Date Submit Date Provider Last Modified By Organization Details Last Modified Time Details Appointments None recorded. Lab influenza virus A + B + SARS-CoV-2 (COVID19) Ag panel, rapid IA, upper respiratory specimen [email or web address] [facility], [address] [place] [address], [address] [address], [place], [address], 4 18:02:42 rapid strep group A, throat [id number] [facility], [address] [place] [address], [address] [address], [place], [address], 18:02:43 Referral None recorded. Procedures None recorded. Surgeries None recorded. Imaging None recorded. Medication Orders azithromyci n 250 mg tablet 2023 024 [facility], [address] [place], [address], 18:02:42 Patient TargetsNo targets recorded. Patient Instructions Encounter Date Encounter Id Patient Instructions Last Modified By Organization Details Last Modified Time 09/14/2023 [id number] strep throat: care instructions [email or web address] Not available 09/14/2023 18:10:40 Reason for Referral None Reported. Results Created Date Observation Date Name Description Value Unit Range Abnormal Flag LastModifiedBy Organization Detail LastModifiedTime 09/14/19 24 09/14/2023 influ olivia virus A + B + SARS- CoV-2 (COVI D19) Ag panel , rapid IA, upper respi rator y speci men Influenza A negati ve Not Available [address] [address], [place], [address], 09/14/2023 17:39:51 09/14/19 24 09/14/2023 influ olivia virus A + B + SARS- CoV-2 (COVI D19) Ag panel , rapid IA, upper respi rator y speci men Influenza B negati ve Not Available [address] [address], [place], [address], 09/14/2023 17:39:51 09/14/19 24 09/14/2023 influ olivia virus A + B + SARS- CoV-2 (COVI D19) Ag panel , rapid IA, upper respi rator y speci men SARS-COV-2 negati ve Not Available [address], [place], [address], 09/14/2023 17:39:51 09/14/19 24 09/14/2023 rapid strep group A, throa t Strep positi ve Not Available [address] [address], [place], [address], 09/14/2023 17:40:19 Result Notes None recorded. Problems Name Status Onset Date Resolution Date Notes Provider Name and Address Organization Details Recorded Time Otitis externa of right ear Active 021 Problem Code: H60.91; Problem Code Type: ICD-10; Not Available [facility] 3 06:00:40 Acute sinusitis Active 022 Problem Code: J01.90; Problem Code Type: ICD-10; Not Available [facility] 3 06:00:40 Disorder of nasal sinus Active 023 Not Available [facility] 3 06:00:40 Noninflammatory disorder of the vagina Completed 023 02/27/2023 Problem Code: N89.8; Problem Code Type: ICD-10; Not Available [facility] 3 06:00:40 Acute vaginitis Completed 023 02/03/2023 Problem Code: N76.0; Problem Code Type: ICD-10; Not Available [facility] 3 06:00:41 Vaginal discharge Active [address], [place], [address] [facility] 4 16:45:08 Problem Notes None recorded. Medical Equipment None Reported. Allergies Allergen ID Allergen Name Allergen Category Reaction Reaction Severity Criticality Documentation Date Start Date Code Code System Note Provider Name and Address Organization Details Recorded Time 20141 amoxicill in trihydrat e medicatio n rash mild Not available 04/10/20232020 55583 8 RxNorm Bethany Pabon RN null, [facility] 4 14:32:51 17083 Medicinal product containin g penicilli n and acting as antibacte rial agent (product) medicatio n rash mild Not available 04/10/20232020 97741 05 SNOMED Bethany aPbon RN null, [facility] 4 14:32:48 86214 codeine medicatio n hallucina tions severe Not available 04/10/20232020 2670 RxNorm Bethany Pabon RN null, [facility] 4 14:32:43 99133 naproxen medicatio n other mild low 07/15/2023 7258 RxNorm Ulcer s Bethany Pabon RN null, [facility] 4 14:33:13 Medications Name Sig Start [...] propionate 50 mcg/actuati on nasal spray,suspe nsion [place] 1 spray into both nostrils twice a [...] Last Updated DateTime 162.56 cm 26.9 kg/m2 76254 g 98.5 [degF] 99 % 99 % 97 /min 18 /min 109 mm[Hg] 73 mm[Hg] Alie Dudley MA [facility] 17:19:54 Social History Question Answer Notes LastModified by Organizat ion Details LastModified Time Tobacco Smoking Status Current Every Day Smoker Bethany Pabon RN null, [facility] 07/15/2023 14:35:48 What Was The Date [...] Recorded Time Tdap 04/20/2014 completed Not Available [facility] 06:11:15 pneumococcal polysaccharide PPV23 04/01/2021 completed Not Available [facility] 2022 06:11:16 influenza, unspecified formulation 06/30/2022 completed Not Available [facility] 04/10/2023 06:11:16 influenza, unspecified formulation 02/27/2023 completed Bethany Pabon RN [facility] 07/15/2023 14:18:05 Past Encounters Encounter ID Performer Location Encounter Start Date Encounter Closed Date Diagnosis/Indication Diagnosis SNOMED-CT Code [id number] TOI KING [address] [place] [address] 09/14/2023 16:51:45 09/14/2023 18:36:33 Streptococcal sore throat [id number] Health Concerns Section Related Observation LastModified by Organization Detai ls LastModified Time None Recorded Concern Status LastModified by Organization Details LastModified Time None Recorded Payers Encounter Date Sequence Insurance Name Policy Number Policy Dup[place] Covered Member ID [place] Member ID Guarantor Name 09/14/2023 1 [place] [employer] Bobaaron L Fissette [id number] 2 Muriel Fissette Notes Date Note Type [...] infections. JERMAN HUYNH, TOI [address], [place], [address], [facility]. 09/14/2023 18:11:23 OBGyn Episode No OBEpisode recorded.
--- OUTSIDE RECORDS SUMMARY | 2023-12-14 02:27 | XMS_ITS | Data Portability ---
Author Organization [place] - [facility] [place] [address] Care Team Providers Care Thermoscrew Operator Name Role Phone SUJATA OCASIOSSICA Primary Care Provider Assessment No assessment recorded. Plan of Treatment Reminders Order Date Submit Date Provider Last Modified By Organization Details Last Modified Time Details Appointments None recorded. Lab urinalysis, dipstick 2023 [email or web address], [facility] [place], [address], 4 15:06:32 test, urine 2023 [email or web address], [address], [address], 4 15:06:32 bacterial vaginosis + vaginitis panel, vaginal 2023 024 ALONZO [facility] (Registration ), [address] [place] [address] [place], [address], 4 13:55:37 urinalysis, dipstick 2023 [email or web address], [facility] [place], [address], 4 16:23:38 bacterial vaginosis + vaginitis panel, vaginal 2023 [facility] (Registration ), [address] [place] [address] [place], [address], 4 10:13:57 CT + NG RNA, PCR, unspecified specimen 2023 [facility] (Registration ), [address] [place] [address] [place], [address], 4 08:58:36 influenza virus A + B + SARS-CoV-2 (COVID19) Ag panel, rapid IA, upper respiratory specimen 2023 024 [email or web address] [facility], [address] [place] [address], [facility] 2, [place], [address], 4 18:02:42 rapid strep group A, throat 2023 024 [facility], [address] [place] [address], [address], [place], [address], 4 18:02:43 Referral None recorded. Procedures None recorded. Surgeries None recorded. Imaging None recorded. Medication Orders azithromyci n 250 mg tablet 2023 GREEN[facility], [address] [place], [address], 4 18:02:42 Patient TargetsNo targets recorded. Patient Instructions Encounter Date Encounter Id Patient Instructions Last Modified By Organization Details Last Modified Time 07/17/2023 [id number] 1. Today we did a vaginal exam and I sent 2 swabs for testing. I will have the vaginal pathogen screen back tomorrow and I will communicate those results as soon as we are available to do so. This test is for yeast, bacterial vaginosis and trichomonas. 2. The other test was for gonorrhea chlamydia. That is a send out to [facility] and back and does take an additional few days. As soon as that returns we will communicate results to you as well. [email or web address] Not available 07/17/2023 16:29:58 09/14/2023 [id number] strep throat: care instructions [email or web address] Not available 09/14/2023 18:10:40 Reason for Referral None Reported. Results Created Date Observation Date Name Description Value Unit Range Abnormal Flag LastModifiedBy Organization Detail LastModifiedTime 07/15/19 24 07/15/2023 VAGIN AL PATHO GEN SCREE N vaginal pathogen screen Not Available [facility] (Registration ) [address], [place], [address], 07/15/2023 22:40:20 07/15/19 24 07/15/2023 urina lysis , dipst ick Leukocytes Modera te Not Available [address] [address], [place], [address], 07/15/2023 14:39:24 07/15/19 24 07/15/2023 urina lysis , dipst ick Nitrite negati ve Not Available [address] [address], [place], [address], 07/15/2023 14:39:24 07/15/19 24 07/15/2023 urina lysis , dipst ick Urobilinogen .2 Not Available [address] [address], [place], [address], 07/15/2023 14:39:24 07/15/19 24 07/15/2023 urina lysis , dipst ick Protein Negati ve Not Available [address] [address], [place], [address], 07/15/2023 14:39:24 07/15/19 24 07/15/2023 urina lysis , dipst ick pH 5.0 Not Available [address] [address], [place], [address], 07/15/2023 14:39:24 07/15/19 24 07/15/2023 urina lysis , dipst ick Blood Negati ve Not Available [address], [place], [address], 07/15/2023 14:39:24 07/15/19 24 07/15/2023 urina lysis , dipst ick Specific Donahue 1.005 Not Available [address], [place], [address], 07/15/2023 14:39:24 07/15/19 24 07/15/2023 urina lysis , dipst ick Ketone Negati ve Not Available [address], [place], [address], 07/15/2023 14:39:24 07/15/19 24 07/15/2023 urina lysis , dipst ick Bilirubin Negati ve Not Available [address], [place], [address], 07/15/2023 14:39:24 07/15/19 24 07/15/2023 urina lysis , dipst ick Glucose Negati ve Not Available [address], [place], [address], 07/15/2023 14:39:24 07/15/19 24 07/15/2023 urina lysis , dipst ick Appearance Clear Not Available [address], [place], [address], 07/15/2023 14:39:24 07/15/19 24 07/15/2023 urina lysis , dipst ick Color Yellow Not Available [address], [place], [address], 07/15/2023 14:39:24 07/15/19 24 07/15/2023 pregn alex test, urine HCG negati ve Not Available [address], [place], [address], 07/15/2023 14:39:25 07/17/19 24 07/17/2023 VAGIN AL PATHO GEN SCREE N vaginal pathogen screen abnormal Not Available [facility] (Registration ) [address] [place] [address] [place], [address], 07/17/2023 23:09:00 07/17/19 24 07/19/2023 CHLAM YDIA/ GC AMPLI FIED RNA chlamydia result Negati ve negati ve Not Available [facility] (Registration ) [address] [place] [address] [place], [address], 07/20/2023 08:48:10 07/17/19 24 07/19/2023 CHLAM YDIA/ GC AMPLI FIED RNA GC result Negati ve negati ve Not Available [facility] (Registration ) [address] [place] [address] [place], [address], 07/20/2023 08:48:10 07/17/19 24 07/17/2023 urina lysis , dipst ick Leukocytes Large Not Available [address], [place], [address], 07/17/2023 15:40:32 07/17/19 24 07/17/2023 urina lysis , dipst ick Nitrite negati ve Not Available [address], [place], [address], 07/17/2023 15:40:32 07/17/19 24 07/17/2023 urina lysis , dipst ick Urobilinogen .2 Not Available [address]ilar[address], [place], [address], 07/17/2023 15:40:32 07/17/19 24 07/17/2023 urina lysis , dipst ick Protein Trace Not Available Fernanda rodriguez [address], [place], [address], 07/17/2023 15:40:32 07/17/19 24 07/17/2023 urina lysis , dipst ick pH 5.0 Not Available Fernanda rodriguez [address], [place], [address], 07/17/2023 15:40:32 07/17/19 24 07/17/2023 urina lysis , dipst ick Blood Small Not Available [facility] [address], [place], [address], 07/17/2023 15:40:32 07/17/19 24 07/17/2023 urina lysis , dipst ick Specific Donahue 1.005 Not Available [address], [place], [address], 07/17/2023 15:40:32 07/17/19 24 07/17/2023 urina lysis , dipst ick Ketone Negati ve Not Available [address], [place], [address], 07/17/2023 15:40:32 07/17/19 24 07/17/2023 urina lysis , dipst ick Bilirubin Negati ve Not Available [address], [place], [address], 07/17/2023 15:40:32 07/17/19 24 07/17/2023 urina lysis , dipst ick Glucose 250 Not Available [facility] [address], [place], [address], 07/17/2023 15:40:32 07/17/19 24 07/17/2023 urina lysis , dipst ick Appearance Cloudy Not Available Gennaro schneider [address], [place], [address], 07/17/2023 15:40:32 07/17/19 24 07/17/2023 urina lysis , dipst ick Color Yellow Not Available [facility] [address] [address], [place], [address], 07/17/2023 15:40:32 09/14/19 24 09/14/2023 influ olivia virus A + B + SARS- CoV-2 (COVI D19) Ag panel , rapid IA, upper respi rator y speci men Influenza A negati ve Not Available [address] [address], [place], [address], 09/14/2023 17:39:51 09/14/19 24 09/14/2023 influ olivia virus A + B + SARS- CoV-2 (COVI D19) Ag panel , rapid IA, upper respi rator y speci men Influenza B negati ve Not Available [address], [place], [address], 09/14/2023 17:39:51 09/14/19 24 09/14/2023 influ olivia virus A + B + SARS- CoV-2 (COVI D19) Ag panel , rapid IA, upper respi rator y speci men SARS-COV-2 negati ve Not Available [address], [place], [address], 09/14/2023 17:39:51 09/14/19 24 09/14/2023 rapid strep group A, throa t Strep positi ve Not Available [address], [place], [address], 09/14/2023 17:40:19 Result Notes None recorded. Problems Name Status Onset Date Resolution Date Notes Provider Name and Address Organization Details Recorded Time Otitis externa of right ear Active 021 Problem Code: H60.91; Problem Code Type: ICD-10; Not Available [facility] 3 06:00:40 Acute sinusitis Active 022 Problem Code: J01.90; Problem Code Type: ICD-10; Not Available [facility] 3 06:00:40 Disorder of nasal sinus Active 023 Not Available [facility] 3 06:00:40 Noninflammatory disorder of the vagina Completed 023 02/27/2023 Problem Code: N89.8; Problem Code Type: ICD-10; Not Available [facility] 3 06:00:40 Acute vaginitis Completed 023 02/03/2023 Problem Code: N76.0; Problem Code Type: ICD-10; Not Available [facility] 3 06:00:41 Vaginal discharge Active [address], [place], [address] , [facility] 4 16:45:08 Problem Notes None recorded. Medical Equipment None Reported. Allergies Allergen ID Allergen Name Allergen Category Reaction Reaction Severity Criticality Documentation Date Start Date Code Code System Note Provider Name and Address Organization Details Recorded Time 87365 amoxicill in trihydrat e medicatio n rash mild Not available 04/10/20232020 78999 8 RxNorm Bethany Pabon RN [facility], [facility] 4 14:32:51 37930 Medicinal product containin g penicilli n and acting as antibacte rial agent (product) medicatio n rash mild Not available 04/10/20232020 71402 05 SNOMED Bethany Pabon RN null, [facility] 4 14:32:48 67224 codeine medicatio n hallucina tions severe Not available 04/10/20232020 2670 RxNorm Bethany Pabon RN null, [facility] 4 14:32:43 77176 naproxen medicatio n other mild low 07/15/2023 7258 RxNorm Ulcer s Bethany Pabon RN null, [facility] 4 14:33:13 Medications Name Sig [...] propionate 50 mcg/actuati on nasal spray,suspe nsion [place] 1 spray into both nostrils twice a [...] Updated DateTime 4 162.56 cm 27.5 kg/m2 16769.7 8 g 97.7 [degF] 17 /min 99 % 99 % 97 /min 127 mm[Hg] 88 mm[Hg] Bethany Pabon RN [facility] 4 14:32:26 Date Recorded Body height Body mass index (BMI) Body weight Respiratory rate Oxygen saturation Oxygen saturation in Arterial blood by Pulse oximetry Heart rate Body temperature Systolic blood pressure Diastolic blood pressure Provider Name and Address Organization Details Last Updated DateTime 4 162.56 cm 27.5 kg/m2 63123.7 8 g 20 /min 98 % 98 % 96 /min 97.7 [degF] 123 mm[Hg] 88 mm[Hg] Jerman Sargent MA [facility] 4 15:38:40 Date Recorded Body height Body mass index (BMI) Body weight Body temperature Oxygen saturation Oxygen saturation in Arterial blood by Pulse oximetry Heart rate Respiratory rate Systolic blood pressure Diastolic blood pressure Provider Name and Address Organization Details Last Updated DateTime 162.56 cm 26.9 kg/m2 14925 g 98.5 [degF] 99 % 99 % 97 /min 18 /min 109 mm[Hg] 73 mm[Hg] Alie Dudley MA [facility] 4 17:19:54 Social History Question Answer Notes LastModified by Organizat ion Details LastModified Time Tobacco Smoking Status Current Every Day Smoker Bethany Pabon RN [facility], [facility] 07/15/2023 14:35:48 What Was The [...] Recorded Time Tdap 04/20/2014 completed Not Available [facility] 06:11:15 pneumococcal polysaccharide PPV23 04/01/2021 completed Not Available [facility] 2022 06:11:16 influenza, unspecified formulation 06/30/2022 completed Not Available [facility] 04/10/2023 06:11:16 influenza, unspecified formulation 02/27/2023 completed Bethany Pabon RN [facility], [place] - [facility] 07/15/2023 14:18:05 Past Encounters Encounter ID Performer Location Encounter Start Date Encounter Closed Date Diagnosis/Indication Diagnosis SNOMED-CT Code [id number] JERMAN HUYNH JUNIOR MANUFACTURING ENGINEER [address] [place] [address] 07/15/2023 14:12:42 07/15/2023 15:37:29 Vaginal irritation [id number] JOON PERAZA PA-C [address] [place] [address] 07/17/2023 14:14:57 07/17/2023 16:33:37 Vaginal discharge [id number] JERMAN HUYNH [address] [place] [address] 09/14/2023 16:51:45 09/14/2023 18:36:33 Streptococcal sore throat [id number] Health Concerns Section Related Observation LastModified by Organization Detai ls LastModified Time None Recorded Concern Status LastModified by Organization Details LastModified Time None Recorded Advance Directives Directive None Recorded Payers Encounter Date Sequence Insurance Name Policy Number Policy Dupont Covered Member ID Dupont Member ID Guarantor Name 07/15/2023 1 [place] [employer] Bobbijo L Fissette [id number] 2 Bobbijo Fissette 07/17/2023 1 [place] [employer] Bobbijo L Fissette [id number] 2 Bobbijo Fissette 09/14/2023 1 [place] [facility]iel Sevilla [facility] [id number] 2 Muriel Hager Notes Date Note Type [...] Flagyl treatment. TOI KING [address], [place], [address], [facility]. 07/15/2023 15:22:46 07/17/2023 text/html HPI Notes: [...] testing. JOON PERAZA PA-C [address], [place], [address], [facility]. 07/17/2023 16:45:26 09/14/2023 text/html HPI Notes: [...] infections. JERMAN HUYNH, TOI [address], [place], [address], [facility]. 09/14/2023 18:11:23 OBGyn Episode No OBEpisode recorded.
--- OUTSIDE RECORDS SUMMARY | 2023-12-14 02:28 | XMS_ITS | Encounter Summary ---
Author Organization [facility] [place] [address] Care Team Providers Care Corrosion Control Fitter Name Role Phone Aneta Perez Primary Care Provider [phone] Encounter Details Date Type Department Care Team [...] on filedocumented in this encounter Care Teams Corrosion Control Fitter Relationship Specialty Start Date End Date Aneta Perez PA [address] [place] [address] PCP - General Family Medicine 10/17/19 documented as of this encounter
--- OUTSIDE RECORDS SUMMARY | 2023-12-14 02:28 | XMS_ITS | Encounter Summary ---
Author Organization [facility] [place] [address] Care Team Providers Care University President Name Role Phone Aneta Perez Primary Care Provider [phone] Encounter Details Date Type Department Care Team [...] on filedocumented in this encounter Care Teams University President Relationship Specialty Start Date End Date Aneta Perez PA [address] [place] [address] PCP - General Family Medicine 10/17/19 documented as of this encounter
--- OUTSIDE RECORDS SUMMARY | 2023-12-14 02:28 | XMS_ITS | Encounter Summary ---
[place] [address] Care Team Providers Care Income Tax Adjuster Name Role Phone Aneta Perez Primary Care Provider [phone] Encounter Details Date Type Department Care Team ([facility] st Contact Info) Description 05/20/2022 Telephone [place] [phone] Anna Rodriguez MA Social History Tobacco Use [...] on filedocumented in this encounter Care Teams Income Tax Adjuster Relationship Specialty Start Date End Date Aneta Perez PA [address] [place] [address] PCP - General Family Medicine 10/17/19 documented as of this encounter
--- OUTSIDE RECORDS SUMMARY | 2023-12-14 02:28 | XMS_ITS | Encounter Summary ---
Author Organization [facility] Address [facility] [place] [address] Care Team Providers Care Parimutuel Ticket Seller Name Role Phone Aneta Perez Primary Care Provider [phone] Reason for Referral * Occupational Therapy (Routine) - Closed Specialty Diagnoses / Procedures Referred By Roberto palomares Referred To Contact Occupational Therapy Diagnoses Surgery follow-up DOS Pending Ulises Parry MD [facility] [place] [address] [facility] [address] [place] [address] Referral ID Status Reason Start Date Expiration Date V isits Requested Visits Authorized [id number] Closed Evaluate and Treat 06/25/2022 06/25/2023 30 30 Reason for Visit * Consultation (Routine) - Closed Specialty Diagnoses / Procedures Referred By Roberto palomares Referred To Contact Plastic Surgery Diagnoses Rheumatoid arthritis involving multiple sites with positive rheumatoid factor Rupture of extensor tendon of hand, unspecified laterality, sequela LeeZak MD [facility] [address] Ulises Parry MD [facility] [place] [address] Referral ID Status Reason Start Date Expiration Date V isits Requested Visits Authorized [id number] Closed Consult, Test & Treat 05/26/2022 05/26/2023 1 1 Encounter Details Date Type Department Care Team (Late st Contact Info) Description 06/25/2022 1:30 PM EST Office Visit Plastic Surgery at [address] [place] [address] Ulises aPrry MD [facility] [place] [address] Surgery follow-up Social History Tobacco Use Types [...] this encounter Patient Instructions * Patient Instructions* Lunba Edward, Ayah - 06/25/2022 1:30 PM EST [...] brush. DO NOT wear any rings, nail german or artifical nails. The Same Day Surgery [...] to your surgery. Day of Surgery A bus driver/monitor is required at time of discharge. If [...] pm) For an appointment or insurance questions [phone] For questions pertaining to your surgical date [phone] For nursing related questions [phone] On weekends, holidays or after office hours: Call [phone] and ask the cotton weigher operator to page the Plastic Surgery Resident cable installation manager. documented in this encounter Progress Notes [...] (mid-July) Procedure: kat reconstruction, redo FTP CPT: 00950, 16941 Surgical site: hand Side: left Anesthesia: Mac [...] surgery documented in this encounter Care Teams Parimutuel Ticket Seller Relationship Specialty Start Date End Date Aneta Perez PA [address] [place] [address] PCP - General Family Medicine 10/17/19 documented as of this encounter
--- OUTSIDE RECORDS SUMMARY | 2023-12-14 02:28 | XMS_ITS | Encounter Summary ---
Author Organization [facility] [place] [address] Care Team Providers Care Scale Model Maker Name Role Phone Aneta Perez Primary Care Provider [phone] Encounter Details Date Type Department Care Team (Late st Contact Info) Description 07/25/2021 Telephone [place] [phone] Juan Manuel Sapp RN Social History Tobacco [...] PM EST Liset calls to advise that [facility] does not have her infusion and they were advised it will not be delivered until next Thursday. Wants Rheumatology to do something about this. RTC to Liset and the infusion arrived today sooner than expected. documented in this encounter Plan of Treatment Not on file documented as of this encounter Visit Diagnoses Not on filedocumented in this encounter Care Teams Scale Model Maker Relationship Specialty Start Date End Date Aneta Perez PA [address] [place] [address] PCP - General Family Medicine 10/17/19 documented as of this encounter
--- OUTSIDE RECORDS SUMMARY | 2023-12-14 02:28 | XMS_ITS | Encounter Summary ---
Author Organization [facility] Address [facility] [place] [address] Care Team Providers Care Gas Producer Name Role Phone Aneta Perez Primary Care Provider [phone] Encounter Details Date Type Department Care Team (Late st Contact Info) Description 07/30/2022 2:30 PM EST Office Visit Plastic Surgery at [facility] [address] [place] [address] Ulises Parry MD [facility] [place] [address] H/O hand surgery Social History Tobacco Use [...] organs documented in this encounter Care Teams Gas Producer Relationship Specialty Start Date End Date Aneta Perez PA [address] [place] [address] PCP - General Family Medicine 10/17/19 documented as of this encounter
--- OUTSIDE RECORDS SUMMARY | 2023-12-14 02:28 | XMS_ITS | Encounter Summary ---
Author Organization [facility] [place] [address] Care Team Providers Care Combat Engineer Name Role Phone Aneta Perez Primary Care Provider [phone] Encounter Details Date Type Department Care Team (Late st Contact Info) Description 07/11/2022 Telephone [place] [phone] Uzma Ocasio Social History Tobacco Use Types [...] on filedocumented in this encounter Care Teams Combat Engineer Relationship Specialty Start Date End Date Aneta Perez PA [address] [place] [address] PCP - General Family Medicine 10/17/19 documented as of this encounter
--- OUTSIDE RECORDS SUMMARY | 2023-12-14 02:28 | XMS_ITS | Encounter Summary ---
Author Organization [facility] [place] [address] Care Team Providers Care Radiographer Mammographer Name Role Phone Aneta Perez Primary Care Provider [phone] Encounter Details Date Type Department Care Team (Late st Contact Info) Description 01/14/2023 Notes Only [address] [place] [address] Funmi Parker RN Social History [...] Parker RN - 01/14/2023 10:47 AM EDT [facility] [place] Babitaabhijit Hager [phone] Allergies Allergen Reactions Milk Other (See [...] answer/voicemail left 1050-No return call from patient, [facility] Enrique Corado MD/Zak carrasco, Juan Manuel Juarez RNnotified & patient removed from schedule. documented in this encounter Plan of Treatment Not on file documented as of this encounter Visit Diagnoses Not on filedocumented in this encounter Care Teams Radiographer Mammographer Relationship Specialty Start Date End Date Aneta Perez PA [address] [place] [address] PCP - General Family Medicine 10/17/19 documented as of this encounter
--- OUTSIDE RECORDS SUMMARY | 2023-12-14 02:28 | XMS_ITS | Encounter Summary ---
Author Organization [facility] Address [facility] [place] [address] Care Team Providers Care Console Operator Name Role Phone Aneta Perez Primary Care Provider [phone] Reason for Visit * Occupational Therapy (Routine) - Closed Specialty Diagnoses / Procedures Referred By Roberto palomares Referred To Contact Occupational Therapy Diagnoses Surgery follow-up DOS Pending Ulises Parry MD [facility] [place] [address] [facility] [address] [place] [address] Referral ID Status Reason Start Date Expiration Date V isits Requested Visits Authorized [id number] Closed Evaluate and Treat 06/25/2022 06/25/2023 30 30 Encounter Details Date Type Department Care Team (Late st Contact Info) Description 07/30/2022 2:30 PM EST Office Visit Occupational Therapy at [facility] [address] [place] [address] Shyanne Brar OT Pain in [...] your head No difficulty 7. Do heavy associate program manager (eg wash morrison, wash floors) Unable 8. [...] move your arm freely (eg playing frisbee, [email or web address], etc) Unable 20. Manage transportation needs (getting [...] With Activity: 12/08 Treatment Today: Orthosis - Jfepk-Vrhf-Ltubxn Orthotic, Rigid, WO Jts, Custom Fit & Adj ([id number]) Educated patient in etiology and biomechanics as related to patient's symptoms Fabricated forearm based dorsal blocking orthosis for digits 2-5, thumb free Instructed in orthosis wear and care astronaut mission specialist Range of Motion Exercises: PROM DIP flex/ext [...] to f/u with outpatient hand therapy at [facility] (X) Liset Hager participated in the evaluation, [...] limb documented in this encounter Care Teams Console Operator Relationship Specialty Start Date End Date Aneta Perez PA [address] [place] [address] PCP - General Family Medicine 10/17/19 documented as of this encounter
--- OUTSIDE RECORDS SUMMARY | 2023-12-14 02:28 | XMS_ITS | Encounter Summary ---
Author Organization [facility] Address [facility] [place] [address] Care Team Providers Care Receiving Weigher Name Role Phone Aneta Perez Primary Care Provider [phone] Reason for Referral * Occupational Therapy (Routine) - Closed Specialty Diagnoses / Procedures Referred By Roberto palomares Referred To Contact Diagnoses Tendon rupture of wrist, left, initial encounter Ulises Parry MD [facility] [place] [address] Unknown None Referral ID Status Reason Start Date Expiration Date V isits Requested Visits Authorized [id number] Closed Evaluate and Treat 10/04/2020 04/02/2021 12 12 Encounter Details Date Type Department Care Team (Late st Contact Info) Description 10/04/2020 Orders Only [place] [address] Ulises Parry MD [facility] [place] [address] Tendon rupture of wrist, left, initial encounter [...] encounter documented in this encounter Care Teams Receiving Weigher Relationship Specialty Start Date End Date Aneta Perez PA [address] [place] [address] PCP - General Family Medicine 10/17/19 documented as of this encounter
--- OUTSIDE RECORDS SUMMARY | 2023-12-14 02:28 | XMS_ITS | Encounter Summary ---
Author Organization [facility] Address [facility] [place] [address] Care Team Providers Care Foam Charger Name Role Phone Aneta Perez Primary Care Provider [phone] Reason for Visit * Occupational Therapy (Routine) - Closed Specialty Diagnoses / Procedures Referred By Roberto palomares Referred To Contact Occupational Therapy Diagnoses Surgery follow-up Surgery follow-up Procedures Evaluate and Treat Ulises Parry MD [facility] [place] [place] [address] [facility] Ot [address] [place] [address] Referral ID Status Reason Start Date Expiration Date V isits Requested Visits Authorized [id number] Closed Evaluate and Treat 09/06/2020 09/06/2021 30 30 Encounter Details Date Type Department Care Team (Late st Contact Info) Description 10/03/2020 10:30 AM EDT Office Visit Occupational Therapy at [facility] [address] [place] [address] Tucker Wiggins OT [facility] PHYSICAL MEDICINE & [place] [address] Pain in finger of left [...] Code Treatment Time: 30 minutes OCCUPATIONAL PROFILE: Liest Hager is a 40 y.o. year old [...] this facility and has received OT from [facility]. The MD will set up an external [...] limb documented in this encounter Care Teams Foam Charger Relationship Specialty Start Date End Date Aneta Perez PA [address] [place] [address] PCP - General Family Medicine 10/17/19 documented as of this encounter
--- OUTSIDE RECORDS SUMMARY | 2023-12-14 02:28 | XMS_ITS | Encounter Summary ---
Author Organization [facility] [place] [address] Care Team Providers Care Rig Site Engineer Name Role Phone Aneta Perez Primary Care Provider [phone] Encounter Details Date Type Department Care Team [...] on filedocumented in this encounter Care Teams Rig Site Engineer Relationship Specialty Start Date End Date Aneta Perez PA [address] [place] [address] PCP - General Family Medicine 10/17/19 documented as of this encounter
--- OUTSIDE RECORDS SUMMARY | 2023-12-14 02:28 | XMS_ITS | Encounter Summary ---
Author Organization [facility] Address [facility] [place] [address] Care Team Providers Care Cooker Pie Filling Name Role Phone Aneta Perez Primary Care Provider [phone] Reason for Visit * Reason Comments Follow Up Surgery Encounter Details Date Type Department Care Team (Late st Contact Info) Description 08/20/2022 10:45 AM EDT Office Visit Plastic Surgery at [facility] [address] [place] [address] Ulises Parry MD [facility] [place] [address] Surgery follow-up Social History Tobacco Use Types [...] surgery documented in this encounter Care Teams Cooker Pie Filling Relationship Specialty Start Date End Date Aneta Perez PA [address] [place], [place] [id number] PCP - General Family Medicine 10/17/19 documented as of this encounter
--- OUTSIDE RECORDS SUMMARY | 2023-12-14 02:28 | XMS_ITS | Encounter Summary ---
[place] [address] Care Team Providers Care Sat Tutor Name Role Phone Aneta Perez Primary Care Provider [phone] Reason for Visit * Auth/Cert Specialty Diagnoses / Procedures Referred By Roberto t Referred To Contact Diagnoses finger issue Procedures PRO HAND TENDON KETTY RECONST, GRAFT RECONSTRUCT TENDON KETTY, EA TENDON, W/ TENDON OR FASCIAL GRAFT (WRVU 7.31) Referral ID Status Reason Start Date Expiration Date Visits Re quested Visits Authorized [id number] 1 1 Encounter Details Date Type Department Care Team (Late st Contact Info) Description 10/01/2020 8:50 AM EDT - 10/01/2020 10:10 AM EDT Surgery Outpatient [place] [address] Ulises Parry MD [facility] [place] [address] RECONSTRUCT TENDON KETTY, EA TENDON, W/ TENDON [...] closest emergency room or call the hospital monotype keyboard operator at [phone] and ask for physician instructional resource teacher covering for your physician. Questions or problems after 5pm or on a weekend: Call the [facility] monotype keyboard operator at and ask for the physician instructional resource teacher covering for your doctor. At 0800 am [...] also take motrin/ibuprofen/aleve for pain. You may [id number] mg of motrin every 6-8 hours for pain. If your pain is still not controlled, you may take the narcotic pain medication prescribed for you. Do not drive or operate machinery while taking narcotic pain medications. If taking narcotics, we recommend taking an oulm-dfx-kudzbaf stool softener to prevent constipation. Call our [...] about scheduling, please contact our administrative officesat [phone] For clinical questions, please call our nurses at [phone] Both offices are open Thursday thru Thursday 8a - 5p. With emergencies after hours, call the hospital monotype keyboard operator at [phone] and ask for the Plastic Surgery Resident instructional resource teacher. Our office will contact you to schedule [...] patient was questioned regarding travel outside of [place] states, fever, cough, SOB or other illness [...] again, temperature will be taken, patient and caregiver/driver engineer will be given a mask to wear the entire time they are in the [facility] building. * Yudelka Toro RN - 09/24/2020 3:57 PM EDT During this call the patient was questioned regarding travel outside of [place] states, fever, cough, SOB or other illness [...] again, temperature will be taken, patient and caregiver/driver engineer will be given a mask to wear the entire time they are in the [facility] building. documented in this encounter H&P Notes * Molly Ramos MD - 10/01/2020 8:23 AM EDT Plastic Surgery Preoperative H&P: Patient Name: Liset Hager Patient : [id number] Today's Date: 10/01/2020 iLset Hager is a 40 y.o. female here for ketty reconstruction of left index finger. No changes since last seen. History reviewed. No pertinent past medical history. Past Surgical History: Procedure Laterality Date ? ? PRO ADJ TISS XFER HEAD, FAC, HAND <10SQCM Left 03/26/2020 ADJ.TISSUE TRANSFER, REARRANGEMENT, 10SQ.CM OR LESS, HANDS (WRVU 8.6) performed by Monique Parry MD at [facility] ? ? PRO TENOLYSIS FLEX TENDON, PALM & FINGER, EA Left 12/05/2019 TENOLYSIS, FLEXOR TENDON, PALM AND FINGER EACH (WRVU 9.75) performed by Ulises Parry MD at [facility] ??? PRO TENOLYSIS, FLEX TENDON, PALM/FINGER, EA Left 03/26/2020 TENOLYSIS, FLEXOR TENDON, PALM OR FINGER, EACH (WRVU 5.16) performed by Ulises Parry MD at [facility] ??? PRO TRANSPLANT FOREARM/WRIST TENDON Left 03/26/2020 TENDON TRANSPLANT OR TRANSFER, FOREARM &,OR WRIST, SINGLE; EA (WRVU 8.08) performed by Ulises Parry MD at [facility] History reviewed. No pertinent [...] Gatherings with Friends and Family: ??? Attends Scientology Services: ??? Active Member of Clubs or [...] Molly Ramos MD Plastic Surgery Resident P# [id number] documented in this encounter Miscellaneous Notes * Brief Op Note - Molly Ramos MD - 10/01/2020 10:19 AM EDT Brief Operative Note Patient Name: Liset Hager : [id number] MR#: [id number] Case Date: 10/01/2020 Surgeon: Surgeon(s) and Role: [...] Parry MD - 10/01/2020 9:07 AM EDT [facility] [place] Patient Name: Liset Hager : [id number] MR#: [id number] Case Date: 10/01/2020 Surgeon: Surgeon(s) and Role: [...] Adj Tiss Transfer Head, Fac, Hand <10Sqcm ([id number]) 10/01/2020 8:44 AM EDT Surgery follow-up Hand Tendon Ketty Reconst, Graft ([id number]) 10/01/2020 8:44 AM EDT Surgery follow-up RECONSTRUCT [...] Comment: Switch to gravity)1028 (Restarted - Provider: eNlsy Sanches CRNA) PRN Medication Order 09/29/2020 09/30/2020 [...] site) documented in this encounter Care Teams Sat Tutor Relationship Specialty Start Date End Date Antea Perez PA [address] [place] [address] PCP - General Family Medicine 10/17/19 documented as of this encounter
--- OUTSIDE RECORDS SUMMARY | 2023-12-14 02:28 | XMS_ITS | Encounter Summary ---
Author Organization [facility] Address [facility] [place] [address] Care Team Providers Care Contracting Analyst Name Role Phone Aneta Perez Primary Care Provider [phone] Encounter Details Date Type Department Care Team (Late st Contact Info) Description 09/05/2022 12:00 PM EDT TH Visit (TeleHealth) [place] [address] Zak Lee MD [facility] DR RHEUMATOLOGY [place] [address] High risk medication use; Rheumatoid arthritis involving multiple sites with positive rheumatoid factor; Upper back pain; Other secondary osteoarthritis of multiple sites; Rupture of flexor tendon of finger; Cigarette smoker; Chronic pain of both knees; Other specified diabetes mellitus with other specified complication, unspecified whether extermination supervisor insulin use Social History Tobacco Use Types [...] PM EDT Rheumatology Clinic: Dr. Lee 09/05/2022 [id number] This is a TeleHealth telephone visit for [...] like to get that done up in [place], where she generally has her infusions. We'll will look into whether that is possible and how quickly it can be done. She is also due for lab work and we will have that done in [place] as well. Finally, we decided to get knee x-rays at [place]. However, if it appears that it is going to take a while to get the Rituxan infusion done in [place], we'll probably have her come down here for an in-person visit, get the labs and x-rays here, do a good exam, and possibly inject both knees. She brought up the possibility of getting the next Rituxan infusion down here, but I told her it was extremely unlikely that they would be able to get it done here more quickly than at [place]. In terms of her other medications, at [...] we'll check labs and the x-rays at [place]. We may have her come down here for further evaluation and possible knee injections depending on how long it takes to get the next infusion of Rituxan scheduled in [place]. She understood the plan. I'll see her in follow-up in 6 months regardless. Patient recommendations: 1. Single RTX infusion at [place] as soon as can be arranged. 2. Labs and knee x-rays while there. 3. No prednisone. 4. Consider cortisone injections if delay for RTX or if knees don't respond to RTX. 5. Consider adding Arava if ongoing issues. 6. Follow-up in 3 months. Total visit time: 50 minutes. Visit level: 37463. Visit Diagnoses: 1. High risk medication use [...] mellitus with other specified complication, unspecified whether extermination supervisor insulin use documented in this encounter Care Teams Contracting Analyst Relationship Specialty Start Date End Date Aneta Perez PA [address] [place] [address] PCP - General Family Medicine 10/17/19 documented as of this encounter
--- OUTSIDE RECORDS SUMMARY | 2023-12-14 02:28 | XMS_ITS | Encounter Summary ---
[place] [address] Care Team Providers Care Community Coordinator For High School Name Role Phone Aneta Perez Primary Care Provider [phone] Encounter Details Date Type Department Care Team (Late st Contact Info) Description 09/03/2022 Telephone [place] [address] Lala Holloway Social History Tobacco Use Types [...] on filedocumented in this encounter Care Teams Community Coordinator For High School Relationship Specialty Start Date End Date Aneta Perez PA [address] [place] [address] PCP - General Family Medicine 10/17/19 documented as of this encounter
--- OUTSIDE RECORDS SUMMARY | 2023-12-14 02:28 | XMS_ITS | Encounter Summary ---
Author Organization [facility] [place] [address] Care Team Providers Care Machines Technician Name Role Phone Aneta Perez Primary Care Provider [phone] Encounter Details Date Type Department Care Team (Late st Contact Info) Description 09/04/2022 [place] [address] Krissy De Leon RN Social History Tobacco [...] on filedocumented in this encounter Care Teams Machines Technician Relationship Specialty Start Date End Date Aneta Perez PA [address] [place] [address] PCP - General Family Medicine 10/17/19 documented as of this encounter
--- OUTSIDE RECORDS SUMMARY | 2023-12-14 02:28 | XMS_ITS | Encounter Summary ---
Author Organization [facility] [place] [address] Care Team Providers Care Aoc Director Intelligence Officer Name Role Phone Aneta Perez Primary Care Provider [phone] Encounter Details Date Type Department Care Team (Late st Contact Info) Description 07/28/2022 Telephone [place] [address] Krissy De Leon RN Social History Tobacco [...] PM EST TC from August at the [facility] asking for new orders and PA for the Rituxan. Fax to Facility. documented in this encounter Plan of Treatment Not on file documented as of this encounter Visit Diagnoses Not on filedocumented in this encounter Care Teams Aoc Director Intelligence Officer Relationship Specialty Start Date End Date Aneta Perez PA [address] [place] [address] PCP - General Family Medicine 10/17/19 documented as of this encounter
--- OUTSIDE RECORDS SUMMARY | 2023-12-14 02:28 | XMS_ITS | Encounter Summary ---
Author Organization [facility] [place] [address] Care Team Providers Care Restoration Officer Name Role Phone Aneta Perez Primary Care Provider Reason for Visit * Reason Onset Date Comments Medication Refill 05/22/2021 Encounter Details Date Type Department Care Team (Late st Contact Info) Description 05/22/2021 [place] [address] Zak Lee MD [facility] [place] [address] High risk medication use; Infusion reaction, subsequent [...] vomiting documented in this encounter Care Teams Restoration Officer Relationship Specialty Start Date End Date Aneta Perez PA [address] [place] [address] PCP - General Family Medicine 10/17/19 documented as of this encounter
--- OUTSIDE RECORDS SUMMARY | 2023-12-14 02:28 | XMS_ITS | Encounter Summary ---
Author Organization [facility] Address [facility] [place] [address] Care Team Providers Care Community Development Specialist Name Role Phone Aneta Perez Primary Care Provider [phone] Encounter Details Date Type Department Care Team (Late st Contact Info) Description 10/03/2020 10:30 AM EDT Office Visit Plastic Surgery at [facility] [address] [place] [address] Ulises Parry MD [facility] [place] [address] Surgery follow-up Social History Tobacco Use Types [...] surgery documented in this encounter Care Teams Community Development Specialist Relationship Specialty Start Date End Date Aneta Perez PA [address] [place] [address] PCP - General Family Medicine 10/17/19 documented as of this encounter
--- OUTSIDE RECORDS SUMMARY | 2023-12-14 02:28 | XMS_ITS | Encounter Summary ---
Author [facility] [place] [address] Care Team Providers Care Loft Worker Head Name Role Phone Aneta Perez Primary Care Provider [phone] Encounter Details Date Type Department Care Team (Late st Contact Info) Description 10/04/2020 Telephone [place] [address] Do Esposito Social History Tobacco Use Types [...] - 10/04/2020 7:37 AM EDT Tucker from [facility] (Occupational Therapy) asked if we could place a referral for patient to have OT closer to home per pt request. ([facility] pt) I have sent an inbasket to our nurses asking to place an external referral. documented in this encounter Plan of Treatment Not on file documented as of this encounter Visit Diagnoses Not on filedocumented in this encounter Care Teams Loft Worker Head Relationship Specialty Start Date End Date Aneta Perez PA [address] [place] [address] PCP - General Family Medicine 10/17/19 documented as of this encounter
--- OUTSIDE RECORDS SUMMARY | 2023-12-14 02:28 | XMS_ITS | Clinical Summary ---
Author Organization [facility] Address [facility] [place] [address] Care Team Providers Care Supply Chain Logistics Manager Name Role Phone Aneta Perez Primary Care Provider [phone] Allergies Active Allergy Reactions Criticality Noted Date [...] (09/06/2020): Added automatically from request for surgery [id number] Other specified diabetes gennaro litus with other specified complication 08/18/2020 Chronic pain of both knees 08/18/2020 Tendon rupture of wrist 02/16/2020 Overview (02/16/2020): Added automatically from request for surgery [id number] Tendon dysfunction 10/06/2019 Rheumatoid arthritis involvi ng [...] mellitus with other specified complication, unspecified whether termite inspector insulin use COMPREHENSIVE METABOLIC PANEL (NON-FASTING) Routine 04/11/2020 1:10 PM EST High risk medication use Rheumatoid arthritis involving multiple sites with positive rheumatoid factor Other specified diabetes mellitus with other specified complication, unspecified whether detention insulin use from Last 3 Months or Most Recently Relevant to Health Maintenance Results * (ABNORMAL) Hemoglobin A1c (04/11/2020 1:10 PM EST) Hemoglobin A1C 7.5(H) 4.3 - 5.6 % [facility] Comment: Reference Range: 4.3 - [...] Mellitus, Diabetes Care 2013; 36: Suppl. 1, H25-69 Est Avg Gluc 168 mg/dL [facility] Comment: eAG equivalents for HbA1c percentages: [...] into estimated average glucose values. ??Diabetes Care 2008:31(8):8269-2594. Blood specimen (specimen) 04/11/2020 1:10 PM EST 04/11/2020 1:15 PM EST Narrative Resulting Agency Comment Spec In Lab Zak Lee MD CHEMISTRY ORDERAB LES [facility] [place] [address] * (ABNORMAL) Comprehensive metabolic panel (non-fasting) (04/11/2020 1:10 PM EST) Glucose Lvl 312(H) 65 - 199 mg/dL [facility] Comment:Diabetes: >=200 mg/d L plus symptoms BUN 10 8 - 18 mg/dL [facility] Creatinine 0.81 0.70 - 1.20 mg/dL [facility] Sodium 136 135 - 145 mmol/L [facility] Potassium 3.9 3.5 - 5.0 mmol/L [facility] Comment: Please note: ??Patients with WBC >100,000 may have falsely elevated Potassium levels. ??For accurate Potassium quantification in these patients send serum separator tube (gold top) for subsequent determinations. ??Contact the Clinical Chemistry Laboratory if there are any questions. Chloride 99 98 - 107 mmol/L [facility] CO2 21(L) 22 - 31 mmol/L [facility] Anion Gap 16(H) 5 - 15 mmol/L [facility] Calcium 9.7 8.5 - 10.5 mg/dL [facility] Total Protein 8.1(H) 6.1 - 8.0 gm/dL [facility] Albumin 4.6 3.2 - 5.2 gm/dL [facility] AST 12 0 - 30 unit/L [facility] ALT 24 0 - 30 unit/L [facility] Alk Phos 148(H) 35 - 105 unit/L [facility] Total Bilirubin 0.2 0.2 - 1.3 mg/dL [facility] Estimated GFR 92 >=60 mL/min/1. 73 m?? [facility] Comment: The eGFR was calculated using the CKD-EPI equation. As with all creatinine based estimates of kidney function, eGFR values calculated with the CKD-EPI equation are not accurate in patients with acute kidney failure, extremes of body mass or the acutely ill. [email or web address] eGFR 107 >=60 mL/min/1. 73 m?? [facility] Comment: The eGFR was calculated using the CKD-EPI equation. As with all creatinine based estimates of kidney function, eGFR values calculated with the CKD-EPI equation are not accurate in patients with acute kidney failure, extremes of body mass or the acutely ill. [email or web address] Blood specimen (specimen) 04/11/2020 1:10 PM EST 04/11/2020 1:15 PM EST Narrative Resulting Agency Comment Spec In Lab Zak Lee MD [place] [address] from Last 3 Months or Most Recently Relevant to Health Maintenance Care Teams Supply Chain Logistics Manager Relationship Specialty Start Date End Date Aneta Perez PA [address] [place] [address] PCP - General Family Medicine 10/17/19
--- OUTSIDE RECORDS SUMMARY | 2023-12-14 02:28 | XMS_ITS | Encounter Summary ---
[place] [address] Care Team Providers Care Flexographic Press Set Up Operator Name Role Phone Aneta Perez Primary Care Provider [phone] Encounter Details Date Type Department Care Team (Late st Contact Info) Description 07/23/2022 Telephone [place] [phone] Adrianna Castillo Social History Tobacco Use Types [...] on filedocumented in this encounter Care Teams Flexographic Press Set Up Operator Relationship Specialty Start Date End Date Aneta Perez PA [address] [place] [address] PCP - General Family Medicine 10/17/19 documented as of this encounter
--- OUTSIDE RECORDS SUMMARY | 2023-12-14 02:28 | XMS_ITS | Encounter Summary ---
Author Organization [facility] [address] Care Team Providers Care Assembler Product Name Role Phone Aneta Perez Primary Care Provider [phone] Reason for Visit * Reason Onset Date Comments New Medication Request 02/20/2021 Encounter Details Date Type Department Care Team (Late st Contact Info) Description 02/20/2021 Telephone [place] [phone] Juan Manuel Sapp RN New Medication Request [...] 1:12 PM EDT Call received from Care [facility] asking for increased dose of Celebrex. States [...] on filedocumented in this encounter Care Teams Assembler Product Relationship Specialty Start Date End Date Aneta Perez PA [address] [place] [address] PCP - General Family Medicine 10/17/19 documented as of this encounter
--- OUTSIDE RECORDS SUMMARY | 2023-12-14 02:28 | XMS_ITS | Encounter Summary ---
Author Organization [facility] [place] [address] Care Team Providers Care Fire Technology Instructor Name Role Phone Aneta Perez Primary Care Provider [phone] Reason for Visit * Auth/Cert (Routine) Specialty [...] EACH MUSCLE (WRVU 5.5) Ulises Parry MD [facility] [place] [address] [facility] Referral ID Status Reason Start Date Expiration Date Visits Re quested Visits Authorized [id number] 1 1 Encounter Details Date Type Department Care Team (Late st Contact Info) Description 07/22/2022 9:55 AM EST - 07/22/2022 11:15 AM EST Surgery [place] [address] Ulises Paryr MD [facility] [place] [address] TRANSFER OR TRANSPLANT TENDON, PALMAR, W/O FREE [...] closest emergency room or call the hospital dough cutting machine operator at [phone] and ask for physician credit control manager covering for your physician. Questions or problems after 5pm or on a weekend: Call the [facility] dough cutting machine operator at and ask for the physician credit control manager covering for your doctor. At 10:00 am [...] about scheduling, please contact our administrative officesat [phone] For clinical questions, please call our nurses at [phone] Both offices are open Thursday thru Thursday 8a - 5p. With emergencies after hours, call the hospital dough cutting machine operator at [phone] and ask for the Plastic Surgery Resident credit control manager. DISCHARGE INSTRUCTIONS CONTACT INFORMATION: During office hours (Thursday through Thursday 8 am to 5 pm): Call [phone]. On weekends or after hours: Call [phone] and ask the dough cutting machine operator to speak to the Plastic Surgery Resident on-call. FOLLOW-UP APPOINTMENTS: You follow-up appointment has been scheduled. Please call [phone] if you have not received a phone call or letter with your appointment in a timely fashion. Your follow-up has been scheduled: Future Appointments Date Time Provider Department Center 07/30/2022 2:30 PM Ulises Parry MD [facility] [address] 07/30/2022 2:30 PM Shyanne Brar OT [facility] 11/25/2022 10:30 AM Zak Lee MD [facility] documented in this encounter Medications at [...] 8.6) performed by Monique Parry MD at [facility] ? ? PRO ADJ TISS XFER HEAD, FAC, HAND <10SQCM Left 10/01/2020 ADJ.TISSUE TRANSFER, REARRANGEMENT, 10SQ.CM OR LESS, HANDS (WRVU 8.6) performed by Monique Parry MD at [facility] ??? PRO HAND TENDON KETTY RECONST, GRAFT Left 10/01/2020 RECONSTRUCT TENDON KETTY, EA TENDON, W/ TENDON OR FASCIAL GRAFT (WRVU 7.31) performed by Ulises Parry MD at [facility] ? ? PRO TENOLYSIS FLEX TENDON, PALM & FINGER, EA Left 12/05/2019 TENOLYSIS, FLEXOR TENDON, PALM AND FINGER EACH (WRVU 9.75) performed by Ulises Parry MD at [facility] ??? PRO TENOLYSIS, FLEX TENDON, PALM/FINGER, EA Left 03/26/2020 TENOLYSIS, FLEXOR TENDON, PALM OR FINGER, EACH (WRVU 5.16) performed by Ulises Parry MD at [facility] ??? PRO TRANSPLANT FOREARM/WRIST TENDON Left 03/26/2020 TENDON TRANSPLANT OR TRANSFER, FOREARM &,OR WRIST, SINGLE; EA (WRVU 8.08) performed by Ulises Parry MD at [facility] History reviewed. No pertinent family [...] Operative Note Patient Name: Liset Hager : [id number] MR#: [id number] Case Date: 07/22/2022 Surgeon: Surgeon(s) and Role: [...] Center 07/30/2022 2:30 PM Ulises Parry MD [facility] 07/30/2022 2:30 PM Shyanne Brar OT [facility] 11/25/2022 10:30 AM Zak Lee MD [facility] RHEUM [facility] * Op Note - Ulises Parry MD - 07/22/2022 10:57 AM EST [facility] Operative Note Patient Name: Liset Hager : [id number] MR#: [id number] Case Date: 07/22/2022 Surgeon: Surgeon(s) and Role: [...] Associated Diagnosis Comments Release Muscles Of Hand ([id number]) 07/22/2022 10:39 AM EST Surgery follow-up Transplant Palm Tendon ([id number]) 07/22/2022 10:39 AM EST Surgery follow-up POCT [...] POC Glucose 83 65 - 199 mg/dL [facility] Comment: Supplemental ranges: <140 mg/dL before meals <180 mg/dL all other times of the day Blood 07/22/2022 9:34 AM EST 07/22/2022 9:34 AM EST Ulises Parry MD POINT OF CARE TEST ORDERABLES [facility] [place] [address] documented in this encounter Visit Diagnoses Diagnosis [...] Routine documented in this encounter Care Teams Fire Technology Instructor Relationship Specialty Start Date End Date Aneta Perez PA [address] [place] [address] PCP - General Family Medicine 10/17/19 documented as of this encounter
--- OUTSIDE RECORDS SUMMARY | 2023-12-14 02:28 | XMS_ITS | Encounter Summary ---
Author Organization [facility] [place] [address] Care Team Providers Care Apprentice Embalmer Name Role Phone Aneta Perez Primary Care Provider [phone] Encounter Details Date Type Department Care Team [...] on filedocumented in this encounter Care Teams Apprentice Embalmer Relationship Specialty Start Date End Date Aneta Perez PA [address] [place] [address] PCP - General Family Medicine 10/17/19 documented as of this encounter
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
--- OUTSIDE RECORDS SUMMARY | 2023-12-14 02:28 | XMS_ITS | Encounter Summary ---
Author Organization [facility] [address] Care Team Providers Care Platemaker Name Role Phone Aneta Perez Primary Care Provider [phone] Reason for Visit * Reason Onset Date Comments Letter Request From Patient 07/09/2021 Encounter Details Date Type Department Care Team (Late st Contact Info) Description 07/09/2021 [place] [phone] Juan Manuel Sapp, RN Letter Request From [...] leave a message. I sent Liset a [facility] message. Received a call, from [employer] Product Analyst asking for a reconsideration of the letter [...] I spoke with Liset Mcmillan after the [employer] Product Analyst called and advised she neglected to tell me thisis what the letter was for. Liset Mcmillan said forget it and hung up on me. documented in this encounter Plan of Treatment Not on file documented as of this encounter Visit Diagnoses Not on filedocumented in this encounter Care Teams Platemaker Relationship Specialty Start Date End Date Aneta Perez PA [address] [place] [address] PCP - General Family Medicine 10/17/19 documented as of this encounter
--- OUTSIDE RECORDS SUMMARY | 2023-12-14 02:28 | XMS_ITS | Encounter Summary ---
Author Organization [facility] [place] [address] Care Team Providers Care Speed Reading Teacher Name Role Phone Aneta Perez Primary Care Provider [phone] Reason for Visit * Auth/Cert Specialty Diagnoses / Procedures Referred By Roberto t Referred To Contact Diagnoses finger issue Procedures PRO HAND TENDON KETTY RECONST, GRAFT RECONSTRUCT TENDON KETTY, EA TENDON, W/ TENDON OR FASCIAL GRAFT (WRVU 7.31) Referral ID Status Reason Start Date Expiration Date Visits Re quested Visits Authorized [id number] 1 1 Encounter Details Date Type Department Care Team (Latest Contact Info) Description 10/01/2020 7:17 AM EDT - 10/01/2020 12:10 PM EDT Hospital Encounter [place] [address] Ulises Parry MD [facility] [place] [address] Surgery follow-up; Surgery follow-up Discharge Disposition: Home [...] closest emergency room or call the hospital pneumatic tool operator at [phone] and ask for physician adhesion tester covering for your physician. Questions or problems after 5pm or on a weekend: Call the [facility] pneumatic tool operator at and ask for the physician adhesion tester covering for your doctor. At 0800 am [...] also take motrin/ibuprofen/aleve for pain. You may aaof711 mg of motrin every 6-8 hours for pain. If your pain is still not controlled, you may take the narcotic pain medication prescribed for you. Do not drive or operate machinery while taking narcotic pain medications. If taking narcotics, we recommend taking an [id number] stool softener to prevent constipation. Call our [...] about scheduling, please contact our administrative officesat [phone] For clinical questions, please call our nurses at [phone] Both offices are open Thursday thru Thursday 8a - 5p. With emergencies after hours, call the hospital pneumatic tool operator at [phone] and ask for the Plastic Surgery Resident adhesion tester. Our office will contact you to schedule [...] patient was questioned regarding travel outside of [place], fever, cough, SOB or other illness [...] again, temperature will be taken, patient and caregiver/septic pump truck driver will be given a mask to wear the entire time they are in the [facility] building. * Yudelka Toro RN - 09/24/2020 3:57 PM EDT During this call the patient was questioned regarding travel outside of [place], fever, cough, SOB or other illness [...] again, temperature will be taken, patient and caregiver/septic pump truck driver will be given a mask [...] 8.6) performed by Monique Parry MD at [facility] ? ? PRO TENOLYSIS FLEX TENDON, PALM & FINGER, EA Left 12/05/2019 TENOLYSIS, FLEXOR TENDON, PALM AND FINGER EACH (WRVU 9.75) performed by Ulises Parry MD at [facility] ??? PRO TENOLYSIS, FLEX TENDON, PALM/FINGER, EA Left 03/26/2020 TENOLYSIS, FLEXOR TENDON, PALM OR FINGER, EACH (WRVU 5.16) performed by Ulises Parry MD at [facility] ??? PRO TRANSPLANT FOREARM/WRIST TENDON Left 03/26/2020 TENDON TRANSPLANT OR TRANSFER, FOREARM &,OR WRIST, SINGLE; EA (WRVU 8.08) performed by Ulises Parry MD at [facility] History reviewed. No pertinent [...] Gatherings with Friends and Family: ??? Attends [employer] Services: ??? Active Member of Clubs or [...] Molly Ramos MD Plastic Surgery Resident P# [id number] documented in this encounter Miscellaneous Notes * Brief Op Note - Molly Ramos MD - 10/01/2020 10:19 AM EDT Brief Operative Note Patient Name: Liset Hager : [id number] MR#: [id number] Case Date: 10/01/2020 Surgeon: Surgeon(s) and Role: [...] Parry MD - 10/01/2020 9:07 AM EDT [facility] [place] Note Patient Name: Liset Hager : [id number] MR#: [id number] Case Date: 10/01/2020 Surgeon: Surgeon(s) and Role: [...] Adj Tiss Transfer Head, Fac, Hand <10Sqcm ([id number]) 10/01/2020 8:44 AM EDT Surgery follow-up Hand Tendon Ketty Reconst, Graft ([id number]) 10/01/2020 8:44 AM EDT Surgery follow-up RECONSTRUCT [...] site) documented in this encounter Care Teams Speed Reading Teacher Relationship Specialty Start Date End Date Aneta Perez PA [address] [place] [address] PCP - General Family Medicine 10/17/19 documented as of this encounter
--- OUTSIDE RECORDS SUMMARY | 2023-12-14 02:28 | XMS_ITS | Encounter Summary ---
Author Organization [facility] [place] [address] Care Team Providers Care Hot Wort Settler Name Role Phone Aneta Perez Primary Care Provider [phone] Encounter Details Date Type Department Care Team (Late st Contact Info) Description 01/14/2023 [place] [phone] Juan Manuel Sapp RN Social History Tobacco [...] This patient did not show for appointment [facility] or at [facility] in [facility]. I am notifying you. I wrote a note in [facility]. NOTE ABOVE BY ZACARIAS ARBOLEDA RN documented in this encounter Plan of Treatment Not on file documented as of this encounter Visit Diagnoses Not on filedocumented in this encounter Care Teams Hot Wort Settler Relationship Specialty Start Date End Date Aneta Perez PA [address] [place] [address] [id number] PCP - General Family Medicine 10/17/19 documented as of this encounter
--- OUTSIDE RECORDS SUMMARY | 2023-12-14 02:28 | XMS_ITS | Encounter Summary ---
[place] [address] Care Team Providers Care Nailer Machine Name Role Phone Aneta Perez Primary Care Provider [phone] Encounter Details Date Type Department Care Team (Late st Contact Info) Description 11/25/2022 Telephone [place] [phone] Krissy De Leon RN Social History Tobacco [...] 12/04/2022 11:16 AM EDT Reaching out to [facility] for last infusion note. Will send to [facility] at [phone] once I get it to get it scheduled at [facility] for pt. * Telephone Encounter - Krissy De Leon RN - 11/25/2022 4:20 PM EDT Call from [facility] Infusion asking for the dates of the last Infusion of Rituxam/Ruxience and if a PA is required? Has infusions every 4 months? Perla asking for call back with the information at [phone]. Message sent to Tamara Domingo, Airplane Pilot Supervisor who handles infusions. documented in this encounter Plan of Treatment Not on file documented as of this encounter Visit Diagnoses Not on filedocumented in this encounter Care Teams Nailer Machine Relationship Specialty Start Date End Date Aneta Perez PA [address] [place] [address] PCP - General Family Medicine 10/17/19 documented as of this encounter
--- OUTSIDE RECORDS SUMMARY | 2023-12-14 02:28 | XMS_ITS | Encounter Summary ---
[place] [address] Care Team Providers Care Director Of Student Financial Aid Name Role Phone Aneta Perez Primary Care Provider Encounter Details Date Type Department Care Team (Late st Contact Info) Description 05/27/2022 [place] [phone] Bethany Watts Social History Tobacco Use Types [...] on filedocumented in this encounter Care Teams Director Of Student Financial Aid Relationship Specialty Start Date End Date Aneta Perez PA [address] [place] [address] PCP - General Family Medicine 10/17/19 documented as of this encounter
--- OUTSIDE RECORDS SUMMARY | 2023-12-14 02:28 | XMS_ITS | Encounter Summary ---
Author Organization [facility] [place] [address] Care Team Providers Care Cable Maker Name Role Phone Aneta Perez Primary Care Provider [phone] Reason for Visit * Reason Onset Date Comments Medication Refill 07/17/2022 Encounter Details Date Type Department Care Team (Late st Contact Info) Description 07/17/2022 [place] [address] Zak Lee MD [facility] [place] [address] High risk medication use; Infusion reaction, subsequent [...] vomiting documented in this encounter Care Teams Cable Maker Relationship Specialty Start Date End Date Aneta Perez PA [address] [place] [address] PCP - General Family Medicine 10/17/19 documented as of this encounter
--- OUTSIDE RECORDS SUMMARY | 2023-12-14 02:28 | XMS_ITS | Encounter Summary ---
Author Organization [facility] [place] [address] Care Team Providers Care Creping Machine Operator Name Role Phone Aneta Perez Primary Care Provider [phone] Encounter Details Date Type Department Care Team (Late st Contact Info) Description 02/11/2021 [place] [address] Zak Lee MD [facility] [place] [address] Rheumatoid arthritis involving multiple sites with positive [...] factor documented in this encounter Care Teams Creping Machine Operator Relationship Specialty Start Date End Date Aneta Peerz PA [address] [place] [address] PCP - General Family Medicine 10/17/19 documented as of this encounter
--- OUTSIDE RECORDS SUMMARY | 2023-12-14 02:28 | XMS_ITS | Encounter Summary ---
[place] [address] Care Team Providers Care Licensing Officer Name Role Phone Aneta Perez Primary Care Provider [phone] Encounter Details Date Type Department Care Team (Late st Contact Info) Description 09/26/2022 Telephone [place] [phone] Krissy De Leon RN Social History Tobacco [...] were not included. Zak Lee [place] [facility] [place] Nurse ?? 9:53 [...] the results from labs and X-rays from [place]. Patient would like to know if any changes needed based on results. Message sent to Dr Lee to review. * Telephone Encounter - Krissy De Leon RN - 09/26/2022 4:51 PM EDT TC from patient asking for the results of the labs/xrays done [place]. Message sent to Dr Lee/area secretary for results. documented in this encounter Plan of Treatment Not on file documented as of this encounter Visit Diagnoses Not on filedocumented in this encounter Care Teams Licensing Officer Relationship Specialty Start Date End Date Aneta Perez PA [address] [place] [address] PCP - General Family Medicine 10/17/19 documented as of this encounter
--- OUTSIDE RECORDS SUMMARY | 2023-12-14 02:28 | XMS_ITS | Encounter Summary ---
Author Organization [facility] [place] [address] Care Team Providers Care Scratch Polisher Name Role Phone Aneta Perez Primary Care Provider [phone] Encounter Details Date Type Department Care Team (Late st Contact Info) Description 09/05/2022 Tele[place] [phone] Krissy De Leon RN Social History Tobacco [...] her for a rituximab infusion up in [facility]. Would you please contact their infusion suite [...] on filedocumented in this encounter Care Teams Scratch Polisher Relationship Specialty Start Date End Date Aneta Perez PA [address] [place] [address] PCP - General Family Medicine 10/17/19 documented as of this encounter
--- OUTSIDE RECORDS SUMMARY | 2023-12-14 02:28 | XMS_ITS | Encounter Summary ---
[place] [address] Care Team Providers Care Computational Mathematician Name Role Phone Aneta Perez Primary Care Provider [phone] Reason for Visit * Auth/Cert Specialty Diagnoses / Procedures Referred By Roberto palomares Referred To Contact Diagnoses finger issue Procedures PRO HAND TENDON KETTY RECONST, GRAFT RECONSTRUCT TENDON KETTY, EA TENDON, W/ TENDON OR FASCIAL GRAFT (WRVU 7.31) Referral ID Status Reason Start Date Expiration Date Visits Re quested Visits Authorized [id number] 1 1 Encounter Details Date Type Department Care Team (Late st Contact Info) Description 10/01/2020 8:45 AM EDT Anesthesia Event Outpatient [place] [address] Rianna Ramírez DO [facility] [place] [address] Mariano Soares MD [facility] [place] [address] Anesthesia Record Procedure Summary Procedure Name Responsible [...] cephalic vein (lateral side of arm), right; brka-kwq-zphafh catheter system; Anatomical Landmarks; 22 gauge, 3/4 in length; Sheila Ramírez MD; intradermal injection, distraction, tolerated well; 10/01/20; 1210 10/01/20 0808 by Kim Rascon RN 10/01/20 1210 by Kim Rascon RN Supraglottic Mask Ventilation: Ea sy (1); LMA Type: iGel; LMA Size: 3; Inserted by: CAMILA Esquivel; Removal Date: 10/01/20; Removal Time: 1021 10/01/20 0849 by Nelsy Sanches WAFER FAB TECHNICIAN 10/01/20 1021 by Nelsy Sanches CRNA Incision [...] Procedure Summary Date: 10/01/20 Room / Location: [address] [facility] Anesthesia Start: 844 Anesthesia Stop: 1028 Procedures: RECONSTRUCT TENDON KETTY, EA TENDON, W/ TENDON OR FASCIAL GRAFT (WRVU 7.31) (Left Hand) ADJ.TISSUE TRANSFER, REARRANGEMENT, 10SQ.CM OR LESS, HANDS (WRVU 8.6) (Left Hand) Diagnosis: Surgery follow-up (finger issue) Surgeons: Ulises Parry MD Responsible Provider: Rianna Ramírez DO Anesthesia Type: general ASA Status: 2 All Anesthesia Providers: Anesthesiologist: Rianna Ramírez DO WAFER FAB TECHNICIAN: Nelsy Sanches CRNA Vitals Value Taken Time BP 144/79 10/01/20 1145 Temp Pulse 87 10/01/20 1156 Resp 20 10/01/20 1030 SpO2 95 % 10/01/20 1156 Pain Level 0 10/01/20 1200 Vitals shown include unvalidated device data. Patient Location: PACU/[facility] Level of Consciousness: Awake and Alert Pain [...] Preprocedure Evaluation - Rianna Ramírez DO - 10/01/2020 7:17 AM EDT Pre-Anesthesia Evaluation for: Liset Hager a 40 y.o. female. Procedure(s): RECONSTRUCT TENDON KETTY, EA TENDON, W/ TENDON OR FASCIAL GRAFT (WRVU 7.31) Patient Active Problem List Diagnosis ??? Surgery follow-up Added automatically from request for surgery [id number] ??? Other specified diabetes mellitus with other specified complication ??? Chronic pain of both knees ??? Tendon rupture of wrist Added automatically from request for surgery [id number] ??? Tendon dysfunction ??? Rheumatoid arthritis involving [...] 8.6) performed by Monique Parry MD at [facility] ? ? PRO TENOLYSIS FLEX TENDON, PALM & FINGER, EA Left 12/05/2019 TENOLYSIS, FLEXOR TENDON, PALM AND FINGER EACH (WRVU 9.75) performed by Ulises Parry MD at [facility] ??? PRO TENOLYSIS, FLEX TENDON, PALM/FINGER, EA Left 03/26/2020 TENOLYSIS, FLEXOR TENDON, PALM OR FINGER, EACH (WRVU 5.16) performed by Ulises Parry MD at [facility] ??? PRO TRANSPLANT FOREARM/WRIST TENDON Left 03/26/2020 TENDON TRANSPLANT OR TRANSFER, FOREARM &,OR WRIST, SINGLE; EA (WRVU 8.08) performed by Ulises Parry MD at [facility] Social History Tobacco Use ??? [...] risks discussed with patient. Plan discussed with WAFER FAB TECHNICIAN. PAT Clinic Note documented in this encounter [...] mL/hr documented in this encounter Care Teams Computational Mathematician Relationship Specialty Start Date End Date Aneta Perez PA [address] [place] [address] PCP - General Family Medicine 10/17/19 documented as of this encounter
--- OUTSIDE RECORDS SUMMARY | 2023-12-14 02:28 | XMS_ITS | Encounter Summary ---
Author Organization [facility] [place] [address] Care Team Providers Care Dip Stand Loader Name Role Phone Aneta Perez Primary Care Provider [phone] Encounter Details Date Type Department Care Team (Late st Contact Info) Description 09/30/2022 Telephone [place] [phone] Krissy De Leon RN Social History Tobacco [...] and status of infusions from Facility up [facility]. Asked the patient to return my call. documented in this encounter Plan of Treatment Not on file documented as of this encounter Visit Diagnoses Not on filedocumented in this encounter Care Teams Dip Stand Loader Relationship Specialty Start Date End Date Aneta Perez PA [address] [place] [address] PCP - General Family Medicine 10/17/19 documented as of this encounter
--- OUTSIDE RECORDS SUMMARY | 2023-12-14 02:28 | XMS_ITS | Encounter Summary ---
Author Organization [facility] [place] [address] Care Team Providers Care Electrical Mechanical Technician Name Role Phone Aneta Perez Primary Care Provider [phone] Encounter Details Date Type Department Care Team (Late st Contact Info) Description 10/17/2020 Orders [place] [address] Zak Lee MD [facility] [place] [address] Social History Tobacco Use Types Packs/Day Years [...] on filedocumented in this encounter Care Teams Electrical Mechanical Technician Relationship Specialty Start Date End Date Aneta Perez PA [address] [place] [address] PCP - General Family Medicine 10/17/19 documented as of this encounter
--- OUTSIDE RECORDS SUMMARY | 2023-12-14 02:28 | XMS_ITS | Encounter Summary ---
Author [facility] [place] [address] Care Team Providers Care Bellows Assembler Name Role Phone Aneta Perez Primary Care Provider Encounter Details Date Type Department Care Team (Late st Contact Info) Description 02/11/2021 Tele[place] [phone] Juan Manuel Sapp RN Social History Tobacco [...] 02/11/2021 10:51 AM EDT Call received from [facility] Step down Unit asking if [facility] can start Celebrex. RTC and spoke with [...] need to be faxed to facility @ [phone]. Rx Faxed REQUESTED. documented in this encounter Plan of Treatment Not on file documented as of this encounter Visit Diagnoses Not on filedocumented in this encounter Care Teams Bellows Assembler Relationship Specialty Start Date End Date Aneta Perez PA [address] [place] [address] PCP - General Family Medicine 10/17/19 documented as of this encounter
--- OUTSIDE RECORDS SUMMARY | 2023-12-14 02:28 | XMS_ITS | Encounter Summary ---
[place] [address] Care Team Providers Care Linoleum Installer Name Role Phone Aneta Perez Primary Care Provider Encounter Details Date Type Department Care Team (Late st Contact Info) Description 05/23/2022 5:05 PM EST Ancillary Procedure [place] [address] Aneta Perez PA [address] [place] [address] Social History Tobacco Use Types Packs/Day Years [...] purpose is for storage only. Aneta [facility] FILM LIBRARY ORD ERABLES DH [place], [place] documented in this encounter Visit Diagnoses Not on filedocumented in this encounter Care Teams Linoleum Installer Relationship Specialty Start Date End Date Aneta Perez PA [address] [place] [address] PCP - General Family Medicine 10/17/19 documented as of this encounter
--- OUTSIDE RECORDS SUMMARY | 2023-12-14 02:28 | XMS_ITS | Encounter Summary ---
Author Organization [facility] [place] [address] Care Team Providers Care Flight Test Mechanic Name Role Phone Aneta Perez Primary Care Provider [phone] Reason for Visit * Auth/Cert (Routine) Specialty [...] EACH MUSCLE (WRVU 5.5) Ulises Parry MD [facility] [place] [address] [facility] Referral ID Status Reason Start Date Expiration Date Visits Re quested Visits Authorized [id number] 1 1 Encounter Details Date Type Department Care Team (Late st Contact Info) Description 07/22/2022 10:40 AM EST Anesthesia Event [place] [address] Haley Taylor MD [facility] [place] [address] Nelsy Sanches CRNA [facility] [place] [address] Anesthesia Record Procedure Summary Procedure Name Responsible [...] 1000; metacarpal vein (top of hand), right; ltxo-ayu-bsawdh catheter system; 22 gauge; Ashkan Caballero RN; [...] Procedure Summary Date: 07/22/22 Room / Location: [address] Anesthesia Start: 1040 Anesthesia Stop: 1221 Procedures: TRANSFER OR TRANSPLANT TENDON, PALMAR, W/O FREE TENDON GRAFT, EACH (WRVU 7.89) (Left: Hand) RELEASE, INTRINSIC MUSCLES OF HAND, EACH MUSCLE (WRVU 5.5) (Left: Hand) Diagnosis: Surgery follow-up (tendon/flexor rupture) Surgeons: Ulises Parry MD Responsible Provider: Haley Taylor MD Anesthesia Type: MAC ASA Status: 2 All Anesthesia Providers: Anesthesiologist: Haley Taylor MD HEALTH PROGRAM DIRECTOR: Nelsy Sanches CRNA Vitals Value Taken Time BP 109/63 07/22/22 1300 Temp 36.5 ??C (97.7 ??F) 07/22/22 1224 Pulse 90 07/22/22 1305 Resp 16 07/22/22 1300 SpO2 95 % 07/22/22 1305 Pain Level 0 07/22/22 1300 Vitals shown include unvalidated device data. Patient Location: PACU/[facility] Level of Consciousness: Awake and Alert [...] 8.6) performed by Monique Parry MD at [facility] ? ? PRO ADJ TISS XFER HEAD, FAC, HAND <10SQCM Left 10/01/2020 ADJ.TISSUE TRANSFER, REARRANGEMENT, 10SQ.CM OR LESS, HANDS (WRVU 8.6) performed by Monique Parry MD at [facility] ??? PRO HAND TENDON KETTY RECONST, GRAFT Left 10/01/2020 RECONSTRUCT TENDON KETTY, EA TENDON, W/ TENDON OR FASCIAL GRAFT (WRVU 7.31) performed by Ulises Parry MD at [facility] ? ? PRO TENOLYSIS FLEX TENDON, PALM & FINGER, EA Left 12/05/2019 TENOLYSIS, FLEXOR TENDON, PALM AND FINGER EACH (WRVU 9.75) performed by Ulises Parry MD at [facility] ??? PRO TENOLYSIS, FLEX TENDON, PALM/FINGER, EA Left 03/26/2020 TENOLYSIS, FLEXOR TENDON, PALM OR FINGER, EACH (WRVU 5.16) performed by Ulises Parry MD at [facility] ??? PRO TRANSPLANT FOREARM/WRIST TENDON Left 03/26/2020 TENDON TRANSPLANT OR TRANSFER, FOREARM &,OR WRIST, SINGLE; EA (WRVU 8.08) performed by Ulises Parry MD at [facility] Social History Tobacco Use ??? [...] risks discussed with patient. Plan discussed with HEALTH PROGRAM DIRECTOR. Anesthesia Screening documented in this encounter Plan [...] mg documented in this encounter Care Teams Flight Test Mechanic Relationship Specialty Start Date End Date Aneta Perez PA [address] [place] [address] PCP - General Family Medicine 10/17/19 documented as of this encounter
--- OUTSIDE RECORDS SUMMARY | 2023-12-14 02:28 | XMS_ITS | Encounter Summary ---
Author Organization [facility] Address [facility] [place] [address] Care Team Providers Care Leaf Stripper Name Role Phone Aneta Perez Primary Care Provider [phone] Reason for Visit * Reason Comments Follow Up Surgery left hand Encounter Details Date Type Department Care Team (Late st Contact Info) Description 10/31/2020 8:00 AM EDT Office Visit Plastic Surgery at [facility] [address] [place] [address] Ulises Parry MD [facility] PLASTIC [place] [address] Postop check Social History Tobacco Use Types [...] surgery documented in this encounter Care Teams Leaf Stripper Relationship Specialty Start Date End Date Aneta Perez PA [address] [place] [address] PCP - General Family Medicine 10/17/19 documented as of this encounter
--- OUTSIDE RECORDS SUMMARY | 2023-12-14 02:28 | XMS_ITS | Encounter Summary ---
Author Organization [facility] Address [facility] [address] Care Team Providers Care Bag Machine Set Up Operator Name Role Phone Aneta Perez Primary Care Provider [phone] Reason for Visit * Auth/Cert (Routine) Specialty [...] EACH MUSCLE (WRVU 5.5) Ulises Parry MD [facility] [place] [address] [facility] Referral ID Status Reason Start Date Expiration Date Visits Re quested Visits Authorized [id number] 1 1 Encounter Details Date Type Department Care Team (Latest Contact Info) Description 07/22/2022 8:45 AM EST - 07/22/2022 1:20 PM EST Hospital Encounter Outpatient Surgery [place] [address] Ulises Parry MD [facility] [place] [address] Surgery follow-up Discharge Disposition: Home Social History [...] closest emergency room or call the hospital excavating machine operator at [phone] and ask for physician ecological economist covering for your physician. Questions or problems after 5pm or on a weekend: Call the [facility] excavating machine operator at and ask for the physician ecological economist covering for your doctor. At 10:00 am [...] about scheduling, please contact our administrative officesat [phone] For clinical questions, please call our nurses at [phone] Both offices are open Thursday thru Thursday 8a - 5p. With emergencies after hours, call the hospital excavating machine operator at [phone] and ask for the Plastic Surgery Resident ecological economist. DISCHARGE INSTRUCTIONS CONTACT INFORMATION: During office hours (Thursday through Thursday 8 am to 5 pm): Call [phone]. On weekends or after hours: Call [phone] and ask the excavating machine operator to speak to the Plastic Surgery Resident on-call. FOLLOW-UP APPOINTMENTS: You follow-up appointment has been scheduled. Please call [phone] if you have not received a phone call or letter with your appointment in a timely fashion. Your follow-up has been scheduled: Future Appointments Date Time Provider Department Center 07/30/2022 2:30 PM Ulises Parry MD [facility] [address] 07/30/2022 2:30 PM Shyanne Brar, [facility] OT [facility] 11/25/2022 10:30 AM Zak Lee MD [facility] documented in this encounter Medications at Time [...] 8.6) performed by Monique Parry MD at [facility] ? ? PRO ADJ TISS XFER HEAD, FAC, HAND <10SQCM Left 10/01/2020 ADJ.TISSUE TRANSFER, REARRANGEMENT, 10SQ.CM OR LESS, HANDS (WRVU 8.6) performed by Monique Parry MD at [facility] ??? PRO HAND TENDON KETTY RECONST, GRAFT Left 10/01/2020 RECONSTRUCT TENDON KETTY, EA TENDON, W/ TENDON OR FASCIAL GRAFT (WRVU 7.31) performed by Ulises Parry MD at [facility] ? ? PRO TENOLYSIS FLEX TENDON, PALM & FINGER, EA Left 12/05/2019 TENOLYSIS, FLEXOR TENDON, PALM AND FINGER EACH (WRVU 9.75) performed by Ulises Parry MD at [facility] ??? PRO TENOLYSIS, FLEX TENDON, PALM/FINGER, EA Left 03/26/2020 TENOLYSIS, FLEXOR TENDON, PALM OR FINGER, EACH (WRVU 5.16) performed by Ulises Parry MD at [facility] ??? PRO TRANSPLANT FOREARM/WRIST TENDON Left 03/26/2020 TENDON TRANSPLANT OR TRANSFER, FOREARM &,OR WRIST, SINGLE; EA (WRVU 8.08) performed by Ulises Parry MD at [facility] History reviewed. No pertinent family [...] Operative Note Patient Name: Liset Hager : [id number] MR#: [id number] Case Date: 07/22/2022 Surgeon: Surgeon(s) and Role: [...] 07/30/2022 2:30 PM Ulises Parry MD [facility] 07/30/2022 2:30 PM Shyanne Brar OT [facility] 11/25/2022 10:30 AM Zak Lee MD [facility] * Op Note - Ulises Parry MD - 07/22/2022 10:57 AM EST [facility] Operative Note Patient Name: Liset Hager : [id number] MR#: [id number] Case Date: 07/22/2022 Surgeon: Surgeon(s) and Role: [...] Associated Diagnosis Comments Release Muscles Of Hand ([id number]) 07/22/2022 10:39 AM EST Surgery follow-up Transplant Palm Tendon ([id number]) 07/22/2022 10:39 AM EST Surgery follow-up POCT [...] POC Glucose 83 65 - 199 mg/dL [facility] Comment: Supplemental ranges: <140 mg/dL before meals <180 mg/dL all other times of the day Blood 07/22/2022 9:34 AM EST 07/22/2022 9:34 AM EST Ulises Parry MD POINT OF CARE TEST ORDERABLES [facility] [place] [address] documented in this encounter Visit Diagnoses Diagnosis [...] Routine documented in this encounter Care Teams Bag Machine Set Up Operator Relationship Specialty Start Date End Date Aneta Perez PA [address] [place] [address] PCP - General Family Medicine 10/17/19 documented as of this encounter
--- OUTSIDE RECORDS SUMMARY | 2023-12-14 02:28 | XMS_ITS | Encounter Summary ---
[place] [address] Care Team Providers Care Septic Technician Name Role Phone Aneta Perez Primary Care Provider Reason for Visit * Reason Onset Date Comments Medication Problem 01/09/2023 Encounter Details Date Type Department Care Team (Late st Contact Info) Description 01/09/2023 Telephone [place] [address] Juan Manuel Sapp cloth carrier Problem Social History Tobacco Use Types Packs/Day [...] AM EDT Call received from [place] @ [facility] stating she is having problems getting any information on infusions for patient after leaving several messages for Rheumatology staff. Lubna states that she was never advised this patient was changed to [facility] for Rituxan infusions, states she place 5 calls and no one ever called her back. documented in this encounter Plan of Treatment Not on file documented as of this encounter Visit Diagnoses Not on filedocumented in this encounter Care Teams Septic Technician Relationship Specialty Start Date End Date Aneta Perez PA [address] [place] [address] PCP - General Family Medicine 10/17/19 documented as of this encounter
--- OUTSIDE RECORDS SUMMARY | 2023-12-14 02:28 | XMS_ITS | Encounter Summary ---
Author Organization [facility] [place] [address] Care Team Providers Care Yield Clerk Name Role Phone Aneta Perez Primary Care Provider [phone] Encounter Details Date Type Department Care Team (Late st Contact Info) Description 02/22/2021 Orders Only [place] [address] Zak Lee MD [facility] [place] [address] Rheumatoid arthritis involving multiple sites with positive [...] factor documented in this encounter Care Teams Yield Clerk Relationship Specialty Start Date End Date Aneta Perez PA [address] [place] [address] PCP - General Family Medicine 10/17/19 documented as of this encounter
--- OUTSIDE RECORDS SUMMARY | 2023-12-14 02:28 | XMS_ITS | Encounter Summary ---
Author Organization [facility] [place] [address] Care Team Providers Care Biomedical Engineering Director Name Role Phone Aneta Perez Primary Care Provider [phone] Encounter Details Date Type Department Care Team [...] on filedocumented in this encounter Care Teams Biomedical Engineering Director Relationship Specialty Start Date End Date Aneta Perez PA [address] [place] [address] PCP - General Family Medicine 10/17/19 documented as of this encounter
--- OUTSIDE RECORDS SUMMARY | 2023-12-14 02:28 | XMS_ITS | Encounter Summary ---
Author Organization [facility] [place] [address] Care Team Providers Care Toddler Caregiver Name Role Phone Aneta Perez Primary Care Provider [phone] Encounter Details Date Type Department Care Team (Late st Contact Info) Description 05/22/2021 Telephone [place] [address] Brandee Francis Social History Tobacco Use Types [...] Medicaid so no PA is needed! (From [facility]) * Telephone Encounter - Brandee Francis - 05/22/2021 11:20 AM EST Call from [facility] stating a new auth is required for patient's Rituxan order documented in this encounter Plan of Treatment Not on file documented as of this encounter Visit Diagnoses Not on filedocumented in this encounter Care Teams Toddler Caregiver Relationship Specialty Start Date End Date Aneta Perez PA [address] [place] [address] PCP - General Family Medicine 10/17/19 documented as of this encounter
--- OUTSIDE RECORDS SUMMARY | 2023-12-14 02:28 | XMS_ITS | Encounter Summary ---
Author Organization [facility] [place] [address] Care Team Providers Care Fur Sewer Name Role Phone Aneta Perez Primary Care Provider [phone] Encounter Details Date Type Department Care Team (Late st Contact Info) Description 10/08/2020 Telephone [place] [phone] Do Esposito Social History Tobacco Use Types [...] 10/08/2020 3:06 PM EDT Faxed referral to [facility] for patient to have OT closer to home. documented in this encounter Plan of Treatment Not on file documented as of this encounter Visit Diagnoses Not on filedocumented in this encounter Care Teams Fur Sewer Relationship Specialty Start Date End Date Aneta Perez PA [address] [place] [address] PCP - General Family Medicine 10/17/19 documented as of this encounter
--- OUTSIDE RECORDS SUMMARY | 2023-12-14 02:29 | XMS_ITS | Encounter Summary ---
Author Organization [facility] Address [facility] [place] [address] Care Team Providers Care Electronic Imaging System Operator Name Role Phone Aneta Perez Primary Care Provider [phone] Encounter Details Date Type Department Care Team (Late st Contact Info) Description 04/03/2020 11:30 AM EST TH Visit (TeleHealth) [place] [address] Zak Lee MD [facility] [address] [place] [address] High risk medication use; Rheumatoid arthritis involving multiple sites with positive rheumatoid factor; Graves disease; Tendon dysfunction; Other specified diabetes mellitus with other specified complication, unspecified whether user interface engineer insulin use Social History Tobacco Use Types Packs/Day Years Used Date Smoking Tobacco: Every Day Cigarettes Smokeless Tobacco: Never Sex and Gender Information Value Date Recorded Sex Assigned at Not on file Gender Identity Not on file Sexual Orientation Not on file documented as of this encounter Progress Notes * Zak Lee MD - 04/03/2020 11:30 AM EST Rheumatology Clinic: Dr. Lee 04/03/2020 [id number] This is a TeleHealth telephone visit for [...] her next round of infusions done in [place] or [facility]. A lot has happened since that last visit. She has been diagnosed with a gastric ulcer by endoscopy up at [facility]. She became very symptomatic. She was on naproxen 500 mg twice a day for her arthritis. She was put on omeprazole and sucralfate by the lockstitch sleeve setter. Her lockstitch sleeve setter has no plan to rescope her unless [...] prior procedures done close to home in [place]. She will be seeing Dr. Parry tomorrow. [...] to get these infusions up in either [facility] or [place]. We will try and arrange that for [...] Total visit time: 25 min. Visit level: 63926. documented in this encounter Plan of Treatment Not on file documented as of this encounter Results * (ABNORMAL) Hemoglobin A1c (04/11/2020 1:10 PM EST) Hemoglobin A1C 7.5(H) 4.3 - 5.6 % [facility] Comment: Reference Range: 4.3 - [...] Mellitus, Diabetes Care 2013; 36: Suppl. 1, S67-18 Est Avg Gluc 168 mg/dL [facility] Comment: eAG equivalents for [...] into estimated average glucose values. ??Diabetes Care 2008:31(8):3125-9258. Blood specimen (specimen) 04/11/2020 1:10 PM EST 04/11/2020 1:15 PM EST Narrative Resulting Agency Comment Spec In Lab Zak Lee MD CHEMISTRY ORDERAB LES Performing Organization Address [facility] Co de Phone Number [facility] [place] [address] * IgG (04/11/2020 1:10 PM EST) IgG 889 700 - 1,600 mg/dL [facility] Comment: Pediatric Reference Intervals obtained from the Caliper Reference Interval project. http://www.nPicker.ca/caliperproject/index.html Blood specimen (specimen) 04/11/2020 1:10 PM EST 04/11/2020 1:15 PM EST Narrative Resulting Agency Comment Spec In Lab Zak Lee MD IMMUNOLOGY ORDERA BLES Performing Organization Address [facility] Co de Phone Number [facility] [place] [address] * CRP, acute inflammation (04/11/2020 1:10 PM EST) CRP 3.0 <=4.9 mg/L [facility] Blood specimen (specimen) 04/11/2020 1:10 PM EST 04/11/2020 1:15 PM EST Narrative Resulting Agency Comment Spec In Lab Zak Lee MD CHEMISTRY ORDERAB LES Performing Organization Address [facility] Co de Phone Number [facility] [place] [address] * (ABNORMAL) Sedimentation rate (04/11/2020 1:10 PM EST) Sed Rate 55(H) 2 - 37 mm/hr [facility] Comment: Effective May 11, 2019 new capillary photometric technology has resulted in a change in reference ranges. It is recommended that each ESR result be reviewed with its own age appropriate reference range. Blood specimen (specimen) 04/11/2020 1:10 PM EST 04/11/2020 1:15 PM EST Narrative Resulting Agency Comment Spec In Lab Zak Lee MD HEMATOLOGY ORDERA BLES [facility] [place] [address] * (ABNORMAL) Comprehensive metabolic panel (non-fasting) (04/11/2020 1:10 PM EST) Glucose Lvl 312(H) 65 - 199 mg/dL [facility] Comment:Diabetes: >=200 mg/d L plus symptoms BUN 10 8 - 18 mg/dL [facility] Creatinine 0.81 0.70 - 1.20 mg/dL [facility] Sodium 136 135 - 145 mmol/L [facility] Potassium 3.9 3.5 - 5.0 mmol/L [facility] Comment: Please note: ??Patients with WBC >100,000 may have falsely elevated Potassium levels. ??For accurate Potassium quantification in these patients send serum separator tube (gold top) for subsequent determinations. ??Contact the Clinical Chemistry Laboratory if there are any questions. Chloride 99 98 - 107 mmol/L [facility] CO2 21(L) 22 - 31 mmol/L [facility] Anion Gap 16(H) 5 - 15 mmol/L [facility] Calcium 9.7 8.5 - 10.5 mg/dL [facility] Total Protein 8.1(H) 6.1 - 8.0 gm/dL [facility] Albumin 4.6 3.2 - 5.2 gm/dL [facility] AST 12 0 - 30 unit/L [facility] ALT 24 0 - 30 unit/L [facility] Alk Phos 148(H) 35 - 105 unit/L [facility] Total Bilirubin 0.2 0.2 - 1.3 mg/dL [facility] Estimated GFR 92 >=60 mL/min/1. 73 m?? [facility] Comment: The eGFR was calculated using the CKD-EPI equation. As with all creatinine based estimates of kidney function, eGFR values calculated with the CKD-EPI equation are not accurate in patients with acute kidney failure, extremes of body mass or the acutely ill. http://[employer]/Handsnkf eGFR 107 >=60 mL/min/1. 73 m?? [facility] Comment: The eGFR was calculated using the CKD-EPI equation. As with all creatinine based estimates of kidney function, eGFR values calculated with the CKD-EPI equation are not accurate in patients with acute kidney failure, extremes of body mass or the acutely ill. http://[employer]/DHMCnkf Blood specimen (specimen) 04/11/2020 1:10 PM EST 04/11/2020 1:15 PM EST Narrative Resulting Agency Comment Spec In Lab Zak Lee MD CHEMISTRY ORDERAB LES Performing Organization Address City/State/[facility] Co de Phone Number [facility] [place] [address] documented in this encounter Visit Diagnoses Diagnosis [...] use documented in this encounter Care Teams Electronic Imaging System Operator Relationship Specialty Start Date End Date Aneta Perez PA [address] [place] [address] PCP - General Family Medicine 10/17/19 documented as of this encounter
--- OUTSIDE RECORDS SUMMARY | 2023-12-14 02:29 | XMS_ITS | Encounter Summary ---
[place] [address] Care Team Providers Care Residence Director Name Role Phone Aneta Perez Primary Care Provider [phone] Encounter Details Date Type Department Care Team (Late st Contact Info) Description 03/28/2020 Telephone [place] [phone] Do Esposito Social History Tobacco Use Types [...] on filedocumented in this encounter Care Teams Residence Director Relationship Specialty Start Date End Date Aneta Perez PA [address] [place] [address] PCP - General Family Medicine 10/17/19 documented as of this encounter
--- OUTSIDE RECORDS SUMMARY | 2023-12-14 02:29 | XMS_ITS | Encounter Summary ---
Author Organization [facility] [place] [address] Care Team Providers Care Bin Tripper Operator Name Role Phone Yanique Mandujano APRN Primary Care Provider [phone] Reason for Visit * Reason Onset Date Comments Other 09/14/2019 Encounter Details Date Type Department Care Team (Late st Contact Info) Description 09/14/2019 [place] [phone] Momo Knight RN Other Social History Tobacco [...] on filedocumented in this encounter Care Teams Bin Tripper Operator Relationship Specialty Start Date End Date Yanique Mandujano APRN [address] [place] [phone] PCP - General 04/23/10 10/16/19 documented as of this encounter
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
--- OUTSIDE RECORDS SUMMARY | 2023-12-14 02:29 | XMS_ITS | Encounter Summary ---
Author Organization [facility] [place] [address] Care Team Providers Care Thermodynamics Engineer Name Role Phone Aneta Perez Primary Care Provider [phone] Reason for Referral * Consultation (Routine) - Closed Specialty Diagnoses / Procedures Referred By Roberto t Referred To Contact [facility] Diagnoses Trigger middle finger of left hand (concepcion) pending rheumatology appt Ulises Parry MD [facility] [place] [address] [facility] [place] [place] [address] Referral ID Status Reason Start Date Expiration Date V isits Requested Visits Authorized [id number] Closed Consult, Test & Treat 07/25/2020 07/25/2021 1 1 * Occupational Therapy (Routine) - Closed Specialty Diagnoses / Procedures Referred By Roberto palomares Referred To Contact Occupational Therapy Diagnoses Trigger middle finger of left hand Ulises Parry MD [facility] [place] [address] [facility] [address] [place] [address] Referral ID Status Reason Start Date Expiration Date V isits Requested Visits Authorized [id number] Closed Evaluate and Treat 07/25/2020 07/25/2021 30 30 Reason for Visit * Reason Comments Follow-up left hand contractur e Encounter Details Date Type Department Care Team (Late st Contact Info) Description 07/25/2020 8:30 AM EST Office Visit Plastic Surgery at [facility] [address] [place] [address] Ulises Parry MD [facility] [place] [address] Trigger middle finger of left hand Social [...] have a follow up appt with her Disease And Insect Control Boss, and I will make a referral to [...] (acquired) documented in this encounter Care Teams Thermodynamics Engineer Relationship Specialty Start Date End Date Aneta Perez PA [address] [place] [address] PCP - General Family Medicine 10/17/19 documented as of this encounter
--- OUTSIDE RECORDS SUMMARY | 2023-12-14 02:29 | XMS_ITS | Encounter Summary ---
Author Organization Count Includes [facility] Address [facility] [place] [address] Care Team Providers Care Cnc Mill And Lathe Operator Name Role Phone Aneta Perez Primary Care Provider [phone] Reason for Visit * Occupational Therapy (Routine) - Closed Specialty Diagnoses / Procedures Referred By Roberto palomares Referred To Contact Occupational Therapy Diagnoses Trigger middle finger of left hand Ulises Parry MD [facility] [place] [address] [facility] [address] [place] [address] Referral ID Status Reason Start Date Expiration Date V isits Requested Visits Authorized [id number] Closed Evaluate and Treat 07/25/2020 07/25/2021 30 30 Encounter Details Date Type Department Care Team (Late st Contact Info) Description 07/25/2020 8:30 AM EST Office Visit Occupational Therapy at [facility] [address] [place] [address] Tucker Wiggins OT [facility] PHYSICAL MEDICINE & [place] [address] Tendon dysfunction Social History Tobacco [...] With Activity: 0/10 Treatment Today: Orthosis - Ppxmd-Mwyy-Aebbfg Orthotic, Rigid, WO Jts, Custom Fit & Adj ([id number]) Educated patient in etiology and biomechanics as [...] bursa documented in this encounter Care Teams Cnc Mill And Lathe Operator Relationship Specialty Start Date End Date Aneta Perez PA [address] [place] [address] PCP - General Family Medicine 10/17/19 documented as of this encounter
--- OUTSIDE RECORDS SUMMARY | 2023-12-14 02:29 | XMS_ITS | Encounter Summary ---
Author Organization [facility] [place] [address] Care Team Providers Care Registered Dental Assistant Name Role Phone Aneta Perez Primary Care Provider [phone] Encounter Details Date Type Department Care Team (Late st Contact Info) Description 07/31/2020 Telephone [place] [phone] Zak Lee MD [facility] [place] [address] Social History Tobacco Use Types Packs/Day Years [...] with Sylwia Jackson MD, ER doctor at [facility], . Patient presented with a lot of [...] depression, and anxiety, and her history of [facility] admit for attempted suicide. Last round of R[facility] in [place] In April, so at least 4 months out. Currently, hands bothering, low back, right knee cap pops. ? How much is RA. After discussion, she agreed to a follow-up tomorrow at 11 am at [facility]. I sent in Rx for tramadol, #30, 1 refill to [place] in [place]. Further recommendations after visit tomorrow. Will probably [...] factor documented in this encounter Care Teams Registered Dental Assistant Relationship Specialty Start Date End Date Aneta Perez PA [address] [place] [address] PCP - General Family Medicine 10/17/19 documented as of this encounter
--- OUTSIDE RECORDS SUMMARY | 2023-12-14 02:29 | XMS_ITS | Encounter Summary ---
Author Organization [facility] Address [facility] [place] [address] Care Team Providers Care Manufacturing Project Manager Name Role Phone Aneta Perez Primary Care Provider [phone] Reason for Visit * Auth/Cert Specialty Diagnoses / Procedures Referred By Contdacia t Referred To Contact Diagnoses tendon rupture Procedures PRO TRANSPLANT/GRAFT PALM TENDON TRANSFER OR TRANSPLANT TENDON, PALMAR, W/ FREE TENDON GRAFT, EA (WRVU 9.86) Referral ID Status Reason Start Date Expiration Date Visits Re quested Visits Authorized [id number] 1 1 Encounter Details Date Type Department Care Team (Late st Contact Info) Description 12/05/2019 10:20 AM EDT - 12/05/2019 12:40 PM EDT Surgery [place] [address] Ulises Prary MD [facility] [place] [address] TENOLYSIS, FLEXOR TENDON, PALM AND FINGER EACH [...] office hours: Thursday - Thursday 8am-5pm call [phone]. On weekends or after hours call [phone] and ask the gun sealing machine operator to page the plastic surgery resident contact center consultant. PAIN MEDICATION: You were given a prescription [...] Thursday 8 am to 5 pm): Call [phone]. On weekends or after hours: Call [phone] and ask the gun sealing machine operator to speak to the Plastic Surgery Resident on-call. FOLLOW-UP APPOINTMENTS: You follow-up appointment has been scheduled. You should have an appointment in on 12/15/19 with in Plastic Surgery clinic for a postoperative follow- up. Please call [phone] if you have not received a phone [...] Center 12/15/2019 1:00 PM Ulises Parry MD [facility] [address] [place] [address] 12/15/2019 2:45 PM Tucker Wiggins, OT [facility] 04/03/2020 11:30 AM Zak Lee MD [facility] documented in this encounter Medications at [...] again, temperature will be taken, patient and caregiver/regional refrigerated cdl truck driver will be given a mask [...] file Gets together: Not on file Attends holiness service: Not on file Active member of [...] Parry MD - 12/05/2019 1:21 PM EDT [facility] Operative Note Patient Name: Liset Hager : [id number] MR#: [id number] Case Date: 12/05/2019 Surgeon: Surgeon(s) and Role: [...] Operative Note Patient Name: Liset Hager : [id number] MR#: [id number] Case Date: 12/05/2019 Surgeon: Surgeon(s) and Role: [...] Center 12/15/2019 1:00 PM Ulises Parry MD [facility] [address] [place] [address] 12/15/2019 2:45 PM Tucker Wiggins OT [facility] OT [facility] 04/03/2020 11:30 AM Zak Lee MD [facility]UM [facility] documented in this encounter Plan of Treatment [...] Tenolysis Flex Tendon, Palm & Finger, Ea ([id number]) 12/05/2019 11:12 AM EDT Tendon rupture of [...] MD) documented in this encounter Care Teams Manufacturing Project Manager Relationship Specialty Start Date End Date Aneta Perez PA [address] [place] [address] PCP - General Family Medicine 10/17/19 documented as of this encounter
--- OUTSIDE RECORDS SUMMARY | 2023-12-14 02:29 | XMS_ITS | Encounter Summary ---
Author Organization [facility] Address [facility] [place] [address] Care Team Providers Care Swing Type Lathe Operator Name Role Phone Aneta Perez Primary Care Provider [phone] Reason for Referral * Occupational Therapy (Routine) - Closed Specialty Diagnoses / Procedures Referred By Roberto palomares Referred To Contact Diagnoses Tendon rupture of wrist, left, initial encounter Ulises Parry MD [facility] [place] [address] Unknown None Referral ID Status Reason Start Date Expiration Date V isits Requested Visits Authorized [id number] Closed Evaluate and Treat 04/04/2020 10/01/2020 12 12 Encounter Details Date Type Department Care Team (Late st Contact Info) Description 04/04/2020 8:45 AM EST Office Visit Plastic Surgery at [address] [address] Ulises Parry MD [facility] [place] [address] Tendon rupture of wrist, left, initial encounter [...] encounter documented in this encounter Care Teams Swing Type Lathe Operator Relationship Specialty Start Date End Date Aneta Perez PA [address] [place] [address] PCP - General Family Medicine 10/17/19 documented as of this encounter
--- OUTSIDE RECORDS SUMMARY | 2023-12-14 02:29 | XMS_ITS | Encounter Summary ---
Author Organization Formerly [facility], [facility] Address [facility] [place] [address] Care Team Providers Care Real Estate Analyst Name Role Phone Yanique Mandujano MARIAH Primary Care Provider [phone] Reason for Referral * Occupational Therapy (Routine) - Duplicate Referral Specialty Diagnoses / Procedures Referred By Roberto palomares Referred To Contact Occupational Therapy Diagnoses Tendon rupture of wrist, left, initial encounter Ulises Parry MD [facility] [place] [address] [facility] [address] [place] [address] Referral ID Status Reason Start Date Expiration Date Visits Requested Visits Authorized [id number] Duplicate Referral Evaluate and Treat 10/05/2019 10/04/2020 12 12 Reason for Visit * Reason Comments Advice Only RA bilat pain, * Consultation (Routine) - Closed Specialty Diagnoses / Procedures Referred By Contac t Referred To Contact Plastic Surgery Diagnoses Rheumatoid arthritis involving multiple sites with positive rheumatoid factor Tendon dysfunction Zak Lee MD [facility] [place] [address] Ulises Parry MD [facility] [place] [address] Referral ID Status Reason Start Date Expiration Date V isits Requested Visits Authorized [id number] Closed Consult, Test & Treat 09/30/2019 09/29/2020 1 1 Encounter Details Date Type Department Care Team (Late st Contact Info) Description 10/05/2019 9:30 AM EDT Office Visit Plastic Surgery at [facility] [place] [address] Ulises Parry MD [facility] [place] [address] Tendon rupture of wrist, left, initial encounter [...] brush. DO NOT wear any rings, nail latvian or artifical nails. The Same Day Surgery [...] Day of Surgery You will need a coach driver. If you do not have a coach driver, your surgery will be canceled. DO [...] For questions pertaining to your surgical date [phone] For nursing related questions [phone] On weekends, holidays or after office hours: Call [phone] and ask the operator supply to page the Plastic Surgery Resident calendar control clerk blood bank. documented in this encounter Progress Notes * Ulises Parry MD - 10/05/2019 9:30 AM EDT Plastic Surgery Hand Consultation Note I have been asked to see the patient by Dr. Zak Lee CC: RA, painful wrists Hand Dominance: Left hand Occupation: [employer] Workers Compensation: no Mechanism of Injury and [...] left hand (likely flexor synovectomy) with in [facility]. Unfortunately, we do not have the [...] to be non functional. She is an [employer]. She is a diabetic but doesn't check [...] file Gets together: Not on file Attends church service: Not on file Active member of [...] BLUE TEST STRIP Strip as needed. ??? StampsyTOUCH ULTRA2 Kit as needed. ??? clonazePAM (KLONOPIN) [...] FPL index to FPL of long. CPT: 80537 Surgical site: index finger Side: left hand Anesthesia: General Follow up: 7 Days H&P: yes Implants needed: tendon harvester and guaman OT needed at post op visit: yes, dorsal blocking splint Plan: Obtain operative notes from Dr. Delgado ([facility]) Obtain MRI and report from [facility] Proceed with tendon transfer with tendon [...] encounter documented in this encounter Care Teams Real Estate Analyst Relationship Specialty Start Date End Date Yanique Mandujano APRN [address] [place] [phone] PCP - General 04/23/10 10/16/19 documented as of this encounter
--- OUTSIDE RECORDS SUMMARY | 2023-12-14 02:29 | XMS_ITS | Encounter Summary ---
[place] [address] Care Team Providers Care Nursing Staff Development Coordinator Name Role Phone Aneta Perez Primary Care Provider [phone] Reason for Visit * Reason Onset Date Comments New Medication Request 02/01/2020 Encounter Details Date Type Department Care Team (Late st Contact Info) Description 02/01/2020 Tele[place] [address] Juan Manuel Sapp RN New Medication Request Social History Tobacco Use Types Packs/Day Years Used Date Smoking Tobacco: Every Day Cigarettes Smokeless Tobacco: Never Sex and Gender Information Value Date Recorded Sex Assigned at Not on file Gender Identity Not on file Sexual Orientation Not on file documented as of this encounter Miscellaneous Notes * Telephone Encounter - Juan Manuel aSpp RN - 02/13/2020 9:12 AM EDT No RTC will close encounter for now. Sent Xigen message as well. * Telephone Encounter - [...] on filedocumented in this encounter Care Teams Nursing Staff Development Coordinator Relationship Specialty Start Date End Date Aneta Perez PA [address] [place], [place] [id number] PCP - General Family Medicine 10/17/19 documented as of this encounter
--- OUTSIDE RECORDS SUMMARY | 2023-12-14 02:29 | XMS_ITS | Encounter Summary ---
[place] [address] Care Team Providers Care Tube Builder Name Role Phone Aneta Perez Primary Care Provider [phone] Encounter Details Date Type Department Care Team ([facility] st Contact Info) Description 04/20/2020 Telephone [place] [phone] Mel Sevilla Social History Tobacco Use Types Packs/Day Years Used Date Smoking Tobacco: Every Day Cigarettes Smokeless Tobacco: Never Sex and Gender Information Value Date Recorded Sex Assigned at Not on file Gender Identity Not on file Sexual Orientation Not on file documented as of this encounter Miscellaneous Notes * Telephone Encounter - Mel Sevilla - 04/20/2020 8:44 AM EST Caitlyn calls from [facility] to ask for a PA for Liset Mcmillan's rituxan. Per Haley, this medication does not need a PA. Caitlyn at [facility] is requesting a reference number with initials of the person who obtained reference number. documented in this encounter Plan of Treatment Not on file documented as of this encounter Visit Diagnoses Not on filedocumented in this encounter Care Teams Tube Builder Relationship Specialty Start Date End Date Aneta Perez PA [address] [place] [address] PCP - General Family Medicine 10/17/19 documented as of this encounter
--- OUTSIDE RECORDS SUMMARY | 2023-12-14 02:29 | XMS_ITS | Encounter Summary ---
[place] [address] Care Team Providers Care Tree Sapper Name Role Phone Aneta Perez Primary Care Provider [phone] Encounter Details Date Type Department Care Team (Late st Contact Info) Description 04/12/2020 Telephone [place] [phone] Lidia Vale Social History Tobacco Use Types [...] on filedocumented in this encounter Care Teams Tree Sapper Relationship Specialty Start Date End Date Aneta Perez PA [address] [place] [address] PCP - General Family Medicine 10/17/19 documented as of this encounter
--- OUTSIDE RECORDS SUMMARY | 2023-12-14 02:29 | XMS_ITS | Encounter Summary ---
[place] [address] Care Team Providers Care Surgery Scheduling Coordinator Name Role Phone Aneta Perez Primary Care Provider [phone] Reason for Visit * Auth/Cert Specialty Diagnoses / Procedures Referred By Contdacia t Referred To Contact Diagnoses tendon injury Procedures PRO TENOLYSIS, FLEX TENDON, PALM/FINGER, EA TENOLYSIS, FLEXOR TENDON, PALM OR FINGER, EACH (WRVU 5.16) Referral ID Status Reason Start Date Expiration Date Visits Re quested Visits Authorized [id number] 1 1 Encounter Details Date Type Department Care Team (Late st Contact Info) Description 03/26/2020 12:13 PM EDT Anesthesia Event Outpatient [place] [address] Rianna Ramírez DO [facility] [place] [address] John López MD [facility] [place] [address] Anesthesia Record Procedure Summary Procedure Name Responsible [...] Time: 0808 12/05/19 1123 by Nelsy Allen, AIRCRAFT INSTRUMENT REPAIRER 10/01/20 0808 by Kim Rascon RN Incision [...] 1144; median vein (underside of arm), right; wmog-cfd-msuaro catheter system; 22 gauge; BB; distraction, intradermal [...] Procedure Summary Date: 03/26/20 Room / Location: [facility] OR [address] [place] [address] Anesthesia Start: 1213 Anesthesia Stop: 1345 Procedures: [...] All Anesthesia Providers: Anesthesiologist: Rianna Ramírez DO AIRCRAFT INSTRUMENT REPAIRER: Danica Bell CRNA Vitals Value Taken Time BP 136/78 03/26/20 1415 Temp 36.4 ??C (97.5 ??F) 03/26/20 1344 Pulse 101 03/26/20 1420 Resp 16 03/26/20 1415 SpO2 99 % 03/26/20 1419 Pain Level 0 03/26/20 1415 Vitals shown include unvalidated device data. Patient Location: PACU/[facility] Level of Consciousness: Awake and Alert [...] wrist Added automatically from request for surgery [id number] ??? Tendon dysfunction ??? Rheumatoid arthritis involving [...] MD at [facility] Social History Tobacco Use [...] with patient and spouse. Plan discussed with AIRCRAFT INSTRUMENT REPAIRER. PAT Clinic Note documented in this encounter [...] r documented in this encounter Care Teams Surgery Scheduling Coordinator Relationship Specialty Start Date End Date Aneta Perez PA [address] [place] [address] PCP - General Family Medicine 10/17/19 documented as of this encounter
--- OUTSIDE RECORDS SUMMARY | 2023-12-14 02:29 | XMS_ITS | Encounter Summary ---
Author Organization [facility] Address [facility] [place] [address] Care Team Providers Care Information Specialist Name Role Phone Aneta Perez Primary Care Provider [phone] Reason for Referral * Occupational Therapy (Routine) - Specialty Diagnoses / Procedures Referred By Roberto palomares Referred To Contact Occupational Therapy Diagnoses Tendon rupture of wrist, left, initial encounter No surgery date Ulises Parry MD [facility] [place] [address] [facility] Re[facility] [address] [place] [address] Referral ID Status Reason Start Date Expiration Date V isits Requested Visits Authorized [id number] Evaluate and Treat 02/16/2020 02/15/2021 12 12 Reason for Visit * Reason Comments Follow Up Surgery s/p left index finge r tenolysis Encounter Details Date Type Department Care Team (Late st Contact Info) Description 02/16/2020 8:30 AM EDT Office [place] [address] Ulises Parry MD [facility] [place] [address] Tendon rupture of wrist, left, [...] Patient Instructions * Patient Instructions* Lubna Edward, [facility] - 02/16/2020 8:30 AM EDT You were [...] brush. DO NOT wear any rings, nail swazi or artifical nails. The Same Day Surgery [...] Day of Surgery You will need a driver manager. If you do not have a driver manager, your surgery will be canceled. DO NOT [...] For questions pertaining to your surgical date [phone] For nursing related questions [phone] On weekends, holidays or after office hours: Call and ask the temper mill operator to page the Plastic Surgery Resident counterperson. A corticosteroid, or steroid, injection is used [...] complication. Kenalog expiration date: 05/2021 Lot number: [id number] Xylocaine expiration date: 09/21 Lot number: [id number] Impression: Liset Hager is a 39 y.o. [...] Timeframe: one month Procedure: Tenolysis flexor CPT: 04018 Surgical site: index finger Side: left Anesthesia: [...] section) documented in this encounter Care Teams Information Specialist Relationship Specialty Start Date End Date Aneta Perez PA [address] [place] [address] PCP - General Family Medicine 10/17/19 documented as of this encounter
--- OUTSIDE RECORDS SUMMARY | 2023-12-14 02:29 | XMS_ITS | Encounter Summary ---
Author Organization [facility] [place] [address] Care Team Providers Care Inspector Health Care Facilities Name Role Phone Aneta Perez Primary Care Provider [phone] Encounter Details Date Type Department Care Team (Late st Contact Info) Description 09/06/2020 Orders [place] [address] Zak Lee MD [facility] [place] [address] Social History Tobacco Use Types Packs/Day Years [...] on filedocumented in this encounter Care Teams Inspector Health Care Facilities Relationship Specialty Start Date End Date Aneta Perez PA [address] [place] [address] PCP - General Family Medicine 10/17/19 documented as of this encounter
--- OUTSIDE RECORDS SUMMARY | 2023-12-14 02:29 | XMS_ITS | Encounter Summary ---
Author Organization [facility] Address [facility] [place] [address] Care Team Providers Care Yard Cleaner Name Role Phone Aneta Perez Primary Care Provider [phone] Reason for Visit * Reason Comments Follow Up Surgery s/p tendon transfer Encounter Details Date Type Department Care Team (Late st Contact Info) Description 01/04/2020 8:30 AM EDT Office [place] [address] Ulises Parry MD [facility] [place] [address] Follow-up exam Social History Tobacco Use Types [...] one month Consider E-Stem treatment with - [facility]. Focus on PROM I, Do Esposito, have performed the documentation for this encounter in the presence of and acting as a scribe for Ulises Parry MD. documented in this encounter Plan of Treatment Not on file documented as of this encounter Visit Diagnoses Diagnosis Follow-up exam Unspecified follow-up examination documented in this encounter Care Teams Yard Cleaner Relationship Specialty Start Date End Date Aneta Perez PA [address] [place] [address] PCP - General Family Medicine 10/17/19 documented as of this encounter
--- OUTSIDE RECORDS SUMMARY | 2023-12-14 02:29 | XMS_ITS | Encounter Summary ---
Author Organization [facility] Address [facility] [place] [address] Care Team Providers Care Java Consultant Name Role Phone Aneta Perez Primary Care Provider [phone] Encounter Details Date Type Department Care Team (Late st Contact Info) Description 04/11/2020 11:45 AM EST Office Visit Plastic Surgery at [address] [address] Ulises Parry MD [facility] [place] [address] Surgery follow-up Social History Tobacco Use Types [...] surgery documented in this encounter Care Teams Java Consultant Relationship Specialty Start Date End Date Aneta Perez PA [address] [place] [address] PCP - General Family Medicine 10/17/19 documented as of this encounter
--- OUTSIDE RECORDS SUMMARY | 2023-12-14 02:29 | XMS_ITS | Encounter Summary ---
Author Organization [facility] Address [facility] [place] [address] Care Team Providers Care Housing Property Manager Name Role Phone Yanique Mandujano MARIAH Primary Care Provider [phone] Reason for Visit * High Dollar Medication (Routine) - Closed Specialty Diagnoses / Procedures Referred By Contdacia t Referred To Contact Med Infusion Diagnoses Rheumatoid arthritis involving multiple sites with positive rheumatoid factor Zak Lee MD [facility] [place] [address] [facility] Med Infusion [address] [place] [phone] Referral ID Status Reason Start Date Expiration Date V isits Requested Visits Authorized [id number] Closed Consult, Test & Treat 10/03/2019 10/01/2020 2 2 Encounter Details Date Type Department Care Team (Latest Contact Info) Description 10/03/2019 10:16 AM EDT - 10/03/2019 11:59 PM EDT Hospital Encounter [place] [address] Rheumatoid arthritis involving multiple sites with positive [...] Take 1 tablet by mouth daily. 05/13/2018 Film[employer] ULTRA BLUE TEST STRIP Strip as needed. 01/25/2018 [employer] ULTRA2 Kit as needed. 01/25/2018 lamoTRIgine (LAMICTAL) [...] mg documented in this encounter Care Teams Housing Property Manager Relationship Specialty Start Date End Date Yanique Mandujano APRN [address] [place] [phone] PCP - General 04/23/10 10/16/19 documented as of this encounter
--- OUTSIDE RECORDS SUMMARY | 2023-12-14 02:29 | XMS_ITS | Encounter Summary ---
Author Organization [facility] Address [facility] [place] [address] Care Team Providers Care Payroll Auditor Name Role Phone Yanique Mandujano MARIAH Primary Care Provider [phone] Reason for Referral * High Dollar Medication (Routine) - Closed Specialty Diagnoses / Procedures Referred By Contac t Referred To Contact Med Infusion Diagnoses Rheumatoid arthritis involving multiple sites with positive rheumatoid factor Zak Lee MD [facility] [place] [address] [facility] Med Infusion [address] [place] [address] Referral ID Status Reason Start Date Expiration Date V isits Requested Visits Authorized [id number] Closed Consult, Test & Treat 10/03/2019 10/01/2020 2 2 Encounter Details Date Type Department Care Team (Late st Contact Info) Description 09/16/2019 Orders [place] [address] Zak Lee MD [facility] [place] [address] Rheumatoid arthritis involving multiple sites with positive [...] factor documented in this encounter Care Teams Payroll Auditor Relationship Specialty Start Date End Date Yanique Mandujano APRN [address] [place] [address] PCP - General 04/23/10 10/16/19 documented as of this encounter
--- OUTSIDE RECORDS SUMMARY | 2023-12-14 02:29 | XMS_ITS | Encounter Summary ---
Author Organization [facility] [place] [address] Care Team Providers Care Rolling Machine Tender Name Role Phone Aneta Perez Primary Care Provider [phone] Encounter Details Date Type Department Care Team (Late st Contact Info) Description 08/17/2020 External Results [place] [address] Zak Lee MD [facility] [place] [address] Social History Tobacco Use Types Packs/Day Years [...] on filedocumented in this encounter Care Teams Rolling Machine Tender Relationship Specialty Start Date End Date Aneta Perez PA [address] [place] [address] PCP - General Family Medicine 10/17/19 documented as of this encounter
--- OUTSIDE RECORDS SUMMARY | 2023-12-14 02:29 | XMS_ITS | Encounter Summary ---
[place] [address] Care Team Providers Care Pet Care Associate Name Role Phone Aneta Perez Primary Care Provider [phone] Reason for Visit * Reason Onset Date Comments Other 04/18/2020 Encounter Details Date Type Department Care Team ([facility] st Contact Info) Description 04/18/2020 Tele[place] [address] Kvng Rust RN Other Social History Tobacco [...] 04/18/2020 10:45 AM EST Faxed Caitlyn @ [place] the request for a height of Liset Mcmillan. documented in this encounter Plan of Treatment Not on file documented as of this encounter Visit Diagnoses Not on filedocumented in this encounter Care Teams Pet Care Associate Relationship Specialty Start Date End Date Aneta Perez PA [address] [place] [address] PCP - General Family Medicine 10/17/19 documented as of this encounter
--- OUTSIDE RECORDS SUMMARY | 2023-12-14 02:29 | XMS_ITS | Encounter Summary ---
[place] [address] Care Team Providers Care Barrer And Tacker Name Role Phone Aneta Perez Primary Care Provider [phone] Reason for Visit * Reason Onset Date Comments Follow-up 04/16/2020 Encounter Details Date Type Department Care Team (Late st Contact Info) Description 04/16/2020 Tele[place] [address] Juan Manuel Sapp RN Follow-up Social History [...] MAILBOX IS FULL. I sent her a InnoPad message. documented in this encounter Plan of Treatment Not on file documented as of this encounter Visit Diagnoses Not on filedocumented in this encounter Care Teams Barrer And Tacker Relationship Specialty Start Date End Date Aneta Perez PA [address] [place] [address] PCP - General Family Medicine 10/17/19 documented as of this encounter
--- OUTSIDE RECORDS SUMMARY | 2023-12-14 02:29 | XMS_ITS | Encounter Summary ---
Author Organization [facility] [place] [address] Care Team Providers Care Banking Attorney Name Role Phone Aneta Perez Primary Care Provider [phone] Reason for Visit * Occupational Therapy (JENS) - Specialty Diagnoses / Procedures Referred By Roberto palomares Referred To Contact Occupational Therapy Diagnoses Tendon dysfunction Ulises Steel MD [facility] [place] [address] Tucker Wiggins, OT [facility] PHYSICAL MEDICINE & [place] [address] Referral ID Status Reason Start Date Expiration Date V isits Requested Visits Authorized [id number] Evaluate and Treat 12/05/2019 12/04/2020 12 12 Encounter Details Date Type Department Care Team (Late st Contact Info) Description 12/15/2019 2:30 PM EDT Office Visit Occupational Therapy at [place] [address] [place] [address] Tucker Wiggins, OT [facility] PHYSICAL MEDICINE & [place] [address] Tendon dysfunction Social History Tobacco Use Types [...] History and/or Co-morbidities: 1. Tendon dysfunction Occupation: [employer] Vocational status: off work now due to [...] boyfriend. 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 Short Term Goals (to be met [...] bursa documented in this encounter Care Teams Banking Attorney Relationship Specialty Start Date End Date Aneta Perez PA [address] [place] [address] PCP - General Family Medicine 10/17/19 documented as of this encounter
--- OUTSIDE RECORDS SUMMARY | 2023-12-14 02:29 | XMS_ITS | Encounter Summary ---
Author Organization [facility] [place] [address] Care Team Providers Care Upper Shaper Name Role Phone Aneta Perez Primary Care Provider [phone] Reason for Visit * Reason Onset Date Comments Prior Authorization 04/20/2020 Encounter Details Date Type Department Care Team (Late st Contact Info) Description 04/20/2020 [place] [address] Cynthia Partida Prior Authorization Social History Tobacco [...] (Karl) Rationale for request: RA Health plan: [place] Medicaid ([facility]) Authorizing inbound call center representative name: Haley Sent to health plan on: 04/20/20 Health plan decision: Not required Quantity approved: Authorization number: Start date: End date: documented in this encounter Plan of Treatment Not on file documented as of this encounter Visit Diagnoses Not on filedocumented in this encounter Care Teams Upper Shaper Relationship Specialty Start Date End Date Aneta Perez PA [address] [place] [address] PCP - General Family Medicine 10/17/19 documented as of this encounter
--- OUTSIDE RECORDS SUMMARY | 2023-12-14 02:29 | XMS_ITS | Encounter Summary ---
[facility] [place] [address] Care Team Providers Care Manifold Operator Name Role Phone Aneta Perez Primary Care Provider Reason for Visit * Reason Onset Date Comments Other 05/01/2020 Encounter Details Date Type Department Care Team (Late st Contact Info) Description 05/01/2020 [place] [phone] Kvng Rust RN Other Social History Tobacco [...] sen them a script? Thanks, RTC to [facility] and they want it sent to her to take prior to the infusion. I called Liset Mcmillan and she agreed, and I see that Dr. Lee has already sent it to her pharmacy, thank you. * Telephone Encounter - Kvng Rust RN - 05/01/2020 4:12 PM EST RTC to Chelsie at [facility] and she reports that Liset [...] on filedocumented in this encounter Care Teams Manifold Operator Relationship Specialty Start Date End Date Aneta Perez PA [address] [place] [phone] PCP - General Family Medicine 10/17/19 documented as of this encounter
--- OUTSIDE RECORDS SUMMARY | 2023-12-14 02:29 | XMS_ITS | Encounter Summary ---
[place] [address] Care Team Providers Care Electrical Estimator Name Role Phone Aneta Perez Primary Care Provider [phone] Encounter Details Date Type Department Care Team (Late st Contact Info) Description 03/26/2020 Telephone [place] [phone] Fabiola Batista RN Social History Tobacco Use [...] filedocumented in this encounter Care Teams Electrical Estimator Relationship Specialty Start Date End Date Aneta Perez PA [address] [place] [address] PCP - General Family Medicine 10/17/19 documented as of this encounter
--- OUTSIDE RECORDS SUMMARY | 2023-12-14 02:29 | XMS_ITS | Encounter Summary ---
Author Organization [facility] Address [facility] [place] [address] Care Team Providers Care Multimedia Educational Specialist Name Role Phone Aneta Perez Primary Care Provider [phone] Encounter Details Date Type Department Care Team (Late st Contact Info) Description 08/14/2020 10:30 AM EDT TH Visit (TeleHealth) [place] [address] Zak Lee MD [facility] [place] [address] Rheumatoid arthritis involving multiple sites with positive rheumatoid factor; Other secondary osteoarthritis of multiple sites; High risk medication use; Tendon dysfunction; Other specified diabetes mellitus with other specified complication, unspecified whether long-term insulin use; Depression, unspecified depression type; Anxiety; [...] scheduled as quickly as possible up at [facility]. Again, we will be giving her 1 [...] AM EDT Rheumatology Clinic: Dr. Lee 08/14/2020 [id number] This is a TeleHealth telephone visit for Liset Hager in follow-up of her seropositive rheumatoid arthritis with quite a bit of secondary damage already. When we assumed her care, we started brad Rituxan, 2 infusions every 6 months. That has worked well for her, but after her last set of infusions done at [facility] about 4 months ago, she has broken [...] ER physician, Dr. Sylwia Jackson, up but [facility] on 07/31/2020 when the patient came back [...] appointment for the following day here at [facility] with the intention of switching her Rituxan infusions to every 4 weeks. Unfortunately she canceled the appointment early the following day. We have still been communicating with her and have begun the process for getting her another infusion of Rituxan up at [facility] as soon as possible. We went over [...] are better. She told me that the building trades teacher did not want to repeat her EGD [...] changed there. This will be done at [facility]. Patient Active Problem List Diagnosis Code ??? [...] scheduled as quickly as possible up at [facility]. Again, we will be giving her 1 [...] Total visit time: 40 minutes. Visit level: 34531. Visit Diagnoses: 1. Rheumatoid arthritis involving multiple sites with positive rheumatoid factor 2. Other secondary osteoarthritis of multiple sites 3. High risk medication use 4. Tendon dysfunction 5. Other specified diabetes mellitus with other specified complication, unspecified whether long-term insulin use 6. Depression, unspecified depression type [...] mellitus with other specified complication, unspecified whether keno terminal operator insulin use Depression, unspecified depression type Anxiety Anxiety state, unspecified Chronic pain of both knees documented in this encounter Care Teams Multimedia Educational Specialist Relationship Specialty Start Date End Date Aneta Perez PA [address] [place] [address] PCP - General Family Medicine 10/17/19 documented as of this encounter
--- OUTSIDE RECORDS SUMMARY | 2023-12-14 02:29 | XMS_ITS | Encounter Summary ---
[place] [address] Care Team Providers Care Accounting Clerk Name Role Phone Yanique Mandujano APRN Primary Care Provider [phone] Encounter Details Date Type Department Care Team (Late st Contact Info) Description 09/30/2019 Specialty [place] [id number] Maude Byrd, TELLER Social History Tobacco Use Types Packs/Day Years [...] on filedocumented in this encounter Care Teams Accounting Clerk Relationship Specialty Start Date End Date Yanique Mandujano APRN [address] [place] [phone] PCP - General 04/23/10 10/16/19 documented as of this encounter
--- OUTSIDE RECORDS SUMMARY | 2023-12-14 02:29 | XMS_ITS | Encounter Summary ---
[place] [address] Care Team Providers Care Fare Collector Name Role Phone Aneta Perez Primary Care Provider [phone] Reason for Visit * Reason Onset Date Comments Follow-up 04/16/2020 Encounter Details Date Type Department Care Team (Late st Contact Info) Description 04/16/2020 Telephone [place] [phone] Juan Manuel Sapp RN Follow-up Social History [...] and the demographics of the patient to [place]. Height is 157.5 cm Given to nursing at [facility]. Called to advise of message above and was told that writing that a PA is not needed is not acceptable. They are requesting a reference # indicating this. Please fax to [phone] * Telephone Encounter - Juan Manuel Sapp RN - 04/17/2020 11:25 AM EST Call received from Caitlyn at [facility]. She states she received a referral but she is missing information. RTC to Caitlyn and she would like the PA, Demographics and Height faxed to [phone]. Caitlyn states they will schedule once the information is received. * Telephone Encounter - Juan Manuel Sapp RN - 04/16/2020 4:10 PM EST Liset calls to state that she does not know when she will receive her infusions. She is waiting to hear from [facility] about appointment. Liset reports her pain is [...] on filedocumented in this encounter Care Teams Fare Collector Relationship Specialty Start Date End Date Aneta Perez PA [address] [place] [address] PCP - General Family Medicine 10/17/19 documented as of this encounter
--- OUTSIDE RECORDS SUMMARY | 2023-12-14 02:29 | XMS_ITS | Encounter Summary ---
[place] [address] Care Team Providers Care Content Curator Name Role Phone Aneta Perez Primary Care Provider [phone] Encounter Details Date Type Department Care Team (Late st Contact Info) Description 04/30/2020 Telephone [place] [phone] Dong Roldan Social History Tobacco Use Types [...] to schedule 6 month f/u with Dr. eLe. documented in this encounter Plan of Treatment Not on file documented as of this encounter Visit Diagnoses Not on filedocumented in this encounter Care Teams Content Curator Relationship Specialty Start Date End Date Aneta Perez PA [address] [place] [address] PCP - General Family Medicine 10/17/19 documented as of this encounter
--- OUTSIDE RECORDS SUMMARY | 2023-12-14 02:29 | XMS_ITS | Encounter Summary ---
[place] [address] Care Team Providers Care On Site Wastewater Systems Technician Name Role Phone Aneta Perez Primary Care Provider [phone] Reason for Visit * Auth/Cert Specialty Diagnoses / Procedures Referred By Contac t Referred To Contact Diagnoses tendon injury Procedures PRO TENOLYSIS, FLEX TENDON, PALM/FINGER, EA TENOLYSIS, FLEXOR TENDON, PALM OR FINGER, EACH (WRVU 5.16) Referral ID Status Reason Start Date Expiration Date Visits Re quested Visits Authorized [id number] 1 1 Encounter Details Date Type Department Care Team (Late st Contact Info) Description 03/26/2020 12:10 PM EDT - 03/26/2020 1:30 PM EDT Surgery [place] [address] Ulises Parry MD [facility] [place] [place] [address] TENOLYSIS, FLEXOR TENDON, PALM OR FINGER, EACH [...] If taking narcotics, we recommend taking an jgrj-ysu-bzicgnt stool softener to prevent constipation. Call our [...] about scheduling, please contact our administrative officesat [phone] For clinical questions, please call our nurses at [phone] Both offices are open Thursday thru Thursday 8a - 5p. With emergencies after hours, call the hospital dairy processing equipment operator at [phone] and ask for the Plastic Surgery Resident immigration case worker. FOLLOW UP: Future Appointments and Orders Future Appointments and Orders Future Appointments Provider Department Dept Phone 04/03/2020 11:30 AM Zak Lee MD Rheumatology at [facility] Arrive at: Cash Teller Area [phone] 04/03/2020 1:00 PM Ulises Parry MD Plastic Surgery at [facility] Arrive at: Cash Teller Area [phone] 04/03/2020 1:30 PM Tucker Wiggins OT Occupational Therapy at [facility] Arrive at: Cash Teller 1 [facility] [phone] documented in this encounter Medications at Time [...] patient was questioned regarding travel outside of [facility], fever, cough, SOB or other illness in [...] again, temperature will be taken, patient and caregiver/concrete mixer truck driver will be given a mask [...] Ulises Parry MD at [facility] History reviewed. No pertinent family [...] file Gets together: Not on file Attends synagogue service: Not on file Active member of [...] Molly Ramos MD Plastic Surgery Resident P# [id number] documented in this encounter Miscellaneous Notes * Op Note - Ulises Parry MD - 03/26/2020 1:43 PM EDT [facility] Operative Note Patient Name: Liset Hager : [id number] MR#: [id number] Case Date: 03/26/2020 Surgeon: Surgeon(s) and Role: [...] At this point we proceeded with a pkil-ok-olho middle finger to index finger FDP transfer. Using 3-0 fiberwire, the tendons were secured together with rgchbp-xo-nblht sutures so that the index FDP was [...] Operative Note Patient Name: Liset Hager : [id number] MR#: [id number] Case Date: 03/26/2020 Surgeon: Surgeon(s) and Role: [...] Center 04/03/2020 11:30 AM Zak Lee MD [facility] RHEUM [facility] 04/03/2020 1:30 PM Tucker Wiggins, OT [facility] OT [facility] documented in this encounter Plan [...] Adj Tiss Transfer Head, Fac, Hand <10Sqcm ([id number]) 03/26/2020 12:13 PM EDT Tendon rupture of wrist, left, initial encounter Transplant Forearm/Wrist Tendon ([id number]) 03/26/2020 12:13 PM EDT Tendon rupture of wrist, left, initial encounter Tenolysis, Flex Tendon, Palm/Finger, Ea ([id number]) 03/26/2020 12:13 PM EDT Tendon rupture of [...] MD) documented in this encounter Care Teams On Site Wastewater Systems Technician Relationship Specialty Start Date End Date Aneta Perez PA [address] [place] [address] PCP - General Family Medicine 10/17/19 documented as of this encounter
--- OUTSIDE RECORDS SUMMARY | 2023-12-14 02:29 | XMS_ITS | Encounter Summary ---
Author Organization [facility] [place] [address] Care Team Providers Care Stave Log Cut Off Saw Operator Name Role Phone Aneta Perez Primary Care Provider [phone] Reason for Visit * High Dollar Medication (Routine) - Closed Specialty Diagnoses / Procedures Referred By Contac t Referred To Contact Med Infusion Diagnoses Rheumatoid arthritis involving multiple sites with positive rheumatoid factor Zak Lee MD [facility] [place] [address] [facility] Med Infusion [address] [place] [phone] Referral ID Status Reason Start Date Expiration Date V isits Requested Visits Authorized [id number] Closed Consult, Test & Treat 10/03/2019 10/01/2020 2 2 Encounter Details Date Type Department Care Team (Latest Contact Info) Description 10/17/2019 10:28 AM EDT - 10/17/2019 11:59 PM EDT Hospital Encounter [place] [address] Rheumatoid arthritis involving multiple sites [...] Take 1 tablet by mouth daily. 05/13/2018 [employer] ULTRA BLUE TEST STRIP Strip as needed. 01/25/2018 [employer] ULTRA2 Kit as needed. 01/25/2018 lamoTRIgine (LAMICTAL) [...] mg documented in this encounter Care Teams Stave Log Cut Off Saw Operator Relationship Specialty Start Date End Date Aneta Perez PA [address] [place] [address] PCP - General Family Medicine 10/17/19 documented as of this encounter
--- OUTSIDE RECORDS SUMMARY | 2023-12-14 02:29 | XMS_ITS | Encounter Summary ---
[place] [address] Care Team Providers Care Complaint Analyst Name Role Phone Yanique Mandujano APRN Primary Care Provider [phone] Encounter Details Date Type Department Care Team (Late st Contact Info) Description 09/30/2019 Specialty [place] [phone] Maude Byrd, TRUCK LOADER OVERHEAD CRANE Social History Tobacco Use Types Packs/Day Years [...] on filedocumented in this encounter Care Teams Complaint Analyst Relationship Specialty Start Date End Date Yanique Mandujano APRN [address] [place] [phone] PCP - General 04/23/10 10/16/19 documented as of this encounter
--- OUTSIDE RECORDS SUMMARY | 2023-12-14 02:29 | XMS_ITS | Encounter Summary ---
Author Organization [facility] [place] [address] Care Team Providers Care Anvil Seating Press Operator Name Role Phone Aneta Perez Primary Care Provider [phone] Reason for Visit * Auth/Cert Specialty Diagnoses / Procedures Referred By Contac t Referred To Contact Diagnoses tendon injury Procedures PRO TENOLYSIS, FLEX TENDON, PALM/FINGER, EA TENOLYSIS, FLEXOR TENDON, PALM OR FINGER, EACH (WRVU 5.16) Referral ID Status Reason Start Date Expiration Date Visits Re quested Visits Authorized [id number] 1 1 Encounter Details Date Type Department Care Team (Latest Contact Info) Description 03/26/2020 10:38 AM EDT - 03/26/2020 2:46 PM EDT Hospital Encounter Outpatient [place] [address] Ulises Parry MD [facility] [place] [address] Tendon rupture of wrist, left, initial encounter [...] If taking narcotics, we recommend taking an lyhb-ogn-lhbslfp stool softener to prevent constipation. Call our [...] about scheduling, please contact our administrative officesat [phone] For clinical questions, please call our nurses at [phone] Both offices are open Thursday thru Thursday 8a - 5p. With emergencies after hours, call the hospital glass laminating operator at [phone] and ask for the Plastic Surgery Resident nuclear weapons specialist. FOLLOW UP: Future Appointments and Orders Future Appointments and Orders Future Appointments Provider Department Dept Phone 04/03/2020 11:30 AM Zak Lee MD Rheumatology at [facility] Arrive at: Director Nurses' Registry Area [phone] 04/03/2020 1:00 PM Ulises Parry MD Plastic Surgery at [facility] Arrive at: Director Nurses' Registry Area [phone] 04/03/2020 1:30 PM Tucker Wiggins OT Occupational Therapy at [facility] Arrive at: Director Nurses' Registry 1 [facility] [phone] documented in this encounter Medications at Time of Discharge Medication Sig Dispensed Refills Start Date End Date rituximab (RITUXAN IV) Inject into the vein. albuterol (PROVENTIL) 2.5 mg /3 mL (0.083 %) Solution for Nebulization prn 09/29/2018 amitriptyline (ELAVIL) 100 mg Tablet Take 1 tablet by mouth daily. 05/13/2018 [employer] ULTRA BLUE TEST STRIP Strip as needed. 01/25/2018 [employer] ULTRA2 Kit as needed. 01/25/2018 lamoTRIgine (LAMICTAL) [...] patient was questioned regarding travel outside of [facility], fever, cough, SOB or other illness [...] again, temperature will be taken, patient and caregiver/port cdl a driver will be given a mask to [...] 9.75) performed by Ulises Parry MD at [facility] History reviewed. No pertinent family [...] file Gets together: Not on file Attends roman catholic service: Not on file Active member of [...] Molly Ramos MD Plastic Surgery Resident P# [id number] documented in this encounter Miscellaneous Notes * Op Note - Ulises Parry MD - 03/26/2020 1:43 PM EDT [facility] Operative Note Patient Name: Liset Hager : [id number] MR#: [id number] Case Date: 03/26/2020 Surgeon: Surgeon(s) and Role: [...] At this point we proceeded with a pisq-nf-dbxl middle finger to index finger FDP transfer. Using 3-0 fiberwire, the tendons were secured together with udhebt-wf-hiltl sutures so that the index FDP was [...] Operative Note Patient Name: Liset Hager : [id number] MR#: [id number] Case Date: 03/26/2020 Surgeon: Surgeon(s) and Role: [...] Center 04/03/2020 11:30 AM Zak Lee MD [facility] RHEUM [facility] 04/03/2020 1:30 PM Tucker Wiggins, OT [facility] OT [facility] documented in this encounter Plan of [...] Adj Tiss Transfer Head, Fac, Hand <10Sqcm ([id number]) 03/26/2020 12:13 PM EDT Tendon rupture of wrist, left, initial encounter Transplant Forearm/Wrist Tendon ([id number]) 03/26/2020 12:13 PM EDT Tendon rupture of wrist, left, initial encounter Tenolysis, Flex Tendon, Palm/Finger, Ea ([id number]) 03/26/2020 12:13 PM EDT Tendon rupture of [...] MD) documented in this encounter Care Teams Anvil Seating Press Operator Relationship Specialty Start Date End Date Aneta Perez PA [address] [place] [address] PCP - General Family Medicine 10/17/19 documented as of this encounter
--- OUTSIDE RECORDS SUMMARY | 2023-12-14 02:29 | XMS_ITS | Encounter Summary ---
Author Organization [facility] [place] [address] Care Team Providers Care Sheet Metal Assembler And Riveter Name Role Phone Aneta Perez Primary Care Provider [phone] Encounter Details Date Type Department Care Team (Late st Contact Info) Description 04/11/2020 11:45 AM EST Office Visit Occupational Therapy at [address] [phone] Liss Armstrong, OT [facility] PHYSICAL MEDICINE & [place] [address] Tendon dysfunction Social History Tobacco Use Types [...] 1. Tendon dysfunction 2. 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 She has not returned to work as an BEAD CUTTER. 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 Manage transportation needs [...] of her index yet; initiate local therapy( [facility]) for Passive mobility of her index finger [...] for one-handed duty to work as an BEAD CUTTER but has not returned to work [employer] (31742) 20 min Therex: Strength/Endurance/ROM (03746) 20 min Educated patient in etiology and biomechanics as related to patient's symptoms Referral provided for her to initiate OT locally/ [facility]. Has good relationship with her OT [...] bursa documented in this encounter Care Teams Sheet Metal Assembler And Riveter Relationship Specialty Start Date End Date Aneta Perez PA [address] [place] [address] PCP - General Family Medicine 10/17/19 documented as of this encounter
--- OUTSIDE RECORDS SUMMARY | 2023-12-14 02:29 | XMS_ITS | Encounter Summary ---
Author Organization [facility] Address [facility] [place] [address] Care Team Providers Care Claims Clerk Name Role Phone Yanique Mandujano MARIAH Primary Care Provider [phone] Reason for Referral * Consultation (Routine) - Closed Specialty Diagnoses / Procedures Referred By Roberto palomares Referred To Contact Plastic Surgery Diagnoses Rheumatoid arthritis involving multiple sites with positive rheumatoid factor Tendon dysfunction Zak Lee MD [facility] [place] [address] Ulises Parry MD [facility] [place] [address] Referral ID Status Reason Start Date Expiration Date V isits Requested Visits Authorized [id number] Closed Consult, Test & Treat 09/30/2019 09/29/2020 1 1 Encounter Details Date Type Department Care Team (Late st Contact Info) Description 09/30/2019 1:30 PM EDT TH Visit (TeleHealth) [place] [address] Zak Lee MD [facility] [address] Rheumatoid arthritis involving multiple sites [...] PM EDT Rheumatology Clinic: Dr. Lee 09/30/2019 [id number] This is a TeleHealth phone visit for Liset Hager in follow-up of her seropositive rheumatoid arthritis. We have seen her twice, on 06/02/2018 and 11/30/2018. She had previously followed with Dr. Morgan in [place]. She had previously been on methotrexate and [...] first infusion on 10/03/2019. She now has [facility] medical insurance. To tide her over [...] October and March by Dr. Delgado in [place]. The first one was complicated by the need to remove a lot of inflamed synovium. The second procedure in March was to try and correct some persistent problems with tendon motion. But unfortunately she has had ongoing problems there between the index finger and thumb and she wondered if she might get a second opinion from a surgeon here at [facility]. We then talked about the COVID-19 pandemic. 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 Fortunately nobody in that facility has, gotten sick. Her daughter goes back and forth between her home and that of her biological father. Unfortunately her 16-year-old was hospitalized at [place] for a suicide attempt but she is [...] about her family and the patients at [employer] [employer]. Assessment: Her rheumatoid is flaring, but that [...] her in follow-up in 6 months, hopefully [id number] as the pandemic quiets down. Visit Diagnoses: 1. Rheumatoid arthritis involving multiple sites with positive rheumatoid factor 2. Graves disease 3. High risk medication use 4. Tendon dysfunction Orders Placed This Encounter Procedures ??? Referral to Plastic Surgery Total phone time: 14 min, 51 sec. Total visit time: >25 min. Visit level: 76357. documented in this encounter Plan of Treatment [...] bursa documented in this encounter Care Teams Claims Clerk Relationship Specialty Start Date End Date Yanique Mandujano APRN [address] [place] [phone] PCP - General 04/23/10 10/16/19 documented as of this encounter
--- OUTSIDE RECORDS SUMMARY | 2023-12-14 02:29 | XMS_ITS | Encounter Summary ---
Author Organization [facility] [place] [address] Care Team Providers Care Nursing Staff Development Coordinator Name Role Phone Aneta Perez Primary Care Provider [phone] Encounter Details Date Type Department Care Team ([facility] st Contact Info) Description 05/03/2020 Orders Only [place] [address] Zak Lee MD [facility] DR [place]UMATOLOGY [place] [address] High risk medication use; Infusion reaction, subsequent [...] vomiting documented in this encounter Care Teams Nursing Staff Development Coordinator Relationship Specialty Start Date End Date Aneta Perez PA [address] [place] [address] PCP - General Family Medicine 10/17/19 documented as of this encounter
--- OUTSIDE RECORDS SUMMARY | 2023-12-14 02:29 | XMS_ITS | Encounter Summary ---
[place] [address] Care Team Providers Care Fur Repairer Name Role Phone Aneta Perez Primary Care Provider [phone] Encounter Details Date Type Department Care Team (Latest Contact Info) Description 04/11/2020 1:00 PM EST Laboratory Appointment Lab [address] [place] [address] High risk medication use; Rheumatoid arthritis involving multiple sites with positive rheumatoid factor; Other specified diabetes mellitus with other specified complication, unspecified whether residential insulin use Social History Tobacco Use Types [...] specified complication, unspecified whether residential insulin use HC IGG, SERUM Routine 04/11/2020 1:10 PM EST High risk medication use Rheumatoid arthritis involving multiple sites with positive rheumatoid factor COMPREHENSIVE METABOLIC PANEL (NON-FASTING) Routine 04/11/2020 1:10 PM EST High risk medication use Rheumatoid arthritis involving multiple sites with positive rheumatoid factor Other specified diabetes mellitus with other specified complication, 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 documented in this encounter Results * (ABNORMAL) Differential, Automated (04/11/2020 1:10 PM EST) Neutrophils % 73.7 % [facility] Neutr Abs (ANC) 9.27(H) 1.70 - 6.10 x10(3)/ L [facility] Lymphocytes % 18.1 % [facility] Lymphocytes Abs 2.3 0.9 - 3.2 x10(3)/[facility] Monocytes % 4.0 % [facility] Monocyte Abs 0.5 0.3 - 0.9 x10(3)/[facility] Eosinophils % 3.1 % [facility] Eosinophils Abs 0.4 0.0 - 0.4 x10(3)/ L [facility] Basophils % 0.9 % [facility] Basophils Abs 0.1 0.0 - 0.1 x10(3)/ L [facility] Immature Gran % 0.20 % [facility] Comment: Immature granulocytes(IG's)percentage and absolute count will include metamyelocytes, myelocytes, and promyelocytes. Blood smears from CBCs yielding IG's will be scanned manually for concordance. If this scan disagrees with the automated IG or if promyelocytes are noted, a manual differential will be performed. Yanni Gran Abs 0.03 0.00 - 0.04 x10(3)/mc L [facility] Blood specimen (specimen) 04/11/2020 1:10 PM EST 04/11/2020 1:15 PM EST Narrative Resulting Agency Comment Spec In Lab Zak Lee MD HEMATOLOGY ORDERA BLES [facility] [place] [address] * (ABNORMAL) Hemogram (04/11/2020 1:10 PM EST) WBC 12.6(H) 4.0 - 9.5 x10(3)/[facility] RBC 4.31 4.00 - 5.21 x10(6)/[facility] Hemoglobin 14.0 11.7 - 15.5 gm/dL [facility] Hematocrit 41.3 35.7 - 45.8 % [facility] MCV 95.8(H) 82.6 - 94.4 fL [facility] MCH 32.5(H) 27.1 - 32.0 pg [facility] MCHC 33.9 31.7 - 35.0 gm/dL [facility] Platelets 444(H) 145 - 357 x10(3)/[facility] RDWSD 41.3 37.0 - 46.0 [facility] RDWCV 11.9 11.5 - 14.1 % [facility] MPV 9.1 7.6 - 12.9 fL [facility] nRBC % Auto 0.0 % [facility] nRBC Abs Auto 0.000 0.000 - 0.000 x10(3)/[facility] Blood specimen (specimen) 04/11/2020 1:10 PM EST 04/11/2020 1:15 PM EST Narrative Resulting Agency Comment Spec In Lab Zak Lee MD HEMATOLOGY ORDERA BLES Performing Organization Address [facility] Co de Phone Number [facility] [place] [address] * (ABNORMAL) Sedimentation rate (04/11/2020 1:10 PM EST) Sed Rate 55(H) 2 - 37 mm/hr [facility] Comment: Effective May 11, 2019 new capillary photometric technology has resulted in a change in reference ranges. It is recommended that each ESR result be reviewed with its own age appropriate reference range. Blood specimen (specimen) 04/11/2020 1:10 PM EST 04/11/2020 1:15 PM EST Narrative Resulting Agency Comment Spec In Lab Zak Lee MD HEMATOLOGY ORDERA BLES Performing Organization Address [facility] de Phone Number [facility] [address] * (ABNORMAL) Hemoglobin A1c (04/11/2020 1:10 PM EST) [facility] Hemoglobin A1C 7.5(H) 4.3 - 5.6 % [facility] Comment: Reference Range: 4.3 - [...] 1, S67-74 Est Avg Gluc 168 mg/dL [facility] Comment: eAG equivalents for HbA1c [...] into estimated average glucose values. ??Diabetes Care 2008:31(8):7765-6129. Blood specimen (specimen) 04/11/2020 1:10 PM EST 04/11/2020 1:15 PM EST Narrative Resulting Agency Comment Spec In Lab Zak Lee MD CHEMISTRY ORDERAB LES [facility] [address] * (ABNORMAL) Comprehensive metabolic panel (non-fasting) (04/11/2020 1:10 PM EST) Glucose Lvl 312(H) 65 - 199 mg/dL [facility] Comment:Diabetes: >=200 mg/d L plus symptoms BUN 10 8 - 18 mg/dL [facility] Creatinine 0.81 0.70 - 1.20 mg/dL [facility] Sodium 136 135 - 145 mmol/L [facility] Potassium 3.9 3.5 - 5.0 mmol/L [facility] Comment: Please note: ??Patients with WBC >100,000 may have falsely elevated Potassium levels. ??For accurate Potassium quantification in these patients send serum separator tube (gold top) for subsequent determinations. ??Contact the Clinical Chemistry Laboratory if there are any questions. Chloride 99 98 - 107 mmol/L [facility] CO2 21(L) 22 - 31 mmol/L [facility] Anion Gap 16(H) 5 - 15 mmol/L [facility] Calcium 9.7 8.5 - 10.5 mg/dL [facility] Total Protein 8.1(H) 6.1 - 8.0 gm/dL [facility] Albumin 4.6 3.2 - 5.2 gm/dL [facility] AST 12 0 - 30 unit/L [facility] ALT 24 0 - 30 unit/L [facility] Alk Phos 148(H) 35 - 105 unit/L [facility] Total Bilirubin 0.2 0.2 - 1.3 mg/dL [facility] Estimated GFR 92 >=60 mL/min/1. 73 m?? [facility] Comment: The eGFR was calculated using the CKD-EPI equation. As with all creatinine based estimates of kidney function, eGFR values calculated with the CKD-EPI equation are not accurate in patients with acute kidney failure, extremes of body mass or the acutely ill. http://[employer]/[facility] – TALIHINAnkf eGFR 107 >=60 mL/min/1. 73 m?? [facility] Comment: The eGFR was calculated using the CKD-EPI equation. As with all creatinine based estimates of kidney function, eGFR values calculated with the CKD-EPI equation are not accurate in patients with acute kidney failure, extremes of body mass or the acutely ill. http://[employer]/DHnkf Blood specimen (specimen) 04/11/2020 1:10 PM EST 04/11/2020 1:15 PM EST Narrative Resulting Agency Comment Spec In Lab Zak Lee MD CHEMISTRY ORDERAB LES [facility] [address] * CRP, acute inflammation (04/11/2020 1:10 PM EST) CRP 3.0 <=4.9 mg/L [facility] Blood specimen (specimen) 04/11/2020 1:10 PM EST 04/11/2020 1:15 PM EST Narrative Resulting Agency Comment Spec In Lab Zak eLe MD CHEMISTRY ORDERAB LES Performing Organization Address [facility]/ZIP Co de Phone Number [facility] [address] * IgG (04/11/2020 1:10 PM EST) IgG 889 700 - 1,600 mg/dL [facility] Comment: Pediatric Reference Intervals obtained from the [employer] Reference Interval project. http://www.[employer].ca/caliperproject/index.html Blood specimen (specimen) 04/11/2020 1:10 PM EST 04/11/2020 1:15 PM EST Narrative Resulting Agency Comment Spec In Lab Zak Lee MD IMMUNOLOGY ORDERA BLES Performing Organization Address [facility] Co de Phone Number [facility] [address] documented in this encounter Visit Diagnoses Diagnosis High risk medication use Encounter for long-term (current) use of other medications Rheumatoid arthritis involving multiple sites with positive rheumatoid factor Other specified diabetes mellitus with other specified complication, 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
--- OUTSIDE RECORDS SUMMARY | 2023-12-14 02:29 | XMS_ITS | Encounter Summary ---
Author Organization [facility] Address [facility] [place] [address] Care Team Providers Care Seed Collector Name Role Phone Aneta Perez Primary Care Provider [phone] Reason for Referral * Occupational Therapy (Routine) - Closed Specialty Diagnoses / Procedures Referred By Roberto palomares Referred To Contact Occupational Therapy Diagnoses Surgery follow-up Surgery follow-up Procedures Evaluate and Treat Ulises Parry MD [facility] [place] [address] [facility] [address] [place] [address] Referral ID Status Reason Start Date Expiration Date V isits Requested Visits Authorized [id number] Closed Evaluate and Treat 09/06/2020 09/06/2021 30 30 Reason for Visit * Reason Comments Follow Up Surgery Encounter Details Date Type Department Care Team (Late st Contact Info) Description 09/06/2020 8:45 AM EDT Office Visit [place] [address] Ulises Parry MD [facility] [place] [address] Surgery follow-up Social History Tobacco Use Types [...] brush. DO NOT wear any rings, nail swiss or artifical nails. The Same Day Surgery [...] For questions pertaining to your surgical date [phone] For nursing related questions [phone] On weekends, holidays or after office hours: Call and ask the mobile crane operator to page the Plastic Surgery Resident human resources consultant. documented in this encounter Progress Notes * [...] help. I will touch base with her Antique Clock Repairer in regards to her infusions and pre- op/post op planning. Surgical Grid Surgeon: Sohan Duration: 60 min Timeframe: next available Procedure: kat reconstruction/zplasty CPT: 88950,23741 Surgical site: hand Side: left Anesthesia: General [...] surgery documented in this encounter Care Teams Seed Collector Relationship Specialty Start Date End Date Aneta Perez PA [address] [place] [address] PCP - General Family Medicine 10/17/19 documented as of this encounter
--- OUTSIDE RECORDS SUMMARY | 2023-12-14 02:29 | XMS_ITS | Encounter Summary ---
[place] [address] Care Team Providers Care Liability Claims Representative Name Role Phone Aneta Perez Primary Care Provider [phone] Reason for Visit * Auth/Cert Specialty Diagnoses / Procedures Referred By Roberto t Referred To Contact Diagnoses tendon rupture Procedures PRO TRANSPLANT/GRAFT PALM TENDON TRANSFER OR TRANSPLANT TENDON, PALMAR, W/ FREE TENDON GRAFT, EA (WRVU 9.86) Referral ID Status Reason Start Date Expiration Date Visits Re quested Visits Authorized [id number] 1 1 Encounter Details Date Type Department Care Team (Late st Contact Info) Description 12/05/2019 11:12 AM EDT Anesthesia Event [place] [address] Rianna Ramírez DO [facility] [place] [address] Sagar Iqbal MD [facility] [address] Anesthesia Record Procedure Summary Procedure Name Responsible [...] Removal Time: 0812/05/19 1123 by Nelsy Allen, JUDO TEACHER 10/01/20 0808 by Kim Rascon RN Incision [...] Procedure Summary Date: 12/05/19 Room / Location: [address] Anesthesia Start: 1112 Anesthesia Stop: 1239 Procedure: TENOLYSIS, FLEXOR TENDON, PALM AND FINGER EACH (WRVU 9.75) (Left Hand) Diagnosis: Tendon rupture of wrist, left, initial encounter (tendon rupture) Surgeon: Ulises Parry MD Responsible Provider: Rianna Ramírez DO Anesthesia Type: general ASA Status: 2 All Anesthesia Providers: Anesthesiologist: Rianna Ramírez DO JUDO TEACHER: Nelsy Allen CRNA Vitals Value Taken Time BP 141/66 12/05/2019 12:48 PM Temp Pulse 78 12/05/2019 12:48 PM Resp 17 12/05/2019 12:48 PM SpO2 100 % 12/05/2019 12:48 PM Pain Level 4 12/05/2019 12:48 PM Patient Location: PACU/[facility] Level of Consciousness: Awake and Alert [...] risks discussed with patient. Plan discussed with JUDO TEACHER. PAT Clinic Note documented in this encounter [...] mL/hr documented in this encounter Care Teams Liability Claims Representative Relationship Specialty Start Date End Date Aneta Perez PA [address] [place] [address] PCP - General Family Medicine 10/17/19 documented as of this encounter
--- OUTSIDE RECORDS SUMMARY | 2023-12-14 02:29 | XMS_ITS | Encounter Summary ---
Author Organization [facility] [address] Care Team Providers Care Certified Ethical Hacker Name Role Phone Aneta Perez Primary Care Provider [phone] Reason for Visit * Reason Onset Date Comments Questions 05/16/2020 Encounter Details Date Type Department Care Team ([facility] st Contact Info) Description 05/16/2020 Telephone [place] [phone] Momo Knight, RN Questions Social History Tobacco [...] - 05/16/2020 2:25 PM EST Merline from [facility] calls. Patient receives rtx day 1 and day 15. Merline asks if patient to be scheduled 6 months from day 1 or 6 months from day 15? documented in this encounter Plan of Treatment Not on file documented as of this encounter Visit Diagnoses Not on filedocumented in this encounter Care Teams Certified Ethical Hacker Relationship Specialty Start Date End Date Aneta Perez PA [address] [place] [address] PCP - General Family Medicine 10/17/19 documented as of this encounter
--- OUTSIDE RECORDS SUMMARY | 2023-12-14 02:29 | XMS_ITS | Encounter Summary ---
Author Organization [facility] [place] [address] Care Team Providers Care Graphic Arts Instructor Name Role Phone Aneta Perez Primary Care Provider [phone] Reason for Referral * Occupational Therapy (JENS) - Specialty Diagnoses / Procedures Referred By Roberto palomares Referred To Contact Occupational Therapy Diagnoses Tendon dysfunction Ulises Steel MD [facility] [place] [address] Tucker Wiggins, OT [facility] PHYSICAL MEDICINE & [place] [address] Referral ID Status Reason Start Date Expiration Date V isits Requested Visits Authorized [id number] Evaluate and Treat 12/05/2019 12/04/2020 12 12 Reason for Visit * Auth/Cert Specialty Diagnoses / Procedures Referred By Roberto palomares Referred To Contact Diagnoses tendon rupture Procedures PRO TRANSPLANT/GRAFT PALM TENDON TRANSFER OR TRANSPLANT TENDON, PALMAR, W/ FREE TENDON GRAFT, EA (WRVU 9.86) Referral ID Status Reason Start Date Expiration Date Visits Re quested Visits Authorized [id number] 1 1 Encounter Details Date Type Department Care Team (Latest Contact Info) Description 12/05/2019 8:39 AM EDT - 12/05/2019 1:21 PM EDT Hospital Encounter [place] [address] Ulises Parry MD [facility] [place] [address] Tendon rupture of wrist, left, initial encounter; [...] office hours: Thursday - Thursday 8am-5pm call [phone]. On weekends or after hours call [phone] and ask the resaw machine operator to page the plastic surgery resident manufacturing plant controller. PAIN MEDICATION: You were given a prescription [...] Thursday 8 am to 5 pm): Call [phone]. On weekends or after hours: Call [phone] and ask the resaw machine operator to speak to the Plastic Surgery Resident on-call. FOLLOW-UP APPOINTMENTS: You follow-up appointment has been scheduled. You should have an appointment in on 12/15/19 with in Plastic Surgery clinic for a postoperative follow- up. Please call [phone] if you have not received a phone [...] Center 12/15/2019 1:00 PM Ulises Parry MD [facility] [address] [place] [address] 12/15/2019 2:45 PM Tucker Wiggins, MARIA L [facility] 04/03/2020 11:30 AM Zak Lee MD [facility] RHEUM [facility] documented in this encounter Medications at Time [...] again, temperature will be taken, patient and caregiver/front loader residential driver will be given a mask to [...] file Gets together: Not on file Attends scientology service: Not on file Active member of [...] Parry MD - 12/05/2019 1:21 PM EDT [facility] Operative Note Patient Name: Liset Hager : [id number] MR#: [id number] Case Date: 12/05/2019 Surgeon: Surgeon(s) and Role: [...] Operative Note Patient Name: Liset Hager : [id number] MR#: [id number] Case Date: 12/05/2019 Surgeon: Surgeon(s) and Role: [...] Center 12/15/2019 1:00 PM Ulises Parry MD [facility] [address] [place] [address] 12/15/2019 2:45 PM Tucker Wiggins OT [facility] Re[facility] 04/03/2020 11:30 AM Zak Lee MD [facility] RHEUM [facility] documented in this encounter Plan of Treatment [...] Tenolysis Flex Tendon, Palm & Finger, Ea ([id number]) 12/05/2019 11:12 AM EDT Tendon rupture of [...] MD) documented in this encounter Care Teams Graphic Arts Instructor Relationship Specialty Start Date End Date Aneta Perez PA [address] [place] [address] PCP - General Family Medicine 10/17/19 documented as of this encounter
--- OUTSIDE RECORDS SUMMARY | 2023-12-14 02:29 | XMS_ITS | Encounter Summary ---
[place] [address] Care Team Providers Care Gasoline Engine Assembler Name Role Phone Aneta Perez Primary Care Provider [phone] Encounter Details Date Type Department Care Team ([facility] st Contact Info) Description 01/06/2020 Tele[place] [phone] Do Esposito Social History Tobacco Use Types [...] her OT provider (Mena Gunn) over at [facility]. To begin E-Stem treatment. I called patient to alert her. documented in this encounter Plan of Treatment Not on file documented as of this encounter Visit Diagnoses Not on filedocumented in this encounter Care Teams Gasoline Engine Assembler Relationship Specialty Start Date End Date Aneta Perez PA [address] [place] [address] PCP - General Family Medicine 10/17/19 documented as of this encounter
--- OUTSIDE RECORDS SUMMARY | 2023-12-14 02:29 | XMS_ITS | Encounter Summary ---
Author Organization [facility] Address [facility] [place] [address] Care Team Providers Care Retail Administrative Assistant Name Role Phone Aneta Perez Primary Care Provider [phone] Reason for Visit * Reason Comments Follow Up Surgery s/p tendon transfer dos 12/05/19 Encounter Details Date Type Department Care Team (Late st Contact Info) Description 12/15/2019 1:00 PM EDT Office Visit [place] [address] Ulises Parry MD [facility] [place] [address] Follow-up exam Social History Tobacco Use Types [...] examination documented in this encounter Care Teams Retail Administrative Assistant Relationship Specialty Start Date End Date Aneta Perez PA [address] [place], [place] [id number] PCP - General Family Medicine 10/17/19 documented as of this encounter
--- OUTSIDE RECORDS SUMMARY | 2023-12-14 02:29 | XMS_ITS | Encounter Summary ---
Author Organization [facility] Address [facility] [place] [address] Care Team Providers Care Animal Attendants And Trainers Name Role Phone Aneta Perez Primary Care Provider [phone] Reason for Visit * Occupational Therapy (Routine) - Specialty Diagnoses / Procedures Referred By Roberto palomares Referred To Contact Occupational Therapy Diagnoses Tendon rupture of wrist, left, initial encounter No surgery date Ulises Parry MD [facility] [place] [address] [facility] [address] [place] [address] Referral ID Status Reason Start Date Expiration Date V isits Requested Visits Authorized [id number] Evaluate and Treat 02/16/2020 02/15/2021 12 12 Encounter Details Date Type Department Care Team (Late st Contact Info) Description 04/04/2020 9:00 AM EST Office Visit Occupational Therapy at [facility] [address] [place] [address] Liss Armstrong OT [facility] PHYSICAL MEDICINE & [place] [address] Tendon dysfunction Social History Tobacco Use Types [...] 1. Tendon dysfunction 2. 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 Manage transportation needs [...] volar forearm based resting splint for her olxjs-bxvq-fxpk fingers in MCP flexion of 45 degrees and leaving her IP's free for active movement She is also released for one-handed duty to work as an TOOL CRIB CLERK [employer] - Vwadu-Rzgl-Xfwekk Orthotic, Rigid, WO Jts, Custom Fit & Adj ([id number]) Educated patient in etiology and biomechanics as related to patient's symptoms Referral provided for her to initiate OT locally/ [facility]. Has good relationship with her OT [...] bursa documented in this encounter Care Teams Animal Attendants And Trainers Relationship Specialty Start Date End Date Aneta Perez PA [address] [place] [address] PCP - General Family Medicine 10/17/19 documented as of this encounter
--- OUTSIDE RECORDS SUMMARY | 2023-12-14 02:30 | XMS_ITS | Encounter Summary ---
Author Organization [facility] [place] [address] Care Team Providers Care Protection Chief Industrial Plant Name Role Phone Yanique Mandujano APRN Primary Care Provider [phone] Encounter Details Date Type Department Care Team (Late st Contact Info) Description 07/18/2016 [place] [address] Nemo Quiñonez LPN Social History Tobacco Use [...] on filedocumented in this encounter Care Teams Protection Chief Industrial Plant Relationship Specialty Start Date End Date Yanique Mandujano, MARIAH [address] [place] [phone] PCP - General 04/23/10 10/16/19 documented as of this encounter
--- OUTSIDE RECORDS SUMMARY | 2023-12-14 02:30 | XMS_ITS | Encounter Summary ---
Author Organization [facility] Address [facility] [place] [address] Care Team Providers Care Agriculture Professor Name Role Phone Yanique Mandujano MAIRAH Primary Care Provider [phone] Reason for Referral * High Dollar Medication (Routine) - Closed Specialty Diagnoses / Procedures Referred By Contac t Referred To Contact Med Infusion Diagnoses Rheumatoid arthritis, involving unspecified site, unspecified rheumatoid factor presence Zak Lee MD [facility] [place] [address] [facility] Med Infusion [address] [place] [address] Referral ID Status Reason Start Date Expiration Date V isits Requested Visits Authorized [id number] Closed Consult, Test & Treat 12/16/2018 12/16/2019 2 2 Encounter Details Date Type Department Care Team (Late st Contact Info) Description 12/16/2018 Orders [place] [address] Zak Lee MD [facility] [place] [address] Rheumatoid arthritis, involving unspecified site, [...] presence documented in this encounter Care Teams Agriculture Professor Relationship Specialty Start Date End Date Yanique Mandujano APRN [address] [place] [phone] PCP - General 04/23/10 10/16/19 documented as of this encounter
--- OUTSIDE RECORDS SUMMARY | 2023-12-14 02:30 | XMS_ITS | Encounter Summary ---
Author Organization [facility] Address [facility] [place] [address] Care Team Providers Care Screening Tech Name Role Phone Yanique Mandujano APRN Primary Care Provider [phone] Reason for Referral * High Dollar Medication (Routine) - Specialty Diagnoses / Procedures Referred By Contac t Referred To Contact Med Infusion Diagnoses Rheumatoid arthritis involving multiple sites with positive rheumatoid factor Procedures TC RITUXIMAB, 10MG INJECTION RITUXAN Zak Lee MD [facility] [place] [address] [facility]fusion [address] [place] [address] Referral ID Status Reason Start Date Expiration Date V isits Requested Visits Authorized [id number] Consult, Test & Treat 12/08/2018 12/30/2018 2 2 Encounter Details Date Type Department Care Team (Late st Contact Info) Description 12/08/2018 Orders [place] [address] Zak Lee MD [facility] [place] [address] Rheumatoid arthritis involving multiple sites [...] factor documented in this encounter Care Teams Screening Tech Relationship Specialty Start Date End Date Yanique Mandujano APRN [address] [place] [address] PCP - General 04/23/10 10/16/19 documented as of this encounter
--- OUTSIDE RECORDS SUMMARY | 2023-12-14 02:30 | XMS_ITS | Encounter Summary ---
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 08/28/2020 10:59 [facility] Attestation By the signature below, the attending physician certifies that they have 1) personally conducted a gross and/or microscopic examination of the described specimen(s), and/or personally interpreted the results of laboratory testing of the described specimen(s), and 2) personally rendered or confirmed the above diagnosis. 08/28/2020 10:59 [facility] at 1059 Clinical History Hx duodenal ulcer, hiatal hernia 08/28/2020 10:59 [facility] Gross Description A. Received [...] D1Noe Zuñiga 08/25/2020 8:14 08/28/2020 10:59 EDT [facility] Performing Lab [facility] 10:59 EDT [facility] Scanned Images 08/28/2020 10:59 EDT [facility] Tissue ENTIRE ESOPHAGO-JOSE JUANCARLOS MUCOSAL JUNCTION / Unknown 08/24/2020 7:39 EDT 08/24/2020 16:27 EDT Tissue specimen (specimen) PYLORIC ANTRUM STRUCTURE / Unknown 08/24/2020 7:39 EDT 08/24/2020 16:27 EDT Tissue specimen (specimen) STOMACH STRUCTURE / Unknown 08/24/2020 7:39 EDT 08/24/2020 16:27 EDT Tissue specimen (specimen) CARDIOESOPHAGEAL JUNCTION STRUCTURE / Unknown 08/24/2020 7:39 EDT 08/24/2020 16:27 EDT Micaela Abraham DO PATHOLOGY ORDERABLES [facility] [address] [place] [address] documented in this encounter Visit Diagnoses Diagnosis [facility] (current) use of non-steroidal anti-inflammatories (nsaid) Personal [...] esophagus documented in this encounter Care Teams Battery Container Finishing Hand Relationship Specialty Start Date End Date Aneta Perez PA [address] [place] [address] PCP - General 11/12/18 documented as of this encounter
--- OUTSIDE RECORDS SUMMARY | 2023-12-14 02:30 | XMS_ITS | Encounter Summary ---
Author Organization [facility] [place] [address] Care Team Providers Care Manager Bar Name Role Phone Yanique Mandujano MARIAH Primary Care Provider [phone] Reason for Visit * Reason Onset Date Comments Follow-up 12/09/2018 Encounter Details Date Type Department Care Team (Late st Contact Info) Description 12/09/2018 Telephone Rheumatology at [facility] [place] [address] Juan Manuel Sapp RN Follow-up Social History [...] Call received from Karen Jacome APRN at [facility] asking if there are any contraindications for [...] on filedocumented in this encounter Care Teams Manager Bar Relationship Specialty Start Date End Date Yanique Madnujano APRN [address] [place] [phone] PCP - General 04/23/10 10/16/19 documented as of this encounter
--- OUTSIDE RECORDS SUMMARY | 2023-12-14 02:30 | XMS_ITS | Encounter Summary ---
Author Organization [facility] Address [facility] [place] [address] Care Team Providers Care Rod Pointer Name Role Phone Yanique Mandujano APRN Primary Care Provider [phone] Reason for Visit * Reason Comments IV Medication * High Dollar Medication (Routine) - Specialty Diagnoses / Procedures Referred By Contac t Referred To Contact Med Infusion Diagnoses Rheumatoid arthritis involving multiple sites with positive rheumatoid factor Procedures TC RITUXIMAB, 10MG INJECTION RITUXAN Zak Lee MD [facility] [place] [address] [facility] Med Infusion [address] [place] [phone] Referral ID Status Reason Start Date Expiration Date V isits Requested Visits Authorized [id number] Consult, Test & Treat 12/08/2018 12/30/2018 2 2 Encounter Details Date Type Department Care Team (Latest Contact Info) Description 12/29/2018 7:59 AM EDT - 12/29/2018 11:59 PM EDT Hospital En[place] [address] Rheumatoid arthritis, involving unspecified site, [...] Take 1 tablet by mouth daily. 05/13/2018 [employer] ULTRA BLUE TEST STRIP Strip as needed. 01/25/2018 [employer] ULTRA2 Kit as needed. 01/25/2018 lamoTRIgine (LAMICTAL) [...] against actual dose given at bedside by [facility] Rituxan 1000 mg IV [...] mg documented in this encounter Care Teams Rod Pointer Relationship Specialty Start Date End Date Yanique Mandujano APRN [address] [place] [phone] PCP - General 04/23/10 10/16/19 documented as of this encounter
--- OUTSIDE RECORDS SUMMARY | 2023-12-14 02:30 | XMS_ITS | Encounter Summary ---
[place] [address] Care Team Providers Care Headwaiter/Headwaitress Name Role Phone Yanique Mandujano APRN Primary Care Provider [phone] Encounter Details Date Type Department Care Team (Late st Contact Info) Description 09/07/2018 Ancillary Procedure [place] [address] Yanique Mandujano APRN [address] [place] [phone] Social History Tobacco Use Types Packs/Day Years [...] MR Wrist (09/07/2018 12:00 AM EDT) Narrative [facility] - 10/05/2019 2:41 PM EDT This exam is auto-finalizing. It's purpose is for storage only. Yanique Mandujano APRN IMG FILM LIBRARY O RDERABLES [place], [place] documented in this encounter Visit Diagnoses Not on filedocumented in this encounter Care Teams Headwaiter/Headwaitress Relationship Specialty Start Date End Date Yanique Mandujano, CHEMISTS [address] [place] [address] PCP - General 04/23/10 10/16/19 documented as of this encounter
--- OUTSIDE RECORDS SUMMARY | 2023-12-14 02:30 | XMS_ITS | Encounter Summary ---
Author Organization [facility] [place] [address] Care Team Providers Care Press Tender Name Role Phone Yanique Mandujano APRN Primary Care Provider [phone] Reason for Visit * Reason Onset Date Comments Other 06/10/2018 Encounter Details Date Type Department Care Team (Late st Contact Info) Description 06/10/2018 [place] [address] Momo Knight RN Other Social History Tobacco [...] EST Patient was unable to get into [facility] for labs. She has since reset [...] on filedocumented in this encounter Care Teams Press Tender Relationship Specialty Start Date End Date Yanique Mandujano APRN [address] [place] [address] PCP - General 04/23/10 10/16/19 documented as of this encounter
--- OUTSIDE RECORDS SUMMARY | 2023-12-14 02:30 | XMS_ITS | Encounter Summary ---
Author Organization [facility] Address [address] [place] [address] Care Team Providers Care Building Trades Instructor Name Role Phone Aneta Perez Primary Care Provider [phone] Encounter Details Date Type Department Care Team (Late st Contact Info) Description 02/10/2020 Lab Requisition [facility] Pathology & Laboratory Medicine - [facility] [address] [place] [address] Outr Resulting Lab, Provider Social History Tobacco [...] rt-PCR Result NEGATIVE Negative 02/11/2020 15:36 EDT [facility] Comment: 2019-novel Coronavirus (2019-nCoV) [...] in accordance with CLIA regulations, [employer] [place] [employer] (CAP) guidelines (Aug 18, 2019), and FDA guidance (Jul 30, 2019). This test is only for use under the Food and Drug Administration's Emergency Use Authorization. Swab ENTIRE NASOPHARYNX / Unknown 02/10/2020 10:58 EDT 02/10/2020 16:13 EDT Provider Outr Resulting Lab MICROBIOLOGY - GENERAL ORDERABLES [facility] [place], [place] * COVID-19 TESTING (02/10/2020 10:58 EDT) COVID-19 rt-PCR Result NEGATIVE Negative 02/11/2020 18:09 EDT [facility] Comment: 2019-novel Coronavirus (2019-nCoV) not detected [...] in accordance with CLIA regulations, College of [place] [employer] (CAP) guidelines (Aug 18, 2019), and FDA guidance (Jul 30, 2019). This test is only for use under the Food and Drug Administration's Emergency Use Authorization. Performing Lab [facility] 02/11/2020 18:09 EDT [facility] Swab 02/10/2020 10:5 8 EDT 02/10/2020 16:13 EDT Provider Outr Resulting Lab MICROBIOLOGY - GENERAL ORDERABLES [facility] [address] [place], [place] [address] [place] [address] LABORATORY [place], [place] documented in this encounter Visit Diagnoses Not on filedocumented in this encounter Care Teams Building Trades Instructor Relationship Specialty Start Date End Date Aneta Perez PA [address] [place] [address] PCP - General 11/12/18 documented as of this encounter
--- OUTSIDE RECORDS SUMMARY | 2023-12-14 02:30 | XMS_ITS | Encounter Summary ---
Author Organization [facility] Address [facility] [place] [address] Care Team Providers Care Hydrometer Finisher Name Role Phone Yanique Mandujano APRN Primary Care Provider [phone] Encounter Details Date Type Department Care Team (Late st Contact Info) Description 06/02/2018 11:40 AM EST - 06/02/2018 11:59 PM EST Hospital Encounter XRay at [address] [place] [address] Zak Lee MD [facility] [place] [address] Rheumatoid arthritis involving multiple sites with positive [...] factor documented in this encounter Care Teams Hydrometer Finisher Relationship Specialty Start Date End Date Yanique Mandujano APRN [address] [place] [phone] PCP - General 04/23/10 10/16/19 documented as of this encounter
--- OUTSIDE RECORDS SUMMARY | 2023-12-14 02:30 | XMS_ITS | Encounter Summary ---
Author Organization [facility] Address [address] [place] [address] Care Team Providers Care It Web Development Consultant Name Role Phone Yanique Mandujano APRN Primary Care Provider [phone] Encounter Details Date Type Department Care Team (Late st Contact Info) Description 11/09/2018 Results Only [facility] [phone] Chriss Delgado MD [address] [place] [phone] Social History Tobacco Use Types Packs/Day [...] ? LEANA MANDUJANO ? Accession #: ? [id number] ? : ? 1980 (Age: 38) ??F [...] soft tissue. No masses or lesions identified. Toll Testboard Worker sections are submitted in 1. BRODERICK Dill (ASCP) 11/11/2018 7:57 AM End of Report [facility] 11/09/2018 19:1 6 EDT 11/10/2018 19:16 EDT Chriss Delgado MD PATHOLOGY ORDERABLES [facility] [address] [place] [address] documented in this encounter Visit Diagnoses Not on filedocumented in this encounter Care Teams It Web Development Consultant Relationship Specialty Start Date End Date Yanique Mandujano APRN PCP - General 04/04/15 11/11/18 documented as of this encounter
--- OUTSIDE RECORDS SUMMARY | 2023-12-14 02:30 | XMS_ITS | Encounter Summary ---
Author Organization [facility] [place] [address] Care Team Providers Care Benefits Representative Name Role Phone Yanique Mandujano APRN Primary Care Provider [phone]- [phone] Reason for Referral * High Dollar Medication (Routine) - Closed Specialty Diagnoses / Procedures Referred By Contac t Referred To Contact Med Infusion Diagnoses Rheumatoid arthritis involving multiple sites with positive rheumatoid factor Procedures TC RITUXIMAB, 10MG INJECTION Zak Lee MD [facility] [place] [address] [facility] Med Infusion [address] [place] [phone] Referral ID Status Reason Start Date Expiration Date V isits Requested Visits Authorized [id number] Closed Consult, Test & Treat 06/02/2018 06/02/2019 2 2 Reason for Visit * Consultation (Routine) - Specialty Diagnoses / Procedures Referred By Contac t Referred To Contact Rheumatology Diagnoses RA Yanique Mandujano, METAL CUT OFF SAW TENDER [address] [place] [address] [facility] [address] [place] [phone] Referral ID Status Reason Start Date Expiration Date V isits Requested Visits Authorized [id number] Consult, Test & Treat [facility] 02/04/2018 02/04/2019 1 1 Encounter Details Date Type Department Care Team (Late st Contact Info) Description 06/02/2018 10:00 AM EST Office [place] [address] Zak Lee MD [facility] [address] Rheumatoid arthritis involving multiple sites with positive [...] Read about the medicine on the web ([email or web address]) Continue Humira for now. Follow up in 6 months. Call if problems or concerns. documented in this encounter Progress Notes * Zak Lee MD - 06/02/2018 10:00 AM EST Rheumatology Clinic: Dr. Lee 06/02/2018 [id number] Fabian Mandujano is a 37 y.o. female patient whom we see in consultation for Yanique Mandujano APRN in evaluation of rheumatoid arthritis. She was a woman who was diagnosed with rheumatoid arthritisabout [address] Morgan in [place]. She was tried on prednisone, but that [...] Morgan is giving up her practice in [place]. The patient has had no significant infections [...] weak in her hands. 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 She is having [...] problems. 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 Unfortunately, she smokes a pack of cigarettes [...] delay, hopefully we can get them done [facility]. Today we will go ahead and check [...] Read about the medicine on the web ([employer]) Continue Humira for now. Follow up in [...] 12:05 PM EST) Neutrophils % 63.5 % [facility] Neutr Abs (ANC) 8.46(H) 1.70 - 6.10 x10(3)/[facility] Lymphocytes % 25.5 % [facility] Lymphocytes Abs 3.4(H) 0.9 - 3.2 x10(3)/[facility] Monocytes % 4.7 % [facility] Monocyte Abs 0.6 0.3 - 0.9 x10(3)/[facility] Eosinophils % 4.9 % [facility] Eosinophils Abs 0.7(H) 0.0 - 0.4 x10(3)/[facility] Basophils % 1.1 % [facility] Basophils Abs 0.2(H) 0.0 - 0.1 x10(3)/[facility] Immature Gran % 0.30 % [facility] Comment: Immature granulocytes(IG's)percentage and absolute count will include metamyelocytes, myelocytes, and promyelocytes. Blood smears from CBCs yielding IG's will be scanned manually for concordance. If this scan disagrees with the automated IG or if promyelocytes are noted, a manual differential will be performed. Yanni Gran Abs 0.04 0.00 - 0.04 x10(3)/[facility] Blood specimen (specimen) 06/02/2018 12:05 PM EST 06/02/2018 12:09 PM EST Narrative Resulting Agency Comment Spec In Lab Zak Lee MD HEMATOLOGY ORDERA BLES [facility] [place] [address] * (ABNORMAL) Hemogram (06/02/2018 12:05 PM EST) WBC 13.4(H) 4.0 - 9.5 x10(3)/[facility] LABORATORY RBC 4.73 4.00 - 5.21 x10(6)/[facility] Hemoglobin 14.8 11.7 - 15.5 gm/dL [facility] Hematocrit 44.1 35.7 - 45.8 % [facility] MCV 93.2 82.6 - 94.[address] [facility] MCH 31.3 27.1 - 32.[address] [facility] MCHC 33.6 31.7 - 35.0 gm/dL [facility] Platelets 427(H) 145 - 357 x10(3)/[facility] LABORATORY RDWSD 40.5 37.0 - 46.[address] [facility] RDWCV 11.6 11.5 - 14.1 % [facility] MPV 9.1 7.6 - 12.[address] [facility] nRBC % Auto 0.0 % [facility] nRBC Abs Auto 0.000 0.000 - 0.000 x10(3)/[facility] Blood specimen (specimen) 06/02/2018 12:05 PM EST 06/02/2018 12:09 PM EST Narrative Resulting Agency Comment Spec In Lab Zak Lee MD HEMATOLOGY ORDERA BLES Performing Organization Address City/[facility]/ZIP Co de Phone Number [facility] [place] [address] * Hepatitis B Surface Antigen (06/02/2018 12:05 PM EST) HepB Surface Ag Negative Negative [facility] Blood specimen (specimen) 06/02/2018 12:05 PM EST 06/02/2018 12:09 PM EST Narrative Resulting Agency Comment Spec In Lab Zak Lee MD CHEMISTRY ORDERAB LES Performing Organization Address City/[facility]/ZIP Co de Phone Number [facility] [place] [address] * Hepatitis B Surface Antibody (06/02/2018 12:05 PM EST) HepB Surface Ab Quant 641.9 IU/L [facility] Comment: HepB Surface Ab Quant: Unvaccinated: < 8.5 IU/L Vaccinated: > 11.5 IU/L HepB Surface Ab Positive [facility] Comment: Patient is considered to be immune to HBV infection. Expected Results: Vaccinated: Positive Unvaccinated: Negative Blood specimen (specimen) 06/02/2018 12:05 PM EST 06/02/2018 12:09 PM EST Narrative Resulting Agency Comment Spec In Lab Zak Lee MD IMMUNOLOGY ORDERA BLES Performing Organization Address City/[facility]/ZIP Co de Phone Number [facility] [place] [address] * Hepatitis B Core Antibody, Total (06/02/2018 12:05 PM EST) Pathologist [facility] Hep B Core Ab Negative Negative [facility] Blood specimen (specimen) 06/02/2018 12:05 PM EST 06/02/2018 12:09 PM EST Narrative Resulting Agency Comment Spec In Lab Zak Lee MD CHEMISTRY ORDERAB LES Performing Organization Address City/[facility]/ZIP Co de Phone Number [facility] [place] [address] * QuantiFERON-TB Gold (06/02/2018 12:05 PM EST) QFT Nil 0.020 IU/mL [facility] QFT TB Ag1-Nil 0.020 IU/mL [facility] QFT TB Ag2-Nil 0.010 IU/mL [facility] QFT Mitogen-Nil >10.000 IU/mL [facility] Quantiferon TB Negative Negative [facility] Quantiferon TB Interp M. tuberculosis [...] affect immune function, or other immunological factors. [facility] Comment: The performance of the [...] Lab Zak Lee MD CHEMISTRY ORDERAB LES [facility] [place] [address] * (ABNORMAL) Cyclic Citrullinated Peptide (06/02/2018 12:05 PM EST) Anti-Cyc Cit Peptide 123.2(H) <=4.9 unit/mL [facility] Comment: An updated CCP assay reagent was implemented 4/13/17. Please note the modified reference interval. Blood specimen (specimen) 06/02/2018 12:05 PM EST 06/02/2018 12:09 PM EST Narrative Resulting Agency Comment Spec In Lab Zak Lee MD CHEMISTRY ORDERAB LES Performing Organization Address [facility] Co de Phone Number [facility] [place] [address] * (ABNORMAL) Rheumatoid factor, quant (06/02/2018 12:05 PM EST) RF 165(H) <=14 IU/mL [facility] Blood specimen (specimen) 06/02/2018 12:05 PM EST 06/02/2018 12:09 PM EST Narrative Resulting Agency Comment Spec In Lab Zak Lee MD IMMUNOLOGY ORDERA BLES Performing Organization Address [facility] Co de Phone Number [facility] [place] [address] * CRP, acute inflammation (06/02/2018 12:05 PM EST) CRP 3.0 <=4.9 mg/L [facility] Blood specimen (specimen) 06/02/2018 12:05 PM EST 06/02/2018 12:09 PM EST Narrative Resulting Agency Comment Spec In Lab Zak Lee MD CHEMISTRY ORDERAB LES Performing Organization Address [facility] Co de Phone Number [facility] [place] [address] * Sedimentation rate (06/02/2018 12:05 PM EST) Sed Rate 18 0 - 20 mm/hr [facility] Blood specimen (specimen) 06/02/2018 12:05 PM EST 06/02/2018 12:09 PM EST Narrative Resulting Agency Comment Spec In Lab Zak Lee MD HEMATOLOGY ORDERA BLES [facility] [place] [address] * (ABNORMAL) Comprehensive metabolic panel (non-fasting) (06/02/2018 12:05 PM EST) Glucose Lvl 94 65 - 199 mg/dL [facility] Comment:Diabetes: >=200 mg/d L plus symptoms BUN 6(L) 8 - 18 mg/dL [facility] Creatinine 0.76 0.70 - 1.20 mg/dL [facility] Sodium 136 135 - 145 mmol/L [facility] Potassium 4.3 3.5 - 5.0 mmol/L [facility] Comment: Please note: ??Patients with WBC >100,000 may have falsely elevated Potassium levels. ??For accurate Potassium quantification in these patients send serum separator tube (gold top) for subsequent determinations. ??Contact the Clinical Chemistry Laboratory if there are any questions. Chloride 97(L) 98 - 107 mmol/L [facility] CO2 23 22 - 31 mmol/L [facility] Anion Gap 16(H) 5 - 15 mmol/L [facility] Calcium 9.4 8.5 - 10.5 mg/dL [facility] Total Protein 8.3(H) 6.1 - 8.0 gm/dL [facility] Albumin 4.2 3.2 - 5.2 gm/dL [facility] AST 14 0 - 30 unit/L [facility] ALT 16 0 - 30 unit/L [facility] Alk Phos 154(H) 40 - 104 unit/L [facility] Total Bilirubin 0.3 0.2 - 1.3 mg/dL [facility] Estimated GFR 101 >=60 mL/min/1. 73 m?? [facility] Comment: The eGFR was calculated using the CKD-EPI equation. As with all creatinine based estimates of kidney function, eGFR values calculated with the CKD-EPI equation are not accurate in patients with acute kidney failure, extremes of body mass or the acutely ill. [email or web address] eGFR 117 >=60 mL/min/1. 73 m?? [facility] Comment: The eGFR was calculated using the CKD-EPI equation. As with all creatinine based estimates of kidney function, eGFR values calculated with the CKD-EPI equation are not accurate in patients with acute kidney failure, extremes of body mass or the acutely ill. [email or web address] Blood specimen (specimen) 06/02/2018 12:05 PM EST 06/02/2018 12:09 PM EST Narrative Resulting Agency Comment Spec In Lab Zak Lee MD CHEMISTRY ORDERAB LES [facility] [place] [address] * XR Hands Min 3 views Bilat [...] factor documented in this encounter Care Teams Benefits Representative Relationship Specialty Start Date End Date Yanique Mandujano APRN [address] [place] [phone] PCP - General 04/23/10 10/16/19 documented as of this encounter
--- OUTSIDE RECORDS SUMMARY | 2023-12-14 02:30 | XMS_ITS | Encounter Summary ---
Author Organization [facility] [place] [address] Care Team Providers Care Stacker Straightener Name Role Phone Yanique Mandujano APRN Primary Care Provider +- [phone] Encounter Details Date Type Department Care Team (Late st Contact Info) Description 12/08/2018 Ancillary Procedure [place] [address] Yanique Mandujano APRN [address] [place] [phone] Social History Tobacco Use Types Packs/Day Years [...] DX Hand (12/08/2018 12:00 AM EDT) Narrative [facility] - 10/05/2019 2:40 PM EDT This exam is auto-finalizing. It's purpose is for storage only. Yanique Mandujano APRN IMG FILM LIBRARY O RDERABLES [place], [place] documented in this encounter Visit Diagnoses Not on filedocumented in this encounter Care Teams Stacker Straightener Relationship Specialty Start Date End Date Yanique Mandujano, DEGREASER [address] [place] [address] PCP - General 04/23/10 10/16/19 documented as of this encounter
--- OUTSIDE RECORDS SUMMARY | 2023-12-14 02:30 | XMS_ITS | Encounter Summary ---
Author Organization [facility] [place] [address] Care Team Providers Care Grey Roll Worker Name Role Phone Yanique Mandujano MARIAH Primary Care Provider [phone]- [phone] Reason for Visit * High Dollar Medication (Routine) - Closed Specialty Diagnoses / Procedures Referred By Contac t Referred To Contact Med Infusion Diagnoses Rheumatoid arthritis involving multiple sites with positive rheumatoid factor Procedures TC RITUXIMAB, 10MG INJECTION Zak Lee MD [facility] [place] [address] [facility] Med Infusion [address] [place] [phone] Referral ID Status Reason Start Date Expiration Date V isits Requested Visits Authorized [id number] Closed Consult, Test & Treat 06/02/2018 06/02/2019 2 2 Encounter Details Date Type Department Care Team (Latest Contact Info) Description 06/16/2018 8:30 AM EST - 06/16/2018 11:59 PM EST Hospital Encounter [place] [address] Rheumatoid arthritis involving multiple sites [...] Take 1 tablet by mouth daily. 05/13/2018 GuardiCoreTOUCH ULTRA BLUE TEST STRIP Strip as needed. 01/25/2018 UltracellUCH ULTRA2 Kit as needed. 01/25/2018 lamoTRIgine (LAMICTAL) [...] mLs documented in this encounter Care Teams Grey Roll Worker Relationship Specialty Start Date End Date Yanique Mandujano APRN [address] [place] [phone] PCP - General 04/23/10 10/16/19 documented as of this encounter
--- OUTSIDE RECORDS SUMMARY | 2023-12-14 02:30 | XMS_ITS | Encounter Summary ---
Author [place] [address] Care Team Providers Care Machine Inspector Name Role Phone Yanique Mandujano APRN Primary Care Provider +1- [phone] Encounter Details Date Type Department Care Team (Late st Contact Info) Description 06/06/2019 Specialty [place] [phone] Miguel Parra Social History Tobacco Use Types [...] on filedocumented in this encounter Care Teams Machine Inspector Relationship Specialty Start Date End Date Yanique Mandujano APRN [address] [place] [phone] PCP - General 04/23/10 10/16/19 documented as of this encounter
--- OUTSIDE RECORDS SUMMARY | 2023-12-14 02:30 | XMS_ITS | Encounter Summary ---
Author Organization [facility] Address [address] [place] [address] Care Team Providers Care Supervisor Fine Grading Name Role Phone Aneta Perez Primary Care Provider [phone] Encounter Details Date Type Department Care Team (Late st Contact Info) Description 12/26/2022 Lab Requisition [facility] Pathology & Laboratory Medicine - [facility] [address] [place] [address] Outr Resulting Lab, Provider Social History Tobacco [...] 6 - 24 % 12/29/2022 15:44 EDT [facility] CD20 <1(L) 6 - 24 % 12/29/2022 15:44 EDT [facility] Blood VENOUS BLOOD / Unknown 12/26/2022 7:35 EDT 12/26/2022 17:37 EDT Narrative [facility] - 12/29/2022 15:44 EDT Analyte Specific Reagent. ??This test was developed and its performance characteristics determined by Laboratory Medicine and Pathology, [facility]. This test has not been cleared or [...] Resulting Lab IMMUNOLOGY A [place] SEROLOGY ORDERABLES [facility] [address] [place] [address] documented in this encounter Visit Diagnoses Not on filedocumented in this encounter Care Teams Supervisor Fine Grading Relationship Specialty Start Date End Date Aneta Perez PA [address] [place] [phone] PCP - General 11/12/18 documented as of this encounter
--- OUTSIDE RECORDS SUMMARY | 2023-12-14 02:30 | XMS_ITS | Encounter Summary ---
Author [facility] [place] [id number] Care Team Providers Care Textile Supervisor Name Role Phone Yanique Mandujano MARIAH Primary Care Provider [phone]- [phone] Reason for Visit * Reason Comments IV Medication * High Dollar Medication (Routine) - Closed Specialty Diagnoses / Procedures Referred By Contac t Referred To Contact Med Infusion Diagnoses Rheumatoid arthritis involving multiple sites with positive rheumatoid factor Procedures TC RITUXIMAB, 10MG INJECTION Zak Lee MD [facility] [place] [address] [facility] Med Infusion [address] [place] [phone] Referral ID Status Reason Start Date Expiration Date V isits Requested Visits Authorized [id number] Closed Consult, Test & Treat 06/02/2018 06/02/2019 2 2 Encounter Details Date Type Department Care Team (Latest Contact Info) Description 07/01/2018 8:17 AM EST - 07/01/2018 11:59 PM EST Hospital Encounter [place] [address] Rheumatoid arthritis involving multiple sites [...] Take 1 tablet by mouth daily. 05/13/2018 ugichemTOUCH ULTRA BLUE TEST STRIP Strip as needed. 01/25/2018 ugichemTOUCH ULTRA2 Kit as needed. 01/25/2018 lamoTRIgine (LAMICTAL) [...] 36.8 ??C (98.2 ??F) (Oral) Resp 20 [id number]% IF PAIN >5, INTERVENTION AND EFFECTIVENESS: na [...] mg documented in this encounter Care Teams Textile Supervisor Relationship Specialty Start Date End Date Yanique Mandujano APRN [address] [place] [phone] PCP - General 04/23/10 10/16/19 documented as of this encounter
--- OUTSIDE RECORDS SUMMARY | 2023-12-14 02:30 | XMS_ITS | Encounter Summary ---
Author Organization [facility] Address [address] [place] [address] Care Team Providers Care Skiver Machine Operator Name Role Phone Aneta Perez Primary Care Provider [phone] Encounter Details Date Type Department Care Team (Late st Contact Info) Description 07/31/2021 Lab Requisition [facility] Pathology & Laboratory Medicine - [facility] [address] [place] [address] Outr Resulting Lab, Provider Social History Tobacco [...] 4th Generation Negative Negative 08/01/2021 10:31 EST [facility] Comment:If acute HIV-1 infec tion is suspected in a high risk patient, submit plasma specimen for HIV-1 RNA quantitation test. Blood VENOUS BLOOD / Unknown 07/31/2021 11:50 EST 07/31/2021 21:30 EST Narrative [facility] - 08/01/2021 10:31 EST Fourth Generation assay performed on the Siemens [facility] XPT. Provider Outr Resulting Lab IMMUNOLOGY A ND SEROLOGY ORDERABLES [facility] [address] [place] [address] documented in this encounter Visit Diagnoses Not on filedocumented in this encounter Care Teams Skiver Machine Operator Relationship Specialty Start Date End Date Aneta Perez PA [address] [place] [phone] PCP - General 11/12/18 documented as of this encounter
--- OUTSIDE RECORDS SUMMARY | 2023-12-14 02:30 | XMS_ITS | Encounter Summary ---
Author Organization [facility] Address [address] [place] [address] Care Team Providers Care Parts Processor Name Role Phone Aneta Perez Primary Care Provider [phone] Encounter Details Date Type Department Care Team (Latest Contact Info) Description 05/07/2021 Lab Requisition [facility] Pathology & Laboratory Medicine - [facility] [address] [place] [address] Do Parisi, SENIOR TALENT ACQUISITION SPECIALIST [address] [place] [address] Encounter for screening for malignant neoplasm of [...] Risk types, PCR Negative Negative 05/15/2021 8:42 [facility] Comment:No E6 or E7 mRNA is detected from HPV types 16,18,31,33,35,39,45,51,52,56,58,59,66, and 68 by risk engineer mediated amplification. Papanicolaou smear specimen (specimen) CERVIX UTERI STRUCTURE / Unknown 05/06/2021 10:30 EST 05/13/2021 14:53 EST Do Roel Parisi SENIOR TALENT ACQUISITION SPECIALIST MICROBIOLOGY - GE NERAL ORDERABLES [facility] [address] [place] [address] * PAP TEST (05/06/2021 10:30 EST) Specimens A. Cervix and/or Endocervix , ThinPrep Imaging System with Manual Evaluation 05/15/2021 8:42 [facility] Specimen Adequacy Satisfactory for Evaluation - transformation zone component present 05/15/2021 8:42 [facility] General Categorization Negative for intraepithelial lesion or malignancy 05/15/2021 8:42 [facility] Descriptive Diagnosis Shift in sona present suggestive of bacterial vaginosis. 05/15/2021 8:42 [facility] Attestation . 05/15/2021 8:42 [facility] at 0842 Clinical History See below 05/15/20 8:42 [facility] HPV The result for the Human Papillomavirus (HPV) Detection-High Risk Types is Negative. No E6 or E7 mRNA is detected from HPV types 16,18,31,33,35,39 ,45,51,52,56,58,5 9,66, and 68 by risk engineer mediated amplification.Allie ting was performed on specimen [id number] and was resulted on 05/15/2021 0838 EST by MICHELLE, LAB INSTRUMENT RESULTS IN 05/15/2021 8:42 EST [facility] Performing Lab [facility] 05/15/2021 8:42 EST [facility] Scanned Images 05/15/2021 8:42 EST [facility] Papanicolaou smear specimen (specimen) CERVIX UTERI STRUCTURE / Unknown 05/06/2021 10:30 EST 05/07/2021 15:02 EST Do Parisi SENIOR TALENT ACQUISITION SPECIALIST PATHOLOGY ORDERAB LES [facility] [address] [place] [address] documented in this encounter Visit Diagnoses Diagnosis Encounter for screening for malignant neoplasm of cervix Screening for malignant neoplasm of the cervix Encounter for screening for human papillomavirus (HPV) Special screening examination for human papillomavirus (HPV) documented in this encounter Care Teams Parts Processor Relationship Specialty Start Date End Date Aneta Perez PA [address] [place] [phone] PCP - General 11/12/18 documented as of this encounter
--- OUTSIDE RECORDS SUMMARY | 2023-12-14 02:30 | XMS_ITS | Encounter Summary ---
Author Organization [facility] Address [address] [place] [address] Care Team Providers Care Director Facilities Maintenance Name Role Phone Aneta Perez Primary Care Provider [phone] Encounter Details Date Type Department Care Team (Late st Contact Info) Description 12/26/2022 Lab Requisition [facility] Pathology & Laboratory Medicine - [facility] [address] [place] [address] Outr Resulting Lab, Provider Social History Tobacco [...] 610 - 1,616 mg/dL 12/29/2022 10:03 EDT [facility] Blood VENOUS BLOOD / Unknown 12/26/2022 7:35 EDT 12/26/2022 17:36 EDT Provider Outr Resulting Lab CHEMISTRY & BLOOD GAS ORDERABLES [facility] [address] [place] [address] documented in this encounter Visit Diagnoses Not on filedocumented in this encounter Care Teams Director Facilities Maintenance Relationship Specialty Start Date End Date Aneta Perez PA [address] [place] [address] PCP - General 11/12/18 documented as of this encounter
--- OUTSIDE RECORDS SUMMARY | 2023-12-14 02:30 | XMS_ITS | Referral Summary ---
Author Organization [facility] Address [address] [place] [address] Care Team Providers Care Car Inspector Name Role Phone Aneta Perez Primary Care Provider [phone] Social History Tobacco Use Types Packs/Day Years [...] C Antibody Negative Negative 08/01/2021 10:07 EST [facility] Blood VENOUS BLOOD / Unknown 07/31/2021 11:50 EST 07/31/2021 21:30 EST Provider Outr Resulting Lab CHEMISTRY & BLOOD GAS ORDERABLES [facility] [address] [place] [address] from Last 3 Months or Most Recently Relevant to Health Maintenance Care Teams Car Inspector Relationship Specialty Start Date End Date Aneta Perez PA [address] [place] [address] PCP - General 11/12/18
--- OUTSIDE RECORDS SUMMARY | 2023-12-14 02:30 | XMS_ITS | Encounter Summary ---
Author Organization [facility] Address [address] [place] [address] Care Team Providers Care Wellness Educator Name Role Phone Aneta Perez Primary Care Provider [phone] Encounter Details Date Type Department Care Team (Late st Contact Info) Description 11/16/2019 Lab Requisition [facility] Pathology & Laboratory Medicine - [facility] [address] [place] [address] Outr Resulting Lab, Provider Social History Tobacco [...] Outr Resulting Lab MICROBIOLOGY - GENERAL ORDERABLES [facility] [address] [place] [address] * COVID-19 TESTING (11/16/2019 21:15 EDT) COVID-19 rt-PCR Result Negative Negative 11/17/2019 12:22 EDT [facility] Comment: This test has not [...] history, and epidemiological information. Performed on the [employer]Port ([employer] Fusion instrument Performing Lab [place] [facility] Lab 11/17/2019 12:22 EDT [facility] Swab 11/16/2019 21:1 5 EDT 11/17/2019 8:41 EDT Provider Outr Resulting Lab MICROBIOLOGY - GENERAL ORDERABLES [facility] [address] [place] [address] documented in this encounter Visit Diagnoses Not on filedocumented in this encounter Care Teams Wellness Educator Relationship Specialty Start Date End Date Aneta Perez PA [address] [place] [address] PCP - General 11/12/18 documented as of this encounter
--- OUTSIDE RECORDS SUMMARY | 2023-12-14 02:30 | XMS_ITS | Encounter Summary ---
Author Organization [facility] Address [facility] [place] [address] Care Team Providers Care Intelligence Group Supervisor Name Role Phone Yanique Mandujano APRN Primary Care Provider [phone] Reason for Visit * Reason Comments Headache Encounter Details Date Type Department Care Team (Late st Contact Info) Description 01/04/2011 3:04 PM EDT - 01/04/2011 7:53 PM [place] [address] Rodney Luna MD [facility] [address] [place] [address] Yanique Cast MD [facility] DR [place] [address] Headache Discharge Disposition: Home Social History Tobacco [...] Care Everywhere. * HEADACHE: AFTER YOUR VISIT (SRI LANKAN) documented in this encounter Medications at Time [...] years ago that was 8 cm in [place], [place]. Pt states she was supposed to [...] RN) documented in this encounter Care Teams Intelligence Group Supervisor Relationship Specialty Start Date End Date Yanique Mandujano APRN [address] [place] [phone] PCP - General 04/23/10 10/16/19 documented as of this encounter
--- OUTSIDE RECORDS SUMMARY | 2023-12-14 02:30 | XMS_ITS | Encounter Summary ---
Author Organization [facility] [place] [address] Care Team Providers Care Yield Analyst Name Role Phone Yanique Mandujano APRN Primary Care Provider [phone] Encounter Details Date Type Department Care Team (Late st Contact Info) Description 07/15/2016 Telephone [place] [phone] Shruthi Mai MD [facility] [address] ENDOCRINOLOGY [place] [address] Social History Tobacco Use Types Packs/Day Years [...] on filedocumented in this encounter Care Teams Yield Analyst Relationship Specialty Start Date End Date Yanique Mandujano APRN [address] [place] [phone] PCP - General 04/23/10 10/16/19 documented as of this encounter
--- OUTSIDE RECORDS SUMMARY | 2023-12-14 02:30 | XMS_ITS | Encounter Summary ---
[facility] [place] [address] Care Team Providers Care Mill Operator Helper Name Role Phone Yanique Mandujano ASSISTANT OFFSET PRESS OPERATOR Primary Care Provider [phone] Encounter Details Date Type Department Care Team (Late st Contact Info) Description 06/02/2018 Ancillary Procedure [facility] [place] [address] Yanique Mandujano APRN [address] [place] [phone] Social History Tobacco Use Types Packs/Day Years [...] DX Hand (06/02/2018 12:00 AM EST) Narrative [facility] - 10/05/2019 2:38 PM EDT This exam is auto-finalizing. It's purpose is for storage only. Yanique Mandujano APRN IMG FILM LIBRARY O RDERABLES [place] documented in this encounter Visit Diagnoses Not on filedocumented in this encounter Care Teams Mill Operator Helper Relationship Specialty Start Date End Date Yanique Mandujano, MARIAH [address] [place] [address] PCP - General 04/23/10 10/16/19 documented as of this encounter
--- OUTSIDE RECORDS SUMMARY | 2023-12-14 02:30 | XMS_ITS | Encounter Summary ---
Author Organization [facility] Address [address] [place] [address] Care Team Providers Care Charge Hand Name Role Phone Aneta Perez Primary Care Provider [phone] Encounter Details Date Type Department Care Team (Late st Contact Info) Description 07/31/2021 Lab Requisition [facility] Pathology & Laboratory Medicine - [facility] [address] [place] [address] Outr Resulting Lab, Provider Social History Tobacco [...] C Antibody Negative Negative 08/01/2021 10:07 EST [facility] Blood VENOUS BLOOD / Unknown 07/31/2021 11:50 EST 07/31/2021 21:30 EST Provider Outr Resulting Lab CHEMISTRY & BLOOD GAS ORDERABLES Performing Organization Address [facility]/State/ZIP Co de Phone Number [facility] [address] [place] [address] documented in this encounter Visit Diagnoses Not on filedocumented in this encounter Care Teams Charge Hand Relationship Specialty Start Date End Date Aneta Perez PA [address] [place] [address] PCP - General 11/12/18 documented as of this encounter
--- OUTSIDE RECORDS SUMMARY | 2023-12-14 02:30 | XMS_ITS | Encounter Summary ---
Author Organization [facility] Address [address] [place] [address] Care Team Providers Care Residential Framing Carpenter Name Role Phone Yanique Mandujano APRN Primary Care Provider [phone] Encounter Details Date Type Department Care Team (Latest Contact Info) Description 11/09/2018 10:04 EDT - 11/09/2018 23:59 EDT Hospital Encounter [address] [address] Unknown, Provider, Discharge Disposition: Home or Self Care Social History Tobacco Use Types Packs/Day Years Used Date Smoking Tobacco: Never Assessed Sex and Gender Information Value Date Recorded Sex Assigned at Not on file Gender Identity Not on file Sexual Orientation Not on file documented as of this encounter Discharge Disposition Disposition Code Departure Means Destination Home or Self Nursing Home documented in this encounter Plan of Treatment Not on file documented as of this encounter Visit Diagnoses Not on filedocumented in this encounter Care Teams Residential Framing Carpenter Relationship Specialty Start Date End Date Yanique Mandujano APRN PCP - General 04/04/15 11/11/18 documented as of this encounter
--- OUTSIDE RECORDS SUMMARY | 2023-12-14 02:30 | XMS_ITS | Encounter Summary ---
Author Organization [facility] Address [address] [place] [address] Care Team Providers Care Logistics Director Name Role Phone Aneta Perez Primary Care Provider [phone] Encounter Details Date Type Department Care Team (Late st Contact Info) Description 02/13/2020 Lab Requisition [facility] Pathology & Laboratory Medicine - [facility] [address] [place] [address] Micaela Abraham, DO [address] [place] [address] Encounter for other general examination Social History [...] mucosa with mild reflux esophagitis. 02/16/2020 12:03 [facility] Diagnosis Comment ANTIBODY(CLONE)(BLOCK ):RESULT H pylori (Rabbit Monoclonal (SP48), [place]) (C1): Negative NOTE: One or more of [...] performance characteristics have been determined by [facility] and/or by the referring laboratory. The [...] high complexity clinical laboratory testing. 02/16/2020 12:03 [facility] Attestation By the signature below, the attending physician certifies that they have 1) personally conducted a gross and/or microscopic examination of the described specimen(s), and/or personally interpreted the results of laboratory testing of the described specimen(s), and 2) personally rendered or confirmed the above diagnosis. 02/16/2020 12:03 [facility] at 1203 Clinical History Epigastric and RUQ pain; nausea/vomiting 02/16/2020 12:03 [facility] Gross Description A. Received in [...] in F1. 02/13/2020 16:08 02/16/2020 12:[address] [facility] Performing Lab [facility] 02/16/2020 12:[address] [facility] Scanned Images 02/16/2020 12:[address] [facility] Tissue ENTIRE ESOPHAGUS / [...] 15:38 EDT Micaela Abraham DO PATHOLOGY ORDERABLES [facility] [address] [place] [address] documented in this encounter Visit Diagnoses Diagnosis Encounter for other general examination documented in this encounter Care Teams Logistics Director Relationship Specialty Start Date End Date Aneta Perez PA [address] [place], [place] [id number] PCP - General 11/12/18 documented as of this encounter
--- OUTSIDE RECORDS SUMMARY | 2023-12-14 02:30 | XMS_ITS | Encounter Summary ---
Author Organization [facility] Address [address] [place] [address] Care Team Providers Care Polysilicon Preparation Worker Name Role Phone Aneta Perez Primary Care Provider [phone] Encounter Details Date Type Department Care Team (Late st Contact Info) Description 07/18/2023 Lab Requisition [facility] Pathology & Laboratory Medicine - [facility] [address] [place] [address] Outr Resulting Lab, Provider Social History Tobacco [...] gonorrhoeae Result Negative Negative 07/19/2023 14:21 EST [facility] Chlamydia trachomatis Result Negative Negative 07/19/2023 14:21 EST [facility] Swab VAGINAL STRUCTURE / Unknown 07/17/2023 16:20 EST 07/18/2023 21:32 EST Provider Outr Resulting Lab MICROBIOLOGY - GENERAL ORDERABLES [facility] [address] [place] [address] documented in this encounter Visit Diagnoses Not on filedocumented in this encounter Care Teams Polysilicon Preparation Worker Relationship Specialty Start Date End Date Aneta Perez PA [address] [place], [place] [phone] PCP - General 11/12/18 documented as of this encounter
--- OUTSIDE RECORDS SUMMARY | 2023-12-14 02:30 | XMS_ITS | Encounter Summary ---
Author Organization [facility] [place] [address] Care Team Providers Care Mammographer Name Role Phone Yanique Mandujano APRN Primary Care Provider [phone] Encounter Details Date Type Department Care Team (Late st Contact Info) Description 11/30/2018 10:30 AM EDT Office [place] [address] Zak Lee MD [facility] [place] [address] Rheumatoid arthritis involving multiple sites with positive [...] AM EDT Rheumatology Clinic: Dr. Lee 11/30/2018 [id number] Liset Hager is seen in follow-up of her seropositive rheumatoid arthritis. We saw her one andonly one time back on 06/02/2018. She has been followed by Dr. Morgan in [place] for about 2 yearsbefore she retired. The [...] discussing these problems and their treatmentoptions in [id number] counseling. Orders Placed This Encounter Procedures ??? [...] medications documented in this encounter Care Teams Mammographer Relationship Specialty Start Date End Date Yanique Mandujano APRN [address] [place] [phone] PCP - General 04/23/10 10/16/19 documented as of this encounter
--- OUTSIDE RECORDS SUMMARY | 2023-12-14 02:30 | XMS_ITS | Encounter Summary ---
Author Organization [facility] Address [facility] [place] [address] Care Team Providers Care Safety Analyst Name Role Phone Yanique Mandujano MARIAH Primary Care Provider [phone] Reason for Visit * Reason Comments IV Medication * High Dollar Medication (Routine) - Closed Specialty Diagnoses / Procedures Referred By Contac t Referred To Contact Med Infusion Diagnoses Rheumatoid arthritis with rheumatoid factor of multiple sites without organ or systems involvement Day 1 RITUXAN:Lee EDH Procedures TC RITUXIMAB, 10MG INJECTION RITUXAN Zak Lee MD [facility] [place] [address] [facility] Med Infusion [address] [place] [phone] Referral ID Status Reason Start Date Expiration Date Visits Re quested Visits Authorized [id number] Closed 12/14/2018 12/30/2018 1 1 Encounter Details Date Type Department Care Team (Latest Contact Info) Description 12/14/2018 8:17 AM EDT - 12/14/2018 11:59 PM EDT Hospital Encounter [place] [address] Rheumatoid arthritis involving multiple sites [...] Take 1 tablet by mouth daily. 05/13/2018 [employer] ULTRA BLUE TEST STRIP Strip as needed. 01/25/2018 UrgeUCH ULTRA2 Kit as needed. 01/25/2018 lamoTRIgine (LAMICTAL) [...] 36.6 ??C (97.9 ??F) (Oral) Resp 18 ZzE200% IF PAIN >5, INTERVENTION AND EFFECTIVENESS: N/A [...] mg documented in this encounter Care Teams Safety Analyst Relationship Specialty Start Date End Date Yanique Mandujano APRN [address] [place] [phone] PCP - General 04/23/10 10/16/19 documented as of this encounter
--- OUTSIDE RECORDS SUMMARY | 2023-12-14 02:30 | XMS_ITS | Clinical Summary ---
Author Organization [facility] Address [address] [place] [address] Care Team Providers Care Garment Tag Stringer Name Role Phone Aneta Perez Primary Care Provider [phone] Social History Tobacco Use Types Packs/Day Years [...] C Antibody Negative Negative 08/01/2021 10:07 EST [facility] Blood VENOUS BLOOD / Unknown 07/31/2021 11:50 EST 07/31/2021 21:30 EST Provider Outr Resulting Lab CHEMISTRY & BLOOD GAS ORDERABLES [facility] [address] [place] [address] from Last 3 Months or Most Recently Relevant to Health Maintenance Care Teams Garment Tag Stringer Relationship Specialty Start Date End Date Aneta Perez PA [address] [place] [address] PCP - General 11/12/18
--- OUTSIDE RECORDS SUMMARY | 2023-12-14 02:30 | XMS_ITS | Encounter Summary ---
Author Organization [facility] Address [address] [place] [address] Care Team Providers Care Nursing Techn Name Role Phone Unavailable Primary Care Provider Unavailabl e Encounter Details Date Type Department Care Team (Late st Contact Info) Description 12/02/2007 Before PRISM Converted Visit (Maple) [facility] - Maple conversion [address] [place] [address] Anup Javier, DO [address] [place] [address] Social History Tobacco Use Types Packs/Day Years [...] ? FYSH, DIOGENES ? Accession #: ? [id number] ? : ? 1980 (Age: 27) ??F ? Collect Date: ? 12/02/2007 ? Location: ? [facility] ? Receive Date: ? 12/02/2007 ? Provider: ANUP MITZ DO ? Copy to: JAMILPREET PICKENS NEONATAL SOCIAL WORKER ? Final Pathologic Diagnosis: ? A. ?Duodenum, [...] pain/GERD ? Gross Description: ? Received in eFlixande's fixative labelled Fysh and 2nd portion of [...] DO PATHOLOGY ORDERABLES [facility] [address] [place] [address] documented in this encounter Visit Diagnoses Not on filedocumented in this encounter
--- OUTSIDE RECORDS SUMMARY | 2023-12-14 02:30 | XMS_ITS | Encounter Summary ---
Author Organization [facility] [place] [address] Care Team Providers Care Fund Raiser Name Role Phone Yanique Mandujano MARIAH Primary Care Provider [phone] Encounter Details Date Type Department Care Team (Late st Contact Info) Description 03/01/2014 [place] [id number] Tato Joe MD [address] [place] [address] Social History Tobacco Use Types Packs/Day Years [...] 1:40 PM EDT) Surgical Pathology Report ? [facility] ? Provider: ?? CAMELIA, ? Pt. Name: ?? FABIAN MANDUJANO ?TATO ? Acc #: ?[id number] ?Pt. ? Col Date: ?? 03/01/2014 ? 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 [facility] ? Provider: ?? CAMELIA, ? Pt. Name: ?? FABIAN MANDUJANO ?TATO ? Acc #: ?[id number] ?Pt. ? Col Date: ?? 03/01/2014 ? /Sex: ?1980,(33 years),Female ? Rec Date: ?? 03/02/2014 ? LOC: ?[facility] ? SURGICAL PATHOLOGY ? Referring Identifier: ??[id number] YE DUMONT 03/01/2014 1:40 PM EDT Narrative YE DUMONT - 03/03/2014 3:40 PM EDT Spec In Lab / [facility] Tato Joe MD PATHOLOGY/CYTOLO GY ORDERABLES YE DUMONT documented in this encounter Visit Diagnoses Not on filedocumented in this encounter Care Teams Fund Raiser Relationship Specialty Start Date End Date Yanique Mandujano APRN [address] [place] [address] PCP - General 04/23/10 10/16/19 documented as of this encounter
--- OUTSIDE RECORDS SUMMARY | 2023-12-14 02:30 | XMS_ITS | Encounter Summary ---
Author Organization [facility] Address [address] [place] [address] Care Team Providers Care Offset Plate Preparation Supervisor Name Role Phone Aneta Perez Primary Care Provider [phone] Encounter Details Date Type Department Care Team (Late st Contact Info) Description 01/27/2023 Lab Requisition [facility] Pathology & Laboratory Medicine - [facility] [address] [place] [address] Outr Resulting Lab, Provider Social History Tobacco [...] gonorrhoeae Result Negative Negative 01/28/2023 13:47 EDT [facility] Chlamydia trachomatis Result Negative Negative 01/28/2023 13:47 EDT [facility] Swab VAGINAL STRUCTURE / Unknown 01/27/2023 11:40 EDT 01/27/2023 22:29 EDT Provider Outr Resulting Lab MICROBIOLOGY - GENERAL ORDERABLES [facility] [address] [place] [address] documented in this encounter Visit Diagnoses Not on filedocumented in this encounter Care Teams Offset Plate Preparation Supervisor Relationship Specialty Start Date End Date Aneta Perez PA [address] [place] [address] PCP - General 11/12/18 documented as of this encounter
--- OUTSIDE RECORDS SUMMARY | 2023-12-14 02:30 | XMS_ITS | Encounter Summary ---
Author Organization [facility] [place] [address] Care Team Providers Care Pest Control Service Sales Agent Name Role Phone Yanique Mandujano BRICKLAYER APPRENTICE Primary Care Provider [phone] Reason for Visit * Consultation (Routine) - Closed Specialty Diagnoses / Procedures Referred By Roberto palomares Referred To Contact Endocrinology Diagnoses autoimmune thyroiditis Yanique Mandujano, MARIAH [address] [place] [address] [facility] [address] [place] [phone] Referral ID Status Reason Start Date Expiration Date V isits Requested Visits Authorized [id number] Closed Consult, Test & Treat Connection [facility] 06/10/2016 06/10/2017 1 1 Encounter Details Date Type Department Care Team (Late st Contact Info) Description 07/15/2016 8:00 AM EST Office Visit [place] [address] Chao Malik DO [facility] [address] [place] [address] Shruthi Mai MD [facility] [place] [address] Hyperthyroidism Social History Tobacco Use [...] noted previously she was referred to Endocrinology [facility] for further management. Thyroid Compressive symptoms: Globus [...] DM Social History lives with brother. 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 for further management. Liset's initial labs supports [...] them as documented. Chao Malik DO, MS Chief Transfer And Pumphouse Operatorslasher tender Section of Endocrinology [facility] documented in this encounter Plan of [...] T3, Total 157 75 - 170 ng/dL [facility] Blood specimen (specimen) 07/15/2016 9:08 AM EST 07/15/2016 9:17 AM EST Narrative Resulting Agency Comment Spec In Lab Chao Malik DO CHEMISTRY ORDERABLES Performing Organization Address City/[facility]/ZIP Co de Phone Number [facility] [place] [address] * T4, free (07/15/2016 9:08 AM EST) Free T4 1.01 0.93 - 1.70 ng/dL [facility] Blood specimen (specimen) 07/15/2016 9:08 AM EST 07/15/2016 9:17 AM EST Narrative Resulting Agency Comment Spec In Lab Chao Malik DO CHEMISTRY ORDERABLES Performing Organization Address City/[facility]/ZIP Co de Phone Number [facility] [address] * TSH (07/15/2016 9:08 AM EST) TSH 2.72 0.27 - 4.20 mcIU/mL [facility] Blood specimen (specimen) 07/15/2016 9:08 AM EST 07/15/2016 9:17 AM EST Narrative Resulting Agency Comment Spec In Lab Chao Malik DO CHEMISTRY ORDERABLES Performing Organization Address City/[facility]/ZIP Co de Phone Number [facility] [place] [address] documented in this encounter Visit Diagnoses Diagnosis Hyperthyroidism Thyrotoxicosis without mention of goiter or other cause, without mention of thyrotoxic crisis or storm documented in this encounter Care Teams Pest Control Service Sales Agent Relationship Specialty Start Date End Date Yanique Mandujano APRN [address] [place] [phone] PCP - General 04/23/10 10/16/19 documented as of this encounter
--- OUTSIDE RECORDS SUMMARY | 2023-12-14 02:30 | XMS_ITS | Encounter Summary ---
Author Organization [facility] Address [address] [place] [address] Care Team Providers Care Combat Engineer Name Role Phone Aneta Perez Primary Care Provider [phone] Encounter Details Date Type Department Care Team (Late st Contact Info) Description 05/10/2021 Lab Requisition [facility] Pathology & Laboratory Medicine - [address] [address] Outr Resulting Lab, Provider Social History Tobacco [...] gonorrhoeae Result Negative Negative 05/13/2021 15:21 EST [facility] Chlamydia trachomatis Result Negative Negative 05/13/2021 15:21 EST [facility] Swab ENTIRE ENDOCERVIX / Unknown 05/10/2021 11:55 EST 05/10/2021 22:10 EST Provider Outr Resulting Lab MICROBIOLOGY - GENERAL ORDERABLES [facility] [address] [place] [address] documented in this encounter Visit Diagnoses Not on filedocumented in this encounter Care Teams Combat Engineer Relationship Specialty Start Date End Date Aneta Perez PA [address] [place] [id number] PCP - General 11/12/18 documented as of this encounter
--- NOTE | 2023-12-14 08:00 | DI.US_ITS ---
Exam(s) US PELVIS TRANSVAGINAL EXAM: US PELVIS TRANSVAGINAL CLINICAL HISTORY: R ovarian cyst--further charactize,n83.201 TECHNIQUE: Transabdominal and transvaginal imaging was performed using standard protocol. COMPARISON: CT CT ABDOMEN PELVIS W from 11/20/2023 FINDINGS: UTERUS: Anteverted. 2.7 x 2.2 x 2.1 cm Endometrium: 6 millimeters. Not well visualized. Myometrium: Area of of posterior low attenuation is likely an artifact. Cervix: Tiny nabothian cyst. OVARIES: Right: Cyst or mass: None. Follicle noted on right ovary on prior CT not visualized on today's exam. Left: Cyst or mass: None. DOPPLER: Color: Symmetric and uniform flow to both ovaries. No hyperemia. CUL-DE-SAC: Free fluid: None. IMPRESSION: 1. Normal-appearing uterus with endometrial stripe within normal limits. 2. Unremarkable bilateral ovaries. DATA REPOSITORY:
== END ==
PROVIDERS: PCP Nurse Practitioner Adult Health; Visit Provider Nurse Practitioner Adult Health
DX: N83.201 Unspecified ovarian cyst, right side (principal)
CPT/HCPCS: 76830; 76856

== ENCOUNTER 2024-01-26 09:18 | Day surgery (SDC) | payer MEDICARE, SELFPAY ==
--- NOTE | 2023-12-28 17:35 | W.PM.ENDDOP ---
Date of service: 12/29/23 Endoscopy Report PRE-OP DIAGNOSIS: GERD/Schatzski's Ring/hx of ulcers SURGEON: Micaela Abraham ANESTHESIA TYPE: General:No Airway ESTIMATED BLOOD LOSS: 2 PATHOLOGY: other COMPLICATIONS: None DISPOSITION: same day PROCEDURE DESCRIPTION: After informed consent was obtained 9Risks: bleeding, infections, perforations {which could require surgery or antibiotics and prolonged hospital stay}, or ostomy, and complications of anaesthesia, dl aspiration). The patient was take to the procedure room and placed in a supine position. Monitors were applied and a time out was done. The patients name, date of , procedure type, allergies to medications and metal in their body was reviewed. A bite block was placed and the patient was sedated. Once sedated and comfortable an Olympus gastroscope (see RN notes for scope #) was advanced through the oropharynx which was grossly normal, and passed into the esophagus. The proximal and mid-esophagus were normal. The distal esophagus does not show any: dilation/strictures/varices/erosions or ulcers/bleeding noted. The scope was advanced into the stomach and through the pylorus into the proximal jejunum. A bx is taken for celiac Dx []. The duodenum was noted to be []. Biopsies were done of the duodenal bulb.. The scope was retracted back into the stomach and biopsies were taken of the antrum. There were no gastritis/gastropathy/ ulcers/masses noted. The scope was retroflexed. The cardia and fundus were noted to be normal. There [] a hiatal hernia noted. The scope was retracted back into the esophagus and biopsies were done of the GE junction (in all 4 quadrants) and distal esophagus (2cm above the GE junction) to rule out De Jesus's. All specimens are retrieved and no bleeding was noted. The Z line was regular. The GE junction was at [] cm. The scope was removed and the patient was woken up and taken back to [facility] in stable condition.
--- NOTE | 2023-12-28 17:38 | W.COLOREPORT ---
Date of service: 12/29/23 Colonoscopy Report Date of procedure: 12/29/23 Pre-op diagnosis general: RUQ pain/banl CT-recto/sigmoid thickening Surgeon: Micaela Abraham Anesthesia Type: General:No Airway Estimated blood loss (mL): 2 Pathology: other Complications: None Disposition: same day Prep: Miralax/Dulcolax Procedure Description: After informed consent was obtained, explaining risks of the procedure, including but not limits to: bleeding, infections, complications of anesthesia, perforations (which may require antibiotics and /or surgery and stay in the hospital), and abdominal pain/cramping. The patient was taken to the procedure room and placed in a left decubitous position. Monitors were applied and a time out was done. The patients name, date of , procedure, allergies to medications and metal in their body was reviewed. The patient was then sedated. Once sedated and comfortable a rectal exam was done. External exam was normal. Internal exam revealed a normal sphincter tone and no palpable masses. The prostate []. The previously lubricated Olympus scope was then introduced (see RN notes for scope number) and retrofelexed. [] internal hemorrhoids were identified. The scope was then advanced to the cecum without difficulty. The TI and appendiceal orifice were identified. The scope was then slowly retracted over [] minutes back into the rectum. Polyps: []. Diverticula: []. The mucosa is pink and healthy w/ a normal vascular pattern. The scope was removed, and the patient was woken up and taken back to Same day surgery in stable condition. The patient tolerated the procedure well and there were no immediate complications. Follow up: The patient should follow up in [] years, unless they develop changes in bowel habits or other new gastrointestinal complaints.
--- NOTE | 2023-12-28 17:40 | PDOC.DSDIS_ITS ---
Date of service: 12/29/23 Discharge Plan Disposition Patient Disposition: Home Condition: Good Discharge Details Reason For Visit: stomach and colon scopes Attending Provider: Micaela Abraham Primary Care Provider: Do Parisi Home Meds and New Rx's Prescriptions: No Action albuterol sulfate [ProAir HFA] 90 mcg/actuation HFA aerosol inhaler 2 puff inhalation Q4H PRN (Reason: shortness of breath or wheezing) Qty: 8.5 1RF Rx Instructions: Start with 2puffs TID; PHARM: Dispense with spacer lorazepam [Ativan] 1 mg tablet 1 mg PO BID PRN (Reason: anxiety) Rx Instructions: [facility] acetaminophen 500 mg tablet 500 - 1,000 mg PO TID PRN (Reason: pain) Qty: 90 0RF (DME) Dexcom G7 Wood Pattern Maker Misc See Rx Instructions .MEDSUPPLY Qty: 1 0RF Rx Instructions: As directed (DME) Dexcom G7 Sensor Device See Rx Instructions .MEDSUPPLY Qty: 9 3RF Rx Instructions: As directed (DME) Blood Glucose Test Strip See Rx Instructions .MEDSUPPLY Qty: 100 3RF Rx Instructions: As directed to check blood glucose daily. On insulin. Dispense covered brand. (DME) lancets Misc See Rx Instructions .MEDSUPPLY Qty: 100 3RF Rx Instructions: As directed to check blood glucose daily. On insulin. Dispense covered brand. (DME) blood-glucose meter Misc See Rx Instructions .MEDSUPPLY Qty: 1 0RF Rx Instructions: As directed to check daily blood glucose. On insulin. Dispense covered brand. Dx: E11.9 to maintain HbA1c less than 7%. esomeprazole magnesium 40 mg capsule,delayed release(DR/EC) See Rx Instructions .ROUTE .COMPLEX Qty: 28 11RF Dose Instruction: TAKE 1 CAPSULE BY MOUTH DAILY FAILED PANTOPRAZOLE Rx Instructions: TAKE 1 CAPSULE BY MOUTH DAILY FAILED PANTOPRAZOLE sucralfate 1 gram tablet 1 g PO AC & HS Qty: 120 6RF lamotrigine 200 mg tablet 200 mg PO BID Rx Instructions: [facility] quetiapine 50 mg tablet 100 mg PO QHS Rx Instructions: per other facility records cgc (DME) pen needle, diabetic [BD Ultra-Fine Yajaira Pen Needle] 32 gauge x 5/32 needle See Rx Instructions .ROUTE .COMPLEX Qty: 100 3RF Dose Instruction: USE ONCE DAILY WITH TRESIBA Rx Instructions: USE ONCE DAILY WITH TRESIBA atorvastatin 40 mg tablet See Rx Instructions .ROUTE .COMPLEX Qty: 28 11RF Dose Instruction: TAKE 1 TABLET BY MOUTH AT BEDTIME Rx Instructions: TAKE 1 TABLET BY MOUTH AT BEDTIME metformin 500 mg tablet extended release 24 hr See Rx Instructions PO BID MDD 2,500mg Qty: 450 3RF Rx Instructions: 2 tabs (1,000mg) in AM; 3 tabs (1,500mg) in PM-- insulin glargine [Lantus Solostar U-100 Insulin] 100 unit/mL (3 mL) insulin pen 24 unit subcut DAILY MDD 34 units per day Qty: 30 3RF Rx Instructions: Or as directed for goal A1C <7% amitriptyline 100 mg tablet 100 mg PO QHS Rx Instructions: along with 100 mg tab to total 125 mg daily [facility] trazodone 100 mg Tablet 200 mg PO QHS Discharge Instructions Additional Instructions: EGD?DSU Colonoscopy Post-Op Instructions Instructions for Everyone who is given Anesthesia: For your safety, please do the following for the next twenty-four (24) hours: *Do Not operate a motor vehicle (car, truck, motorcycle, etc.) *Do Not drink alcoholic beverages or use any recreational drugs for the first 24 hours or while taking pain medications. The medications in your body may have a reaction that can be dangerous. *Do Not make any important decisions or sign any important papers. Findings: Follow up: Continue with lifestyle modifications: no alcohol, tobacco products, Aspirin or NSAID's (ibuprofen, Motrin, Naprosyn, aleve, etc), soda pop/any carbonated beverages, caffeine (including tea & chocolate), and acidic foods, (tomatoes, citrus, onions, peppermints) spicy or fried/fatty foods. Do not lie down for 30 minutes after eating, and do not eat 2 hours prior to bedtime. Avoid wearing tight fitting clothing/ belts You have just had a gastroscopy (EGD) or upper GI tract examination. It is impor tant for your smooth recovery that you carefully follow the recommendations below. Do not hesitate to call if any questions should arise about your anesthesia, condition, or care. -Symptoms you may experience during the next 24 hours: ?1. Mild abdominal pain or excessive gas or a bloated feeling which improves with rest, liquids, eating???slightly, and walking as tolerated. 2. Drowsiness and/or forgetfulness because of the medications you were given. 3. A sore throat which you can treat with throat lozenges or by gargling with salt water 4-5 times a day. 1. No lifting over 20 pounds or strenuous activity for the first 24 hours after your procedure. After 24 hours there are no restrictions on your activity but you may feel fatigued for a few days. 2. After you arrive home you may have a light meal and return to your normal diet as you can tolerate it without feeling sick to your stomach. 3. You may have a bloated, gaseous feeling in your belly (abdomen) after a colonoscopy. Passing gas and belching will help. Walking or lying down on your left side with your knees flexed may relieve the discomfort. 4. No aspirin or non-steroidal containing medication for 24 hrs. Call the office at [phone] (Office) or [phone] (Hospital) right away if you notice any of the following: a.Vomiting of blood or ?coffee ground stools?. b.Rectal bleeding 1Tbsp, blood clots or continuous bleeding. c.Severe belly (abdominal) pain. d.A hard distended belly (abdomen) and an inability to pass gas. 4. Please don?t expect to have a normal BM (bowel movement) for 2-3 days after your procedure. 5. If there are questions regarding the findings of your procedure, please contact your doctor 6. If you are unable to contact your doctor with a problem, contact the hospital at [phone]. 7. Continue all your regular medications unless directed otherwise. I understand the above instructions and have no questions. Signature of Patient or Adult Escort Name of Responsible Adult Escort Signature of Nurse Date/Time Activity:: see above Diet:: see above Discharge Orders Discharge Orders: Discharge Order (Routine); Ordered 12/29/23 Ordered By: Micaela Abraham DS: Diagnosis Discharge Diagnosis (1) Anxiety: Status: Chronic (2) Depression: Status: Chronic (3) HLD (hyperlipidemia): Status: Chronic (4) Diabetes 1.5, managed as type 2: Status: Chronic (5) History of Graves' disease: Status: Chronic (6) GERD (gastroesophageal reflux disease): Status: Chronic (7) Abnormal CT scan, colon: Status: Acute Asessment and Plan: The patient is seen and examined after their colonoscopy.? The patient has been able to pass gas.? They are not having abdominal pain.? They have been able to tolerate liquids and a snack.? They do not have any nausea or vomiting.? They are not having any chest pain or shortness of breath.??? They are not having any rectal bleeding. Their vital signs have been stable-see nursing notes. We discussed findings during their colonoscopy, and any biopsies that were done/polyps that were removed. The patient will be sent a letter with any biopsy results, and when to repeat the colonoscopy.-see discharge instructions. Patient was given explicit instructions to follow-up regarding colonoscopy-refer to discharge instructions.? We reviewed resumption of medications. Patient verbalized understanding and discharged in stable and satisfactory condition- See nursing notes. (8) Umbilical hernia: Status: Acute (9) RLQ abdominal pain: Status: Acute (10) Right ovarian cyst: Status: Acute (11) Rheumatoid arthritis: Status: Chronic (12) Chronic pain: Status: Chronic (13) Nicotine use disorder: Status: Chronic (14) Schatzki's ring of distal esophagus: (15) Graves' disease:
[2024-01-26 10:03] VITALS: BP 119/86; PULSE 98; RESP 20; TEMP 36.6; O2SAT 97
[2024-01-26] MEDS: Lactated Ringers 1,000 ML 80 ML IV (10:20)
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
[2024-01-26 10:46] VITALS: BMI 29.9
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
--- NOTE | 2024-01-26 10:51 | PDOC.DSDIS_ITS ---
Date of service: 01/26/24 Time of Service: 10:52 Discharge Plan Disposition Patient Disposition: Home Condition: Good Discharge Details Reason For Visit: stomach and colon scopes Attending Provider: Bridger Randolph Primary Care Provider: Do Parisi Home Meds and New Rx's Prescriptions: No Action albuterol sulfate [ProAir HFA] 90 mcg/actuation HFA aerosol inhaler 2 puff inhalation Q4H PRN (Reason: shortness of breath or wheezing) Qty: 8.5 1RF Rx Instructions: Start with 2puffs TID; PHARM: Dispense with spacer lorazepam [Ativan] 1 mg tablet 1 mg PO BID PRN (Reason: anxiety) Rx Instructions: [facility] acetaminophen 500 mg tablet 500 - 1,000 mg PO TID PRN (Reason: pain) Qty: 90 0RF (DME) Dexcom G7 Alpine Guide Misc See Rx Instructions .MEDSUPPLY Qty: 1 0RF Rx Instructions: As directed (DME) Dexcom G7 Sensor Device See Rx Instructions .MEDSUPPLY Qty: 9 3RF Rx Instructions: As directed (DME) Blood Glucose Test Strip See Rx Instructions .MEDSUPPLY Qty: 100 3RF Rx Instructions: As directed to check blood glucose daily. On insulin. Dispense covered brand. (DME) lancets Misc See Rx Instructions .MEDSUPPLY Qty: 100 3RF Rx Instructions: As directed to check blood glucose daily. On insulin. Dispense covered brand. (DME) blood-glucose meter Misc See Rx Instructions .MEDSUPPLY Qty: 1 0RF Rx Instructions: As directed to check daily blood glucose. On insulin. Dispense covered brand. Dx: E11.9 to maintain HbA1c less than 7%. esomeprazole magnesium 40 mg capsule,delayed release(DR/EC) See Rx Instructions .ROUTE .COMPLEX Qty: 28 11RF Dose Instruction: TAKE 1 CAPSULE BY MOUTH DAILY FAILED PANTOPRAZOLE Rx Instructions: TAKE 1 CAPSULE BY MOUTH DAILY FAILED PANTOPRAZOLE sucralfate 1 gram tablet 1 g PO AC & HS Qty: 120 6RF lamotrigine 200 mg tablet 200 mg PO BID Rx Instructions: [facility] quetiapine 50 mg tablet 100 mg PO QHS Rx Instructions: per other facility records cgc atorvastatin 40 mg tablet See Rx Instructions .ROUTE .COMPLEX Qty: 28 11RF Dose Instruction: TAKE 1 TABLET BY MOUTH AT BEDTIME Rx Instructions: TAKE 1 TABLET BY MOUTH AT BEDTIME metformin 500 mg tablet extended release 24 hr See Rx Instructions PO BID MDD 2,500mg Qty: 450 3RF Rx Instructions: 2 tabs (1,000mg) in AM; 3 tabs (1,500mg) in PM-- insulin glargine [Lantus Solostar U-100 Insulin] 100 unit/mL (3 mL) insulin pen 24 unit subcut DAILY MDD 34 units per day Qty: 30 3RF Rx Instructions: Or as directed for goal A1C <7% polyethylene glycol 3350 17 gram/dose powder 238 g PO ONCE Qty: 238 0RF Rx Instructions: take per colonoscopy instructions bisacodyl [Dulcolax (bisacodyl)] 5 mg tablet,delayed release (DR/EC) 5 mg PO ONCE Qty: 4 0RF Rx Instructions: take per colonoscopy instructions (DME) pen needle, diabetic [BD Ultra-Fine Yajaira Pen Needle] 32 gauge x 5/32 needle See Rx Instructions .ROUTE .COMPLEX Qty: 100 0RF Dose Instruction: USE ONCE DAILY WITH TRESIBA Rx Instructions: USE ONCE DAILY WITH TRESIBA amitriptyline 100 mg tablet 100 mg PO QHS Rx Instructions: along with 100 mg tab to total 125 mg daily [facility] trazodone 100 mg Tablet 200 mg PO QHS Discharge Instructions Additional Instructions: FINDINGS: On upper endoscopy some mild inflammation in your stomach is present but there a re no ulcers. Multiple biopsies were taken. This may be related to medication side effects and/or dietary and lifestyle habits. You have a very small hiatal hernia. This would not cause any pain. It might be related to your acid reflux possibly. On colonoscopy there were no significant findings. Everything appears healthy overall. Very minimal/mild hemorrhoid disease is present but this is extremely common, benign and nothing needs to be done about it. You can follow-up with your PCP to discuss constipation management. EGD?[facility] Colonoscopy Post-Op Instructions Instructions for Everyone who is given Anesthesia: For your safety, please do the following for the next twenty-four (24) hours: *Do Not operate a motor vehicle (car, truck, motorcycle, etc.) *Do Not drink alcoholic beverages or use any recreational drugs for the first 24 hours or while taking pain medications. The medications in your body may have a reaction that can be dangerous. *Do Not make any important decisions or sign any important papers. Findings: Follow up: Continue with lifestyle modifications: no alcohol, tobacco products, Aspirin or NSAID's (ibuprofen, Motrin, Naprosyn, aleve, etc), soda pop/any carbonated beverages, caffeine (including tea & chocolate), and acidic foods, (tomatoes, citrus, onions, peppermints) spicy or fried/fatty foods. Do not lie down for 30 minutes after eating, and do not eat 2 hours prior to bedtime. Avoid wearing tight fitting clothing/ belts You have just had a gastroscopy (EGD) or upper GI tract examination. It is important for your smooth recovery that you carefully follow the recommendations below. Do not hesitate to call if any questions should arise about your anesthesia, condition, or care. -Symptoms you may experience during the next 24 hours: ?1. Mild abdominal pain or excessive gas or a bloated feeling which improves with rest, liquids, eating???slightly, and walking as tolerated. 2. Drowsiness and/or forgetfulness because of the medications you were given. 3. A sore throat which you can treat with throat lozenges or by gargling with salt water 4-5 times a day. 1. No lifting over 20 pounds or strenuous activity for the first 24 hours after your procedure. After 24 hours there are no restrictions on your activity but you may feel fatigued for a few days. 2. After you arrive home you may have a light meal and return to your normal diet as you can tolerate it without feeling sick to your stomach. 3. You may have a bloated, gaseous feeling in your belly (abdomen) after a colonoscopy. Passing gas and belching will help. Walking or lying down on your left side with your knees flexed may relieve the discomfort. 4. No aspirin or non-steroidal containing medication for 24 hrs. Call the office at [phone] (Office) or [phone] (Hospital) right away if you notice any of the following: a.Vomiting of blood or ?coffee ground stools?. b.Rectal bleeding 1Tbsp, blood clots or continuous bleeding. c.Severe belly (abdominal) pain. d.A hard distended belly (abdomen) and an inability to pass gas. 4. Please don?t expect to have a normal BM (bowel movement) for 2-3 days after your procedure. 5. If there are questions regarding the findings of your procedure, please contact your doctor 6. If you are unable to contact your doctor with a problem, contact the hospital at [phone]. 7. Continue all your regular medications unless directed otherwise. I understand the above instructions and have no questions. Signature of Patient or Adult Escort Name of Responsible Adult Escort Signature of Nurse Date/Time Activity:: Activity as Tolerated Diet:: As Tolerated Discharge Orders Discharge Orders: Discharge Order (Routine); Ordered 12/29/23 Ordered By: Micaela Abraham DS: Diagnosis Discharge Diagnosis (1) Abdominal pain: Status: Acute
--- NOTE | 2024-01-26 10:51 | COLE_ITS ---
Date of service: 01/26/24 Time of Service: 10:51 Colonoscopy Report Procedure Description: PROCEDURES PERFORMED: 1. Colonoscopy PREOPERATIVE DIAGNOSIS: Bowel habit changes POSTOPERATIVE DIAGNOSIS: Grade 1 internal hemorrhoids SURGEON: Carlos Randolph MD INDICATION FOR PROCEDURE: the patient is a 43-year-old woman who is having new?onset constipation. No prior colonoscopy. No family history of colon cancer. FINDINGS: Normal terminal ileum. No inflammation anywhere. No polyps. No diverticular disease. Colon is somewhat subjectively redundant but otherwise no unusual findings. In the rectum grade 1 internal hemorrhoids are present. SURVEILLANCE interval/FOLLOW-UP: 10 years. Patient can discuss constipation management with her PCP. SPECIMENS: None EBL: Minimal COMPLICATIONS: None QUALITY of prep: Excellent Procedure in detail: The patient gave written consent and was in agreement with the indications, the potential risks as well as the benefits of the procedure. She was turned from upper endoscopy (see separate procedure note) and kept in l eft lateral decubitus position and I started the colonoscopy portion of the procedure. Digital rectal and visual examination was performed and grossly within normal limits. A well-lubricated flexible colonoscope was then introduced and passed without any notable difficulty all the way to the cecum identified by the ileocecal valve and the appendiceal orifice. The terminal ileum was intubated and looked normal. The scope was then slowly withdrawn with the above-noted findings. The patient tolerated the procedure well and was taken to the PACU in hemodynamically stable condition.
--- NOTE | 2024-01-26 10:51 | W.PM.ENDDOP ---
Date of service: 01/26/24 Time of Service: 10:51 Endoscopy Report PROCEDURE DESCRIPTION: PROCEDURES PERFORMED: 1. EGD with biopsies PREOPERATIVE DIAGNOSIS: Epigastric pain POSTOPERATIVE DIAGNOSIS: Gastritis, small type I sliding hiatal hernia (Hill grade 1 defect) SURGEON: Carlos Randolph MD INDICATION FOR PROCEDURE: 43-year-old woman who has had long standing abdominal discomfort related to eating. She has a history of peptic ulcer disease. FINDINGS: D2/D3 = normal D1/bulb = normal - no ulcers or inflammation Pylorus = normal Antrum = appears mildly inflamed but no ulcers, cold forceps biopsies were taken to rule out H. pylori routinely Body = mildly inflamed appearance, biopsies taken with cold forceps technique routinely Fundus = also mildly inflamed, no polyps, cold forceps biopsies taken here. Cardia = normal Hiatus = small type I hiatal hernia (~1 cm slide) Hill grade 1 defect Distal esophagus = no inflammation, no esophagitis, no De Jesus's, no stricture. I did take biopsies routinely because she reports GERD subjectively. Mid esophagus = normal Proximal esophagus/hypopharynx/vocal cords = normal SURVEILLANCE-INTERVAL/FOLLOW-UP: Follow-up with PCP and/your GI doctors, no surveillance necessary Specimens: Yes EBL: Minimal COMPLICATIONS: None Procedure in detail: The patient gave written consent and was in agreement with the indications, the potential risks as well as the benefits of the procedure. The patient was taken to the endoscopy suite and laid on their left side. Anesthesia was given which was tolerated well. We performed a timeout and we are in agreement I started the procedure. A well-lubricated endoscope was gently and carefully advanced down the esophagus, into the stomach the scope was and through the pylorus into the duodenum. The scope was then slowly withdrawn with the above-noted findings/interventions. The patient tolerated the procedure well and was then turned for colonoscopy (see separate procedure note).
--- NOTE | 2024-01-26 11:23 | STOM_PTH ---
PATIENT: Caryl Hager LOC: [facility] U#:[id number] AGE/SX: 43/F ROOM: RE01/26/[address]: Bridger Randolph : 1980 BED: DIS: 01/26/2024 SPEC #: [id number] RECD: 01/26/24 13:02 STATUS: [facility] #: [id number] HITESH: 01/26/24 11:[address]: Bridger Ranodlph DEPT: Surgical Specimen RECD BY: Concetta Guevara ENTERED: 01/26/24 13:04 SP TYPE: STOMACH OTHR DR: Do Parisi APRN Tissues: 1 - STOMACH BIOPSY 2 - STOMACH BIOPSY 3 - STOMACH BIOPSY 4 - ESOPHAGUS BIOPSY Procedures: GROSS AND MICRO LEVEL 4 Comments: [id number]
[2024-01-26 11:50] VITALS: BP 110/84; PULSE 83; RESP 17; TEMP 36.3; O2SAT 96
--- NOTE | 2024-01-26 11:57 | W.ANESPOSTOP ---
Postoperative Evaluation Date, Time and Location Date Performed: 01/26/24 Time Performed: 11:57 Patient Location: Day Surgery Unit Vital Signs Most Recent Imported Vital Signs: Most Recent Vital Signs Temp Pulse Resp BP Pulse Ox 36.6 C 98 H 20 119/86 97 01/26/24 10:03 01/26/24 10:03 01/26/24 10:03 01/26/24 10:03 01/26/24 10:03 Assessment Mental Status: Awake (Alert & Oriented to Patient Baseline) Airway and Respiratory Function: Patent airway with normal (patient baseline) respiratory exam Cardiovascular Function: Hemodynamically Stable Hydration Status: Adequately Hydrated Nausea & Vomiting: No Nausea or Vomiting Pain: Pt. Denies Any Pain Peripheral Nerve Block: Patient did not receive a nerve block
[2024-01-26] MEDS: Hyoscyamine 0.125 MG SL/ORAL/CHEW SL (11:59)
[2024-01-26 12:17] VITALS: BP 108/83; PULSE 83; RESP 17; TEMP 36.5; O2SAT 99
== END 2024-01-26 12:31 | disposition home or self-care (01) ==
LOC: SUR 09:19
PROVIDERS: PCP Nurse Practitioner Adult Health; Visit Provider Student in an Organized Health Care Education/Training Program
PROC: (CPT 43239; principal; 2024-01-26 10:30)
DX: R10.9 Unspecified abdominal pain (principal); Z12.11 Encounter for screening for malignant neoplasm of colon; K44.9 Diaphragmatic hernia without obstruction or gangrene; K29.70 Gastritis, unspecified, without bleeding; K64.0 First degree hemorrhoids; K31.9 Disease of stomach and duodenum, unspecified
CPT/HCPCS: 43239; 45378; 123; 81025; 88305; 00123; J2001; J2704; J3490

== ENCOUNTER 2024-02-19 01:06 | Outpatient (CLI) | payer MEDICARE, SELFPAY ==
--- OUTSIDE RECORDS SUMMARY | 2024-02-19 01:07 | XMS_ITS | Clinical Summary ---
Author Organization [facility] Address [facility] [place] [place] [address] Care Team Providers Care Packing Line Operator Name Role Phone Aneta Perez Primary Care Provider [phone] Allergies Active Allergy Reactions Criticality Noted Date [...] (09/06/2020): Added automatically from request for surgery [id number] Other specified diabetes gennaro litus with other specified complication 08/18/2020 Chronic pain of both knees 08/18/2020 Tendon rupture of wrist 02/16/2020 Overview (02/16/2020): Added automatically from request for surgery [id number] Tendon dysfunction 10/06/2019 Rheumatoid arthritis involvi ng [...] Breast Cancer screening 2021 Covid-19 Vaccine ( season) 2024 Influenza (Flu) vaccine (1 o f 1 - Influenza standard series) 01/31/2024 Procedures Procedure Name Priority Date/Time Associated Diagnosis Comments HC HEMOGLOBIN A1C Routine 04/11/2020 1:1 0 PM EST Other specified diabetes mellitus with other specified complication, unspecified whether manager terminal insulin use COMPREHENSIVE METABOLIC PANEL Routine 04/11/2020 1:10 PM EST High risk medication use Rheumatoid arthritis involving multiple sites with positive rheumatoid factor Other specified diabetes mellitus with other specified complication, unspecified whether manager terminal insulin use from Last 3 Months or Most Recently Relevant to Health Maintenance Results * (ABNORMAL) Hemoglobin A1c (04/11/2020 1:10 PM EST) Hemoglobin A1c 7.5(H) 4.3 - 5.6 % [facility] Comment: Reference Range: 4.3 - 5.6% [...] Mellitus, Diabetes Care 2013; 36: Suppl. 1, L77-59 Estimated Average Glucose 168 mg/dL [facility] Comment: eAG equivalents for [...] into estimated average glucose values. ??Diabetes Care 2008:31(8):5376-1895. Blood specimen (specimen) 04/11/2020 1:10 PM EST 04/11/2020 1:15 PM EST Narrative Resulting Agency Comment Spec In Lab Zak Lee MD CHEMISTRY ORDERAB LES [facility] [place] [address] * (ABNORMAL) Comprehensive metabolic panel (non-fasting) (04/11/2020 1:10 PM EST) Glucose 312(H) 65 - 199 mg/dL [facility] Comment:Diabetes: >=200 mg/d L plus symptoms Blood Urea Nitrogen 10 8 - 18 mg/dL [facility] Creatinine 0.81 0.70 - 1.20 mg/dL [facility] Sodium 136 135 - 145 mmol/L [facility] Potassium 3.9 3.5 - 5.0 mmol/L [facility] Comment: Please note: ??Patients with WBC >100,000 may have falsely elevated Potassium levels. ??For accurate Potassium quantification in these patients send serum separator tube (gold top) for subsequent determinations. ??Contact the Clinical Chemistry Laboratory if there are any questions. Chloride 99 98 - 107 mmol/L [facility] Carbon Dioxide 21(L) 22 - 31 mmol/L [facility] Anion Gap 16(H) 5 - 15 mmol/L [facility] Calcium 9.7 8.5 - 10.5 mg/dL [facility] Protein, Total 8.1(H) 6.1 - 8.0 gm/dL [facility] Albumin 4.6 3.2 - 5.2 gm/dL [facility] Aspartate Aminotransferase 12 0 - 30 unit/L [facility] Alanine Aminotransferase 24 0 - 30 unit/L [facility] Alkaline Phosphatase 148(H) 35 - 105 unit/L [facility] Bilirubin, Total 0.2 0.2 - 1.3 mg/dL [facility] Est Glomerular Filtration Rate 92 >=60 mL/min/1. 73 m?? [facility] Comment: The eGFR was calculated using the CKD-EPI equation. As with all creatinine based estimates of kidney function, eGFR values calculated with the CKD-EPI equation are not accurate in patients with acute kidney failure, extremes of body mass or the acutely ill. [email or web address] eGFR 107 >=60 mL/min/1. 73 m?? [facility] Comment: The eGFR was calculated using the CKD-EPI equation. As with all creatinine based estimates of kidney function, eGFR values calculated with the CKD-EPI equation are not accurate in patients with acute kidney failure, extremes of body mass or the acutely ill. [email or web address] Blood specimen (specimen) 04/11/2020 1:10 PM EST 04/11/2020 1:15 PM EST Narrative Resulting Agency Comment Spec In Lab Zak Lee MD [place] [address] from Last 3 Months or Most Recently Relevant to Health Maintenance Care Teams Packing Line Operator Relationship Specialty Start Date End Date Aneta Perez PA [address] [place] [id number] PCP - General Family Medicine 10/17/19
--- OUTSIDE RECORDS SUMMARY | 2024-02-19 01:07 | XMS_ITS | Encounter Summary ---
[place] [address] Care Team Providers Care Senior Risk Manager Name Role Phone Aneta Perez Primary Care Provider [phone] Reason for Visit * Reason Onset Date Comments Medication Problem 01/09/2023 Encounter Details Date Type Department Care Team (Late st Contact Info) Description 01/09/2023 [place] [phone] Juan Manuel Sapp grey stock recorder Problem Social History Tobacco Use Types Packs/Day [...] AM EDT Call received from Lubna @ [facility] stating she is having problems getting any information on infusions for patient after leaving several messages for Rheumatology staff. Lubna states that she was never advised this patient was changed to [facility] for Rituxan infusions, states she place 5 calls and no one ever called her back. documented in this encounter Plan of Treatment Not on file documented as of this encounter Visit Diagnoses Not on filedocumented in this encounter Care Teams Senior Risk Manager Relationship Specialty Start Date End Date Aneta Perez PA [address] [place] [address] PCP - General Family Medicine 10/17/19 documented as of this encounter
--- OUTSIDE RECORDS SUMMARY | 2024-02-19 01:07 | XMS_ITS | Encounter Summary ---
Author Organization [facility] [place] [address] Care Team Providers Care Salad Counter Attendant Name Role Phone Aneta Perez Primary Care Provider [phone] Encounter Details Date Type Department Care Team [...] on filedocumented in this encounter Care Teams Salad Counter Attendant Relationship Specialty Start Date End Date Aneta Perez PA [address] [place] [address] PCP - General Family Medicine 10/17/19 documented as of this encounter
--- OUTSIDE RECORDS SUMMARY | 2024-02-19 01:07 | XMS_ITS | Encounter Summary ---
[place] [address] Care Team Providers Care Garment Fitter Name Role Phone Aneta Perez Primary Care Provider [phone] Encounter Details Date Type Department Care Team (Late st Contact Info) Description 09/26/2022 [place] [phone] Krissy De Leon RN Social History Tobacco [...] were not included. Zak Lee MD to [facility] Rheumatology Nurse ?? [...] the results from labs and X-rays from [place]. Patient would like to know if any changes needed based on results. Message sent to Dr Lee to review. * Telephone Encounter - Krissy De Leon RN - 09/26/2022 4:51 PM EDT TC from patient asking for the results of the labs/xrays done [place]. Message sent to Dr Lee/executive legal secretary for results. documented in this encounter Plan of Treatment Not on file documented as of this encounter Visit Diagnoses Not on filedocumented in this encounter Care Teams Garment Fitter Relationship Specialty Start Date End Date Aneta Perez PA [address] [place] [address] PCP - General Family Medicine 10/17/19 documented as of this encounter
--- OUTSIDE RECORDS SUMMARY | 2024-02-19 01:07 | XMS_ITS | Encounter Summary ---
Author Organization [facility] [place] [address] Care Team Providers Care Silver Lap Machine Tender Name Role Phone Aneta Perez Primary Care Provider [phone] Encounter Details Date Type Department Care Team (Late st Contact Info) Description 01/14/2023 Telephone [place] [phone] Juan Manuel Sapp RN Social History Tobacco [...] This patient did not show for appointment [facility] or at [facility] in [facility]. I am notifying you. I wrote a note in EDH. NOTE ABOVE BY ZACARIAS ARBOLEDA RN documented in this encounter Plan of Treatment Not on file documented as of this encounter Visit Diagnoses Not on filedocumented in this encounter Care Teams Silver Lap Machine Tender Relationship Specialty Start Date End Date Aneta Perez PA [address] [place] [address] [id number] PCP - General Family Medicine 10/17/19 documented as of this encounter
--- OUTSIDE RECORDS SUMMARY | 2024-02-19 01:07 | XMS_ITS | Encounter Summary ---
Author Organization [facility] [place] [address] Care Team Providers Care Radiopharmacist Name Role Phone Aneta Perez Primary Care Provider [phone] Encounter Details Date Type Department Care Team (Late st Contact Info) Description 09/05/2022 Telephone [place] [phone] Krissy De Leon RN Social History Tobacco [...] her for a rituximab infusion up in [facility]. Would you please contact their infusion [...] on filedocumented in this encounter Care Teams Radiopharmacist Relationship Specialty Start Date End Date Aneta Perez PA [address] [place] [address] PCP - General Family Medicine 10/17/19 documented as of this encounter
--- OUTSIDE RECORDS SUMMARY | 2024-02-19 01:07 | XMS_ITS | Encounter Summary ---
[place] [address] Care Team Providers Care Rooming House Inspector Name Role Phone Aneta Perez Primary Care Provider [phone] Encounter Details Date Type Department Care Team (Late st Contact Info) Description 11/25/2022 Telephone [place] [phone] Krissy De Leon RN Social History Tobacco [...] 12/04/2022 11:16 AM EDT Reaching out to [place] for last infusion note. Will send to [facility] at [phone] once I get it to get it scheduled at [facility] for pt. * Telephone Encounter - Krissy De Leon RN - 11/25/2022 4:20 PM EDT Call from [facility] Infusion asking for the dates of the last Infusion of Rituxam/Ruxience and if a PA is required? Has infusions every 4 months? Perla asking for call back with the information at [phone]. Message sent to Tamara Domingo, Applique Cutter who handles infusions. documented in this encounter Plan of Treatment Not on file documented as of this encounter Visit Diagnoses Not on filedocumented in this encounter Care Teams Rooming House Inspector Relationship Specialty Start Date End Date Aneta Perez PA [address] [place] [address] PCP - General Family Medicine 10/17/19 documented as of this encounter
--- OUTSIDE RECORDS SUMMARY | 2024-02-19 01:07 | XMS_ITS | Encounter Summary ---
Author Organization [facility] [place] [address] Care Team Providers Care Supply Chain Tech Name Role Phone Aneta Perez Primary Care Provider [phone] Encounter Details Date Type Department Care Team (Late st Contact Info) Description 01/14/2023 Notes Only [address] [place] [address] Funmi Parker RN Social History [...] Parker RN - 01/14/2023 10:47 AM EDT [facility] Outreach Treatment Note - [place] Babitaabhijit Hager [phone] Allergies Allergen Reactions Milk Other (See [...] answer/voicemail left 1050-No return call from patient, [facility] Enrique Corado MD/Zak carrasco, Juan Manuel Juarez RNnotified & patient removed from schedule. documented in this encounter Plan of Treatment Not on file documented as of this encounter Visit Diagnoses Not on filedocumented in this encounter Care Teams Supply Chain Tech Relationship Specialty Start Date End Date Aneta Perez PA [address] [place] [address] PCP - General Family Medicine 10/17/19 documented as of this encounter
--- OUTSIDE RECORDS SUMMARY | 2024-02-19 01:07 | XMS_ITS | Data Portability ---
Author Organization [place] [facility] [place] [address] Care Team Providers Care Custom Protection Officer Name Role Phone SUJATA OCASIOSSICA Primary Care Provider [phone] Assessment No assessment recorded. Plan of Treatment Reminders Order Date Submit Date Provider Last Modified By Organization Details Last Modified Time Details Appointments None recorded. Lab urinalysis, dipstick [email or web address], [facility] [address], [address], 4 15:06:32 test, urine [email or web address], [address], [address], 4 15:06:32 bacterial vaginosis + vaginitis panel, vaginal 2023 024 ALONZO [facility] (Registration ), [address] [place] [address] [place], [address], 4 13:55:37 urinalysis, dipstick [email or web address], [facility] [address], [address], 4 16:23:38 bacterial vaginosis + vaginitis panel, vaginal 2023 [facility] (Registration ), [address] [place] [address] [place], [address], 4 10:13:57 CT + NG RNA, PCR, unspecified specimen 2023 [facility] (Registration ), [address] [place] [address] [place], [address], 4 08:58:36 influenza virus A + B + SARS-CoV-2 (COVID19) Ag panel, rapid IA, upper respiratory specimen 2023 024 [email or web address] [facility], [address] [place] [address], [facility], [place], [address], 4 18:02:42 rapid strep group A, throat 2023 024 [facility], [address] [place] [address], [address], [place], [address], 4 18:02:43 Referral None recorded. Procedures None recorded. Surgeries None recorded. Imaging None recorded. Medication Orders azithromyci n 250 mg tablet 2023 [facility], [address] [place], [address], 4 18:02:42 Patient TargetsNo targets recorded. Patient Instructions Encounter Date Encounter Id Patient Instructions Last Modified By Organization Details Last Modified Time 07/17/2023 [id number] 1. Today we did a vaginal exam and I sent 2 swabs for testing. I will have the vaginal pathogen screen back tomorrow and I will communicate those results as soon as we are available to do so. This test is for yeast, bacterial vaginosis and trichomonas. 2. The other test was for gonorrhea chlamydia. That is a send out to [facility] and back and does take an additional few days. As soon as that returns we will communicate results to you as well. [email or web address] Not available 07/17/2023 16:29:58 09/14/2023 [id number] strep throat: care instructions [email or web address] Not available 09/14/2023 18:10:40 Reason for Referral None Reported. Results Created Date Observation Date Name Description Value Unit Range Abnormal Flag Note LastModifiedBy Organization Detail LastModifiedTime 07/15/19 24 07/15/2023 VAGIN AL PATHO GEN SCREE N vaginal pathogen screen Vagin al Patho gen Scree n MADDY DA NEGAT YOSEF GARDN ERELL A NEGAT YOSEF TRICH OMONA S NEGAT YOSEF Not Available [facility] (Registration ) [address] [place] [address] Dr, [place], [address], 07/15/2023 22:40:20 07/15/19 24 07/15/2023 urina lysis , dipst ick Leukocytes Modera te Not Available [address], [address], 07/15/2023 14:39:24 07/15/19 24 07/15/2023 urina lysis , dipst ick Nitrite negati ve Not Available [address], [address], 07/15/2023 14:39:24 07/15/19 24 07/15/2023 urina lysis , dipst ick Urobilinogen .2 Not Available [address] [address], [place], [address], 07/15/2023 14:39:24 07/15/19 24 07/15/2023 urina lysis , dipst ick Protein Negati ve Not Available [address] [address], [place], [address], 07/15/2023 14:39:24 07/15/19 24 07/15/2023 urina lysis , dipst ick pH 5.0 Not Available [address], [place], [address], 07/15/2023 14:39:24 07/15/19 24 07/15/2023 urina lysis , dipst ick Blood Negati ve Not Available [address], [place], [address], 07/15/2023 14:39:24 07/15/19 24 07/15/2023 urina lysis , dipst ick Specific [place] 1.005 Not Available Fernanda [address], [place], [address], 07/15/2023 14:39:24 07/15/19 24 07/15/2023 urina lysis , dipst ick Ketone Negati ve Not Available [address], [place], [address], 07/15/2023 14:39:24 07/15/19 24 07/15/2023 urina lysis , dipst ick Bilirubin Negati ve Not Available [address], [place], [address], 07/15/2023 14:39:24 07/15/19 24 07/15/2023 urina lysis , dipst ick Glucose Negati ve Not Available [address], [place], [address], 07/15/2023 14:39:24 07/15/19 24 07/15/2023 urina lysis , dipst ick Appearance Clear Not Available Isha ramos [address], [place], [address], 07/15/2023 14:39:24 07/15/19 24 07/15/2023 urina lysis , dipst ick Color Yellow Not Available [address], [place], [address], 07/15/2023 14:39:24 07/15/19 24 07/15/2023 pregn alex test, urine HCG negati ve Not Available [address], [place], [address], 07/15/2023 14:39:25 07/17/19 24 07/17/2023 VAGIN AL PATHO GEN SCREE N vaginal pathogen screen abnormal Vagin al Patho gen Scree n MADDY DA NEGAT YOSEF GARDN ERELL A NEGAT YOSEF TRICH OMONA S POSIT YOSEF Not Available [facility] (Registration ) [address] [place] [address] [place], [address], 07/17/2023 23:09:00 07/17/19 24 07/19/2023 CHLAM YDIA/ GC AMPLI FIED RNA chlamydia result Negati ve negati ve Sourc e:VAG INAL Test perfo rmed or refer red by [facility] [address] [facility] [place] [address] Not Available [facility] (Registration ) [address] [place] [address] [place], [address], 07/20/2023 08:48:10 07/17/19 24 07/19/2023 CHLAM YDIA/ GC AMPLI FIED RNA GC result Negati ve negati ve Not Available [facility] (Registration ) [address] [place] [address] [place], [address], 07/20/2023 08:48:10 07/17/19 24 07/17/2023 urina lysis , dipst ick Leukocytes Large Not Available [address], [place], [address], 07/17/2023 15:40:32 07/17/19 24 07/17/2023 urina lysis , dipst ick Nitrite negati ve Not Available [address], [place], [address], 07/17/2023 15:40:32 07/17/19 24 07/17/2023 urina lysis , dipst ick Urobilinogen .2 Not Available [address], [place], [address], 07/17/2023 15:40:32 07/17/19 24 07/17/2023 urina lysis , dipst ick Protein Trace Not Available [address], [place], [address], 07/17/2023 15:40:32 07/17/19 24 07/17/2023 urina lysis , dipst ick pH 5.0 Not Available [address], [place], [address], 07/17/2023 15:40:32 07/17/19 24 07/17/2023 urina lysis , dipst ick Blood Small Not Available [address], [place], [address], 07/17/2023 15:40:32 07/17/19 24 07/17/2023 urina lysis , dipst ick Specific [place] 1.005 Not Available [address], [place], [address], 07/17/2023 15:40:32 07/17/19 24 07/17/2023 urina lysis , dipst ick Ketone Negati ve Not Available [address], [place], [address], 07/17/2023 15:40:32 07/17/19 24 07/17/2023 urina lysis , dipst ick Bilirubin Negati ve Not Available [address], [place], [address], 07/17/2023 15:40:32 07/17/19 24 07/17/2023 urina lysis , dipst ick Glucose 250 Not Available [address], [place], [address], 07/17/2023 15:40:32 07/17/19 24 07/17/2023 urina lysis , dipst ick Appearance Cloudy Not Available [address], [place], [address], 07/17/2023 15:40:32 07/17/19 24 07/17/2023 urina lysis , dipst ick Color Yellow Not Available [address], [place], [address], 07/17/2023 15:40:32 09/14/19 24 09/14/2023 influ olivia virus A + B + SARS- CoV-2 (COVI D19) Ag panel , rapid IA, upper respi rator y speci men Influenza A negati ve Not Available [address], [place], [address], 09/14/2023 17:39:51 09/14/19 24 09/14/2023 influ olivia virus A + B + SARS- CoV-2 (COVI D19) Ag panel , rapid IA, upper respi rator y speci men Influenza B negati ve Not Available [address], [place], [address], 09/14/2023 17:39:51 09/14/19 24 09/14/2023 influ olivia virus A + B + SARS- CoV-2 (COVI D19) Ag panel , rapid IA, upper respi rator y speci men SARS-COV-2 negati ve Not Available [address], [place], [address], 09/14/2023 17:39:51 09/14/19 24 09/14/2023 rapid strep group A, throa t Strep positi ve Not Available [address], [place], [address], 09/14/2023 17:40:19 Result Notes None recorded. Problems Name Problem SNOMED Code Status Onset Date Resolution Date Notes Provider Name and Address Organization Details Recorded Time Otitis externa of right ear 51872122442 53840 Active 2020 Problem Code: H60.91; Problem Code Type: ICD-10; Not Available [facility] 3 06:00:40 Acute sinusiti s 24969746 Active 2021 Problem Code: J01.90; Problem Code Type: ICD-10; Not Available [facility] 3 06:00:40 Disorder of nasal sinus 3777599 Active 2022 Not Available [facility] 3 06:00:40 Noninfla mmatory disorder of the vagina 97511235 Completed 202202/27/2023 Problem Code: N89.8; Problem Code Type: ICD-10; Not Available [facility] 3 06:00:40 Acute vaginiti s 63960686 Completed 202202/03/2023 Problem Code: N76.0; Problem Code Type: ICD-10; Not Available [facility] 3 06:00:41 Vaginal discharg e 255431646 Active [address], [place], [address] , [place] [facility] 4 16:45:08 Problem Notes None recorded. Medical Equipment None Reported. Allergies Allergen ID Allergen Name Allergen Category Reaction Reaction Severity Criticality Documentation Date Start Date Code Code System Note Provider Name and Address Organization Details Recorded Time 28702 amoxicill in trihydrat e medicatio n rash mild Not available 04/10/20232020 89941 8 RxNodavy Pabon RN null, [facility] 4 14:32:51 86048 Medicinal product containin g penicilli n and acting as antibacte rial agent (product) medicatio n rash mild Not available 04/10/20232020 32057 05 SNOMED Bethany Pabon RN null, [facility] 4 14:32:48 43185 codeine medicatio n hallucina tions severe Not available 04/10/20232020 2670 RxNodavy Pabon RN null, [facility] 4 14:32:43 10852 naproxen medicatio n other mild low 07/15/2023 7258 RxNorm Ulcer s Bethany Pabon RN null, [facility] 4 14:33:13 Medications Name Sig [...] propionate 50 mcg/actuati on nasal spray,suspe nsion [place] 1 spray into both nostrils twice a [...] Updated DateTime 4 162.56 cm 27.5 kg/m2 66234.7 8 g 97.7 [degF] 17 /min 99 % 99 % 97 /min 127 mm[Hg] 88 mm[Hg] Bethnay Pabon RN [facility] 14:32:26 Date Recorded Body height Body mass index (BMI) Body weight Respiratory rate Oxygen saturation Oxygen saturation in Arterial blood by Pulse oximetry Heart rate Body temperature Systolic blood pressure Diastolic blood pressure Provider Name and Address Organization Details Last Updated DateTime 4 162.56 cm 27.5 kg/m2 46934.7 8 g 20 /min 98 % 98 % 96 /min 97.7 [degF] 123 mm[Hg] 88 mm[Hg] Jerman Sargent MA [facility] 4 15:38:40 Date Recorded Body height Body mass index (BMI) Body weight Body temperature Oxygen saturation Oxygen saturation in Arterial blood by Pulse oximetry Heart rate Respiratory rate Systolic blood pressure Diastolic blood pressure Provider Name and Address Organization Details Last Updated DateTime 4 162.56 cm 26.9 kg/m2 75140 g 98.5 [degF] 99 % 99 % 97 /min 18 /min 109 mm[Hg] 73 mm[Hg] Alie Dudley MA [facility] 4 17:19:54 Social History Question Answer Notes LastModified by Organizat ion Details LastModified Time Tobacco Smoking Status Current Every Day Smoker Bethany Pabon RN [facility], [facility] 07/15/2023 14:35:48 What Was The [...] Tdap 04/20/2014 completed Not Available [facility] 06:11:15 pneumococcal polysaccharide PPV23 04/01/2021 completed Not Available [facility] 2022 06:11:16 influenza, unspecified formulation 06/30/2022 completed Not Available [facility] 04/10/2023 06:11:16 influenza, unspecified formulation 02/27/2023 completed Bethany Pabon RN [facility], [facility] 07/15/2023 14:18:05 Past Encounters Encounter ID Performer Location Encounter Start Date Encounter Closed Date Diagnosis/Indication Diagnosis SNOMED-CT Code Diagnosis ICD10 Code [id number] TOI KING [address] [place] [address] 07/15/2023 14:12:42 07/15/2023 15:37:29 Vaginal irritation 205486171 N89.8 [id number] JOON PERAZA PA-C [address] [place] [address] 07/17/2023 14:14:57 07/17/2023 16:33:37 Vaginal discharge 169077333 N89.8 [id number] TOI KING [address] [place] [address] 09/14/2023 16:51:45 09/14/2023 18:36:33 Streptococcal sore throat 57296756 J02.0 Health Concerns Section Related Observation LastModified by Organization Detai ls LastModified Time None Recorded Concern Status LastModified by Organization Details LastModified Time None Recorded Advance Directives Directive None Recorded Payers Encounter Date Sequence Insurance Name Policy Number Policy Dup[place] Covered Member ID [place] Member ID Guarantor Name 07/15/2023 1 [place] [employer] Bobbijo L Fissette [id number] 2 Bobbijo Fissette 07/17/2023 1 [place] [employer] Bobbijo L Fissette [id number] 2 Bobbijo Fissette 09/14/2023 1 [place] [facility] Bobbijo L Fissette [id number] 2 Bobbijo Fissette Notes Date Note Type Note Provider [...] Flagyl treatment. TOI KING [address], [place], [address], [facility]. 07/15/2023 15:22:46 07/17/2023 text/html HPI [...] testing. JOON PERAZA PA-C [address], [place], [address], [facility]. 07/17/2023 16:45:26 09/14/2023 text/html HPI [...] she reports a history of sinus infections. TOI KING [address], [place], [address], [facility], [facility]. 09/14/2023 18:11:23 OBGyn Episode No OBEpisode recorded.
--- OUTSIDE RECORDS SUMMARY | 2024-02-19 01:07 | XMS_ITS | Encounter Summary ---
Author Organization [facility] [place] [address] Care Team Providers Care Drywall Installer Name Role Phone Aneta Perez Primary Care Provider [phone] Encounter Details Date Type Department Care Team (Late st Contact Info) Description 09/30/2022 Tele[place] [address] Krissy De Leon RN Social History Tobacco [...] and status of infusions from Facility up [place]. Asked the patient to return my call. documented in this encounter Plan of Treatment Not on file documented as of this encounter Visit Diagnoses Not on filedocumented in this encounter Care Teams Drywall Installer Relationship Specialty Start Date End Date Aneta Perez PA [address] [place] [address] PCP - General Family Medicine 10/17/19 documented as of this encounter
--- OUTSIDE RECORDS SUMMARY | 2024-02-19 01:08 | XMS_ITS | Encounter Summary ---
Author Organization [facility] Address [facility] [place] [address] Care Team Providers Care Gang Bore Operator Name Role Phone Aneta Perez Primary Care Provider [phone] Reason for Visit * Occupational Therapy (Routine) - Closed Specialty Diagnoses / Procedures Referred By Roberto palomares Referred To Contact Occupational Therapy Diagnoses Surgery follow-up Surgery follow-up Procedures Evaluate and Treat Ulises Parry MD [facility] [place] [address] [facility] [address] [place] [address] Referral ID Status Reason Start Date Expiration Date V isits Requested Visits Authorized [id number] Closed Evaluate and Treat 09/06/2020 09/06/2021 30 30 Encounter Details Date Type Department Care Team (Late st Contact Info) Description 10/03/2020 10:30 AM EDT Office Visit Occupational Therapy at [facility] [address] [place] [address] Tucker Wiggins OT [facility] PHYSICAL MEDICINE & [place] [address] Pain in finger of left [...] facility and has received OT from [facility]. The MD will set up an [...] limb documented in this encounter Care Teams Gang Bore Operator Relationship Specialty Start Date End Date Aneta Perez PA [address] [place] [address] PCP - General Family Medicine 10/17/19 documented as of this encounter
--- OUTSIDE RECORDS SUMMARY | 2024-02-19 01:08 | XMS_ITS | Encounter Summary ---
Author Organization [facility] [place] [address] Care Team Providers Care Surgical Garment Assembly Supervisor Name Role Phone Aneta Perez Primary Care Provider [phone] Reason for Referral * Consultation (Routine) - Closed Specialty Diagnoses / Procedures Referred By Roberto t Referred To Contact [facility] Diagnoses Trigger middle finger of left hand (concepcion) pending rheumatology appt Ulises Parry MD [facility] [place] [address] [facility] [place] [address] Referral ID Status Reason Start Date Expiration Date V isits Requested Visits Authorized [id number] Closed Consult, Test & Treat 07/25/2020 07/25/2021 1 1 * Occupational Therapy (Routine) - Closed Specialty Diagnoses / Procedures Referred By Roberto palomares Referred To Contact Occupational Therapy Diagnoses Trigger middle finger of left hand Ulises Parry MD [facility] [place] [address] [facility] Re[facility] Ot [address] [place] [address] Referral ID Status Reason Start Date Expiration Date V isits Requested Visits Authorized [id number] Closed Evaluate and Treat 07/25/2020 07/25/2021 30 30 Reason for Visit * Reason Comments Follow-up left hand contractur e Encounter Details Date Type Department Care Team (Late st Contact Info) Description 07/25/2020 8:30 AM EST Office Visit Plastic Surgery at [facility] [address] [place] [address] Ulises Parry MD [facility] [place] [address] Trigger middle finger of left hand Social [...] have a follow up appt with her Seed Cleaning Machine Operator, and I will make a referral to [...] (acquired) documented in this encounter Care Teams Surgical Garment Assembly Supervisor Relationship Specialty Start Date End Date Aneta Perez PA [address] [place] [address] PCP - General Family Medicine 10/17/19 documented as of this encounter
--- OUTSIDE RECORDS SUMMARY | 2024-02-19 01:08 | XMS_ITS | Encounter Summary ---
[place] [address] Care Team Providers Care Carbon Grinder Name Role Phone Aneta Perez Primary Care Provider [phone] Encounter Details Date Type Department Care Team (Late st Contact Info) Description 09/03/2022 Telephone [place] [phone] Lala Holloway Social History Tobacco Use Types [...] on filedocumented in this encounter Care Teams Carbon Grinder Relationship Specialty Start Date End Date Aneta Perez PA [address] [place] [address] PCP - General Family Medicine 10/17/19 documented as of this encounter
--- OUTSIDE RECORDS SUMMARY | 2024-02-19 01:08 | XMS_ITS | Encounter Summary ---
Author Organization [facility] Address [facility] [place] [address] Care Team Providers Care Link Wire Fabric Machine Operator Name Role Phone Aneta Perez Primary Care Provider [phone] Reason for Referral * Occupational Therapy (Routine) - Closed Specialty Diagnoses / Procedures Referred By Roberto palomares Referred To Contact Occupational Therapy Diagnoses Surgery follow-up DOS Pending Ulises Parry MD [facility] [place] [address] [facility] Ot [address] [place] [address] Referral ID Status Reason Start Date Expiration Date V isits Requested Visits Authorized [id number] Closed Evaluate and Treat 06/25/2022 06/25/2023 30 30 Reason for Visit * Consultation (Routine) - Closed Specialty Diagnoses / Procedures Referred By Roberto palomares Referred To Contact Plastic Surgery Diagnoses Rheumatoid arthritis involving multiple sites with positive rheumatoid factor Rupture of extensor tendon of hand, unspecified laterality, sequela LeeZak MD [facility] [place] [address] Ulises Parry MD [facility] [place] [address] Referral ID Status Reason Start Date Expiration Date V isits Requested Visits Authorized [id number] Closed Consult, Test & Treat 05/26/2022 05/26/2023 1 1 Encounter Details Date Type Department Care Team (Late st Contact Info) Description 06/25/2022 1:30 PM EST Office Visit Plastic Surgery at [address] [place] [address] Ulises Parry MD [facility] [place] [address] Surgery follow-up Social History Tobacco Use Types [...] encounter Patient Instructions * Patient Instructions* Lubna Edward RMA - 06/25/2022 1:30 PM EST Preoperative Instructions [...] brush. DO NOT wear any rings, nail andorran or artifical nails. The Same Day Surgery [...] to your surgery. Day of Surgery A lokie driver is required at time of discharge. [...] For questions pertaining to your surgical date [phone] For nursing related questions [phone] On weekends, holidays or after office hours: Call and ask the irrigating pump operator to page the Plastic Surgery Resident it applications analyst. documented in this encounter Progress Notes * [...] (mid-July) Procedure: kat reconstruction, redo FTP CPT: 65853, 95098 Surgical site: hand Side: left Anesthesia: Mac [...] surgery documented in this encounter Care Teams Link Wire Fabric Machine Operator Relationship Specialty Start Date End Date Aneta Perez PA [address] [place] [address] PCP - General Family Medicine 10/17/19 documented as of this encounter
--- OUTSIDE RECORDS SUMMARY | 2024-02-19 01:08 | XMS_ITS | Encounter Summary ---
Author Organization [facility] [place] [address] Care Team Providers Care Cement Fittings Maker Name Role Phone Aneta Perez Primary Care Provider [phone] Reason for Visit * Reason Onset Date Comments Letter Request From Patient 07/09/2021 Encounter Details Date Type Department Care Team (Late st Contact Info) Description 07/09/2021 [place] [phone] Juan Manuel Sapp, RN Letter Request From [...] a message. I sent Liset a [facility] message. Received a call, from [place] [employer] asking for a reconsideration of the letter [...] I spoke with Liset Mcmillan after the [employer] called and advised she neglected to tell me thisis what the letter was for. Liset Mcmillan said forget it and hung up on me. documented in this encounter Plan of Treatment Not on file documented as of this encounter Visit Diagnoses Not on filedocumented in this encounter Care Teams Cement Fittings Maker Relationship Specialty Start Date End Date Aneta Perez PA [address] [place] [address] PCP - General Family Medicine 10/17/19 documented as of this encounter
--- OUTSIDE RECORDS SUMMARY | 2024-02-19 01:08 | XMS_ITS | Encounter Summary ---
Author Organization [facility] [place] [address] Care Team Providers Care Pattern Carrier Name Role Phone Aneta Perez Primary Care Provider [phone] Encounter Details Date Type Department Care Team (Late st Contact Info) Description 07/11/2022 Telephone [place] [phone] Uzma Ocasio Social History Tobacco Use Types [...] filedocumented in this encounter Care Teams Pattern Carrier Relationship Specialty Start Date End Date Aneta Perez PA [address] [place] [address] PCP - General Family Medicine 10/17/19 documented as of this encounter
--- OUTSIDE RECORDS SUMMARY | 2024-02-19 01:08 | XMS_ITS | Encounter Summary ---
Author Organization [facility] [place] [address] Care Team Providers Care Supervisor Graphite Name Role Phone Aneta Perez Primary Care Provider [phone] Encounter Details Date Type Department Care Team (Late st Contact Info) Description 02/11/2021 Telephone [place] [phone] Juan Manuel Sapp RN Social History Tobacco [...] 02/11/2021 10:51 AM EDT Call received from [facility] Step down Unit asking if Liset [...] need to be faxed to facility @ [phone]. Rx Faxed REQUESTED. documented in this encounter Plan of Treatment Not on file documented as of this encounter Visit Diagnoses Not on filedocumented in this encounter Care Teams Supervisor Graphite Relationship Specialty Start Date End Date Aneta Perez PA [address] [place] [address] PCP - General Family Medicine 10/17/19 documented as of this encounter
--- OUTSIDE RECORDS SUMMARY | 2024-02-19 01:08 | XMS_ITS | Encounter Summary ---
Author Organization [facility] Address [facility] [place] [address] Care Team Providers Care Distribution Analyst Name Role Phone Aneta Perez Primary Care Provider [phone] Reason for Visit * Reason Comments Follow Up Surgery Encounter Details Date Type Department Care Team (Late st Contact Info) Description 08/20/2022 10:45 AM EDT Office Visit Plastic Surgery at [facility] [address] [place] [address] Ulises Parry MD [facility] [place] [address] Surgery follow-up Social History Tobacco Use Types [...] surgery documented in this encounter Care Teams Distribution Analyst Relationship Specialty Start Date End Date Aneta Perez PA [address] [place], [place] [id number] PCP - General Family Medicine 10/17/19 documented as of this encounter
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
--- OUTSIDE RECORDS SUMMARY | 2024-02-19 01:08 | XMS_ITS | Encounter Summary ---
Author Organization [facility] [place] [address] Care Team Providers Care Care Transition Mgr Name Role Phone Aneta Perez Primary Care Provider [phone] Encounter Details Date Type Department Care Team (Late st Contact Info) Description 07/25/2021 [place] [phone] Juan Manuel Sapp RN Social History Tobacco [...] PM EST Liset calls to advise that [facility] does not have her infusion and they were advised it will not be delivered until next Thursday. Wants Rheumatology to do something about this. RTC to Liset and the infusion arrived today sooner than expected. documented in this encounter Plan of Treatment Not on file documented as of this encounter Visit Diagnoses Not on filedocumented in this encounter Care Teams Care Transition Mgr Relationship Specialty Start Date End Date Aneta Perez PA [address] [place] [address] PCP - General Family Medicine 10/17/19 documented as of this encounter
--- OUTSIDE RECORDS SUMMARY | 2024-02-19 01:08 | XMS_ITS | Encounter Summary ---
Author Organization [facility] [place] [address] Care Team Providers Care Dual Rate Supervisor Name Role Phone Aneta Perez Primary Care Provider [phone] Encounter Details Date Type Department Care Team ([facility] st Contact Info) Description 08/17/2020 External Results [place] [address] Zak Lee MD [facility] [place] [address] Social History Tobacco Use Types Packs/Day Years [...] on filedocumented in this encounter Care Teams Dual Rate Supervisor Relationship Specialty Start Date End Date Aneta Perez PA [address] [place] [address] PCP - General Family Medicine 10/17/19 documented as of this encounter
--- OUTSIDE RECORDS SUMMARY | 2024-02-19 01:08 | XMS_ITS | Encounter Summary ---
Author Organization [facility] [place] [address] Care Team Providers Care Sales And Marketing Manager Name Role Phone Aneta Perez Primary Care Provider [phone] Reason for Visit * Auth/Cert (Routine) Specialty [...] EACH MUSCLE (WRVU 5.5) Ulises Parry MD [facility] [place] [address] [facility] Referral ID Status Reason Start Date Expiration Date Visits Re quested Visits Authorized [id number] 1 1 Encounter Details Date Type Department Care Team (Late st Contact Info) Description 07/22/2022 9:55 AM EST - 07/22/2022 11:15 AM EST Surgery [place] [address] Ulises Parry MD [facility] [place] [address] TRANSFER OR TRANSPLANT TENDON, PALMAR, W/O FREE [...] closest emergency room or call the hospital cbx operator at [phone] and ask for physician resolute professional covering for your physician. Questions or problems after 5pm or on a weekend: Call the [facility] cbx operator at and ask for the physician resolute professional covering for your doctor. At 10:00 am [...] about scheduling, please contact our administrative officesat [phone] For clinical questions, please call our nurses at [phone] Both offices are open Thursday thru Thursday 8a - 5p. With emergencies after hours, call the hospital cbx operator at [phone] and ask for the Plastic Surgery Resident resolute professional. DISCHARGE INSTRUCTIONS CONTACT INFORMATION: During office hours (Thursday through Thursday 8 am to 5 pm): Call [phone]. On weekends or after hours: Call [phone] and ask the cbx operator to speak to the Plastic Surgery Resident on-call. FOLLOW-UP APPOINTMENTS: You follow-up appointment has been scheduled. Please call [phone] if you have not received a phone call or letter with your appointment in a timely fashion. Your follow-up has been scheduled: Future Appointments Date Time Provider Department Center 07/30/2022 2:30 PM Ulises Parry MD [facility] 07/30/2022 2:30 PM Shyanne Brar OT [facility] Rehab OT [facility] 11/25/2022 10:30 AM Zak Lee MD [facility] documented in this encounter [...] 8.6) performed by Monique Parry MD at [facility] ? ? PRO ADJ TISS XFER HEAD, FAC, HAND <10SQCM Left 10/01/2020 ADJ.TISSUE TRANSFER, REARRANGEMENT, 10SQ.CM OR LESS, HANDS (WRVU 8.6) performed by Monique Parry MD at [facility] ??? PRO HAND TENDON KETTY RECONST, GRAFT Left 10/01/2020 RECONSTRUCT TENDON KETTY, EA TENDON, W/ TENDON OR FASCIAL GRAFT (WRVU 7.31) performed by Ulises Parry MD at [facility] ? ? PRO TENOLYSIS FLEX TENDON, PALM & FINGER, EA Left 12/05/2019 TENOLYSIS, FLEXOR TENDON, PALM AND FINGER EACH (WRVU 9.75) performed by Ulises Parry MD at [facility] ??? PRO TENOLYSIS, FLEX TENDON, PALM/FINGER, EA Left 03/26/2020 TENOLYSIS, FLEXOR TENDON, PALM OR FINGER, EACH (WRVU 5.16) performed by Ulises Parry MD at [facility] ??? PRO TRANSPLANT FOREARM/WRIST TENDON Left 03/26/2020 TENDON TRANSPLANT OR TRANSFER, FOREARM &,OR WRIST, SINGLE; EA (WRVU 8.08) performed by Ulises Parry MD at [facility] History reviewed. No pertinent family [...] Operative Note Patient Name: Liset Hager : [id number] MR#: [id number] Case Date: 07/22/2022 Surgeon: Surgeon(s) and Role: [...] 07/30/2022 2:30 PM Ulises Parry MD [facility] 07/30/2022 2:30 PM Shyanne Brar OT [facility] Rehab [facility] 11/25/2022 10:[address] [facility] * Op Note - Ulises Parry MD - 07/22/2022 10:[address] [facility] Operative Note Patient Name: Liset Hager : [id number] MR#: [id number] Case Date: 07/22/2022 Surgeon: Surgeon(s) and Role: [...] Associated Diagnosis Comments Release Muscles Of Hand (36536) 07/22/2022 10:39 AM EST Surgery follow-up Transplant Palm Tendon (34350) 07/22/2022 10:39 AM EST Surgery follow-up POCT [...] POCT Fingerstick Glucose (07/22/2022 9:54 AM EST) Glucose, POC 83 60 - 199 mg/dl Comment:RN notified HH 07/22/2022 9:54 AM EST Ulises Parry MD POINT OF CARE TEST ORDERABLES * POCT Glucose (07/22/2022 9:34 AM EST) Glucose, POC 83 65 - 199 mg/dL [facility] Comment: Supplemental ranges: <140 mg/dL before meals <180 mg/dL all other times of the day Blood 07/22/2022 9:34 AM EST 07/22/2022 9:34 AM EST Ulises Parry MD POINT OF CARE TEST ORDERABLES [facility] [place] [address] documented in this encounter Visit Diagnoses Diagnosis [...] Routine documented in this encounter Care Teams Sales And Marketing Manager Relationship Specialty Start Date End Date Aneta Perez PA [address] [place] [address] PCP - General Family Medicine 10/17/19 documented as of this encounter
--- OUTSIDE RECORDS SUMMARY | 2024-02-19 01:08 | XMS_ITS | Encounter Summary ---
Author Organization [facility] Address [facility] [place] [address] Care Team Providers Care Material Planner Name Role Phone Antea Perez Primary Care Provider [phone] Reason for Visit * Occupational Therapy (Routine) - Closed Specialty Diagnoses / Procedures Referred By Roberto palomares Referred To Contact Occupational Therapy Diagnoses Trigger middle finger of left hand Ulises Parry MD [facility] [place] [address] [facility] Re[facility] Ot [address] [place] [address] Referral ID Status Reason Start Date Expiration Date V isits Requested Visits Authorized [id number] Closed Evaluate and Treat 07/25/2020 07/25/2021 30 30 Encounter Details Date Type Department Care Team (Late st Contact Info) Description 07/25/2020 8:30 AM EST Office Visit Occupational Therapy at [facility] [address] [place] [address] Tucker Wiggins OT [facility] PHYSICAL MEDICINE & [place] [address] Tendon dysfunction Social History Tobacco [...] With Activity: 0/10 Treatment Today: Orthosis - Mwvcq-Dzhw-Mbwwou Orthotic, Rigid, WO Jts, Custom Fit & Adj (Z5380) Educated patient in etiology and biomechanics as [...] bursa documented in this encounter Care Teams Material Planner Relationship Specialty Start Date End Date Aneta Perez PA [address] [place] [address] PCP - General Family Medicine 10/17/19 documented as of this encounter
--- OUTSIDE RECORDS SUMMARY | 2024-02-19 01:08 | XMS_ITS | Encounter Summary ---
Author Organization [facility] Address [facility] [place] [address] Care Team Providers Care Legal Archivist Name Role Phone Aneta Perez Primary Care Provider Encounter Details Date Type Department Care Team (Late st Contact Info) Description 07/30/2022 2:30 PM EST Office Visit Plastic Surgery at [facility] [address] [place] [address] Ulises Parry MD [facility] [place]LASTIC [place] [address] H/O hand surgery Social History Tobacco Use [...] organs documented in this encounter Care Teams Legal Archivist Relationship Specialty Start Date End Date Aneta Perez PA [address] [place] [address] PCP - General Family Medicine 10/17/19 documented as of this encounter
--- OUTSIDE RECORDS SUMMARY | 2024-02-19 01:08 | XMS_ITS | Encounter Summary ---
Author Organization [facility] Address [facility] [place] [address] Care Team Providers Care Work Checker Name Role Phone Aneta Perez Primary Care Provider [phone] Reason for Visit * Auth/Cert (Routine) Specialty [...] EACH MUSCLE (WRVU 5.5) Ulises Parry MD [facility] [place] [address] [facility] Referral ID Status Reason Start Date Expiration Date Visits Re quested Visits Authorized [id number] 1 1 Encounter Details Date Type Department Care Team (Latest Contact Info) Description 07/22/2022 8:45 AM EST - 07/22/2022 1:20 PM EST Hospital Encounter [place]patient [place] [address] Ulises Parry MD [facility] [place] [address] Surgery follow-up Discharge Disposition: Home Social History [...] closest emergency room or call the hospital transfer station operator at [phone] and ask for physician sanitation laborer covering for your physician. Questions or problems after 5pm or on a weekend: Call the [facility] transfer station operator at and ask for the physician sanitation laborer covering for your doctor. At 10:00 am [...] about scheduling, please contact our administrative officesat [phone] For clinical questions, please call our nurses at [phone] Both offices are open Thursday thru Thursday 8a - 5p. With emergencies after hours, call the hospital transfer station operator at [phone] and ask for the Plastic Surgery Resident sanitation laborer. DISCHARGE INSTRUCTIONS CONTACT INFORMATION: During office hours (Thursday through Thursday 8 am to 5 pm): Call [phone]. On weekends or after hours: Call [phone] and ask the transfer station operator to speak to the Plastic Surgery Resident on-call. FOLLOW-UP APPOINTMENTS: You follow-up appointment has been scheduled. Please call [phone] if you have not received a phone call or letter with your appointment in a timely fashion. Your follow-up has been scheduled: Future Appointments Date Time Provider Department Center 07/30/2022 2:30 PM Ulises Parry MD [facility] 07/30/2022 2:30 PM Shyanne Brar, [facility] OT [facility] 11/25/2022 10:30 AM Zak Lee MD [facility] documented in this encounter Medications at Time [...] 8.6) performed by Monique Parry MD at [facility] ? ? PRO ADJ TISS XFER HEAD, FAC, HAND <10SQCM Left 10/01/2020 ADJ.TISSUE TRANSFER, REARRANGEMENT, 10SQ.CM OR LESS, HANDS (WRVU 8.6) performed by Monique Parry MD at [facility] ??? PRO HAND TENDON KETTY RECONST, GRAFT Left 10/01/2020 RECONSTRUCT TENDON KETTY, EA TENDON, W/ TENDON OR FASCIAL GRAFT (WRVU 7.31) performed by Uilses Parry MD at [facility] ? ? PRO TENOLYSIS FLEX TENDON, PALM & FINGER, EA Left 12/05/2019 TENOLYSIS, FLEXOR TENDON, PALM AND FINGER EACH (WRVU 9.75) performed by Ulises Parry MD at [facility] ??? PRO TENOLYSIS, FLEX TENDON, PALM/FINGER, EA Left 03/26/2020 TENOLYSIS, FLEXOR TENDON, PALM OR FINGER, EACH (WRVU 5.16) performed by Ulises Parry MD at [facility] ??? PRO TRANSPLANT FOREARM/WRIST TENDON Left 03/26/2020 TENDON TRANSPLANT OR TRANSFER, FOREARM &,OR WRIST, SINGLE; EA (WRVU 8.08) performed by Ulises Parry MD at [facility] History reviewed. No pertinent family history. [...] Operative Note Patient Name: Liset Hager : [id number] MR#: [id number] Case Date: 07/22/2022 Surgeon: Surgeon(s) and Role: [...] Center 07/30/2022 2:30 PM Ulises Parry MD [facility] 07/30/2022 2:30 PM Shyanne Brar OT [facility] 11/25/2022 10:30 AM Zak Lee MD [facility] * Op Note - Ulises Parry MD - 07/22/2022 10:57 AM EST [facility] Operative Note Patient Name: Liset Hager : [id number] MR#: [id number] Case Date: 07/22/2022 Surgeon: Surgeon(s) and Role: [...] Associated Diagnosis Comments Release Muscles Of Hand (72667) 07/22/2022 10:39 AM EST Surgery follow-up Transplant Palm Tendon (68397) 07/22/2022 10:39 AM EST Surgery follow-up POCT [...] Glucose, POC 83 65 - 199 mg/dL [facility] Comment: Supplemental ranges: <140 mg/dL before meals <180 mg/dL all other times of the day Blood 07/22/2022 9:34 AM EST 07/22/2022 9:34 AM EST Ulises Parry MD POINT OF CARE TEST ORDERABLES [facility] [place] [address] documented in this encounter Visit Diagnoses Diagnosis [...] Routine documented in this encounter Care Teams Work Checker Relationship Specialty Start Date End Date Aneta Perez PA [address] [place] [address] PCP - General Family Medicine 10/17/19 documented as of this encounter
--- OUTSIDE RECORDS SUMMARY | 2024-02-19 01:08 | XMS_ITS | Encounter Summary ---
Author Organization [facility] [place] [address] Care Team Providers Care Residential Case Manager Name Role Phone Aneta Perez Primary Care Provider [phone] Reason for Visit * Auth/Cert (Routine) Specialty [...] EACH MUSCLE (WRVU 5.5) Ulises Parry MD [facility] [place] [address] [facility] [[email or web address]] Referral ID Status Reason Start Date Expiration Date Visits Re quested Visits Authorized [id number] 1 1 Encounter Details Date Type Department Care Team (Late st Contact Info) Description 07/22/2022 10:40 AM EST Anesthesia Event Outpatient [place] [address] Haley Taylor MD [facility] DR [place] [address] Nelsy Sanches CRNA [facility] [place] [address] Anesthesia Record Procedure Summary Procedure Name Responsible [...] 1000; metacarpal vein (top of hand), right; moxf-hzt-jrwxfm catheter system; 22 gauge; Ashkan Caballero RN; [...] Procedure Summary Date: 07/22/22 Room / Location: [address] Anesthesia Start: 1040 Anesthesia Stop: 1221 Procedures: TRANSFER OR TRANSPLANT TENDON, PALMAR, W/O FREE TENDON GRAFT, EACH (WRVU 7.89) (Left: Hand) RELEASE, INTRINSIC MUSCLES OF HAND, EACH MUSCLE (WRVU 5.5) (Left: Hand) Diagnosis: Surgery follow-up (tendon/flexor rupture) Surgeons: Ulises Parry MD Responsible Provider: Haley Taylor MD Anesthesia Type: MAC ASA Status: 2 All Anesthesia Providers: Anesthesiologist: Haley Taylor MD EAP SPECIALIST: Nelsy Sanches CRNA Vitals Value Taken Time BP 109/63 07/22/22 1300 Temp 36.5 ??C (97.7 ??F) 07/22/22 1224 Pulse 90 07/22/22 1305 Resp 16 07/22/22 1300 SpO2 95 % 07/22/22 1305 Pain Level 0 07/22/22 1300 Vitals shown include unvalidated device data. Patient Location: PACU/[facility] Level of Consciousness: Awake and Alert [...] 8.6) performed by Monique Parry MD at [facility] ? ? PRO ADJ TISS XFER HEAD, FAC, HAND <10SQCM Left 10/01/2020 ADJ.TISSUE TRANSFER, REARRANGEMENT, 10SQ.CM OR LESS, HANDS (WRVU 8.6) performed by Monique Parry MD at [facility] ??? PRO HAND TENDON KETTY RECONST, GRAFT Left 10/01/2020 RECONSTRUCT TENDON KETTY, EA TENDON, W/ TENDON OR FASCIAL GRAFT (WRVU 7.31) performed by Ulises Parry MD at [facility] ? ? PRO TENOLYSIS FLEX TENDON, PALM & FINGER, EA Left 12/05/2019 TENOLYSIS, FLEXOR TENDON, PALM AND FINGER EACH (WRVU 9.75) performed by Ulises Parry MD at [facility] ??? PRO TENOLYSIS, FLEX TENDON, PALM/FINGER, EA Left 03/26/2020 TENOLYSIS, FLEXOR TENDON, PALM OR FINGER, EACH (WRVU 5.16) performed by Ulises Parry MD at [facility] ??? PRO TRANSPLANT FOREARM/WRIST TENDON Left 03/26/2020 TENDON TRANSPLANT OR TRANSFER, FOREARM &,OR WRIST, SINGLE; EA (WRVU 8.08) performed by Ulises Parry MD at [facility] Social History Tobacco Use [...] risks discussed with patient. Plan discussed with EAP SPECIALIST. Anesthesia Screening documented in this encounter Plan [...] mg documented in this encounter Care Teams Residential Case Manager Relationship Specialty Start Date End Date Aneta Perez PA [address] [place] [address] PCP - General Family Medicine 10/17/19 documented as of this encounter
--- OUTSIDE RECORDS SUMMARY | 2024-02-19 01:08 | XMS_ITS | Encounter Summary ---
Author Organization [facility] [place] [address] Care Team Providers Care Jointer Machine Operator Name Role Phone Aneta Perez Primary Care Provider [phone] Encounter Details Date Type Department Care Team (Late st Contact Info) Description 09/04/2022 Telephone [place] [address] Krissy De Leon RN Social History Tobacco [...] on filedocumented in this encounter Care Teams Jointer Machine Operator Relationship Specialty Start Date End Date Aneta Perez PA [address] [place] [address] PCP - General Family Medicine 10/17/19 documented as of this encounter
--- OUTSIDE RECORDS SUMMARY | 2024-02-19 01:08 | XMS_ITS | Encounter Summary ---
Author Organization [facility] [place] [address] Care Team Providers Care Race Board Attendant Name Role Phone Aneta Perez Primary Care Provider [phone] Reason for Visit * Reason Onset Date Comments New Medication Request 02/20/2021 Encounter Details Date Type Department Care Team (Late st Contact Info) Description 02/20/2021 Tele[place] [address] Juan Manuel Sapp RN New Medication Request [...] 1:12 PM EDT Call received from Care [facility] asking for increased dose of Celebrex. States [...] on filedocumented in this encounter Care Teams Race Board Attendant Relationship Specialty Start Date End Date Aneta Perez PA [address] [place] [address] PCP - General Family Medicine 10/17/19 documented as of this encounter
--- OUTSIDE RECORDS SUMMARY | 2024-02-19 01:08 | XMS_ITS | Encounter Summary ---
Author Organization [facility] [place] [address] Care Team Providers Care Admin Assistant Name Role Phone Aneta Perez Primary Care Provider [phone] Encounter Details Date Type Department Care Team (Late st Contact Info) Description 10/08/2020 Telephone [place] [address] Do Esposito Social History Tobacco Use Types [...] 10/08/2020 3:06 PM EDT Faxed referral to [facility] for patient to have OT closer to home. documented in this encounter Plan of Treatment Not on file documented as of this encounter Visit Diagnoses Not on filedocumented in this encounter Care Teams Admin Assistant Relationship Specialty Start Date End Date Aneta Perez PA [address] [place] [address] PCP - General Family Medicine 10/17/19 documented as of this encounter
--- OUTSIDE RECORDS SUMMARY | 2024-02-19 01:08 | XMS_ITS | Encounter Summary ---
Author Organization [facility] Address [facility] [place] [address] Care Team Providers Care Butter Wrapper Name Role Phone Aneta Perez Primary Care Provider [phone] Encounter Details Date Type Department Care Team (Late st Contact Info) Description 08/14/2020 10:30 AM EDT TH Visit (TeleHealth) [place] [address] Zak Lee MD [facility] [place] [address] Rheumatoid arthritis involving multiple sites with positive rheumatoid factor; Other secondary osteoarthritis of multiple sites; High risk medication use; Tendon dysfunction; Other specified diabetes mellitus with other specified complication, unspecified whether line service person insulin use; Depression, unspecified depression type; Anxiety; [...] scheduled as quickly as possible up at [facility]. Again, we will be giving her [...] AM EDT Rheumatology Clinic: Dr. Lee 08/14/2020 [id number] This is a TeleHealth telephone visit for Liset Hager in follow-up of her seropositive rheumatoid arthritis with quite a bit of secondary damage already. When we assumed her care, we started brad Rituxan, 2 infusions every 6 months. That has worked well for her, but after her last set of infusions done at [facility] about 4 months ago, she has [...] ER physician, Dr. Sylwia Jackson, up but [facility] on 07/31/2020 when the patient came [...] appointment for the following day here at [facility] with the intention of switching her Rituxan infusions to every 4 weeks. Unfortunately she canceled the appointment early the following day. We have still been communicating with her and have begun the process for getting her another infusion of Rituxan up at [facility] as soon as possible. We went [...] are better. She told me that the director of marketing operations did not want to repeat her EGD [...] changed there. This will be done at [facility]. Patient Active Problem List Diagnosis Code [...] scheduled as quickly as possible up at [facility]. Again, we will be giving her [...] Total visit time: 40 minutes. Visit level: 90711. Visit Diagnoses: 1. Rheumatoid arthritis involving multiple sites with positive rheumatoid factor 2. Other secondary osteoarthritis of multiple sites 3. High risk medication use 4. Tendon dysfunction 5. Other specified diabetes mellitus with other specified complication, unspecified whether line service person insulin use 6. Depression, unspecified depression type [...] mellitus with other specified complication, unspecified whether line service person insulin use Depression, unspecified depression type Anxiety Anxiety state, unspecified Chronic pain of both knees documented in this encounter Care Teams Butter Wrapper Relationship Specialty Start Date End Date Aneta Perez PA [address] [place] [address] PCP - General Family Medicine 10/17/19 documented as of this encounter
--- OUTSIDE RECORDS SUMMARY | 2024-02-19 01:08 | XMS_ITS | Encounter Summary ---
Author Organization [facility] [place] [address] Care Team Providers Care Hydraulic Miner Blasting Name Role Phone Aneta Perez Primary Care Provider [phone] Encounter Details Date Type Department Care Team (Late st Contact Info) Description 02/22/2021 Orders [place] [address] Zak Lee MD [facility] [place] [address] Rheumatoid arthritis involving multiple sites with positive [...] factor documented in this encounter Care Teams Hydraulic Miner Blasting Relationship Specialty Start Date End Date Aneta Perez PA [address] [place] [address] PCP - General Family Medicine 10/17/19 documented as of this encounter
--- OUTSIDE RECORDS SUMMARY | 2024-02-19 01:08 | XMS_ITS | Encounter Summary ---
Author Organization [facility] [place] [address] Care Team Providers Care Steel Rule Die Maker Name Role Phone Aneta Perez Primary Care Provider [phone] Encounter Details Date Type Department Care Team (Late st Contact Info) Description 10/17/2020 Orders [place] [address] Zak Lee MD [facility] [place] [address] Social History Tobacco Use Types Packs/Day Years [...] on filedocumented in this encounter Care Teams Steel Rule Die Maker Relationship Specialty Start Date End Date Aneta Perez PA [address] [place] [address] PCP - General Family Medicine 10/17/19 documented as of this encounter
--- OUTSIDE RECORDS SUMMARY | 2024-02-19 01:08 | XMS_ITS | Encounter Summary ---
Author Organization [facility] Address [facility] [place] [address] Care Team Providers Care Field Operations Farm Manager Name Role Phone Aneta Perez Primary Care Provider [phone] Reason for Visit * Reason Comments Follow Up Surgery left hand Encounter Details Date Type Department Care Team (Late st Contact Info) Description 10/31/2020 8:00 AM EDT Office Visit Plastic Surgery at [facility] [address] [place] [address] Ulises Parry MD [facility] [place] [address] Postop check Social History Tobacco Use Types [...] surgery documented in this encounter Care Teams Field Operations Farm Manager Relationship Specialty Start Date End Date Aneta Perez PA [address] [place] [address] PCP - General Family Medicine 10/17/19 documented as of this encounter
--- OUTSIDE RECORDS SUMMARY | 2024-02-19 01:08 | XMS_ITS | Encounter Summary ---
Author Organization [facility] [place] [address] Care Team Providers Care Bank Sales And Service Manager Name Role Phone Aneta Perez Primary Care Provider [phone] Encounter Details Date Type Department Care Team (Late st Contact Info) Description 09/06/2020 Orders [place] [address] Zak Lee MD [facility] [place] [address] Social History Tobacco Use Types Packs/Day Years [...] on filedocumented in this encounter Care Teams Bank Sales And Service Manager Relationship Specialty Start Date End Date Aneta Perez PA [address] [place] [address] PCP - General Family Medicine 10/17/19 documented as of this encounter
--- OUTSIDE RECORDS SUMMARY | 2024-02-19 01:08 | XMS_ITS | Encounter Summary ---
Author Organization [facility] [place] [address] Care Team Providers Care Biochemical Engineer Name Role Phone Aneta Perez Primary Care Provider [phone] Encounter Details Date Type Department Care Team (Late st Contact Info) Description 07/31/2020 Telephone [place] [address] Zak Lee MD [facility] [place] [place] [address] Social History Tobacco Use Types Packs/Day Years [...] with Sylwia Jackson MD, ER doctor at [facility], . Patient presented with a lot [...] depression, and anxiety, and her history of [facility] admit for attempted suicide. Last round of Rituxan in [place] In April, so at least 4 months out. Currently, hands bothering, low back, right knee cap pops. ? How much is RA. After discussion, she agreed to a follow-up tomorrow at 11 am at [facility]. I sent in Rx for tramadol, #30, 1 refill to [facility] in [place]. Further recommendations after visit tomorrow. Will probably [...] factor documented in this encounter Care Teams Biochemical Engineer Relationship Specialty Start Date End Date Aneta Perez PA [address] [place] [address] PCP - General Family Medicine 10/17/19 documented as of this encounter
--- OUTSIDE RECORDS SUMMARY | 2024-02-19 01:08 | XMS_ITS | Encounter Summary ---
Author Organization [facility] [place] [address] Care Team Providers Care Clock And Watch Hands Mounter Name Role Phone Aneta Perez Primary Care Provider [phone] Encounter Details Date Type Department Care Team [...] on filedocumented in this encounter Care Teams Clock And Watch Hands Mounter Relationship Specialty Start Date End Date Aneta Perez PA [address] [place] [address] PCP - General Family Medicine 10/17/19 documented as of this encounter
--- OUTSIDE RECORDS SUMMARY | 2024-02-19 01:08 | XMS_ITS | Encounter Summary ---
Author Organization [facility] [place] [address] Care Team Providers Care Spray Gun Sizer Name Role Phone Aneta Perez Primary Care Provider [phone] Encounter Details Date Type Department Care Team (Late st Contact Info) Description 10/04/2020 Telephone [place] [address] Do Esposito Social History Tobacco Use Types [...] - 10/04/2020 7:37 AM EDT Tucker from [facility] (Occupational Therapy) asked if we could place a referral for patient to have OT closer to home per pt request. ([facility] pt) I have sent an inbasket to our nurses asking to place an external referral. documented in this encounter Plan of Treatment Not on file documented as of this encounter Visit Diagnoses Not on filedocumented in this encounter Care Teams Spray Gun Sizer Relationship Specialty Start Date End Date Aneta Perez PA [address] [place] [address] PCP - General Family Medicine 10/17/19 documented as of this encounter
--- OUTSIDE RECORDS SUMMARY | 2024-02-19 01:08 | XMS_ITS | Encounter Summary ---
Author Organization [facility] Address [facility] [place] [address] Care Team Providers Care Food Service Worker Hospital Name Role Phone Aneta Perez Primary Care Provider [phone] Reason for Visit * Occupational Therapy (Routine) - Closed Specialty Diagnoses / Procedures Referred By Roberto palomares Referred To Contact Occupational Therapy Diagnoses Surgery follow-up DOS Pending Ulises Parry MD [facility] [place] [place] [address] Htr Rehab Ot [address] [place] [address] Referral ID Status Reason Start Date Expiration Date V isits Requested Visits Authorized [id number] Closed Evaluate and Treat 06/25/2022 06/25/2023 30 30 Encounter Details Date Type Department Care Team (Late st Contact Info) Description 07/30/2022 2:30 PM EST Office Visit Occupational Therapy at [facility] [address] [place] [address] Shyanne Brar OT Pain in [...] your head No difficulty 7. Do heavy alterations supervisor (eg wash morrison, wash floors) Unable 8. [...] move your arm freely (eg playing frisbee, badThomas Engine Companyton, etc) Unable 20. Manage transportation needs (getting [...] With Activity: 12/08 Treatment Today: Orthosis - Hcvjb-Wmdd-Wujvbd Orthotic, Rigid, WO Jts, Custom Fit & Adj ([id number]) Educated patient in etiology and biomechanics as related to patient's symptoms Fabricated forearm based dorsal blocking orthosis for digits 2-5, thumb free Instructed in orthosis wear and care time study statistician Range of Motion Exercises: PROM DIP flex/ext [...] to f/u with outpatient hand therapy at [facility] ([facility]) Liset Hager participated in the evaluation, [...] limb documented in this encounter Care Teams Food Service Worker Hospital Relationship Specialty Start Date End Date Aneta Perez PA [address] [place] [address] PCP - General Family Medicine 10/17/19 documented as of this encounter
--- OUTSIDE RECORDS SUMMARY | 2024-02-19 01:08 | XMS_ITS | Encounter Summary ---
Author Organization [facility] [place] [address] Care Team Providers Care Wet Trimmer Name Role Phone Aneta Perez Primary Care Provider [phone] Reason for Visit * Auth/Cert Specialty Diagnoses / Procedures Referred By Roberto t Referred To Contact Diagnoses finger issue Procedures PRO HAND TENDON KETTY RECONST, GRAFT RECONSTRUCT TENDON KETTY, EA TENDON, W/ TENDON OR FASCIAL GRAFT (WRVU 7.31) Referral ID Status Reason Start Date Expiration Date Visits Re quested Visits Authorized [id number] 1 1 Encounter Details Date Type Department Care Team (Latest Contact Info) Description 10/01/2020 7:17 AM EDT - 10/01/2020 12:10 PM EDT Hospital Encounter [place] [address] Ulises Parry MD [facility] [place] [address] Surgery follow-up; Surgery follow-up Discharge Disposition: Home [...] closest emergency room or call the hospital charging car operator at [phone] and ask for physician fabrication supervisor covering for your physician. Questions or problems after 5pm or on a weekend: Call the [facility] charging car operator at and ask for the physician fabrication supervisor covering for your doctor. At 0800 am [...] also take motrin/ibuprofen/aleve for pain. You may [id number] mg of motrin every 6-8 hours for pain. If your pain is still not controlled, you may take the narcotic pain medication prescribed for you. Do not drive or operate machinery while taking narcotic pain medications. If taking narcotics, we recommend taking an uyws-xzl-xgrsmxh stool softener to prevent constipation. Call our [...] about scheduling, please contact our administrative officesat [phone] For clinical questions, please call our nurses at [phone] Both offices are open Thursday thru Thursday 8a - 5p. With emergencies after hours, call the hospital charging car operator at [phone] and ask for the Plastic Surgery Resident fabrication supervisor. Our office will contact you to schedule [...] patient was questioned regarding travel outside of [place] states, fever, cough, SOB or other illness [...] again, temperature will be taken, patient and caregiver/wood pile driver operator will be given a mask to wear the entire time they are in the [facility] building. * Yudelka Toro RN - 09/24/2020 3:57 PM EDT During this call the patient was questioned regarding travel outside of [place], fever, cough, SOB or other illness [...] again, temperature will be taken, patient and caregiver/wood pile driver operator will be given a mask to wear [...] 8.6) performed by Monique Parry MD at [facility] ? ? PRO TENOLYSIS FLEX TENDON, PALM & FINGER, EA Left 12/05/2019 TENOLYSIS, FLEXOR TENDON, PALM AND FINGER EACH (WRVU 9.75) performed by Ulises Parry MD at [facility] ??? PRO TENOLYSIS, FLEX TENDON, PALM/FINGER, EA Left 03/26/2020 TENOLYSIS, FLEXOR TENDON, PALM OR FINGER, EACH (WRVU 5.16) performed by Ulises Parry MD at [facility] ??? PRO TRANSPLANT FOREARM/WRIST TENDON Left 03/26/2020 TENDON TRANSPLANT OR TRANSFER, FOREARM &,OR WRIST, SINGLE; EA (WRVU 8.08) performed by Ulises Parry MD at [facility] History reviewed. No pertinent [...] Gatherings with Friends and Family: ??? Attends Quaker Services: ??? Active Member of Clubs or [...] Molly Ramos MD Plastic Surgery Resident P# [id number] documented in this encounter Miscellaneous Notes * Brief Op Note - Molly Ramos MD - 10/01/2020 10:19 AM EDT Brief Operative Note Patient Name: Liset Hager : [id number] MR#: [id number] Case Date: 10/01/2020 Surgeon: Surgeon(s) and Role: [...] 10/01/2020 9:07 AM EDT [facility] Operative Note Patient Name: Liset Hager : [id number] MR#: [id number] Case Date: 10/01/2020 Surgeon: Surgeon(s) and Role: [...] Adj Tiss Transfer Head, Fac, Hand <10Sqcm ([id number]) 10/01/2020 8:44 AM EDT Surgery follow-up Hand Tendon Ketty Reconst, Graft ([id number]) 10/01/2020 8:44 AM EDT Surgery follow-up RECONSTRUCT [...] site) documented in this encounter Care Teams Wet Trimmer Relationship Specialty Start Date End Date Aneta Perez PA [address] [place] [address] PCP - General Family Medicine 10/17/19 documented as of this encounter
--- OUTSIDE RECORDS SUMMARY | 2024-02-19 01:08 | XMS_ITS | Encounter Summary ---
Author Organization [facility] [place] [address] Care Team Providers Care Anesthetist Name Role Phone Aneta Perez Primary Care Provider [phone] Reason for Visit * Reason Onset Date Comments Medication Refill 05/22/2021 Encounter Details Date Type Department Care Team (Late st Contact Info) Description 05/22/2021 Refill [place] [address] Zak Lee MD [facility] [place] [address] High risk medication use; Infusion reaction, subsequent [...] vomiting documented in this encounter Care Teams Anesthetist Relationship Specialty Start Date End Date Aneta Perez PA [address] [place] [address] PCP - General Family Medicine 10/17/19 documented as of this encounter
--- OUTSIDE RECORDS SUMMARY | 2024-02-19 01:08 | XMS_ITS | Encounter Summary ---
Author Organization [facility] [place] [address] Care Team Providers Care Veterinary Assistant Name Role Phone Aneta Perez Primary Care Provider Encounter Details Date Type Department Care Team (Late st Contact Info) Description 05/23/2022 5:05 PM EST Ancillary Procedure Radiology Library at [facility] [address] Aneta Perez PA [address] [place] [address] Social History Tobacco Use Types Packs/Day Years [...] DX Spine (05/23/2022 5:00 PM EST) Narrative JASBIR - 05/23/2022 5:00 PM EST This exam is auto-finalizing. It's purpose is for storage only. Aneta VILLAFANA [facility] FILM LIBRARY ORD ERABLES DH [place], [place] documented in this encounter Visit Diagnoses Not on filedocumented in this encounter Care Teams Veterinary Assistant Relationship Specialty Start Date End Date Aneta Perez PA [address] [place] [address] PCP - General Family Medicine 10/17/19 documented as of this encounter
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
--- OUTSIDE RECORDS SUMMARY | 2024-02-19 01:08 | XMS_ITS | Encounter Summary ---
[place] [address] Care Team Providers Care Furniture Delivery Driver Name Role Phone Aneta Perez Primary Care Provider [phone] Encounter Details Date Type Department Care Team (Late st Contact Info) Description 07/23/2022 Telephone [place] [phone] Adrianna Castillo Social History Tobacco Use Types [...] on filedocumented in this encounter Care Teams Furniture Delivery Driver Relationship Specialty Start Date End Date Aneta Perez PA [address] [place] [address] PCP - General Family Medicine 10/17/19 documented as of this encounter
--- OUTSIDE RECORDS SUMMARY | 2024-02-19 01:08 | XMS_ITS | Encounter Summary ---
Author Organization [facility] [place] [address] Care Team Providers Care Laborer Cook House Name Role Phone Aneta Perez Primary Care Provider [phone] Encounter Details Date Type Department Care Team (Late st Contact Info) Description 02/11/2021 Orders Only [place] [address] Zak Lee MD [facility] [place] [address] Rheumatoid arthritis involving multiple sites with positive [...] factor documented in this encounter Care Teams Laborer Cook House Relationship Specialty Start Date End Date Aneta Perez PA [address] [place] [address] PCP - General Family Medicine 10/17/19 documented as of this encounter
--- OUTSIDE RECORDS SUMMARY | 2024-02-19 01:08 | XMS_ITS | Encounter Summary ---
Author Organization [facility] Address [facility] [place] [address] Care Team Providers Care Centerless Grinder Set Up Operator Name Role Phone Aneta Perez Primary Care Provider [phone] Encounter Details Date Type Department Care Team (Late st Contact Info) Description 10/03/2020 10:30 AM EDT Office Visit Plastic Surgery at [facility] [address] [place] [address] Ulises Parry MD [facility] [place] [address] Surgery follow-up Social History Tobacco Use Types [...] surgery documented in this encounter Care Teams Centerless Grinder Set Up Operator Relationship Specialty Start Date End Date Aneta Perez PA [address] [place] [address] PCP - General Family Medicine 10/17/19 documented as of this encounter
--- OUTSIDE RECORDS SUMMARY | 2024-02-19 01:08 | XMS_ITS | Encounter Summary ---
Author Organization [facility] [place] [address] Care Team Providers Care Security Incident Response Engineer Name Role Phone Aneta Perez Primary Care Provider [phone] Encounter Details Date Type Department Care Team [...] on filedocumented in this encounter Care Teams Security Incident Response Engineer Relationship Specialty Start Date End Date Aneta Perez PA [address] [place] [address] PCP - General Family Medicine 10/17/19 documented as of this encounter
--- OUTSIDE RECORDS SUMMARY | 2024-02-19 01:08 | XMS_ITS | Encounter Summary ---
Author Organization [facility] [place] [address] Care Team Providers Care Float Tender Name Role Phone Aneta Perez Primary Care Provider [phone] Encounter Details Date Type Department Care Team [...] on filedocumented in this encounter Care Teams Float Tender Relationship Specialty Start Date End Date Aneta Perez PA [address] [place] [address] PCP - General Family Medicine 10/17/19 documented as of this encounter
--- OUTSIDE RECORDS SUMMARY | 2024-02-19 01:08 | XMS_ITS | Encounter Summary ---
[place] [address] Care Team Providers Care Examiner Of Currency Name Role Phone Aneta Perez Primary Care Provider [phone] Encounter Details Date Type Department Care Team (Late st Contact Info) Description 05/27/2022 Telephone [place] [address] Bethany Watts Social History Tobacco Use Types [...] on filedocumented in this encounter Care Teams Examiner Of Currency Relationship Specialty Start Date End Date Aneta Perez PA [address] [place] [address] PCP - General Family Medicine 10/17/19 documented as of this encounter
--- OUTSIDE RECORDS SUMMARY | 2024-02-19 01:08 | XMS_ITS | Encounter Summary ---
Author Organization [facility] [place] [address] Care Team Providers Care Metal Sprayer Production Name Role Phone Aneta Perez Primary Care Provider [phone] Reason for Visit * Reason Onset Date Comments Medication Refill 07/17/2022 Encounter Details Date Type Department Care Team (Late st Contact Info) Description 07/17/2022 Ref[place] [address] Zak Lee MD [facility] [place] [address] High risk medication use; Infusion reaction, subsequent [...] vomiting documented in this encounter Care Teams Metal Sprayer Production Relationship Specialty Start Date End Date Aneta Perez PA [address] [place] [address] PCP - General Family Medicine 10/17/19 documented as of this encounter
--- OUTSIDE RECORDS SUMMARY | 2024-02-19 01:08 | XMS_ITS | Encounter Summary ---
[place] [address] Care Team Providers Care Air Conditioning Sheet Metal Installer Name Role Phone Aneta Perez Primary Care Provider [phone] Reason for Visit * Auth/Cert Specialty Diagnoses / Procedures Referred By Roberto t Referred To Contact Diagnoses finger issue Procedures PRO HAND TENDON KETTY RECONST, GRAFT RECONSTRUCT TENDON KETTY, EA TENDON, W/ TENDON OR FASCIAL GRAFT (WRVU 7.31) Referral ID Status Reason Start Date Expiration Date Visits Re quested Visits Authorized [id number] 1 1 Encounter Details Date Type Department Care Team (Late st Contact Info) Description 10/01/2020 8:50 AM EDT - 10/01/2020 10:10 AM EDT Surgery Outpatient [place] [address] Ulises Parry MD [facility] [place] [address] RECONSTRUCT TENDON KETTY, EA TENDON, W/ TENDON [...] closest emergency room or call the hospital call out operator at [phone] and ask for physician labour market economist covering for your physician. Questions or problems after 5pm or on a weekend: Call the [facility] call out operator at and ask for the physician labour market economist covering for your doctor. At 0800 am [...] also take motrin/ibuprofen/aleve for pain. You may [id number] mg of motrin every 6-8 hours for pain. If your pain is still not controlled, you may take the narcotic pain medication prescribed for you. Do not drive or operate machinery while taking narcotic pain medications. If taking narcotics, we recommend taking an ojfw-kbt-bbdaueu stool softener to prevent constipation. Call our [...] about scheduling, please contact our administrative officesat [phone] For clinical questions, please call our nurses at [phone] Both offices are open Thursday thru Thursday 8a - 5p. With emergencies after hours, call the hospital call out operator at [phone] and ask for the Plastic Surgery Resident labour market economist. Our office will contact you to schedule [...] patient was questioned regarding travel outside of [place] states, fever, cough, SOB or other illness [...] again, temperature will be taken, patient and caregiver/superintendent drivers will be given a mask to wear the entire time they are in the [facility] building. * Yudelka Toro RN - 09/24/2020 3:57 PM EDT During this call the patient was questioned regarding travel outside of [place] states, fever, cough, SOB or other illness [...] again, temperature will be taken, patient and caregiver/superintendent drivers will be given a mask to wear [...] 8.6) performed by Monique Parry MD at [facility] ? ? PRO TENOLYSIS FLEX TENDON, PALM & FINGER, EA Left 12/05/2019 TENOLYSIS, FLEXOR TENDON, PALM AND FINGER EACH (WRVU 9.75) performed by Ulises Parry MD at [facility] ??? PRO TENOLYSIS, FLEX TENDON, PALM/FINGER, EA Left 03/26/2020 TENOLYSIS, FLEXOR TENDON, PALM OR FINGER, EACH (WRVU 5.16) performed by Ulises Parry MD at [facility] ??? PRO TRANSPLANT FOREARM/WRIST TENDON Left 03/26/2020 TENDON TRANSPLANT OR TRANSFER, FOREARM &,OR WRIST, SINGLE; EA (WRVU 8.08) performed by Ulises Parry MD at [facility] History reviewed. No pertinent family [...] Gatherings with Friends and Family: ??? Attends Mosque Services: ??? Active Member of Clubs or [...] Molly Ramos MD Plastic Surgery Resident P# [id number] documented in this encounter Miscellaneous Notes * Brief Op Note - Molly Ramos MD - 10/01/2020 10:19 AM EDT Brief Operative Note Patient Name: Liset Hager : [id number] MR#: [id number] Case Date: 10/01/2020 Surgeon: Surgeon(s) and Role: [...] Parry MD - 10/01/2020 9:07 AM EDT [facility] Operative Note Patient Name: Liset Hager : [id number] MR#: [id number] Case Date: 10/01/2020 Surgeon: Surgeon(s) and Role: [...] Adj Tiss Transfer Head, Fac, Hand <10Sqcm ([id number]) 10/01/2020 8:44 AM EDT Surgery follow-up Hand Tendon Ketty Reconst, Graft ([id number]) 10/01/2020 8:44 AM EDT Surgery follow-up RECONSTRUCT [...] site) documented in this encounter Care Teams Air Conditioning Sheet Metal Installer Relationship Specialty Start Date End Date Aneta Perez PA [address] [place] [address] PCP - General Family Medicine 10/17/19 documented as of this encounter
--- OUTSIDE RECORDS SUMMARY | 2024-02-19 01:08 | XMS_ITS | Encounter Summary ---
[place] [address] Care Team Providers Care Cork Cutter Name Role Phone Aneta Perez Primary Care Provider [phone] Encounter Details Date Type Department Care Team ([facility] st Contact Info) Description 05/20/2022 [place] [phone] Anna Rodriguez MA Social History Tobacco Use [...] on filedocumented in this encounter Care Teams Cork Cutter Relationship Specialty Start Date End Date Aneta Perez PA [address] [place] [address] PCP - General Family Medicine 10/17/19 documented as of this encounter
--- OUTSIDE RECORDS SUMMARY | 2024-02-19 01:08 | XMS_ITS | Encounter Summary ---
Author Organization [facility] [place] [place] [address] Care Team Providers Care College Intern Name Role Phone Aneta Perez Primary Care Provider [phone] Encounter Details Date Type Department Care Team (Late st Contact Info) Description 07/28/2022 Telephone [place] [address] Krissy De Leon RN Social History Tobacco [...] PM EST TC from August at the [facility] asking for new orders and PA for the Rituxan. Fax to Facility. documented in this encounter Plan of Treatment Not on file documented as of this encounter Visit Diagnoses Not on filedocumented in this encounter Care Teams College Intern Relationship Specialty Start Date End Date Aneta Perez PA [address] [place] [address] PCP - General Family Medicine 10/17/19 documented as of this encounter
--- OUTSIDE RECORDS SUMMARY | 2024-02-19 01:08 | XMS_ITS | Encounter Summary ---
Author Organization [facility] [place] [address] Care Team Providers Care Money Examiner Name Role Phone Aneta Perez Primary Care Provider [phone] Encounter Details Date Type Department Care Team (Late st Contact Info) Description 09/05/2022 12:00 PM EDT TH Visit (TeleHealth) [place] [address] Zak Lee MD [facility] [address] High risk medication use; Rheumatoid arthritis involving multiple sites with positive rheumatoid factor; Upper back pain; Other secondary osteoarthritis of multiple sites; Rupture of flexor tendon of finger; Cigarette smoker; Chronic pain of both knees; Other specified diabetes mellitus with other specified complication, unspecified whether halfway insulin use Social History Tobacco Use Types [...] PM EDT Rheumatology Clinic: Dr. Lee 09/05/2022 [id number] This is a TeleHealth telephone visit for [...] like to get that done up in [place], where she generally has her infusions. We'll will look into whether that is possible and how quickly it can be done. She is also due for lab work and we will have that done in [place] as well. Finally, we decided to get knee x-rays at [place]. However, if it appears that it is going to take a while to get the Rituxan infusion done in [place], we'll probably have her come down here for an in-person visit, get the labs and x-rays here, do a good exam, and possibly inject both knees. She brought up the possibility of getting the next Rituxan infusion down here, but I told her it was extremely unlikely that they would be able to get it done here more quickly than at [place]. In terms of her other medications, at [...] we'll check labs and the x-rays at [place]. We may have her come down here for further evaluation and possible knee injections depending on how long it takes to get the next infusion of Rituxan scheduled in [place]. She understood the plan. I'll see her in follow-up in 6 months regardless. Patient recommendations: 1. Single RTX infusion at [place] as soon as can be arranged. 2. Labs and knee x-rays while there. 3. No prednisone. 4. Consider cortisone injections if delay for RTX or if knees don't respond to RTX. 5. Consider adding Arava if ongoing issues. 6. Follow-up in 3 months. Total visit time: 50 minutes. Visit level: 18522. Visit Diagnoses: 1. High risk medication use [...] mellitus with other specified complication, unspecified whether halfway insulin use documented in this encounter Care Teams Money Examiner Relationship Specialty Start Date End Date Aneta Perez PA [address] [place] [address] PCP - General Family Medicine 10/17/19 documented as of this encounter
--- OUTSIDE RECORDS SUMMARY | 2024-02-19 01:08 | XMS_ITS | Encounter Summary ---
Author Organization [facility] [place] [address] Care Team Providers Care Shipping And Receiving Weigher Name Role Phone Aneta Perez Primary Care Provider [phone] Encounter Details Date Type Department Care Team [...] on filedocumented in this encounter Care Teams Shipping And Receiving Weigher Relationship Specialty Start Date End Date Aneta Perez PA [address] [place] [address] PCP - General Family Medicine 10/17/19 documented as of this encounter
--- OUTSIDE RECORDS SUMMARY | 2024-02-19 01:08 | XMS_ITS | Encounter Summary ---
[place] [address] Care Team Providers Care Photographer Model Name Role Phone Aneta Perez Primary Care Provider [phone] Reason for Visit * Auth/Cert Specialty Diagnoses / Procedures Referred By Roberto palomares Referred To Contact Diagnoses finger issue Procedures PRO HAND TENDON KETTY RECONST, GRAFT RECONSTRUCT TENDON KETTY, EA TENDON, W/ TENDON OR FASCIAL GRAFT (WRVU 7.31) Referral ID Status Reason Start Date Expiration Date Visits Re quested Visits Authorized [id number] 1 1 Encounter Details Date Type Department Care Team (Late st Contact Info) Description 10/01/2020 8:45 AM EDT Anesthesia Event [place] [address] Rianna Ramírez DO [facility] [place] [address] Mariano Soares MD [facility] [place] [address] Anesthesia Record Procedure Summary Procedure Name Responsible [...] (RETIRED) Peripheral IV Line - Single Lumen 10/01/20; 0808; cephalic vein (lateral side of arm), right; sqhs-rxz-dxbgdx catheter system; Anatomical Landmarks; 22 gauge, 3/4 in length; Sheila Ramírez MD; intradermal injection, distraction, tolerated well; 10/01/20; 1210 10/01/20 0808 by Kim Rascon RN 10/01/20 1210 by Kim Rascon RN Supraglottic Mask Ventilation: Ea sy (1); LMA Type: iGel; LMA Size: 3; Inserted by: CAMILA Esquivel; Removal Date: 10/01/20; Removal Time: 1021 10/01/20 0849 by Nelsy Sanches LEGAL INSTRUCTOR 10/01/20 1021 by Nelsy Sanches CRNA Incision [...] Procedure Summary Date: 10/01/20 Room / Location: [facility] OR [address] [place] [address] OSC Anesthesia Start: 0845 Anesthesia Stop: 1028 Procedures: RECONSTRUCT TENDON KETTY, EA TENDON, W/ TENDON OR FASCIAL GRAFT (WRVU 7.31) (Left Hand) ADJ.TISSUE TRANSFER, REARRANGEMENT, 10SQ.CM OR LESS, HANDS (WRVU 8.6) (Left Hand) Diagnosis: Surgery follow-up (finger issue) Surgeons: Ulises Parry MD Responsible Provider: Rianna Ramírez DO Anesthesia Type: general ASA Status: 2 All Anesthesia Providers: Anesthesiologist: Rianna Ramírez DO LEGAL INSTRUCTOR: Nelsy Sanches CRNA Vitals Value Taken Time BP 144/79 10/01/20 1145 Temp Pulse 87 10/01/20 1156 Resp 20 10/01/20 1030 SpO2 95 % 10/01/20 1156 Pain Level 0 10/01/20 1200 Vitals shown include unvalidated device data. Patient Location: PACU/[facility] Level of Consciousness: Awake and Alert [...] follow-up Added automatically from request for surgery [id number] ??? Other specified diabetes mellitus with other specified complication ??? Chronic pain of both knees ??? Tendon rupture of wrist Added automatically from request for surgery [id number] ??? Tendon dysfunction ??? Rheumatoid arthritis involving [...] 8.6) performed by Monique Parry MD at [facility] OSC ? ? PRO TENOLYSIS FLEX TENDON, PALM & FINGER, EA Left 12/05/2019 TENOLYSIS, FLEXOR TENDON, PALM AND FINGER EACH (WRVU 9.75) performed by Ulises Parry MD at [facility] OSC ??? PRO TENOLYSIS, FLEX TENDON, PALM/FINGER, EA Left 03/26/2020 TENOLYSIS, FLEXOR TENDON, PALM OR FINGER, EACH (WRVU 5.16) performed by Ulises Parry MD at [facility] OSC ??? PRO TRANSPLANT FOREARM/WRIST TENDON Left 03/26/2020 TENDON TRANSPLANT OR TRANSFER, FOREARM &,OR WRIST, SINGLE; EA (WRVU 8.08) performed by Ulises Parry MD at [facility] OSC Social History Tobacco Use [...] risks discussed with patient. Plan discussed with LEGAL INSTRUCTOR. PAT Clinic Note documented in this encounter [...] mL/hr documented in this encounter Care Teams Photographer Model Relationship Specialty Start Date End Date Aneta Perez PA [address] [place] [address] PCP - General Family Medicine 10/17/19 documented as of this encounter
--- OUTSIDE RECORDS SUMMARY | 2024-02-19 01:08 | XMS_ITS | Encounter Summary ---
Author Organization [facility] Address [facility] [place] [address] Care Team Providers Care Lecturer In Computer Science Name Role Phone Aneta Perez Primary Care Provider [phone] Reason for Referral * Occupational Therapy (Routine) - Closed Specialty Diagnoses / Procedures Referred By Roberto palomares Referred To Contact Occupational Therapy Diagnoses Surgery follow-up Surgery follow-up Procedures Evaluate and Treat Ulises Parry MD [facility] [place] [address] [facility] [address] [place] [address] Referral ID Status Reason Start Date Expiration Date V isits Requested Visits Authorized [id number] Closed Evaluate and Treat 09/06/2020 09/06/2021 30 30 Reason for Visit * Reason Comments Follow Up Surgery Encounter Details Date Type Department Care Team (Late st Contact Info) Description 09/06/2020 8:45 AM EDT Office Visit [place] [address] Ulises Parry MD [facility] [place] [address] Surgery follow-up Social History Tobacco Use Types [...] brush. DO NOT wear any rings, nail vietnamese or artifical nails. The Same Day Surgery [...] to your surgery. Day of Surgery A route sales delivery drivers supervisor is required at time of discharge. If [...] pm) For an appointment or insurance questions [phone] For questions pertaining to your surgical date [phone] For nursing related questions [phone] On weekends, holidays or after office hours: Call [phone] and ask the bevel operator to page the Plastic Surgery Resident habilitative interventionist. documented in this encounter Progress Notes * [...] help. I will touch base with her Senior Devops Engineer in regards to her infusions and pre- op/post op planning. Surgical Grid Surgeon: Sohan Duration: 60 min Timeframe: next available Procedure: kat reconstruction/zplasty CPT: 63010,00007 Surgical site: hand Side: left Anesthesia: General [...] surgery documented in this encounter Care Teams Lecturer In Computer Science Relationship Specialty Start Date End Date Aneta Perez PA [address] [place] [address] PCP - General Family Medicine 10/17/19 documented as of this encounter
--- OUTSIDE RECORDS SUMMARY | 2024-02-19 01:08 | XMS_ITS | Encounter Summary ---
Author Organization [facility] [place] [address] Care Team Providers Care Purification Director Name Role Phone Aneta Perez Primary Care Provider [phone] Encounter Details Date Type Department Care Team (Late st Contact Info) Description 05/22/2021 Telephone [place] [phone] Brandee Francis Social History Tobacco Use Types [...] Medicaid so no PA is needed! (From [facility]) * Telephone Encounter - Brandee Francis - 05/22/2021 11:20 AM EST Call from [facility] stating a new auth is required for patient's Rituxan order documented in this encounter Plan of Treatment Not on file documented as of this encounter Visit Diagnoses Not on filedocumented in this encounter Care Teams Purification Director Relationship Specialty Start Date End Date Aneta Perez PA [address] [place] [address] PCP - General Family Medicine 10/17/19 documented as of this encounter
--- OUTSIDE RECORDS SUMMARY | 2024-02-19 01:08 | XMS_ITS | Encounter Summary ---
Author Organization [facility] Address [facility] [place] [address] Care Team Providers Care Client Application Support Engineer Name Role Phone Aneta Perez Primary Care Provider [phone] Reason for Referral * Occupational Therapy (Routine) - Closed Specialty Diagnoses / Procedures Referred By Roberto palomares Referred To Contact Diagnoses Tendon rupture of wrist, left, initial encounter Ulises Parry MD [facility] [place] [address] Unknown None Referral ID Status Reason Start Date Expiration Date V isits Requested Visits Authorized [id number] Closed Evaluate and Treat 10/04/2020 04/02/2021 12 12 Encounter Details Date Type Department Care Team (Late st Contact Info) Description 10/04/2020 Orders [place] [address] Ulises Parry MD [facility] [place] [address] Tendon rupture of wrist, left, initial encounter [...] encounter documented in this encounter Care Teams Client Application Support Engineer Relationship Specialty Start Date End Date Aneta Perez PA [address] [place] [address] PCP - General Family Medicine 10/17/19 documented as of this encounter
--- OUTSIDE RECORDS SUMMARY | 2024-02-19 01:09 | XMS_ITS | Encounter Summary ---
[place] [address] Care Team Providers Care Condenser Cleaner Name Role Phone Aneta Perez Primary Care Provider Encounter Details Date Type Department Care Team (Late st Contact Info) Description 04/12/2020 Telephone [place] [phone] Lidia Vale Social History Tobacco Use Types [...] on filedocumented in this encounter Care Teams Condenser Cleaner Relationship Specialty Start Date End Date Aneta Perez PA [address] [place] [address] PCP - General Family Medicine 10/17/19 documented as of this encounter
--- OUTSIDE RECORDS SUMMARY | 2024-02-19 01:09 | XMS_ITS | Encounter Summary ---
Author Organization [place] [address] Care Team Providers Care Accounts Collector Name Role Phone Yanique Mandujano MARIAH Primary Care Provider [phone] Reason for Visit * High Dollar Medication (Routine) - Closed Specialty Diagnoses / Procedures Referred By Contdacia t Referred To Contact Med Infusion Diagnoses Rheumatoid arthritis involving multiple sites with positive rheumatoid factor Zak Lee MD [facility] [place] [address] [facility] Med Infusion [address] [place] [phone] Referral ID Status Reason Start Date Expiration Date V isits Requested Visits Authorized [id number] Closed Consult, Test & Treat 10/03/2019 10/01/2020 2 2 Encounter Details Date Type Department Care Team (Latest Contact Info) Description 10/03/2019 10:16 AM EDT - 10/03/2019 11:59 PM EDT Hospital Encounter [place] [address] Rheumatoid arthritis involving multiple sites [...] Take 1 tablet by mouth daily. 05/13/2018 [employer] [facility] ULTRA BLUE TEST STRIP Strip as needed. 01/25/2018 [employer] ULTRA2 Kit as needed. 01/25/2018 lamoTRIgine (LAMICTAL) [...] 25 mg, Oral, ONCE, 1 dose, On Thu10/03/19 at 1045, FIRST INFUSION Upon arrival prior to rituximab, Outpatient Transfusion, Routine Given 10/03/2019 10:50 AM EDT 25 mg riTUXimab (RITUXAN) 1,000 mg in sodium chloride 0.9% 500 mL infusion 1,000 mg, Intravenous, ONCE, 1 dose, On Thu10/03/19 at 1045, FIRST INFUSION Administer intravenously at [...] mg documented in this encounter Care Teams Accounts Collector Relationship Specialty Start Date End Date Yanique Mandujano APRN [address] [place] [phone] PCP - General 04/23/10 10/16/19 documented as of this encounter
--- OUTSIDE RECORDS SUMMARY | 2024-02-19 01:09 | XMS_ITS | Encounter Summary ---
[place] [address] Care Team Providers Care Manager Sterile Processing Name Role Phone Aneta Perez Primary Care Provider [phone] Reason for Visit * Auth/Cert Specialty Diagnoses / Procedures Referred By Contac t Referred To Contact Diagnoses tendon injury Procedures PRO TENOLYSIS, FLEX TENDON, PALM/FINGER, EA TENOLYSIS, FLEXOR TENDON, PALM OR FINGER, EACH (WRVU 5.16) Referral ID Status Reason Start Date Expiration Date Visits Re quested Visits Authorized [id number] 1 1 Encounter Details Date Type Department Care Team (Late st Contact Info) Description 03/26/2020 12:10 PM EDT - 03/26/2020 1:30 PM EDT Surgery Outpatient [place] [address] Ulises Parry MD [facility] [place] [address] TENOLYSIS, FLEXOR TENDON, PALM OR FINGER, EACH [...] If taking narcotics, we recommend taking an sktt-ntu-gphenfc stool softener to prevent constipation. Call our [...] about scheduling, please contact our administrative officesat [phone] For clinical questions, please call our nurses at [phone] Both offices are open Thursday thru Thursday 8a - 5p. With emergencies after hours, call the hospital heating operators engineer at [phone] and ask for the Plastic Surgery Resident technician support association. FOLLOW UP: Future Appointments and Orders Future Appointments and Orders Future Appointments Provider Department Dept Phone 04/03/2020 11:30 AM Zak Lee MD Rheumatology at [facility] Arrive at: Production Repairer Area [phone] 04/03/2020 1:00 PM Ulises Parry MD Plastic Surgery at [facility] Arrive at: Production Repairer Area [phone] 04/03/2020 1:30 PM Tucker Wiggins OT Occupational Therapy at [facility] Arrive at: Production Repairer 1 [facility] [phone] documented in this encounter Medications at Time [...] patient was questioned regarding travel outside of [facility], fever, cough, SOB or other illness [...] again, temperature will be taken, patient and caregiver/special needs bus driver will be given a mask to [...] 9.75) performed by Ulises Parry MD at [facility] OSC History reviewed. No pertinent family [...] file Gets together: Not on file Attends protestant service: Not on file Active member of [...] Molly Ramos MD Plastic Surgery Resident P# [id number] documented in this encounter Miscellaneous Notes * Op Note - Ulises Parry MD - 03/26/2020 1:43 PM EDT [facility] Operative Note Patient Name: Liset Hager : [id number] MR#: [id number] Case Date: 03/26/2020 Surgeon: Surgeon(s) and Role: [...] DIP with good tendon glide. The p brittain was aroused from sedation and was unable [...] At this point we proceeded with a gduo-wa-jtff middle finger to index finger FDP transfer. Using 3-0 fiberwire, the tendons were secured together with buurys-pm-hrrzu sutures so that the index FDP was [...] Operative Note Patient Name: Liset Hager : [id number] MR#: [id number] Case Date: 03/26/2020 Surgeon: Surgeon(s) and Role: [...] Center 04/03/2020 11:30 AM Zak Lee MD [facility] RHEUM [facility] 04/03/2020 1:30 PM Tucker Wiggins, OT [facility] Re[facility] OT [facility] documented in this encounter Plan of Treatment [...] Adj Tiss Transfer Head, Fac, Hand <10Sqcm ([id number]) 03/26/2020 12:13 PM EDT Tendon rupture of wrist, left, initial encounter Transplant Forearm/Wrist Tendon ([id number]) 03/26/2020 12:13 PM EDT Tendon rupture of wrist, left, initial encounter Tenolysis, Flex Tendon, Palm/Finger, Ea ([id number]) 03/26/2020 12:13 PM EDT Tendon rupture of [...] MD) documented in this encounter Care Teams Manager Sterile Processing Relationship Specialty Start Date End Date Aneta Perez PA [address] [place] [address] PCP - General Family Medicine 10/17/19 documented as of this encounter
--- OUTSIDE RECORDS SUMMARY | 2024-02-19 01:09 | XMS_ITS | Encounter Summary ---
Author Organization [facility] [place] [address] Care Team Providers Care Bond Trader Name Role Phone Yanique Mandujano MARIAH Primary Care Provider [phone] Reason for Visit * Reason Onset Date Comments Follow-up 12/09/2018 Encounter Details Date Type Department Care Team (Late st Contact Info) Description 12/09/2018 Telephone Rheumatology at [facility] [place] [phone] Juan Manuel Sapp RN Follow-up Social History [...] Call received from Karen Jacome APRN at [facility] asking if there are any contraindications [...] on filedocumented in this encounter Care Teams Bond Trader Relationship Specialty Start Date End Date Yanique Mandujano APRN [address] [place] [phone] PCP - General 04/23/10 10/16/19 documented as of this encounter
--- OUTSIDE RECORDS SUMMARY | 2024-02-19 01:09 | XMS_ITS | Encounter Summary ---
Author Organization [facility] [address] Care Team Providers Care Chief Operating Officer Name Role Phone Yanique Mandujano MARIAH Primary Care Provider [phone] Reason for Visit * Reason Comments IV Medication * High Dollar Medication (Routine) - Closed Specialty Diagnoses / Procedures Referred By Contac t Referred To Contact Med Infusion Diagnoses Rheumatoid arthritis with rheumatoid factor of multiple sites without organ or systems involvement Day 1 RITUXAN:Lee EDH Procedures TC RITUXIMAB, 10MG INJECTION RITUXAN Zak Lee MD [facility] [place] [address] [facility] Med Infusion [address] [place] [phone] Referral ID Status Reason Start Date Expiration Date Visits Re quested Visits Authorized [id number] Closed 12/14/2018 12/30/2018 1 1 Encounter Details Date Type Department Care Team (Latest Contact Info) Description 12/14/2018 8:17 AM EDT - 12/14/2018 11:59 PM EDT Hospital En[place] [address] Rheumatoid arthritis involving multiple sites [...] Take 1 tablet by mouth daily. 05/13/2018 [facility] ULTRA BLUE TEST STRIP Strip as needed. 01/25/2018 [facility] ULTRA2 Kit as needed. 01/25/2018 lamoTRIgine (LAMICTAL) [...] 36.6 ??C (97.9 ??F) (Oral) Resp 18 CbV036% IF PAIN >5, INTERVENTION AND EFFECTIVENESS: N/A [...] mg documented in this encounter Care Teams Chief Operating Officer Relationship Specialty Start Date End Date Yanique Mandujano APRN [address] [place] [phone] PCP - General 04/23/10 10/16/19 documented as of this encounter
--- OUTSIDE RECORDS SUMMARY | 2024-02-19 01:09 | XMS_ITS | Encounter Summary ---
Author Organization [facility] [place] [address] Care Team Providers Care Special Education Inclusion Teacher Name Role Phone Aneta Perez Primary Care Provider [phone] Reason for Visit * Auth/Cert Specialty Diagnoses / Procedures Referred By Contac t Referred To Contact Diagnoses tendon injury Procedures PRO TENOLYSIS, FLEX TENDON, PALM/FINGER, EA TENOLYSIS, FLEXOR TENDON, PALM OR FINGER, EACH (WRVU 5.16) Referral ID Status Reason Start Date Expiration Date Visits Re quested Visits Authorized [id number] 1 1 Encounter Details Date Type Department Care Team (Latest Contact Info) Description 03/26/2020 10:38 AM EDT - 03/26/2020 2:46 PM EDT Hospital Encounter [place] [address] Ulises Parry MD [facility] [place] [address] Tendon rupture of wrist, left, initial encounter [...] If taking narcotics, we recommend taking an vjog-wlm-qgfwzng stool softener to prevent constipation. Call our [...] about scheduling, please contact our administrative officesat [phone] For clinical questions, please call our nurses at [phone] Both offices are open Thursday thru Thursday 8a - 5p. With emergencies after hours, call the hospital testboard operator at [phone] and ask for the Plastic Surgery Resident visual presentation manager. FOLLOW UP: Future Appointments and Orders Future Appointments and Orders Future Appointments Provider Department Dept Phone 04/03/2020 11:30 AM Zak Lee MD Rheumatology at [facility] Arrive at: Canoe Inspector Area [phone] 04/03/2020 1:00 PM Ulises Parry MD Plastic Surgery at [facility] Arrive at: Canoe Inspector Area [phone] 04/03/2020 1:30 PM Tucker Wiggins OT Occupational Therapy at [facility] Arrive at: Canoe Inspector 1 [facility] [phone] documented in this encounter Medications at Time of Discharge Medication Sig Dispensed Refills Start Date End Date rituximab (RITUXAN IV) Inject into the vein. albuterol (PROVENTIL) 2.5 mg /3 mL (0.083 %) Solution for Nebulization prn 09/29/2018 amitriptyline (ELAVIL) 100 mg Tablet Take 1 tablet by mouth daily. 05/13/2018 [employer] ULTRA BLUE TEST STRIP Strip as needed. 01/25/2018 [employer] ULTRA2 Kit as needed. 01/25/2018 lamoTRIgine (LAMICTAL) [...] patient was questioned regarding travel outside of [facility], fever, cough, SOB or other illness [...] again, temperature will be taken, patient and caregiver/coal tram driver will be given a mask to [...] 9.75) performed by Ulises Parry MD at [facility] History reviewed. No pertinent family [...] file Gets together: Not on file Attends confucianist service: Not on file Active member of [...] Molly Ramos MD Plastic Surgery Resident P# [id number] documented in this encounter Miscellaneous Notes * Op Note - Ulises Parry MD - 03/26/2020 1:43 PM EDT [facility] Operative Note Patient Name: Liset Hager : [id number] MR#: [id number] Case Date: 03/26/2020 Surgeon: Surgeon(s) and Role: [...] At this point we proceeded with a dptv-vv-htfl middle finger to index finger FDP transfer. Using 3-0 fiberwire, the tendons were secured together with dxoxqf-ci-quxcr sutures so that the index FDP was [...] Operative Note Patient Name: Liset Hager : [id number] MR#: [id number] Case Date: 03/26/2020 Surgeon: Surgeon(s) and Role: [...] Center 04/03/2020 11:30 AM Zak Lee MD [facility] RHEUM [facility] 04/03/2020 1:30 PM Tucker Wiggins, OT [facility] OT [facility] documented in this encounter Plan [...] Adj Tiss Transfer Head, Fac, Hand <10Sqcm ([id number]) 03/26/2020 12:13 PM EDT Tendon rupture of wrist, left, initial encounter Transplant Forearm/Wrist Tendon ([id number]) 03/26/2020 12:13 PM EDT Tendon rupture of wrist, left, initial encounter Tenolysis, Flex Tendon, Palm/Finger, Ea ([id number]) 03/26/2020 12:13 PM EDT Tendon rupture of [...] MD) documented in this encounter Care Teams Special Education Inclusion Teacher Relationship Specialty Start Date End Date Aneta Perez PA [address] [place] [address] PCP - General Family Medicine 10/17/19 documented as of this encounter
--- OUTSIDE RECORDS SUMMARY | 2024-02-19 01:09 | XMS_ITS | Encounter Summary ---
[place] [address] Care Team Providers Care Jd Edwards Name Role Phone Aneta Perez Primary Care Provider [phone] Reason for Visit * Reason Onset Date Comments New Medication Request 02/01/2020 Encounter Details Date Type Department Care Team (Late st Contact Info) Description 02/01/2020 [place] [phone] Juan Manuel Sapp RN New Medication Request [...] RTC will close encounter for now. Sent Leixir message as well. * Telephone Encounter - [...] on filedocumented in this encounter Care Teams Jd Edwards Relationship Specialty Start Date End Date Aneta Perez PA [address] [place], [place] [phone] PCP - General Family Medicine 10/17/19 documented as of this encounter
--- OUTSIDE RECORDS SUMMARY | 2024-02-19 01:09 | XMS_ITS | Encounter Summary ---
Author Organization [facility]ly [facility] Address [facility] [place] [address] Care Team Providers Care Medical Collections Specialist Name Role Phone Aneta Perez Primary Care Provider [phone] Reason for Visit * Occupational Therapy (Routine) - Specialty Diagnoses / Procedures Referred By Roberto palomares Referred To Contact Occupational Therapy Diagnoses Tendon rupture of wrist, left, initial encounter No surgery date Ulises Parry MD [facility] [place] [address] [facility] [address] [place] [address] Referral ID Status Reason Start Date Expiration Date V isits Requested Visits Authorized [id number] Evaluate and Treat 02/16/2020 02/15/2021 12 12 Encounter Details Date Type Department Care Team (Late st Contact Info) Description 04/04/2020 9:00 AM EST Office Visit Occupational Therapy at [facility] [address] [place] [address] Liss Armstrong OT Tendon dysfunction Social History Tobacco Use Types [...] 1. Tendon dysfunction 2. 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 Has good relationship with her OT [...] bursa documented in this encounter Care Teams Medical Collections Specialist Relationship Specialty Start Date End Date Aneta Perez PA [address] [place] [address] PCP - General Family Medicine 10/17/19 documented as of this encounter
--- OUTSIDE RECORDS SUMMARY | 2024-02-19 01:09 | XMS_ITS | Encounter Summary ---
Author Organization [facility] [place] [address] Care Team Providers Care Behavioral Health Worker Name Role Phone Aneta Perez Primary Care Provider [phone] Reason for Visit * Occupational Therapy (JENS) - Specialty Diagnoses / Procedures Referred By Roberto palomares Referred To Contact Occupational Therapy Diagnoses Tendon dysfunction Ulises Steel MD [facility] [place] [address] Tucker Wiggins, OT [facility] PHYSICAL MEDICINE & [place] [address] Referral ID Status Reason Start Date Expiration Date V isits Requested Visits Authorized [id number] Evaluate and Treat 12/05/2019 12/04/2020 12 12 Encounter Details Date Type Department Care Team (Late st Contact Info) Description 12/15/2019 2:30 PM EDT Office Visit Occupational Therapy at [address] [phone] Tucker Wiggins, OT [facility] PHYSICAL MEDICINE & [place] [address] Tendon dysfunction Social History Tobacco Use Types [...] History and/or Co-morbidities: 1. Tendon dysfunction Occupation: [employer] Vocational status: off work now due to surgery Avocational Activities: Hang with friends, swimming OCCUPATIONAL PERFORMANCE DEFICITS: Liset Haegr is limited with current performance due to [...] boyfriend. 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 Short Term Goals (to be met by [...] bursa documented in this encounter Care Teams Behavioral Health Worker Relationship Specialty Start Date End Date Aneta Perez PA [address] [place] [address] PCP - General Family Medicine 10/17/19 documented as of this encounter
--- OUTSIDE RECORDS SUMMARY | 2024-02-19 01:09 | XMS_ITS | Encounter Summary ---
Author Organization [facility] [place] [address] Care Team Providers Care Machine Sweeper Brush Maker Name Role Phone Aneta Perez Primary Care Provider [phone] Reason for Visit * Reason Onset Date Comments Prior Authorization 04/20/2020 Encounter Details Date Type Department Care Team (Late st Contact Info) Description 04/20/2020 Telephone [place] [phone] Cynthia Partida Prior Authorization Social History Tobacco [...] (Karl) Rationale for request: RA Health plan: [place] Medicaid ([facility]) Authorizing public relations representative name: Haley Sent to health plan on: 04/20/20 Health plan decision: Not required Quantity approved: Authorization number: Start date: End date: documented in this encounter Plan of Treatment Not on file documented as of this encounter Visit Diagnoses Not on filedocumented in this encounter Care Teams Machine Sweeper Brush Maker Relationship Specialty Start Date End Date Aneta Perez PA [address] [place] [address] PCP - General Family Medicine 10/17/19 documented as of this encounter
--- OUTSIDE RECORDS SUMMARY | 2024-02-19 01:09 | XMS_ITS | Encounter Summary ---
[place] [address] Care Team Providers Care Tie Puller Name Role Phone Aneta Perez Primary Care Provider [phone] Reason for Visit * Reason Onset Date Comments Other 04/18/2020 Encounter Details Date Type Department Care Team ([facility] st Contact Info) Description 04/18/2020 Tele[place] [phone] Kvng Rust RN Other Social History Tobacco [...] 04/18/2020 10:45 AM EST Faxed Caitlyn @ [place] the request for a height of Liset Mcmillan. documented in this encounter Plan of Treatment Not on file documented as of this encounter Visit Diagnoses Not on filedocumented in this encounter Care Teams Tie Puller Relationship Specialty Start Date End Date Aneta Perez PA [address] [place] [address] PCP - General Family Medicine 10/17/19 documented as of this encounter
--- OUTSIDE RECORDS SUMMARY | 2024-02-19 01:09 | XMS_ITS | Encounter Summary ---
[place] [address] Care Team Providers Care Welcome Hostess Name Role Phone Aneta Perez Primary Care Provider [phone] Reason for Visit * Auth/Cert Specialty Diagnoses / Procedures Referred By Roberto t Referred To Contact Diagnoses tendon rupture Procedures PRO TRANSPLANT/GRAFT PALM TENDON TRANSFER OR TRANSPLANT TENDON, PALMAR, W/ FREE TENDON GRAFT, EA (WRVU 9.86) Referral ID Status Reason Start Date Expiration Date Visits Re quested Visits Authorized [id number] 1 1 Encounter Details Date Type Department Care Team (Late st Contact Info) Description 12/05/2019 11:12 AM EDT Anesthesia Event [place] [address] Rianna Ramírez DO [facility] [place] [address] Sagar Iqbal MD [facility] [place] [address] Anesthesia Record Procedure Summary Procedure Name Responsible [...] Removal Time: 0812/05/19 1123 by Nelsy Allen, DAIRY SCIENTIST 10/01/20 0808 by Kim Rascon RN Incision [...] Procedure Summary Date: 12/05/19 Room / Location: [address] Anesthesia Start: 1112 Anesthesia Stop: 1239 Procedure: TENOLYSIS, FLEXOR TENDON, PALM AND FINGER EACH (WRVU 9.75) (Left Hand) Diagnosis: Tendon rupture of wrist, left, initial encounter (tendon rupture) Surgeon: Ulises Parry MD Responsible Provider: Rianna Ramírez DO Anesthesia Type: general ASA Status: 2 All Anesthesia Providers: Anesthesiologist: Rianna Ramírez DO DAIRY SCIENTIST: Nelsy Allen CRNA Vitals Value Taken Time BP 141/66 12/05/2019 12:48 PM Temp Pulse 78 12/05/2019 12:48 PM Resp 17 12/05/2019 12:48 PM SpO2 100 % 12/05/2019 12:48 PM Pain Level 4 12/05/2019 12:48 PM Patient Location: PACU/[facility] Level of [...] risks discussed with patient. Plan discussed with DAIRY SCIENTIST. PAT Clinic Note documented in this encounter [...] mL/hr documented in this encounter Care Teams Welcome Hostess Relationship Specialty Start Date End Date Aneta Perez PA [address] [place] [address] PCP - General Family Medicine 10/17/19 documented as of this encounter
--- OUTSIDE RECORDS SUMMARY | 2024-02-19 01:09 | XMS_ITS | Encounter Summary ---
[place] [address] Care Team Providers Care Fruit Room Hand Name Role Phone Aneta Perez Primary Care Provider [phone] Reason for Visit * Reason Onset Date Comments Follow-up 04/16/2020 Encounter Details Date Type Department Care Team (Late st Contact Info) Description 04/16/2020 Telephone [place] [phone] Juan Manuel Sapp RN Follow-up Social History [...] MAILBOX IS FULL. I sent her a SmartKickz message. documented in this encounter Plan of Treatment Not on file documented as of this encounter Visit Diagnoses Not on filedocumented in this encounter Care Teams Fruit Room Hand Relationship Specialty Start Date End Date Aneta Perez PA [address] [place] [address] PCP - General Family Medicine 10/17/19 documented as of this encounter
--- OUTSIDE RECORDS SUMMARY | 2024-02-19 01:09 | XMS_ITS | Encounter Summary ---
Author Organization [facility] [place] [address] Care Team Providers Care Db2 Developer Name Role Phone Aneta Perez Primary Care Provider [phone] Reason for Visit * Auth/Cert Specialty Diagnoses / Procedures Referred By Contdacia t Referred To Contact Diagnoses tendon injury Procedures PRO TENOLYSIS, FLEX TENDON, PALM/FINGER, EA TENOLYSIS, FLEXOR TENDON, PALM OR FINGER, EACH (WRVU 5.16) Referral ID Status Reason Start Date Expiration Date Visits Re quested Visits Authorized [id number] 1 1 Encounter Details Date Type Department Care Team (Late st Contact Info) Description 03/26/2020 12:13 PM EDT Anesthesia Event [place] [address] Rianna Ramírez DO [facility] [place] [place] [address] John López MD [facility] [place] [address] Anesthesia Record Procedure Summary Procedure Name Responsible [...] Removal Time: 0812/05/19 1123 by Nelsy Allen, HEAD STOCK TRANSFER CLERK 10/01/20 0808 by Kim Rascon RN [...] 1144; median vein (underside of arm), right; smpv-aag-itonpc catheter system; 22 gauge; BB; distraction, intradermal [...] Procedure Summary Date: 03/26/20 Room / Location: [facility] OR [address] [place] [address] Anesthesia Start: 1213 Anesthesia Stop: 1345 Procedures: [...] All Anesthesia Providers: Anesthesiologist: Rianna Ramírez DO HEAD STOCK TRANSFER CLERK: Danica Bell CRNA Vitals Value Taken Time BP 136/78 03/26/20 1415 Temp 36.4 ??C (97.5 ??F) 03/26/20 1344 Pulse 101 03/26/20 1420 Resp 16 03/26/20 1415 SpO2 99 % 03/26/20 1419 Pain Level 0 03/26/20 1415 Vitals shown include unvalidated device data. Patient Location: PACU/[facility] Level of Consciousness: Awake and Alert Pain [...] wrist Added automatically from request for surgery [id number] ??? Tendon dysfunction ??? Rheumatoid arthritis involving [...] by Ulises Parry MD at [facility] Social History Tobacco Use ??? [...] with patient and spouse. Plan discussed with HEAD STOCK TRANSFER CLERK. PAT Clinic Note documented in this [...] r documented in this encounter Care Teams Db2 Developer Relationship Specialty Start Date End Date Aneta Perez PA [address] [place] [address] PCP - General Family Medicine 10/17/19 documented as of this encounter
--- OUTSIDE RECORDS SUMMARY | 2024-02-19 01:09 | XMS_ITS | Encounter Summary ---
Author Organization [facility] [place] [address] Care Team Providers Care Telephone Lines Repairer Name Role Phone Aneta Perez Primary Care Provider [phone] Reason for Visit * Reason Onset Date Comments Questions 05/16/2020 Encounter Details Date Type Department Care Team ([facility] st Contact Info) Description 05/16/2020 [place] [phone] Momo Knight, RN Questions Social History Tobacco [...] - 05/16/2020 2:25 PM EST Merline from [facility] calls. Patient receives rtx day 1 and day 15. Merline asks if patient to be scheduled 6 months from day 1 or 6 months from day 15? documented in this encounter Plan of Treatment Not on file documented as of this encounter Visit Diagnoses Not on filedocumented in this encounter Care Teams Telephone Lines Repairer Relationship Specialty Start Date End Date Aneta Perez PA [address] [place] [address] PCP - General Family Medicine 10/17/19 documented as of this encounter
--- OUTSIDE RECORDS SUMMARY | 2024-02-19 01:09 | XMS_ITS | Encounter Summary ---
[place] [address] Care Team Providers Care Supervisor Boiler Repair Name Role Phone Aneta Perez Primary Care Provider [phone] Encounter Details Date Type Department Care Team ([facility] st Contact Info) Description 01/06/2020 Telephone [place] [phone] Do Esposito Social History Tobacco Use Types [...] her OT provider (Mena Gunn) over at [facility]. To begin E-Stem treatment. I called patient to alert her. documented in this encounter Plan of Treatment Not on file documented as of this encounter Visit Diagnoses Not on filedocumented in this encounter Care Teams Supervisor Boiler Repair Relationship Specialty Start Date End Date Aneta Perez PA [address] [place] [address] PCP - General Family Medicine 10/17/19 documented as of this encounter
--- OUTSIDE RECORDS SUMMARY | 2024-02-19 01:09 | XMS_ITS | Encounter Summary ---
[place] [address] Care Team Providers Care Oyster Picker Name Role Phone Aneta Perez Primary Care Provider [phone] Encounter Details Date Type Department Care Team (Late st Contact Info) Description 03/26/2020 Telephone [place] [phone] Fabiola Batista RN Social History Tobacco Use [...] on filedocumented in this encounter Care Teams Oyster Picker Relationship Specialty Start Date End Date Aneta Perez PA [address] [place] [address] PCP - General Family Medicine 10/17/19 documented as of this encounter
--- OUTSIDE RECORDS SUMMARY | 2024-02-19 01:09 | XMS_ITS | Encounter Summary ---
Author Organization [facility] [place] [address] Care Team Providers Care Otr Owner Operator Truck Driver Name Role Phone Yanique Mandujano APRN Primary Care Provider [phone] Reason for Visit * Reason Onset Date Comments Other 09/14/2019 Encounter Details Date Type Department Care Team (Late st Contact Info) Description 09/14/2019 Tele[place] [phone] Momo Knight RN Other Social History Tobacco [...] on filedocumented in this encounter Care Teams Otr Owner Operator Truck Driver Relationship Specialty Start Date End Date Yanique Mandujano APRN [address] [place] [address] PCP - General 04/23/10 10/16/19 documented as of this encounter
--- OUTSIDE RECORDS SUMMARY | 2024-02-19 01:09 | XMS_ITS | Encounter Summary ---
Author Organization [facility] Address [facility] [place] [address] Care Team Providers Care Copy Cutter Name Role Phone Yanique Mandujano MARIAH Primary Care Provider [phone] Reason for Referral * Occupational Therapy (Routine) - Duplicate Referral Specialty Diagnoses / Procedures Referred By Roberto palomares Referred To Contact Occupational Therapy Diagnoses Tendon rupture of wrist, left, initial encounter Ulises Parry MD [facility] [place] [address] H[facility] Rehab Ot [address] [place] [address] Referral ID Status Reason Start Date Expiration Date Visits Requested Visits Authorized [id number] Duplicate Referral Evaluate and Treat 10/05/2019 10/04/2020 12 12 Reason for Visit * Reason Comments Advice Only RA bilat pain, * Consultation (Routine) - Closed Specialty Diagnoses / Procedures Referred By Contac t Referred To Contact Plastic Surgery Diagnoses Rheumatoid arthritis involving multiple sites with positive rheumatoid factor Tendon dysfunction Zak Lee MD [facility] [place] [address] Ulises Parry MD [facility] [place] [address] Referral ID Status Reason Start Date Expiration Date V isits Requested Visits Authorized [id number] Closed Consult, Test & Treat 09/30/2019 09/29/2020 1 1 Encounter Details Date Type Department Care Team (Late st Contact Info) Description 10/05/2019 9:30 AM EDT Office Visit [facility]astic Surgery at [facility] [place] [address] Ulises Parry MD [facility] [place] [address] Tendon rupture of wrist, left, initial encounter [...] brush. DO NOT wear any rings, nail divehi or artifical nails. The Same Day Surgery [...] Day of Surgery You will need a lumber driver. If you do not have a lumber driver, your surgery will be canceled. DO NOT wear any jewelry, makeup or artificial nails. Do wear comfortable, loose fitting clothes. Anesthesia will meet with you the morning of surgery. They will perform an assessment and review your history with you. Contact Information: During regular office hours (Thursday- Thursday, non-holiday 8:00 am- 5:00 pm) For an appointment or insurance questions [phone] For questions pertaining to your surgical date [phone] For nursing related questions [phone] On weekends, holidays or after office hours: Call and ask the receiving distribution station operator to page the Plastic Surgery Resident director of application development. documented in this encounter Progress Notes * Ulises Parry MD - 10/05/2019 9:30 AM EDT Plastic Surgery Hand Consultation Note I have been asked to see the patient by Dr. 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 Unfortunately, we do not have the [...] to be non functional. 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 She is a diabetic but doesn't check [...] file Gets together: Not on file Attends restoration service: Not on file Active member of [...] BLUE TEST STRIP Strip as needed. ??? Simple EnergyTOUCH ULTRA2 Kit as needed. ??? clonazePAM (KLONOPIN) [...] FPL index to FPL of long. CPT: 61470 Surgical site: index finger Side: left hand Anesthesia: General Follow up: 7 Days H&P: yes Implants needed: tendon harvester and guaman OT needed at post op visit: yes, dorsal blocking splint Plan: Obtain operative notes from Dr. Delgado ([facility]) Obtain MRI and report from [facility] Proceed with tendon transfer with tendon [...] encounter documented in this encounter Care Teams Copy Cutter Relationship Specialty Start Date End Date Yanique Mandujano APRN [address] [place] [phone] PCP - General 04/23/10 10/16/19 documented as of this encounter
--- OUTSIDE RECORDS SUMMARY | 2024-02-19 01:09 | XMS_ITS | Encounter Summary ---
Author Organization Count Includes [facility] Address [facility] [place] [id number] Care Team Providers Care Tire Service Technician Name Role Phone Yanique Mandujano MARIAH Primary Care Provider [phone] Reason for Referral * Consultation (Routine) - Closed Specialty Diagnoses / Procedures Referred By Roebrto palomares Referred To Contact Plastic Surgery Diagnoses Rheumatoid arthritis involving multiple sites with positive rheumatoid factor Tendon dysfunction Zak Lee MD [facility] [place] [address] Ulises Parry MD [facility] [address] Referral ID Status Reason Start Date Expiration Date V isits Requested Visits Authorized [id number] Closed Consult, Test & Treat 09/30/2019 09/29/2020 1 1 Encounter Details Date Type Department Care Team (Late st Contact Info) Description 09/30/2019 1:30 PM EDT TH Visit (TeleHealth) [place] [address] Zak Lee MD [facility] [place] [address] Rheumatoid arthritis involving multiple sites with positive [...] PM EDT Rheumatology Clinic: Dr. Lee 09/30/2019 [id number] This is a TeleHealth phone visit for Liset Hager in follow-up of her seropositive rheumatoid arthritis. We have seen her twice, on 06/02/2018 and 11/30/2018. She had previously followed with Dr. Morgan in [place]. She had previously been on methotrexate and [...] first infusion on 10/03/2019. She now has [facility] medical insurance. To tide her over to [...] October and March by Dr. Delgado in [place]. The first one was complicated by the [...] pandemic. 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 Fortunately nobody in that facility has, gotten sick. Her daughter goes back and forth between her home and that of her biological father. Unfortunately her 16-year-old was hospitalized at [facility] for a suicide attempt but she is [...] her family and the patients at [facility]. Assessment: Her rheumatoid is flaring, but [...] her in follow-up in 6 months, hopefully [id number] as the pandemic quiets down. Visit Diagnoses: 1. Rheumatoid arthritis involving multiple sites with positive rheumatoid factor 2. Graves disease 3. High risk medication use 4. Tendon dysfunction Orders Placed This Encounter Procedures ??? Referral to Plastic Surgery Total phone time: 14 min, 51 sec. Total visit time: >25 min. Visit level: 65019. documented in this encounter Plan of Treatment [...] bursa documented in this encounter Care Teams Tire Service Technician Relationship Specialty Start Date End Date Yanique Mandujano APRN [address] [place] [phone] PCP - General 04/23/10 10/16/19 documented as of this encounter
--- OUTSIDE RECORDS SUMMARY | 2024-02-19 01:09 | XMS_ITS | Encounter Summary ---
Author Organization [facility] [place] [address] Care Team Providers Care Aircraft Painter Name Role Phone Aneta Perez Primary Care Provider [phone] Reason for Referral * Occupational Therapy (JENS) - Specialty Diagnoses / Procedures Referred By Roberto palomares Referred To Contact Occupational Therapy Diagnoses Tendon dysfunction Ulises Steel MD [facility] [place] [address] Tucker Wiggins, OT [facility]YS[facility]IC[facility] [place] [address] Referral ID Status Reason Start Date Expiration Date V isits Requested Visits Authorized [id number] Evaluate and Treat 12/05/2019 12/04/2020 12 12 Reason for Visit * Auth/Cert Specialty Diagnoses / Procedures Referred By Roberto palomares Referred To Contact Diagnoses tendon rupture Procedures PRO TRANSPLANT/GRAFT PALM TENDON TRANSFER OR TRANSPLANT TENDON, PALMAR, W/ FREE TENDON GRAFT, EA (WRVU 9.86) Referral ID Status Reason Start Date Expiration Date Visits Re quested Visits Authorized [id number] 1 1 Encounter Details Date Type Department Care Team (Latest Contact Info) Description 12/05/2019 8:39 AM EDT - 12/05/2019 1:21 PM EDT Hospital Encounter Outpatient [place] [address] Ulises Parry MD [facility] [place] [address] Tendon rupture of wrist, left, initial encounter; [...] office hours: Thursday - Thursday 8am-5pm call [phone]. On weekends or after hours call [phone] and ask the shotgun shell assembly machine operator to page the plastic surgery resident inspector repairer sandstone. PAIN MEDICATION: You were given a prescription [...] Thursday 8 am to 5 pm): Call [phone]. On weekends or after hours: Call [phone] and ask the shotgun shell assembly machine operator to speak to the Plastic Surgery Resident on-call. FOLLOW-UP APPOINTMENTS: You follow-up appointment has been scheduled. You should have an appointment in on 12/15/19 with in Plastic Surgery clinic for a postoperative follow- up. Please call [phone] if you have not received a phone [...] Center 12/15/2019 1:00 PM Ulises Parry MD [facility] [address] [place] [address] 12/15/2019 2:45 PM Tucker Wiggins, MARIA L [facility] 04/03/2020 11:30 AM Zak Lee MD [facility] documented in this encounter Medications at Time [...] again, temperature will be taken, patient and caregiver/dolly driver will be given a mask to [...] file Gets together: Not on file Attends alevism service: Not on file Active member of [...] Parry MD - 12/05/2019 1:21 PM EDT [facility] Operative Note Patient Name: Liset Hager : [id number] MR#: [id number] Case Date: 12/05/2019 Surgeon: Surgeon(s) and Role: [...] Operative Note Patient Name: Liset Hager : [id number] MR#: [id number] Case Date: 12/05/2019 Surgeon: Surgeon(s) and Role: [...] Center 12/15/2019 1:00 PM Ulises Parry MD [facility] [address] [place] [address] 12/15/2019 2:45 PM Tucker Wiggins OT [facility] 04/03/2020 11:30 AM Zak Lee MD [facility] documented in this encounter Plan of Treatment [...] Tenolysis Flex Tendon, Palm & Finger, Ea (61185) 12/05/2019 11:12 AM EDT Tendon rupture of [...] MD) documented in this encounter Care Teams Aircraft Painter Relationship Specialty Start Date End Date Aneta Perez PA [address] [place] [address] PCP - General Family Medicine 10/17/19 documented as of this encounter
--- OUTSIDE RECORDS SUMMARY | 2024-02-19 01:09 | XMS_ITS | Encounter Summary ---
[place] [address] Care Team Providers Care Boiler Assistant Operator Name Role Phone Aneta Perez Primary Care Provider [phone] Encounter Details Date Type Department Care Team ([facility] st Contact Info) Description 04/20/2020 [place] [phone] Mel Sevilla Social History Tobacco Use Types Packs/Day Years Used Date Smoking Tobacco: Every Day Cigarettes Smokeless Tobacco: Never Sex and Gender Information Value Date Recorded Sex Assigned at Not on file Gender Identity Not on file Sexual Orientation Not on file documented as of this encounter Miscellaneous Notes * Telephone Encounter - Mel Sevilla - 04/20/2020 8:44 AM EST Caitlyn calls from [facility] to ask for a PA for Liset Mcmillan's rituxan. Per Haley, this medication does not need a PA. Caitlyn at [facility] is requesting a reference number with initials of the person who obtained reference number. documented in this encounter Plan of Treatment Not on file documented as of this encounter Visit Diagnoses Not on filedocumented in this encounter Care Teams Boiler Assistant Operator Relationship Specialty Start Date End Date Aneta Perez PA [address] [place] [address] PCP - General Family Medicine 10/17/19 documented as of this encounter
--- OUTSIDE RECORDS SUMMARY | 2024-02-19 01:09 | XMS_ITS | Encounter Summary ---
[place] [address] Care Team Providers Care Procurement Assistant Name Role Phone Yanique Mandujano APRN Primary Care Provider [phone] Encounter Details Date Type Department Care Team (Late st Contact Info) Description 06/06/2019 Specialty [place] [phone] Miguel Parra Social History Tobacco Use Types [...] on filedocumented in this encounter Care Teams Procurement Assistant Relationship Specialty Start Date End Date Yanique Mandujano APRN [address] [place] [phone] PCP - General 04/23/10 10/16/19 documented as of this encounter
--- OUTSIDE RECORDS SUMMARY | 2024-02-19 01:09 | XMS_ITS | Encounter Summary ---
Author Organization [facility] Address [facility] [place] [address] Care Team Providers Care Consumer Experience Consultant Name Role Phone Aneta Perez Primary Care Provider [phone] Reason for Visit * Reason Comments Follow Up Surgery s/p tendon transfer dos 12/05/19 Encounter Details Date Type Department Care Team (Late st Contact Info) Description 12/15/2019 1:00 PM EDT Office Visit [place] [address] Ulises Parry MD [facility] [place] [address] Follow-up exam Social History Tobacco Use Types [...] examination documented in this encounter Care Teams Consumer Experience Consultant Relationship Specialty Start Date End Date Aneta Perez PA [address] [place], [place] [id number] PCP - General Family Medicine 10/17/19 documented as of this encounter
--- OUTSIDE RECORDS SUMMARY | 2024-02-19 01:09 | XMS_ITS | Encounter Summary ---
[place] [address] Care Team Providers Care Coal Mine Inspector Name Role Phone Aneta Perez Primary Care Provider [phone] Encounter Details Date Type Department Care Team (Late st Contact Info) Description 03/28/2020 Telephone [place] [phone] Do Esposito Social History Tobacco Use Types [...] on filedocumented in this encounter Care Teams Coal Mine Inspector Relationship Specialty Start Date End Date Aneta Perez PA [address] [place] [address] PCP - General Family Medicine 10/17/19 documented as of this encounter
--- OUTSIDE RECORDS SUMMARY | 2024-02-19 01:09 | XMS_ITS | Encounter Summary ---
Author Organization [facility] Address [facility] [place] [address] Care Team Providers Care J2Ee Application Developer Name Role Phone Aneta Perez Primary Care Provider [phone] Encounter Details Date Type Department Care Team (Late st Contact Info) Description 04/11/2020 11:45 AM EST Office Visit Occupational Therapy at [facility] [address] [place] [address] Liss Armstrong OT Tendon dysfunction Social History [...] 1. Tendon dysfunction 2. 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 She has not returned to work as an JACKSPOOLER. 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 Has good relationship with her OT [...] bursa documented in this encounter Care Teams J2Ee Application Developer Relationship Specialty Start Date End Date Aneta Perez PA [address] [place] [address] PCP - General Family Medicine 10/17/19 documented as of this encounter
--- OUTSIDE RECORDS SUMMARY | 2024-02-19 01:09 | XMS_ITS | Encounter Summary ---
Author Organization [facility] Address [facility] [place] [address] Care Team Providers Care Theatre Arts Professor Name Role Phone Yanique Mandujano MARIAH Primary Care Provider [phone] Reason for Referral * High Dollar Medication (Routine) - Closed Specialty Diagnoses / Procedures Referred By Contac t Referred To Contact Med Infusion Diagnoses Rheumatoid arthritis involving multiple sites with positive rheumatoid factor Zak Lee MD [facility] [place] [address] [facility] Med Infusion [address] [address] Referral ID Status Reason Start Date Expiration Date V isits Requested Visits Authorized [id number] Closed Consult, Test & Treat 10/03/2019 10/01/2020 2 2 Encounter Details Date Type Department Care Team (Late st Contact Info) Description 09/16/2019 Orders [place] [address] Zak Lee MD [facility] [place] [address] Rheumatoid arthritis involving multiple sites [...] factor documented in this encounter Care Teams Theatre Arts Professor Relationship Specialty Start Date End Date Yanique Mandujano APRN [address] [place] [address] PCP - General 04/23/10 10/16/19 documented as of this encounter
--- OUTSIDE RECORDS SUMMARY | 2024-02-19 01:09 | XMS_ITS | Encounter Summary ---
Author Organization [facility] [place] [address] Care Team Providers Care Adult Live In Caregiver Name Role Phone Aneta Perez Primary Care Provider [phone] Reason for Visit * High Dollar Medication (Routine) - Closed Specialty Diagnoses / Procedures Referred By Contdacia t Referred To Contact Med Infusion Diagnoses Rheumatoid arthritis involving multiple sites with positive rheumatoid factor Zak Lee MD [facility] [place] [address] [facility] Med Infusion [address] [place] [phone] Referral ID Status Reason Start Date Expiration Date V isits Requested Visits Authorized [id number] Closed Consult, Test & Treat 10/03/2019 10/01/2020 2 2 Encounter Details Date Type Department Care Team (Latest Contact Info) Description 10/17/2019 10:28 AM EDT - 10/17/2019 11:59 PM EDT Hospital Encounter [place] [address] Rheumatoid arthritis involving multiple sites [...] Take 1 tablet by mouth daily. 05/13/2018 [facility] ULTRA BLUE TEST STRIP Strip as needed. 01/25/2018 [facility] ULTRA2 Kit as needed. 01/25/2018 lamoTRIgine (LAMICTAL) [...] 1000 mg IV Administration times: See JUL 2nd day dosing schedule used. REACTIONS None. ASSESSMENT: [...] mg documented in this encounter Care Teams Adult Live In Caregiver Relationship Specialty Start Date End Date Aneta Perez PA [address] [place] [address] PCP - General Family Medicine 10/17/19 documented as of this encounter
--- OUTSIDE RECORDS SUMMARY | 2024-02-19 01:09 | XMS_ITS | Encounter Summary ---
Author Organization [facility] Address [facility] [place] [address] Care Team Providers Care Fruit Sorter Name Role Phone Aneta Perez Primary Care Provider [phone] Reason for Visit * Reason Comments Follow Up Surgery s/p tendon transfer Encounter Details Date Type Department Care Team (Late st Contact Info) Description 01/04/2020 8:30 AM EDT Office [place] [address] Ulises Parry MD [facility] [place] [address] Follow-up exam Social History Tobacco Use Types [...] one month Consider E-Stem treatment with - [facility]. Focus on PROM I, Do Esposito, have performed the documentation for this encounter in the presence of and acting as a scribe for Ulises Parry MD. documented in this encounter Plan of Treatment Not on file documented as of this encounter Visit Diagnoses Diagnosis Follow-up exam Unspecified follow-up examination documented in this encounter Care Teams Fruit Sorter Relationship Specialty Start Date End Date Aneta Perez PA [address] [place] [address] PCP - General Family Medicine 10/17/19 documented as of this encounter
--- OUTSIDE RECORDS SUMMARY | 2024-02-19 01:09 | XMS_ITS | Encounter Summary ---
Author Organization [facility] [place] [address] Care Team Providers Care Repairer Welding Equipment Name Role Phone Aneta Perez Primary Care Provider [phone] Reason for Visit * Reason Onset Date Comments Other 05/01/2020 Encounter Details Date Type Department Care Team (Late st Contact Info) Description 05/01/2020 Telephone [place] [address] Kvng Rust RN Other Social History Tobacco [...] sen them a script? Thanks, RTC to [facility] and they want it sent to her to take prior to the infusion. I called Liset Mcmillan and she agreed, and I see that Dr. Lee has already sent it to her pharmacy, thank you. * Telephone Encounter - Kvng Rust RN - 05/01/2020 4:12 PM EST RTC to Chelsie at [facility] and she reports that Liset Mcmillan had [...] on filedocumented in this encounter Care Teams Repairer Welding Equipment Relationship Specialty Start Date End Date Aneta Perez PA [address] [place] [address] PCP - General Family Medicine 10/17/19 documented as of this encounter
--- OUTSIDE RECORDS SUMMARY | 2024-02-19 01:09 | XMS_ITS | Encounter Summary ---
[place] [address] Care Team Providers Care Embroidery Cutter Name Role Phone Aneta Perez Primary Care Provider [phone] Reason for Visit * Reason Onset Date Comments Follow-up 04/16/2020 Encounter Details Date Type Department Care Team (Late st Contact Info) Description 04/16/2020 [place] [address] Juan Manuel Sapp RN Follow-up Social History [...] and the demographics of the patient to [place]. Height is 157.5 cm Given to nursing at [facility]. Called to advise of message above and was told that writing that a PA is not needed is not acceptable. They are requesting a reference # indicating this. Please fax to [phone] * Telephone Encounter - Juan Manuel Sapp RN - 04/17/2020 11:25 AM EST Call received from Caitlyn at [facility]. She states she received a referral but she is missing information. RTC to Caitlyn and she would like the PA, Demographics and Height faxed to [phone]. Caitlyn states they will schedule once the information is received. * Telephone Encounter - Juan Manuel Sapp RN - 04/16/2020 4:10 PM EST Liset calls to state that she does not know when she will receive her infusions. She is waiting to hear from [facility] about appointment. Liset reports her pain is [...] on filedocumented in this encounter Care Teams Embroidery Cutter Relationship Specialty Start Date End Date Aneta Perez PA [address] [place] [address] PCP - General Family Medicine 10/17/19 documented as of this encounter
--- OUTSIDE RECORDS SUMMARY | 2024-02-19 01:09 | XMS_ITS | Encounter Summary ---
Author Organization [facility] Address [facility] [place] [address] Care Team Providers Care Network Engineer Name Role Phone Yanique Mandujano MARIAH Primary Care Provider [phone] Reason for Visit * Reason Comments IV Medication * High Dollar Medication (Routine) - Specialty Diagnoses / Procedures Referred By Contac t Referred To Contact Med Infusion Diagnoses Rheumatoid arthritis involving multiple sites with positive rheumatoid factor Procedures TC RITUXIMAB, 10MG INJECTION RITUXAN Zak Lee MD [facility] [place] [address] [facility] Med Infusion [address] [place] [phone] Referral ID Status Reason Start Date Expiration Date V isits Requested Visits Authorized [id number] Consult, Test & Treat 12/08/2018 12/30/2018 2 2 Encounter Details Date Type Department Care Team (Latest Contact Info) Description 12/29/2018 7:59 AM EDT - 12/29/2018 11:59 PM EDT Hospital [place] [address] Rheumatoid arthritis, involving unspecified site, [...] Take 1 tablet by mouth daily. 05/13/2018 [facility] ULTRA BLUE TEST STRIP Strip as needed. 01/25/2018 [facility] ULTRA2 Kit as needed. 01/25/2018 lamoTRIgine (LAMICTAL) [...] against actual dose given at bedside by [facility] Rituxan 1000 mg IV Administration times: See MAR day dosing schedule used. REACTIONS None. ASSESSMENT: Tolerated infusion well. PLAN: Return to clinic as directed. documented in this encounter Plan of Treatment Not on file documented as of this encounter Visit Diagnoses Diagnosis Rheumatoid arthritis, involving unspecified site, unspecified rheumatoid factor presence documented in this encounter Administered Medications Inactive Administered Medications - up to 3 most recent administrations Medication Order [facility] Action Action Date Dose Rate Site diphenhydrAMINE [...] mg documented in this encounter Care Teams Network Engineer Relationship Specialty Start Date End Date Yanique Mandujano APRN [address] [place] [phone] PCP - General 04/23/10 10/16/19 documented as of this encounter
--- OUTSIDE RECORDS SUMMARY | 2024-02-19 01:09 | XMS_ITS | Encounter Summary ---
[place] [address] Care Team Providers Care Roll Hauler Name Role Phone Yanique Mandujano APRN Primary Care Provider [phone] Encounter Details Date Type Department Care Team (Late st Contact Info) Description 09/30/2019 Specialty [place] [phone] Maude Byrd, AUDIO VISUAL ENGINEER Social History Tobacco Use Types Packs/Day Years [...] on filedocumented in this encounter Care Teams Roll Hauler Relationship Specialty Start Date End Date Yanique Mandujano APRN [address] [place] [phone] PCP - General 04/23/10 10/16/19 documented as of this encounter
--- OUTSIDE RECORDS SUMMARY | 2024-02-19 01:09 | XMS_ITS | Encounter Summary ---
Author Organization [facility] [place] [address] Care Team Providers Care Automotive Technician Name Role Phone Aneta Perez Primary Care Provider [phone] Encounter Details Date Type Department Care Team (Late st Contact Info) Description 05/03/2020 Orders [place] [address] Zak Lee MD [facility] [place] [address] High risk medication use; Infusion reaction, subsequent [...] vomiting documented in this encounter Care Teams Automotive Technician Relationship Specialty Start Date End Date Aneta Perze PA [address] [place] [address] PCP - General Family Medicine 10/17/19 documented as of this encounter
--- OUTSIDE RECORDS SUMMARY | 2024-02-19 01:09 | XMS_ITS | Encounter Summary ---
Author Organization [facility] Address [facility] [place] [address] Care Team Providers Care Microwave Technician Name Role Phone Yanique Mandujano MARIAH Primary Care Provider [phone] Reason for Referral * High Dollar Medication (Routine) - Closed Specialty Diagnoses / Procedures Referred By Contac t Referred To Contact Med Infusion Diagnoses Rheumatoid arthritis, involving unspecified site, unspecified rheumatoid factor presence Zak Lee MD [facility] [place] [address] [facility] Med Infusion [address] [place] [phone] Referral ID Status Reason Start Date Expiration Date V isits Requested Visits Authorized [id number] Closed Consult, Test & Treat 12/16/2018 12/16/2019 2 2 Encounter Details Date Type Department Care Team (Late st Contact Info) Description 12/16/2018 Orders [place] [address] Zak Lee MD [facility] [place] [address] Rheumatoid arthritis, involving unspecified site, [...] presence documented in this encounter Care Teams Microwave Technician Relationship Specialty Start Date End Date Yanique Mandujano APRN [address] [place] [address] PCP - General 04/23/10 10/16/19 documented as of this encounter
--- OUTSIDE RECORDS SUMMARY | 2024-02-19 01:09 | XMS_ITS | Encounter Summary ---
Author Organization [facility] Address [facility] [address] Care Team Providers Care Bit Gatherer Name Role Phone Aneta Perez Primary Care Provider [phone] Encounter Details Date Type Department Care Team (Late st Contact Info) Description 04/11/2020 11:45 AM EST Office Visit Plastic Surgery at [address] [address] Ulises Parry MD [facility] [place] [address] Surgery follow-up Social History Tobacco Use Types [...] surgery documented in this encounter Care Teams Bit Gatherer Relationship Specialty Start Date End Date Aneta Perez PA [address] [place] [address] PCP - General Family Medicine 10/17/19 documented as of this encounter
--- OUTSIDE RECORDS SUMMARY | 2024-02-19 01:09 | XMS_ITS | Encounter Summary ---
Author Organization [facility] Address [facility] [place] [address] Care Team Providers Care Gang Boss Name Role Phone Aneta Perez Primary Care Provider [phone] Reason for Visit * Auth/Cert Specialty Diagnoses / Procedures Referred By Contdacia t Referred To Contact Diagnoses tendon rupture Procedures PRO TRANSPLANT/GRAFT PALM TENDON TRANSFER OR TRANSPLANT TENDON, PALMAR, W/ FREE TENDON GRAFT, EA (WRVU 9.86) Referral ID Status Reason Start Date Expiration Date Visits Re quested Visits Authorized [id number] 1 1 Encounter Details Date Type Department Care Team (Late st Contact Info) Description 12/05/2019 10:20 AM EDT - 12/05/2019 12:40 PM EDT Surgery [place] [address] [facility] [place] [address] TENOLYSIS, FLEXOR TENDON, PALM AND FINGER EACH [...] office hours: Thursday - Thursday 8am-5pm call [phone]. On weekends or after hours call [phone] and ask the monorail operator to page the plastic surgery resident director of food and nutrition services. PAIN MEDICATION: You were given a prescription [...] Thursday 8 am to 5 pm): Call [phone]. On weekends or after hours: Call [phone] and ask the monorail operator to speak to the Plastic Surgery Resident on-call. FOLLOW-UP APPOINTMENTS: You follow-up appointment has been scheduled. You should have an appointment in on 12/15/19 with in Plastic Surgery clinic for a postoperative follow- up. Please call [phone] if you have not received a phone [...] Center 12/15/2019 1:00 PM Ulises Parry MD [facility] [address] [place] [address] 12/15/2019 2:45 PM Tucker Wiggins, OT [facility] 04/03/2020 11:30 AM Zak Lee MD [facility] documented in this encounter Medications at [...] temperature will be taken, patient and caregiver/concrete mixing truck driver will be given a mask [...] file Gets together: Not on file Attends methodist service: Not on file Active member of [...] Parry MD - 12/05/2019 1:21 PM EDT [facility] Operative Note Patient Name: Liset Hager : [id number] MR#: [id number] Case Date: 12/05/2019 Surgeon: Surgeon(s) and Role: [...] Operative Note Patient Name: Liset Hager : [id number] MR#: [id number] Case Date: 12/05/2019 Surgeon: Surgeon(s) and Role: [...] Center 12/15/2019 1:00 PM Ulises Parry MD [facility] [address] [place] [address] 12/15/2019 2:45 PM Tucker Wiggins OT [facility] 04/03/2020 11:30 AM Zak Lee MD [facility] RHEUM [facility] documented in this encounter Plan of Treatment [...] Tenolysis Flex Tendon, Palm & Finger, Ea ([id number]) 12/05/2019 11:12 AM EDT Tendon rupture of [...] MD) documented in this encounter Care Teams Gang Boss Relationship Specialty Start Date End Date Aneta Perez PA [address] [place] [address] PCP - General Family Medicine 10/17/19 documented as of this encounter
--- OUTSIDE RECORDS SUMMARY | 2024-02-19 01:09 | XMS_ITS | Encounter Summary ---
Author Organization [facility] Address [facility] [place] [address] Care Team Providers Care Twisting Frame Changer Name Role Phone Aneta Perez Primary Care Provider [phone] Reason for Referral * Occupational Therapy (Routine) - Specialty Diagnoses / Procedures Referred By Roberto palomares Referred To Contact Occupational Therapy Diagnoses Tendon rupture of wrist, left, initial encounter No surgery date Ulises Parry MD [facility] [place] [address] [facility] Ot [address] [place] [address] Referral ID Status Reason Start Date Expiration Date V isits Requested Visits Authorized [id number] Evaluate and Treat 02/16/2020 02/15/2021 12 12 Reason for Visit * Reason Comments Follow Up Surgery s/p left index finge r tenolysis Encounter Details Date Type Department Care Team (Late st Contact Info) Description 02/16/2020 8:30 AM EDT Office [place] [address] Ulises Parry MD [facility] [place] [address] Tendon rupture of wrist, left, [...] Patient Instructions * Patient Instructions* Lubna Edward, [facility] - 02/16/2020 8:30 AM EDT You were [...] Day of Surgery You will need a water taxi driver. If you do not have a water taxi driver, your surgery will be canceled. DO [...] For questions pertaining to your surgical date [phone] For nursing related questions [phone] On weekends, holidays or after office hours: Call [phone] and ask the substation operator automatic to page the Plastic Surgery Resident custom decorating consultant. A corticosteroid, or steroid, injection is used [...] complication. Kenalog expiration date: 05/2021 Lot number: [id number] Xylocaine expiration date: 09/21 Lot number: [id number] Impression: Liset Hager is a 39 y.o. [...] Timeframe: one month Procedure: Tenolysis flexor CPT: 08590 Surgical site: index finger Side: left Anesthesia: [...] documented in this encounter Procedure Notes * lUises Parry MD - 02/16/2020 8:30 AM EDTAssociated [...] section) documented in this encounter Care Teams Twisting Frame Changer Relationship Specialty Start Date End Date Aneta Perez PA [address] [place] [address] PCP - General Family Medicine 10/17/19 documented as of this encounter
--- OUTSIDE RECORDS SUMMARY | 2024-02-19 01:09 | XMS_ITS | Encounter Summary ---
[place] [address] Care Team Providers Care Equipment Maintenance Supervisor Name Role Phone Aneta Perez Primary Care Provider [phone] Encounter Details Date Type Department Care Team (Late st Contact Info) Description 04/30/2020 [place] [phone] Dong Roldan Social History Tobacco Use Types [...] on filedocumented in this encounter Care Teams Equipment Maintenance Supervisor Relationship Specialty Start Date End Date Aneta Perez PA [address] [place] [address] PCP - General Family Medicine 10/17/19 documented as of this encounter
--- OUTSIDE RECORDS SUMMARY | 2024-02-19 01:09 | XMS_ITS | Encounter Summary ---
Author Organization [facility] Address [facility] [place] [address] Care Team Providers Care Aeronautical Design Engineer Name Role Phone Aneta Perez Primary Care Provider [phone] Encounter Details Date Type Department Care Team (Late st Contact Info) Description 04/03/2020 11:30 AM EST TH Visit (TeleHealth) [place] [address] Zak Lee MD [facility] [place] [address] High risk medication use; Rheumatoid arthritis involving multiple sites with positive rheumatoid factor; Graves disease; Tendon dysfunction; Other specified diabetes mellitus with other specified complication, unspecified whether terminal block assembler insulin use Social History Tobacco Use Types Packs/Day Years Used Date Smoking Tobacco: Every Day Cigarettes Smokeless Tobacco: Never Sex and Gender Information Value Date Recorded Sex Assigned at Not on file Gender Identity Not on file Sexual Orientation Not on file documented as of this encounter Progress Notes * Zak Lee MD - 04/03/2020 11:30 AM EST Rheumatology Clinic: Dr. Lee 04/03/2020 [id number] This is a TeleHealth telephone visit for [...] her next round of infusions done in [place] or [facility]. A lot has happened since that last visit. She has been diagnosed with a gastric ulcer by endoscopy up at [facility]. She became very symptomatic. She was on naproxen 500 mg twice a day for her arthritis. She was put on omeprazole and sucralfate by the editor & co founder. Her editor & co founder has no plan to rescope her unless [...] prior procedures done close to home in [place]. She will be seeing Dr. Parry tomorrow. [...] to get these infusions up in either [facility] or [place]. We will try and arrange that for [...] Total visit time: 25 min. Visit level: 96861. documented in this encounter Plan of Treatment Not on file documented as of this encounter Results * (ABNORMAL) Hemoglobin A1c (04/11/2020 1:10 PM EST) Hemoglobin A1c 7.5(H) 4.3 - 5.6 % [facility] Mellitus, Diabetes Care 2013; 36: Suppl. 1, S67-62 Estimated Average Glucose 168 mg/dL [facility] Comment: eAG equivalents for HbA1c [...] into estimated average glucose values. ??Diabetes Care 2008:31(8):5695-2790. Blood specimen (specimen) 04/11/2020 1:10 PM EST 04/11/2020 1:15 PM EST Narrative Resulting Agency Comment Spec In Lab Zak Lee MD CHEMISTRY ORDERAB LES Performing Organization Address [facility] Co de Phone Number [facility] [place] [address] * IgG (04/11/2020 1:10 PM EST) Immunoglobulin G 889 700 - 1,600 mg/dL [facility] Comment: Pediatric Reference Intervals obtained from the Caliper Reference Interval project. http://www.FitLinxx.ca/caliperproject/index.html Blood specimen (specimen) 04/11/2020 1:10 PM EST 04/11/2020 1:15 PM EST Narrative Resulting Agency Comment Spec In Lab Zak Lee MD CHEMISTRY ORDERAB LES Performing Organization Address [facility] Co de Phone Number [facility] [place] [address] * CRP, acute inflammation (04/11/2020 1:10 PM EST) C-Reactive Protein 3.0 <=4.9 mg/L [facility] Blood specimen (specimen) 04/11/2020 1:10 PM EST 04/11/2020 1:15 PM EST Narrative Resulting Agency Comment Spec In Lab Zak Lee MD CHEMISTRY ORDERAB LES Performing Organization Address [facility] Co de Phone Number [facility] [place] [address] * (ABNORMAL) Sedimentation rate (04/11/2020 1:10 PM EST) Sedimentation Rate Automated 55(H) 2 - 37 mm/hr [facility] Comment: Effective May 11, 2019 new capillary photometric technology has resulted in a change in reference ranges. It is recommended that each ESR result be reviewed with its own age appropriate reference range. Blood specimen (specimen) 04/11/2020 1:10 PM EST 04/11/2020 1:15 PM EST Narrative Resulting Agency Comment Spec In Lab Zak Lee MD HEMATOLOGY ORDERA BLES [facility] [place] [address] * (ABNORMAL) Comprehensive metabolic panel (non-fasting) (04/11/2020 1:10 PM EST) Glucose 312(H) 65 - 199 mg/dL [facility] Comment:Diabetes: >=200 mg/d L plus symptoms Blood Urea Nitrogen 10 8 - 18 mg/dL [facility] [...] 107 mmol/L [facility] Carbon Dioxide 21(L) 22 - 31 mmol/L [facility] Anion Gap 16(H) 5 - 15 mmol/L [facility] Calcium 9.7 8.5 - 10.5 mg/dL [facility] Protein, Total 8.1(H) 6.1 - 8.0 gm/dL [facility] Albumin 4.6 3.2 - 5.2 gm/dL [facility] Aspartate Aminotransferase 12 0 - 30 unit/L [facility] Alanine Aminotransferase 24 0 - 30 unit/L [facility] Alkaline Phosphatase 148(H) 35 - 105 unit/L [facility] Bilirubin, Total 0.2 0.2 - 1.3 mg/dL [facility] Est Glomerular Filtration Rate 92 >=60 mL/min/1. 73 m?? [facility] Comment: The eGFR was calculated using the CKD-EPI equation. As with all creatinine based estimates of kidney function, eGFR values calculated with the CKD-EPI equation are not accurate in patients with acute kidney failure, extremes of body mass or the acutely ill. [email or web address]/[employer] Biosciencenkf eGFR 107 >=60 mL/min/1. 73 m?? [facility] Comment: The eGFR was calculated using the CKD-EPI equation. As with all creatinine based estimates of kidney function, eGFR values calculated with the CKD-EPI equation are not accurate in patients with acute kidney failure, extremes of body mass or the acutely ill. [email or web address]/DHMCnkf Blood specimen (specimen) 04/11/2020 1:10 PM EST 04/11/2020 1:15 PM EST Narrative Resulting Agency Comment Spec In Lab Zak Lee MD CHEMISTRY ORDERAB LES [facility] [place] [address] documented in this encounter Visit Diagnoses Diagnosis High risk medication use Encounter for long-term (current) use of other medications Rheumatoid arthritis involving multiple sites with positive rheumatoid factor Graves disease Toxic diffuse goiter without mention of thyrotoxic crisis or storm Tendon dysfunction Unspecified disorder of synovium, tendon, and bursa Other specified diabetes mellitus with other specified complication, unspecified whether terminal block assembler insulin use documented in this encounter Care Teams Aeronautical Design Engineer Relationship Specialty Start Date End Date Aneta Perez PA [address] [place] [address] PCP - General Family Medicine 10/17/19 documented as of this encounter
--- OUTSIDE RECORDS SUMMARY | 2024-02-19 01:09 | XMS_ITS | Encounter Summary ---
[place] [address] Care Team Providers Care Instructional Technologist Name Role Phone Aneta Perez Primary Care Provider [phone] Encounter Details Date Type Department Care Team (Latest Contact Info) Description 04/11/2020 1:00 PM EST Laboratory Appointment Lab [address] [place] [id number] High risk medication use; Rheumatoid arthritis involving multiple sites with positive rheumatoid factor; Other specified diabetes mellitus with other specified complication, unspecified whether custodial insulin use Social History Tobacco Use Types [...] mellitus with other specified complication, unspecified whether intermediate frame tender insulin use HC IGG, SERUM Routine 04/11/2020 1:10 PM EST High risk medication use Rheumatoid arthritis involving multiple sites with positive rheumatoid factor COMPREHENSIVE METABOLIC PANEL Routine 04/11/2020 1:10 PM EST High risk medication use Rheumatoid arthritis involving multiple sites with positive rheumatoid factor Other specified diabetes mellitus with other specified complication, unspecified whether custodial insulin use documented in this encounter Results * (ABNORMAL) Differential, Automated (04/11/2020 1:10 PM EST) Neutrophil % 73.7 % [facility] Neutrophil Absolute 9.27(H) 1.70 - 6.10 x10(3)/mc L [facility] Lymph % 18.1 % [facility] Lymphocytes Abs 2.3 0.9 - 3.2 x10(3)/mc L [facility] Monocyte % 4.0 % [facility] Monocyte Abs 0.5 0.3 - 0.9 x10(3)/mc L [facility] Eos % 3.1 % [facility] Eosinophils Abs 0.4 0.0 - 0.4 x10(3)/mc L [facility] Basophil % 0.9 % [facility] Baso Absolute 0.1 0.0 - 0.1 x10(3)/mc L [facility] Immature Gran % 0.20 % [facility] Comment: Immature granulocytes(IG's)percentage and absolute count will include metamyelocytes, myelocytes, and promyelocytes. Blood smears from CBCs yielding IG's will be scanned manually for concordance. If this scan disagrees with the automated IG or if promyelocytes are noted, a manual differential will be performed. Immature Gran Absolute 0.03 0.00 - 0.04 x10(3)/mc L [facility] Blood specimen (specimen) 04/11/2020 1:10 PM EST 04/11/2020 1:15 PM EST Narrative Resulting Agency Comment Spec In Lab Zak Lee MD HEMATOLOGY ORDERA BLES Performing Organization Address City/State/[facility] Co de Phone Number [facility] [place] [address] * (ABNORMAL) Hemogram (04/11/2020 1:10 PM EST) White Blood Cell 12.6(H) 4.0 - 9.5 x10(3)/ L [facility] Red Blood Cell 4.31 4.00 - 5.21 x10(6)/ L [facility] Hemoglobin 14.0 11.7 - 15.5 gm/dL [facility] Hematocrit 41.3 35.7 - 45.8 % [facility] Mean Cell Volume 95.8(H) 82.6 - 94.4 fL [facility] Mean Cell Hemoglobin 32.5(H) 27.1 - 32.0 pg [facility] Mean Cell Hemoglobin Concentration 33.9 31.7 - 35.0 gm/dL [facility] Platelet 444(H) 145 - 357 x10(3)/ L [facility] RDW Standard Deviation 41.3 37.0 - 46.0 fL [facility] RDW coefficient of variation 11.9 11.5 - 14.1 % [facility] Mean Platelet Volume 9.1 7.6 - 12.9 fL [facility] NRBC% auto 0.0 % [facility] NRBC Absolute 0.000 0.000 - 0.000 x10(3)/ L [facility] Blood specimen (specimen) 04/11/2020 1:10 PM EST 04/11/2020 1:15 PM EST Narrative Resulting Agency Comment Spec In Lab Zak Lee MD HEMATOLOGY ORDERA BLES Performing Organization Address [facility] Co de Phone Number [facility] [place] [address] * (ABNORMAL) Sedimentation rate (04/11/2020 1:10 PM EST) Sedimentation Rate Automated 55(H) 2 - 37 mm/hr [facility] Comment: Effective May 11, 2019 new capillary photometric technology has resulted in a change in reference ranges. It is recommended that each ESR result be reviewed with its own age appropriate reference range. Blood specimen (specimen) 04/11/2020 1:10 PM EST 04/11/2020 1:15 PM EST Narrative Resulting Agency Comment Spec In Lab Zak Lee MD HEMATOLOGY ORDERA BLES Performing Organization Address [facility] de Phone Number [facility] [place] [address] * (ABNORMAL) Hemoglobin A1c (04/11/2020 1:10 PM EST) Hemoglobin A1c 7.5(H) 4.3 - 5.6 % [facility] Comment: Reference Range: 4.3 [...] Mellitus, Diabetes Care 2013; 36: Suppl. 1, Y97-26 Estimated Average Glucose 168 mg/dL [facility] [...] into estimated average glucose values. ??Diabetes Care 2008:31(8):6293-7173. Blood specimen (specimen) 04/11/2020 1:10 PM EST 04/11/2020 1:15 PM EST Narrative Resulting Agency Comment Spec In Lab Zak Lee MD CHEMISTRY ORDERAB LES [facility] [place] [address] * (ABNORMAL) Comprehensive metabolic panel (non-fasting) (04/11/2020 1:10 PM EST) Glucose 312(H) 65 - 199 mg/dL [facility] Comment:Diabetes: >=200 mg/d L plus symptoms Blood Urea Nitrogen 10 8 - 18 mg/dL [facility] Creatinine 0.81 0.70 - 1.20 mg/dL [facility] Sodium 136 135 - 145 mmol/L [facility] Potassium 3.9 3.5 - 5.0 mmol/L [facility] Comment: Please note: ??Patients with WBC >100,000 may have falsely elevated Potassium levels. ??For accurate Potassium quantification in these patients send serum separator tube (gold top) for subsequent determinations. ??Contact the Clinical Chemistry Laboratory if there are any questions. Chloride 99 98 - 107 mmol/L [facility] Carbon Dioxide 21(L) 22 - 31 mmol/L [facility] Anion Gap 16(H) 5 - 15 mmol/L [facility] Calcium 9.7 8.5 - 10.5 mg/dL [facility] Protein, Total 8.1(H) 6.1 - 8.0 gm/dL [facility] Albumin 4.6 3.2 - 5.2 gm/dL [facility] Aspartate Aminotransferase 12 0 - 30 unit/L [facility] Alanine Aminotransferase 24 0 - 30 unit/L [facility] Alkaline Phosphatase 148(H) 35 - 105 unit/L [facility] Bilirubin, Total 0.2 0.2 - 1.3 mg/dL [facility] Est Glomerular Filtration Rate 92 >=60 mL/min/1. 73 m?? [facility] Comment: The eGFR was calculated using the CKD-EPI equation. As with all creatinine based estimates of kidney function, eGFR values calculated with the CKD-EPI equation are not accurate in patients with acute kidney failure, extremes of body mass or the acutely ill. [email or web address] [email or web address] Healthnkf eGFR 107 >=60 mL/min/1. 73 m?? [facility] Comment: The eGFR was calculated using the CKD-EPI equation. As with all creatinine based estimates of kidney function, eGFR values calculated with the CKD-EPI equation are not accurate in patients with acute kidney failure, extremes of body mass or the acutely ill. [email or web address] [email or web address] Blood specimen (specimen) 04/11/2020 1:10 PM EST 04/11/2020 1:15 PM EST Narrative Resulting Agency Comment Spec In Lab Zak Lee MD CHEMISTRY ORDERAB LES [facility] [place] [address] * CRP, acute inflammation (04/11/2020 1:10 PM EST) C-Reactive Protein 3.0 <=4.9 mg/L [facility] Blood specimen (specimen) 04/11/2020 1:10 PM EST 04/11/2020 1:15 PM EST Narrative Resulting Agency Comment Spec In Lab Zak Lee MD CHEMISTRY ORDERAB LES Performing Organization Address City/[facility]/ZIP Co de Phone Number [facility] [place] [address] * IgG (04/11/2020 1:10 PM EST) Immunoglobulin G 889 700 - 1,600 mg/dL [facility] Comment: Pediatric Reference Intervals obtained from the Caliper Reference Interval project. http://www.Reelhouse.ca/caliperproject/index.html Blood specimen (specimen) 04/11/2020 1:10 PM EST 04/11/2020 1:15 PM EST Narrative Resulting Agency Comment Spec In Lab Zak Lee MD CHEMISTRY ORDERAB LES Performing Organization Address City/[facility] Co de Phone Number [facility] [place] [address] documented in this encounter Visit Diagnoses Diagnosis High risk medication use Encounter for long-term (current) use of other medications Rheumatoid arthritis involving multiple sites with positive rheumatoid factor Other specified diabetes mellitus with other specified complication, unspecified whether custodial insulin use documented in this encounter Care Teams Instructional Technologist Relationship Specialty Start Date End Date Aneta Perez PA [address] [place] [address] PCP - General Family Medicine 10/17/19 documented as of this encounter
--- OUTSIDE RECORDS SUMMARY | 2024-02-19 01:09 | XMS_ITS | Encounter Summary ---
[place] [address] Care Team Providers Care Payroll Administrator Name Role Phone Yanique Mandujano APRN Primary Care Provider [phone] Encounter Details Date Type Department Care Team (Late st Contact Info) Description 09/30/2019 Specialty [place] [phone] Maude Byrd, STEAM ROLLER OPERATOR Social History Tobacco Use Types Packs/Day Years [...] on filedocumented in this encounter Care Teams Payroll Administrator Relationship Specialty Start Date End Date Yanique Mandujano APRN [address] [place] [phone] PCP - General 04/23/10 10/16/19 documented as of this encounter
--- OUTSIDE RECORDS SUMMARY | 2024-02-19 01:09 | XMS_ITS | Encounter Summary ---
Author Organization [facility] Address [facility] [place] [address] Care Team Providers Care Farm Appraiser Name Role Phone Aneta Perez Primary Care Provider [phone] Reason for Referral * Occupational Therapy (Routine) - Closed Specialty Diagnoses / Procedures Referred By Roberto palomares Referred To Contact Diagnoses Tendon rupture of wrist, left, initial encounter Ulises Parry MD [facility] [place] [address] Unknown None Referral ID Status Reason Start Date Expiration Date V isits Requested Visits Authorized [id number] Closed Evaluate and Treat 04/04/2020 10/01/2020 12 12 Encounter Details Date Type Department Care Team (Late st Contact Info) Description 04/04/2020 8:45 AM EST Office Visit Plastic Surgery at [address] [address] Ulises Parry MD [facility] [place] [address] Tendon rupture of wrist, left, initial encounter [...] encounter documented in this encounter Care Teams Farm Appraiser Relationship Specialty Start Date End Date Aneta Perez PA [address] [place] [address] PCP - General Family Medicine 10/17/19 documented as of this encounter
--- OUTSIDE RECORDS SUMMARY | 2024-02-19 01:10 | XMS_ITS | Encounter Summary ---
Author Organization [facility] Address [address] [place] [address] Care Team Providers Care Director Of Enterprise Strategy Name Role Phone Aneta Perez Primary Care Provider [phone] Encounter Details Date Type Department Care Team (Late st Contact Info) Description 02/10/2020 Lab Requisition [facility] Pathology & Laboratory Medicine - [facility] [address] [place] [address] Outr Resulting Lab, Provider Social History Tobacco [...] rt-PCR Result NEGATIVE Negative 02/11/2020 15:36 EDT [facility] Comment: 2019-novel Coronavirus (2019-nCoV) [...] in accordance with CLIA regulations, College of [place] Pathologists (CAP) guidelines (Aug 18, 2019), and FDA guidance (Jul 30, 2019). This test is only for use under the Food and Drug Administration's Emergency Use Authorization. Swab ENTIRE NASOPHARYNX / Unknown 02/10/2020 10:58 EDT 02/10/2020 16:13 EDT Provider Outr Resulting Lab MICROBIOLOGY - GENERAL ORDERABLES [facility] [place], [place] * COVID-19 TESTING (02/10/2020 10:58 EDT) COVID-19 rt-PCR Result NEGATIVE Negative 02/11/2020 18:[address] [facility] Comment: 2019-novel Coronavirus (2019-nCoV) not detected [...] in accordance with CLIA regulations, College of [employer] Pathologists (CAP) guidelines (Aug 18, 2019), and FDA guidance (Jul 30, 2019). This test is only for use under the Food and Drug Administration's Emergency Use Authorization. Performing Lab [facility] 02/11/2020 18:09 EDT [facility] Swab 02/10/2020 10:5 8 EDT 02/10/2020 16:13 EDT Provider Outr Resulting Lab MICROBIOLOGY - GENERAL ORDERABLES [facility] [address] [place], [place] [id number] [place] [address] LABORATORY [place], [place] documented in this encounter Visit Diagnoses Not on filedocumented in this encounter Care Teams Director Of Enterprise Strategy Relationship Specialty Start Date End Date Aneta Perez PA [address] [place] [address] PCP - General 11/12/18 documented as of this encounter
--- OUTSIDE RECORDS SUMMARY | 2024-02-19 01:10 | XMS_ITS | Encounter Summary ---
Author Organization [facility] Address [address] [place] [address] Care Team Providers Care Facilities Specialist Name Role Phone Aneta Perez Primary Care Provider [phone] Encounter Details Date Type Department Care Team (Late st Contact Info) Description 07/31/2021 Lab Requisition [facility] Pathology & Laboratory Medicine - [facility] [address] [place] [address] Outr Resulting Lab, Provider Social History Tobacco [...] C Antibody Negative Negative 08/01/2021 10:07 EST [facility] Blood VENOUS BLOOD / Unknown 07/31/2021 11:50 EST 07/31/2021 21:30 EST Provider Outr Resulting Lab CHEMISTRY & BLOOD GAS ORDERABLES [facility] [address] [place] [address] documented in this encounter Visit Diagnoses Not on filedocumented in this encounter Care Teams Facilities Specialist Relationship Specialty Start Date End Date Aneta Perez PA [address] [place] [address] PCP - General 11/12/18 documented as of this encounter
--- OUTSIDE RECORDS SUMMARY | 2024-02-19 01:10 | XMS_ITS | Encounter Summary ---
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 08/28/2020 10:59 [facility] Attestation By the signature below, the attending physician certifies that they have 1) personally conducted a gross and/or microscopic examination of the described specimen(s), and/or personally interpreted the results of laboratory testing of the described specimen(s), and 2) personally rendered or confirmed the above diagnosis. 08/28/2020 10:59 [facility] at [address]59 Clinical History Hx duodenal ulcer, hiatal hernia 08/28/2020 10:59 [facility] Gross Description A. [...] D1Noe Zuñiga 08/25/2020 8:14 08/28/2020 10:59 EDT [facility] Performing Lab [facility] 10:59 EDT [facility] Scanned Images 08/28/2020 10:59 EDT [facility] Tissue ENTIRE ESOPHAGO-JOSE JUANCARLOS MUCOSAL JUNCTION / Unknown 08/24/2020 7:39 EDT 08/24/2020 16:27 EDT Tissue specimen (specimen) PYLORIC ANTRUM STRUCTURE / Unknown 08/24/2020 7:39 EDT 08/24/2020 16:27 EDT Tissue specimen (specimen) STOMACH STRUCTURE / Unknown 08/24/2020 7:39 EDT 08/24/2020 16:27 EDT Tissue specimen (specimen) CARDIOESOPHAGEAL JUNCTION STRUCTURE / Unknown 08/24/2020 7:39 EDT 08/24/2020 16:27 EDT Micaela Abraham DO PATHOLOGY ORDERABLES Performing Organization Address City/State/[facility] Co de Phone Number [facility] [address] [place] [address] documented in this encounter Visit Diagnoses Diagnosis [facility] (current) use of non-steroidal anti-inflammatories (nsaid) Personal [...] esophagus documented in this encounter Care Teams Carpet Cleaner Relationship Specialty Start Date End Date Aneta Perez PA [address] [place] [phone] PCP - General 11/12/18 documented as of this encounter
--- OUTSIDE RECORDS SUMMARY | 2024-02-19 01:10 | XMS_ITS | Encounter Summary ---
Author Organization [facility] Address [address] [place] [address] Care Team Providers Care Top Collar Baster Name Role Phone Yanique Mandujano APRN Primary Care Provider [phone] Encounter Details Date Type Department Care Team (Late st Contact Info) Description 11/09/2018 Results Only [facility] [phone] Chriss Delgado MD [address] [place] [phone] Social History Tobacco Use Types Packs/Day [...] ? LEANA MANDUJANO ? Accession #: ? [id number] ? : ? 1980 (Age: 38) ??F [...] soft tissue. No masses or lesions identified. Gut Snatcher sections are submitted in 1. BRODERICK Dill (ASCP) 11/11/2018 7:57 AM End of Report [facility] 11/09/2018 19:1 6 EDT 11/10/2018 19:16 EDT Chriss Delgado MD PATHOLOGY ORDERABLES [facility] [address] [place] [address] documented in this encounter Visit Diagnoses Not on filedocumented in this encounter Care Teams Top Collar Baster Relationship Specialty Start Date End Date Yanique Mandujano APRN PCP - General 04/04/15 11/11/18 documented as of this encounter
--- OUTSIDE RECORDS SUMMARY | 2024-02-19 01:10 | XMS_ITS | Encounter Summary ---
Author Organization [facility] Address [address] [place] [address] Care Team Providers Care Goat Driver Name Role Phone Aneta Perez Primary Care Provider [phone] Encounter Details Date Type Department Care Team (Late st Contact Info) Description 11/16/2019 Lab Requisition [facility] Pathology & Laboratory Medicine - [facility] [address] [place] [address] Outr Resulting Lab, Provider Social History Tobacco [...] Outr Resulting Lab MICROBIOLOGY - GENERAL ORDERABLES [facility] [address] [place] [address] * COVID-19 TESTING (11/16/2019 21:15 EDT) COVID-19 rt-PCR Result Negative Negative 11/17/2019 12:22 EDT [facility] Comment: This test has [...] history, and epidemiological information. Performed on the disco volante Fusion instrument Performing Lab [place] [facility] 11/17/2019 12:22 EDT [facility] Swab 11/16/2019 21:1 5 EDT 11/17/2019 8:41 EDT Provider Outr Resulting Lab MICROBIOLOGY - GENERAL ORDERABLES [facility] [address] [place] [address] documented in this encounter Visit Diagnoses Not on filedocumented in this encounter Care Teams Goat Driver Relationship Specialty Start Date End Date Aneta Perez PA [address] [place] [phone] PCP - General 11/12/18 documented as of this encounter
--- OUTSIDE RECORDS SUMMARY | 2024-02-19 01:10 | XMS_ITS | Encounter Summary ---
[place] [address] Care Team Providers Care Ged Tutor Name Role Phone Yanique Mandujano DIVERSITY SPECIALIST Primary Care Provider [phone] Reason for Visit * Consultation (Routine) - Closed Specialty Diagnoses / Procedures Referred By Roberto palomares Referred To Contact Endocrinology Diagnoses autoimmune thyroiditis Yanique Mandujano, MARIAH [address] [place] [address] [facility] Endocrinology [address] [place] [phone] Referral ID Status Reason Start Date Expiration Date V isits Requested Visits Authorized [id number] Closed Consult, Test & Treat [facility] 06/10/2016 06/10/2017 1 1 Encounter Details Date Type Department Care Team (Late st Contact Info) Description 07/15/2016 8:00 AM EST Office [place] [address] Chao Malik DO [facility] [place] [address] Shruthi Mai MD [facility] [place] [address] Hyperthyroidism Social History Tobacco Use [...] noted previously she was referred [place]ocr[place] [facility] [place]. Thyroid Compressive symptoms: [...] DM Social History lives with brother. 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 Liset's initial labs [...] them as documented. Chao Malik DO, MS Barn Handfront end loader operator Section of Endocrinology [facility] documented in this encounter Plan of Treatment Not on file documented as of this encounter Procedures Procedure Name Priority Date/Time Associated Diagnosis Comments T3 TOTAL Routine 07/15/2016 9:08 AM EST Hyperthyroidism TSH Routine 07/15/2016 9:08 AM EST Hyperthyroidism T4, FREE Routine 07/15/2016 9:08 AM EST Hyperthyroidism documented in this encounter Results * T3 Total (07/15/2016 9:08 AM EST) T3 Total 157 75 - 170 ng/dL [facility] Blood specimen (specimen) 07/15/2016 9:08 AM EST 07/15/2016 9:17 AM EST Narrative Resulting Agency Comment Spec In Lab Chao Malik DO CHEMISTRY ORDERABLES Performing Organization Address City/[facility]/ZIP Co de Phone Number [facility] [place] [address] * T4, free (07/15/2016 9:08 AM EST) Free T4 1.01 0.93 - 1.70 ng/dL [facility] Blood specimen (specimen) 07/15/2016 9:08 AM EST 07/15/2016 9:17 AM EST Narrative Resulting Agency Comment Spec In Lab Chao Malik DO CHEMISTRY ORDERABLES Performing Organization Address City/[facility]/ZIP Co de Phone Number [facility] [place] [address] * TSH (07/15/2016 9:08 AM EST) Thyroid Stimulating Hormone 2.72 0.27 - 4.20 mcIU/mL [facility] Blood specimen (specimen) 07/15/2016 9:08 AM EST 07/15/2016 9:17 AM EST Narrative Resulting Agency Comment Spec In Lab Chao Malik DO CHEMISTRY ORDERABLES Performing Organization Address City/[facility]/[place] Co de Phone Number [facility] [place] [address] documented in this encounter Visit Diagnoses Diagnosis Hyperthyroidism Thyrotoxicosis without mention of goiter or other cause, without mention of thyrotoxic crisis or storm documented in this encounter Care Teams Ged Tutor Relationship Specialty Start Date End Date Yanique Mandujano APRN [address] [place] [phone] PCP - General 04/23/10 10/16/19 documented as of this encounter
--- OUTSIDE RECORDS SUMMARY | 2024-02-19 01:10 | XMS_ITS | Encounter Summary ---
Author Organization [facility] Address [facility] [place] [address] Care Team Providers Care Electric Shaver Mechanic Name Role Phone Yanique Mandujano APRN Primary Care Provider [phone] Reason for Referral * High Dollar Medication (Routine) - Specialty Diagnoses / Procedures Referred By Contac t Referred To Contact Med Infusion Diagnoses Rheumatoid arthritis involving multiple sites with positive rheumatoid factor Procedures TC RITUXIMAB, 10MG INJECTION RITUXAN Zak Lee MD [facility] [place] [address] [facility] Med Infusion [address] [place] [phone] Referral ID Status Reason Start Date Expiration Date V isits Requested Visits Authorized [id number] Consult, Test & Treat 12/08/2018 12/30/2018 2 2 Encounter Details Date Type Department Care Team (Late st Contact Info) Description 12/08/2018 Orders [place] [address] Zak Lee MD [facility] [place] [address] Rheumatoid arthritis involving multiple sites [...] factor documented in this encounter Care Teams Electric Shaver Mechanic Relationship Specialty Start Date End Date Yanique Mandujano APRN [address] [place] [phone] PCP - General 04/23/10 10/16/19 documented as of this encounter
--- OUTSIDE RECORDS SUMMARY | 2024-02-19 01:10 | XMS_ITS | Referral Summary ---
Author Organization [facility] Address [address] [place] [address] Care Team Providers Care Oracle Drm Consultant Name Role Phone Aneta Perez Primary Care Provider Encounters Date Type Department Care Team Description 01/26/2024 Lab Requisition [facility] Pathology & Laboratory Medicine - [facility] [address] [place] [address] Bridger Randolph MD Unspecified abdominal pain from Last 3 Months Social History Tobacco Use Types Packs/Day Years [...] Date/Time Associated Diagnosis Comments SURGICAL PATHOLOGY Today 01/26/2024 11 :23 EDT Unspecified abdominal pain HEPATITIS C AB W REFLEX TO HCV RNA BY PCR Routine 07/31/2021 11:50 EST from Last 3 Months or Most Recently Relevant to Health Maintenance Results * SURGICAL PATHOLOGY (01/26/2024 11:23 EDT) Note to Patient The following pathology results have been interpreted by your pathologist and may be available to you before your health provider has had the opportunity to review them. Please allow time for your provider to receive these results and explore management options, if applicable. 01/28/2024 14:32 EDT [facility] Final Diagnosis A. STOMACH, ANTRUM, BIOPSY: - Gastric antral mucosa with reactive/chemical gastropathy. - Negative for Helicobacter pylori-type organisms. B. STOMACH, BODY, BIOPSY: - Gastric oxyntic mucosa with no significant histopathologic change. - Negative for Helicobacter pylori-type organisms. C. STOMACH, FUNDUS, BIOPSY: - Gastric oxyntic mucosa with no significant histopathologic change. - Negative for Helicobacter pylori-type organisms. D. ESOPHAGUS, DISTAL, BIOPSY: - Cardio-oxyntic mucosa with mild chronic inflammation; negative for intestinal metaplasia. - Separate squamous mucosa with mild reactive epithelial changes. 01/28/2024 14:32 [facility] Attestation By the signature below, the attending physician certifies that they have 1) personally conducted a gross and/or microscopic examination of the described specimen(s), and/or personally interpreted the results of laboratory testing of the described specimen(s), and 2) personally rendered or confirmed the above diagnosis. 01/28/2024 14:32 [facility] at 1432 Clinical History Screening colonoscopy and EGD, hx of GERD, hiatal hernia, gastritis, small hiatal hernia, internal hemorrhoids 01/28/2024 14:32 [facility] Gross Description A. Received in formalin labelled with proper patient identification (initials F, B) and 1. Antrum bx are 2 vargas tissues (0.3 x 0.2 x 0.1 cm and 0.7 x 0.3 x 0.1 cm). Entirely submitted in A1. B. Received in formalin labelled with proper patient identification (initials F, B) and 2. Body bx is a vargas-brown tissue (0.5 x 0.3 x 0.2 cm). Entirely submitted in B1. C. Received in formalin labelled with proper patient identification (initials F, B) and 3. Fundus is a vargas-brown tissue (0.9 x 0.3 x 0.2 cm). Entirely submitted in C1. D. Received in formalin labelled with proper patient identification (initials F, B) and 4. Distal esophagus are 4 white-vargas tissues (0.3 x 0.3 x 0.1 cm to 0.5 x 0.1 x 0.1 cm). Entirely submitted in D1. BRODERICK CH(ASCP) 01/27/2024 7:48 01/28/2024 14:32 EDT [facility] Performing Lab [facility] 14:32 EDT [facility] Scanned Images 01/28/2024 14:32 EDT [facility] Tissue ESOPHAGEAL STRUCTURE / Unknown 01/26/2024 11:23 EDT 01/26/2024 22:59 EDT Tissue specimen (specimen) STOMACH STRUCTURE / Unknown 01/26/2024 11:23 EDT 01/26/2024 22:59 EDT Tissue specimen (specimen) GASTRIC FUNDUS STRUCTURE / Unknown 01/26/2024 11:23 EDT 01/26/2024 22:59 EDT Tissue specimen (specimen) ESOPHAGEAL STRUCTURE / Unknown 01/26/2024 11:23 EDT 01/26/2024 22:59 EDT Bridger Randolph MD PATHOLOGY [place] [facility] [address] [place] [address] * HEPATITIS C AB W REFLEX TO HCV RNA BY PCR (07/31/2021 11:50 EST) Hep C Antibody Negative Negative 08/01/2021 10:07 EST [facility] Blood VENOUS BLOOD / Unknown 07/31/2021 11:50 EST 07/31/2021 21:30 EST Provider Outr Resulting Lab CHEMISTRY & BLOOD GAS ORDERABLES [facility] [address] [place] [address] from Last 3 Months or Most Recently Relevant to Health Maintenance Care Teams Oracle Drm Consultant Relationship Specialty Start Date End Date Aneta Peerz PA [address] [place] [phone] PCP - General 11/12/18
--- OUTSIDE RECORDS SUMMARY | 2024-02-19 01:10 | XMS_ITS | Encounter Summary ---
Author Organization [facility] [place] [address] Care Team Providers Care Director Of Product Management Name Role Phone Yanique Mandujano MARIAH Primary Care Provider [phone] Encounter Details Date Type Department Care Team (Late st Contact Info) Description 03/01/2014 [place] [phone] Tato Joe MD [address] [place] [address] Social History Tobacco Use Types Packs/Day Years [...] Surgical Pathology Report (03/01/2014 1:40 PM EDT) Final Diagnosis ? [facility] ? Provider: ?? CAMELIA, ? Pt. Name: ?? DELBERTFABIAN ?TATO ? Acc #: ?[id number] ?Pt. ? Col Date: ?? 03/01/2014 ? 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 [facility] ? Provider: ?? CAMELIA, ? Pt. Name: ?? FABIAN MANDUJANO ?TAOT ? Acc #: ?[id number] ?Pt. ? Col Date: ?? 03/01/2014 ? /Sex: ?1980,(33 years),Female ? Rec Date: ?? 03/02/2014 ? LOC: ?[facility] ? SURGICAL PATHOLOGY ? Referring Identifier: ??[id number] 03/03/2014 3:40 PM EDT [facility] ENDOCERVICAL STRUCTURE / Unknown 03/01/2014 1:40 PM EDT 03/01/2014 1:40 PM EDT ENDOCERVICAL STRUCTURE / Unknown 03/01/2014 1:40 PM EDT 03/01/2014 1:40 PM EDT Tato Joe MD PATHOLOGY/CYTOLO GY ORDERABLES Performing Organization Address [facility]/State/ZIP Co de Phone Number [facility] [place] [address] documented in this encounter Visit Diagnoses Not on filedocumented in this encounter Care Teams Director Of Product Management Relationship Specialty Start Date End Date Yanique Mandujano, MARIAH [address] [place] [address] PCP - General 04/23/10 10/16/19 documented as of this encounter
--- OUTSIDE RECORDS SUMMARY | 2024-02-19 01:10 | XMS_ITS | Encounter Summary ---
Author Organization [facility] [place] [address] Care Team Providers Care Home Service Demonstrator Name Role Phone Yanique Mandujano APRN Primary Care Provider [phone] Encounter Details Date Type Department Care Team (Late st Contact Info) Description 07/15/2016 Tele[place] [phone] Shruthi Mai MD [facility] [place] [address] Social History Tobacco Use Types Packs/Day Years [...] on filedocumented in this encounter Care Teams Home Service Demonstrator Relationship Specialty Start Date End Date Yanique Mandujano APRN [address] [place] [phone] PCP - General 04/23/10 10/16/19 documented as of this encounter
--- OUTSIDE RECORDS SUMMARY | 2024-02-19 01:10 | XMS_ITS | Encounter Summary ---
Author Organization [facility] Address [address] [place] [address] Care Team Providers Care Neonatal Surgeon Name Role Phone Unavailable Primary Care Provider Unavailabl e Encounter Details Date Type Department Care Team (Late st Contact Info) Description 12/02/2007 Before PRISM Converted Visit (Maple) [facility] conversion [address] [place] [address] Omid Javier, DO [address] [place] [address] Social History Tobacco Use Types Packs/Day Years [...] ? FYSH, DIOGENES ? Accession #: ? [id number] ? : ? 1980 (Age: 27) ??F ? Collect Date: ? 12/02/2007 ? Location: ? [facility] ? Receive Date: ? 12/02/2007 ? Provider: OMID MITZ DO ? Copy to: JAMIL NELIA TRAUMA DOCTOR ? Final Pathologic Diagnosis: ? A. ?Duodenum, [...] pain/GERD ? Gross Description: ? [facility] Fysh and 2nd portion of ? duodenum are four portions of vargas-pink soft tissue averaging 0.2 x 0.1 x 0.1 ?? cm. ??Submitted in toto as (A). ? [facility] labelled Fysh and antrum is a 0.2 x 0.2 x ?? 0.1 cm portion of vargas-pink soft tissue. ??Submitted intact as (B). ? [facility] Fysh and esophagus at 34 cm are two portions of vargas-white soft tissue averaging 0.1 x 0.1 x 0.1 cm. ??Submitted in ?? toto as (C). ??(Corrine Moreno/oscar ? End of Report ? TYRONE VALERIO 12/02/2007 12/02/2007 9:3 3 EDT Omid Javier DO PATHOLOGY ORDERABLES [facility] [address] [place] [address] documented in this encounter Visit Diagnoses Not on filedocumented in this encounter
--- OUTSIDE RECORDS SUMMARY | 2024-02-19 01:10 | XMS_ITS | Encounter Summary ---
Author Organization [facility] Address [address] [place] [address] Care Team Providers Care Calciminer Name Role Phone Aneta Perez Primary Care Provider [phone] Encounter Details Date Type Department Care Team (Late st Contact Info) Description 07/31/2021 Lab Requisition [facility] Pathology & Laboratory Medicine - [facility] [address] [place] [address] Outr Resulting Lab, Provider Social History Tobacco [...] 4th Generation Negative Negative 08/01/2021 10:31 EST [facility] Comment:If acute HIV-1 infec tion is suspected in a high risk patient, submit plasma specimen for HIV-1 RNA quantitation test. Blood VENOUS BLOOD / Unknown 07/31/2021 11:50 EST 07/31/2021 21:30 EST Narrative [facility] - 08/01/2021 10:31 EST Fourth Generation assay performed on the Siemens Centaur XPT. Provider Outr Resulting Lab IMMUNOLOGY A ND SEROLOGY ORDERABLES [facility] [address] [place] [address] documented in this encounter Visit Diagnoses Not on filedocumented in this encounter Care Teams Calciminer Relationship Specialty Start Date End Date Aneta Perez PA [address] [place] [id number] PCP - General 11/12/18 documented as of this encounter
--- OUTSIDE RECORDS SUMMARY | 2024-02-19 01:10 | XMS_ITS | Encounter Summary ---
Author Organization [facility] [place] [address] Care Team Providers Care Canopy Inspector Name Role Phone Yanique Mandujano APRN Primary Care Provider [phone] Encounter Details Date Type Department Care Team (Late st Contact Info) Description 11/30/2018 10:30 AM EDT Office [place] [address] Zak Lee MD [facility] [place] [address] [place] [address] Rheumatoid arthritis involving multiple sites with positive [...] AM EDT Rheumatology Clinic: Dr. Lee 11/30/2018 [id number] Liset Hager is seen in follow-up of her seropositive rheumatoid arthritis. We saw her one andonly one time back on 06/02/2018. She has been followed by Dr. Morgan in [place] for about 2 yearsbefore she retired. The [...] discussing these problems and their treatmentoptions in [id number] counseling. Orders Placed This Encounter Procedures ??? [...] medications documented in this encounter Care Teams Canopy Inspector Relationship Specialty Start Date End Date Yanique Mandujano APRN [address] [place] [phone] PCP - General 04/23/10 10/16/19 documented as of this encounter
--- OUTSIDE RECORDS SUMMARY | 2024-02-19 01:10 | XMS_ITS | Encounter Summary ---
Author Organization [facility] Address [address] [place] [address] Care Team Providers Care Tax Auditor Name Role Phone Aneta Perez Primary Care Provider [phone] Encounter Details Date Type Department Care Team (Late st Contact Info) Description 01/26/2024 Lab Requisition [facility] Pathology & Laboratory Medicine - [place] [facility] [address] [place] [address] Bridger Randolph MD [address] [place] [phone] Unspecified abdominal pain Social History Tobacco Use Types Packs/Day Years [...] 01/26/2024 11 :23 EDT Unspecified abdominal pain documented in this encounter Results * SURGICAL PATHOLOGY (01/26/2024 11:23 EDT) Note to Patient The following pathology results have been interpreted by your pathologist and may be available to you before your health provider has had the opportunity to review them. Please allow time for your provider to receive these results and explore management options, if applicable. 01/28/2024 14:32 [facility] Final Diagnosis A. STOMACH, ANTRUM, [...] with mild reactive epithelial changes. 01/28/2024 14:32 [facility] Attestation By the signature below, the attending physician certifies that they have 1) personally conducted a gross and/or microscopic examination of the described specimen(s), and/or personally interpreted the results of laboratory testing of the described specimen(s), and 2) personally rendered or confirmed the above diagnosis. 01/28/2024 14:32 [facility] at 1432 Clinical History Screening colonoscopy and EGD, hx of GERD, hiatal hernia, gastritis, small hiatal hernia, internal hemorrhoids 01/28/2024 14:32 [facility] Gross Description A. [...] BRODERICK CH(ASCP) 01/27/2024 7:48 01/28/2024 14:32 EDT [facility] Performing Lab [facility] 14:32 EDT [facility] Scanned Images 01/28/2024 14:32 EDT [facility] Tissue ESOPHAGEAL STRUCTURE / Unknown 01/26/2024 11:23 EDT 01/26/2024 22:59 EDT Tissue specimen (specimen) STOMACH STRUCTURE / Unknown 01/26/2024 11:23 EDT 01/26/2024 22:59 EDT Tissue specimen (specimen) GASTRIC FUNDUS STRUCTURE / Unknown 01/26/2024 11:23 EDT 01/26/2024 22:59 EDT Tissue specimen (specimen) ESOPHAGEAL STRUCTURE / Unknown 01/26/2024 11:23 EDT 01/26/2024 22:59 EDT Bridger Randolph MD PATHOLOGY [place] [facility] [address] [place] [address] documented in this encounter Visit Diagnoses Diagnosis Unspecified abdominal pain documented in this encounter Care Teams Tax Auditor Relationship Specialty Start Date End Date Aneta Perez PA [address] [place] [phone] PCP - General 11/12/18 documented as of this encounter
--- OUTSIDE RECORDS SUMMARY | 2024-02-19 01:10 | XMS_ITS | Encounter Summary ---
Author Organization [facility] [place] [address] Care Team Providers Care Storage Management Architect Name Role Phone Yanique Mandujano APRN Primary Care Provider [phone] Reason for Visit * Reason Onset Date Comments Other 06/10/2018 Encounter Details Date Type Department Care Team (Late st Contact Info) Description 06/10/2018 [place] [phone] Momo Knight RN Other Social History Tobacco [...] EST Patient was unable to get into [facility] for labs. She has since reset [...] on filedocumented in this encounter Care Teams Storage Management Architect Relationship Specialty Start Date End Date Yanique Mandujano APRN [address] [place] [address] PCP - General 04/23/10 10/16/19 documented as of this encounter
--- OUTSIDE RECORDS SUMMARY | 2024-02-19 01:10 | XMS_ITS | Encounter Summary ---
Author Organization [facility] [place] [address] Care Team Providers Care Director Museum Or Zoo Name Role Phone Yanique Mandujano APRN Primary Care Provider [phone] Reason for Referral * High Dollar Medication (Routine) - Closed Specialty Diagnoses / Procedures Referred By Contac t Referred To Contact Med Infusion Diagnoses Rheumatoid arthritis involving multiple sites with positive rheumatoid factor Procedures TC RITUXIMAB, 10MG INJECTION Zak Lee MD [facility] [place] [address] [facility] Med Infusion [address] [place] [phone] Referral ID Status Reason Start Date Expiration Date V isits Requested Visits Authorized [id number] Closed Consult, Test & Treat 06/02/2018 06/02/2019 2 2 Reason for Visit * Consultation (Routine) - Specialty Diagnoses / Procedures Referred By Contac t Referred To Contact Rheumatology Diagnoses RA Yanique Mandujano, MARIAH [address] [place] [address] [facility] Rheumatology [address] [place] [phone] Referral ID Status Reason Start Date Expiration Date V isits Requested Visits Authorized [id number] Consult, Test & Treat [facility] 02/04/2018 02/04/2019 1 1 Encounter Details Date Type Department Care Team (Late st Contact Info) Description 06/02/2018 10:00 AM EST Office Visit Rheumatology at [facility] [place] [place] [phone] Zak Lee MD [facility] [place] [address] Rheumatoid arthritis involving multiple sites with positive [...] and x-rays today at 3[facility]. Call or [facility] for results if you don't hear from us by next week. Further recommendations based on test results. We'll start prior authorization process for Rituxan. Read about the medicine on the web ([email or web address]) Continue Humira for now. Follow up in 6 months. Call if problems or concerns. documented in this encounter Progress Notes * Zak Lee MD - 06/02/2018 10:00 AM EST Rheumatology Clinic: Dr. Lee 06/02/2018 [id number] Liset Mandujano is a 37 y.o. female patient whom we see in consultation for Yanique Mandujano APRN in evaluation of rheumatoid arthritis. She was a woman who was diagnosed with rheumatoid arthritisabout [address] Morgan in [place]. She was tried on prednisone, but that [...] Morgan is giving up her practice in [place]. The patient has had no significant infections [...] weak in her hands. 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 She is having [...] problems. 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 Unfortunately, she smokes a pack of cigarettes [...] delay, hopefully we can get them done [facility]. Today we will go ahead and [...] Read about the medicine on the web (CuralatenTurpitude) Continue Humira for now. Follow up in [...] Cigarette smoker 5. Graves disease Results for LISET MANDUJANO ( ) Ref. Range 06/02/2018 12:05 [...] positive rheumatoid factor COMPREHENSIVE METABOLIC PANEL Routine 06/02/2018 12:05 PM EST Rheumatoid arthritis involving multiple sites with positive rheumatoid factor High risk medication use documented in this encounter Results * (ABNORMAL) Differential, Automated (06/02/2018 12:05 PM EST) Neutrophil % 63.5 % [facility] Neutrophil Absolute 8.46(H) 1.70 - 6.10 x10(3)/[facility] Lymph % 25.5 % [facility] Lymphocytes Abs 3.4(H) 0.9 - 3.2 x10(3)/[facility] Monocyte % 4.7 % [facility] Monocyte Abs 0.6 0.3 - 0.9 x10(3)/[facility] Eos % 4.9 % [facility] Eosinophils Abs 0.7(H) 0.0 - 0.4 x10(3)/[facility] Basophil % 1.1 % [facility] Baso Absolute 0.2(H) 0.0 - 0.1 x10(3)/[facility] Immature Gran % 0.30 % [facility] Comment: Immature granulocytes(IG's)percentage and absolute count will include metamyelocytes, myelocytes, and promyelocytes. Blood smears from CBCs yielding IG's will be scanned manually for concordance. If this scan disagrees with the automated IG or if promyelocytes are noted, a manual differential will be performed. Immature Gran Absolute 0.04 0.00 - 0.04 x10(3)/ L [facility] Blood specimen (specimen) 06/02/2018 12:05 PM EST 06/02/2018 12:09 PM EST Narrative Resulting Agency Comment Spec In Lab Zak Lee MD HEMATOLOGY ORDERA BLES [facility] [place] [address] * (ABNORMAL) Hemogram (06/02/2018 12:05 PM EST) White Blood Cell 13.4(H) 4.0 - 9.5 x10(3)/[facility] Red Blood Cell 4.73 4.00 - 5.21 x10(6)/mc L [facility] Hemoglobin 14.8 11.7 - 15.5 gm/dL [facility] Hematocrit 44.1 35.7 - 45.8 % [facility] Mean Cell Volume 93.2 82.6 - 94.4 fL [facility] Mean Cell Hemoglobin 31.3 27.1 - 32.0 pg [facility] Mean Cell Hemoglobin Concentration 33.6 31.7 - 35.0 gm/dL [facility] Platelet 427(H) 145 - 357 x10(3)/mc L [facility] RDW Standard Deviation 40.5 37.0 - 46.0 fL [facility] RDW coefficient of variation 11.6 11.5 - 14.1 % [facility] Mean Platelet Volume 9.1 7.6 - 12.9 fL [facility] NRBC% auto 0.0 % [facility] NRBC Absolute 0.000 0.000 - 0.000 x10(3)/mc L [facility] Blood specimen (specimen) 06/02/2018 12:05 PM EST 06/02/2018 12:09 PM EST Narrative Resulting Agency Comment Spec In Lab Zak Lee MD HEMATOLOGY ORDERA BLES Performing Organization Address City/[facility]/ZIP Co de Phone Number [facility] [place] [address] * Hepatitis B Surface Antigen (06/02/2018 12:05 PM EST) Hepatitis B Surface Antigen Negative Negative [facility] Blood specimen (specimen) 06/02/2018 12:05 PM EST 06/02/2018 12:09 PM EST Narrative Resulting Agency Comment Spec In Lab Zak Lee MD CHEMISTRY ORDERAB LES Performing Organization Address City/[facility]/ZIP Co de Phone Number [facility] [place] [address] * Hepatitis B Surface Antibody (06/02/2018 12:05 PM EST) Pathologist [facility] Hepatitis B Surface Antibody, Quantitative 641.9 IU/L [facility] Comment: HepB Surface Ab Quant: Unvaccinated: < 8.5 IU/L Vaccinated: > 11.5 IU/L Hepatitis B Surface Antibody Positive [facility] Comment: Patient is considered to be immune to HBV infection. Expected Results: Vaccinated: Positive Unvaccinated: Negative Blood specimen (specimen) 06/02/2018 12:05 PM EST 06/02/2018 12:09 PM EST Narrative Resulting Agency Comment Spec In Lab Zak Lee MD CHEMISTRY ORDERAB LES [facility] [place] [address] * Hepatitis B Core Antibody, Total (06/02/2018 12:05 PM EST) Pathologist [facility] Hepatitis B Core Antibody Negative Negative [facility] Blood specimen (specimen) 06/02/2018 12:05 PM EST 06/02/2018 12:09 PM EST Narrative Resulting Agency Comment Spec In Lab Zak Lee MD CHEMISTRY ORDERAB LES [facility] [place] [address] * QuantiFERON-TB Gold (06/02/2018 12:05 PM EST) Pathologist [facility] Quantiferon Nil 0.020 IU/mL [facility] QFT TB Ag1-Nil 0.020 IU/mL [facility] QFT TB Ag2-Nil 0.010 IU/mL [facility] Quantiferon Mitogen-Nil >10.000 IU/mL [facility] Quantiferon-TB Gold Negative Negative [facility] Quantiferon Tb Interp M. tuberculosis infection NOT likely A [...] affect immune function, or other immunological factors. [facility] Comment: The performance of the [...] Lab Zak Lee MD CHEMISTRY ORDERAB LES [facility] [place] [address] * (ABNORMAL) Cyclic Citrullinated Peptide (06/02/2018 12:05 PM EST) Cyclic Citrulline Peptide 123.2(H) <=4.9 unit/mL [facility] Comment: An updated CCP assay reagent was implemented 09/11/16. Please note the modified reference interval. Blood specimen (specimen) 06/02/2018 12:05 PM EST 06/02/2018 12:09 PM EST Narrative Resulting Agency Comment Spec In Lab Zak Lee MD CHEMISTRY ORDERAB LES Performing Organization Address [facility] Co de Phone Number [facility] [place] [address] * (ABNORMAL) Rheumatoid factor, quant (06/02/2018 12:05 PM EST) Rheumatoid Factor 165(H) <=14 IU/mL [facility] Blood specimen (specimen) 06/02/2018 12:05 PM EST 06/02/2018 12:09 PM EST Narrative Resulting Agency Comment Spec In Lab Zak Lee MD CHEMISTRY ORDERAB LES Performing Organization Address [facility] Co de Phone Number [facility] [place] [address] * CRP, acute inflammation (06/02/2018 12:05 PM EST) C-Reactive Protein 3.0 <=4.9 mg/L [facility] Blood specimen (specimen) 06/02/2018 12:05 PM EST 06/02/2018 12:09 PM EST Narrative Resulting Agency Comment Spec In Lab Zak Lee MD CHEMISTRY ORDERAB LES Performing Organization Address [facility] Co de Phone Number [facility] [place] [address] * Sedimentation rate (06/02/2018 12:05 PM EST) Sedimentation Rate Automated 18 0 - 20 mm/hr [facility] Blood specimen (specimen) 06/02/2018 12:05 PM EST 06/02/2018 12:09 PM EST Narrative Resulting Agency Comment Spec In Lab Zak Lee MD HEMATOLOGY ORDERA BLES [facility] [place] [address] * (ABNORMAL) Comprehensive metabolic panel (non-fasting) (06/02/2018 12:05 PM EST) Glucose 94 65 - 199 mg/dL [facility] Comment:Diabetes: >=200 mg/d L plus symptoms Blood Urea Nitrogen 6(L) 8 - 18 mg/dL [facility] Creatinine 0.76 0.70 - 1.20 mg/dL [facility] Sodium 136 135 - 145 mmol/L [facility] Potassium 4.3 3.5 - 5.0 mmol/L [facility] Comment: Please note: ??Patients with WBC >100,000 may have falsely elevated Potassium levels. ??For accurate Potassium quantification in these patients send serum separator tube (gold top) for subsequent determinations. ??Contact the Clinical Chemistry Laboratory if there are any questions. Chloride 97(L) 98 - 107 mmol/L [facility] Carbon Dioxide 23 22 - 31 mmol/L [facility] Anion Gap 16(H) 5 - 15 mmol/L [facility] Calcium 9.4 8.5 - 10.5 mg/dL [facility] Protein, Total 8.3(H) 6.1 - 8.0 gm/dL [facility] Albumin 4.2 3.2 - 5.2 gm/dL [facility] Aspartate Aminotransferase 14 0 - 30 unit/L [facility] Alanine Aminotransferase 16 0 - 30 unit/L [facility] Alkaline Phosphatase 154(H) 40 - 104 unit/L [facility] Bilirubin, Total 0.3 0.2 - 1.3 mg/dL [facility] Est Glomerular Filtration Rate 101 >=60 mL/min/1. 73 m?? [facility] Comment: The eGFR was calculated using the CKD-EPI equation. As with all creatinine based estimates of kidney function, eGFR values calculated with the CKD-EPI equation are not accurate in patients with acute kidney failure, extremes of body mass or the acutely ill. http://TaskBeat/DHMCnkf eGFR 117 >=60 mL/min/1. 73 m?? [facility] Comment: The eGFR was calculated using the CKD-EPI equation. As with all creatinine based estimates of kidney function, eGFR values calculated with the CKD-EPI equation are not accurate in patients with acute kidney failure, extremes of body mass or the acutely ill. [email or web address]/[facility] TULSAnkf Blood specimen (specimen) 06/02/2018 12:05 PM EST 06/02/2018 12:09 PM EST Narrative Resulting Agency Comment Spec In Lab Zak Lee MD CHEMISTRY ORDERAB LES [facility] [place] [id number] * XR Hands Min 3 views Bilat [...] factor documented in this encounter Care Teams Director Museum [employer] Zoo Relationship Specialty Start Date End Date Yanique Mandujano APRN [address] [place] [phone] PCP - General 04/23/10 10/16/19 documented as of this encounter
--- OUTSIDE RECORDS SUMMARY | 2024-02-19 01:10 | XMS_ITS | Encounter Summary ---
Author Organization [facility] Address [address] [place] [address] Care Team Providers Care Fence Post Driver Name Role Phone Aneta Perez Primary Care Provider [phone] Encounter Details Date Type Department Care Team (Latest Contact Info) Description 05/07/[address] [facility] Pathology & Laboratory Medicine - [facility] [address] [place] [address] Do Parisi, HOUSE CLEANER [address] [place] [address] Encounter for screening for malignant neoplasm of [...] types, PCR Negative Negative 05/15/2021 8:42 [facility] Comment:No E6 or E7 mRNA is detected from HPV types 16,18,31,33,35,39,45,51,52,56,58,59,66, and 68 by lamp shades supervisor mediated amplification. Papanicolaou smear specimen (specimen) CERVIX UTERI STRUCTURE / Unknown 05/06/2021 10:30 EST 05/13/2021 14:53 EST Do Parisi HOUSE CLEANER MICROBIOLOGY - GE NERAL ORDERABLES [facility] [address] [place] [address] * PAP TEST (05/06/2021 10:30 EST) Specimens A. Cervix and/or Endocervix , ThinPrep Imaging System with Manual Evaluation 05/15/2021 8:42 [facility] Specimen Adequacy Satisfactory for Evaluation - transformation zone component present 05/15/2021 8:42 [facility] General Categorization Negative for intraepithelial lesion or malignancy 05/15/2021 8:42 [facility] Descriptive Diagnosis Shift in sona present suggestive of bacterial vaginosis. 05/15/2021 8:42 [facility] Attestation . 05/15/2021 8:42 [facility] at 0842 Clinical History See below 05/15/20 8:42 [facility] HPV The result for the Human Papillomavirus (HPV) Detection-High Risk Types is Negative. No E6 or E7 mRNA is detected from HPV types 16,18,31,33,35,39 ,45,51,52,56,58,5 9,66, and 68 by lamp shades supervisor mediated amplification.Allie ting was performed on specimen [id number] and was resulted on 05/15/2021 0838 EST by MICHELLE, LAB INSTRUMENT RESULTS IN 05/15/2021 8:42 EST [facility] Performing Lab [facility] 05/15/2021 8:42 EST [facility] Scanned Images 05/15/2021 8:42 EST [facility] Papanicolaou smear specimen (specimen) CERVIX UTERI STRUCTURE / Unknown 05/06/2021 10:30 EST 05/07/2021 15:02 EST Do Parisi HOUSE CLEANER PATHOLOGY ORDERAB LES [facility] [address] [place] [address] documented in this encounter Visit Diagnoses Diagnosis Encounter for screening for malignant neoplasm of cervix Screening for malignant neoplasm of the cervix Encounter for screening for human papillomavirus (HPV) Special screening examination for human papillomavirus (HPV) documented in this encounter Care Teams Fence Post Driver Relationship Specialty Start Date End Date Aneta Perez PA [address] [place] [address] PCP - General 11/12/18 documented as of this encounter
--- OUTSIDE RECORDS SUMMARY | 2024-02-19 01:10 | XMS_ITS | Encounter Summary ---
Author Organization [facility] [place] [address] Care Team Providers Care Customer Service Sales Consultant Name Role Phone Yanique Mandujano APRN Primary Care Provider [phone] Encounter Details Date Type Department Care Team (Late st Contact Info) Description 07/18/2016 Telephone [place] [phone] Nemo Quiñonez LPN Social History Tobacco Use [...] on filedocumented in this encounter Care Teams Customer Service Sales Consultant Relationship Specialty Start Date End Date Yanique Mandujano, MARIAH [address] [place] [phone] PCP - General 04/23/10 10/16/19 documented as of this encounter
--- OUTSIDE RECORDS SUMMARY | 2024-02-19 01:10 | XMS_ITS | Encounter Summary ---
Author Organization [facility] Address [facility] [place] [address] Care Team Providers Care Inspector Golf Ball Name Role Phone Yanique Mandujano APRN Primary Care Provider [phone] Reason for Visit * Reason Comments Headache Encounter Details Date Type Department Care Team (Late st Contact Info) Description 01/04/2011 3:04 PM EDT - 01/04/2011 7:53 PM EDT [place] [address] Rodney Luna MD [facility] [address] [place] [address] Yanique Cast MD [facility] [address] [place] [address] Headache Discharge Disposition: Home Social History Tobacco [...] Care Everywhere. * HEADACHE: AFTER YOUR VISIT ([place]) documented in this encounter Medications at Time [...] years ago that was 8 cm in [place], [place]. Pt states she was supposed to [...] RN) documented in this encounter Care Teams Inspector Golf Ball Relationship Specialty Start Date End Date Yanique Mandujano APRN [address] [place] [phone] PCP - General 04/23/10 10/16/19 documented as of this encounter
--- OUTSIDE RECORDS SUMMARY | 2024-02-19 01:10 | XMS_ITS | Encounter Summary ---
Author Organization [facility] [place] [address] Care Team Providers Care Personal Banking Assistant Name Role Phone Yanique Mandujano SUPERVISOR POWDER AND PRIMER CANNING Primary Care Provider [phone]- [phone] Encounter Details Date Type Department Care Team (Late st Contact Info) Description 06/02/2018 Ancillary Procedure Radiology Library at [facility] [place] [address] Yanique Mandujano APRN [address] [place] [phone] Social History Tobacco Use Types Packs/Day Years [...] DX Hand (06/02/2018 12:00 AM EST) Narrative JASBIR - 10/05/2019 2:38 PM EDT This exam is auto-finalizing. It's purpose is for storage only. Yanique Mandujano APRN IMG FILM LIBRARY O RDERABLES [facility] Mary Jane MD documented in this encounter Visit Diagnoses Not on filedocumented in this encounter Care Teams Personal Banking Assistant Relationship Specialty Start Date End Date Yanique Mandujano, MARIAH [address] [place] [phone] PCP - General 04/23/10 10/16/19 documented as of this encounter
--- OUTSIDE RECORDS SUMMARY | 2024-02-19 01:10 | XMS_ITS | Encounter Summary ---
Author Organization [facility] Address [address] [place] [address] Care Team Providers Care State Fire Marshal Name Role Phone Aneta Perez Primary Care Provider [phone] Encounter Details Date Type Department Care Team (Late st Contact Info) Description 02/13/2020 Lab Requisition [facility] Pathology & Laboratory Medicine - [facility] [address] [place] [address] Micaela Abraham, DO [address] [place] [address] Encounter for other general examination Social History [...] mucosa with mild reflux esophagitis. 02/16/2020 12:03 [facility] Diagnosis Comment ANTIBODY(CLONE)(BLOCK ):RESULT H pylori (Rabbit Monoclonal (SP48), [place]) (C1): Negative NOTE: One or more of [...] performance characteristics have been determined by [facility] and/or by the referring laboratory. The positive [...] high complexity clinical laboratory testing. 02/16/2020 12:03 [facility] Attestation By the signature below, the attending physician certifies that they have 1) personally conducted a gross and/or microscopic examination of the described specimen(s), and/or personally interpreted the results of laboratory testing of the described specimen(s), and 2) personally rendered or confirmed the above diagnosis. 02/16/2020 12:03 [facility] at 1203 Clinical History Epigastric and RUQ pain; nausea/vomiting 02/16/2020 12:03 [facility] Gross Description A. Received in [...] entirely in F1. 02/13/2020 16:08 02/16/2020 12:03 [facility] Performing Lab [facility] 02/16/2020 12:03 [facility] Scanned Images 02/16/2020 12:03 [facility] Tissue ENTIRE ESOPHAGUS / Unknown [...] 15:38 EDT Micaela Abraham DO PATHOLOGY ORDERABLES [facility] [address] [place] [address] documented in this encounter Visit Diagnoses Diagnosis Encounter for other general examination documented in this encounter Care Teams State Fire Marshal Relationship Specialty Start Date End Date Aneta Perez PA [address] [place], [place] [phone] PCP - General 11/12/18 documented as of this encounter
--- OUTSIDE RECORDS SUMMARY | 2024-02-19 01:10 | XMS_ITS | Encounter Summary ---
Author Organization [facility] Address [address] [place] [address] Care Team Providers Care Environmental Solutions Engineer Name Role Phone Aneta Perez Primary Care Provider Encounter Details Date Type Department Care Team (Late st Contact Info) Description 12/26/2022 Lab Requisition [facility] Pathology & Laboratory Medicine - [facility] [address] [place] [address] Outr Resulting Lab, Provider Social History Tobacco [...] 6 - 24 % 12/29/2022 15:44 EDT [facility] CD20 <1(L) 6 - 24 % 12/29/2022 15:44 EDT [facility] Blood VENOUS BLOOD / Unknown 12/26/2022 7:35 EDT 12/26/2022 17:37 EDT Narrative [facility] - 12/29/2022 15:44 EDT Analyte Specific Reagent. ??This test was developed and its performance characteristics determined by Laboratory Medicine and Pathology, [facility]. This test has not been cleared [...] Resulting Lab IMMUNOLOGY A ND SEROLOGY ORDERABLES [facility] [address] [place] [address] documented in this encounter Visit Diagnoses Not on filedocumented in this encounter Care Teams Environmental Solutions Engineer Relationship Specialty Start Date End Date Aneta Perez PA [address] [place] [address] PCP - General 11/12/18 documented as of this encounter
--- OUTSIDE RECORDS SUMMARY | 2024-02-19 01:10 | XMS_ITS | Encounter Summary ---
Author Organization [facility] Address [address] [place] [address] Care Team Providers Care Reforestation Worker Name Role Phone Aneta Perez Primary Care Provider [phone] Encounter Details Date Type Department Care Team (Late st Contact Info) Description 01/27/2023 Lab Requisition [facility] Pathology & Laboratory Medicine - [facility] [address] [place] [address] Outr Resulting Lab, Provider Social History Tobacco [...] gonorrhoeae Result Negative Negative 01/28/2023 13:47 EDT [facility] Chlamydia trachomatis Result Negative Negative 01/28/2023 13:47 EDT [facility] Swab VAGINAL STRUCTURE / Unknown 01/27/2023 11:40 EDT 01/27/2023 22:29 EDT Provider Outr Resulting Lab MICROBIOLOGY - GENERAL ORDERABLES [facility] [address] [place] [address] documented in this encounter Visit Diagnoses Not on filedocumented in this encounter Care Teams Reforestation Worker Relationship Specialty Start Date End Date Aneta Perez PA [address] [place] [address] PCP - General 11/12/18 documented as of this encounter
--- OUTSIDE RECORDS SUMMARY | 2024-02-19 01:10 | XMS_ITS | Encounter Summary ---
Author Organization [facility] Address [address] [place] [address] Care Team Providers Care Assembly Member Name Role Phone Aneta Perez Primary Care Provider [phone] Encounter Details Date Type Department Care Team (Late st Contact Info) Description 12/26/2022 Lab Requisition [facility] Pathology & Laboratory Medicine - [facility] [address] [place] [address] Outr Resulting Lab, Provider Social History Tobacco [...] 610 - 1,616 mg/dL 12/29/2022 10:03 EDT [facility] Blood VENOUS BLOOD / Unknown 12/26/2022 7:35 EDT 12/26/2022 17:36 EDT Provider Outr Resulting Lab CHEMISTRY & BLOOD GAS ORDERABLES [facility] [address] [place] [address] documented in this encounter Visit Diagnoses Not on filedocumented in this encounter Care Teams Assembly Member Relationship Specialty Start Date End Date Aneta Perez PA [address] [place] [address] PCP - General 11/12/18 documented as of this encounter
--- OUTSIDE RECORDS SUMMARY | 2024-02-19 01:10 | XMS_ITS | Encounter Summary ---
Author Organization [facility] [place] [address] Care Team Providers Care Dry House Attendant Name Role Phone Yanique Mandujano MARIAH Primary Care Provider [phone] Reason for Visit * High Dollar Medication (Routine) - Closed Specialty Diagnoses / Procedures Referred By Contac t Referred To Contact Med Infusion Diagnoses Rheumatoid arthritis involving multiple sites with positive rheumatoid factor Procedures TC RITUXIMAB, 10MG INJECTION Zak Lee MD [facility] [address] [facility] Med Infusion [address] [place] [phone] Referral ID Status Reason Start Date Expiration Date V isits Requested Visits Authorized [id number] Closed Consult, Test & Treat 06/02/2018 06/02/2019 2 2 Encounter Details Date Type Department Care Team (Latest Contact Info) Description 06/16/2018 8:30 AM EST - 06/16/2018 11:59 PM EST Hospital [place] [address] Rheumatoid arthritis involving multiple sites [...] Take 1 tablet by mouth daily. 05/13/2018 HivelyTOUCH ULTRA BLUE TEST STRIP Strip as needed. 01/25/2018 QuenchUCH ULTRA2 Kit as needed. 01/25/2018 lamoTRIgine (LAMICTAL) [...] mLs documented in this encounter Care Teams Dry House Attendant Relationship Specialty Start Date End Date Yanique Mandujano APRN [address] [place] [phone] PCP - General 04/23/10 10/16/19 documented as of this encounter
--- OUTSIDE RECORDS SUMMARY | 2024-02-19 01:10 | XMS_ITS | Clinical Summary ---
Author Organization [facility] Address [address] [place] [address] Care Team Providers Care Terminal Supervisor Name Role Phone Aneta Perez Primary Care Provider [phone] Encounters Date Type Department Care Team Description 01/26/2024 Lab Requisition [facility] Pathology & Laboratory Medicine - [facility] [address] [place] [address] Bridger Randolph MD Unspecified abdominal pain from [...] 3-dose series) 09/22 COVID-19 Vaccine ( season) 2024 Hepatitis C Screen Completed 07/31/2021 Procedures Procedure [...] explore management options, if applicable. 01/28/2024 14:32 [facility] Final Diagnosis A. [...] with mild reactive epithelial changes. 01/28/2024 14:32 [facility] Attestation By the signature below, the attending physician certifies that they have 1) personally conducted a gross and/or microscopic examination of the described specimen(s), and/or personally interpreted the results of laboratory testing of the described specimen(s), and 2) personally rendered or confirmed the above diagnosis. 01/28/2024 14:32 [facility] at 1432 Clinical History Screening colonoscopy and EGD, hx of GERD, hiatal hernia, gastritis, small hiatal hernia, internal hemorrhoids 01/28/2024 14:32 [facility] Gross Description A. [...] BRODERICK CH(ASCP) 01/27/2024 7:48 01/28/2024 14:32 EDT [facility] Performing Lab [facility] 14:32 EDT [facility] Scanned Images 01/28/2024 14:32 EDT [facility] Tissue ESOPHAGEAL STRUCTURE / Unknown 01/26/2024 11:23 EDT 01/26/2024 22:59 EDT Tissue specimen (specimen) STOMACH STRUCTURE / Unknown 01/26/2024 11:23 EDT 01/26/2024 22:59 EDT Tissue specimen (specimen) GASTRIC FUNDUS STRUCTURE / Unknown 01/26/2024 11:23 EDT 01/26/2024 22:59 EDT Tissue specimen (specimen) ESOPHAGEAL STRUCTURE / Unknown 01/26/2024 11:23 EDT 01/26/2024 22:59 EDT Bridger Randolph MD PATHOLOGY [place] [facility] [address] [place] [address] * HEPATITIS C AB W REFLEX TO HCV RNA BY PCR (07/31/2021 11:50 EST) Hep C Antibody Negative Negative 08/01/2021 10:07 EST [facility] Blood VENOUS BLOOD / Unknown 07/31/2021 11:50 EST 07/31/2021 21:30 EST Provider Outr Resulting Lab CHEMISTRY & BLOOD GAS ORDERABLES [facility] [address] [place] [address] from Last 3 Months or Most Recently Relevant to Health Maintenance Care Teams Terminal Supervisor Relationship Specialty Start Date End Date Aneta Perez PA [address] [place] [id number] PCP - General 11/12/18
--- OUTSIDE RECORDS SUMMARY | 2024-02-19 01:10 | XMS_ITS | Encounter Summary ---
Author Organization [facility] Address [address] [place] [address] Care Team Providers Care Product Development Consultant Name Role Phone Aneta Perez Primary Care Provider [phone] Encounter Details Date Type Department Care Team (Late st Contact Info) Description 07/18/2023 Lab Requisition [facility] Pathology & Laboratory Medicine - [facility] [address] [place] [address] Outr Resulting Lab, Provider Social History Tobacco [...] Negative Negative 07/19/2023 14:21 EST [facility] Chlamydia trachomatis Result Negative Negative 07/19/2023 14:21 EST [facility] Swab VAGINAL STRUCTURE / Unknown 07/17/2023 16:20 EST 07/18/2023 21:32 EST Provider Outr Resulting Lab MICROBIOLOGY - GENERAL ORDERABLES [facility] [address] [place] [address] documented in this encounter Visit Diagnoses Not on filedocumented in this encounter Care Teams Product Development Consultant Relationship Specialty Start Date End Date Aneta Perez PA [address] [place], [place] [phone] PCP - General 11/12/18 documented as of this encounter
--- OUTSIDE RECORDS SUMMARY | 2024-02-19 01:10 | XMS_ITS | Encounter Summary ---
Author Organization [facility] Address [address] [place] [address] Care Team Providers Care Training Director Name Role Phone Yanique Mandujano APRN Primary Care Provider Encounter Details Date Type Department Care Team (Latest Contact Info) Description 11/09/2018 10:04 EDT - 11/09/2018 23:59 EDT Hospital Encounter [address] [address] Unknown, Provider, Discharge Disposition: Home or Self Care Social History Tobacco Use Types Packs/Day Years Used Date Smoking Tobacco: Never Assessed Sex and Gender Information Value Date Recorded Sex Assigned at Not on file Gender Identity Not on file Sexual Orientation Not on file documented as of this encounter Discharge Disposition Disposition Code Departure Means Destination Home or Self [facility] documented in this encounter Plan of Treatment Not on file documented as of this encounter Visit Diagnoses Not on filedocumented in this encounter Care Teams Training Director Relationship Specialty Start Date End Date Yanique Mandujano APRN PCP - General 04/04/15 11/11/18 documented as of this encounter
--- OUTSIDE RECORDS SUMMARY | 2024-02-19 01:10 | XMS_ITS | Encounter Summary ---
Author Organization [facility] Address [facility] [place] [address] Care Team Providers Care Tobacco Dipper Name Role Phone Yanique Mandujano RISK INVESTIGATOR Primary Care Provider [phone] Encounter Details Date Type Department Care Team (Late st Contact Info) Description 06/02/2018 11:40 AM EST - 06/02/2018 11:59 PM EST Hospital Encounter XRay at [address] [place] [address] Zak Lee MD [facility] [place] [address] Rheumatoid arthritis involving multiple sites with positive [...] factor documented in this encounter Care Teams Tobacco Dipper Relationship Specialty Start Date End Date Yanique Mandujano APRN [address] [place] [phone] PCP - General 04/23/10 10/16/19 documented as of this encounter
--- OUTSIDE RECORDS SUMMARY | 2024-02-19 01:10 | XMS_ITS | Encounter Summary ---
Author Organization [facility] [place] [address] Care Team Providers Care Grocery Stock Clerk Name Role Phone Yanique Mandujano APRN Primary Care Provider [phone]- [phone] Encounter Details Date Type Department Care Team (Late st Contact Info) Description 09/07/2018 Ancillary Procedure Radiology Library at [facility] [place] [address] Yanique Mandujano APRN [address] [place] [phone] Social History Tobacco Use Types Packs/Day Years [...] MR Wrist (09/07/2018 12:00 AM EDT) Narrative JASBIR - 10/05/2019 2:41 PM EDT This exam is auto-finalizing. It's purpose is for storage only. Yanique Mandujano APRN IMG FILM LIBRARY O RDERABLES [facility] Mary Jane LA documented in this encounter Visit Diagnoses Not on filedocumented in this encounter Care Teams Grocery Stock Clerk Relationship Specialty Start Date End Date Yanique Mandujano APRN [address] [place] [phone] PCP - General 04/23/10 10/16/19 documented as of this encounter
--- OUTSIDE RECORDS SUMMARY | 2024-02-19 01:10 | XMS_ITS | Encounter Summary ---
Author Organization [facility] Address [facility] [place] [address] Care Team Providers Care Environmental Scientists Name Role Phone Yanique Mandujano MARIAH Primary Care Provider [phone] Reason for Visit * Reason Comments IV Medication * High Dollar Medication (Routine) - Closed Specialty Diagnoses / Procedures Referred By Contac t Referred To Contact Med Infusion Diagnoses Rheumatoid arthritis involving multiple sites with positive rheumatoid factor Procedures TC RITUXIMAB, 10MG INJECTION Zak Lee MD [facility] [place] [address] [facility] Med Infusion [address] [place] [phone] Referral ID Status Reason Start Date Expiration Date V isits Requested Visits Authorized [id number] Closed Consult, Test & Treat 06/02/2018 06/02/2019 2 2 Encounter Details Date Type Department Care Team (Latest Contact Info) Description 07/01/2018 8:17 AM EST - 07/01/2018 11:59 PM EST Hospital En[place] [address] Rheumatoid arthritis involving multiple sites [...] Take 1 tablet by mouth daily. 05/13/2018 ActivityHeroTOUCH ULTRA BLUE TEST STRIP Strip as needed. 01/25/2018 Tuva LabsUCH ULTRA2 Kit as needed. 01/25/2018 lamoTRIgine (LAMICTAL) [...] 36.8 ??C (98.2 ??F) (Oral) Resp 20 [id number]% IF PAIN >5, INTERVENTION AND EFFECTIVENESS: na [...] to 3 most recent administrations Medication Order [facility] Action Action Date Dose Rate [...] mg documented in this encounter Care Teams Environmental Scientists Relationship Specialty Start Date End Date Yanique Mandujano APRN [address] [place] [phone] PCP - General 04/23/10 10/16/19 documented as of this encounter
--- OUTSIDE RECORDS SUMMARY | 2024-02-19 01:10 | XMS_ITS | Encounter Summary ---
Author Organization [facility] Address [address] [place] [address] Care Team Providers Care Cashier Credit Name Role Phone Aneta Perez Primary Care Provider [phone] Encounter Details Date Type Department Care Team (Late st Contact Info) Description 05/10/2021 Lab Requisition [facility] Pathology & Laboratory Medicine - [facility] [address] [place] [address] Outr Resulting Lab, Provider Social History Tobacco [...] gonorrhoeae Result Negative Negative 05/13/2021 15:21 EST [facility] Chlamydia trachomatis Result Negative Negative 05/13/2021 15:21 EST [facility] Swab ENTIRE ENDOCERVIX / Unknown 05/10/2021 11:55 EST 05/10/2021 22:10 EST Provider Outr Resulting Lab MICROBIOLOGY - GENERAL ORDERABLES [facility] [address] [place] [address] documented in this encounter Visit Diagnoses Not on filedocumented in this encounter Care Teams Cashier Credit Relationship Specialty Start Date End Date Aneta Perez PA [address] [place] [address] PCP - General 11/12/18 documented as of this encounter
--- OUTSIDE RECORDS SUMMARY | 2024-02-19 01:10 | XMS_ITS | Encounter Summary ---
Author Organization [facility] [place] [address] Care Team Providers Care Web Software Engineer Name Role Phone Yanique Mandujano MANAGED CARE MANAGER Primary Care Provider [phone]- [phone] Encounter Details Date Type Department Care Team (Late st Contact Info) Description 12/08/2018 Ancillary Procedure Radiology Library at [facility] [place] [phone] Yanique Mandujano APRN [address] [place] [phone] Social History Tobacco Use Types Packs/Day Years [...] DX Hand (12/08/2018 12:00 AM EDT) Narrative JASBIR - 10/05/2019 2:40 PM EDT This exam is auto-finalizing. It's purpose is for storage only. Yanique Mandujano APRN IMG FILM LIBRARY O RDERABLES [facility] Mary [place] documented in this encounter Visit Diagnoses Not on filedocumented in this encounter Care Teams Web Software Engineer Relationship Specialty Start Date End Date Yanique Mandujano APRN [address] [place] [phone] PCP - General 04/23/10 10/16/19 documented as of this encounter
[2024-02-19 07:31] LABS: Hemoglobin A1C 7.3 % (<5.7)
[2024-02-19 08:34] LABS: COMMENT (LAB VIEW ONLY) 291.44 mg/dL; Microalb ug/mg Crea 4.7 ug/mg Cr
[2024-02-19 08:37] LABS: ALT 39 U/L (14-59); AST 21 U/L (15-37); Albumin 3.6 g/dL (3.4-5.0); Alkaline Phosphatase 226 U/L (46-116); Anion Gap 12.9 mmol/L (3-11); BUN 14 mg/dL (7-18); Bilirubin, Total 0.26 mg/dL (0.2-1.0); CO2 24.1 mmol/L (21.0-32.0); Calcium 9.2 mg/dL (8.5-10.1); Calculated LDL 89 mg/dL (<100); Chloride 102 mmol/L (98-107); Cholesterol 166 mg/dL (<200); Estimated GFR 72.13 (mL/min/1.73m2); Glucose 126 mg/dL (74-106); HDL Cholesterol 52 mg/dL (40-60); Potassium 4.2 mmol/L (3.5-5.1); Sodium 139 mmol/L (136-145); Total Protein 7.6 g/dL (6.4-8.2); Triglyceride 125 mg/dL (<150)
== END 2024-02-19 01:07 | disposition home or self-care (01) ==
LOC: LBO 01:06
PROVIDERS: PCP Nurse Practitioner Adult Health; Referring Provider Nurse Practitioner Adult Health; Visit Provider Nurse Practitioner Adult Health
DX: E13.9 Other specified diabetes mellitus without complications (principal); E78.2 Mixed hyperlipidemia
CPT/HCPCS: 36415; 80053; 80061; 82043; 82570; 83036

== ENCOUNTER 2024-08-04 14:18 | Emergency (ER) | payer MEDICARE, SELFPAY ==
[2024-08-04 14:33] VITALS: BP 124/88; PULSE 95; RESP 18; TEMP 36.4; O2SAT 97
--- NOTE | 2024-08-04 14:45 | DI.CT_ITS ---
Exam(s) CT HEAD NECK WO EXAM: CT HEAD NECK WO CLINICAL HISTORY: fall. TECHNIQUE: Imaging Protocol: Axial computed tomography images with coronal and sagittal reformatted images were created and reviewed COMPARISON: No exams were available for comparison FINDINGS: CT Head: Ventricles and Extra axial spaces: Normal in size and morphology for the patient's age. Hemorrhage: None. Cerebral parenchyma: Unremarkable for age. Midline shift: None. Brainstem/Cerebellum: For age. Calvarium: Normal. Visualized Paranasal sinuses/Mastoids: Small amount mucous at the floor of the right maxillary sinus, not fully included on the exam. Soft Tissues: Unremarkable. CT Cervical Spine: Bones: No acute fracture or subluxation. No significant degenerative changes. Soft Tissues: Unremarkable. Lung Apices: Clear. IMPRESSION: 1. No acute intracranial process. 2. No acute fracture or subluxation in the cervical spine. RADIATION DOSE DELIVERED: Total DLP DATA REPOSITORY: All CT scans at this facility are submitted to the National Radiology Data Registry (NRDR) Dose Index Registry (DIR) with the [employer] (ACR). RADIATION OPTIMIZATION: All CT scans at this facility use at least one of these dose optimization te chniques: automated exposure control; mA and/or kV adjustment per patient size (includes targeted exa ms where dose is matched to clinical indication); or iterative reconstruction.
--- NOTE | 2024-08-04 14:45 | DI.CT_ITS ---
Exam(s) CT THORACIC SPINE WO EXAM: CT THORACIC SPINE WO CLINICAL HISTORY: fall. TECHNIQUE: Imaging Protocol: Axial computed tomography images with coronal and sagittal reformatted images were created and reviewed. CONTRAST MATERIAL: Noncontrast COMPARISON: CR XR CHEST 2V PA LATERAL from 08/09/[address] ABDOMEN PELVIS W from CR XR THORACIC SPINE COMPLETE from 05/23/[address] ABDOMEN PELVIS W from 11/20/2023 FINDINGS: Bones: No fractures or dislocations are seen. The alignment of the spine is normal including the cerv icothoracic junction. Mild degenerative disc changes. Lungs: Left nodular pleural thickening and mild adjacent paraseptal emphysematous changes. Soft tissues: The soft tissues of the chest are unremarkable. No large disk herniations are identifie d. IMPRESSION: No acute abnormality. RADIATION DOSE DELIVERED: Total DLP DATA REPOSITORY: All CT scans at this facility are submitted to the National Radiology Data Registry (NRDR) Dose Index Registry (DIR) with the [employer] (ACR). RADIATION OPTIMIZATION: All CT scans at this facility use at least one of these dose optimization te chniques: automated exposure control; mA and/or kV adjustment per patient size (includes targeted exa ms where dose is matched to clinical indication); or iterative reconstruction.
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
[2024-08-04] MEDS: Acetaminophen 500 MG TAB 1000 MG PO (14:58)
--- NOTE | 2024-08-04 15:25 | DI.RAD_ITS ---
Exam(s) XR ELBOW LT COMPLETE EXAM: XR ELBOW LT COMPLETE CLINICAL HISTORY: fall, injury. TECHNIQUE: 2D digital imaging was performed. Three views. COMPARISON: No exams were available for comparison FINDINGS: BONES: No acute fracture is present. No bony destructive lesion is seen. JOINTS: The elbow is normally aligned. No joint effusion is seen. SOFT TISSUE: Normal. IMPRESSION: Unremarkable radiographs of the left elbow. DATA REPOSITORY: RADIATION DOSE DELIVERED:
[2024-08-04 16:20] VITALS: BP 127/63; PULSE 82; RESP 18; TEMP 36.8; O2SAT 98
== END 2024-08-04 16:26 | disposition home or self-care (01) ==
PROVIDERS: Emergency Provider Emergency Medicine Emergency Medical Services; PCP Nurse Practitioner Adult Health
DX: M25.522 Pain in left elbow (principal); M54.2 Cervicalgia; W00.0XXA Fall on same level due to ice and snow, initial encounter; Y93.01 Activity, walking, marching and hiking
CPT/HCPCS: 99284; 70450; 70490; 72128; 73080

== ENCOUNTER 2024-11-11 01:39 | Outpatient (CLI) | payer MEDICARE, SELFPAY ==
[2024-11-11 12:46] LABS: Abs Immature Grans 0.03 10^3/uL (0.0-0.06); Absolute Eosinophil Count 0.85 10^3/uL (0.0-0.7); Absolute Lymphocyte Count 2.65 10^3/uL (1.2-3.4); Absolute Monocyte Count 0.36 10^3/uL (0.1-0.8); Absolute Neutrophil Count 6.27 10^3/uL (1.2-6.7); Eosinophils % 8.3 %; HCT 38.7 % (36.0-46.0); HGB 13.2 g/dL (11.2-15.7); Immature Grans % 0.3 %; Lymphocytes % 25.8 %; MCH 30.9 pg (27.0-33.0); MCHC 34.1 % (32.0-36.0); MCV 91 fL (80-95); MPV 9.4 fL (8.0-11.0); Monocytes % 3.5 %; Neutrophils % 61.1 %; Platelet Count 347 10^3/uL (130-400); RBC 4.27 10^6/uL (3.93-5.22); RDW 12.7 % (11.7-14.6); RDW-SD 42.1 fL; WBC 10.26 10^3/uL (4.4-10.8)
[2024-11-11 12:48] LABS: ESR 24 mm/hr (0-20)
[2024-11-11 12:55] LABS: ALT 48 U/L (14-59); AST 19 U/L (15-37); Albumin 3.4 g/dL (3.4-5.0); Alkaline Phosphatase 228 U/L (46-116); Anion Gap 10.7 mmol/L (3-11); BUN 17 mg/dL (7-18); Bilirubin, Total 0.2 mg/dL (0.2-1.0); CO2 25.3 mmol/L (21.0-32.0); CREATININE 1.1 mg/dL (0.55-1.02); Calcium 8.7 mg/dL (8.5-10.1); Chloride 100 mmol/L (98-107); Estimated GFR 63.94 (mL/min/1.73m2); Glucose 442 mg/dL (74-106); Potassium 4.5 mmol/L (3.5-5.1); Sodium 136 mmol/L (136-145); Total Protein 7.4 g/dL (6.4-8.2)
[2024-11-11 12:56] LABS: C-Reactive Protein < 0.50 mg/dL (<or=0.5)
== END 2024-11-11 01:40 | disposition home or self-care (01) ==
LOC: LBO 01:40
PROVIDERS: PCP Nurse Practitioner Adult Health; Visit Provider Nurse Practitioner Acute Care
DX: M05.79 Rheumatoid arthritis with rheumatoid factor of multiple sites without organ or systems involvement (principal)
CPT/HCPCS: 36415; 80053; 85652; 85025; 86140

== ENCOUNTER 2024-12-02 16:02 | Emergency (ER) | payer MEDICARE, SELFPAY ==
[2024-12-02 16:04] VITALS: BP 121/87; PULSE 99; RESP 18; TEMP 37.1; O2SAT 97
[2024-12-02 16:08] VITALS: BP 121/87; PULSE 99; RESP 18; TEMP 37.1; O2SAT 97
[2024-12-02] MEDS: Albuterol/Ipratropium 3 ML UPD VIAL UPD (16:37)
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
[2024-12-02 17:31] VITALS: BP 111/78; PULSE 90; RESP 16; O2SAT 96
[2024-12-02] MEDS: Albuterol/Ipratropium 3 ML UPD VIAL (17:40)
--- NOTE | 2024-12-03 13:03 | NUR.NOTE ---
Access chart to reconcile EKG orders with EKG's in [facility]. Nursing Note:
--- NOTE | 2024-12-07 08:46 | NUR.NOTE ---
Access chart to reconcile EKG's in [facility] and EKG orders. No EKG in [facility], none documented, order cancleed. Nursing Note:
== END 2024-12-02 17:36 | disposition home or self-care (01) ==
LOC: ER 17:16
PROVIDERS: Emergency Provider Student in an Organized Health Care Education/Training Program; PCP Nurse Practitioner Adult Health
DX: J45.901 Unspecified asthma with (acute) exacerbation (principal); R06.02 Shortness of breath; E11.8 Type 2 diabetes mellitus with unspecified complications
CPT/HCPCS: 99283; 99284; 94640; 76604; J7620

== ENCOUNTER → 2025-02-16 13:18 | Outpatient (BNVA) | payer MEDICARE, SELFPAY | PROVIDERS: PCP Nurse Practitioner Adult Health; Referring Provider Nurse Practitioner Adult Health; Visit Provider Surgery | DX: K44.9 Diaphragmatic hernia without obstruction or gangrene (principal) | CPT/HCPCS: 99213 ==

== ENCOUNTER 2025-03-14 19:31 | Outpatient (CLI) | payer MEDICARE, SELFPAY ==
[2025-03-14 17:07] LABS: ALT 44 U/L (14-59); AST 17 U/L (15-37); Albumin 4.2 g/dL (3.4-5.0); Alkaline Phosphatase 234 U/L (46-116); Anion Gap 11.5 mmol/L (3-11); BUN 9 mg/dL (7-18); Bilirubin, Total 0.3 mg/dL (0.2-1.0); CO2 30.5 mmol/L (21.0-32.0); Calcium 10.2 mg/dL (8.5-10.1); Chloride 98 mmol/L (98-107); Estimated GFR 71.69 (mL/min/1.73m2); Glucose 146 mg/dL (74-106); Potassium 3.6 mmol/L (3.5-5.1); Sodium 140 mmol/L (136-145); Total Protein 8.4 g/dL (6.4-8.2)
[2025-03-19 10:26] LABS: Estradiol, Mass Spectrometry 12 pg/mL
== END 2025-03-14 19:32 | disposition home or self-care (01) ==
LOC: LBO 19:31
PROVIDERS: PCP Nurse Practitioner Adult Health; Visit Provider Obstetrics & Gynecology
DX: N91.2 Amenorrhea, unspecified (principal); N91.1 Secondary amenorrhea
CPT/HCPCS: 36415; 80053; 84403; 82670; 82679; 84146

== ENCOUNTER → 2025-04-18 08:12 | Outpatient (BNVA) | payer MEDICARE, SELFPAY | PROVIDERS: PCP Nurse Practitioner Adult Health; Referring Provider Nurse Practitioner Adult Health; Visit Provider Student in an Organized Health Care Education/Training Program | DX: R13.10 Dysphagia, unspecified (principal); K44.9 Diaphragmatic hernia without obstruction or gangrene; K21.9 Gastro-esophageal reflux disease without esophagitis; Z72.0 Tobacco use | CPT/HCPCS: 99214 ==

== ENCOUNTER 2025-04-19 18:18 | Outpatient (REF) | payer MEDICARE, SELFPAY ==
--- NOTE | 2025-04-19 18:00 | PAPFT_PTH ---
PATIENT: Caryl Hager LOC: [facility] U#:[id number] AGE/SX: 44/F ROOM: RE04/19/[address]: Do Parisi APRN : 1980 BED: DIS: 04/19/2025 SPEC #: [id number] RECD: 04/20/25 11:15 STATUS: MAYDA REQ #: [id number] HITESH: 04/19/25 18:[address]: Do Parisi DEPT: ON LICENSE OF [facility] Cytology RECD BY: Concetta Guevara Tissues: 1 - CX/ENDOCX FOR PAP SMEARS Procedures: PAP THIN PREP/UVM Screening HPV DNA PROBE Comments: [id number] (HPV 16 & 18/45)
== END 2025-04-19 18:19 | disposition home or self-care (01) ==
LOC: LBN 18:18
PROVIDERS: PCP Nurse Practitioner Adult Health; Visit Provider Nurse Practitioner Adult Health
DX: Z12.4 Encounter for screening for malignant neoplasm of cervix (principal)
CPT/HCPCS: 88142; 87624

== ENCOUNTER 2025-05-19 06:48 | Day surgery (SDC) | payer MEDICARE, SELFPAY ==
[2025-05-19 07:28] VITALS: BP 121/89; PULSE 98; RESP 20; TEMP 36.6; O2SAT 98
[2025-05-19] MEDS: Lactated Ringers 1,000 ML 80 ML IV (07:41)
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
[2025-05-19 08:08] VITALS: BMI 31.8
--- NOTE | 2025-05-19 08:25 | STOM_PTH ---
PATIENT: Caryl Hager LOC: [facility] U#:[id number] AGE/SX: 44/F ROOM: RE05/19/[address]: Malia Valdez : 1980 BED: DIS: 05/19/2025 SPEC #: [id number] RECD: 05/19/25 12:20 STATUS: MAYDA RE #: [id number] HITESH: 05/19/25 08:[address]: Malia Valdez DEPT: Surgical Specimen RECD BY: Concetta Guevara ENTERED: 05/19/25 12:21 SP TYPE: STOMACH OTHR DR: Do Parisi APRN Tissues: 1 - STOMACH BIOPSY 2 - ESOPHAGUS BIOPSY Procedures: GROSS AND MICRO LEVEL 4 Comments: [id number]
[2025-05-19] MEDS: Albuterol/Ipratropium 3 ML UPD VIAL (08:36)
--- NOTE | 2025-05-19 08:37 | PDOC.DSDIS_ITS ---
Date of service: 05/19/25 Discharge Plan Disposition Patient Disposition: Home Condition: Good Discharge Details Reason For Visit: Dysphagia, GERD Attending Provider: Malia Valdez Primary Care Provider: Do Parisi Recommendations for Follow Up Recommended tests to be ordered by follow up provider: Follow up pathology Home Meds and New Rx's Prescriptions: Continued albuterol sulfate [ProAir HFA] 90 mcg/actuation HFA aerosol inhaler 2 puff inhalation Q4H PRN (Reason: shortness of breath or wheezing) Qty: 8.5 1RF Rx Instructions: Start with 2puffs TID; PHARM: Dispense with spacer metformin 500 mg tablet extended release 24 hr See Rx Instructions .ROUTE .COMPLEX Qty: 90 11RF Dose Instruction: TAKE 2 TABLETS BY MOUTH EVERY MORNING AND TAKE 3 TABLETS EVERY EVENING Rx Instructions: Take 3 tabs by mouth with food each evening. Airsupra 90-80 mcg/actuation HFA aerosol inhaler 2 inh inhalation ONCE Qty: 10.7 5RF Rx Instructions: as a single dose; may repeat up to 6 doses per day (12 inhalations) (DME) Novopen Echo Insulin Pen See Rx Instructions .Route Qty: 1 0RF Rx Instructions: For administration with Novolog Pen Fill Cartridge. lorazepam [Ativan] 1 mg tablet 1 mg PO BID PRN (Reason: anxiety) Rx Instructions: [facility] acetaminophen 500 mg tablet 500 - 1,000 mg PO TID PRN (Reason: pain) Qty: 90 0RF (DME) Blood Glucose Test Strip See Rx Instructions .MEDSUPPLY Qty: 100 3RF Rx Instructions: As directed to check blood glucose daily. On insulin. Dispense covered brand. (DME) lancets Misc See Rx Instructions .MEDSUPPLY Qty: 100 3RF Rx Instructions: As directed to check blood glucose daily. On insulin. Dispense covered brand. (DME) blood-glucose meter Misc See Rx Instructions .MEDSUPPLY Qty: 1 0RF Rx Instructions: As directed to check daily blood glucose. On insulin. Dispense covered brand. Dx: E11.9 to maintain HbA1c less than 7%. (DME) pen needle, diabetic 32 gauge x 5/32 needle See Rx Instructions .ROUTE .COMPLEX Qty: 100 0RF Dose Instruction: USE ONCE DAILY WITH TRESIBA Rx Instructions: USE ONCE DAILY WITH insulin (DME) pen needle, diabetic [Comfort EZ Pen [place]] 32 gauge x 5/32 needle See Rx Instructions .Route Qty: 400 4RF Rx Instructions: As directed for Basal and Bolus, 4x daily insulin aspart U-100 [Novolog FlexPen U-100 Insulin] 100 unit/mL (3 mL) insulin pen 5 unit subcut TID 90 Days Qty: 15 4RF Rx Instructions: Inject 5 unit subcutaneously with meals as directed lamotrigine 200 mg tablet 200 mg PO BID Patient Comments: takes once a day Rx Instructions: [facility] quetiapine 50 mg tablet 100 mg PO QHS Rx Instructions: per other facility records [facility] esomeprazole magnesium 40 mg capsule,delayed release(DR/EC) See Rx Instructions .ROUTE .COMPLEX Qty: 28 11RF Dose Instruction: TAKE 1 CAPSULE BY MOUTH DAILY FAILED PANTOPRAZOLE Rx Instructions: TAKE 1 CAPSULE BY MOUTH DAILY FAILED PANTOPRAZOLE (DME) Dexcom G7 Epic Ambulatory Analysts Misc See Rx Instructions .Route Qty: 1 0RF Rx Instructions: As directed (DME) Dexcom G7 Sensor Device See Rx Instructions .Route Qty: 9 3RF Rx Instructions: As directed insulin glargine [Lantus Solostar U-100 Insulin] 100 unit/mL (3 mL) insulin pen See Rx Instructions .ROUTE .COMPLEX Qty: 15 4RF Dose Instruction: INJECT 24 UNITS SUBCUTANEOUSLY DAILY OR DIRECTED NOT TO EXCEED 34 UNITS DAILY Rx Instructions: INJECT 24 UNITS SUBCUTANEOUSLY DAILY OR DIRECTED NOT TO EXCEED 34 UNITS DAILY (DME) pen needle, diabetic [CareTouch Pen Needle] 32 gauge x 5/32 needle See Rx Instructions .Route Qty: 600 4RF Rx Instructions: Injecting up to 6x daily for diabetes mellitus 1 management atorvastatin 40 mg tablet See Rx Instructions .ROUTE .COMPLEX Qty: 28 11RF Dose Instruction: TAKE 1 TABLET BY MOUTH AT BEDTIME Rx Instructions: TAKE 1 TABLET BY MOUTH AT BEDTIME amitriptyline 100 mg tablet 100 mg PO QHS Rx Instructions: along with 100 mg tab to total 125 mg daily [facility] trazodone 100 mg Tablet 200 mg PO QHS Rituxan 10 mg/mL concentrate IV Patient Comments: pt doesnt know her dose ipratropium-albuterol 0.5 mg-3 mg(2.5 mg base)/3 mL solution for nebulization 3 ml IH Q6H Qty: 90 0RF Discharge Instructions Additional Instructions: Your upper endoscopy went well today. You do have a small hiatal hernia with evidence of reflux changes at the junction between the esophagus and stomach. There was no evidence of a stricture of the esophagus. Some routine biopsies were performed today we will contact you once these results return. Please contact the general surgery office if you have any questions or concerns. 1. Do not drive, drink alcohol, operate machinery, make critical decisions, or do activities that require coordination or balance for 24 hours. 2. Go directly to the emergency room if you notice any of the following: Develop chills (warm to touch), or if you have a thermometer and your temperature is above 101 Difficulty breathing or difficultly swallowing Persistent vomiting Severe abdominal pain, other than gas cramps Severe chest pain Black, tarry stools Any bleeding ? exceeding one tablespoon 3. Call your physician if the site where your intravenous was started becomes red, swollen, painful, and warm to touch. 4. Your physician has reviewed your pre-procedure medications. Please continue to take those medications as previously ordered. You will be given specific information/education regarding any changes to your medications before leaving. 5. You may have a sore throat following this procedure which is normal. This should resolve in the coming days. Stand Alone Forms: Anesthesia Discharge Inst., Dominique Pabon ([facility]), Portal Information Activity:: Activity as Tolerated Diet:: As Tolerated Discharge Orders Discharge Orders: Discharge Order (Routine); Ordered 05/19/25 Ordered By: Malia Valdez DS: Diagnosis Discharge Diagnosis (1) GERD (gastroesophageal reflux disease): Status: Chronic (2) Hiatal hernia: (3) Dysphagia: Status: Acute
[2025-05-19 08:42] VITALS: BP 104/64; PULSE 89; RESP 16; TEMP 36.5; O2SAT 96
--- NOTE | 2025-05-19 08:42 | W.PM.ENDDOP ---
Date of service: 05/19/25 Time of Service: 08:42 Endoscopy Report DATE OF PROCEDURE: 05/19/25 PRE-OP DIAGNOSIS: Dysphagia, GERD POST-OP DIAGNOSIS: other (Hiatal hernia, Irregular GE junction) PROCEDURE: Upper endoscopy with biopsy SURGEON: Malia Valdez ANESTHESIA TYPE: General:No Airway ESTIMATED BLOOD LOSS: 1 PATHOLOGY: other (Antrum, GE junction ) COMPLICATIONS: None DISPOSITION: PACU INDICATIONS: Patient is a 44 yo female who presented to clinic due to dysphagia and ongoing reflux symptoms. She does have a known hiatal hernia. Consent was obtained prior to the procedure. PREP: Miralax/Dulcolax FINDINGS: Patient tolerated procedure poorly. Evidence of small hiatal hernia. Irregular GE junction which was biopsied. PROCEDURE DESCRIPTION: After adequate sedation, the upper endoscope was inserted and advanced in the duodenum under direct visualization. The scope was withdrawn and the mucosa inspected. The duodenum appeared normal. The stomach was normal with no evidence of ulcerations or erosions. ?The antrum area was biopsied and also checked for H. pylori.? Retroflexion view in the stomach showed evidence of a small hiatal hernia. At the lower esophagus Z line area, this was inspected and noted to be slightly irregular. A cold forcep biopsy of the GE junction was performed. No evidence of esophageal strictures. Otherwise, the esophagus was normal. The scope was completely withdrawn from the patient. The patient tolerated the procedure with no immediate complications.
[2025-05-19 09:04] VITALS: BP 106/87; PULSE 85; RESP 16; TEMP 36.4; O2SAT 97
--- NOTE | 2025-05-19 09:10 | W.ANESPOSTOP ---
Postoperative Evaluation Date, Time and Location Date Performed: 05/19/25 Time Performed: 08:53 Patient Location: Day Surgery Unit Vital Signs Most Recent Imported Vital Signs: Most Recent Vital Signs Temp Pulse Resp BP Pulse Ox 36.4 C L 85 16 106/87 97 05/19/25 09:04 05/19/25 09:04 05/19/25 09:04 05/19/25 09:04 05/19/25 09:04 Pain Score Most Recent Pain Score: Most Recent Pain Score Pain Level 0 05/19/25 09:04 Assessment Mental Status: Awake (Alert & Oriented to Patient Baseline) Airway and Respiratory Function: Patent airway with normal (patient baseline) respiratory exam Cardiovascular Function: Hemodynamically Stable Hydration Status: Adequately Hydrated Nausea & Vomiting: No Nausea or Vomiting Pain: Pt. Denies Any Pain Peripheral Nerve Block: Patient did not receive a nerve block
== END 2025-05-19 09:10 | disposition home or self-care (01) ==
PROVIDERS: PCP Nurse Practitioner Adult Health; Visit Provider Student in an Organized Health Care Education/Training Program
PROC: 0DJ68ZZ Inspection of Stomach, Via Natural or Artificial Opening Endoscopic (ICD-10-PCS; CPT 43235; principal; 2025-05-19 08:15)
DX: K21.00 Gastro-esophageal reflux disease with esophagitis, without bleeding (principal); K44.9 Diaphragmatic hernia without obstruction or gangrene; R13.10 Dysphagia, unspecified; K22.89 Other specified disease of esophagus
CPT/HCPCS: 43239; 88305; J2003; J2704; J7620